=== PATIENT | male | born 1955 | race Caucasian/White ===

== ENCOUNTER 2016-04-22 07:25 | Observation (INO) | payer MEDICARE, OTHER ==
[2016-04-22] MEDS ORDERED: SODIUM CHLORIDE 0.9% 1,000 ML IV STA (08:33)
[2016-04-22] MEDS ORDERED: ONDANSETRON 4 MG/2 ML VIAL IVP STA (08:34)
[2016-04-22] MEDS ORDERED: MORPHINE SULFATE 4 MG/ML SYRINGE IV STA (08:34)
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
[2016-04-22 09:18] LABS: Basophils % (A) 0 %; CH 34.4; CHCM 34.3; Eosinophils # (A) 0.3 k/uL (0-0.7); Eosinophils % (A) 2 %; HCT 55.2 % (39.0-53.0); HDW 2.14; HGB 18.9 gm/dL (13.0-17.5); Luc # (Auto) 0.15; Luc % (Auto) 1; Lymphocytes % (A) 7 %; MCH 34.6 pg (25.0-35.0); MCHC 34.3 g/dL (31.0-37.0); MCV 100.8 fL (80.0-100.0); Mean Platelet Volume 6.9; Monocytes # (A) 0.7 k/uL (0-1.0); Monocytes % (A) 5 %; Neutrophils # (A) 11.2 k/uL (1.3-7.7); Neutrophils % (A) 84 %; RBC 5.47 m/uL (4.30-5.90); RDW 12.9 % (11.5-15.5); WBC 13.3 k/uL (3.8-10.6); WBC (Perox) 13.15
[2016-04-22 09:31] LABS: ALT 62 U/L (21-72); AST 54 U/L (17-59); Alkaline Phosphatase 85 U/L (38-126); Amylase 72 U/L (30-110); Anion Gap 15 mmol/L; Blood Urea Nitrogen 5 mg/dL (9-20); Calcium 9.8 mg/dL (8.4-10.2); Carbon Dioxide 23 mmol/L (22-30); Chloride 107 mmol/L (98-107); Glucose 86 mg/dL (74-99); Magnesium 1.6 mg/dL (1.6-2.3); Non-African American GFR(MDRD) >60 (>60 ml/min/1.73 sqM); Potassium 4.1 mmol/L (3.5-5.1); Sodium 145 mmol/L (137-145); Total Bilirubin 0.7 mg/dL (0.2-1.3); Total Protein 7.8 g/dL (6.3-8.2)
[2016-04-22 09:36] LABS: Creatine Kinase 135 U/L (55-170)
[2016-04-22 09:37] LABS: Alcohol 118 mg/dL
[2016-04-22 09:39] LABS: INR 1.1 (<1.1); Partial Thromboplastin Time 27.4 sec (22.0-30.0); Prothrombin Time 11.1 sec (9.0-12.0)
[2016-04-22 09:50] LABS: Creatine Kinase MB 2.1 ng/mL (0.0-2.4); Troponin I <0.012 ng/mL (0.000-0.034)
[2016-04-22] MEDS ORDERED: HYDROmorphone 1 MG/ML 1 ML SYRINGE IVP STA ×2 (10:40→12:19)
[2016-04-22] MEDS ORDERED: RX INFO: IV CONTRAST WAS GIVEN 1 EACH MISC MISCELLANE PRN (10:44)
--- NOTE | 2016-04-22 10:45 | XR ---
Abdomen HISTORY: Pain Frontal view of the abdomen on 2 images. No comparisons Lung bases show some patchy increased density in the left. No pneumoperitoneum or bowel obstruction e vident. Distortion of the pubic symphysis likely due to remote trauma. There are vascular calcificati ons within the pelvis. IMPRESSION: Nonobstructive bowel gas pattern, additional findings above, correlate for history of tra kacie. There may be some basilar atelectasis, scarring, correlate to exclude pneumonia.
--- NOTE | 2016-04-22 10:47 | XR ---
EXAMINATION TYPE: XR chest 2V DATE OF EXAM: 04/22/2016 10:31 AM COMPARISON: Prior chest x-ray 05 July 2014 HISTORY: Chest pain TECHNIQUE: Frontal and lateral views of the chest are obtained. FINDINGS: Some minimal patchy density may be present at the left heart border. No pneumothorax or pl eural effusion evident. Exam is expiratory, interstitium is slightly increased as on prior exam. Hear t size is stable. Pulmonary vascularity and renetta are within normal limits. IMPRESSION: Expiratory exam. There may be some lingular, basilar atelectasis versus scarring, correla te to exclude pneumonia. Follow-up as indicated.
--- NOTE | 2016-04-22 11:46 | CT ---
EXAMINATION TYPE: CT abdomen pelvis w con DATE OF EXAM: 04/22/2016 11:20 AM COMPARISON: NONE HISTORY: 60-year-old male with left upper quad pain TECHNIQUE: Contiguous axial scanning of the abdomen and pelvis following administration of 100 ml Omn ipaque 300 IV contrast. Delayed images through the kidneys and coronal/sagittal reconstructions perf ormed. CT DLP: 1535 mGycm Automated exposure control for dose reduction was used. FINDINGS: Heart is upper limits of normal in size without pericardial effusion. There is a moderate-sized hiata l hernia. Dependent atelectasis at the left base with some patchy posterior left basilar opacity. Diffuse low-attenuation of the hepatic parenchyma without focal lesion seen. Portal venous system is patent. No biliary ductal dilatation. Gallbladder, adrenal glands, kidneys, spleen, and pancreas appear within normal limits. Mild atherosclerotic calcifications throughout the abdominal aorta and iliac arteries. No dilated small bowel, free fluid, or free air. No mesenteric or retroperitoneal lymphadenopathy seen. Normal appendix. Left hemicolonic diverticulosis along the descending colon and proximal to mid sigmoid colon. No blaise colonic inflammatory change to suggest acute diverticulitis. There is a left lumbar triangle hernia. The herniating retroperitoneal fat measures 7.1 x 5.4 cm. The re is some fat stranding across the 2.0 cm wide hernia neck and within the intra-abdominal space is w ell. Bladder is urine distended. Prostate gland mildly prominent at 4.3 cm wide. No abnormal fluid collect ion in the pelvis or pelvic lymphadenopathy seen. Bones: There appears to be extensive old fracture deformities of the pubic bones, left inferior pubic ramus, and degenerative changes at the left SI joint, mild at both hips. There also appears to be a mildly displaced fracture of the left posterior 11th rib. There appears to have been prior surgical harvesting of the left rectus abdominis muscle. IMPRESSION: 1. LEFT LUMBAR TRIANGLE HERNIA WITH THE HERNIATING FAT MEASURING 7.1 X 5.4 CM. THE HERNIA NECK MEASUR ES 2 CM WIDE. THERE IS SOME FAT STRANDING IN THIS REGION SUGGESTING SOME INFLAMMATION. CORRELATE FOR ANY INCARCERATION. 2. MILDLY DISPLACED ACUTE LEFT POSTERIOR 11TH RIB FRACTURE. 3. LEFT HEMICOLONIC DIVERTICULOSIS WITHOUT ACUTE DIVERTICULITIS. 4. HEPATIC STEATOSIS. CORRELATE WITH LFT's, LIPID PROFILE, AND PATIENT RISK FACTORS. 5. OLD TRAUMA TO THE PUBIC BONES AND LEFT ISCHIAL RAMUS.
[2016-04-22] MEDS ORDERED: NALOXONE 0.4 MG/ML 1 ML VIAL IV PRN (13:12)
[2016-04-22] MEDS ORDERED: SODIUM CHLORIDE 0.9% 1,000 ML IV ONE (13:12)
[2016-04-22] MEDS ORDERED: ACETAMINOPHEN TAB 325 MG TAB PO PRN (13:12)
[2016-04-22] MEDS ORDERED: ONDANSETRON 4 MG/2 ML VIAL IVP PRN (13:12)
[2016-04-22] MEDS: HYDROmorphone 1 MG/ML 1 ML SYRINGE IV PRN ×4 (13:24→22:05)
[2016-04-22] MEDS ORDERED: THIAMINE 100 MG/ML 2 ML VIAL IM STA (14:23)
[2016-04-22] MEDS ORDERED: LORazepam 2 MG/ML SYRINGE IV PRN ×2 (14:23)
[2016-04-22] MEDS: LORazepam 2 MG/ML SYRINGE IV PRN ×3 (14:45→23:57)
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
[2016-04-22] MEDS: THIAMINE 100 MG TAB PO SCH (17:55)
[2016-04-22] MEDS: COLLAGENASE 250 UNIT/GM OINTMENT 30 GM TUBE TOPICAL SCH (17:57)
[2016-04-22] MEDS: SODIUM CHLORIDE 0.9% 1,000 ML IV SCH (18:04)
[2016-04-22 19:23] VITALS: BMI 32.1
[2016-04-22] MEDS: MORPHINE SULFATE ER 15 MG TABLET PO SCH (20:21)
[2016-04-22] MEDS ORDERED: LISINOPRIL 5 MG TAB PO STA (23:19)
[2016-04-22] MEDS ORDERED: MELATONIN 5 MG TABLET PO PRN (23:20)
[2016-04-22] MEDS ORDERED: oxyCODONE-APAP 10-325MG 1 EACH TAB PO PRN (23:21)
[2016-04-23] MEDS: HYDROmorphone 1 MG/ML 1 ML SYRINGE IV PRN ×4 (01:13→10:31)
[2016-04-23] MEDS: SODIUM CHLORIDE 0.9% 1,000 ML IV SCH (04:23)
[2016-04-23 07:24] VITALS: BP 159/93; PULSE 60; RESP 22; TEMP 97.1
[2016-04-23 08:45] LABS: Basophils # (A) 0.1 k/uL (0-0.2); Basophils % (A) 1 %; CH 34.3; CHCM 33.7; Eosinophils # (A) 0.4 k/uL (0-0.7); Eosinophils % (A) 5 %; HCT 51.7 % (39.0-53.0); HDW 2.19; HGB 16.6 gm/dL (13.0-17.5); Luc # (Auto) 0.09; Luc % (Auto) 1; Lymphocytes # (A) 1.2 k/uL (1.0-4.8); Lymphocytes % (A) 13 %; MCH 32.7 pg (25.0-35.0); MCV 102.2 fL (80.0-100.0); Macrocytosis Slight; Mean Platelet Volume 8.1; Monocytes # (A) 0.5 k/uL (0-1.0); Monocytes % (A) 5 %; Neutrophils # (A) 6.8 k/uL (1.3-7.7); Neutrophils % (A) 76 %; RBC 5.06 m/uL (4.30-5.90); RDW 13.1 % (11.5-15.5); WBC (Perox) 8.54
[2016-04-23 08:49] LABS: ALT 50 U/L (21-72); AST 40 U/L (17-59); Alkaline Phosphatase 70 U/L (38-126); Anion Gap 10 mmol/L; Blood Urea Nitrogen 8 mg/dL (9-20); Calcium 9.3 mg/dL (8.4-10.2); Carbon Dioxide 25 mmol/L (22-30); Chloride 104 mmol/L (98-107); Glucose 99 mg/dL (74-99); Non-African American GFR(MDRD) >60 (>60 ml/min/1.73 sqM); Potassium 3.9 mmol/L (3.5-5.1); Sodium 139 mmol/L (137-145); Total Bilirubin 1.2 mg/dL (0.2-1.3); Total Protein 6.5 g/dL (6.3-8.2)
[2016-04-23] MEDS: MORPHINE SULFATE ER 15 MG TABLET PO SCH (08:55)
[2016-04-23 08:56] LABS: Prealbumin 22 mg/dL (18-36)
[2016-04-23] MEDS ORDERED: LISINOPRIL 5 MG TAB PO SCH (09:00)
[2016-04-23] MEDS: LORazepam 2 MG/ML SYRINGE IV PRN (11:54)
[2016-04-23] MEDS: THIAMINE 100 MG TAB PO SCH (11:55)
[2016-04-23] MEDS ORDERED: MULTIVITAMINS, THERA 1 EACH TAB PO SCH (12:00)
[2016-04-23] MEDS ORDERED: FOLIC ACID 1 MG TAB PO SCH (12:00)
[2016-04-23] MEDS ORDERED: NICOTINE 21MG/24HR PATCH TRANSDERM STA (12:02)
[2016-04-23] MEDS: COLLAGENASE 250 UNIT/GM OINTMENT 30 GM TUBE TOPICAL SCH (12:03)
--- NOTE | 2016-04-23 16:16 | P.DS ---
Providers Date of admission: 04/22/16 13:12 Expected date of discharge: 04/23/16 Attending physician: Warren Carrera Primary care physician: Timothy Mccormack [facility] Course: History of Present Illness H&P Date: 04/22/16 60-year-old gentleman with history of alcohol abuse was in the hospital with acute onset left flank pain. Patient apparently had significant amount of pain since January since he fell and broke his rib. Patient however felt something pop today and hence came in the hospital. In the ER patient underwent a computed tomography scan of the abdomen with contrast and was noted to have a left lumbar triangle herniation with fat that is currently incarcerated. Patient denies having any fevers chills nausea vomiting. Patient states the pain is severe and is not able to bear weight on it. Patient was also noted to have a blood alcohol level greater than 100. States that he only had half a beer prior to coming to the hospital due to the severe pain. Patient was admitted multiple times for cellulitis in the past and alcohol use and its consequences. 04/23/2016 Patient was noted to be ambulating around the room. I discussed that pain control is the plan of care. Patient was given morphine XL R 50 mg every 12 hours and Percocet 10 mg/325 mg for breakthrough pain. Patient was discussed the patient should go see a pain specialist. Patient was ambulated without difficulty however patient wanted to stay another 24 hours for IV pain medications. Stated that he is not able to walk however I monitored him walk through his room. GEN appearance appears to be in moderate distress alert oriented 3 Lungs good air entry clear to auscultation no wheezing is appreciated Heart S1 and S2 heart regular rate and rhythm no murmurs appreciated Abdomen is soft and diffusely tender there is point tenderness on the left flank with a prior bruise around the lower ribs on the midaxillary line. Neuro no focal motor or sensory deficits appreciated Skin a previous surgical scars appreciated on the left lower extremity there is a scab that is concerning for eschar Assessment and Plan Plan: #1 severe abdominal pain secondary to fat strangulation of the left lumbar hernia and a rib fracture.. #2 multiple old fractures likely secondary to multiple falls in this patient with alcohol use #3 history of a previous left lower extremity trauma status post surgical repair #4 history of depression #5 COPD #6 hypertension #7 chronic pain syndrome To continue Santyl application to the wound on the left lower x-ray. Wound care will be consulted. Morphine XL R and Percocet for breakthrough will be prescribed. Patient is to be discharged home there is no need for continued inpatient care. appears to have some pain seeking behavior. Apparently in the past patient was admitted multiple times the hospital. Patient stated he was not able to walk however stated that is stable to be discharged he got angry, security had to be called. Patient walked out of the hospital without any difficulty. There is no surgical intervention. Pain management with the above prescribed regimen would have been the plan of care even in the inpatient setting hence patient is discharged home. Patient is referred to pain management as well Patient Condition at Discharge: Good Plan - Discharge Summary New Discharge Prescriptions: Collagenase [Santyl] 1 applic TOPICAL DAILY #1 applic Melatonin 5 mg PO HS PRN #30 tablet PRN Reason: Insomnia Morphine Sulfate ER [Ms Contin] 15 mg PO Q12HR #60 tablet oxyCODONE-APAP 10-325MG [Percocet 10-325 mg] 1 each PO Q8H PRN #60 tab PRN Reason: Moderate Pain Discharge Medication List clonazePAM [Clonazepam] 1 mg PO QID 01/12/16 [History] Lisinopril [Zestril] 5 mg PO DAILY 04/22/16 [History] oxyCODONE-APAP 10-325MG [Percocet 10-325 mg] 1 tab PO TID PRN 04/22/16 [History] Collagenase [Santyl] 1 applic TOPICAL DAILY #1 applic 04/23/16 [Rx] Melatonin 5 mg PO HS PRN #30 tablet 04/23/16 [Rx] Morphine Sulfate ER [Ms Contin] 15 mg PO Q12HR #60 tablet 04/23/16 [Rx] oxyCODONE-APAP 10-325MG [Percocet 10-325 mg] 1 each PO Q8H PRN #60 tab 04/23/16 [Rx] Follow up Appointment(s)/Referral(s): Nneka Edwards MD [STAFF PHYSICIAN] - 1 Week Timothy Marley III, MD [Primary Care Provider] - 1-2 days Candido Andersen MD [STAFF PHYSICIAN] - 1 Week Activity/Diet/Wound Care/Special Instructions: apply santyl on the wound. Discussed with the pt. Discharge Disposition: HOME SELF-CARE
== END 2016-04-23 13:51 | disposition home or self-care (01) ==
LOC: EC 07:25 → 4MS4W 13:12
PROVIDERS: ADMIT Internal Medicine; ATTEND Internal Medicine
DX: K45.8 Other specified abdominal hernia without obstruction or gangrene (principal); S22.32XA Fracture of one rib, left side, initial encounter for closed fracture; R29.6 Repeated falls; F10.10 Alcohol abuse, uncomplicated; F12.90 Cannabis use, unspecified, uncomplicated; F17.210 Nicotine dependence, cigarettes, uncomplicated; F32.9 Major depressive disorder, single episode, unspecified; F41.9 Anxiety disorder, unspecified; F43.10 Post-traumatic stress disorder, unspecified; G89.4 Chronic pain syndrome; I10 Essential (primary) hypertension; I25.2 Old myocardial infarction; J44.9 Chronic obstructive pulmonary disease, unspecified; J45.909 Unspecified asthma, uncomplicated; K57.30 Diverticulosis of large intestine without perforation or abscess without bleeding; M86.68 Other chronic osteomyelitis, other site; Z82.49 Family history of ischemic heart disease and other diseases of the circulatory system; Z82.5 Family history of asthma and other chronic lower respiratory diseases; Z91.19 Patient's noncompliance with other medical treatment and regimen; Z79.899 Other long term (current) drug therapy; Z88.6 Allergy status to analgesic agent; Z88.1 Allergy status to other antibiotic agents; Z88.5 Allergy status to narcotic agent; Z88.0 Allergy status to penicillin; Z88.2 Allergy status to sulfonamides; Z88.8 Allergy status to other drugs, medicaments and biological substances; Y90.5 Blood alcohol level of 100-119 mg/100 ml
CPT/HCPCS: 99285 ×2; 96374 ×2; 96375 ×4; 96376 ×4; 96361 ×4; 96372; 36415; 93005; 84134; 80053 ×2; 82150; 82550; 82553; 83690; 83735; 84484; 85025 ×2; 85610; 85730; 80320; 71020; 74000; 74177; G0378 ×2; J2060 ×2; J2270; J3411; J2405; J1170 ×2; Q9967

== ENCOUNTER 2016-07-07 16:57 | Inpatient (IN) | payer MEDICARE, OTHER ==
[2016-07-07] MEDS ORDERED: IV VANCOMYCIN PER PHARMACY 1 EACH MISC MISCELLANE PRN (18:58)
[2016-07-07] MEDS ORDERED: VANCOMYCIN 1,500 MG in SODIUM CHLORIDE 0.9% 250 ML IVPB ONE (18:58)
[2016-07-07 19:37] LABS: Basophils # (A) 0.1 k/uL (0-0.2); Basophils % (A) 1 %; CH 34.3; CHCM 33.6; Eosinophils # (A) 0.4 k/uL (0-0.7); Eosinophils % (A) 5 %; HCT 53.9 % (39.0-53.0); HDW 2.14; Luc # (Auto) 0.19; Luc % (Auto) 2; Lymphocytes # (A) 1.3 k/uL (1.0-4.8); Lymphocytes % (A) 16 %; MCH 34.2 pg (25.0-35.0); MCHC 33.3 g/dL (31.0-37.0); MCV 102.6 fL (80.0-100.0); Macrocytosis Slight; Mean Platelet Volume 7.2; Monocytes # (A) 0.6 k/uL (0-1.0); Monocytes % (A) 7 %; Neutrophils # (A) 5.8 k/uL (1.3-7.7); Neutrophils % (A) 70 %; RBC 5.26 m/uL (4.30-5.90); RDW 12.8 % (11.5-15.5); WBC 8.3 k/uL (3.8-10.6); WBC (Perox) 8.62
[2016-07-07] MEDS: SODIUM CHLORIDE 0.9% 1,000 ML IV SCH (19:37)
[2016-07-07 19:49] LABS: ALT 67 U/L (21-72); AST 76 U/L (17-59); Alkaline Phosphatase 74 U/L (38-126); Anion Gap 12 mmol/L; Blood Urea Nitrogen 10 mg/dL (9-20); Carbon Dioxide 24 mmol/L (22-30); Chloride 102 mmol/L (98-107); Glucose 80 mg/dL (74-99); Non-African American GFR(MDRD) >60 (>60 ml/min/1.73 sqM); Potassium 4.5 mmol/L (3.5-5.1); Sodium 138 mmol/L (137-145); Total Bilirubin 0.8 mg/dL (0.2-1.3); Total Protein 7.5 g/dL (6.3-8.2)
[2016-07-07] MEDS: oxyCODONE-APAP 10-325MG 1 EACH TAB PO PRN (22:16)
[2016-07-07] MEDS: GABAPENTIN 300 MG CAP PO PRN (22:41)
[2016-07-07] MEDS: clonazePAM 1 MG TAB PO PRN (22:41)
[2016-07-07] MEDS ORDERED: LISINOPRIL 5 MG TAB PO STA (23:47)
[2016-07-08] MEDS: traMADol 50 MG TAB PO PRN ×3 (00:14→19:04)
[2016-07-08] MEDS: VANCOMYCIN 1,500 MG in SODIUM CHLORIDE 0.9% 250 ML IVPB SCH ×3 (04:12→20:57)
[2016-07-08] MEDS: oxyCODONE-APAP 10-325MG 1 EACH TAB PO PRN ×4 (04:12→22:47)
[2016-07-08] MEDS: clonazePAM 1 MG TAB PO PRN ×4 (04:54→22:47)
[2016-07-08] MEDS: SODIUM CHLORIDE 0.9% 1,000 ML IV SCH ×3 (06:28→20:59)
[2016-07-08] MEDS: LISINOPRIL 5 MG TAB PO SCH (09:19)
[2016-07-08] MEDS: MORPHINE SULFATE ER 15 MG TABLET PO SCH ×2 (09:19→20:57)
[2016-07-08] MEDS: COLLAGENASE 250 UNIT/GM OINTMENT 30 GM TUBE TOPICAL SCH (09:20)
[2016-07-08] MEDS: NICOTINE 21MG/24HR PATCH TRANSDERM SCH (11:10)
[2016-07-08] MEDS: MULTIVITAMINS, THERA 1 EACH TAB PO SCH (11:23)
[2016-07-08] MEDS: GABAPENTIN 300 MG CAP PO PRN ×2 (11:23→23:25)
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
[2016-07-08] MEDS ORDERED: VANCOMYCIN TROUGH DUE 1 EACH MISC MISCELLANE ONE (19:00)
[2016-07-09] MEDS: traMADol 50 MG TAB PO PRN ×3 (01:09→16:00)
[2016-07-09] MEDS: VANCOMYCIN 1,500 MG in SODIUM CHLORIDE 0.9% 250 ML IVPB SCH ×2 (03:08→11:28)
[2016-07-09] MEDS: clonazePAM 1 MG TAB PO PRN ×2 (05:33→13:10)
[2016-07-09] MEDS: oxyCODONE-APAP 10-325MG 1 EACH TAB PO PRN ×2 (05:33→13:09)
[2016-07-09 07:27] VITALS: RESP 16
[2016-07-09] MEDS: MORPHINE SULFATE ER 15 MG TABLET PO SCH (08:23)
[2016-07-09] MEDS: LISINOPRIL 5 MG TAB PO SCH (08:23)
[2016-07-09] MEDS: NICOTINE 21MG/24HR PATCH TRANSDERM SCH (08:24)
[2016-07-09] MEDS: COLLAGENASE 250 UNIT/GM OINTMENT 30 GM TUBE TOPICAL SCH (11:28)
[2016-07-09] MEDS: SODIUM CHLORIDE 0.9% 1,000 ML IV SCH (11:28)
[2016-07-09] MEDS: GABAPENTIN 300 MG CAP PO PRN (12:06)
[2016-07-09] MEDS: MULTIVITAMINS, THERA 1 EACH TAB PO SCH (12:06)
[2016-07-09 15:16] VITALS: BP 122/88; PULSE 88; TEMP 97.2
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
== END 2016-07-09 17:52 | disposition home or self-care (01) | DRG 603 ==
LOC: 4MS4W 17:02
PROVIDERS: ADMIT Internal Medicine; ATTEND Internal Medicine
DX: L03.116 Cellulitis of left lower limb (principal); F11.20 Opioid dependence, uncomplicated; I10 Essential (primary) hypertension; S81.802D Unspecified open wound, left lower leg, subsequent encounter; J45.909 Unspecified asthma, uncomplicated; J44.9 Chronic obstructive pulmonary disease, unspecified; G89.29 Other chronic pain; M19.91 Primary osteoarthritis, unspecified site; I25.2 Old myocardial infarction; F32.9 Major depressive disorder, single episode, unspecified; I87.8 Other specified disorders of veins; F43.10 Post-traumatic stress disorder, unspecified; F10.10 Alcohol abuse, uncomplicated; F17.210 Nicotine dependence, cigarettes, uncomplicated; R26.2 Difficulty in walking, not elsewhere classified; Z16.24 Resistance to multiple antibiotics; Z91.19 Patient's noncompliance with other medical treatment and regimen; F12.90 Cannabis use, unspecified, uncomplicated; Z87.828 Personal history of other (healed) physical injury and trauma; Z86.14 Personal history of Methicillin resistant Staphylococcus aureus infection; Z88.1 Allergy status to other antibiotic agents; Z88.2 Allergy status to sulfonamides; Z88.8 Allergy status to other drugs, medicaments and biological substances; Z79.899 Other long term (current) drug therapy; V89.2XXS Person injured in unspecified motor-vehicle accident, traffic, sequela
CPT/HCPCS: 80053; 80202; 85025; 87070; 87075; 87077; 87186; 87205

== ENCOUNTER 2018-05-07 20:12 | Inpatient (IN) | payer MEDICARE, OTHER ==
[2018-05-07] MEDS ORDERED: ACETAMINOPHEN TAB 500 MG TAB PO STA (20:58)
[2018-05-07] MEDS ORDERED: ONDANSETRON 4 MG/2 ML VIAL IVP STA (20:58)
[2018-05-07] MEDS ORDERED: MORPHINE SULFATE 4 MG/ML SYRINGE IVP STA (20:58)
[2018-05-07] MEDS ORDERED: SODIUM CHLORIDE 0.9% 1,000 ML IV ONE (20:58)
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
[2018-05-07 22:11] LABS: Basophils % (A) 0 %; Eosinophils # (A) 0.4 k/uL (0-0.7); Eosinophils % (A) 4 %; HCT 51.5 % (39.0-53.0); HGB 17.8 gm/dL (13.0-17.5); Lymphocytes # (A) 1.2 k/uL (1.0-4.8); Lymphocytes % (A) 12 %; MCH 35.4 pg (25.0-35.0); MCHC 34.6 g/dL (31.0-37.0); MCV 102.2 fL (80.0-100.0); Macrocytosis Slight; Mean Platelet Volume 7.4; Monocytes # (A) 0.7 k/uL (0-1.0); Monocytes % (A) 7 %; Neutrophils # (A) 7.5 k/uL (1.3-7.7); Neutrophils % (A) 75 %; Platelet Count 265 k/uL (150-450); RBC 5.03 m/uL (4.30-5.90); RDW 12.4 % (11.5-15.5)
--- NOTE | 2018-05-07 22:15 | XR ---
EXAMINATION TYPE: XR tibia fibula LT DATE OF EXAM: 05/07/2018 COMPARISON: 05/07/2018 HISTORY: Pain TECHNIQUE: 2 views FINDINGS: There is old fracture mid shaft of the tibia. I see no acute fracture nor dislocation. Ther e is no focal bone destruction. There is muscle atrophy. There is old fracture of the head of the fib jaime also. There is a transverse screw fixing the proximal tibia. Ankle mortise is anatomic. IMPRESSION: Old fractures. No acute fracture seen. No change compared to old exam. No sign of osteomy elitis.
[2018-05-07 22:21] LABS: ALT 40 U/L (21-72); AST 75 U/L (17-59); Albumin 4.1 g/dL (3.5-5.0); Alcohol 14 mg/dL; Alkaline Phosphatase 115 U/L (38-126); Anion Gap 11 mmol/L; Blood Urea Nitrogen 3 mg/dL (9-20); Calcium 9.9 mg/dL (8.4-10.2); Carbon Dioxide 25 mmol/L (22-30); Chloride 105 mmol/L (98-107); Glucose 86 mg/dL (74-99); Sodium 141 mmol/L (137-145); Total Bilirubin 0.9 mg/dL (0.2-1.3); Total Protein 8.2 g/dL (6.3-8.2)
[2018-05-07 22:23] LABS: Potassium 4.6 mmol/L (3.5-5.1)
[2018-05-07] MEDS ORDERED: VANCOMYCIN IV PER PHARMACY 1 EACH MISC MISCELLANE PRN (23:32)
[2018-05-07] MEDS ORDERED: HYDROmorphone 1 MG/ML 1 ML SYRINGE IVP STA (23:32)
[2018-05-07] MEDS ORDERED: VANCOMYCIN 1,500 MG in SODIUM CHLORIDE 0.9% 250 ML IVPB ONE (23:45)
[2018-05-08] MEDS ORDERED: LORazepam 2 MG/ML INJ IV PRN ×3 (01:26)
[2018-05-08] MEDS ORDERED: THIAMINE 100 MG/ML 2 ML VIAL IM STA (01:26)
[2018-05-08] MEDS: HYDROmorphone 0.5 MG/0.5 ML SYRINGE IVP PRN ×7 (01:35→21:15)
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
[2018-05-08] MEDS: KETOROLAC 30 MG/ML 1 ML VIAL IVP SCH ×4 (02:58→18:11)
[2018-05-08] MEDS: HEPARIN SODIUM,PORCINE 5,000 UNIT/ML 1 ML VIAL SQ SCH ×2 (07:48→15:35)
[2018-05-08] MEDS: PANTOPRAZOLE 40 MG TABLET PO SCH (07:48)
[2018-05-08] MEDS: VANCOMYCIN 1,000 MG in SODIUM CHLORIDE 0.9% 250 ML IVPB SCH ×2 (11:33→18:11)
[2018-05-08] MEDS: COLLAGENASE 250 UNIT/GM OINTMENT 30 GM TUBE TOPICAL SCH (17:37)
[2018-05-08] MEDS: THIAMINE 100 MG TAB PO SCH (17:37)
[2018-05-08] MEDS: CALCIUM CARBONATE 500 MG CHEWABLE PO PRN (17:39)
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
[2018-05-09] MEDS: HYDROmorphone 0.5 MG/0.5 ML SYRINGE IVP PRN ×8 (00:20→23:44)
[2018-05-09] MEDS: HEPARIN SODIUM,PORCINE 5,000 UNIT/ML 1 ML VIAL SQ SCH ×4 (00:20→23:44)
[2018-05-09] MEDS: CALCIUM CARBONATE 500 MG CHEWABLE PO PRN ×3 (00:20→17:34)
[2018-05-09] MEDS: KETOROLAC 30 MG/ML 1 ML VIAL IVP SCH ×5 (00:20→23:45)
[2018-05-09] MEDS: MELATONIN 3 MG TABLET PO SCH ×2 (00:22→21:36)
[2018-05-09] MEDS: VANCOMYCIN 1,000 MG in SODIUM CHLORIDE 0.9% 250 ML IVPB SCH ×3 (01:44→16:49)
[2018-05-09] MEDS ORDERED: VANCOMYCIN TROUGH DUE 1 EACH MISC MISCELLANE ONE (09:00)
[2018-05-09] MEDS: PANTOPRAZOLE 40 MG TABLET PO SCH (09:01)
[2018-05-09] MEDS: COLLAGENASE 250 UNIT/GM OINTMENT 30 GM TUBE TOPICAL SCH (09:05)
[2018-05-09 09:29] LABS: Anion Gap 3 mmol/L; Blood Urea Nitrogen 7 mg/dL (9-20); Calcium 9.1 mg/dL (8.4-10.2); Carbon Dioxide 25 mmol/L (22-30); Chloride 108 mmol/L (98-107); Glucose 95 mg/dL (74-99); Potassium 4.6 mmol/L (3.5-5.1); Sodium 136 mmol/L (137-145)
[2018-05-09] MEDS: LORazepam 1 MG TAB PO PRN ×2 (09:30→18:58)
[2018-05-09] MEDS: THIAMINE 100 MG TAB PO SCH ×2 (11:57→16:49)
--- NOTE | 2018-05-09 16:46 | NM ---
EXAMINATION TYPE: NM bone 3 phase DATE OF EXAM: 05/09/2018 COMPARISON: 08/30/2013 HISTORY: Leg wound Triple phase bone scintigraphy was performed following the injection of 21.9 mCi Tc 99m MDP. Immedia te images and 3 hours post injection images acquired. FINDINGS: The flow study shows hyperemia over the entire left lower leg. Delayed images show focal intense incr eased uptake in the mid shaft of the tibia and in the adjacent fibula. The tibia x-ray of 05/07/2018 s hows mild fractures of the midshaft of the tibia and fibula. IMPRESSION: There is hyperemia of the lower leg with delayed increased uptake in the tibia and fibula at the frac ture sites. This is nonspecific. Increased uptake is more than old bone scan of 08/30/2013. There is n o significant hyperemia on the flow study involving the fracture sites. This is more likely related t o stress related phenomenon and healing fractures. Delayed uptake in the tibia is at 2 locations whic h is more likely related to healing fracture than osteomyelitis.
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
--- NOTE | 2018-05-09 22:49 | PN ---
PROGRESS NOTE DATE OF SERVICE: 05/09/2018 REASON FOR FOLLOWUP: Left leg wound with secondary cellulitis, possible MRSA. INTERVAL HISTORY: The patient is afebrile. He complains of not getting his Ativan and pain medication as he wanted; he continued complaining of pain to the left leg. Denies having any chest pain or shortness of breath or cough. No abdominal pain or any diarrhea. PHYSICAL EXAMINATION: Blood pressure is 154/91 with a pulse 63, temperature 97.6. He is 96% on room air. General description is a middle-aged male lying in bed in no distress. RESPIRATORY SYSTEM: Unlabored breathing. Clear to auscultation anteriorly. HEART: S1, S2. Regular rate and rhythm. ABDOMEN: Soft. No tenderness. Left foot is currently dressed up. No obvious drainage on the dressing. LABS: White count of 10,000 with a BUN of 7, creatinine 0.55. Vancomycin level 15.7. CRP normal. Sed rate 18. The bone scan was not suspicious for osteomyelitis. Patient's blood culture reported positive for gram-negative bacilli . DIAGNOSTIC IMPRESSION AND PLAN: Patient admitted to hospital with left leg wound with secondary cellulitis, the culture presumptive methicillin-resistant Staphylococcus aeruginosa. Patient is currently covered with vancomycin. However, the blood culture came back positive for gram- negative bacilli, for which identified. We will repeat the blood cultures bacteremia. Will add Azactam to cover for the gram-negative while waiting for the final ID and sensitivity. Local wound care to continue with Santyl. Continue supportive care. MMODL / IJN: [id number] /
[2018-05-10] MEDS: AZTREONAM 2 GM in SODIUM CHLORIDE 0.9% 100 ML IVPB SCH ×2 (00:19→08:44)
[2018-05-10] MEDS: LORazepam 1 MG TAB PO PRN ×3 (02:31→18:01)
[2018-05-10] MEDS: HYDROmorphone 0.5 MG/0.5 ML SYRINGE IVP PRN ×8 (02:31→23:56)
[2018-05-10] MEDS: VANCOMYCIN 1,000 MG in SODIUM CHLORIDE 0.9% 250 ML IVPB SCH ×2 (02:55→09:45)
[2018-05-10] MEDS: KETOROLAC 30 MG/ML 1 ML VIAL IVP SCH ×4 (05:43→23:20)
[2018-05-10] MEDS: HEPARIN SODIUM,PORCINE 5,000 UNIT/ML 1 ML VIAL SQ SCH ×3 (08:46→23:19)
[2018-05-10] MEDS: THIAMINE 100 MG TAB PO SCH ×2 (08:46→18:02)
[2018-05-10] MEDS: PANTOPRAZOLE 40 MG TABLET PO SCH (08:46)
[2018-05-10] MEDS: COLLAGENASE 250 UNIT/GM OINTMENT 30 GM TUBE TOPICAL SCH (08:49)
[2018-05-10 10:11] LABS: Anion Gap 7 mmol/L; Blood Urea Nitrogen 6 mg/dL (9-20); Calcium 9.2 mg/dL (8.4-10.2); Carbon Dioxide 25 mmol/L (22-30); Chloride 105 mmol/L (98-107); Glucose 89 mg/dL (74-99); Potassium 4.7 mmol/L (3.5-5.1); Sodium 137 mmol/L (137-145)
[2018-05-10] MEDS: CEFEPIME 2 GM in SODIUM CHLORIDE 0.9% 50 ML IVPB SCH ×2 (11:51→20:42)
--- NOTE | 2018-05-10 12:24 | P.PN ---
Subjective Progress Note Date: 05/10/18 The patient was seen and examined at the bedside on 05/10/2018. The patient was resting comfortably though endorsed 10/10 left lower extremity pain which he notes is been ongoing for the past 15 years. He otherwise denied fever, chills, or cough. He also denied chest pain, shortness of breath, abdominal pain, nausea, vomiting or diarrhea. Objective - Vital Signs Vital signs: Vital Signs Temp 98.1 F 05/10/18 07:48 Pulse 63 05/10/18 07:48 Resp 16 05/10/18 07:48 BP 168/83 05/10/18 07:48 Pulse Ox 98 05/10/18 07:48 Intake & Output 05/09/18 05/10/18 05/10/18 18:59 06:59 18:59 Intake Total 1200 925 Balance 1200 925 Intake: Oral 1200 925 Other: Voiding Method Toilet Toilet # Voids 2 2 - Exam General: Non-toxic, in no acute distress, appears stated age, normal weight HEENT: NC/AT, anicteric sclerae, moist conjunctiva, no lid-lag, PERRLA, poor dentition Cardiovascular: S1/S2 wnl, no murmurs, rubs, or gallops Lungs: Clear to auscultation, normal respiratory effort, no accessory muscle use Abdominal: Soft, non-tender, non-distended, no guarding, rebound, or rigidity Skin: Warm, dry Extremities: Deformity of the LLE w/ healed scars, left extremity draining ulcer Psychiatric: Alert and oriented to person, place and time, appropriate affect Neuro: CN II-XII grossly intact, Strength 5/5 in all 4 extremities, Speech intact, Sensation to light touch grossly intact throughout - Labs CBC & Chem 7: 05/07/18 21:45 05/10/18 08:58 Labs: Abnormal Lab Results - Last 24 Hours (Table) 05/10/18 Range/Units 08:58 BUN 6 L (9-20) mg/dL Creatinine 0.51 L (0.66-1.25) mg/dL Microbiology - Last 24 Hours (Table) 05/07/18 21:45 Blood Culture Gram Stain - Preliminary Blood Blood Culture - Preliminary Gram Neg Bacilli 05/07/18 21:45 Gram Stain - Preliminary Leg - Left Wound Culture - Preliminary Staphylococcus aureus Gram Neg Bacilli Assessment and Plan Plan: LLE cellulitis, with chronic draining wound; Gram negative bactaremia -ID and vascular surgery consult appreciated -Continue with vancomycin and Cefepime as per ID recs. -Nuclear medicine bone scan appreciated, low likelihood of osteomyelitis -Continue with wound care and follow-up cultures -Continue with pain control with Dilaudid 0.5 mg Anxiety with alcohol abuse -CIWA scale -Seizure, aspiration, fall precautions -Psychiatry consult pending -Patient denying suicidal ideation DVT//GI prophylaxis -Heparin -Protonix Discussed with: Patient Anticipated discharge date: 05/12/[address]: Home A total of 35 minutes was spent on the care of this complex patient more than 50 % of the time was spent in counseling and care coordination.
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
--- NOTE | 2018-05-10 23:20 | PN ---
PROGRESS NOTE DATE OF SERVICE: 05/10/2018. REASON FOR FOLLOWUP: Left leg wound, bacteremia. INTERVAL HISTORY: The patient is afebrile. The patient has been complaining of not getting enough medication for anxiety and pain. The patient denies having any chest pain. No shortness of breath or cough. He is complaining of pain to the left leg area. He was told that his bone scan came back negative. He is questioning the way this was performed and more likely not done correctly as the patient has been insisting on getting a PICC line and [facility] discharge. PHYSICAL EXAMINATION: Blood pressure is 164/90 with a pulse of 72, temperature 97.9, he is 98% on room air. GENERAL DESCRIPTION: A middle-aged male lying in bed in no distress. RESPIRATORY SYSTEM: Unlabored breathing. Clear to auscultation anteriorly. HEART: S1, S2. Regular rate and rhythm. ABDOMEN: Soft, no tenderness. EXTREMITIES: Left leg wound clean. Drainage on the dressing. LABS: BUN of 6, creatinine 0.51 with ____ 15.7. Blood culture with gram-negative bacilli. Leg culture with MSSA and gram negative bacilli. IMPRESSION AND PLAN: Patient with left leg nonhealing wound, chronic, in this patient with bone scan negative. The patient's CRP is normal and sed rate is not elevated. This goes against osteomyelitis, however, the patient did have evidence of bacteremia that will be treated more aggressively. Wound culture showing MSSA. He will discontinue Azactam and vancomycin, start the patient on cefepime 2 g every 12 hours. The patient does have history of PENICILLIN allergy, but no cephalexin. will be safe and we will monitor his clinical course closely. Local care to continue with [facility]. MMYUDYL / IJN: [id number] /
[2018-05-10] MEDS: MELATONIN 3 MG TABLET PO SCH (23:56)
[2018-05-11] MEDS: LORazepam 1 MG TAB PO PRN ×3 (01:05→16:29)
[2018-05-11] MEDS: HYDROmorphone 0.5 MG/0.5 ML SYRINGE IVP PRN ×8 (03:03→23:51)
[2018-05-11] MEDS: CALCIUM CARBONATE 500 MG CHEWABLE PO PRN (03:31)
[2018-05-11] MEDS: KETOROLAC 30 MG/ML 1 ML VIAL IVP SCH ×3 (05:57→18:42)
[2018-05-11] MEDS: HEPARIN SODIUM,PORCINE 5,000 UNIT/ML 1 ML VIAL SQ SCH ×2 (07:40→15:48)
[2018-05-11] MEDS: PANTOPRAZOLE 40 MG TABLET PO SCH (07:44)
[2018-05-11] MEDS: CEFEPIME 2 GM in SODIUM CHLORIDE 0.9% 50 ML IVPB SCH ×2 (07:44→20:30)
[2018-05-11] MEDS: COLLAGENASE 250 UNIT/GM OINTMENT 30 GM TUBE TOPICAL SCH (07:45)
[2018-05-11 12:09] LABS: Anion Gap 10 mmol/L; Blood Urea Nitrogen 10 mg/dL (9-20); Calcium 9.5 mg/dL (8.4-10.2); Carbon Dioxide 23 mmol/L (22-30); Chloride 104 mmol/L (98-107); Glucose 93 mg/dL (74-99); Potassium 4.4 mmol/L (3.5-5.1); Sodium 137 mmol/L (137-145)
[2018-05-11] MEDS: THIAMINE 100 MG TAB PO SCH ×2 (12:14→16:29)
--- NOTE | 2018-05-11 16:40 | US ---
EXAMINATION TYPE: US abdomen limited DATE OF EXAM: 05/11/2018 COMPARISON: 04/22/2016 CLINICAL HISTORY: 62-year-old male, LUQ pain TECHNIQUE: Multiple sonographic images of the left upper quadrant are obtained. FINDINGS: EXAM MEASUREMENTS: Spleen: 12.3 cm Left Kidney: 11.2 x 5.1 x 4.9cm 1. Spleen: appears wnl 2. Left Kidney: no evidence of hydronephrosis IMPRESSION: Normal size spleen. No hydronephrosis on the left.
--- NOTE | 2018-05-11 19:17 | P.PN ---
Subjective Patient was seen and examined at the bedside. He notes that his pain is better controlled. He denied any chest pain, shortness of breath, fever, chills, nausea, or vomiting. Objective - Vital Signs Vital signs: Vital Signs Temp 98.6 F 05/11/18 14:33 Pulse 72 05/11/18 14:33 Resp 18 05/11/18 16:00 BP 172/97 05/11/18 14:33 Pulse Ox 98 05/11/18 14:33 Intake & Output 05/11/18 05/11/18 05/12/18 06:59 18:59 06:59 Intake Total 1240 Balance 1240 Intake: Oral 1240 Other: Voiding Method Toilet # Voids 2 2 - Exam General: Non-toxic, in no acute distress, appears stated age, normal weight HEENT: NC/AT, anicteric sclerae, moist conjunctiva, no lid-lag, PERRLA, poor dentition Cardiovascular: S1/S2 wnl, no murmurs, rubs, or gallops Lungs: Clear to auscultation, normal respiratory effort, no accessory muscle use Abdominal: Soft, non-tender, non-distended, no guarding, rebound, or rigidity Skin: Warm, dry Extremities: Deformity of the LLE w/ healed scars, left extremity draining ulcer , dressing in place, clean, dry Psychiatric: Alert and oriented to person, place and time, appropriate affect Neuro: CN II-XII grossly intact, Strength 5/5 in all 4 extremities, Speech intact, Sensation to light touch grossly intact throughout - Labs CBC & Chem 7: 05/07/18 21:45 05/11/18 11:23 Labs: Abnormal Lab Results - Last 24 Hours (Table) 05/11/18 Range/Units 11:23 Creatinine 0.59 L (0.66-1.25) mg/dL Microbiology - Last 24 Hours (Table) 05/07/18 21:45 Blood Culture Gram Stain - Preliminary Blood Blood Culture - Preliminary Gram Neg Bacilli Micrococcus species 05/09/18 23:53 Blood Culture - Preliminary Blood No Growth after 24 hours Assessment and Plan Plan: LLE cellulitis, with chronic draining wound; Gram negative bactaremia -ID and vascular surgery consult appreciated -Continue with vancomycin and Cefepime as per ID recs. -Nuclear medicine bone scan appreciated, low likelihood of osteomyelitis -Continue with wound care and follow-up cultures -Continue with pain control with Dilaudid 0.5 mg Anxiety with alcohol abuse -CIWA scale -Seizure, aspiration, fall precautions -Psychiatry consult appreciated DVT//GI prophylaxis -Heparin -Protonix Discussed with: Patient Anticipated discharge date: 05/12/[address]: Home A total of 35 minutes was spent on the care of this complex patient more than 50 % of the time was spent in counseling and care coordination.
[2018-05-11] MEDS: MELATONIN 3 MG TABLET PO SCH (20:31)
--- NOTE | 2018-05-12 00:30 | PN ---
PROGRESS NOTE DATE OF SERVICE: 05/11/2018. REASON FOR FOLLOWUP: Left leg wound cellulitis and bacteremia. INTERVAL HISTORY: The patient is currently afebrile. He is breathing comfortably. Denies having any chest pain, cough, abdominal pain. Pain to the left leg has slightly decreased. PHYSICAL EXAMINATION: Blood pressure is 173/97 with a pulse of 72, temperature 98.6, he is 98% on room air. GENERAL DESCRIPTION: A middle-aged male lying in bed in no distress. RESPIRATORY SYSTEM: Unlabored breathing. Clear to auscultation anteriorly. HEART: S1, S2. Regular rate and rhythm. ABDOMEN: Soft. LABS: BUN of 10, creatinine 0.59. Blood culture repeat has been negative so far. Culture with Staph aureus with the gram-negative bacilli. Blood cultures with gram-negative 10 micrococcus species. DIAGNOSTIC IMPRESSION AND PLAN: Patient with chronic nonhealing wound to the left flank. Patient with underlying osteomyelitis as his ERP and sedimentation rate were significantly elevated and bone scan was negative. However, the patient did have evidence of a gram-negative bacteremia awaiting final ID pathogen. Antibiotics continue in the form of cefepime. Continue supportive care. MMODL / IJN: [id number] /
[2018-05-12] MEDS: HEPARIN SODIUM,PORCINE 5,000 UNIT/ML 1 ML VIAL SQ SCH ×3 (01:04→14:50)
[2018-05-12] MEDS: LORazepam 1 MG TAB PO PRN ×3 (01:06→16:02)
[2018-05-12] MEDS: KETOROLAC 30 MG/ML 1 ML VIAL IVP SCH (01:07)
[2018-05-12] MEDS: HYDROmorphone 0.5 MG/0.5 ML SYRINGE IVP PRN ×7 (03:11→21:44)
[2018-05-12] MEDS: CEFEPIME 2 GM in SODIUM CHLORIDE 0.9% 50 ML IVPB SCH ×2 (08:21→21:43)
[2018-05-12] MEDS: PANTOPRAZOLE 40 MG TABLET PO SCH (08:21)
[2018-05-12] MEDS: THIAMINE 100 MG TAB PO SCH ×2 (08:21→16:05)
[2018-05-12] MEDS: COLLAGENASE 250 UNIT/GM OINTMENT 30 GM TUBE TOPICAL SCH (08:22)
[2018-05-12 11:06] LABS: HGB 15.3 gm/dL (13.0-17.5); MCH 33.7 pg (25.0-35.0); MCHC 31.9 g/dL (31.0-37.0); MCV 105.8 fL (80.0-100.0); Macrocytosis Slight; Mean Platelet Volume 7.5; Platelet Count 223 k/uL (150-450); RBC 4.53 m/uL (4.30-5.90); RDW 12.5 % (11.5-15.5); WBC 9.6 k/uL (3.8-10.6)
--- NOTE | 2018-05-12 15:05 | P.PN ---
Subjective Progress Note Date: 05/12/18 Patient was seen and examined at the bedside. Patient continues to complain of generalized pain. He denied fever, chills, chest pain, shortness breath, nausea , vomiting. Objective - Vital Signs Vital signs: Vital Signs Temp 98.0 F 05/12/18 05:48 Pulse 62 05/12/18 05:48 Resp 16 05/12/18 05:48 BP 174/88 05/12/18 05:48 Pulse Ox 97 05/12/18 05:48 Intake & Output 05/11/18 05/12/18 05/12/18 18:59 06:59 18:59 Other: Voiding Method Toilet # Voids 2 2 - Exam General: Non-toxic, in no acute distress, appears stated age, normal weight HEENT: NC/AT, anicteric sclerae, moist conjunctiva, no lid-lag, PERRLA, poor dentition Cardiovascular: S1/S2 wnl, no murmurs, rubs, or gallops Lungs: Clear to auscultation, normal respiratory effort, no accessory muscle use Abdominal: Soft, non-tender, non-distended, no guarding, rebound, or rigidity Skin: Warm, dry Extremities: Deformity of the LLE w/ healed scars, left extremity draining ulcer , dressing in place, clean, dry Psychiatric: Alert and oriented to person, place and time, appropriate affect Neuro: CN II-XII grossly intact, Strength 5/5 in all 4 extremities, Speech intact, Sensation to light touch grossly intact throughout - Labs CBC & Chem 7: 05/12/18 10:21 05/11/18 11:23 Labs: Abnormal Lab Results - Last 24 Hours (Table) 05/12/18 Range/Units 10:21 MCV 105.8 H (80.0-100.0) fL Microbiology - Last 24 Hours (Table) 05/07/18 21:45 Gram Stain - Final Leg - Left Wound Culture - Final Staphylococcus aureus Alcaligen. faecalis 05/07/18 21:45 Blood Culture Gram Stain - Final Blood Blood Culture - Final Acinetobacter lwoffi grp Micrococcus species 05/09/18 23:53 Blood Culture - Preliminary Blood No Growth after 48 hours Assessment and Plan Plan: LLE cellulitis, with chronic draining wound; Gram negative bactaremia -ID and vascular surgery consult appreciated -Continue with vancomycin and Cefepime as per ID recs. -Nuclear medicine bone scan appreciated, low likelihood of osteomyelitis -Continue with wound care and follow-up cultures -Continue with pain control with Dilaudid 0.5 mg Anxiety with alcohol abuse -CIWA scale -Seizure, aspiration, fall precautions -Psychiatry consult appreciated DVT//GI prophylaxis -Heparin -Protonix Discussed with: Patient Anticipated discharge date: 05/13/[address]: Home A total of 35 minutes was spent on the care of this complex patient more than 50 % of the time was spent in counseling and care coordination.
[2018-05-12] MEDS: MELATONIN 3 MG TABLET PO SCH (21:44)
[2018-05-13] MEDS ORDERED: LORATADINE 10 MG TAB PO STA (00:26)
[2018-05-13] MEDS: HYDROmorphone 0.5 MG/0.5 ML SYRINGE IVP PRN ×7 (00:26→18:33)
[2018-05-13] MEDS ORDERED: methylPREDNISolone SOD SUCCI 125 MG/2 ML VIAL IV STA (00:26)
[2018-05-13] MEDS ORDERED: FAMOTIDINE 20 MG/2 ML VIAL IV STA (00:26)
[2018-05-13] MEDS ORDERED: SODIUM CHLORIDE 0.9% 1,000 ML IV ONE (00:36)
[2018-05-13] MEDS: HEPARIN SODIUM,PORCINE 5,000 UNIT/ML 1 ML VIAL SQ SCH ×4 (00:51→22:02)
[2018-05-13] MEDS: LORazepam 1 MG TAB PO PRN ×3 (01:16→16:36)
--- NOTE | 2018-05-13 01:52 | PN ---
PROGRESS NOTE DATE OF SERVICE: 05/12/2018. REASON FOR FOLLOWUP: Left leg wound with bacteremia. INTERVAL HISTORY: The patient is currently afebrile. He is breathing comfortably. Denies any chest pain. No cough or abdominal pain. left leg area. PHYSICAL EXAMINATION: Blood pressure 160/85 with a pulse of 73, temperature 98.4. He is 96% on room air. General description is a middle-aged male lying in bed in no distress. Respiratory system: Unlabored breathing. Clear to auscultation anteriorly. Heart S1, S2. Regular rate and rhythm. Abdomen soft, no tenderness. Left leg with minimal slough tissue. Surrounding swelling has improved with change of dressing and no drainage. LABS: Hemoglobin 15, white count 9.6. Blood culture with patient. The leg wound culture MSSA. DIAGNOSTIC IMPRESSION AND PLAN: Patient with left leg wound with secondary cellulitis. Culture positive for MSSA blood cultures with Enterobacter concern for possible contamination. Patient is currently covered with Cefepime 2 gm every 12 hours. Repeat blood cultures have been negative. The patient does have multiple antibiotic allergies that will limit any oral option. He will and continue with Cefepime 2 g q.12 for 2 weeks along with local wound care with Santyl and close outpatient followup. Once antibiotic arranged, he will be able to go home. Overall . Continue supportive care. MMODL / IJN: [id number] /
[2018-05-13] MEDS: CEFEPIME 2 GM in SODIUM CHLORIDE 0.9% 50 ML IVPB SCH (07:21)
[2018-05-13] MEDS: PANTOPRAZOLE 40 MG TABLET PO SCH (07:51)
[2018-05-13] MEDS: COLLAGENASE 250 UNIT/GM OINTMENT 30 GM TUBE TOPICAL SCH (07:52)
[2018-05-13] MEDS: THIAMINE 100 MG TAB PO SCH ×2 (11:18→16:38)
[2018-05-13] MEDS ORDERED: VANCOMYCIN IV PER PHARMACY 1 EACH MISC MISCELLANE PRN (17:16)
[2018-05-13] MEDS ORDERED: VANCOMYCIN 1,500 MG in SODIUM CHLORIDE 0.9% 250 ML IVPB ONE (18:00)
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
[2018-05-13] MEDS: HYDROmorphone 1 MG/ML 1 ML SYRINGE IVP PRN (22:01)
[2018-05-13] MEDS: MELATONIN 3 MG TABLET PO SCH (23:12)
--- NOTE | 2018-05-13 23:59 | PN ---
PROGRESS NOTE DATE OF SERVICE: 05/13/2018. REASON FOR FOLLOWUP: Left leg wound with secondary cellulitis with a positive blood culture. INTERVAL HISTORY: The patient is currently afebrile. The patient did develop extensive rash last night. The patient subsequently has been put on hold. The patient denies having any shortness of breath or any tongue swelling or any mucus lesion. Denies having any abdominal pain. Pain to the left leg. No worsening compared to yesterday. with no drainage. REVIEW OF SYSTEMS: Positive points have been mentioned in the HPI. The rest of the systems have been negative. Past medical and surgical history: No change. MEDICATION: Reviewed. PHYSICAL EXAMINATION: Blood pressure 134/75 with a pulse of 90, temperature 98.3. He is 96% on room air. General description is a middle-aged male lying in bed in no distress. HEENT: Shows no pallor or scleral icterus. Oral mucosa membranes dry. LUNGS: Unlabored breathing. Clear to auscultation. Heart S1, S2. Regular rate and rhythm. ABDOMEN: Soft. No tenderness. EXTREMITIES: No edema of the feet. Examination of the left leg wound base with some slough tissue, though overall decreased, surrounding swelling has slightly decreased. No foul smelling drainage. Skin examination generalized maculopapular rash and no blister formation. NEUROLOGIC: The patient is awake, alert, oriented times three. Mood and affect normal. LABS: Hemoglobin 15.2, white count 9.6, BUN of 10, creatinine 0.59. Blood culture repeat has been negative. DIAGNOSTIC IMPRESSION AND PLAN: 1. Patient with left leg chronic wound with secondary cellulitis with no evidence of any osteomyelitis on recent x-ray as well as bone scan. The patient's has been normal and the sis not significantly elevated. All osteomyelitis. Patient did have a local wound infection in this patient who did have multiple antibiotic allergies. Currently, did not have any oral option available. The patient developing rash cefepime will be discontinued or cephalosporin allergy documented and the patient was started on vancomycin pharmacy to dose target of 15. He will get a PICC line for continuation of IV vancomycin for the next 2 weeks. Local wound care with Santyl and close outpatient followup. 2. The patient with positive blood culture with Citrobacter of the species. Possible contamination. Repeat blood culture has been negative. All his questions answered. MMODL / IJN: [id number] /
[2018-05-14] MEDS: HYDROmorphone 1 MG/ML 1 ML SYRINGE IVP PRN ×5 (01:12→13:06)
[2018-05-14] MEDS: LORazepam 1 MG TAB PO PRN ×2 (01:12→09:09)
[2018-05-14] MEDS: VANCOMYCIN 1,250 MG in SODIUM CHLORIDE 0.9% 250 ML IVPB SCH ×2 (01:13→07:31)
[2018-05-14 06:02] VITALS: BP 162/87; PULSE 65; RESP 20; TEMP 97.7
[2018-05-14] MEDS: HEPARIN SODIUM,PORCINE 5,000 UNIT/ML 1 ML VIAL SQ SCH (07:14)
[2018-05-14 07:59] LABS: Anion Gap 7 mmol/L; Blood Urea Nitrogen 15 mg/dL (9-20); Calcium 9.6 mg/dL (8.4-10.2); Carbon Dioxide 27 mmol/L (22-30); Chloride 105 mmol/L (98-107); Glucose 94 mg/dL (74-99); Sodium 139 mmol/L (137-145)
[2018-05-14] MEDS: PANTOPRAZOLE 40 MG TABLET PO SCH (08:08)
[2018-05-14] MEDS: COLLAGENASE 250 UNIT/GM OINTMENT 30 GM TUBE TOPICAL SCH (09:10)
[2018-05-14] MEDS ORDERED: HALOPERIDOL LACTATE 5 MG/ML 1 ML VIAL IVP PRN (11:49)
[2018-05-14] MEDS ORDERED: HALOPERIDOL LACTATE 5 MG/ML 1 ML VIAL IM PRN (11:54)
[2018-05-14] MEDS: THIAMINE 100 MG TAB PO SCH (12:17)
[2018-05-14 13:19] VITALS: BMI 22.4
--- NOTE | 2018-05-14 14:06 | PN ---
PROGRESS NOTE DATE OF SERVICE: 05/14/2018 REASON FOR FOLLOWUP: Left leg infected wound. INTERVAL HISTORY: The patient is currently afebrile. The patient apparently has been getting more restless last night and he was refusing to sign consent for PICC line placement. Patient wants to know exactly which alf he is going to go before he will sign the PICC line. He does not want to go to any of the nursing homes in the [place] area. Denies having any chest pain or cough. No abdominal pain. The patient seemed to have a fit on this and would not calm down. PHYSICAL EXAMINATION: Blood pressure 152/87 with a pulse of 55, temperature 97.7. He is 97% on room air. General description is a middle-aged male, up in the chair in no distress. Left leg currently with no dressing applied. The wound did have some soft tissue surrounding redness improved, no drainage. LABS: White count 9.6, creatinine 0.60. DIAGNOSTIC IMPRESSION AND PLAN: Patient with chronic nonhealing wound to the left leg. Culture positive for MSSA and culture is suspicious. Patient did have multiple antibiotic allergies and currently covered with vancomycin, which he will need for another 2 weeks with a maximum. Unfortunately, the patient has been refusing his care and has been aggressive with the nursing staff and would not even listen to me. Overall prognosis remains to be guarded. Local care to continue with [facility]. Continue supportive care. NOAHL / SAULN: [id number] /
[2018-05-14] MEDS ORDERED: LORazepam 2 MG/ML INJ IV PRN (14:10)
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
--- NOTE | 2018-05-14 14:28 | P.PN ---
Subjective Progress Note Date: 05/14/18 Principal diagnosis: Left foot infection Patient was seen and examined. No acute events overnight. Sitter at bedside. Reports from RN, patient is very paranoid, fearful of items being stolen. Also refusing IV antibiotics. Also refusing PICC line. States that he "doesn't want to get shipped off to [place]". Patient is requesting a local longterm , [facility] or [facility]. He complains of pain in the left lower extremity. Given Haldol intramuscularly. Objective - Vital Signs Vital signs: Vital Signs Temp 97.7 F 05/14/18 06:01 Pulse 65 05/14/18 06:01 Resp 20 05/14/18 08:00 BP 162/87 05/14/18 06:01 Pulse Ox 97 05/14/18 06:01 Intake & Output 05/13/18 05/14/18 05/14/18 18:59 06:59 18:59 Weight 74.843 kg Other: Voiding Method Toilet Toilet # Voids 3 7 # Bowel Movements 1 - Exam General: [non toxic], [paranoid], [appears at stated age] Derm: [warm], [dry] Head: [atraumatic], [normocephalic], [symmetric] Eyes: [EOMI], [no lid lag], [anicteric sclera] Mouth: [no lip lesion], [mucus membranes moist] Cardiovascular: [S1S2 reg], [no murmur] Lungs: [CTA bilateral], [no rhonchi, no rales] , [no accessory muscle use] Abdominal: [soft], [ nontender to palpation], [no guarding], [no appreciable organomegaly] Ext: [no gross muscle atrophy], [no edema], [left lower extremity deformity with draining ulcer, dressing and place clean dry and intact] Neuro: [no focal neuro deficits] Psych: [Alert], [oriented], [appropriate affect] - Labs CBC & Chem 7: 05/12/18 10:21 05/14/18 07:23 Labs: Abnormal Lab Results - Last 24 Hours (Table) 05/14/18 Range/Units 07:23 Creatinine 0.60 L (0.66-1.25) mg/dL Microbiology - Last 24 Hours (Table) 05/09/18 23:53 Blood Culture - Preliminary Blood No Growth after 96 hours Assessment and Plan Assessment: Assessment and Plan 1. Left lower extremity cellulitis with chronic draining wound 2. Gram-negative bacteremia 3. Paranoia 4. Anxiety and alcohol abuse 5. Macrocytosis 6. DVT and GI prophylaxis 1. Patient had a T-max of 100.1F on May 07, afebrile since with no leukocytosis. X-ray of the left lower extremity shows no signs of osteomyelitis. Infectious disease consulted and recommended bone scan. Bone scan shows increased uptake, likely stress related rather than osteomyelitis. Initially started on vancomycin, changed to aztreonam and cefepime as per ID recommendations, switched back to vancomycin due to rash ALLERGY from cefepime. Wound culture positive for staph aureus and alcaligen faecalis. Local wound care. Pain management with Dilaudid 1 mg IV every 3 hours. Obtain PICC line and continue IV vancomycin if patient agreeable. Will follow ID recommendations. 2. Blood cultures initially positive for acinetobacter lwoffi and micrococcus species. Started on IV vancomycin as per ID recommendations. Repeat blood cultures negative at 96 hours. 3. We will reconsult psychiatry to determine decision making capacity. Possibility of patient leaving AMA. 4. Ativan as needed for anxiety or withdrawal. Continue thiamine by mouth. 5. Likely secondary to alcohol abuse. 6. Heparin for DVT prophylaxis, Protonix for GI prophylaxis. Patient is refusing PICC line, IV antibiotics. I will reconsult psychiatry regarding his decision making capacity. Possible risk of patient leaving AMA.
[2018-05-14] MEDS ORDERED: VANCOMYCIN TROUGH DUE 1 EACH MISC MISCELLANE ONE (23:00)
[2018-05-15] MEDS ORDERED: SERTRALINE 25 MG TAB PO SCH (09:00)
== END 2018-05-14 14:50 | disposition left against medical advice (07) | DRG 603 ==
LOC: EC 20:12 → 4MS4W 23:32
PROVIDERS: ADMIT Internal Medicine; ATTEND Internal Medicine
DX: L03.116 Cellulitis of left lower limb (principal); F11.20 Opioid dependence, uncomplicated; V00-Y99 External causes of morbidity; D75.89 Other specified diseases of blood and blood-forming organs; F10.10 Alcohol abuse, uncomplicated; F17.210 Nicotine dependence, cigarettes, uncomplicated; F22 Delusional disorders; F32.9 Major depressive disorder, single episode, unspecified; F43.10 Post-traumatic stress disorder, unspecified; I10 Essential (primary) hypertension; I25.2 Old myocardial infarction; J44.9 Chronic obstructive pulmonary disease, unspecified; Z86.14 Personal history of Methicillin resistant Staphylococcus aureus infection; Z82.49 Family history of ischemic heart disease and other diseases of the circulatory system; Z82.5 Family history of asthma and other chronic lower respiratory diseases; Z87.01 Personal history of pneumonia (recurrent); Z88.0 Allergy status to penicillin; Z88.1 Allergy status to other antibiotic agents; Z91.19 Patient's noncompliance with other medical treatment and regimen; B96.89 Other specified bacterial agents as the cause of diseases classified elsewhere; Z87.820 Personal history of traumatic brain injury; Z60.2 Problems related to living alone; Z88.6 Allergy status to analgesic agent; Z88.5 Allergy status to narcotic agent; Z88.2 Allergy status to sulfonamides; M19.90 Unspecified osteoarthritis, unspecified site; Z83.79 Family history of other diseases of the digestive system; R29.6 Repeated falls; Z91.81 History of falling; S82.202G Unspecified fracture of shaft of left tibia, subsequent encounter for closed fracture with delayed healing
CPT/HCPCS: 36415; 76705; 78315; 80048; 80053; 80202; 80320; 83605; 85025; 85027; 85652; 86140; 87040; 87070; 87077; 87186; 87205; 96361; 96374; 96375; 96376; 99285

== ENCOUNTER 2019-01-24 09:23 | Inpatient (IN) | payer MEDICARE, OTHER ==
[2019-01-24] MEDS ORDERED: VANCOMYCIN IV PER PHARMACY 1 EACH MISC MISCELLANE PRN (10:18)
[2019-01-24] MEDS ORDERED: PIPERACILLIN-TAZOBACTAM 3.375 GM in SODIUM CHLORIDE 0.9% 100 ML IVPB STA (10:18)
[2019-01-24] MEDS ORDERED: VANCOMYCIN 1,750 MG in SODIUM CHLORIDE 0.9% 500 ML 500 ML IVPB STA (10:39)
[2019-01-24] MEDS ORDERED: LORazepam 2 MG/ML INJ IV STA (11:06)
[2019-01-24] MEDS ORDERED: KETOROLAC 30 MG/ML 1 ML VIAL IVP STA (11:07)
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
[2019-01-24 11:49] LABS: Basophils # (A) 0.1 k/uL (0-0.2); Basophils % (A) 1 %; Eosinophils # (A) 0.3 k/uL (0-0.7); Eosinophils % (A) 3 %; HCT 51.4 % (39.0-53.0); HGB 17.3 gm/dL (13.0-17.5); Lymphocytes % (A) 10 %; MCH 34.6 pg (25.0-35.0); MCHC 33.6 g/dL (31.0-37.0); Macrocytosis Slight; Mean Platelet Volume 6.6; Monocytes # (A) 0.5 k/uL (0-1.0); Monocytes % (A) 5 %; Neutrophils # (A) 8.2 k/uL (1.3-7.7); Neutrophils % (A) 81 %; Platelet Count 325 k/uL (150-450); RBC 4.99 m/uL (4.30-5.90); WBC 10.2 k/uL (3.8-10.6)
--- NOTE | 2019-01-24 12:12 | XR ---
EXAMINATION TYPE: XR tibia fibula LT DATE OF EXAM: 01/24/2019 COMPARISON: 05/07/2018 HISTORY: Wound mid tibia TECHNIQUE: Two views are submitted. FINDINGS: Chronic appearing mixed lucent and sclerotic defects suggestive of remote trauma with periosteal reac tion involving the mid diaphysis of the tibia. Chronic trauma to the fibula. There is postsurgical ch paolo involving the epiphysis of the tibia. Diffuse osteopenia and arthropathy noted. Diffuse cyst sof t tissue swelling with probable soft tissue defect anteriorly. No overtly destructive changes. Surgic al staple overlying the mid diaphysis of the tibia IMPRESSION: 1. Remote surgical and traumatic change with soft tissue edema and possible ulceration correlate for cellulitis. There is a surgical staple remains overlying the mid tibia which should be correlated wit h the surgical report to exclude foreign body.
[2019-01-24 12:38] LABS: Erythrocyte Sedimentation Rate 8 mm/hr (0-15)
[2019-01-24 13:01] LABS: ALT 14 U/L (21-72); AST 32 U/L (17-59); African American GFR (CKD) >90 (>60 ml/min/1.73 sqM); Albumin 3.4 g/dL (3.5-5.0); Alkaline Phosphatase 117 U/L (38-126); Anion Gap 6 mmol/L; Blood Urea Nitrogen 8 mg/dL (9-20); C Reactive Protein <5.0 mg/L (<10.0); Calcium 9.2 mg/dL (8.4-10.2); Carbon Dioxide 24 mmol/L (22-30); Chloride 106 mmol/L (98-107); Glucose 95 mg/dL (74-99); Sodium 136 mmol/L (137-145)
[2019-01-24] MEDS ORDERED: NALOXONE 0.4 MG/ML 1 ML VIAL IV PRN (13:09)
[2019-01-24] MEDS ORDERED: ACETAMINOPHEN TAB 325 MG TAB PO PRN (13:09)
[2019-01-24] MEDS ORDERED: IBUPROFEN 400 MG TAB PO PRN (13:09)
[2019-01-24] MEDS ORDERED: LORazepam 0.5 MG TAB PO PRN (13:09)
[2019-01-24] MEDS ORDERED: KETOROLAC 30 MG/ML 1 ML VIAL IVP PRN (13:09)
[2019-01-24] MEDS ORDERED: ONDANSETRON 4 MG/2 ML VIAL IVP PRN (13:09)
[2019-01-24] MEDS: MORPHINE SULFATE 4 MG/ML SYRINGE IV PRN ×3 (14:41→23:27)
[2019-01-24] MEDS ORDERED: MORPHINE SULFATE 2 MG/ML SYRINGE IV PRN (15:44)
[2019-01-24] MEDS: SODIUM CHLORIDE 0.9% 1,000 ML IV SCH (16:00)
[2019-01-24] MEDS ORDERED: LORazepam 2 MG/ML INJ IV PRN ×2 (16:39)
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
[2019-01-24] MEDS: THIAMINE 100 MG TAB PO SCH (17:26)
[2019-01-24] MEDS: LORazepam 2 MG/ML INJ IV PRN ×2 (17:26→21:33)
[2019-01-24] MEDS: clonazePAM 1 MG TAB PO SCH ×2 (17:26→23:27)
[2019-01-24] MEDS: NICOTINE 14MG/24HR PATCH TRANSDERM SCH (18:21)
[2019-01-24] MEDS: PIPERACILLIN-TAZOBACTAM 3.375 GM in SODIUM CHLORIDE 0.9% 100 ML IVPB SCH (19:23)
[2019-01-24] MEDS: VANCOMYCIN 1,500 MG in SODIUM CHLORIDE 0.9% 250 ML IVPB SCH (23:29)
[2019-01-25] MEDS: LORazepam 2 MG/ML INJ IV PRN ×2 (01:53→06:08)
[2019-01-25] MEDS: PIPERACILLIN-TAZOBACTAM 3.375 GM in SODIUM CHLORIDE 0.9% 100 ML IVPB SCH ×3 (03:13→20:16)
[2019-01-25] MEDS: MORPHINE SULFATE 4 MG/ML SYRINGE IV PRN ×5 (03:37→20:47)
[2019-01-25] MEDS: VANCOMYCIN 1,500 MG in SODIUM CHLORIDE 0.9% 250 ML IVPB SCH ×3 (05:57→22:09)
[2019-01-25 07:14] LABS: Glucose,Whole Blood 113 mg/dL (75-99)
[2019-01-25] MEDS: NICOTINE 14MG/24HR PATCH TRANSDERM SCH (07:59)
[2019-01-25] MEDS: clonazePAM 1 MG TAB PO SCH ×3 (07:59→20:47)
[2019-01-25] MEDS: MULTIVITAMINS, THERA 1 EACH TAB PO SCH (07:59)
[2019-01-25] MEDS: PANTOPRAZOLE 40 MG/10 ML VIAL IV SCH ×2 (07:59→08:04)
[2019-01-25] MEDS: THIAMINE 100 MG TAB PO SCH ×2 (07:59→16:31)
[2019-01-25 10:48] VITALS: BMI 23.7
[2019-01-25 11:19] LABS: Basophils # (A) 0.1 k/uL (0-0.2); Basophils % (A) 1 %; Eosinophils # (A) 0.5 k/uL (0-0.7); Eosinophils % (A) 7 %; HCT 52.5 % (39.0-53.0); HGB 16.6 gm/dL (13.0-17.5); Lymphocytes # (A) 0.7 k/uL (1.0-4.8); Lymphocytes % (A) 9 %; MCH 33.9 pg (25.0-35.0); MCHC 31.5 g/dL (31.0-37.0); MCV 107.7 fL (80.0-100.0); Macrocytosis Moderate; Mean Platelet Volume 7.1; Monocytes # (A) 0.3 k/uL (0-1.0); Monocytes % (A) 4 %; Neutrophils % (A) 77 %; Platelet Count 289 k/uL (150-450); RBC 4.88 m/uL (4.30-5.90); RDW 12.2 % (11.5-15.5); WBC 7.7 k/uL (3.8-10.6)
[2019-01-25 11:22] LABS: African American GFR (CKD) >90 (>60 ml/min/1.73 sqM); Anion Gap 8 mmol/L; Blood Urea Nitrogen 6 mg/dL (9-20); Calcium 9.3 mg/dL (8.4-10.2); Carbon Dioxide 24 mmol/L (22-30); Chloride 107 mmol/L (98-107); Glucose 75 mg/dL (74-99); Potassium 4.1 mmol/L (3.5-5.1); Sodium 139 mmol/L (137-145)
[2019-01-25] MEDS: SODIUM CHLORIDE 0.9% 1,000 ML IV SCH (12:53)
--- NOTE | 2019-01-25 13:32 | P.PN ---
Subjective Progress Note Date: 01/25/19 Principal diagnosis: Left lower extremity wound Patient was seen and examined. No acute events overnight. Patient reports condition is unchanged since yesterday. Per nursing reports, patient has been accusatory of taking his medications. Patient denies any chest pain, shortness of breath or palpitations. No nausea or vomiting. No fever or chills. Objective - Vital Signs Vital signs: Vital Signs Temp 97.8 F 01/25/19 05:22 Pulse 59 L 01/25/19 05:22 Resp 16 01/25/19 05:22 BP 169/90 01/25/19 05:22 Pulse Ox 97 01/25/19 05:22 Intake & Output 01/24/19 01/25/19 01/25/19 18:59 06:59 18:59 Weight 79.379 kg 79.379 kg Other: # Voids 2 - Exam General: [non toxic], [no distress], [appears at stated age] Derm: [warm], [dry] Head: [atraumatic], [normocephalic], [symmetric] Eyes: [EOMI], [no lid lag], [anicteric sclera] Mouth: [no lip lesion], [mucus membranes moist] Cardiovascular: [S1S2 reg], [no murmur], [positive DP pulse bilateral], Lungs: [CTA bilateral], [no rhonchi, no rales] , [no accessory muscle use] Abdominal: [soft], [ nontender to palpation], [no guarding], [no appreciable organomegaly] Ext: [no gross muscle atrophy], [no edema], [no contractures], [chronic skin changes in the left lower extremity with open anterior 5 cm x 5 cm ulceration with purulent discharge and surrounding erythema] Neuro: [no focal neuro deficits] Psych: [Alert], [oriented], [appears anxious] - Labs CBC & Chem 7: 01/25/19 10:38 01/25/19 10:38 Labs: Abnormal Lab Results - Last 24 Hours (Table) 01/25/19 01/25/19 01/25/19 Range/Units 07:12 10:38 10:38 MCV 107.7 H (80.0-100.0) fL Lymphocytes # 0.7 L (1.0-4.8) k/uL BUN 6 L (9-20) mg/dL Creatinine 0.53 L (0.66-1.25) mg/dL POC Glucose (mg/dL) 113 H (75-99) mg/dL Microbiology - Last 24 Hours (Table) 01/24/19 11:20 Gram Stain - Preliminary Leg - Left Wound Culture - Preliminary Gram Neg Bacilli Assessment and Plan Assessment: Assessment and Plan 1. Left lower extremity cellulitis with chronic draining wound 2. Anxiety 3. Alcohol abuse 4. Macrocytosis 1. Patient afebrile with no leukocytosis. X-ray of the left lower extremity shows no signs of osteomyelitis. CRP within normal limits. Plans: Start vancomycin IV and Zosyn. Tylenol, Toradol or morphine as needed for severe pain. Follow blood and wound cultures. Follow ID consultation. Possible bone scan? 2. Plans: Klonopin as needed for anxiety. 3. Plans: CIWA protocol. Ativan as needed for withdrawal. Start thiamine. 4. Likely due to alcohol use. Patient denies withdrawal symptoms. B12 and folate within normal limits in February 2017. Plans: Repeat CBC in the morning. [Patient will need placement for wound care and possible IV antibiotics. We are pending ID consultation.]
[2019-01-25] MEDS ORDERED: VANCOMYCIN TROUGH DUE 1 EACH MISC MISCELLANE ONE (21:00)
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
[2019-01-26] MEDS: PIPERACILLIN-TAZOBACTAM 3.375 GM in SODIUM CHLORIDE 0.9% 100 ML IVPB SCH ×3 (03:32→20:07)
[2019-01-26] MEDS: MORPHINE SULFATE 4 MG/ML SYRINGE IV PRN ×5 (04:40→21:21)
[2019-01-26] MEDS: NICOTINE 14MG/24HR PATCH TRANSDERM SCH (07:34)
[2019-01-26] MEDS: MULTIVITAMINS, THERA 1 EACH TAB PO SCH (07:34)
[2019-01-26] MEDS: PANTOPRAZOLE 40 MG TABLET PO SCH (07:34)
[2019-01-26] MEDS: THIAMINE 100 MG TAB PO SCH ×2 (07:34→16:44)
[2019-01-26] MEDS: clonazePAM 1 MG TAB PO SCH ×3 (08:29→21:34)
[2019-01-26] MEDS: SODIUM CHLORIDE 0.9% 1,000 ML IV SCH (13:37)
--- NOTE | 2019-01-26 18:06 | P.PN ---
Subjective Progress Note Date: 01/26/19 Principal diagnosis: Left lower extremity wound Patient was seen and examined. No acute events overnight. Patient reports condition is unchanged since yesterday. Patient continues to complain of excruciating pain in his left lower extremity, same as admission, 01/17 in severity. Patient denies any chest pain, shortness of breath or palpitations. No nausea or vomiting. No fever or chills. Objective - Vital Signs Vital signs: Vital Signs Temp 97.5 F L 01/26/19 16:40 Pulse 61 01/26/19 16:40 Resp 16 01/26/19 16:40 BP 141/89 01/26/19 16:40 Pulse Ox 96 01/26/19 16:40 Intake & Output 01/25/19 01/26/19 01/26/19 18:59 06:59 18:59 Intake Total 900 100 Balance 900 100 Weight 79.379 kg Intake: Oral 900 100 Other: Voiding Method Toilet # Voids 2 1 1 # Bowel Movements 0 - Exam General: [non toxic], [no distress], [appears at stated age] Derm: [warm], [dry] Head: [atraumatic], [normocephalic], [symmetric] Eyes: [EOMI], [no lid lag], [anicteric sclera] Mouth: [no lip lesion], [mucus membranes moist] Cardiovascular: [S1S2 reg], [no murmur], [positive DP pulse bilateral], Lungs: [CTA bilateral], [no rhonchi, no rales] , [no accessory muscle use] Abdominal: [soft], [ nontender to palpation], [no guarding], [no appreciable organomegaly] Ext: [no gross muscle atrophy], [no edema], [no contractures], [chronic skin changes in the left lower extremity with open anterior 5 cm x 5 cm ulceration with purulent discharge and surrounding erythema] Neuro: [no focal neuro deficits] Psych: [Alert], [oriented], [appears anxious] - Labs CBC & Chem 7: 01/25/19 10:38 01/25/19 10:38 Labs: Microbiology - Last 24 Hours (Table) 01/24/19 11:03 Blood Culture - Preliminary Blood No Growth after 48 hours 01/24/19 11:20 Gram Stain - Preliminary Leg - Left Wound Culture - Preliminary Pseudomonas aeruginosa Proteus mirabilis Presumptive Staph aureus Assessment and Plan Assessment: Assessment and Plan 1. Left lower extremity cellulitis with chronic draining wound 2. Anxiety 3. Alcohol abuse 4. Macrocytosis 1. Patient afebrile with no leukocytosis. X-ray of the left lower extremity shows no signs of osteomyelitis. CRP within normal limits. Wound culture shows Pseudomonas, Proteus and S. aureus. Plans: Continue vancomycin IV for concerns of MRSA and continue Zosyn. Tylenol, Toradol or morphine as needed for severe pain. Added Cymbalta and [place] for better pain control.. Follow blood and wound cultures. Follow ID consultation. 2. Plans: Klonopin as needed for anxiety. 3. Plans: CIWA protocol. Ativan as needed for withdrawal. Start thiamine. 4. Likely due to alcohol use. Patient denies withdrawal symptoms. B12 and folate within normal limits in February 2017. Plans: Repeat CBC in the morning. [Patient will need placement for wound care and possible IV antibiotics. Cultures pending. SW consulted for placement. PT and OT recommendations pending.]
[2019-01-26] MEDS: VANCOMYCIN 1,250 MG in SODIUM CHLORIDE 0.9% 250 ML IVPB SCH (18:43)
[2019-01-26] MEDS: DULoxetine HCL 30 MG CAPSULE.DR PO SCH (21:34)
[2019-01-26] MEDS: HYDROcodone/APAP 7.5-325MG 1 EACH TAB PO PRN (22:36)
[2019-01-27] MEDS: VANCOMYCIN 1,250 MG in SODIUM CHLORIDE 0.9% 250 ML IVPB SCH ×2 (01:35→10:46)
[2019-01-27] MEDS: MORPHINE SULFATE 4 MG/ML SYRINGE IV PRN ×6 (01:36→23:51)
[2019-01-27] MEDS: HYDROcodone/APAP 7.5-325MG 1 EACH TAB PO PRN ×4 (04:09→22:34)
[2019-01-27] MEDS: PIPERACILLIN-TAZOBACTAM 3.375 GM in SODIUM CHLORIDE 0.9% 100 ML IVPB SCH ×2 (04:25→23:52)
[2019-01-27] MEDS: PANTOPRAZOLE 40 MG TABLET PO SCH (09:03)
[2019-01-27] MEDS: clonazePAM 1 MG TAB PO SCH ×3 (09:03→21:17)
[2019-01-27] MEDS: DULoxetine HCL 30 MG CAPSULE.DR PO SCH ×2 (09:03→21:17)
[2019-01-27] MEDS: MULTIVITAMINS, THERA 1 EACH TAB PO SCH (09:04)
[2019-01-27] MEDS: THIAMINE 100 MG TAB PO SCH ×2 (09:04→18:08)
[2019-01-27] MEDS: NICOTINE 14MG/24HR PATCH TRANSDERM SCH (09:11)
[2019-01-27 09:45] LABS: African American GFR (CKD) >90 (>60 ml/min/1.73 sqM); Anion Gap 9 mmol/L; Blood Urea Nitrogen 5 mg/dL (9-20); Calcium 9.6 mg/dL (8.4-10.2); Carbon Dioxide 24 mmol/L (22-30); Chloride 105 mmol/L (98-107); Glucose 101 mg/dL (74-99); Potassium 4.4 mmol/L (3.5-5.1); Sodium 138 mmol/L (137-145)
--- NOTE | 2019-01-27 10:30 | P.PN ---
Subjective Progress Note Date: 01/27/19 Principal diagnosis: Left lower extremity wound Patient was seen and examined. No acute events overnight. Patient continues to complain of excruciating pain in his left lower extremity, same as admission, 12/18 in severity, requesting increasing morphine dose. Patient denies any chest pain, shortness of breath or palpitations. No nausea or vomiting. No fever or chills. Patient does endorse a difficulty of taking care of his wounds along with dressing changes at home due to the pain. He reports difficulties taking care of himself, ADL/IADLs due to the wound and the chronic pain in his left lower extremity. Objective - Vital Signs Vital signs: Vital Signs Temp 97.8 F 01/27/19 04:39 Pulse 76 01/27/19 04:39 Resp 20 01/27/19 04:39 BP 132/89 01/27/19 04:39 Pulse Ox 97 01/27/19 04:39 Intake & Output 01/26/19 01/27/19 01/27/19 18:59 06:59 18:59 Intake Total 100 680 480 Balance 100 680 480 Intake: Oral 100 680 480 Other: Voiding Method Toilet # Voids 1 2 - Exam General: [non toxic], [no distress], [appears at stated age] Derm: [warm], [dry] Head: [atraumatic], [normocephalic], [symmetric] Eyes: [EOMI], [no lid lag], [anicteric sclera] Mouth: [no lip lesion], [mucus membranes moist] Cardiovascular: [S1S2 reg], [no murmur], [positive DP pulse bilateral], Lungs: [CTA bilateral], [no rhonchi, no rales] , [no accessory muscle use] Abdominal: [soft], [ nontender to palpation], [no guarding], [no appreciable organomegaly] Ext: [no gross muscle atrophy], [no edema], [no contractures], [chronic skin changes in the left lower extremity with open anterior 5 cm x 5 cm ulceration with purulent discharge and surrounding erythema] Neuro: [no focal neuro deficits] Psych: [Alert], [oriented], [appears anxious] - Labs CBC & Chem 7: 01/25/19 10:38 01/27/19 08:46 Labs: Abnormal Lab Results - Last 24 Hours (Table) 01/27/19 Range/Units 08:46 BUN 5 L (9-20) mg/dL Creatinine 0.58 L (0.66-1.25) mg/dL Glucose 101 H (74-99) mg/dL Microbiology - Last 24 Hours (Table) 01/24/19 11:20 Gram Stain - Final Leg - Left Wound Culture - Final Pseudomonas aeruginosa Proteus mirabilis Staphylococcus aureus 01/24/19 11:03 Blood Culture - Preliminary Blood No Growth after 48 hours Assessment and Plan Assessment: Assessment and Plan 1. Left lower extremity cellulitis with chronic draining wound 2. Anxiety 3. Alcohol abuse 4. Macrocytosis 1. Patient afebrile with no leukocytosis. X-ray of the left lower extremity shows no signs of osteomyelitis. CRP within normal limits. Wound culture shows Pseudomonas, Proteus and S. aureus. Blood culture negative at 48 hours. Plans: DC vancomycin and Zosyn and start levofloxacin IV. Tylenol, Toradol or morphine as needed for severe pain. Added Cymbalta and [place] for better pain control. Follow blood. Follow ID consultation. 2. Plans: Klonopin as needed for anxiety. 3. Plans: CIWA protocol. Start thiamine. 4. Likely due to alcohol use. Patient denies withdrawal symptoms. B12 and folate within normal limits in February 2017. Plans: Nothing further to do. [Patient is a difficult placement. We will follow social work recommendations on Monday. Patient has culture sensitive to levofloxacin. Will discuss with ID the need for IV antibiotics or if patient can be discharged home with oral antibiotics and wound care. Likely DC in 1-2 days.]
[2019-01-27] MEDS ORDERED: LEVOFLOXACIN 750MG-D5W PMX 750 MG in DEXTROSE/WATER 1 150ML.BAG IVPB SCH (12:00)
[2019-01-27] MEDS: SODIUM CHLORIDE 0.9% 1,000 ML IV SCH (13:55)
[2019-01-27] MEDS ORDERED: diphenhydrAMINE 25 MG CAP PO STA (20:17)
[2019-01-27] MEDS ORDERED: CEFEPIME 2 GM in SODIUM CHLORIDE 0.9% 100 ML IVPB SCH (21:00)
--- NOTE | 2019-01-27 22:48 | PN ---
PROGRESS NOTE DATE OF SERVICE: 01/27/2019. REASON FOR FOLLOWUP: Left leg wound infection. INTERVAL HISTORY: The patient is currently afebrile. Patient has been breathing comfortably. Denies any chest pain or cough. Still complaining of pain to the left leg wound area and inability to take care of himself and complain of feeling weak with multiple falls. The patient has been insisting on getting a PICC line and going to longterm. PHYSICAL EXAMINATION: Blood pressure is 149/89 with a pulse of 74, temperature 98.1. He is 95% on room air. General description is an elderly male lying in bed in no distress. Respiratory system: Unlabored breathing. Clear to auscultation anteriorly. Heart S1, S2. Regular rate and rhythm. Abdomen soft. No tenderness. Left leg wound is currently dressed up, no obvious drainage on the dressing. LABS: Hemoglobin is 13.6, white count 7.6, BUN of 5, creatinine 0.58. DIAGNOSTIC IMPRESSION AND PLAN: Patient with left leg wound with secondary cellulitis possible superficial infection as the patient did not have any fever, elevated white count and CRP all normal. Local wound care to continue with [facility] hopefully to finish therapy with short course of Keflex and Levaquin if the patient gets accepted at the longterm, may consider IV antibiotic. This has been discussed with the admitting team. KRISTAN / EDUARD: [id number] /
[2019-01-28 01:09] VITALS: RESP 18; TEMP 97.4
[2019-01-28] MEDS: MORPHINE SULFATE 4 MG/ML SYRINGE IV PRN ×4 (04:03→15:09)
[2019-01-28] MEDS: HYDROcodone/APAP 7.5-325MG 1 EACH TAB PO PRN ×2 (07:00→12:55)
[2019-01-28] MEDS: MULTIVITAMINS, THERA 1 EACH TAB PO SCH (07:00)
[2019-01-28] MEDS: THIAMINE 100 MG TAB PO SCH ×2 (07:00→15:10)
[2019-01-28] MEDS: clonazePAM 1 MG TAB PO SCH ×2 (07:01→15:10)
[2019-01-28] MEDS: NICOTINE 14MG/24HR PATCH TRANSDERM SCH (07:01)
[2019-01-28] MEDS: PIPERACILLIN-TAZOBACTAM 3.375 GM in SODIUM CHLORIDE 0.9% 100 ML IVPB SCH (07:01)
[2019-01-28] MEDS: DULoxetine HCL 30 MG CAPSULE.DR PO SCH (07:02)
[2019-01-28] MEDS: PANTOPRAZOLE 40 MG TABLET PO SCH (07:02)
[2019-01-28 07:31] VITALS: BP 146/84; PULSE 69
[2019-01-28] MEDS ORDERED: LEVOFLOXACIN 750 MG TAB PO SCH (11:30)
[2019-01-28] MEDS: SODIUM CHLORIDE 0.9% 1,000 ML IV SCH (11:48)
[2019-01-28] MEDS ORDERED: LIDOCAINE 1% INJ 10MG/ML (20 ML MDV) SQ ONE (13:24)
[2019-01-28] MEDS ORDERED: IOPAMIDOL-370 50ML BTL INJ ONE (13:26)
--- NOTE | 2019-01-28 15:25 | IR ---
EXAMINATION TYPE: IR cvc insert >=5 years And left upper extremity venogram DATE OF EXAM: 01/28/2019 COMPARISON: NONE CLINICAL HISTORY: Infection, cellulitis Needs long-term intravenous access for antibiotics. PROCEDURE: After informed consent, the skin overlying the left basilic vein was localized with ultrasound and no jacob to be compressible and patent. An ultrasound image was obtained and submitted on the patient's c casas. The overlying skin was prepped and draped and Lidocaine was used for local anesthesia. A skin dionicio was made with a scalpel. Access was gained to the vein under ultrasound guidance with a 21 gau ge needle and a 0.018 inch wire was advanced but could not be advanced centrally. General hand inject ion of contrast material performed through the 3 Syriac catheter. Basilar findings attention directed to the left brachial vein, sheath was pulled and hemostasis achieved. The left brachial vein was not ed to be compressible and patent by ultrasound and ultrasound image was obtained. Using similar Seldi nger technique access was gained to the vein with a 21-gauge needle and a 0.018 inch wire was advance d. Access site was dilated with Peel-Away sheath and catheter tailored to the appropriate length and advanced such that the distal tip is at the cavoatrial junction. Spot image was obtained verifying p lacement. Catheter was fixed to the skin and a sterile dressing was placed following hemostasis. Ca theter was aspirated and flushed with saline. Patient was discharged in stable condition without com plication. Maximal barrier technique is utilized. Ultrasound image is documented on the chart. Ultra sound used with sterile technique. Fluoro time and fluoroscopic images submitted to document procedure: 3.8 minutes fluoroscopy time, 11 1 intraoperative images. There are findings: Brachial and basilic vein is noted to be patent. IMPRESSION: STATUS POST ULTRASOUND AND FLUOROSCOPIC GUIDED PICC LINE PLACEMENT, READY FOR USE. THIS PROCEDURE WAS PERFORMED BY THE UNDERSIGNED.
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
--- NOTE | 2019-01-28 22:01 | PN ---
PROGRESS NOTE DATE OF SERVICE: 01/28/2019 REASON FOR FOLLOWUP: Left leg wound infection. INTERVAL HISTORY: The patient was seen on rounds earlier this afternoon. The patient has been afebrile, has been breathing comfortably. No chest pain or cough. No abdominal pain or worsening pain to the left leg area. PHYSICAL EXAMINATION: Blood pressure is 146/84 with a pulse of 69, temperature 97.4. He is 95% on room air. General description is a middle-aged male lying in bed in no distress. RESPIRATORY SYSTEM: Unlabored breathing. Clear to auscultation anteriorly. HEART: S1, S2. Regular rate and rhythm. ABDOMEN: Soft. No tenderness. Left leg wound is currently dressed up. No obvious drainage on the dressing. LABS: Sed rate of 15. DIAGNOSTIC IMPRESSION AND PLAN: Patient with left leg chronic wound with secondary cellulitis, culture positive for pseudomonas, proteus and methicillin-susceptible Staphylococcus aeruginosa. Antibiotic has been switched to cefazolin and Levaquin for another 10 days to 2 weeks to finish course of therapy. Local wound care with [place]. Plan of care was discussed in detail with the discharging physician. MMYUDYL / SAULN: [id number] /
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
== END 2019-01-28 17:26 | DRG 920 ==
LOC: EC 09:23 → 4MS4W 12:56
PROVIDERS: ADMIT Family Medicine; ATTEND Family Medicine
PROC: B51N1ZZ Fluoroscopy of Left Upper Extremity Veins using Low Osmolar Contrast (ICD-10-PCS; 2019-01-28)
PROC: 02HV33Z Insertion of Infusion Device into Superior Vena Cava, Percutaneous Approach (ICD-10-PCS; principal; 2019-01-28 12:40)
DX: T86.822 Skin graft (allograft) (autograft) infection (principal); L03.116 Cellulitis of left lower limb; Z94.89 Other transplanted organ and tissue status; B96.5 Pseudomonas (aeruginosa) (mallei) (pseudomallei) as the cause of diseases classified elsewhere; S81.802S Unspecified open wound, left lower leg, sequela; B96.4 Proteus (mirabilis) (morganii) as the cause of diseases classified elsewhere; G89.29 Other chronic pain; Z94.5 Skin transplant status; F41.1 Generalized anxiety disorder; F32.9 Major depressive disorder, single episode, unspecified; F43.10 Post-traumatic stress disorder, unspecified; D75.89 Other specified diseases of blood and blood-forming organs; K46.9 Unspecified abdominal hernia without obstruction or gangrene; F10.10 Alcohol abuse, uncomplicated; J44.9 Chronic obstructive pulmonary disease, unspecified; I10 Essential (primary) hypertension; I25.10 Atherosclerotic heart disease of native coronary artery without angina pectoris; I25.2 Old myocardial infarction; M19.90 Unspecified osteoarthritis, unspecified site; R29.6 Repeated falls; F17.200 Nicotine dependence, unspecified, uncomplicated; Z71.6 Tobacco abuse counseling; Z91.19 Patient's noncompliance with other medical treatment and regimen; Z87.01 Personal history of pneumonia (recurrent); Z87.81 Personal history of (healed) traumatic fracture; Z87.39 Personal history of other diseases of the musculoskeletal system and connective tissue; Z86.14 Personal history of Methicillin resistant Staphylococcus aureus infection; Z88.6 Allergy status to analgesic agent; Z88.1 Allergy status to other antibiotic agents; Z88.0 Allergy status to penicillin; Z88.2 Allergy status to sulfonamides; V00-Y99 External causes of morbidity; Z82.49 Family history of ischemic heart disease and other diseases of the circulatory system; Z82.5 Family history of asthma and other chronic lower respiratory diseases; Z83.79 Family history of other diseases of the digestive system; Y83.2 Surgical operation with anastomosis, bypass or graft as the cause of abnormal reaction of the patient, or of later complication, without mention of misadventure at the time of the procedure
CPT/HCPCS: 36415; 36573; 80048; 80053; 80202; 83605; 85025; 85652; 86140; 87040; 87070; 87077; 87186; 87205; 96365; 96366; 96368; 96375; 99285

== ENCOUNTER 2019-04-30 13:22 | Inpatient (IN) | payer MEDICARE, OTHER ==
[2019-04-30] MEDS ORDERED: CEFEPIME 2 GM in SODIUM CHLORIDE 0.9% 100 ML IVPB STA (13:37)
[2019-04-30] MEDS ORDERED: VANCOMYCIN IV PER PHARMACY 1 EACH MISC MISCELLANE PRN (13:37)
[2019-04-30] MEDS ORDERED: VANCOMYCIN 1,500 MG in SODIUM CHLORIDE 0.9% 250 ML IVPB STA (13:41)
[2019-04-30] MEDS ORDERED: NALOXONE 0.4 MG/ML 1 ML VIAL IV PRN (14:48)
[2019-04-30] MEDS ORDERED: ACETAMINOPHEN TAB 325 MG TAB PO PRN (14:48)
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
[2019-04-30] MEDS ORDERED: MORPHINE SULFATE 4 MG/ML SYRINGE IVP STA (15:19)
[2019-04-30 15:37] LABS: Basophils # (A) 0.1 k/uL (0-0.2); Basophils % (A) 1 %; Eosinophils # (A) 0.4 k/uL (0-0.7); Eosinophils % (A) 5 %; Lymphocytes # (A) 1.4 k/uL (1.0-4.8); Lymphocytes % (A) 15 %; MCH 33.9 pg (25.0-35.0); MCHC 34.2 g/dL (31.0-37.0); MCV 99.2 fL (80.0-100.0); Monocytes # (A) 0.4 k/uL (0-1.0); Monocytes % (A) 4 %; Neutrophils # (A) 7.1 k/uL (1.3-7.7); Neutrophils % (A) 74 %; Platelet Count 273 k/uL (150-450); RBC 5.64 m/uL (4.30-5.90); RDW 13.2 % (11.5-15.5); WBC 9.6 k/uL (3.8-10.6)
[2019-04-30 15:38] LABS: HCT 55.9 % (39.0-53.0)
[2019-04-30 15:39] LABS: HGB 19.1 gm/dL (13.0-17.5)
[2019-04-30] MEDS ORDERED: SODIUM CHLORIDE 0.9% 1,000 ML IV ONE (15:41)
--- NOTE | 2019-04-30 15:47 | XR ---
EXAMINATION TYPE: XR tibia fibula LT DATE OF EXAM: 04/30/2019 COMPARISON: NONE HISTORY: Wound anterior tibia TECHNIQUE: Two views are submitted. FINDINGS: Postsurgical changes are seen with heterotopic ossification and marked deformity of the tibia congest yahir of remote trauma involving the tibia and fibula. No acute fracture. Vascular calcifications are n oted. Arthropathy of the knee joint and patellofemoral joint. A staple is seen overlying the soft tis sues adjacent to the tibia adjacent to what appears to be a soft tissue wound. IMPRESSION: 1. Anteriorly at the mid tibial level there appears to be a soft tissue defect correlate for ulcerati on. There is a metallic staple overlying the tibia adjacent to the wound. This could represent a margarita ined foreign body. Correlate clinically.
[2019-04-30 15:49] LABS: ALT 25 U/L (4-49); AST 60 U/L (17-59); African American GFR (CKD) >90 (>60 ml/min/1.73 sqM); Albumin 4.5 g/dL (3.5-5.0); Alkaline Phosphatase 134 U/L (38-126); Anion Gap 13 mmol/L; Blood Urea Nitrogen 3 mg/dL (9-20); Calcium 9.8 mg/dL (8.4-10.2); Carbon Dioxide 24 mmol/L (22-30); Chloride 104 mmol/L (98-107); Glucose 83 mg/dL (74-99); Non-African American GFR(CKD) >90 (>60 ml/min/1.73 sqM); Potassium 4.7 mmol/L (3.5-5.1); Sodium 141 mmol/L (137-145); Total Bilirubin 0.9 mg/dL (0.2-1.3); Total Protein 8.4 g/dL (6.3-8.2)
[2019-04-30 15:50] LABS: INR 1.1 (<1.2); Partial Thromboplastin Time 26.9 sec (22.0-30.0); Prothrombin Time 11.3 sec (9.0-12.0)
[2019-04-30] MEDS: SODIUM CHLORIDE 0.9% 1,000 ML IV SCH ×2 (15:54→15:55)
[2019-04-30] MEDS ORDERED: HYDROmorphone 0.5 MG/0.5 ML SYRINGE IVP PRN (16:52)
[2019-04-30] MEDS: HYDROmorphone 1 MG/ML 1 ML SYRINGE IVP PRN ×2 (17:12→21:02)
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
[2019-04-30] MEDS ORDERED: SODIUM BICARBONATE TAB 650 MG TAB PO PRN (18:15)
[2019-04-30] MEDS ORDERED: NON FORMULARY DRUG (Ensure 1 CAN) PO SCH (18:15)
[2019-04-30] MEDS: HYDROcodone/APAP 10-325MG 1 EACH TAB PO PRN (19:38)
[2019-04-30] MEDS: MULTIVITAMINS, THERA 1 EACH TAB PO SCH (19:38)
[2019-04-30] MEDS: PANTOPRAZOLE 40 MG TABLET PO SCH (19:38)
[2019-04-30] MEDS: NICOTINE 14MG/24HR PATCH TRANSDERM SCH (19:38)
[2019-04-30] MEDS: clonazePAM 1 MG TAB PO PRN (19:39)
[2019-04-30] MEDS: DULoxetine HCL 30 MG CAPSULE.DR PO SCH (19:52)
[2019-04-30] MEDS: VANCOMYCIN 1,500 MG in SODIUM CHLORIDE 0.9% 250 ML IVPB SCH (21:03)
[2019-04-30] MEDS: CEFEPIME 2 GM in SODIUM CHLORIDE 0.9% 100 ML IVPB SCH (23:41)
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
[2019-05-01] MEDS: HYDROmorphone 1 MG/ML 1 ML SYRINGE IVP PRN ×6 (00:50→22:32)
[2019-05-01] MEDS: HYDROcodone/APAP 10-325MG 1 EACH TAB PO PRN ×4 (02:03→20:53)
[2019-05-01] MEDS: clonazePAM 1 MG TAB PO PRN ×3 (02:03→19:14)
[2019-05-01] MEDS: SODIUM CHLORIDE 0.9% 1,000 ML IV SCH ×4 (05:04→23:46)
[2019-05-01] MEDS: VANCOMYCIN 1,500 MG in SODIUM CHLORIDE 0.9% 250 ML IVPB SCH ×2 (05:04→15:01)
[2019-05-01 07:15] LABS: Basophils # (A) 0.1 k/uL (0-0.2); Basophils % (A) 1 %; Eosinophils # (A) 0.4 k/uL (0-0.7); Eosinophils % (A) 4 %; HCT 53.6 % (39.0-53.0); HGB 17.7 gm/dL (13.0-17.5); Lymphocytes # (A) 0.6 k/uL (1.0-4.8); Lymphocytes % (A) 6 %; Monocytes # (A) 0.3 k/uL (0-1.0); Monocytes % (A) 3 %; Neutrophils # (A) 8.4 k/uL (1.3-7.7); Neutrophils % (A) 84 %; Platelet Count 263 k/uL (150-450); RBC 5.36 m/uL (4.30-5.90); RDW 13.2 % (11.5-15.5); WBC 9.9 k/uL (3.8-10.6)
[2019-05-01 07:29] LABS: ALT 19 U/L (4-49); AST 40 U/L (17-59); African American GFR (CKD) >90 (>60 ml/min/1.73 sqM); Albumin 3.8 g/dL (3.5-5.0); Alkaline Phosphatase 106 U/L (38-126); Anion Gap 8 mmol/L; Blood Urea Nitrogen 7 mg/dL (9-20); Calcium 9.5 mg/dL (8.4-10.2); Carbon Dioxide 26 mmol/L (22-30); Chloride 102 mmol/L (98-107); Glucose 99 mg/dL (74-99); Non-African American GFR(CKD) >90 (>60 ml/min/1.73 sqM); Potassium 4.3 mmol/L (3.5-5.1); Sodium 136 mmol/L (137-145); Total Bilirubin 1.6 mg/dL (0.2-1.3); Total Protein 7.5 g/dL (6.3-8.2)
[2019-05-01] MEDS: NICOTINE 14MG/24HR PATCH TRANSDERM SCH (08:24)
[2019-05-01] MEDS: MULTIVITAMINS, THERA 1 EACH TAB PO SCH (08:24)
[2019-05-01] MEDS: CEFEPIME 2 GM in SODIUM CHLORIDE 0.9% 100 ML IVPB SCH ×4 (08:24→23:45)
[2019-05-01] MEDS: PANTOPRAZOLE 40 MG TABLET PO SCH (08:24)
[2019-05-01] MEDS: DULoxetine HCL 30 MG CAPSULE.DR PO SCH ×2 (08:25→20:52)
--- NOTE | 2019-05-01 08:29 | US ---
EXAMINATION TYPE: US venous doppler duplex LE LT DATE OF EXAM: 05/01/2019 7:29 AM COMPARISON: NONE CLINICAL HISTORY: Rule out blood clot. Abnormal physical exam with palpable mass, varicose veins are palpable at calf SIDE PERFORMED: Left TECHNIQUE: The lower extremity deep venous system is examined utilizing real time linear array sonog nancy with graded compression, doppler sonography and color-flow sonography. VESSELS IMAGED: External Iliac Vein (EIV) Common Femoral Vein Deep Femoral Vein Greater Saphenous Vein * Femoral Vein Popliteal Vein Small Saphenous Vein * Proximal Calf Veins (* superficial vessels) Left Leg: Appears negative for DVT, patient has palpable varicose veins in the calf that appears wnl There is normal flow, compressibility, vascular waveforms. Serpiginous areas with color flow on Dop pler at the palpable mass in the catheter correspond to what is likely varicosities IMPRESSION: No evident deep venous arthrosis at or above the left knee. Follow-up as indicated. Palpa ble mass left calf corresponds to varicosities
--- NOTE | 2019-05-01 15:32 | NM ---
EXAMINATION TYPE: NM bone 3 phase DATE OF EXAM: 05/01/2019 COMPARISON: Prior nuclear medicine bone scan 05/09/2018 and plain film 04/30/2019 HISTORY: Left leg wound Triple phase bone scintigraphy was performed following the injection of 23.2 mCi Tc 99m MDP. Immedia te images and 5 hours post injection images acquired. FINDINGS: Findings are similar to prior exam. There is increased blood flow and blood pool activity noted withi n the left leg similar to prior exam. Delayed imaging shows focal uptake in the mid tibia region viry lar to prior. IMPRESSION: Findings may represent chronic osteomyelitis with cellulitis.
[2019-05-01] MEDS: amLODIPine 5 MG TAB PO SCH (20:53)
[2019-05-01] MEDS ORDERED: VANCOMYCIN TROUGH DUE 1 EACH MISC MISCELLANE ONE (21:00)
--- NOTE | 2019-05-01 23:35 | PN ---
PROGRESS NOTE DATE OF SERVICE: 05/01/2019 REASON FOR FOLLOWUP: Left leg wound and cellulitis. INTERVAL HISTORY: The patient is currently afebrile. The patient is breathing comfortably. The patient denies having any chest pain. No shortness of breath or cough. No worsening pain to the left leg area. No diarrhea. On examination, blood pressure is 119/97 with a pulse of 79, temperature 98. He is 93% on room air. General description is a middle-aged male lying in bed in no distress. Respiratory system: Unlabored breathing. Clear to auscultation anteriorly. Heart S1, S2 regular rate and rhythm. Abdomen soft, no tenderness. Left leg is currently dressed. No obvious drainage on the dressing. LABS: Hemoglobin 13.7, white count 9.9. 0.50. The local wound culture showing gram negative bacilli. The bone scan with . DIAGNOSTIC IMPRESSION AND PLAN: Patient with chronic nonhealing wound to the left leg in this patient who did have a history of recurrent cellulitis and osteomyelitis and has been treated with multiple courses of antibiotic admitted to the hospital because of episode of cellulitis and possible . Wound culture with gram-negative cefepime will be continued which the patient has tolerated. Vancomycin will be discontinued. Local care to continue with Medihoney followed by moist dressing. Continue supportive care. MMODL / IJN: [id number] /
--- NOTE | 2019-05-01 23:56 | PN ---
PROGRESS NOTE 63-year-old white male, left lower extremity cellulitis, osteomyelitis with redness, swelling, exudate. Remains on cefepime and vancomycin. Cultures are pending. Bone scan is pending. Hypertension is elevated. We will start him on Norvasc 5 mg b.i.d. Lungs show wheezes x4. Cardiovascular S1-S2. Psych anxious and nervous. ASSESSMENT: 1. Hypertension acceleration. 2. Left lower extremity cellulitis. 3. Osteomyelitis. Start Norvasc for hypertension. Continue with cefepime and vancomycin for drug- resistant osteomyelitis. Bone scan pending. MMODL / IJN: [id number] /
[2019-05-02] MEDS: HYDROmorphone 1 MG/ML 1 ML SYRINGE IVP PRN ×6 (02:31→22:31)
[2019-05-02] MEDS: HYDROcodone/APAP 10-325MG 1 EACH TAB PO PRN ×3 (03:24→20:17)
[2019-05-02] MEDS: clonazePAM 1 MG TAB PO PRN ×3 (03:24→21:19)
[2019-05-02] MEDS: PANTOPRAZOLE 40 MG TABLET PO SCH (07:59)
[2019-05-02] MEDS: MULTIVITAMINS, THERA 1 EACH TAB PO SCH (07:59)
[2019-05-02] MEDS: NICOTINE 14MG/24HR PATCH TRANSDERM SCH (07:59)
[2019-05-02] MEDS: amLODIPine 5 MG TAB PO SCH ×2 (07:59→20:16)
[2019-05-02] MEDS: CEFEPIME 2 GM in SODIUM CHLORIDE 0.9% 100 ML IVPB SCH ×2 (08:00→16:42)
[2019-05-02] MEDS: DULoxetine HCL 30 MG CAPSULE.DR PO SCH ×2 (08:00→21:08)
[2019-05-02] MEDS: SODIUM CHLORIDE 0.9% 1,000 ML IV SCH ×2 (14:48→16:19)
--- NOTE | 2019-05-02 16:57 | PN ---
PROGRESS NOTE DATE OF SERVICE: 05/02/2019. REASON FOR FOLLOWUP: Left leg wound cellulitis and a question of osteomyelitis. INTERVAL HISTORY: The patient is currently afebrile; has been complaining of not getting his pain medication as prescribed, as the nurses are diluting it. The patient denies having any chest pain or shortness of breath or cough. No abdominal pain or worsening pain in the left leg area. PHYSICAL EXAMINATION: Blood pressure is 181/87, pulse of 72, temperature of 98.1. He is 97% on room air. General description is a middle-aged male lying in bed in no distress. RESPIRATORY SYSTEM: Unlabored breathing. Clear to auscultation anteriorly. HEART: S1, S2. Regular rate and rhythm. ABDOMEN: Soft. No tenderness. LABS: White count 9.9, creatinine 0.50. CRP 17.3. Wound culture with Gram-negative. Blood culture has been negative. DIAGNOSTIC IMPRESSION AND PLAN: Patient with a left leg wound, cellulitis with concern for underlying osteomyelitis. The patient is currently covered with cefepime, to which the patient has responded. Waiting for the final this pathogen to determine his discharge antibiotics. He will need a PICC line, which has been ordered, and monitor his clinical course closely. MMODL / IJN: [id number] /
[2019-05-02 21:59] VITALS: RESP 18
--- NOTE | 2019-05-02 23:27 | PN ---
PROGRESS NOTE bone scan. The patient is going to get a PICC line. PT/OT will be ordered. He will possibly need alf placement for IV antibiotics for a long period of time. Wait for infectious disease recommendations. CARDIOVASCULAR: S1, S2. LUNGS: Clear. GI: Soft. HEMATOLOGY: Negative Homans. INTEGUMENT: Left lower tibia severe redness and leg deformity. Continue current treatment. MMODL / IJN: [id number] /
[2019-05-03] MEDS: HYDROmorphone 1 MG/ML 1 ML SYRINGE IVP PRN ×2 (02:37→08:12)
[2019-05-03] MEDS: CEFEPIME 2 GM in SODIUM CHLORIDE 0.9% 100 ML IVPB SCH ×2 (02:37→08:15)
[2019-05-03 05:27] VITALS: PULSE 66; TEMP 97.9
[2019-05-03] MEDS: clonazePAM 1 MG TAB PO PRN ×2 (05:32→13:20)
[2019-05-03] MEDS: HYDROcodone/APAP 10-325MG 1 EACH TAB PO PRN ×2 (05:32→11:38)
[2019-05-03] MEDS: MULTIVITAMINS, THERA 1 EACH TAB PO SCH (08:15)
[2019-05-03] MEDS: NICOTINE 14MG/24HR PATCH TRANSDERM SCH (08:15)
[2019-05-03] MEDS: PANTOPRAZOLE 40 MG TABLET PO SCH (08:15)
[2019-05-03] MEDS: amLODIPine 5 MG TAB PO SCH (08:15)
[2019-05-03] MEDS: DULoxetine HCL 30 MG CAPSULE.DR PO SCH ×2 (08:15→08:21)
[2019-05-03] MEDS: SODIUM CHLORIDE 0.9% 1,000 ML IV SCH ×2 (08:22→11:00)
[2019-05-03 11:00] VITALS: BP 162/88
--- NOTE | 2019-05-03 11:17 | P.DS ---
Providers Date of admission: 04/30/19 14:48 Expected date of discharge: 05/03/19 Attending physician: Bob West Consults: 04/30/19 14:49 Consult Physician Routine Consulting Provider: Neli Larson Consult Reason/Comments: Acute on chronic left leg infection Do you want consulting provider notified?: Yes [facility] Course: Final Diagnoses: (1) Cellulitis of leg without foot, left Current Visit: Yes Status: Acute Code(s): L03.116 - CELLULITIS OF LEFT LOWER LIMB SNOMED Code(s): 485922561 (2) Leg wound, left Current Visit: Yes Status: Acute Code(s): S81.802A - UNSPECIFIED OPEN WOUND, LEFT LOWER LEG, INITIAL ENCOUNTER SNOMED Code(s): 020998995 (3) hypertension (4) ongoing nicotine dependence (5) THC use (6) alcohol use (7) depression Hospital course: This a 63-year-old gentleman admitted with chronic nonhealing wound of left leg , history of necrotizing fasciitis, multiple surgeries, prior episodes of osteomyelitis and multiple other medical issues. Patient did not follow through with his follow-up appointments at the wound care center. Leg x- rays reported soft tissue swelling without bony changes. Venous Doppler reported no DVT at about the left knee. Bone scan reported possible chronic osteomyelitis with cellulitis, Evaluated by infectious disease. Maintained on vancomycin and cefepime IV antibiotics. Significant clinical improvement. Patient is being discharged to [facility] in a stable condition with guarded prognosis pending PICC line placement. Microbiology 04/30/19 13:40 Leg - Left Gram Stain - Final 04/30/19 13:40 Leg - Left Wound Culture - Final Enterobacter cloacae Enterobacter cloacae#2 04/30/19 15:18 Blood Blood Culture - Preliminary No Growth after 48 hours EXAM: GENERAL: Alert and oriented 3, no acute distress CARDIOVASCULAR: S1, S2 regular. No murmur RESPIRATION: Breath sounds diminished in the bases. ABDOMEN: Soft, nontender . No guarding. no masses palpable. No ascites, No hepatosplenomegaly.Bowel sounds heard. NERVOUS SYSTEM: Cranial N 2-12 grossly normal. Diffuse weakness No focal deficits. Skin: Chronic left leg wound, dressing clean dry and intact The impression and plan of care has been dictated as directed. : I performed a history and examination of this patient, discussed the same with the dictator. I agree with the dictator's note ,documented as a scribe. Any additional findings or plans will be noted. Patient Condition at Discharge: Stable Plan - Discharge Summary New Discharge Prescriptions: New amLODIPine [Norvasc] 5 mg PO BID #60 tab Continue Pantoprazole [Protonix] 40 mg PO DIRECTED Nicotine 14Mg/24Hr Patch [Habitrol] 1 patch TRANSDERM DIRECTED Ensure 1 can PO DIRECTED HYDROcodone/APAP 10-325MG [[place] 10-325] 1 tab PO DIRECTED Multivitamins, Thera [Multivitamin (formulary)] 1 tab PO DIRECTED Sodium Bicarbonate Tab 650 mg PO DIRECTED PRN PRN Reason: Heartburn Changed DULoxetine HCL [Cymbalta] 30 mg PO BID #0 clonazePAM [KlonoPIN] 1 mg PO TID #0 Discharge Medication List Ensure 1 can PO DIRECTED 04/30/19 [History] HYDROcodone/APAP 10-325MG [[place] 10-325] 1 tab PO DIRECTED 04/30/19 [History] Multivitamins, Thera [Multivitamin (formulary)] 1 tab PO DIRECTED 04/30/19 [History] Nicotine 14Mg/24Hr Patch [Habitrol] 1 patch TRANSDERM DIRECTED 04/30/19 [History] Pantoprazole [Protonix] 40 mg PO DIRECTED 04/30/19 [History] Sodium Bicarbonate Tab 650 mg PO DIRECTED PRN 04/30/19 [History] DULoxetine HCL [Cymbalta] 30 mg PO BID #0 05/03/19 [Rx] amLODIPine [Norvasc] 5 mg PO BID #60 tab 05/03/19 [Rx] clonazePAM [KlonoPIN] 1 mg PO TID #0 05/03/19 [Rx] Follow up Appointment(s)/Referral(s): Bob West MD [Primary Care Provider] - 3 Days Activity/Diet/Wound Care/Special Instructions: [facility] Pending PICC line placement, discharge antibiotics, wound care, clearance from ID CBC,BMP in 3 days Diet: regular
[2019-05-03] MEDS ORDERED: LIDOCAINE 1% INJ 10MG/ML (20 ML MDV) ONE (12:03)
[2019-05-03] MEDS ORDERED: LIDOCAINE 1% INJ 10MG/ML (20 ML MDV) SQ ONE (12:20)
--- NOTE | 2019-05-03 12:44 | IR ---
PICC LINE PLACEMENT: HISTORY: Infection requiring long-term antibiotic therapy PROCEDURE: Ultrasound and fluoroscopic guidance of PICC line placement. COMPLICATIONS: None ANESTHESIA: 1. 1% Lidocaine locally. FINDINGS/TECHNIQUE: The procedure was explained to the patient. The risks, complications, benefits and alternatives were discussed and any questions were answered. Informed consent was obtained. The patient was placed supine on the fluoroscopic table and prepped and draped in the usual sterile fash ion. Utilizing a 21 gauge needle and sonographic and fluoroscopic guidance, access in the right bas ilic vein was achieved and there is placement of a 0.018 guidewire. The vein is patent. A 4-F sheat h was placed over the guidewire. The guidewire and dilator were removed and a 4-F. PICC line was john eric through the sheath with the tip at the level of the SVC. The sheath was removed, the catheter wa s flushed and sutured into position. The patient was stable throughout the procedure and remained st able upon discharge from the Department of Radiology. The vein puncture was patent under ultrasound. A smart scale image was obtained to document patency of the vein punctured. All elements of the maximal barrier technique were utilized. FLUOROSCOPY TIME: 0.8 minutes and one image submitted. IMPRESSION: Successful PICC line placement under ultrasound and fluoroscopic guidance.
--- NOTE | 2019-05-03 13:44 | PN ---
PROGRESS NOTE DATE OF SERVICE: 05/03/2019 REASON FOR FOLLOWUP: Left leg wound cellulitis and osteomyelitis. INTERVAL HISTORY: The patient is currently afebrile. Patient is breathing comfortably. The patient denies having any chest pain, shortness of breath or cough. Still having pain to the left leg, but overall swelling and redness has improved. PHYSICAL EXAMINATION: Blood pressure 162/88 with a pulse of 66, temperature 97.9. She is 95% on room air. General description is a middle-aged male lying in bed in no distress. RESPIRATORY SYSTEM: Unlabored breathing, clear to auscultation anteriorly. HEART: S1, S2. Regular rate and rhythm. ABDOMEN: Soft, no tenderness. Left leg swelling and redness is improved. LABS: Hemoglobin is 17.7, white count 9.9. Creatinine 0.50. CRP 17.3. Sed rate of 8. DIAGNOSTIC IMPRESSION AND PLAN: Patient with left leg chronic nonhealing wound with secondary cellulitis, concern for possible osteomyelitis. The patient has got a mid PICC line. Antibiotic, cefepime to continue 2 grams q.8 hours for total of 6 weeks with weekly monitoring of CBC. BMP and Sed rate. [facility] dressing to be changed daily and follow up with [facility] in one week. Questions and concerns were answered. MMODL / IJN: [id number] /
== END 2019-05-03 13:50 | DRG 603 ==
LOC: EC 13:22 → 5NMEDONC 14:48
PROVIDERS: ADMIT Family Medicine; ATTEND Family Medicine
PROC: 02HV33Z Insertion of Infusion Device into Superior Vena Cava, Percutaneous Approach (ICD-10-PCS; principal; 2019-05-03 07:30)
DX: L03.116 Cellulitis of left lower limb (principal); M86.68 Other chronic osteomyelitis, other site; F17.200 Nicotine dependence, unspecified, uncomplicated; F32.9 Major depressive disorder, single episode, unspecified; F43.10 Post-traumatic stress disorder, unspecified; I10 Essential (primary) hypertension; I25.2 Old myocardial infarction; J44.9 Chronic obstructive pulmonary disease, unspecified; F41.9 Anxiety disorder, unspecified; M19.90 Unspecified osteoarthritis, unspecified site; R41.3 Other amnesia; S81.802S Unspecified open wound, left lower leg, sequela; Z79.82 Long term (current) use of aspirin; Z79.899 Other long term (current) drug therapy; Z88.6 Allergy status to analgesic agent; Z88.1 Allergy status to other antibiotic agents; Z88.5 Allergy status to narcotic agent; Z88.0 Allergy status to penicillin; Z88.2 Allergy status to sulfonamides; Z87.01 Personal history of pneumonia (recurrent); Z87.39 Personal history of other diseases of the musculoskeletal system and connective tissue; Z91.19 Patient's noncompliance with other medical treatment and regimen; Z87.820 Personal history of traumatic brain injury; Z91.81 History of falling; Z86.14 Personal history of Methicillin resistant Staphylococcus aureus infection; Z82.49 Family history of ischemic heart disease and other diseases of the circulatory system; Z82.5 Family history of asthma and other chronic lower respiratory diseases; Z83.79 Family history of other diseases of the digestive system
CPT/HCPCS: 36573; 78315; 80053; 80202; 83605; 85025; 85610; 85652; 85730; 86140; 87040; 87070; 87077; 87186; 87205; 96365; 96368; 96375; 99285

== ENCOUNTER 2019-06-28 12:12 | Inpatient (IN) | payer MEDICARE, OTHER ==
[2019-06-28] MEDS ORDERED: SODIUM CHLORIDE 0.9% 1,000 ML IV STA (12:25)
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
[2019-06-28 13:09] LABS: ALT 20 U/L (4-49); AST 48 U/L (17-59); African American GFR (CKD) >90 (>60 ml/min/1.73 sqM); Albumin 4.1 g/dL (3.5-5.0); Alkaline Phosphatase 73 U/L (38-126); Anion Gap 9 mmol/L; Blood Urea Nitrogen 5 mg/dL (9-20); Calcium 9.2 mg/dL (8.4-10.2); Carbon Dioxide 23 mmol/L (22-30); Chloride 106 mmol/L (98-107); Glucose 94 mg/dL (74-99); Non-African American GFR(CKD) >90 (>60 ml/min/1.73 sqM); Sodium 138 mmol/L (137-145); Total Bilirubin 0.7 mg/dL (0.2-1.3)
[2019-06-28 13:12] LABS: Basophils % (A) 0 %; Eosinophils # (A) 0.4 k/uL (0-0.7); Eosinophils % (A) 4 %; HCT 45.7 % (39.0-53.0); HGB 15.7 gm/dL (13.0-17.5); Lymphocytes # (A) 1.2 k/uL (1.0-4.8); Lymphocytes % (A) 10 %; MCH 31.8 pg (25.0-35.0); MCHC 34.4 g/dL (31.0-37.0); Mean Platelet Volume 7.9; Monocytes # (A) 0.6 k/uL (0-1.0); Monocytes % (A) 5 %; Neutrophils % (A) 81 %; Platelet Count 315 k/uL (150-450); RBC 4.95 m/uL (4.30-5.90); RDW 13.5 % (11.5-15.5); WBC 12.4 k/uL (3.8-10.6)
--- NOTE | 2019-06-28 13:13 | XR ---
Left leg HISTORY: Cellulitis, osteomyelitis, pain Frontal and lateral views of the left leg submitted on 4 images correlated prior exam 04/30/2019 There is not a significant interval change in the appearance. IMPRESSION: Posttraumatic changes are chronic, correlate for possible chronic osteomyelitis.
[2019-06-28 13:14] LABS: MCV 92.4 fL (80.0-100.0)
[2019-06-28 13:16] LABS: Potassium 4.3 mmol/L (3.5-5.1)
[2019-06-28] MEDS ORDERED: HYDROmorphone 0.5 MG/0.5 ML SYRINGE IVP STA (14:52)
[2019-06-28] MEDS ORDERED: LORazepam 2 MG/ML INJ IV PRN (16:04)
[2019-06-28] MEDS ORDERED: NALOXONE 0.4 MG/ML 1 ML VIAL IV PRN (16:04)
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
[2019-06-28] MEDS ORDERED: NICOTINE POLACRILEX 2 MG GUM BUCCAL PRN (19:48)
[2019-06-28] MEDS ORDERED: ACETAMINOPHEN TAB 325 MG TAB PO PRN (19:48)
[2019-06-28] MEDS: HYDROcodone/APAP 5-325MG 1 EACH TAB PO PRN (20:03)
[2019-06-28] MEDS: HEPARIN SODIUM,PORCINE 5,000 UNIT/ML 1 ML VIAL SQ SCH (20:04)
[2019-06-28] MEDS: SODIUM CHLORIDE 0.9% 1,000 ML IV SCH (20:05)
[2019-06-28] MEDS ORDERED: NICOTINE 14MG/24HR PATCH TRANSDERM SCH (20:10)
[2019-06-28] MEDS: CEFEPIME 1 GM in SODIUM CHLORIDE 0.9% 50 ML IVPB SCH (21:56)
[2019-06-28] MEDS: ALPRAZolam 0.25 MG TAB PO PRN (21:57)
[2019-06-28] MEDS: HYDROmorphone 0.5 MG/0.5 ML SYRINGE IVP PRN (21:57)
[2019-06-28] MEDS: NICOTINE 14MG/24HR PATCH TRANSDERM SCH (22:07)
[2019-06-29] MEDS: HYDROmorphone 0.5 MG/0.5 ML SYRINGE IVP PRN ×7 (01:40→21:42)
[2019-06-29] MEDS: HYDROcodone/APAP 5-325MG 1 EACH TAB PO PRN (04:23)
[2019-06-29] MEDS: ALPRAZolam 0.25 MG TAB PO PRN ×3 (05:38→20:40)
[2019-06-29] MEDS: SODIUM CHLORIDE 0.9% 1,000 ML IV SCH ×2 (06:03→19:54)
[2019-06-29] MEDS ORDERED: NICOTINE 14MG/24HR PATCH TRANSDERM SCH (09:00)
[2019-06-29 09:32] LABS: HCT 45.3 % (39.0-53.0); HGB 15.9 gm/dL (13.0-17.5); MCH 32.4 pg (25.0-35.0); MCV 92.5 fL (80.0-100.0); Mean Platelet Volume 8.2; Platelet Count 306 k/uL (150-450); RDW 13.4 % (11.5-15.5); WBC 11.2 k/uL (3.8-10.6)
[2019-06-29] MEDS ORDERED: FAMOTIDINE 20 MG/2 ML VIAL IV ONE (09:45)
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
[2019-06-29] MEDS: CEFEPIME 1 GM in SODIUM CHLORIDE 0.9% 50 ML IVPB SCH ×2 (10:12→20:46)
[2019-06-29] MEDS: HEPARIN SODIUM,PORCINE 5,000 UNIT/ML 1 ML VIAL SQ SCH ×2 (10:12→15:32)
[2019-06-29] MEDS: clonazePAM 1 MG TAB PO SCH ×3 (10:12→21:41)
[2019-06-29 10:22] LABS: African American GFR (CKD) >90 (>60 ml/min/1.73 sqM); Anion Gap 8 mmol/L; Blood Urea Nitrogen 8 mg/dL (9-20); C Reactive Protein <5.0 mg/L (<10.0); Calcium 9.9 mg/dL (8.4-10.2); Carbon Dioxide 26 mmol/L (22-30); Chloride 102 mmol/L (98-107); Glucose 88 mg/dL (74-99); Non-African American GFR(CKD) >90 (>60 ml/min/1.73 sqM); Potassium 4.2 mmol/L (3.5-5.1); Sodium 136 mmol/L (137-145)
[2019-06-29] MEDS: ONDANSETRON 4 MG/2 ML VIAL IVP PRN (10:56)
[2019-06-29] MEDS: CALCIUM CARBONATE 500 MG CHEWABLE PO PRN ×2 (10:56→21:43)
[2019-06-29] MEDS: NICOTINE 14MG/24HR PATCH TRANSDERM SCH (13:56)
[2019-06-29] MEDS: PANTOPRAZOLE 40 MG TABLET PO SCH (16:49)
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
[2019-06-30] MEDS: ONDANSETRON 4 MG/2 ML VIAL IVP PRN (00:19)
[2019-06-30] MEDS: HEPARIN SODIUM,PORCINE 5,000 UNIT/ML 1 ML VIAL SQ SCH ×4 (00:19→23:02)
[2019-06-30] MEDS: HYDROcodone/APAP 5-325MG 1 EACH TAB PO PRN ×2 (00:40→23:02)
[2019-06-30] MEDS: HYDROmorphone 0.5 MG/0.5 ML SYRINGE IVP PRN ×4 (02:37→20:58)
[2019-06-30] MEDS: ALPRAZolam 0.25 MG TAB PO PRN (03:26)
[2019-06-30 07:05] LABS: HCT 45.2 % (39.0-53.0); HGB 15.1 gm/dL (13.0-17.5); MCH 31.7 pg (25.0-35.0); MCHC 33.5 g/dL (31.0-37.0); MCV 94.7 fL (80.0-100.0); Mean Platelet Volume 7.9; Platelet Count 239 k/uL (150-450); RBC 4.77 m/uL (4.30-5.90); RDW 13.3 % (11.5-15.5); WBC 9.4 k/uL (3.8-10.6)
[2019-06-30 07:56] LABS: African American GFR (CKD) >90 (>60 ml/min/1.73 sqM); Anion Gap 9 mmol/L; Blood Urea Nitrogen 10 mg/dL (9-20); Calcium 9.2 mg/dL (8.4-10.2); Carbon Dioxide 26 mmol/L (22-30); Chloride 102 mmol/L (98-107); Glucose 104 mg/dL (74-99); Non-African American GFR(CKD) >90 (>60 ml/min/1.73 sqM); Potassium 3.9 mmol/L (3.5-5.1); Sodium 137 mmol/L (137-145)
[2019-06-30] MEDS: CEFEPIME 1 GM in SODIUM CHLORIDE 0.9% 50 ML IVPB SCH ×2 (08:18→20:38)
[2019-06-30] MEDS: CALCIUM CARBONATE 500 MG CHEWABLE PO PRN (08:18)
[2019-06-30] MEDS: LORATADINE 10 MG TAB PO SCH (08:18)
[2019-06-30] MEDS: clonazePAM 1 MG TAB PO SCH ×2 (08:19→20:38)
[2019-06-30] MEDS: PANTOPRAZOLE 40 MG TABLET PO SCH (08:19)
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
[2019-06-30] MEDS: SODIUM CHLORIDE 0.9% 1,000 ML IV SCH ×2 (09:46→20:49)
[2019-06-30 12:24] VITALS: BMI 25.0
[2019-06-30] MEDS: IRON AG/C/B12/CA/SUC.ACID/STOM 1 EACH TAB PO SCH (12:37)
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
--- NOTE | 2019-06-30 20:17 | PN ---
PROGRESS NOTE DATE OF SERVICE: 06/30/2019 REASON FOR FOLLOWUP: Left leg chronic nonhealing wound. INTERVAL HISTORY: The patient is currently afebrile, has been breathing comfortably. The patient continues to have multiple complaints especially with pain. Denies having any chest pain or shortness of breath. No cough. No abdominal pain. No diarrhea. EXAMINATION: Blood pressure 139/69 with a pulse of 67, temperature 98.2. He is 97% on room air. General description is a middle-aged male lying in bed in no distress. Respiratory system: Unlabored breathing. Clear to auscultation anteriorly. Heart S1, S2. Regular rate and rhythm. Abdomen soft, no tenderness. The left leg wound is currently dressed up. No obvious drainage on the dressing. LABS: White count 9.4, creatinine 0.61. CRP less than 5. No cultures have been done this admission. DIAGNOSTIC IMPRESSION AND PLAN: Patient with a chronic nonhealing wound to the left leg with concern for secondary cellulitis. Clinically did not have features of cellulitis in this patient with no fever. The CRP has been normal. We will recommend local wound care only and possible followup in the outpatient setting with Plastic surgery for consideration of a flap. Would not recommend any IV antibiotic on discharge this admission. Local care to continue with Medihoney followed by moist dressing. MMODL / IJN: [id number] /
[2019-06-30] MEDS: NICOTINE 14MG/24HR PATCH TRANSDERM SCH (20:38)
[2019-07-01] MEDS: HYDROmorphone 0.5 MG/0.5 ML SYRINGE IVP PRN ×7 (00:37→20:10)
[2019-07-01 07:06] LABS: Basophils % (A) 0 %; Eosinophils # (A) 0.4 k/uL (0-0.7); Eosinophils % (A) 6 %; HCT 43.5 % (39.0-53.0); HGB 14.5 gm/dL (13.0-17.5); Lymphocytes # (A) 1.7 k/uL (1.0-4.8); Lymphocytes % (A) 21 %; MCH 31.6 pg (25.0-35.0); MCHC 33.3 g/dL (31.0-37.0); Monocytes # (A) 0.6 k/uL (0-1.0); Monocytes % (A) 7 %; Neutrophils # (A) 4.9 k/uL (1.3-7.7); Neutrophils % (A) 63 %; Platelet Count 215 k/uL (150-450); RBC 4.57 m/uL (4.30-5.90); RDW 13.4 % (11.5-15.5); WBC 7.8 k/uL (3.8-10.6)
[2019-07-01 07:13] LABS: ALT 19 U/L (4-49); AST 33 U/L (17-59); African American GFR (CKD) >90 (>60 ml/min/1.73 sqM); Albumin 3.8 g/dL (3.5-5.0); Alkaline Phosphatase 98 U/L (38-126); Anion Gap 7 mmol/L; Blood Urea Nitrogen 16 mg/dL (9-20); Calcium 9.5 mg/dL (8.4-10.2); Carbon Dioxide 25 mmol/L (22-30); Chloride 103 mmol/L (98-107); Glucose 87 mg/dL (74-99); Non-African American GFR(CKD) >90 (>60 ml/min/1.73 sqM); Potassium 4.4 mmol/L (3.5-5.1); Sodium 135 mmol/L (137-145); Total Bilirubin 0.6 mg/dL (0.2-1.3); Total Protein 7.3 g/dL (6.3-8.2)
[2019-07-01] MEDS: HYDROcodone/APAP 5-325MG 1 EACH TAB PO PRN ×3 (07:23→22:09)
[2019-07-01] MEDS: HEPARIN SODIUM,PORCINE 5,000 UNIT/ML 1 ML VIAL SQ SCH ×2 (09:56→15:22)
[2019-07-01] MEDS: DULoxetine HCL 30 MG CAPSULE.DR PO SCH (09:58)
[2019-07-01] MEDS: PANTOPRAZOLE 40 MG TABLET PO SCH (09:58)
[2019-07-01] MEDS: clonazePAM 1 MG TAB PO SCH ×2 (09:58→20:04)
[2019-07-01] MEDS: IRON AG/C/B12/CA/SUC.ACID/STOM 1 EACH TAB PO SCH (09:58)
[2019-07-01] MEDS: LORATADINE 10 MG TAB PO SCH (09:58)
[2019-07-01] MEDS: CEFEPIME 1 GM in SODIUM CHLORIDE 0.9% 50 ML IVPB SCH ×2 (10:24→20:06)
--- NOTE | 2019-07-01 11:57 | P.PN ---
Subjective Progress Note Date: 07/01/19 The patient's and examined at bedside, has no significant complaints today. Her parents that he has no place to go at present than that he is looking into finding placement in correlation with case management and social work. Objective - Vital Signs Vital signs: Vital Signs Temp 98.3 F 07/01/19 08:30 Pulse 91 07/01/19 08:30 Resp 18 07/01/19 08:30 BP 149/93 07/01/19 08:30 Pulse Ox 97 07/01/19 08:30 Intake & Output 06/30/19 07/01/19 07/01/19 18:59 06:59 18:59 Intake Total 100 Output Total 200 Balance 100 -200 Weight 83.915 kg Intake: Oral 100 Output: Emesis 200 Other: Voiding Method Toilet Toilet # Voids 1 2 2 - Exam Constitutional: No acute distress, conversant, pleasant Eyes: Anicteric sclerae, moist conjunctiva, no lid-lag, PERRLA ENMT: NC/AT,Oropharynx clear, no erythema, exudates Neck:Supple, FROM, no masses, or JVD, No carotid bruits; No thyromegaly Lungs: Clear to auscultation, Clear to percussion, Normal respiratory effort, no accessory muscle use Cardiovascular: Heart regular in rate and rhythm, No murmurs, gallops, or rubs no peripheral edema Abdominal: Soft Nontender, nom distended, no guarding, no rebound or rigidity, Normoactive bowel sounds No hepatomegaly, No splenomegaly, No palpable mass No abdominal wall hernia noted Skin: Normal temperature, tone, texture, turgor, No induration No subcutaneous nodules, No rash, lesions, No ulcers Extremities:No digital cyanosis No clubbing, Pedal pulses intact and symmetrical Radial pulses intact and symmetrical Normal gait and station, No calf tenderness Psychiatric: Alert and oriented to person, place and time, Appropriate affect Intact judgement Neuro: Muscles Strength 5/5 in all 4 extremities, Sensation to light touch grossly present throughout, Cranial nerves II-XII grossly intact. No focal sensory deficits - Labs CBC & Chem 7: 07/01/19 06:37 07/01/19 06:37 Labs: Abnormal Lab Results - Last 24 Hours (Table) 07/01/19 Range/Units 06:37 Sodium 135 L (137-145) mmol/L Creatinine 0.55 L (0.66-1.25) mg/dL Assessment and Plan Assessment: Chronic left lower extremity wound with chronic venous stasis - Osteomyelitis. Continue Cefepime per ID. Patient currently refusing transfer to [facility] for skin graft as ID is recommending. - Consult Psych - pain control - wound care as per ID - follow CBC nausea and GERD - PPI - tums COPD without exacerbation - prn bronchodilators HTN - not taking meds at home - monitor BP Anxiety - resume home kloponin HX of closed head injury DVT prophylaxis: Heparin Discussed with: patient, nursing Anticipated discharge date: Monday Anticipated discharge place: [facility] to [facility] A total of 30 minutes was spent on the care of this complex patient more than 50% of the time was spent in counseling and care coordination.
--- NOTE | 2019-07-01 18:20 | PN ---
PROGRESS NOTE DATE OF SERVICE: 07/01/2019 REASON FOR FOLLOWUP: Left lower extremity wound and cellulitis. INTERVAL HISTORY: The patient is currently afebrile. The patient has been breathing comfortably. Patient denies having any chest pain or shortness of breath or cough. No abdominal pain or any worsening pain to the left leg. PHYSICAL EXAMINATION: Blood pressure is 150/81 with pulse of 85, temperature 97.8. He is 97% on room air. General description is a middle-aged male up in the room in no distress. RESPIRATORY SYSTEM: Unlabored breathing. Clear to auscultation anteriorly. HEART: S1, S2. Regular rate and rhythm. ABDOMEN: Soft. No tenderness. Left leg wound base looks clean, with no surrounding redness or any drainage. DIAGNOSTIC IMPRESSION AND PLAN: Patient admitted to hospital with left leg wound with a question of possible cellulitis. At this time local care to continue with [facility]. Antibiotic will be switched over to Ceftin. The patient tolerated Keflex in the past. He is advised to follow up with the wound care center next week. Continue supportive care. MMODL / IJN: [id number] /
[2019-07-01] MEDS: NICOTINE 14MG/24HR PATCH TRANSDERM SCH (20:05)
[2019-07-01] MEDS: SODIUM CHLORIDE 0.9% 1,000 ML IV SCH ×2 (20:05)
[2019-07-02] MEDS: HYDROmorphone 0.5 MG/0.5 ML SYRINGE IVP PRN (00:05)
[2019-07-02] MEDS: HEPARIN SODIUM,PORCINE 5,000 UNIT/ML 1 ML VIAL SQ SCH ×3 (00:05→15:50)
[2019-07-02] MEDS: HYDROcodone/APAP 5-325MG 1 EACH TAB PO PRN ×2 (03:23→09:59)
[2019-07-02] MEDS: CEFEPIME 1 GM in SODIUM CHLORIDE 0.9% 50 ML IVPB SCH (08:09)
[2019-07-02] MEDS: PANTOPRAZOLE 40 MG TABLET PO SCH (08:11)
[2019-07-02] MEDS: LORATADINE 10 MG TAB PO SCH (08:11)
--- NOTE | 2019-07-02 09:34 | P.DS ---
Providers Date of admission: 06/28/19 15:43 Expected date of discharge: 07/02/19 Attending physician: Margi Giang DO Consults: 06/28/19 17:18 Consult Physician Stat Consulting Provider: Neli Larson Consult Reason/Comments: Osteomylitis/ left leg wound Do you want consulting provider notified?: Yes 06/30/19 08:42 Consult Physician Routine Consulting Provider: Jim Michaels Consult Reason/Comments: Aggressive behavior Do you want consulting provider notified?: Yes Primary care physician: Stated None Hospital Course: Discharge diagnoses Left lower extremity cellulitis Chronic left leg wound History of recurrent osteomyelitis COPD without exacerbation Essential hypertension GERD anxiety hospital course The patient is a 63-year-old male with a history of chronic nonhealing left leg wound and recurrent osteomyelitis that presented with complaints of left lower extremity discharge and pain and was admitted to to a pack concern for left lower extremity cellulitis or osteomyelitis workup with a tib-fib x-ray distended with chronic osteomyelitis he was found to have elevated white count of 12.4 and he was admitted and started on empiric IV antibiotics with IV cefepime and IV fluids. ID was consulted due to concern for possible secondary cellulitis, the patient's CRP was within normal limits and the patient remained afebrile. ID recommended that the patient be transferred to [facility] to be evaluated for possible skin graft to prevent any further infections. The patient was not amenable to this course of treatment and resisted transfer, he was subsequently discharged home in stable condition with recommendations to continue Ceftin. This discharge process took approximately 35 minutes Focused exam Left lower extremity leg wound appears clean no surrounding erythema or drainage neurovascularly intact with brisk capillary refill, Patient Condition at Discharge: Good Plan - Discharge Summary Discharge Rx Participant: Yes New Discharge Prescriptions: New Cefuroxime Axetil [Ceftin] 500 mg PO BID #20 tab Continue Pantoprazole [Protonix] 40 mg PO HS Nicotine 14Mg/24Hr Patch [Habitrol] 1 patch TRANSDERM DIRECTED amLODIPine [Norvasc] 5 mg PO BID #60 tab DULoxetine HCL [Cymbalta] 30 mg PO BID #0 clonazePAM [KlonoPIN] 1 mg PO TID Acetaminophen Tab [Tylenol] 650 mg PO Q4H PRN PRN Reason: Pain traMADol HCL [Ultram] 50 mg PO QID PRN PRN Reason: Pain Cetirizine HCl [Zyrtec] 10 mg PO DAILY Discharge Medication List Nicotine 14Mg/24Hr Patch [Habitrol] 1 patch TRANSDERM DIRECTED 04/30/19 [History] Pantoprazole [Protonix] 40 mg PO HS 04/30/19 [History] DULoxetine HCL [Cymbalta] 30 mg PO BID #0 05/03/19 [Rx] amLODIPine [Norvasc] 5 mg PO BID #60 tab 05/03/19 [Rx] Acetaminophen Tab [Tylenol] 650 mg PO Q4H PRN 06/28/19 [History] Cetirizine HCl [Zyrtec] 10 mg PO DAILY 06/28/19 [History] clonazePAM [KlonoPIN] 1 mg PO TID 06/28/19 [History] traMADol HCL [Ultram] 50 mg PO QID PRN 06/28/19 [History] Cefuroxime Axetil [Ceftin] 500 mg PO BID #20 tab 07/01/19 [Rx] Follow up Appointment(s)/Referral(s): Bob West MD [STAFF PHYSICIAN] - 1-2 days Patient Instructions/Handouts: Osteomyelitis (ED) Activity/Diet/Wound Care/Special Instructions: Patient will be admitted
[2019-07-02] MEDS: clonazePAM 1 MG TAB PO SCH (09:59)
[2019-07-02] MEDS: DULoxetine HCL 30 MG CAPSULE.DR PO SCH (09:59)
[2019-07-02] MEDS: IRON AG/C/B12/CA/SUC.ACID/STOM 1 EACH TAB PO SCH (10:00)
[2019-07-02] MEDS: SODIUM CHLORIDE 0.9% 1,000 ML IV SCH (12:15)
--- NOTE | 2019-07-02 12:54 | PN ---
PROGRESS NOTE DATE OF SERVICE: 07/02/2019 REASON FOR FOLLOWUP: Left leg wound and a question of cellulitis. INTERVAL HISTORY: The patient is currently afebrile. The patient has been breathing comfortably. Denies having any chest pain or shortness of breath or cough. No nausea, vomiting or abdominal pain. Pain to the left leg currently improved. Currently his concern has been no place to live. PHYSICAL EXAMINATION: Blood pressure 141/79 with a pulse of 59, temperature 97.9. He is 93% on room air. General description is a middle-aged male up in the room in no distress. RESPIRATORY SYSTEM: Unlabored breathing, clear to auscultation anteriorly. HEART: S1, S2. Regular rate and rhythm. ABDOMEN: Soft, no tenderness. Left leg wound with no surrounding redness or any drainage. LABS: No new labs have been obtained today. DIAGNOSTIC IMPRESSION AND PLAN: Patient with chronic left lower extremity wound admitted to the hospital with concern for possible cellulitis has been noticed. Culture has been negative . Antibiotic transitioned to oral Ceftin for a short course .[facility] in a week for arrangement of possible skin graft. His questions and concerns were answered. MMODL / IJN: [id number] /
[2019-07-02 14:31] VITALS: BP 157/75; PULSE 66; RESP 17; TEMP 98.2
== END 2019-07-02 16:35 | disposition home or self-care (01) | DRG 603 ==
LOC: EC 12:12 → 4SSUR 15:43
PROVIDERS: ADMIT Internal Medicine; ATTEND Internal Medicine
DX: L03.116 Cellulitis of left lower limb (principal); F05 Delirium due to known physiological condition; F33.1 Major depressive disorder, recurrent, moderate; M86.60 Other chronic osteomyelitis, unspecified site; S81.802A Unspecified open wound, left lower leg, initial encounter; F17.210 Nicotine dependence, cigarettes, uncomplicated; F41.0 Panic disorder [episodic paroxysmal anxiety]; F43.10 Post-traumatic stress disorder, unspecified; I10 Essential (primary) hypertension; I25.2 Old myocardial infarction; J44.9 Chronic obstructive pulmonary disease, unspecified; K21.9 Gastro-esophageal reflux disease without esophagitis; I87.8 Other specified disorders of veins; M19.90 Unspecified osteoarthritis, unspecified site; E66.3 Overweight; Z68.25 Body mass index [BMI] 25.0-25.9, adult; Z79.899 Other long term (current) drug therapy; Z91.19 Patient's noncompliance with other medical treatment and regimen; Z87.820 Personal history of traumatic brain injury; Z86.14 Personal history of Methicillin resistant Staphylococcus aureus infection; Z91.81 History of falling; Z88.6 Allergy status to analgesic agent; Z88.1 Allergy status to other antibiotic agents; Z88.5 Allergy status to narcotic agent; Z88.0 Allergy status to penicillin; Z88.2 Allergy status to sulfonamides; Z87.01 Personal history of pneumonia (recurrent); Z82.49 Family history of ischemic heart disease and other diseases of the circulatory system; Z82.5 Family history of asthma and other chronic lower respiratory diseases
CPT/HCPCS: 36415; 80048; 80053; 85025; 85027; 86140; 96360; 99284

== ENCOUNTER 2019-08-07 12:03 | Inpatient (IN) | payer MEDICARE, OTHER ==
[2019-08-07] MEDS ORDERED: SODIUM CHLORIDE 0.9% 500 ML 500 ML IV ONE (12:14)
[2019-08-07] MEDS ORDERED: hydrALAZINE HCL 20 MG/ML 1 ML VIAL IVP STA (12:42)
[2019-08-07] MEDS ORDERED: HYDROmorphone 0.5 MG/0.5 ML SYRINGE IVP STA (12:43)
[2019-08-07 12:48] LABS: Basophils # (A) 0.1 k/uL (0-0.2); Basophils % (A) 1 %; Eosinophils # (A) 0.4 k/uL (0-0.7); Eosinophils % (A) 4 %; HCT 53.7 % (39.0-53.0); Lymphocytes # (A) 1.1 k/uL (1.0-4.8); Lymphocytes % (A) 11 %; MCH 32.9 pg (25.0-35.0); MCHC 33.2 g/dL (31.0-37.0); Mean Platelet Volume 7.9; Monocytes # (A) 0.6 k/uL (0-1.0); Monocytes % (A) 6 %; Neutrophils # (A) 7.8 k/uL (1.3-7.7); Neutrophils % (A) 78 %; Platelet Count 261 k/uL (150-450); RBC 5.43 m/uL (4.30-5.90); RDW 13.6 % (11.5-15.5); WBC 10.1 k/uL (3.8-10.6)
[2019-08-07 12:55] LABS: HGB 17.9 gm/dL (13.0-17.5)
[2019-08-07 12:58] LABS: ALT 57 U/L (4-49); African American GFR (CKD) >90 (>60 ml/min/1.73 sqM); Albumin 4.5 g/dL (3.5-5.0); Anion Gap 12 mmol/L; Blood Urea Nitrogen 14 mg/dL (9-20); Calcium 10.4 mg/dL (8.4-10.2); Carbon Dioxide 22 mmol/L (22-30); Chloride 104 mmol/L (98-107); Glucose 85 mg/dL (74-99); Non-African American GFR(CKD) >90 (>60 ml/min/1.73 sqM); Sodium 138 mmol/L (137-145); Total Bilirubin 1.5 mg/dL (0.2-1.3); Total Protein 8.3 g/dL (6.3-8.2)
[2019-08-07 13:11] LABS: AST 72 U/L (17-59); Alkaline Phosphatase 73 U/L (38-126); Potassium 4.4 mmol/L (3.5-5.1)
--- NOTE | 2019-08-07 13:17 | XR ---
EXAMINATION TYPE: XR tibia fibula LT DATE OF EXAM: 08/07/2019 CLINICAL HISTORY: Nonhealing wound mid shaft, assess for possible osteomyelitis. TECHNIQUE: Two views of the left leg are obtained. COMPARISON: Prior left leg x-ray June 28, 2019 and older studies. FINDINGS: Persistent demineralization. Persistent malunion fracture is fibular head along with mid sh aft of the fibula. Persistent malunion healed fracture of mid shaft of the tibia with extensive perio stitis extending proximally. Overlying surgical clip. No new suspicious cortical destruction or perio steal reaction. Persistent posterior angulation. Some sclerosis at this level remains present. [place] soft tissue is unchanged. IMPRESSION: As above. No convincing radiographic evidence for acute osteomyelitis. If clinical concer n persists further investigation with repeat 3 phase bone scan may be warranted.
[2019-08-07] MEDS ORDERED: SODIUM CHLORIDE 0.9% 1,000 ML IV ONE (13:20)
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
[2019-08-07] MEDS ORDERED: NALOXONE 0.4 MG/ML 1 ML VIAL IV PRN (14:11)
[2019-08-07] MEDS ORDERED: VANCOMYCIN IV PER PHARMACY 1 EACH MISC MISCELLANE PRN (14:15)
[2019-08-07] MEDS: HYDROmorphone 0.5 MG/0.5 ML SYRINGE IVP PRN ×3 (14:18→22:15)
[2019-08-07] MEDS ORDERED: VANCOMYCIN 1,250 MG in SODIUM CHLORIDE 0.9% 250 ML IVPB STA (14:25)
[2019-08-07] MEDS: SODIUM CHLORIDE 0.9% 1,000 ML IV SCH (15:00)
[2019-08-07] MEDS ORDERED: ACETAMINOPHEN TAB 325 MG TAB PO PRN (18:00)
[2019-08-07] MEDS ORDERED: PANTOPRAZOLE 40 MG TABLET PO PRN (18:00)
[2019-08-07] MEDS ORDERED: LORazepam 2 MG/ML INJ IV PRN ×3 (18:05)
[2019-08-07] MEDS ORDERED: THIAMINE 100 MG/ML 2 ML VIAL IM STA (18:05)
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
[2019-08-07] MEDS: NICOTINE 14MG/24HR PATCH TRANSDERM SCH (19:14)
[2019-08-07] MEDS: HEPARIN SODIUM,PORCINE 5,000 UNIT/ML 1 ML VIAL SQ SCH (20:40)
[2019-08-07] MEDS: amLODIPine 5 MG TAB PO SCH (20:41)
[2019-08-07] MEDS: clonazePAM 1 MG TAB PO PRN (20:41)
[2019-08-07] MEDS: VANCOMYCIN 1,250 MG in SODIUM CHLORIDE 0.9% 250 ML IVPB SCH (23:06)
[2019-08-08] MEDS: HYDROmorphone 0.5 MG/0.5 ML SYRINGE IVP PRN ×7 (01:36→20:36)
--- NOTE | 2019-08-08 02:44 | CONS ---
CONSULTATION DATE OF SERVICE: 08/07/2019 REASON FOR CONSULTATION: Left leg wound and cellulitis. HISTORY OF PRESENT ILLNESS: The patient is a 63-year-old male with a past medical history significant for chronic nonhealing wound to the left leg and this patient did have multiple surgeries on the left leg and has been treated for osteomyelitis on multiple occasions. The patient is presenting to the ER at [facility] today with concern for apparently more redness and weeping of his left leg wound. The patient says that he cannot walk and get to his apartment. The patient also was complaining of some depression but no suicidal ideation. The patient continued to complain of significant pain to the left leg area, more of a dull aching, almost 10 out of 10 in severity. The patient did mention some drainage, but no foul smelling. Denies having any headache. No chest pain, shortness of breath or cough. No nausea, vomiting, abdominal pain, no diarrhea. On arrival to the ER, the patient was afebrile. The patient did have a normal white count. Lactic acid was normal. Liver enzymes mildly elevated. [place] PCR was negative the patient did have x-rays of left leg with no convincing radiographic evidence of acute osteomyelitis. The patient has been started on vancomycin and admitted to the hospital. Infectious Disease was consulted for further recommendations regarding antibiotic therapy. REVIEW OF SYSTEMS: Positive points have been mentioned in HPI. Rest of the systems negative. PAST MEDICAL HISTORY: Chronic nonhealing wound to the left leg with episodes of osteomyelitis with multiple courses of antibiotics in the past. The patient also has a history of fasciotomy to the left leg necrotizing fascitis, asthma, COPD, hypertension, AL, osteoarthritis, pneumonia, anxiety, depression, PTSD. PAST SURGICAL HISTORY: Past surgical history of multiple debridements of the left leg. The patient did have a tonsillectomy, fasciotomy left leg. SOCIAL HISTORY: The patient current everyday smoker. Admitted to marijuana use. FAMILY HISTORY: Father with history of hypertension. Mother history of COPD. ALLERGIES: TO MULTIPLE MEDICATIONS IN THE CHART INCLUDE CIPRO AND AUGMENTIN. MEDICATION: Currently includes the patient is on Tylenol, Norvasc, Klonopin, heparin, Dilaudid, Ativan, Narcan, Protonix, Restoril and vancomycin. PHYSICAL EXAMINATION: Blood pressure is 155/92 with a pulse of 83, temperature of 98.3. He is 94% on room air. General description: The patient is a middle-aged male lying in bed in no distress. No tachypnea or accessory muscle of respiration use. HEENT: Examination shows no pallor or scleral icterus. Oral mucosa membrane is dry. No pharyngeal erythema or thrush. NECK: Trachea central. No thyromegaly. LUNGS is unlabored breathing. Clear to auscultation anteriorly. No wheeze or crackles. HEART S1, S2. Regular rate and rhythm. No added sounds. ABDOMEN: Soft, no tenderness. No guarding or rigidity. EXTREMITIES: No edema of the feet. Examination left leg chronic nonhealing wound with minimal slough tissue. There is some swelling. No significant redness or warmth also noticed. No foul smelling. NEUROLOGICAL: Patient is awake, alert, oriented times three. Mood and affect normal. LABS: Hemoglobin 17.8, white count 10.1, BUN of 14, creatinine 0.67. X-rays did not show any evidence of bony changes. DIAGNOSTIC IMPRESSION AND PLAN: Patient with chronic nonhealing wound to the left leg. Apparently, this wound is looking better than what he has in the past in this patient currently with no fever or elevated white count. X-rays were negative. Clinically suspicion low for underlying acute osteomyelitis or even secondary cellulitis. PLAN: 1. We will check a CRP and sedimentation rate. If elevated, may consider a bone scan. Otherwise bone scan is recommended 2. Local wound care with [facility]. 3. Continue with vancomycin, pharmacy to dose target of 15, while watching his kidney function and vancomycin trough closely in view of MULTIPLE ANTIBIOTIC ALLERGIES. 4. We will follow up on clinical condition and investigations to further adjust medication if needed. Thank you for this consultation. Will follow this patient along with you. MMODL / IJN: [id number] / RAMIN
[2019-08-08] MEDS: SODIUM CHLORIDE 0.9% 1,000 ML IV SCH ×2 (03:32→11:34)
[2019-08-08] MEDS: clonazePAM 1 MG TAB PO PRN ×2 (06:18→17:20)
[2019-08-08] MEDS: VANCOMYCIN 1,250 MG in SODIUM CHLORIDE 0.9% 250 ML IVPB SCH ×2 (07:11→16:58)
[2019-08-08] MEDS: amLODIPine 5 MG TAB PO SCH ×2 (07:11→20:36)
[2019-08-08] MEDS: THIAMINE 100 MG TAB PO SCH ×2 (07:11→17:00)
[2019-08-08] MEDS: HEPARIN SODIUM,PORCINE 5,000 UNIT/ML 1 ML VIAL SQ SCH ×2 (07:11→20:37)
[2019-08-08] MEDS: NICOTINE 14MG/24HR PATCH TRANSDERM SCH (07:12)
[2019-08-08 08:20] LABS: Basophils # (A) 0.1 k/uL (0-0.2); Basophils % (A) 1 %; Eosinophils # (A) 0.4 k/uL (0-0.7); Eosinophils % (A) 6 %; HCT 47.3 % (39.0-53.0); HGB 15.7 gm/dL (13.0-17.5); Lymphocytes # (A) 1.1 k/uL (1.0-4.8); Lymphocytes % (A) 14 %; MCH 33.8 pg (25.0-35.0); MCHC 33.2 g/dL (31.0-37.0); MCV 101.7 fL (80.0-100.0); Macrocytosis Slight; Mean Platelet Volume 7.9; Monocytes # (A) 0.4 k/uL (0-1.0); Monocytes % (A) 6 %; Neutrophils # (A) 5.6 k/uL (1.3-7.7); Neutrophils % (A) 73 %; Platelet Count 218 k/uL (150-450); RBC 4.65 m/uL (4.30-5.90); RDW 13.7 % (11.5-15.5); WBC 7.7 k/uL (3.8-10.6)
[2019-08-08 08:39] LABS: ALT 40 U/L (4-49); AST 48 U/L (17-59); African American GFR (CKD) >90 (>60 ml/min/1.73 sqM); Albumin 3.4 g/dL (3.5-5.0); Alkaline Phosphatase 61 U/L (38-126); Anion Gap 9 mmol/L; Blood Urea Nitrogen 11 mg/dL (9-20); Calcium 9.1 mg/dL (8.4-10.2); Carbon Dioxide 21 mmol/L (22-30); Chloride 105 mmol/L (98-107); Glucose 88 mg/dL (74-99); Non-African American GFR(CKD) >90 (>60 ml/min/1.73 sqM); Sodium 135 mmol/L (137-145); Total Protein 6.7 g/dL (6.3-8.2)
[2019-08-08 08:50] LABS: Potassium 3.9 mmol/L (3.5-5.1)
[2019-08-08 09:33] LABS: Erythrocyte Sedimentation Rate 2 mm/hr (0-15)
[2019-08-08 10:02] LABS: C Reactive Protein 5.7 mg/L (<10.0)
--- NOTE | 2019-08-08 13:08 | NM ---
EXAMINATION TYPE: NM bone 3 phase DATE OF EXAM: 08/08/2019 COMPARISON: Prior 3 phase bone scan May 01, 2019. Left leg x-ray from yesterday. HISTORY: Open wound left leg with pain and redness rule out acute osteomyelitis. Triple phase bone scintigraphy was performed following the injection of 23.9 mCi Tc 99m MDP. Immedia te images and 3.5 hours post injection images acquired. Images obtained of the bilateral legs similar to prior. FINDINGS: Dynamic arterial and soft tissue phase images show increased uptake to the left leg versus right leg centered mid shaft level similar to prior. Delayed phase images show increased uptake in the mid to d istal tibial diaphysis at site of malunion fracture similar to prior bone scan. The acute osteomyelit is given three-phase increased radiotracer uptake cannot be excluded at the area of clinical concern. IMPRESSION: As above.
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
[2019-08-08] MEDS: TEMAZEPAM 15 MG CAP PO PRN (20:36)
[2019-08-09] MEDS: VANCOMYCIN 1,250 MG in SODIUM CHLORIDE 0.9% 250 ML IVPB SCH ×4 (00:09→22:51)
[2019-08-09] MEDS: HYDROmorphone 0.5 MG/0.5 ML SYRINGE IVP PRN ×8 (00:09→22:43)
[2019-08-09] MEDS: clonazePAM 1 MG TAB PO PRN ×3 (01:15→22:51)
[2019-08-09] MEDS: SODIUM CHLORIDE 0.9% 1,000 ML IV SCH ×2 (05:06→21:12)
[2019-08-09] MEDS ORDERED: VANCOMYCIN TROUGH DUE 1 EACH MISC MISCELLANE ONE (07:00)
[2019-08-09 07:47] LABS: ALT 41 U/L (4-49); AST 53 U/L (17-59); African American GFR (CKD) >90 (>60 ml/min/1.73 sqM); Albumin 3.8 g/dL (3.5-5.0); Alkaline Phosphatase 78 U/L (38-126); Anion Gap 10 mmol/L; Blood Urea Nitrogen 10 mg/dL (9-20); Calcium 9.5 mg/dL (8.4-10.2); Carbon Dioxide 21 mmol/L (22-30); Chloride 107 mmol/L (98-107); Glucose 93 mg/dL (74-99); Non-African American GFR(CKD) >90 (>60 ml/min/1.73 sqM); Potassium 4.4 mmol/L (3.5-5.1); Sodium 138 mmol/L (137-145); Total Bilirubin 0.6 mg/dL (0.2-1.3)
[2019-08-09] MEDS: HEPARIN SODIUM,PORCINE 5,000 UNIT/ML 1 ML VIAL SQ SCH ×3 (09:16→21:08)
[2019-08-09] MEDS: amLODIPine 5 MG TAB PO SCH ×2 (09:16→21:08)
[2019-08-09] MEDS: NICOTINE 14MG/24HR PATCH TRANSDERM SCH (09:16)
[2019-08-09] MEDS: THIAMINE 100 MG TAB PO SCH ×2 (09:16→16:16)
--- NOTE | 2019-08-09 15:24 | PN ---
PROGRESS NOTE DATE OF SERVICE: 08/09/2019 REASON FOR FOLLOWUP: Left leg nonhealing wound. INTERVAL HISTORY: The patient is currently afebrile. The patient has been breathing comfortably; slightly doses off. Continues complaining of multiple symptoms and is asking for a PICC line so they can go to [facility]dc for the left leg infection. The patient has been complaining of pain to his leg which hasn't changed no vomiting or any diarrhea reported. PHYSICAL EXAMINATION: Blood pressure 123/87 with a pulse of 83, temperature 98.6. He is 95% on room air. General description is a middle-aged male lying in bed in no distress. RESPIRATORY SYSTEM: Unlabored breathing. Clear to auscultation anteriorly. HEART: S1, S2. Regular rate and rhythm. ABDOMEN: Soft. No tenderness. Left leg wound is currently dressed. No drainage on the dressing. LABS/IMAGING: BUN of 10, creatinine 0.60. Vancomycin trough is 20. The patient's CRP is normal at 5.7. Sed rate was 2. Wound culture so far pending. Doppler did show acute osteomyelitis cannot be excluded. DIAGNOSTIC IMPRESSION AND PLAN: Patient with a chronic nonhealing wound to the left leg in this patient who has been treated with multiple courses of antibiotic. Wound this admission does not look significantly inflamed and the patient did have a normal white count, normal sedimentation rate and normal CRP. That would go against acute osteomyelitis. Hence would not recommend any PICC line or outpatient IV antibiotic therapy. Local care to continue with [facility]. Continue with supportive care. MMODL / IJN: [id number] / RAMIN
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
[2019-08-09] MEDS: QUEtiapine 50 MG TAB PO SCH (21:08)
[2019-08-09] MEDS: TEMAZEPAM 15 MG CAP PO PRN (22:51)
[2019-08-10] MEDS: HYDROmorphone 0.5 MG/0.5 ML SYRINGE IVP PRN ×6 (02:14→23:26)
[2019-08-10] MEDS: VANCOMYCIN 1,250 MG in SODIUM CHLORIDE 0.9% 250 ML IVPB SCH ×3 (09:05→23:28)
[2019-08-10] MEDS: NICOTINE 14MG/24HR PATCH TRANSDERM SCH (09:05)
[2019-08-10] MEDS: HEPARIN SODIUM,PORCINE 5,000 UNIT/ML 1 ML VIAL SQ SCH ×2 (09:05→20:26)
[2019-08-10] MEDS: amLODIPine 5 MG TAB PO SCH ×2 (09:06→20:26)
[2019-08-10] MEDS: THIAMINE 100 MG TAB PO SCH ×2 (09:06→16:20)
[2019-08-10] MEDS: clonazePAM 1 MG TAB PO PRN ×2 (10:37→21:48)
[2019-08-10] MEDS: SODIUM CHLORIDE 0.9% 1,000 ML IV SCH ×2 (13:44→21:44)
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
--- NOTE | 2019-08-10 18:37 | PN ---
PROGRESS NOTE DATE OF SERVICE: 08/10/2019 REASON FOR FOLLOWUP: Left leg wound and a question of cellulitis/osteomyelitis. INTERVAL HISTORY: The patient is currently afebrile. Patient is breathing comfortably. He still has multiple complaints. Everything is bothering him including the leg when he was told, the leg pain has improved at the same time when he was told if antibiotics do not help, then they will be discontinued and then he changed his story saying no other back pain has improved. No vomiting or diarrhea has been reported. PHYSICAL EXAMINATION: Blood pressure 110/84 with a pulse of 57, temperature 98.1. He is 94% on room air. General description: The patient is a middle-aged male up in the bed in no distress. Respiratory system: Unlabored breathing. Clear to auscultation. HEART: S1, S2. Regular rate and rhythm. Left leg wound with minimal slough. Some swelling but no redness or any foul-smelling drainage. LABS: BUN of 10, creatinine 0.60. Vanco level therapeutic at 20.1. Wound culture has been negative. Blood cultures are negative. DIAGNOSTIC IMPRESSION AND PLAN: Patient with chronic left leg wound and a question of cellulitis clinically not behaving as such as the patient has no fever, no white count. Sedimentation rate is normal. CRP is normal. Wound culture negative. Recommend local wound care only with [facility]. Antibiotic can be safely discontinued. MMODL / IJN: [id number] /
[2019-08-10] MEDS: QUEtiapine 50 MG TAB PO SCH (20:26)
[2019-08-11] MEDS: HYDROmorphone 0.5 MG/0.5 ML SYRINGE IVP PRN ×7 (02:52→22:38)
[2019-08-11 06:59] LABS: African American GFR (CKD) >90 (>60 ml/min/1.73 sqM); Non-African American GFR(CKD) >90 (>60 ml/min/1.73 sqM)
[2019-08-11] MEDS: NICOTINE 14MG/24HR PATCH TRANSDERM SCH (07:30)
[2019-08-11] MEDS: amLODIPine 5 MG TAB PO SCH ×2 (07:30→21:54)
[2019-08-11] MEDS: HEPARIN SODIUM,PORCINE 5,000 UNIT/ML 1 ML VIAL SQ SCH ×2 (07:30→21:52)
[2019-08-11] MEDS: VANCOMYCIN 1,250 MG in SODIUM CHLORIDE 0.9% 250 ML IVPB SCH ×3 (07:30→23:33)
[2019-08-11] MEDS: THIAMINE 100 MG TAB PO SCH ×2 (07:30→16:12)
[2019-08-11] MEDS: clonazePAM 1 MG TAB PO PRN ×2 (07:30→21:54)
[2019-08-11] MEDS: SODIUM CHLORIDE 0.9% 1,000 ML IV SCH ×2 (16:12→23:37)
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
[2019-08-11] MEDS: QUEtiapine 50 MG TAB PO SCH (22:38)
--- NOTE | 2019-08-11 23:43 | PN ---
PROGRESS NOTE DATE OF SERVICE: 08/11/2019 REASON FOR FOLLOWUP: The left leg wound and a question of cellulitis. INTERIM HISTORY: The patient is currently afebrile. The patient currently complaining of everything bothering him. His main concern is that he did not have any place to go. wants to go to a [facility] to get a PICC line and he has been asking from day one. Continues complaining of pain and discomfort every where and no improvement. PHYSICAL EXAMINATION: Blood pressure 138/94 with a pulse of 84, temperature 98.4. He is 96% on room air. General description is a middle-aged male up in the bed in no distress. RESPIRATORY SYSTEM: Unlabored breathing, clear to auscultation anteriorly. HEART: S1, S2. Regular rate and rhythm. Left leg wound with less slough tissue more granulation tissue. Some swelling but no redness. LABS: Creatinine 0.63. Wound culture has been negative. DIAGNOSTIC IMPRESSION AND PLAN: Patient with left leg wound clinical suspicion low for underlying cellulitis. Culture negative. White count normal. CRP and sedimentation rate normal. Recommend discontinue vancomycin on discharge. Local care to continue with [facility] and [facility] up [facility] once discharged from the hospital. MMODL / IJN: [id number] / RAMIN
[2019-08-12] MEDS: TEMAZEPAM 15 MG CAP PO PRN ×2 (01:40→23:54)
[2019-08-12] MEDS: HYDROmorphone 0.5 MG/0.5 ML SYRINGE IVP PRN ×6 (01:40→20:58)
[2019-08-12] MEDS: NICOTINE 14MG/24HR PATCH TRANSDERM SCH (05:57)
[2019-08-12] MEDS ORDERED: VANCOMYCIN TROUGH DUE 1 EACH MISC MISCELLANE ONE (07:00)
[2019-08-12] MEDS: HEPARIN SODIUM,PORCINE 5,000 UNIT/ML 1 ML VIAL SQ SCH ×2 (07:41→20:58)
[2019-08-12] MEDS: amLODIPine 5 MG TAB PO SCH ×2 (07:41→20:58)
[2019-08-12] MEDS: THIAMINE 100 MG TAB PO SCH ×2 (07:41→17:18)
[2019-08-12] MEDS: clonazePAM 1 MG TAB PO PRN ×2 (07:48→19:26)
[2019-08-12 08:04] LABS: African American GFR (CKD) >90 (>60 ml/min/1.73 sqM); Non-African American GFR(CKD) >90 (>60 ml/min/1.73 sqM)
[2019-08-12] MEDS: VANCOMYCIN 1,250 MG in SODIUM CHLORIDE 0.9% 250 ML IVPB SCH ×3 (09:29→23:32)
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
--- NOTE | 2019-08-12 15:31 | P.CON ---
Consult Note - . Consult date: 08/12/19 Assessment/Plan:: Clinical Problems: Chronic depressive disorder (dysthymia), history of major depressive depressive disorder recurrent, unspecified personality disorder, history of alcohol use disorder, history of opiate use disorder, history of cannabis use disorder Interim history: I reviewed the medical record and interviewed the patient. He was acutely distressed and pain focused. During the interview he called the nurse and requested pain medication. He complains of worsening left leg pain that is only temporary relief with pain medications. He was unable to focus on any topic other than his pain and disability. I reviewed his medical records. He is admitted to the [facility] times between 1988 and 2015. His last admission was in August 2015 he was discharged with diagnoses of major depressive disorder, generalized anxiety disorder, ALCOHOL dependence, cannabis abuse and and antisocial personal disorder. Mental status exam: He presented as a casually groomed 63-year-old male who was sitting uncomfortable in bed. He frequently changed positions. He had to show me his leg and demonstrate the increase in edema and erythema. His speech was spontaneous. His affect was anxious. He denied suicidal ideation or wishes. He ruminated about his pain and his medical treatment. His thinking was concrete. Assessment: He is acutely distressed and pain focused today. Plan: There is no indication for transfer to the psychiatric unit at this time. We'll continue to follow.
--- NOTE | 2019-08-12 19:11 | PN ---
PROGRESS NOTE DATE OF SERVICE: 08/12/2019 REASON FOR FOLLOWUP: Left leg wound and question of cellulitis. INTERVAL HISTORY: The patient is currently afebrile. The patient continues to complain of multiple symptoms and multiple complaints. Everything is bothering him, including his left leg. He is still fighting to go to a detention and get a PICC line, though. No chest pain. No abdominal pain. PHYSICAL EXAMINATION: Blood pressure 146/89 with a pulse of 75, temperature of 98. He is 96% on room air. General description is a middle-aged male up in the bed in no distress. RESPIRATORY SYSTEM: Unlabored breathing. Clear to auscultation anteriorly. HEART: S1, S2. Regular rate and rhythm. ABDOMEN: Soft. No tenderness. Left leg with minimal swelling. Wound is currently dressed. No drainage on the dressing. LABS: Creatinine 0.55. Vancomycin trough is 19.9. Wound culture has been negative. DIAGNOSTIC IMPRESSION AND PLAN: Patient with a left leg wound, chronic. Clinically doubt significant cellulitis. Patient with no white count. CRP and sedimentation rate are normal. Culture has been negative. Local care to continue with Medihoney followed by moist dressing. Antibiotic can be safely discontinued on discharge. Continue with supportive care. MMODL / IJN: [id number] /
[2019-08-12] MEDS: HYDROcodone/APAP 5-325MG 1 EACH TAB PO PRN (19:13)
[2019-08-12] MEDS: SODIUM CHLORIDE 0.9% 1,000 ML IV SCH (20:52)
[2019-08-12] MEDS: QUEtiapine 50 MG TAB PO SCH (22:02)
[2019-08-13] MEDS: HYDROmorphone 0.5 MG/0.5 ML SYRINGE IVP PRN ×2 (01:38→08:10)
[2019-08-13] MEDS: SODIUM CHLORIDE 0.9% 1,000 ML IV SCH (04:39)
[2019-08-13] MEDS: THIAMINE 100 MG TAB PO SCH (08:09)
[2019-08-13] MEDS: clonazePAM 1 MG TAB PO PRN (08:09)
[2019-08-13] MEDS: NICOTINE 14MG/24HR PATCH TRANSDERM SCH (08:09)
[2019-08-13] MEDS: HEPARIN SODIUM,PORCINE 5,000 UNIT/ML 1 ML VIAL SQ SCH (08:09)
[2019-08-13] MEDS: VANCOMYCIN 1,250 MG in SODIUM CHLORIDE 0.9% 250 ML IVPB SCH (08:10)
[2019-08-13] MEDS: amLODIPine 5 MG TAB PO SCH (08:10)
[2019-08-13 08:22] VITALS: BP 142/82; PULSE 83; RESP 18; TEMP 98.4
[2019-08-13] MEDS: HYDROcodone/APAP 5-325MG 1 EACH TAB PO PRN (10:19)
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
--- NOTE | 2019-08-13 14:56 | PN ---
PROGRESS NOTE DATE OF SERVICE: 08/13/2019 REASON FOR FOLLOWUP: Left leg wound and a question of cellulitis. INTERVAL HISTORY: The patient is currently afebrile, patient is breathing comfortably. Still pain and swelling mostly to the left lower leg and the foot area. No chest pain or cough. No pain or diarrhea. PHYSICAL EXAMINATION: Blood pressure 152/82 with a pulse of 80, temperature 98.4, he is 94% on room air. General description is a middle-aged male up in the bed, in no distress. RESPIRATORY SYSTEM, LUNGS: Unlabored breathing, clear to auscultation. HEART: S1, S2. Regular rate. ABDOMEN: Soft. EXTREMITIES: Left leg wound is currently dressed, no drainage on the dressing. Lower leg did have some swelling, no significant redness or warmth. LABS: Creatinine 0.55. Vancomycin trough 19.9. DIAGNOSTIC IMPRESSION AND PLAN: Patient with left leg wound +/- minimal cellulitis, adequately treated. No need for antibiotic on discharge. Local care to continue with Medihoney followed by moist dressing. The patient did have swelling to the left leg. May benefit from a low-dose diuretics on discharge. Patient advised to keep his left leg elevated. However, he does not seem to be compliant with that and the dressing should not be applied tight. MMODL / IJN: [id number] /
== END 2019-08-13 16:04 | DRG 593 ==
LOC: EC 12:03 → SUPCPDRO 12:03 → 4SSUR 14:17
PROVIDERS: ADMIT Hospitalist; ATTEND Hospitalist
PROC: 05HF33Z Insertion of Infusion Device into Left Cephalic Vein, Percutaneous Approach (ICD-10-PCS; principal; 2019-08-10 11:30)
DX: L97.829 Non-pressure chronic ulcer of other part of left lower leg with unspecified severity (principal); L03.116 Cellulitis of left lower limb; F17.200 Nicotine dependence, unspecified, uncomplicated; F41.1 Generalized anxiety disorder; F43.10 Post-traumatic stress disorder, unspecified; F60.9 Personality disorder, unspecified; M19.90 Unspecified osteoarthritis, unspecified site; F34.1 Dysthymic disorder; F41.8 Other specified anxiety disorders; F12.90 Cannabis use, unspecified, uncomplicated; K70.10 Alcoholic hepatitis without ascites; X58.XXXA Exposure to other specified factors, initial encounter; R26.9 Unspecified abnormalities of gait and mobility; R53.1 Weakness; I10 Essential (primary) hypertension; J44.9 Chronic obstructive pulmonary disease, unspecified; Z11.59 Encounter for screening for other viral diseases; Z63.8 Other specified problems related to primary support group; Z82.49 Family history of ischemic heart disease and other diseases of the circulatory system; I25.2 Old myocardial infarction; Z79.899 Other long term (current) drug therapy; Z82.5 Family history of asthma and other chronic lower respiratory diseases; Z88.1 Allergy status to other antibiotic agents; Z87.01 Personal history of pneumonia (recurrent); Z86.14 Personal history of Methicillin resistant Staphylococcus aureus infection; Z90.89 Acquired absence of other organs
CPT/HCPCS: 36410; 36415; 76937; 78315; 80053; 80202; 82565; 83605; 85025; 85652; 86140; 87040; 87070; 87075; 87205; 87635; 93005; 96361; 96374; 96375; 96376; 99285

== ENCOUNTER 2020-08-30 15:30 | Inpatient (IN) | payer MEDICARE, OTHER ==
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
[2020-08-30] MEDS ORDERED: SODIUM CHLORIDE 0.9% 1,000 ML IV STA (15:47)
[2020-08-30 16:18] LABS: Basophils # (A) 0.1 k/uL (0-0.2); Basophils % (A) 1 %; Eosinophils # (A) 0.5 k/uL (0-0.7); Eosinophils % (A) 7 %; HCT 52.8 % (39.0-53.0); HGB 18.5 gm/dL (13.0-17.5); Lymphocytes # (A) 0.9 k/uL (1.0-4.8); Lymphocytes % (A) 14 %; MCH 35.5 pg (25.0-35.0); MCHC 35.1 g/dL (31.0-37.0); MCV 101.1 fL (80.0-100.0); Mean Platelet Volume 7.7; Monocytes # (A) 0.3 k/uL (0-1.0); Monocytes % (A) 5 %; Neutrophils # (A) 4.6 k/uL (1.3-7.7); Neutrophils % (A) 70 %; Platelet Count 200 k/uL (150-450); RBC 5.22 m/uL (4.30-5.90); RDW 12.4 % (11.5-15.5); WBC 6.5 k/uL (3.8-10.6)
[2020-08-30 16:32] LABS: ALT 91 U/L (4-49); AST 197 U/L (17-59); African American GFR (CKD) >90 (>60 ml/min/1.73 sqM); Albumin 4.6 g/dL (3.5-5.0); Alkaline Phosphatase 113 U/L (38-126); Anion Gap 13 mmol/L; Blood Urea Nitrogen 3 mg/dL (9-20); Calcium 9.2 mg/dL (8.4-10.2); Carbon Dioxide 23 mmol/L (22-30); Chloride 102 mmol/L (98-107); Glucose 86 mg/dL (74-99); Magnesium 1.5 mg/dL (1.6-2.3); Non-African American GFR(CKD) >90 (>60 ml/min/1.73 sqM); Potassium 4.3 mmol/L (3.5-5.1); Sodium 138 mmol/L (137-145); Total Bilirubin 2.3 mg/dL (0.2-1.3); Total Protein 7.3 g/dL (6.3-8.2)
[2020-08-30 16:35] LABS: Partial Thromboplastin Time 24.6 sec (22.0-30.0); Prothrombin Time 10.6 sec (9.0-12.0)
[2020-08-30] MEDS ORDERED: SODIUM CHLORIDE 0.9% 500 ML 500 ML IV ONE (17:45)
[2020-08-30] MEDS ORDERED: LORazepam 2 MG/ML INJ IV STA (18:38)
[2020-08-30] MEDS ORDERED: MORPHINE SULFATE 4 MG/ML SYRINGE IVP STA ×2 (18:38→23:30)
--- NOTE | 2020-08-30 20:21 | CT ---
EXAM: CT brain wo con CLINICAL HISTORY: Weakness and frequent falls. COMPARISON: 07/28/2014. TECHNIQUE: Contiguous axial noncontrast images of the brain were obtained. Coronal and sagittal refor mats were generated and reviewed. Automated dose control was used for this exam. FINDINGS: There is no evidence for intracranial hemorrhage, mass effect or midline shift. The white matter is g rossly preserved. Ventricular size and configuration is within normal limits for degree of parenchymal volume. The paranasal sinuses are clear. The mastoid air cells are clear. No evidence for calvarial fracture. There are chronic changes of the right maxillary sinus with moder ate sized mucus retention cyst. There is remote nasal bone deformity. There is also moderate opacific ation of remaining paranasal sinuses. IMPRESSION: No acute intracranial abnormality.
[2020-08-30 20:41] LABS: Appearance,Urine Clear (Clear); Bacteria,Urine Rare /hpf; Bilirubin,Urine Negative (Negative); Blood,Urine Trace (Negative); Color,Urine Yellow; Glucose,Urine (UA) Negative (Negative); Hyaline Casts,Urine 1 /lpf (0-2); Ketones,Urine 1+ (Negative); Leukocyte Esterase,Urine Negative (Negative); Mucus,Urine Rare /hpf; Nitrite,Urine Negative (Negative); Protein,Urine 1+ (Negative); RBC,Urine 5 /hpf (0-5); Specific Gravity,Urine 1.013 (1.001-1.035); Squamous Epithelial Cell,Urine 1 /hpf (0-4); WBC,Urine 2 /hpf (0-5)
[2020-08-30 20:49] LABS: Amphetamine Screen,Urine Not Detected (NotDetected); Barbiturate Screen,Urine Not Detected (NotDetected); Benzodiazepines Screen,Urine Not Detected (NotDetected); Cocaine Screen,Urine Not Detected (NotDetected); Methadone Screen, Urine Not Detected (NotDetected); Opiate Screen,Urine Detected (NotDetected); Oxycodone Screen, Urine Not Detected (NotDetected); Phencyclidine Screen,Urine Not Detected (NotDetected); Tricyclic Antidepressant,Urine Not Detected (NotDetected); Urn Cannabinoid Scrn Detected (NotDetected)
--- NOTE | 2020-08-30 21:28 | CT ---
EXAMINATION TYPE: CT ChestAbdPelvis w con DATE OF EXAM: 08/30/2020 COMPARISON: 04/22/2016 and April 11, 2014 HISTORY: LL Chest/flank pain, frequent falls. CT DLP: 945.9 mGycm Automated exposure control for dose reduction was used. CONTRAST: Performed with IV Contrast, patient injected with 100 mL of Isovue 300. The lungs are clear of infiltrate. There is no pleural effusion. There is mild subsegmental atelectas is right lung base. Heart size is normal. There is no pericardial effusion. There is no mediastinal adenopathy. There are no hilar masses. Thoracic aorta is intact. There is no aneurysm or dissection. I see no filling defects in the pulmonary arteries. There is low attenuation throughout the liver consistent with fatty infiltration. There is irregular enhancing area in the anterior right lobe of the liver consistent with hemangioma. Bile ducts are not dilated. Spleen is intact. There is no pancreatic mass. Pancreas appears normal. Stomach appears int act. There is no adrenal mass. Kidneys show satisfactory contrast opacification. There is no hydronephrosi s. Ureters are not dilated. There is no retroperitoneal adenopathy. There is left lateral abdominal w all hernia contains large amount of perinephric fat.. This is somewhat incarcerated and the hernia sa c measures 7 x 6 cm. The opening is 1.8 cm. Appendix is posterior and appears normal. Bladder distends smoothly. There is prostatic calcification . Prostate measures 5 cm. There is no inguinal hernia. There is no free fluid in the pelvis. Thoracic and lumbar vertebra appear intact. The posterior elements are intact. There is no compressio n fracture. Sternum is intact. The ribs appear intact. IMPRESSION: No acute abnormality of the chest abdomen pelvis. There is clearing of the infiltrate and atelectasis left lower lobe compared to 04/22/2016. There is left lateral abdominal wall hernia not significantly changed in size compared to old exam. Atherosclerotic vascular disease. Fatty infiltration of the liver. Hemangioma in the liver unchanged. No suspicious pulmonary mass. Sig moid diverticulosis without diverticulitis unchanged.
[2020-08-30] MEDS: SODIUM CHLORIDE 0.9% 1,000 ML IV SCH (22:06)
[2020-08-30] MEDS ORDERED: LORazepam 2 MG/ML INJ IV PRN (23:32)
[2020-08-30] MEDS: IBUPROFEN 400 MG TAB PO PRN (23:45)
[2020-08-31 06:58] LABS: Basophils # (A) 0.1 k/uL (0-0.2); Basophils % (A) 1 %; Eosinophils # (A) 0.5 k/uL (0-0.7); Eosinophils % (A) 6 %; HCT 51.6 % (39.0-53.0); HGB 17.9 gm/dL (13.0-17.5); Lymphocytes # (A) 1.6 k/uL (1.0-4.8); Lymphocytes % (A) 19 %; MCH 35.1 pg (25.0-35.0); MCHC 34.7 g/dL (31.0-37.0); MCV 101.1 fL (80.0-100.0); Mean Platelet Volume 7.9; Monocytes # (A) 0.4 k/uL (0-1.0); Monocytes % (A) 5 %; Neutrophils # (A) 5.4 k/uL (1.3-7.7); Neutrophils % (A) 68 %; Platelet Count 186 k/uL (150-450); RBC 5.11 m/uL (4.30-5.90); RDW 12.2 % (11.5-15.5)
[2020-08-31 07:10] LABS: ALT 64 U/L (4-49); AST 138 U/L (17-59); African American GFR (CKD) >90 (>60 ml/min/1.73 sqM); Alkaline Phosphatase 100 U/L (38-126); Anion Gap 7 mmol/L; Blood Urea Nitrogen 4 mg/dL (9-20); Calcium 9.2 mg/dL (8.4-10.2); Carbon Dioxide 25 mmol/L (22-30); Chloride 102 mmol/L (98-107); Glucose 86 mg/dL (74-99); Non-African American GFR(CKD) >90 (>60 ml/min/1.73 sqM); Sodium 134 mmol/L (137-145); Total Bilirubin 3.3 mg/dL (0.2-1.3)
[2020-08-31] MEDS ORDERED: LORazepam 2 MG/ML INJ IV PRN ×2 (08:55)
[2020-08-31] MEDS ORDERED: ASPIRIN 325 MG TAB PO PRN (09:00)
[2020-08-31] MEDS: ACETAMINOPHEN TAB 325 MG TAB PO PRN ×2 (09:27→19:09)
[2020-08-31] MEDS: SODIUM CHLORIDE 0.9% 1,000 ML IV SCH ×2 (09:28→19:09)
[2020-08-31] MEDS: CITALOPRAM HYDROBROMIDE 10 MG TAB PO SCH (10:57)
[2020-08-31] MEDS: PANTOPRAZOLE 40 MG/10 ML VIAL IVP SCH (10:57)
[2020-08-31] MEDS: IBUPROFEN 400 MG TAB PO PRN ×3 (11:03→23:23)
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
[2020-08-31] MEDS: NICOTINE 21MG/24HR PATCH TRANSDERM SCH (14:44)
[2020-08-31] MEDS: LORazepam 2 MG/ML INJ IV PRN ×3 (14:44→23:24)
[2020-09-01] MEDS: LORazepam 2 MG/ML INJ IV PRN (05:25)
[2020-09-01] MEDS: SODIUM CHLORIDE 0.9% 1,000 ML IV SCH ×3 (05:25→23:26)
[2020-09-01] MEDS: ACETAMINOPHEN TAB 325 MG TAB PO PRN ×2 (05:25→17:14)
[2020-09-01] MEDS: PANTOPRAZOLE 40 MG/10 ML VIAL IVP SCH (08:12)
[2020-09-01] MEDS: CITALOPRAM HYDROBROMIDE 10 MG TAB PO SCH (08:13)
[2020-09-01] MEDS: ENOXAPARIN 40 MG/0.4 ML SYRINGE SQ SCH (08:13)
[2020-09-01] MEDS: NICOTINE 21MG/24HR PATCH TRANSDERM SCH (08:13)
[2020-09-01] MEDS: IBUPROFEN 400 MG TAB PO PRN ×2 (11:59→18:02)
[2020-09-01] MEDS: MAGNESIUM SULFATE-D5W PMX 1 GM in DEXTROSE/WATER 1 100ML.BAG IVPB SCH ×2 (13:23→14:23)
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
[2020-09-01] MEDS ORDERED: ONDANSETRON 4 MG/2 ML VIAL IVP PRN (15:00)
[2020-09-01] MEDS ORDERED: clonazePAM 0.5 MG TAB PO STA (17:16)
[2020-09-01] MEDS ORDERED: diphenhydrAMINE 50 MG/ML 1 ML VIAL IVP STA (19:48)
[2020-09-02] MEDS: IBUPROFEN 400 MG TAB PO PRN ×2 (00:22→05:54)
[2020-09-02] MEDS: ACETAMINOPHEN TAB 325 MG TAB PO PRN ×2 (01:46→08:02)
[2020-09-02 07:18] VITALS: RESP 16; TEMP 98.4
[2020-09-02] MEDS: ENOXAPARIN 40 MG/0.4 ML SYRINGE SQ SCH (07:54)
[2020-09-02] MEDS: CITALOPRAM HYDROBROMIDE 10 MG TAB PO SCH (07:54)
[2020-09-02] MEDS: NICOTINE 21MG/24HR PATCH TRANSDERM SCH (07:57)
[2020-09-02 09:35] VITALS: BP 123/82; PULSE 93
[2020-09-02] MEDS: PANTOPRAZOLE 40 MG/10 ML VIAL IVP SCH (09:39)
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
[2020-09-02] MEDS: SODIUM CHLORIDE 0.9% 1,000 ML IV SCH (11:16)
== END 2020-09-02 14:33 | disposition home health service (06) | DRG 897 ==
LOC: EC 15:30 → 6NMEDSUR 21:56 → OBSVTOIN 08-31 13:54
PROVIDERS: ADMIT Internal Medicine; ATTEND Internal Medicine
DX: F10.139 Alcohol abuse with withdrawal, unspecified (principal); E86.0 Dehydration; J44.9 Chronic obstructive pulmonary disease, unspecified; Z20.822 Contact with and (suspected) exposure to COVID-19; F32.9 Major depressive disorder, single episode, unspecified; F43.10 Post-traumatic stress disorder, unspecified; I10 Essential (primary) hypertension; I25.2 Old myocardial infarction; K43.9 Ventral hernia without obstruction or gangrene; I25.10 Atherosclerotic heart disease of native coronary artery without angina pectoris; R29.6 Repeated falls; F12.10 Cannabis abuse, uncomplicated; F17.210 Nicotine dependence, cigarettes, uncomplicated; Z71.6 Tobacco abuse counseling; Z86.14 Personal history of Methicillin resistant Staphylococcus aureus infection; Z86.19 Personal history of other infectious and parasitic diseases; Z90.89 Acquired absence of other organs; Z87.828 Personal history of other (healed) physical injury and trauma; Z98.890 Other specified postprocedural states; Z87.01 Personal history of pneumonia (recurrent); Z88.6 Allergy status to analgesic agent; Z88.1 Allergy status to other antibiotic agents; Z88.0 Allergy status to penicillin; Z88.2 Allergy status to sulfonamides; Z82.49 Family history of ischemic heart disease and other diseases of the circulatory system; Z82.5 Family history of asthma and other chronic lower respiratory diseases; Z83.79 Family history of other diseases of the digestive system; M19.90 Unspecified osteoarthritis, unspecified site
CPT/HCPCS: 36415; 70450; 71260; 74177; 80053; 80306; 81001; 83605; 83735; 83880; 84484; 85025; 85610; 85730; 87635; 93005; 94760; 96361; 96374; 96375; 99285

== ENCOUNTER 2020-09-20 18:10 | Inpatient (IN) | payer MEDICARE, OTHER ==
[2020-09-23 02:45] VITALS: RESP 16
[2020-09-23 14:38] VITALS: BP 159/80; PULSE 58; TEMP 98
== END 2020-09-23 17:39 | DRG 603 ==
LOC: EC 18:10 → 4SSUR 21:32 → OBSVTOIN 09-21 13:18
PROVIDERS: ADMIT Internal Medicine; ATTEND Internal Medicine
DX: L03.116 Cellulitis of left lower limb (principal); F11.20 Opioid dependence, uncomplicated; F13.20 Sedative, hypnotic or anxiolytic dependence, uncomplicated; F43.10 Post-traumatic stress disorder, unspecified; G89.29 Other chronic pain; K43.9 Ventral hernia without obstruction or gangrene; F32.9 Major depressive disorder, single episode, unspecified; F41.0 Panic disorder [episodic paroxysmal anxiety]; K45.8 Other specified abdominal hernia without obstruction or gangrene; Z20.822 Contact with and (suspected) exposure to COVID-19; J44.9 Chronic obstructive pulmonary disease, unspecified; M19.90 Unspecified osteoarthritis, unspecified site; I10 Essential (primary) hypertension; F17.210 Nicotine dependence, cigarettes, uncomplicated; I25.10 Atherosclerotic heart disease of native coronary artery without angina pectoris; I25.2 Old myocardial infarction; Z79.82 Long term (current) use of aspirin; Z79.899 Other long term (current) drug therapy; Z88.1 Allergy status to other antibiotic agents; Z87.01 Personal history of pneumonia (recurrent); Z87.828 Personal history of other (healed) physical injury and trauma
CPT/HCPCS: 36415; 71046; 72050; 74176; 80053; 80202; 82565; 83605; 85025; 85652; 86140; 87040; 87635; 93005; 96360; 96361; 99285

== ENCOUNTER 2020-10-04 20:12 | Emergency (ER) | payer MEDICARE, OTHER ==
[2020-10-04 20:18] VITALS: BP 151/111; PULSE 113; RESP 20; TEMP 99.1
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
== END 2020-10-04 20:36 | disposition home or self-care (01) ==
LOC: EC 20:12
DX: Z02.89 Encounter for other administrative examinations (principal); G89.4 Chronic pain syndrome; M79.89 Other specified soft tissue disorders; I10 Essential (primary) hypertension; J44.9 Chronic obstructive pulmonary disease, unspecified; I25.2 Old myocardial infarction; F32.9 Major depressive disorder, single episode, unspecified; M19.90 Unspecified osteoarthritis, unspecified site; F17.200 Nicotine dependence, unspecified, uncomplicated; F12.90 Cannabis use, unspecified, uncomplicated; F41.9 Anxiety disorder, unspecified; Z79.1 Long term (current) use of non-steroidal anti-inflammatories (NSAID); Z79.82 Long term (current) use of aspirin; Z88.0 Allergy status to penicillin; Z88.1 Allergy status to other antibiotic agents; Z88.2 Allergy status to sulfonamides; Z88.5 Allergy status to narcotic agent; Z88.6 Allergy status to analgesic agent
CPT/HCPCS: 99282

== ENCOUNTER 2020-11-21 11:15 | Inpatient (IN) | payer MEDICARE, OTHER ==
[2020-11-21 11:26] VITALS: RESP 18; TEMP 98.2
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
--- NOTE | 2020-11-21 12:37 | XR ---
EXAMINATION TYPE: XR tibia fibula LT DATE OF EXAM: 11/21/2020 Comparison: 09/21/2020 Clinical History: 64-year-old male drainage Findings: Extensive healed fracture deformity mid tibia and fibula. Cardiac appearing periosteal new bone forma tion along the lateral aspect of the upper half tibia. Healed fracture deformity at this below the fi bular neck as well. There is a medial wall and. Retained skin staple near. At peak of cortical bone n ear the 1 may have some subtle erosion as indicated by the arrow. Suspect healed fracture deformity p osterior malleolus of the distal tibia. Degenerative change at the talonavicular joint. Impression: 1. Extensive chronic fracture deformity with chronic periostitis along the proximal and mid leg. 2. Medial wound. There is a retained skin staple just below the wound. The subcortical bone just lexie cent appears to have developed a subtle erosion. Osteomyelitis here is not excluded.
[2020-11-21] MEDS: CEPHALEXIN 500 MG CAP PO STA ×2 (12:58→12:59)
[2020-11-21 13:38] LABS: Basophils # (A) 0.1 k/uL (0-0.2); Basophils % (A) 1 %; Eosinophils # (A) 0.5 k/uL (0-0.7); Eosinophils % (A) 5 %; HCT 44.7 % (39.0-53.0); HGB 15.4 gm/dL (13.0-17.5); Lymphocytes # (A) 1.5 k/uL (1.0-4.8); Lymphocytes % (A) 16 %; MCH 35.1 pg (25.0-35.0); MCHC 34.3 g/dL (31.0-37.0); MCV 102.3 fL (80.0-100.0); Mean Platelet Volume 9.4; Monocytes # (A) 0.6 k/uL (0-1.0); Monocytes % (A) 6 %; Neutrophils # (A) 6.6 k/uL (1.3-7.7); Neutrophils % (A) 70 %; Platelet Count 195 k/uL (150-450); RBC 4.37 m/uL (4.30-5.90); RDW 12.3 % (11.5-15.5); WBC 9.5 k/uL (3.8-10.6)
[2020-11-21 13:40] LABS: Amphetamine Screen,Urine Not Detected (NotDetected); Barbiturate Screen,Urine Not Detected (NotDetected); Benzodiazepines Screen,Urine Not Detected (NotDetected); Cocaine Screen,Urine Not Detected (NotDetected); Methadone Screen, Urine Not Detected (NotDetected); Opiate Screen,Urine Not Detected (NotDetected); Oxycodone Screen, Urine Not Detected (NotDetected); Phencyclidine Screen,Urine Not Detected (NotDetected); Tricyclic Antidepressant,Urine Not Detected (NotDetected); Urn Cannabinoid Scrn Detected (NotDetected)
[2020-11-21] MEDS ORDERED: VANCOMYCIN IV PER PHARMACY 1 EACH MISC MISCELLANE PRN (13:45)
[2020-11-21] MEDS ORDERED: NALOXONE 0.4 MG/ML 1 ML VIAL IV PRN (13:47)
[2020-11-21] MEDS ORDERED: ONDANSETRON 4 MG/2 ML VIAL IVP PRN (13:47)
[2020-11-21] MEDS ORDERED: ACETAMINOPHEN TAB 325 MG TAB PO PRN (13:47)
[2020-11-21] MEDS ORDERED: VANCOMYCIN 1,500 MG in SODIUM CHLORIDE 0.9% 250 ML IVPB STA (13:51)
[2020-11-21] MEDS ORDERED: SODIUM CHLORIDE 0.9% 1,000 ML IV SCH (14:00)
[2020-11-21 14:52] VITALS: BP 156/87; PULSE 96
[2020-11-21 15:08] LABS: African American GFR (CKD) >90 (>60 ml/min/1.73 sqM); Anion Gap 9 mmol/L; Blood Urea Nitrogen 16 mg/dL (9-20); Carbon Dioxide 22 mmol/L (22-30); Chloride 107 mmol/L (98-107); Glucose 118 mg/dL (74-99); Non-African American GFR(CKD) >90 (>60 ml/min/1.73 sqM); Sodium 138 mmol/L (137-145)
[2020-11-21 15:11] LABS: Potassium 4.3 mmol/L (3.5-5.1)
[2020-11-21] MEDS ORDERED: TEMAZEPAM 15 MG CAP PO PRN (15:39)
[2020-11-21] MEDS ORDERED: THIAMINE 100 MG/ML 2 ML VIAL IM STA (15:40)
[2020-11-21] MEDS ORDERED: LORazepam 2 MG/ML INJ IV PRN ×3 (15:40)
[2020-11-21 16:42] LABS: ALT 21 U/L (4-49); AST 41 U/L (17-59); African American GFR (CKD) >90 (>60 ml/min/1.73 sqM); Albumin 4.4 g/dL (3.5-5.0); Albumin/Globulin Ratio 1.4; Alcohol <10 mg/dL; Alkaline Phosphatase 68 U/L (38-126); Anion Gap 11 mmol/L; Blood Urea Nitrogen 16 mg/dL (9-20); Calcium 10.1 mg/dL (8.4-10.2); Carbon Dioxide 21 mmol/L (22-30); Chloride 106 mmol/L (98-107); Globulin 3.1 g/dL; Glucose 94 mg/dL (74-99); Non-African American GFR(CKD) >90 (>60 ml/min/1.73 sqM); Potassium 4.3 mmol/L (3.5-5.1); Sodium 138 mmol/L (137-145); Total Bilirubin 2.3 mg/dL (0.2-1.3); Total Protein 7.5 g/dL (6.3-8.2)
[2020-11-21] MEDS: HALOPERIDOL LACTATE 5 MG/ML 1 ML VIAL IM PRN ×2 (16:52→20:29)
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
[2020-11-21] MEDS ORDERED: THIAMINE 100 MG TAB PO SCH (17:30)
[2020-11-21] MEDS ORDERED: CEPHALEXIN 500 MG CAP PO SCH (18:00)
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
[2020-11-21] MEDS ORDERED: HEPARIN SODIUM,PORCINE/PF 5,000 UNIT/0.5 ML SYRINGE SQ SCH (21:00)
[2020-11-22] MEDS ORDERED: VANCOMYCIN 1,250 MG in SODIUM CHLORIDE 0.9% 250 ML IVPB SCH ×2
[2020-11-22] MEDS ORDERED: PANTOPRAZOLE 40 MG TABLET PO SCH (07:30)
[2020-11-22] MEDS ORDERED: FOLIC ACID 1 MG TAB PO SCH (12:00)
[2020-11-22] MEDS ORDERED: THIAMINE 100 MG TAB PO ONE (15:56)
== END 2020-11-21 20:59 | DRG 603 ==
LOC: EC 11:15 → 5NMEDONC 13:47
PROVIDERS: ADMIT Hospitalist; ATTEND Hospitalist
DX: L03.116 Cellulitis of left lower limb (principal); F23 Brief psychotic disorder; M86.9 Osteomyelitis, unspecified; F32.9 Major depressive disorder, single episode, unspecified; J44.9 Chronic obstructive pulmonary disease, unspecified; I10 Essential (primary) hypertension; F43.10 Post-traumatic stress disorder, unspecified; Z91.19 Patient's noncompliance with other medical treatment and regimen; K46.9 Unspecified abdominal hernia without obstruction or gangrene; F10.10 Alcohol abuse, uncomplicated; I25.2 Old myocardial infarction; F17.200 Nicotine dependence, unspecified, uncomplicated; M19.90 Unspecified osteoarthritis, unspecified site; Z79.899 Other long term (current) drug therapy; Z87.01 Personal history of pneumonia (recurrent); Z86.19 Personal history of other infectious and parasitic diseases; Z86.14 Personal history of Methicillin resistant Staphylococcus aureus infection; Z87.820 Personal history of traumatic brain injury; Z90.89 Acquired absence of other organs; Z87.828 Personal history of other (healed) physical injury and trauma; Z98.890 Other specified postprocedural states; Z88.1 Allergy status to other antibiotic agents; Z88.5 Allergy status to narcotic agent; Z88.0 Allergy status to penicillin; Z88.2 Allergy status to sulfonamides; Z82.49 Family history of ischemic heart disease and other diseases of the circulatory system; Z82.5 Family history of asthma and other chronic lower respiratory diseases; Z83.79 Family history of other diseases of the digestive system; Z83.3 Family history of diabetes mellitus
CPT/HCPCS: 36415; 80048; 80053; 80306; 80320; 82075; 85025; 99285

== ENCOUNTER 2020-11-21 21:08 | Inpatient (IN) | payer MEDICARE, MEDICAID ==
[2020-11-21] MEDS ORDERED: MAGNESIUM HYDROXIDE 2,400 MG/10 ML CUP PO PRN (21:17)
[2020-11-21] MEDS ORDERED: LORazepam 1 MG TAB PO PRN (21:17)
[2020-11-21] MEDS ORDERED: MAG HYDROX/AL HYDROX/SIMETH 30 ML CUP PO PRN (21:17)
[2020-11-21] MEDS ORDERED: HALOPERIDOL LACTATE 5 MG/ML 1 ML VIAL IM PRN (21:21)
[2020-11-21] MEDS ORDERED: haloperidoL 5 MG TAB PO PRN (21:22)
[2020-11-21] MEDS: LORazepam 2 MG/ML INJ IM PRN (22:09)
--- NOTE | 2020-11-21 23:34 | P.PN ---
Progress Note - Text Progress Note Date: 11/21/20 Patient sedated and could not be evaluated.
[2020-11-22] MEDS: CEPHALEXIN 500 MG CAP PO SCH ×4 (08:06→21:16)
[2020-11-22] MEDS: NICOTINE 21MG/24HR PATCH TRANSDERM SCH (08:43)
[2020-11-22] MEDS ORDERED: NICOTINE 14MG/24HR PATCH TRANSDERM SCH (09:00)
[2020-11-22 09:21] LABS: Basophils # (A) 0.1 k/uL (0-0.2); Basophils % (A) 1 %; Eosinophils # (A) 0.6 k/uL (0-0.7); Eosinophils % (A) 6 %; HGB 17.2 gm/dL (13.0-17.5); Lymphocytes # (A) 1.7 k/uL (1.0-4.8); Lymphocytes % (A) 16 %; MCH 34.5 pg (25.0-35.0); MCHC 33.6 g/dL (31.0-37.0); MCV 102.7 fL (80.0-100.0); Mean Platelet Volume 8.3; Monocytes # (A) 0.6 k/uL (0-1.0); Monocytes % (A) 6 %; Neutrophils # (A) 7.5 k/uL (1.3-7.7); Neutrophils % (A) 70 %; Platelet Count 278 k/uL (150-450); RBC 4.97 m/uL (4.30-5.90); RDW 11.9 % (11.5-15.5); WBC 10.7 k/uL (3.8-10.6)
[2020-11-22 09:42] LABS: ALT 19 U/L (4-49); AST 44 U/L (17-59); African American GFR (CKD) >90 (>60 ml/min/1.73 sqM); Albumin 4.4 g/dL (3.5-5.0); Alkaline Phosphatase 69 U/L (38-126); Anion Gap 11 mmol/L; Blood Urea Nitrogen 11 mg/dL (9-20); Calcium 9.9 mg/dL (8.4-10.2); Carbon Dioxide 20 mmol/L (22-30); Chloride 105 mmol/L (98-107); Glucose 102 mg/dL (74-99); Non-African American GFR(CKD) >90 (>60 ml/min/1.73 sqM); Potassium 4.3 mmol/L (3.5-5.1); Sodium 136 mmol/L (137-145); Total Bilirubin 2.3 mg/dL (0.2-1.3); Total Protein 7.6 g/dL (6.3-8.2)
[2020-11-22] MEDS: ACETAMINOPHEN TAB 325 MG TAB PO PRN (10:12)
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
[2020-11-22] MEDS: IBUPROFEN 600 MG TAB PO SCH ×3 (12:44→21:18)
[2020-11-22 15:27] LABS: Hemoglobin A1C 5.1 % (4.0-6.0)
[2020-11-22] MEDS: LORazepam 2 MG/ML INJ IM PRN (21:29)
[2020-11-22 22:38] LABS: Chol/HDL Ratio 3.22; Cholesterol 161 mg/dL (0-200); LDL Cholesterol,Calculated 92.2 mg/dL (0.0-131.0)
[2020-11-23] MEDS ORDERED: cloNIDine 0.2 MG/24HR PATCH TRANSDERM STA (06:00)
[2020-11-23] MEDS: NICOTINE 21MG/24HR PATCH TRANSDERM SCH (09:25)
[2020-11-23] MEDS: CEPHALEXIN 500 MG CAP PO SCH ×4 (09:26→20:59)
[2020-11-23] MEDS: IBUPROFEN 600 MG TAB PO SCH ×3 (09:26→20:59)
[2020-11-23] MEDS: CITALOPRAM HYDROBROMIDE 20 MG TAB PO SCH (09:27)
--- NOTE | 2020-11-23 09:47 | PN ---
PROGRESS NOTE DATE OF SERVICE: 11/23/2020 CHIEF COMPLAINT: The patient had disorganized behavior and substance use issues, including alcohol and marijuana. INTERVAL HISTORY: Patient has been doing fair. He had a quiet day yesterday. He comes out on the unit. He tends to wander about and stays fairly active, moving himself about in a wheelchair. He had trouble with his left leg with a poorly healing wound. He attended groups. He has been cooperative with care. He slept well last night. Today he has been up. He has a good appetite. He again has been out on the unit. We talked about medication options for the patient, and he was comfortable with being started on Celexa, which he says has helped him in the past. My understanding is that he may be referred for a rehab program once he is discharged from our facility. We will need to better clarify issues with that. In regard to his leg issue, Dr. Hanson indicated when he was discharged from the medical floor on 11/21 that he was cleared for outpatient followup with Dr. Rose. MENTAL STATUS: Patient sat with some restlessness. He gave fairly good eye contact. He responded to questions appropriately. It was noted that he tended to digress quite a bit and would ramble about one issue or another. He talked about his leg. He also talked about different situations he had run into in the past. For the most part, his thoughts were clear. His affect was somewhat intense, his mood mildly elevated. He did not present in a distressed manner. It is uncertain whether he continues to struggle with some delusional thinking. He voiced no thoughts of harm. He was oriented and alert. ASSESSMENT: I will continue the current diagnosis and treatment plan. We will need to do some planning in regard to appropriate outpatient referral. Whether or not he will be going to a rehabilitation program is uncertain at this time. I will start the patient on Celexa 20 mg a day. We will focus on stabilization and discharge planning. MMODL / SAULN: [id number] /
[2020-11-23] MEDS: ACETAMINOPHEN TAB 325 MG TAB PO PRN (22:10)
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
[2020-11-24 06:46] VITALS: RESP 16; TEMP 97.8
[2020-11-24] MEDS: CITALOPRAM HYDROBROMIDE 20 MG TAB PO SCH (08:05)
[2020-11-24] MEDS: IBUPROFEN 600 MG TAB PO SCH ×3 (08:06→19:43)
[2020-11-24] MEDS: CEPHALEXIN 500 MG CAP PO SCH ×4 (08:06→21:18)
[2020-11-24] MEDS: hydroCHLOROthiazide 25 MG TAB PO SCH (08:06)
[2020-11-24] MEDS: NICOTINE 21MG/24HR PATCH TRANSDERM SCH (08:06)
--- NOTE | 2020-11-24 09:03 | PN ---
PROGRESS NOTE DATE OF SERVICE: 11/24/2020. CHIEF COMPLAINT: The patient had disorganized behavior and substance use issues including alcohol and marijuana. INTERVAL HISTORY: Patient has been doing fairly well. He seems to be making progress overall. He had a reasonable day yesterday. He comes out on the unit. He interacts with others. He will make efforts to engage with staff. He attended one group yesterday and seemed to have difficulty in the 9:30 group. He was noted to have descriptors as angry, bizarre, tangential, delusion and aggressive. He slept well last night. Today, he has been up. He seems to be in a calm manner this morning. He talked about discharge planning issues and said he has made contact with his landlord and presumably has things set up to return to his apartment. He was seen by Dr. Del Cid to address his hypertension. Vital signs this morning include BP 158/97, pulse 82 and regular, temp 97.8, respirations 16. The patient tolerates the start of Celexa. MENTAL STATUS: Patient sat without restlessness. He gave fairly good eye contact. He seemed to present in a fairly calm manner. He had attended to personal grooming. He had clear thoughts. He was a little less verbose and did a better job staying on track with the conversation. His affect was in a reasonable range. His mood his mood was slightly elevated. He did not appear to be distressed. He continues to express some delusional thinking. Cognition is clear. He voiced no thoughts of harm. ASSESSMENT: I will continue the current diagnosis and treatment plan. The patient will continue Celexa 20 mg a day. We discussed discharge planning issues. We will have social work clarify followup plans if we can verify housing. I anticipate the patient being discharged tomorrow. MMODL / IJN: [id number] /
[2020-11-24 09:15] VITALS: BP 159/82; PULSE 83
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
[2020-11-24] MEDS ORDERED: traZODone HCL 100 MG TAB PO SCH (21:00)
[2020-11-25] MEDS: IBUPROFEN 600 MG TAB PO SCH (08:24)
[2020-11-25] MEDS: NICOTINE 21MG/24HR PATCH TRANSDERM SCH (08:24)
[2020-11-25] MEDS: CEPHALEXIN 500 MG CAP PO SCH ×2 (08:25→14:31)
[2020-11-25] MEDS: CITALOPRAM HYDROBROMIDE 20 MG TAB PO SCH (08:25)
[2020-11-25] MEDS: hydroCHLOROthiazide 25 MG TAB PO SCH (08:25)
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
== END 2020-11-25 15:30 | disposition home or self-care (01) | DRG 885 ==
LOC: 3MHU 21:08
PROVIDERS: ADMIT Psychiatry & Neurology Psychiatry; ATTEND Psychiatry & Neurology Psychiatry
DX: F23 Brief psychotic disorder (principal); L03.116 Cellulitis of left lower limb; Z91.19 Patient's noncompliance with other medical treatment and regimen; I10 Essential (primary) hypertension; J44.9 Chronic obstructive pulmonary disease, unspecified; Z87.01 Personal history of pneumonia (recurrent); Z86.14 Personal history of Methicillin resistant Staphylococcus aureus infection; F43.10 Post-traumatic stress disorder, unspecified; F10.10 Alcohol abuse, uncomplicated; F17.200 Nicotine dependence, unspecified, uncomplicated; Z82.49 Family history of ischemic heart disease and other diseases of the circulatory system; Z82.5 Family history of asthma and other chronic lower respiratory diseases; Z88.1 Allergy status to other antibiotic agents; Z88.2 Allergy status to sulfonamides; Z88.8 Allergy status to other drugs, medicaments and biological substances; K43.9 Ventral hernia without obstruction or gangrene; I25.2 Old myocardial infarction; Z79.899 Other long term (current) drug therapy; Z87.39 Personal history of other diseases of the musculoskeletal system and connective tissue
CPT/HCPCS: 80053; 80061; 83036; 84443; 85025

== ENCOUNTER 2020-12-04 01:11 | Emergency (ER) | payer MEDICARE, OTHER ==
[2020-12-04 01:25] VITALS: RESP 18
[2020-12-04 03:12] LABS: Basophils % (A) 1 %; Eosinophils # (A) 0.5 k/uL (0-0.7); Eosinophils % (A) 6 %; HCT 42.2 % (39.0-53.0); HGB 14.6 gm/dL (13.0-17.5); Lymphocytes # (A) 1.5 k/uL (1.0-4.8); Lymphocytes % (A) 17 %; MCH 34.8 pg (25.0-35.0); MCHC 34.7 g/dL (31.0-37.0); MCV 100.3 fL (80.0-100.0); Mean Platelet Volume 7.3; Monocytes # (A) 0.6 k/uL (0-1.0); Monocytes % (A) 6 %; Neutrophils # (A) 6.4 k/uL (1.3-7.7); Neutrophils % (A) 69 %; Platelet Count 272 k/uL (150-450); RDW 12.5 % (11.5-15.5); WBC 9.3 k/uL (3.8-10.6)
[2020-12-04 03:43] LABS: African American GFR (CKD) >90 (>60 ml/min/1.73 sqM); Anion Gap 6 mmol/L; Blood Urea Nitrogen 15 mg/dL (9-20); C Reactive Protein 0.7 mg/dL (<1.0); Calcium 10.1 mg/dL (8.4-10.2); Carbon Dioxide 24 mmol/L (22-30); Chloride 105 mmol/L (98-107); Glucose 104 mg/dL (74-99); Non-African American GFR(CKD) >90 (>60 ml/min/1.73 sqM); Potassium 3.8 mmol/L (3.5-5.1); Sodium 135 mmol/L (137-145)
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
[2020-12-04 04:42] VITALS: BP 162/84; PULSE 66; TEMP 97.9
== END 2020-12-04 04:35 | disposition home or self-care (01) ==
LOC: EC 01:11
DX: M79.89 Other specified soft tissue disorders (principal); J44.9 Chronic obstructive pulmonary disease, unspecified; I10 Essential (primary) hypertension; I25.2 Old myocardial infarction; M19.90 Unspecified osteoarthritis, unspecified site; F32.9 Major depressive disorder, single episode, unspecified; F41.9 Anxiety disorder, unspecified; F12.90 Cannabis use, unspecified, uncomplicated; F17.200 Nicotine dependence, unspecified, uncomplicated
CPT/HCPCS: 36415; 80048; 85025; 86140; 87040; 99283

== ENCOUNTER 2020-12-07 09:53 | Emergency (ER) | payer MEDICARE, OTHER ==
[2020-12-07 10:01] VITALS: PULSE 78; TEMP 97.6
[2020-12-07] MEDS ORDERED: SODIUM CHLORIDE 0.9% 1,000 ML IV STA (11:09)
[2020-12-07 11:41] LABS: ALT 18 U/L (4-49); AST 35 U/L (17-59); African American GFR (CKD) >90 (>60 ml/min/1.73 sqM); Albumin 4.3 g/dL (3.5-5.0); Alkaline Phosphatase 89 U/L (38-126); Anion Gap 10 mmol/L; Appearance,Urine Clear (Clear); Bilirubin,Urine Negative (Negative); Blood Urea Nitrogen 3 mg/dL (9-20); Blood,Urine Negative (Negative); Calcium 9.9 mg/dL (8.4-10.2); Carbon Dioxide 23 mmol/L (22-30); Chloride 105 mmol/L (98-107); Color,Urine Colorless; Glucose 104 mg/dL (74-99); Glucose,Urine (UA) Negative (Negative); Ketones,Urine Negative (Negative); Leukocyte Esterase,Urine Negative (Negative); Nitrite,Urine Negative (Negative); Non-African American GFR(CKD) >90 (>60 ml/min/1.73 sqM); PH, Urine 6.5 (5.0-8.0); Potassium 3.9 mmol/L (3.5-5.1); Protein,Urine Negative (Negative); Sodium 138 mmol/L (137-145); Specific Gravity,Urine 1.001 (1.001-1.035); Total Bilirubin 0.7 mg/dL (0.2-1.3); Total Protein 7.3 g/dL (6.3-8.2); Urobilinogen,Urine <2.0 mg/dL (<2.0)
[2020-12-07 11:50] LABS: Basophils % (A) 0 %; Eosinophils # (A) 0.1 k/uL (0-0.7); Eosinophils % (A) 1 %; HCT 47.1 % (39.0-53.0); HGB 16.3 gm/dL (13.0-17.5); Lymphocytes # (A) 0.9 k/uL (1.0-4.8); Lymphocytes % (A) 8 %; MCH 35.1 pg (25.0-35.0); MCHC 34.5 g/dL (31.0-37.0); MCV 101.7 fL (80.0-100.0); Macrocytosis Slight; Mean Platelet Volume 8.7; Monocytes # (A) 0.6 k/uL (0-1.0); Monocytes % (A) 5 %; Neutrophils # (A) 9.5 k/uL (1.3-7.7); Neutrophils % (A) 85 %; Platelet Count 256 k/uL (150-450); RBC 4.63 m/uL (4.30-5.90); RDW 13.3 % (11.5-15.5); WBC 11.2 k/uL (3.8-10.6)
--- NOTE | 2020-12-07 12:04 | XR ---
Left leg HISTORY: Pain and swelling 2 views of the left leg correlated prior exam 11/21/2020 Distortion is showing similar appearance. There is a surgical staple present overlying the mid left t ibia medially as on prior, small focus of bone erosion is noted the site as on prior. Postop change n oted with a screw across the proximal metaphyseal left fibula. Possible heterotopic new bone along th e interosseous membrane region. Sclerosis and cortical thickening is again seen at the site of patien t's previous fractures. Deformity the soft tissues is again noted. This calcification along the media l aspect of the proximal tibia within the soft tissues as on prior. IMPRESSION: There is no significant interval change. Correlate for chronic osteomyelitis.
[2020-12-07 12:42] VITALS: BP 145/77; RESP 20
[2020-12-07 14:04] LABS: Amphetamine Screen,Urine Not Detected (NotDetected); Barbiturate Screen,Urine Not Detected (NotDetected); Benzodiazepines Screen,Urine Not Detected (NotDetected); Cocaine Screen,Urine Detected (NotDetected); Methadone Screen, Urine Not Detected (NotDetected); Opiate Screen,Urine Not Detected (NotDetected); Oxycodone Screen, Urine Not Detected (NotDetected); Phencyclidine Screen,Urine Not Detected (NotDetected); Tricyclic Antidepressant,Urine Not Detected (NotDetected); Urn Cannabinoid Scrn Detected (NotDetected)
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
== END 2020-12-07 14:50 | disposition home or self-care (01) ==
LOC: EC 09:53
DX: M79.605 Pain in left leg (principal); I10 Essential (primary) hypertension; I25.2 Old myocardial infarction; M19.90 Unspecified osteoarthritis, unspecified site; G89.29 Other chronic pain; J45.909 Unspecified asthma, uncomplicated; F41.9 Anxiety disorder, unspecified; F32.9 Major depressive disorder, single episode, unspecified; F43.12 Post-traumatic stress disorder, chronic; F12.90 Cannabis use, unspecified, uncomplicated; F17.200 Nicotine dependence, unspecified, uncomplicated; Z88.1 Allergy status to other antibiotic agents; Z88.2 Allergy status to sulfonamides; Z88.5 Allergy status to narcotic agent; Z90.89 Acquired absence of other organs; Z88.6 Allergy status to analgesic agent
CPT/HCPCS: 36415; 80053; 80306; 81003; 82075; 83605; 85025; 96360; 99283

== ENCOUNTER 2020-12-08 03:32 | Emergency (ER) | payer MEDICARE, OTHER ==
[2020-12-08 03:41] VITALS: BP 127/81; PULSE 76; RESP 22; TEMP 97.9
--- NOTE | 2020-12-08 04:38 | CT ---
EXAMINATION TYPE: CT cervical spine wo con DATE OF EXAM: 12/08/2020 COMPARISON: 07/05/2014 HISTORY: fall CT DLP: 396.4 mGycm Automated exposure control for dose reduction was used. Cervical vertebra have normal alignment. There is anterior bridging osteophyte formation from C4 to C 7. Posterior elements are intact. Facet joints are intact. There is no compression fracture. There is no cervical paraspinal mass. IMPRESSION: Hypertrophic degenerative disc changes in the mid and lower cervical spine. No fracture. Spurring is increased slightly compared to old exam.
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
== END 2020-12-08 05:20 | disposition home or self-care (01) ==
LOC: EC 03:32
DX: M54.2 Cervicalgia (principal); L97.829 Non-pressure chronic ulcer of other part of left lower leg with unspecified severity; J45.909 Unspecified asthma, uncomplicated; I10 Essential (primary) hypertension; I25.2 Old myocardial infarction; M19.90 Unspecified osteoarthritis, unspecified site; F41.9 Anxiety disorder, unspecified; F32.9 Major depressive disorder, single episode, unspecified; F43.12 Post-traumatic stress disorder, chronic; F17.200 Nicotine dependence, unspecified, uncomplicated; F12.90 Cannabis use, unspecified, uncomplicated; Z88.2 Allergy status to sulfonamides; Z88.1 Allergy status to other antibiotic agents; Z88.6 Allergy status to analgesic agent; Z90.89 Acquired absence of other organs
CPT/HCPCS: 72125; 99283

== ENCOUNTER 2020-12-12 03:45 | Emergency (ER) | payer MEDICARE, OTHER ==
[2020-12-12 03:55] VITALS: BP 159/87; PULSE 67; RESP 18; TEMP 98
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
== END 2020-12-12 04:02 | disposition home or self-care (01) ==
LOC: EC 03:45
DX: R41.82 Altered mental status, unspecified (principal); F39 Unspecified mood [affective] disorder; I10 Essential (primary) hypertension; J44.9 Chronic obstructive pulmonary disease, unspecified; M19.90 Unspecified osteoarthritis, unspecified site; I25.2 Old myocardial infarction; F17.200 Nicotine dependence, unspecified, uncomplicated; F41.9 Anxiety disorder, unspecified; F32.9 Major depressive disorder, single episode, unspecified; F43.10 Post-traumatic stress disorder, unspecified; F12.90 Cannabis use, unspecified, uncomplicated; F10.10 Alcohol abuse, uncomplicated; Z59.0 Homelessness
CPT/HCPCS: 99283

== ENCOUNTER 2020-12-14 23:42 | Inpatient (IN) | payer MEDICARE, OTHER ==
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
[2020-12-15] MEDS ORDERED: MORPHINE SULFATE 4 MG/ML SYRINGE IV STA (01:25)
[2020-12-15] MEDS ORDERED: SODIUM CHLORIDE 0.9% 1,000 ML IV STA (01:25)
[2020-12-15] MEDS ORDERED: LORazepam 2 MG/ML INJ IV STA (01:26)
[2020-12-15] MEDS ORDERED: diphenhydrAMINE 50 MG/ML 1 ML VIAL IVP STA (01:26)
[2020-12-15] MEDS ORDERED: CLINDAMYCIN 600 MG in DEXTROSE 5% IN WATER 50 ML IVPB STA ×2 (01:27)
[2020-12-15] MEDS ORDERED: MEROPENEM 2 GM in SODIUM CHLORIDE 0.9% 100 ML IVPB STA (01:28)
[2020-12-15 02:13] LABS: Basophils % (A) 0 %; Eosinophils # (A) 0.2 k/uL (0-0.7); Eosinophils % (A) 3 %; HCT 45.1 % (39.0-53.0); Lymphocytes # (A) 1.4 k/uL (1.0-4.8); Lymphocytes % (A) 18 %; MCH 33.6 pg (25.0-35.0); MCHC 33.3 g/dL (31.0-37.0); MCV 100.9 fL (80.0-100.0); Mean Platelet Volume 7.7; Monocytes # (A) 0.6 k/uL (0-1.0); Monocytes % (A) 7 %; Neutrophils # (A) 5.3 k/uL (1.3-7.7); Neutrophils % (A) 69 %; Platelet Count 281 k/uL (150-450); RBC 4.47 m/uL (4.30-5.90); RDW 13.1 % (11.5-15.5); WBC 7.6 k/uL (3.8-10.6)
[2020-12-15] MEDS ORDERED: NALOXONE 0.4 MG/ML 1 ML VIAL IV PRN (02:16)
[2020-12-15] MEDS ORDERED: ONDANSETRON 4 MG/2 ML VIAL IVP PRN (02:16)
[2020-12-15] MEDS ORDERED: LORazepam 2 MG/ML INJ IV PRN (02:18)
[2020-12-15 02:21] LABS: ALT 19 U/L (4-49); AST 40 U/L (17-59); African American GFR (CKD) >90 (>60 ml/min/1.73 sqM); Albumin 3.8 g/dL (3.5-5.0); Alcohol <10 mg/dL; Alkaline Phosphatase 75 U/L (38-126); Anion Gap 5 mmol/L; Blood Urea Nitrogen 10 mg/dL (9-20); C Reactive Protein 1.8 mg/dL (<1.0); Calcium 9.8 mg/dL (8.4-10.2); Carbon Dioxide 26 mmol/L (22-30); Chloride 104 mmol/L (98-107); Creatine Kinase 189 U/L (55-170); Glucose 102 mg/dL (74-99); Lipase 140 U/L (23-300); Magnesium 1.5 mg/dL (1.6-2.3); Non-African American GFR(CKD) >90 (>60 ml/min/1.73 sqM); Phosphorus 3.5 mg/dL (2.5-4.5); Potassium 3.7 mmol/L (3.5-5.1); Sodium 135 mmol/L (137-145); Total Bilirubin 0.7 mg/dL (0.2-1.3); Total Protein 6.7 g/dL (6.3-8.2)
[2020-12-15 02:36] LABS: Prothrombin Time 10.7 sec (9.0-12.0)
[2020-12-15] MEDS: SODIUM CHLORIDE 0.9% 1,000 ML IV SCH ×3 (02:40→18:26)
[2020-12-15 04:29] LABS: Erythrocyte Sedimentation Rate 14 mm/hr (0-15)
[2020-12-15 08:49] LABS: Appearance,Urine Clear (Clear); Bilirubin,Urine Negative (Negative); Blood,Urine Negative (Negative); Color,Urine Light Yellow; Glucose,Urine (UA) Negative (Negative); Ketones,Urine Negative (Negative); Leukocyte Esterase,Urine Negative (Negative); Nitrite,Urine Negative (Negative); Protein,Urine Negative (Negative); Urobilinogen,Urine <2.0 mg/dL (<2.0)
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
[2020-12-15] MEDS: HEPARIN SODIUM,PORCINE/PF 5,000 UNIT/0.5 ML SYRINGE SQ SCH ×2 (09:20→21:58)
[2020-12-15] MEDS: PANTOPRAZOLE 40 MG/10 ML VIAL IV SCH (09:20)
[2020-12-15] MEDS: hydroCHLOROthiazide 25 MG TAB PO SCH (09:20)
[2020-12-15] MEDS: CITALOPRAM HYDROBROMIDE 20 MG TAB PO SCH (09:21)
--- NOTE | 2020-12-15 10:25 | XR ---
EXAMINATION TYPE: XR hand complete LT DATE OF EXAM: 12/15/2020 COMPARISON: NONE HISTORY: pain TECHNIQUE: Two views are submitted. FINDINGS: The osseous structures are intact. The joint spaces are preserved and there is no acute fracture or dislocation. IMPRESSION: 1. No definite acute fracture or dislocation if symptoms persist, follow-up study in 7 to 10 days wo uld be suggested
[2020-12-15] MEDS ORDERED: CLINDAMYCIN 300 MG in DEXTROSE 5% IN WATER 50 ML IVPB SCH ×2 (11:00)
[2020-12-15] MEDS ORDERED: VANCOMYCIN IV PER PHARMACY 1 EACH MISC MISCELLANE PRN (12:16)
[2020-12-15] MEDS ORDERED: VANCOMYCIN 1,500 MG in SODIUM CHLORIDE 0.9% 250 ML IVPB ONE (12:45)
[2020-12-15] MEDS: MORPHINE SULFATE 4 MG/ML SYRINGE IV PRN ×3 (13:00→23:04)
[2020-12-15] MEDS ORDERED: HALOPERIDOL LACTATE 5 MG/ML 1 ML VIAL IM PRN (13:13)
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
[2020-12-15] MEDS: LORazepam 2 MG/ML INJ IM PRN ×2 (16:12→23:10)
[2020-12-15] MEDS ORDERED: traZODone HCL 100 MG TAB PO SCH (21:00)
[2020-12-15] MEDS ORDERED: PALIPERIDONE 3 MG TAB.ER.24 PO SCH (21:00)
[2020-12-15] MEDS: VANCOMYCIN 1,500 MG in SODIUM CHLORIDE 0.9% 250 ML IVPB SCH (21:55)
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
[2020-12-16] MEDS: SODIUM CHLORIDE 0.9% 1,000 ML IV SCH ×4 (02:10→19:47)
[2020-12-16] MEDS: MORPHINE SULFATE 4 MG/ML SYRINGE IV PRN ×4 (05:39→19:25)
[2020-12-16] MEDS: VANCOMYCIN 1,500 MG in SODIUM CHLORIDE 0.9% 250 ML IVPB SCH ×3 (05:45→19:42)
[2020-12-16] MEDS: LORazepam 2 MG/ML INJ IM PRN (06:27)
[2020-12-16] MEDS: PANTOPRAZOLE 40 MG/10 ML VIAL IV SCH (08:13)
[2020-12-16] MEDS: HEPARIN SODIUM,PORCINE/PF 5,000 UNIT/0.5 ML SYRINGE SQ SCH ×2 (08:14→19:19)
[2020-12-16] MEDS: CITALOPRAM HYDROBROMIDE 20 MG TAB PO SCH (08:14)
[2020-12-16] MEDS: hydroCHLOROthiazide 25 MG TAB PO SCH (08:14)
[2020-12-16 09:20] LABS: Basophils # (A) 0.03 X 10*3/uL (0.00-0.10); Basophils % (A) 0.6 %; Eosinophils # (A) 0.24 X 10*3/uL (0.04-0.35); Eosinophils % (A) 4.5 %; HCT 47.2 % (39.6-50.0); HGB 15.6 g/dL (13.0-17.0); Lymphocytes # (A) 0.82 X 10*3/uL (0.90-5.00); Lymphocytes % (A) 15.5 %; MCH 33.3 pg (27.0-32.0); MCHC 33.1 g/dL (32.0-37.0); MCV 100.6 fL (80.0-97.0); Mean Platelet Volume 10.9 fL (9.5-12.2); Monocytes # (A) 0.53 X 10*3/uL (0.20-1.00); Neutrophils # (A) 3.67 X 10*3/uL (1.80-7.70); Neutrophils % (A) 69.2 %; Platelet Count 217 X 10*3/uL (140-440); RBC 4.69 X 10*6/uL (4.40-5.60); RDW 13.3 % (11.5-14.5)
[2020-12-16 10:56] LABS: Albumin 4.1 g/dL (3.80-4.90); Albumin/Globulin Ratio 1.64 (1.60-3.17); Anion Gap 10.1 mmol/L (4.00-12.00); BUN/Creat Ratio 12.22 Ratio (12.00-20.00); Calcium 8.9 mg/dL (8.7-10.3); Carbon Dioxide 21.9 mmol/L (21.6-31.8); Globulin 2.5 g/dL (1.6-3.3); Magnesium 1.4 mg/dL (1.5-2.4); Non-African American GFR(CKD) 90.6 (60.0-200.0); Phosphorus 2.7 mg/dL (2.4-5.1); Potassium 4.2 mmol/L (3.5-5.5); Total Bilirubin 0.8 mg/dL (0.3-1.2); Total Protein 6.6 g/dL (6.2-8.2)
[2020-12-16] MEDS ORDERED: VANCOMYCIN TROUGH DUE 1 EACH MISC MISCELLANE ONE (12:00)
[2020-12-16] MEDS ORDERED: Magnesium Replacement Protocol 1 EACH MISC MISCELLANE PRN (12:52)
--- NOTE | 2020-12-16 12:58 | P.PN ---
Subjective This is a pleasant 65 years old male with past medical history of asthma/COPD, hypertension, osteoarthritis, anxiety and depression. Patient also is a known to be homeless with substance and abuse with psychiatric illness Patient comes with pain and Magers to the left leg. He was recently discharged from the hospital on 09/23/20 for left lower extremity cellulitis where he was treated with vancomycin. And he was discharge on oral doxycycline. This time patient presents with left leg cellulitis, patient reports in maggots and his wound. Also patient complains from some pain and tenderness in his left hand with no further details. During the conversation patient started talking rapidly about some women and unrelated subjects pt got angry very quickly and he refused to cooperate with further vitals are stable and patient is afebrile. Patient has unremarkable CBC, BMP and liver enzymes. Magnesium is 1.5 which is a slightly low. Brain is negative with less than 0.012. Lipase is normal at 140 and serum alcohol level is less than 10 EKG showed normal sinus rhythm at [address]PM with no significant [address]-T changes. On admission he was given clindamycin, and 1 dose of meropenem, Protonix and normal saline at 1 30 mL/h Infectious disease team and psychiatry were consulted for psychosis 12/16/2020 Patient is more calm and appropriate today although he still mildly agitated at times. He is awake and alert oriented to time place and person and to the surrounding, no evidence SIDE TO IDEATION OR HOMICIDAL THINKING. VITALS AND LABS ARE STABLE. HE REMAINS ON IV VANCOMYCIN PER ID TEAM RECOMMENDATION AND LEFT LEG WOUND CULTURE IS STILL PENDING. PSYCHIATRIC INPUT IS IT IS APPRECIATED HE WAS STARTED ON inVega Objective - Vital Signs Vital signs: Vital Signs Temp 97.7 F 12/16/20 12:12 Pulse 105 H 12/16/20 12:12 Resp 16 12/16/20 06:00 BP 124/74 12/16/20 12:12 Pulse Ox 96 12/16/20 12:12 Intake & Output 12/15/20 12/16/20 12/16/20 18:59 06:59 18:59 Other: Voiding Method Toilet Urinal - Exam GENERAL: The patient is alert and oriented x3, not in any acute distress. Well developed, well nourished. HEENT: Pupils are round and equally reacting to light. EOMI. No scleral icterus. No conjunctival pallor. Normocephalic, atraumatic. No pharyngeal erythema. No thyromegaly. CARDIOVASCULAR: S1 and S2 present. No murmurs, rubs, or gallops. PULMONARY: Chest is clear to auscultation, no wheezing or crackles. ABDOMEN: Soft, nontender, nondistended, normoactive bowel sounds. No palpable organomegaly. MUSCULOSKELETAL: No joint swelling or deformity. -EXTREMITIES: No cyanosis, clubbing, or pedal edema. Left leg cellulitis with deformity and open vertical wound NEUROLOGICAL: Gross neurological examination did not reveal any focal deficits. SKIN: No rashes. No petechiae Psychiatric: Patient has flight of ideas, the width and related subject. In he is talking about millionths of maggots in his left leg - Labs CBC & Chem 7: 12/16/20 05:37 12/16/20 05:37 Labs: Abnormal Lab Results - Last 24 Hours (Table) 12/16/20 12/16/20 Range/Units 05:37 05:37 MCV 100.6 H (80.0-97.0) fL MCH 33.3 H (27.0-32.0) pg Lymphocytes # 0.82 L (0.90-5.00) X 10*3/uL Glucose 122 H (70-110) mg/dL Magnesium 1.4 L (1.5-2.4) mg/dL AST 41 H (14-35) U/L Microbiology - Last 24 Hours (Table) 12/15/20 01:43 Blood Culture - Preliminary Blood No Growth after 24 hours 12/15/20 10:00 Gram Stain - Preliminary Leg - Left Wound Culture - Preliminary 12/15/20 10:00 Anaerobic Culture - Preliminary Leg - Left Assessment and Plan Assessment: recurrent Left lower extremity cellulitis Left leg wound with chronic fibrous tissue and deformity in his left leg. There is also some purulent discharge acute psychosis , nonspecified associated with substance abuse: Cannabis and alcohol Nicotine dependence Asthma/COPD, not an active issue Hypertension Osteoarthritis History of anxiety and depression, not an active issue Plan: this is a pleasant 65 years old male who presents with left leg cellulitis Sent for wound culture Continue with vancomycin per ID team recommendation Psychiatry team consult. Continue with inVega and trazodone as needed for insomnia barrow worker helper consult Labs and medication were reviewed.. Continue same treatment. Continue with symptomatic treatment. Resume home medication. Monitor lytes and vitals. DVT and GI prophylaxis. Further recommendationsas per clinical course of the patient DVT prophylaxis: Subcutaneous heparin GI Prophylaxis: Ppi PT/OT: Pending Prognosis is guarded
--- NOTE | 2020-12-16 13:21 | PN ---
PROGRESS NOTE DATE OF SERVICE: 12/16/2020 REASON FOR FOLLOWUP: Left lower extremity wound cellulitis. INTERVAL HISTORY: Patient is afebrile. The patient is more awake and alert today. Denies having any chest pain, shortness of breath or cough. Still complains of pain to the left lower extremity. No vomiting or diarrhea. PHYSICAL EXAMINATION: Blood pressure 124/74 with a pulse of 105. Temperature 97.7. He is 96% on room air. General description is a middle-aged male up in the bed in no distress. Respiratory system: Unlabored breathing. Left leg is currently dressed. Minimal drainage on the dressing. LABS: Hemoglobin is 15.1, white count of 5.3, BUN of 11, creatinine 0.9. Blood culture negative. Local cultures currently pending. DIAGNOSTIC IMPRESSION AND PLAN: Patient with left lower extremity wound with secondary cellulitis. Cultures currently pending. Continue the vancomycin adjusting antibiotic further based on culture report. Continue supportive care. MMODL / IJN: [id number] /
--- NOTE | 2020-12-16 13:48 | P.PN ---
Progress Note - Text Progress Note Date: 12/16/20 Interval History: Patient was seen today for patient's psychiatric condition had psychotic behvr and agitation. Patient's nurse had no significant complaints of a patient and that she believes he is doing fairly well today. She also claims that he has been taking his medications. Patient was seen at the bedside today and was initially sleeping however was awoken by verse writer. He appeared to be apologetic at first about his behavior yesterday and states that he is feeling irritable. She spoke about doing better in terms of his mood however complained of anxiety. He states that he is "losing my voice" and had a coughing spell several times during the interview and states that "this is all new". He appeared to be less irritable today however continues to endorse significant paranoia and possible delusions. He asked if verse writer was working for the police and why he wants to know information about him and going to longterm. He also asked about potential cameras in the room that were watching them. He also opened up a sugar packet and started examining the sugar and asking if it was poison. He has chronically poor insight into his condition. He states that he did not sleep well last night. At this time patient denies any suicidal or homical ideations, intent or plan. Patient denies any auditory, visual hallucinations. Patient denies any side effects from the medications and has been compliant with meds. Mental Status Exam: General Appearance: Patient appears to be disheveled, long diaz and hair, older than stated age is lethargic, mildly more cooperative today. Paranoid. Patient appears to have poor hygiene and grooming wearing hospital gown with poor eye contact. Behavior: Patient is agitated at times and uncooperative. Paranoid. Speech: Patient's speech is more fluent today and more organized. Mood/Affect: Patient reports their mood is "not good", affect is congruent Suicidality/Homicidality: Patient denies having any suicidal or homicidal ideation intent or plan. Perceptions: Patient denies any visual hallucinations and denies any auditory hallucinations Though content/process: Rambles, tangential. Loose associations. paranoia. delusional Memory and concentration: AOX3, grossly intact for the purposes of this session. Judgment and insight: poor Assessment Psychosis unspecified History of depressive disorder Cannabis use disorder Alcohol abuse Nicotine dependence Plan: -Delirium precautions recommended with patient including - avoiding use of narcotics and GAS COMPRESSOR TURBINE OPERATOR sedatives, limit anticholinergic medications when possible, frequent re-orientation, minimize use of restraints, open window shades during the day and close them at night -Would recommend the following medication changes/additions: increase paliperidone by mouth 6 mg daily at bedtime for psychosis/mood stabilization. increase Celexa 30 mg daily for mood/anxiety. Trazodone 50 mg daily at bedtime when necessary for insomnia. added PRN Haldol and Ativan as needed for agitation/psychosis -WA protocol with PRN Ativan for alcohol withdrawal. Continue to monitor vital signs. -At this time patient is not endorsing any suicidal thoughts or gestures, however if this does occur or patient becomes more disorganized and aggressive then he may need a sitter at that time for safety. -Psychiatry will continue to follow along and possibly decide to admit patient to psychiatric unit if needed. -Communicated plan to patient's nurse -Please contact with any questions.
[2020-12-16] MEDS: LORazepam 2 MG/ML INJ IV PRN ×2 (16:12→22:25)
[2020-12-16] MEDS: traZODone HCL 50 MG TAB PO PRN (19:42)
[2020-12-16] MEDS: PALIPERIDONE 6 MG TAB.ER.24 PO SCH (19:42)
[2020-12-17] MEDS: MORPHINE SULFATE 4 MG/ML SYRINGE IV PRN ×5 (01:08→21:51)
[2020-12-17] MEDS: LORazepam 2 MG/ML INJ IV PRN ×3 (04:40→20:57)
[2020-12-17] MEDS: VANCOMYCIN 1,500 MG in SODIUM CHLORIDE 0.9% 250 ML IVPB SCH ×3 (04:40→20:57)
[2020-12-17 05:52] LABS: African American GFR (CKD) >90 (>60 ml/min/1.73 sqM); Magnesium 1.5 mg/dL (1.6-2.3); Non-African American GFR(CKD) >90 (>60 ml/min/1.73 sqM)
[2020-12-17] MEDS: PANTOPRAZOLE 40 MG TABLET PO SCH (07:55)
[2020-12-17] MEDS: hydroCHLOROthiazide 25 MG TAB PO SCH (09:43)
[2020-12-17] MEDS: CITALOPRAM HYDROBROMIDE 20 MG TAB PO SCH (09:43)
[2020-12-17] MEDS: HEPARIN SODIUM,PORCINE/PF 5,000 UNIT/0.5 ML SYRINGE SQ SCH ×2 (09:43→20:01)
[2020-12-17] MEDS: SODIUM CHLORIDE 0.9% 1,000 ML IV SCH ×2 (09:53→16:53)
--- NOTE | 2020-12-17 12:27 | P.PN ---
Progress Note - Text Progress Note Date: 12/17/20 Interval History: Patient was seen today for patient's psychiatric condition had psychotic behvr and agitation. Patient's nurse claims that patient has been rambling and disorganized at times however has been more cooperative today. Patient was seen today sitting in his chair beside his bed and was agreeable to speak to assembly instructions writer. He appears to have good improvement in his irritability is not displaying any agitation. He was fairly cooperative and had a calmer demeanor today. He states that his sleep was fair last night and is denying any problems with his medications. He claimed that he did have a fall yesterday when he came up from the ER as he is being moved however claims that he is also experiencing some pain from his leg wound. 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 Has mild improvement in his insight and judgment today. At this time patient denies any suicidal or homical ideations, intent or plan. Patient denies any auditory, visual hallucinations. Patient denies any side effects from the medications and has been compliant with meds. Mental Status Exam: General Appearance: Patient appears to be disheveled, long diaz and hair, older than stated age is lethargic, mildly more cooperative today. milder Paranoid. Patient appears to have improving hygiene and grooming wearing hospital gown with fair eye contact. Behavior: Patient is agitated at times and uncooperative. Paranoia improving Speech: Patient's speech is more fluent today and more organized. Mood/Affect: Patient reports their mood is "alright", affect is congruent Suicidality/Homicidality: Patient denies having any suicidal or homicidal id eation intent or plan. Perceptions: Patient denies any visual hallucinations and denies any auditory hallucinations Though content/process: Rambles at times. More goal oriented. mild paranoia. Memory and concentration: AOX3, grossly intact for the purposes of this session. Judgment and insight: poor, improving mildly Assessment Psychosis unspecified History of depressive disorder Cannabis use disorder Alcohol abuse Nicotine dependence Plan: -Delirium precautions recommended with patient including - avoiding use of narcotics and TRAY DELIVERY AIDE sedatives, limit anticholinergic medications when possible, frequent re-orientation, minimize use of restraints, open window shades during the day and close them at night -Would recommend the following medication changes/additions: paliperidone by mouth 6 mg daily at bedtime for psychosis/mood stabilization. Celexa 30 mg daily for mood/anxiety. Trazodone 50 mg daily at bedtime when necessary for insomnia. PRN Haldol and Ativan as needed for agitation/psychosis -[facility] protocol with PRN Ativan for alcohol withdrawal. Continue to monitor vital signs. -At this time patient is not endorsing any suicidal thoughts or gestures, however if this does occur or patient becomes more disorganized and aggressive then he may need a sitter at that time for safety. -At this time patient does not meet criteria for inpatient psych hospitalization however will continue to follow patient tomorrow for possible further recommendations. -Communicated plan to patient's nurse -Please contact with any questions.
--- NOTE | 2020-12-17 12:50 | P.PN ---
Subjective This is a pleasant 65 years old male with past medical history of asthma/COPD, hypertension, osteoarthritis, anxiety and depression. Patient also is a known to be homeless with substance and abuse with psychiatric illness Patient comes with pain and Magers to the left leg. He was recently discharged from the hospital on 09/23/20 for left lower extremity cellulitis where he was treated with vancomycin. And he was discharge on oral doxycycline. This time patient presents with left leg cellulitis, patient reports in maggots and his wound. Also patient complains from some pain and tenderness in his left hand with no further details. During the conversation patient started talking rapidly about some women and unrelated subjects pt got angry very quickly and he refused to cooperate with further vitals are stable and patient is afebrile. Patient has unremarkable CBC, BMP and liver enzymes. Magnesium is 1.5 which is a slightly low. Brain is negative with less than 0.012. Lipase is normal at 140 and serum alcohol level is less than 10 EKG showed normal sinus rhythm at [address]PM with no significant [address]-T changes. On admission he was given clindamycin, and 1 dose of meropenem, Protonix and normal saline at 1 30 mL/h Infectious disease team and psychiatry were consulted for psychosis 12/16/2020 Patient is more calm and appropriate today although he still mildly agitated at times. He is awake and alert oriented to time place and person and to the surrounding, no evidence SIDE TO IDEATION OR HOMICIDAL THINKING. VITALS AND LABS ARE STABLE. HE REMAINS ON IV VANCOMYCIN PER ID TEAM RECOMMENDATION AND LEFT LEG WOUND CULTURE IS STILL PENDING. PSYCHIATRIC INPUT IS IT IS APPRECIATED HE WAS STARTED ON inVega 12/17/20 Patient today was with more agitated, his left leg wound cellulitis is improving. Hemodynamically stable but blood pressure elevated 170/75 and [facility] is growing presumptive staph and gram-negative bacilli, final results is pending Remains on IV vancomycin and normal saline Increase invega to 6 mg per psychiatrist patient had many questions today, all his questions were answered Objective - Vital Signs Vital signs: Vital Signs Temp 97.7 F 12/17/20 08:00 Pulse 98 12/17/20 08:00 Resp 18 12/17/20 08:00 BP 170/79 12/17/20 08:00 Pulse Ox 97 12/17/20 00:57 Intake & Output 12/16/20 12/17/20 12/17/20 18:59 06:59 18:59 Weight 81.647 kg Other: Voiding Method Toilet Urinal # Voids 1 - Exam GENERAL: The patient is alert and oriented x3, not in any acute distress. Well developed, well nourished. HEENT: Pupils are round and equally reacting to light. EOMI. No scleral icterus. No conjunctival pallor. Normocephalic, atraumatic. No pharyngeal erythema. No thyromegaly. CARDIOVASCULAR: S1 and S2 present. No murmurs, rubs, or gallops. PULMONARY: Chest is clear to auscultation, no wheezing or crackles. ABDOMEN: Soft, nontender, nondistended, normoactive bowel sounds. No palpable organomegaly. MUSCULOSKELETAL: No joint swelling or deformity. -EXTREMITIES: No cyanosis, clubbing, or pedal edema. Left leg cellulitis with deformity and open vertical wound NEUROLOGICAL: Gross neurological examination did not reveal any focal deficits. SKIN: No rashes. No petechiae Psychiatric: Patient has flight of ideas, the width and related subject. In he is talking about millionths of maggots in his left leg - Labs CBC & Chem 7: 12/16/20 05:37 12/17/20 05:12 Labs: Abnormal Lab Results - Last 24 Hours (Table) 12/17/20 Range/Units 05:12 Creatinine 0.55 L (0.66-1.25) mg/dL Magnesium 1.5 L (1.6-2.3) mg/dL Microbiology - Last 24 Hours (Table) 12/15/20 10:00 Gram Stain - Preliminary Leg - Left Wound Culture - Preliminary Presumptive Staph aureus Gram Neg Bacilli 12/15/20 01:43 Blood Culture - Preliminary Blood No Growth after 48 hours Assessment and Plan Assessment: recurrent Left lower extremity cellulitis Left leg wound with chronic fibrous tissue and deformity in his left leg. There is also some purulent discharge acute psychosis , nonspecified associated with substance abuse: Cannabis and alcohol Nicotine dependence Asthma/COPD, not an active issue Hypertension Osteoarthritis History of anxiety and depression, not an active issue Plan: this is a pleasant 65 years old male who presents with left leg cellulitis Follow-up wound culture Continue with vancomycin per ID team recommendation Psychiatry team consult. Continue with inVega and trazodone as needed for insomnia log chain worker consult Labs and medication were reviewed.. Continue same treatment. Continue with symptomatic treatment. Resume home medication. Monitor lytes and vitals. DVT and GI prophylaxis. Further recommendationsas per clinical course of the patient DVT prophylaxis: Subcutaneous heparin GI Prophylaxis: Ppi PT/OT: Pending Prognosis is guarded
[2020-12-17] MEDS: amLODIPine 5 MG TAB PO SCH (14:21)
[2020-12-17] MEDS: CEFEPIME 2 GM in SODIUM CHLORIDE 0.9% 100 ML IVPB SCH (16:53)
--- NOTE | 2020-12-17 17:01 | PN ---
PROGRESS NOTE DATE OF SERVICE: 12/17/2020 REASON FOR FOLLOWUP: Left leg wound and cellulitis. INTERVAL HISTORY: The patient is afebrile. He is breathing comfortably. Overall pain and discomfort to the left leg have slightly decreased. No chest pain, shortness of breath or cough. No nausea. No vomiting. No abdominal pain or diarrhea. PHYSICAL EXAMINATION: Blood pressure 130/77, pulse 85, temperature 99. He is 96% on room air. GENERAL DESCRIPTION: General description is a middle-aged male lying in bed in no distress. RESPIRATORY SYSTEM: Unlabored breathing. Clear to auscultation anteriorly. HEART: S1, S2. Regular rate and rhythm. ABDOMEN: Soft. No tenderness. Left leg is currently dressed. No drainage on the dressing. LABS: Creatinine is 0.55. Culture with presumptive Staph aureus and Gram-negative bacilli. DIAGNOSTIC IMPRESSION AND PLAN: Patient with left leg wound with secondary cellulitis. Culture is now showing a Gram- negative in addition to the Staph aureus. We will add cefepime to cover for the Gram- negative. Continue vancomycin, adjusting antibiotic further on the basis of the final cultures. Continue supportive care. MMODL / IJN: [id number] /
[2020-12-17] MEDS: traZODone HCL 50 MG TAB PO PRN (20:01)
[2020-12-17] MEDS: PALIPERIDONE 6 MG TAB.ER.24 PO SCH (20:01)
[2020-12-18] MEDS: CEFEPIME 2 GM in SODIUM CHLORIDE 0.9% 100 ML IVPB SCH ×3 (01:29→16:07)
[2020-12-18] MEDS: MORPHINE SULFATE 4 MG/ML SYRINGE IV PRN ×3 (01:56→14:40)
[2020-12-18] MEDS ORDERED: VANCOMYCIN TROUGH DUE 1 EACH MISC MISCELLANE ONE (04:00)
[2020-12-18] MEDS: VANCOMYCIN 1,500 MG in SODIUM CHLORIDE 0.9% 250 ML IVPB SCH (05:03)
[2020-12-18] MEDS: LORazepam 2 MG/ML INJ IV PRN (05:08)
[2020-12-18] MEDS: SODIUM CHLORIDE 0.9% 1,000 ML IV SCH (05:44)
[2020-12-18 05:46] LABS: African American GFR (CKD) >90 (>60 ml/min/1.73 sqM); Non-African American GFR(CKD) >90 (>60 ml/min/1.73 sqM)
[2020-12-18] MEDS: PANTOPRAZOLE 40 MG TABLET PO SCH (07:35)
[2020-12-18] MEDS: amLODIPine 5 MG TAB PO SCH (09:20)
[2020-12-18] MEDS: CITALOPRAM HYDROBROMIDE 20 MG TAB PO SCH (09:20)
[2020-12-18] MEDS: hydroCHLOROthiazide 25 MG TAB PO SCH (09:20)
[2020-12-18] MEDS: HEPARIN SODIUM,PORCINE/PF 5,000 UNIT/0.5 ML SYRINGE SQ SCH (09:20)
--- NOTE | 2020-12-18 12:38 | P.PN ---
Progress Note - Text Progress Note Date: 12/18/20 Interval History: Patient was seen today for patient's psychiatric condition. Patient was sitting by the window today and spoke about discharge. He was more cooperative today with the medical underwriter in discussing his symptoms. He asked medical underwriter why he keeps on coming to talk to him and see him at the bedside and medical underwriter responded. Patient appears to be more logical in his thought process. He claims that he does not know where he is going to go once he is discharged however did mention going to a intermediate. He claims that he will be taking his medications as prescribed. He appears to have improvement in his hygiene and grooming. He states that he did not sleep well last night. Freight Inspector spoke with patient about increasing his nighttime medication and patient agreed. He is denying any auditory or visual hallucinations and denying any suicidal or homicidal ideations intent or plan. Patient denies any side effects from the medications and has been compliant with meds. Mental Status Exam: General Appearance: Patient appears to be disheveled, long diaz and hair, older than stated age is lethargic, mildly more cooperative today. milder Paranoid. Patient appears to have improving hygiene and grooming wearing hospital gown with fair eye contact. Behavior: Patient is more cooperative today. Paranoia improving Speech: Patient's speech is more fluent today and more organized. Mood/Affect: Patient reports their mood is "good", affect is congruent Suicidality/Homicidality: Patient denies having any suicidal or homicidal ideation intent or plan. Perceptions: Patient denies any visual hallucinations and denies any auditory hallucinations Though content/process: Rambles at times. More goal oriented. mild paranoia, improving mildly Memory and concentration: AOX3, grossly intact for the purposes of this session. Judgment and insight: Chronically poor, improving mildly Assessment Psychosis unspecified History of depressive disorder Cannabis use disorder Alcohol abuse Nicotine dependence Plan: -Delirium precautions recommended with patient including - avoiding use of narco tics and SURGICAL GARMENT ASSEMBLER sedatives, limit anticholinergic medications when possible, frequent re-orientation, minimize use of restraints, open window shades during the day and close them at night -Would recommend the following medication changes/additions: Increase paliperidone by mouth 9 mg daily at bedtime for psychosis/mood stabilization. continue with Celexa 30 mg daily for mood/anxiety. Trazodone 50 mg daily at bedtime when necessary for insomnia. PRN Haldol and Ativan as needed for agitation/psychosis -At this time patient does not meet criteria for inpatient psych hospitalization as patient is more organized, not endorsing any thoughts of self harm or harm to others. -Psychiatry will sign off at this time. -Patient can follow up with [facility] upon discharge for psych -Communicated plan to patient's nurse -Please contact with any questions.
[2020-12-18 13:43] LABS: Magnesium 1.5 mg/dL (1.6-2.3); Potassium 3.8 mmol/L (3.5-5.1)
[2020-12-18] MEDS ORDERED: VANCOMYCIN 1,250 MG in SODIUM CHLORIDE 0.9% 250 ML IVPB SCH (14:00)
--- NOTE | 2020-12-18 14:16 | PN ---
PROGRESS NOTE DATE OF SERVICE: 12/18/2020. REASON FOR FOLLOWUP: Left lower extremity wound and cellulitis. INTERVAL HISTORY: Patient is afebrile. He is currently breathing comfortably. No chest pain. No cough. No abdominal pain. No worsening pain to the left leg. He is already dressed up and wants to go home. PHYSICAL EXAMINATION: Blood pressure 182/95 with a pulse of 77, temperature is 97.8. He is 97% on room air. General description is a middle-aged male up in the bed in no distress. Respiratory system: Unlabored breathing, clear to auscultation. Heart S1, S2 regular rate and rhythm. Abdomen: Soft, no tenderness. Left leg is currently dressed up. Overall redness has decreased. LABS: Creatinine 0.67. Wound culture with Providencia and Staph aureus. DIAGNOSTIC IMPRESSION AND PLAN: Patient with left leg cellulitis and wound infection, more likely MSSA is the infected pathogen. The patient insisting on going home. Antibiotic switched to oral Keflex 500 mg 4 times a day for 10 days and close outpatient follow. Local wound care with dry Aquacel Silver dressing. Follow up in the [facility] center next week. MMODL / IJN: [id number] /
[2020-12-18] MEDS ORDERED: POTASSIUM CHLORIDE ER 20 MEQ TAB.ER PO STA (14:52)
[2020-12-18] MEDS: MAGNESIUM SULFATE-D5W PMX 1 GM in DEXTROSE/WATER 1 100ML.BAG IVPB SCH ×2 (15:13→16:06)
[2020-12-18 15:15] VITALS: BP 121/85; PULSE 85; RESP 16; TEMP 98.3
[2020-12-18] MEDS ORDERED: PALIPERIDONE 3 MG TAB.ER.24 PO SCH (21:00)
--- NOTE | 2020-12-18 23:34 | P.DS ---
Providers Date of admission: 12/15/20 11:51 Attending physician: Pierre Hanson Consults: 12/15/20 02:16 Consult Physician Routine Consulting Provider: Neli Larson Consult Reason/Comments: cellulitis Do you want consulting provider notified?: Yes 12/15/20 02:17 Consult Physician Routine Consulting Provider: Denver Parham Reason/Comments: psychosis Do you want consulting provider notified?: Already Contacted Primary care physician: Rose Stauffer Hospital Course: Diagnoses: recurrent Left lower extremity cellulitis Left leg wound with chronic fibrous tissue and deformity in his left leg. There is also some purulent discharge acute psychosis , nonspecified associated with substance abuse: Cannabis and alcohol Nicotine dependence Asthma/COPD, not an active issue Hypertension Osteoarthritis History of anxiety and depression, not an active issue Hospital course: This is a pleasant 65 years old male with past medical history of asthma/COPD, hypertension, osteoarthritis, anxiety and depression. Patient also is a known to be homeless with substance and abuse with psychiatric illness Patient comes with pain and Maggots to the left leg. He has left lower extremity wound and with some deformity around it with looks chronic. He has an open wound with mild surrounding cellulitis with some purulent discharge. He was started with IV vancomycin with IV fluid under care and follow-up with infectious disease team, culture came back positive for MSSA And providencia and patient is discharged on 10 days of oral Keflex per ID team recommendation. No fever or leukocytosis upon discharge Psychiatrist evaluated the patient for non specific acute psychotic symptoms, he responded to treatment by psychiatrist including N [place] 9 mg, his home dose of Celexa at 20 mg daily and trazodone 50 mg at at bedtime as needed On the day of discharge he was clinically stable, he denies any symptoms, he was walking in his room freely, rest and sitting up at bedside. No chest pain or dyspnea. No abdominal pain. No change In urine or bowel habits. No fever Patient was cleared for discharge by infectious disease and psychiatrist He is homeless and social work nurse given him a list of shelters to which he agrees to follow up with Problems and management plan were discussed with the patient and he verbalized understanding and acceptance Patient was found stable and can be discharged home however he needs follow-up as an outpatient. Patient was instructed to follow up with PCP Dr. Leroy within one week and patient agrees Patient also was instructed to follow up with the wound center on 12/29 and he agrees Note because his been discharged on psych medication:repeat EKG; QTC 461, nsr at 74 , no significant st-t changes his repeat BP IS 121/85 prior to discharge Physical exam Gen: patient is a AAOx3, no distress CVS: S1-S2, RRR, no murmur Lungs: B/L CTA, no wheezing Abdomen: soft, no distention, no tenderness, positive bowel sounds Extremity: no leg edema or induration Time spent more than 35 minutes Patient Condition at Discharge: Fair Plan - Discharge Summary Discharge Rx Participant: No New Discharge Prescriptions: New Paliperidone [Invega] 9 mg PO HS #90 tablet Cephalexin [Keflex] 500 mg PO Q6HR 1 Days #40 cap Magnesium Oxide [Mag-Ox] 400 mg PO BID 10 Days #20 tablet traZODone HCL [Desyrel] 50 mg PO HS PRN #30 tab PRN Reason: Insomnia amLODIPine [Norvasc] 5 mg PO DAILY #30 tab Continue Nicotine 21Mg/24Hr Patch [Habitrol] 1 patch TRANSDERM DAILY patch hydroCHLOROthiazide [Hydrodiuril] 50 mg PO DAILY tab Citalopram Hydrobromide [CeleXA] 20 mg PO DAILY #30 tab Discontinued traZODone HCL [Desyrel] 100 mg PO HS #30 tab Ibuprofen [Motrin] 600 mg PO TID tab Cephalexin [Keflex] 500 mg PO Q6HR 10 Days #40 cap Discharge Medication List Nicotine 21Mg/24Hr Patch [Habitrol] 1 patch TRANSDERM DAILY patch 11/25/20 [Rx] hydroCHLOROthiazide [Hydrodiuril] 50 mg PO DAILY tab 11/25/20 [Rx] Cephalexin [Keflex] 500 mg PO Q6HR 1 Days #40 cap 12/18/20 [Rx] Citalopram Hydrobromide [CeleXA] 20 mg PO DAILY #30 tab 12/18/20 [Rx] Magnesium Oxide [Mag-Ox] 400 mg PO BID 10 Days #20 tablet 12/18/20 [Rx] Paliperidone [Invega] 9 mg PO HS #90 tablet 12/18/20 [Rx] amLODIPine [Norvasc] 5 mg PO DAILY #30 tab 12/18/20 [Rx] traZODone HCL [Desyrel] 50 mg PO HS PRN #30 tab 12/18/20 [Rx] Follow up Appointment(s)/Referral(s): Eh Rose MD [Primary Care Provider] - 1-2 days (patient to make appointment after D/C) [facility] [NON-STAFF] - 12/29/20 2:00 pm Patient Instructions/Handouts: Cellulitis (DC) Activity/Diet/Wound Care/Special Instructions: heart health diet activity is restricted till you see your doctor Discharge Disposition: HOME WITH HOME HEALTH SERVICES
== END 2020-12-18 17:48 | disposition home health service (06) | DRG 603 ==
LOC: EC 23:42 → 6NMEDSUR 12-15 02:16 → OBSVTOIN 12-15 11:51 → 4SSUR 12-15 12:47
PROVIDERS: ADMIT Hospitalist; ATTEND Hospitalist
DX: L03.116 Cellulitis of left lower limb (principal); F10.159 Alcohol abuse with alcohol-induced psychotic disorder, unspecified; T86.891 Other transplanted tissue failure; B95.61 Methicillin susceptible Staphylococcus aureus infection as the cause of diseases classified elsewhere; F43.10 Post-traumatic stress disorder, unspecified; F12.159 Cannabis abuse with psychotic disorder, unspecified; I10 Essential (primary) hypertension; I25.2 Old myocardial infarction; J44.9 Chronic obstructive pulmonary disease, unspecified; M19.90 Unspecified osteoarthritis, unspecified site; F17.210 Nicotine dependence, cigarettes, uncomplicated; F32.9 Major depressive disorder, single episode, unspecified; Z91.81 History of falling; R62.7 Adult failure to thrive; Z68.24 Body mass index [BMI] 24.0-24.9, adult; Z59.0 Homelessness; Z79.899 Other long term (current) drug therapy; Z82.49 Family history of ischemic heart disease and other diseases of the circulatory system; Z82.5 Family history of asthma and other chronic lower respiratory diseases; Z88.1 Allergy status to other antibiotic agents; Z88.6 Allergy status to analgesic agent; Z88.5 Allergy status to narcotic agent; Z88.0 Allergy status to penicillin; Z88.2 Allergy status to sulfonamides; Z86.14 Personal history of Methicillin resistant Staphylococcus aureus infection; Z98.890 Other specified postprocedural states
CPT/HCPCS: 36415; 80053; 80202; 80320; 81003; 82550; 82565; 83605; 83690; 83735; 83880; 84100; 84132; 84484; 85025; 85610; 85652; 85730; 86140; 87040; 87070; 87075; 87077; 87186; 87205; 93005; 94760; 96374; 96375; 99284

== ENCOUNTER 2020-12-19 00:06 | Emergency (ER) | payer MEDICARE, OTHER ==
[2020-12-19 00:15] VITALS: BP 114/77; PULSE 85; RESP 18; TEMP 98.2
[2020-12-19] MEDS ORDERED: ACET/COD 300 MG/30 MG STARTER PACK 6 TAB BTL PO STA (01:00)
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
== END 2020-12-19 01:41 | disposition home or self-care (01) ==
LOC: EC 00:06
DX: L03.116 Cellulitis of left lower limb (principal); J44.9 Chronic obstructive pulmonary disease, unspecified; I10 Essential (primary) hypertension; I25.2 Old myocardial infarction; M19.90 Unspecified osteoarthritis, unspecified site; F41.9 Anxiety disorder, unspecified; F32.9 Major depressive disorder, single episode, unspecified; F43.12 Post-traumatic stress disorder, chronic; F17.200 Nicotine dependence, unspecified, uncomplicated; F12.90 Cannabis use, unspecified, uncomplicated; Z88.0 Allergy status to penicillin; Z88.1 Allergy status to other antibiotic agents; Z88.2 Allergy status to sulfonamides; Z88.5 Allergy status to narcotic agent; Z88.6 Allergy status to analgesic agent; Z90.89 Acquired absence of other organs
CPT/HCPCS: 99283

== ENCOUNTER 2020-12-21 01:16 | Emergency (ER) | payer MEDICARE, OTHER ==
[2020-12-21 01:24] VITALS: BP 148/84; PULSE 79; RESP 18; TEMP 98.3
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
== END 2020-12-21 05:42 | disposition home or self-care (01) ==
LOC: EC 01:16
DX: Z76.0 Encounter for issue of repeat prescription (principal); M79.605 Pain in left leg; J44.9 Chronic obstructive pulmonary disease, unspecified; I10 Essential (primary) hypertension; I25.2 Old myocardial infarction; M19.90 Unspecified osteoarthritis, unspecified site; F32.9 Major depressive disorder, single episode, unspecified; F41.9 Anxiety disorder, unspecified; F17.290 Nicotine dependence, other tobacco product, uncomplicated; F12.90 Cannabis use, unspecified, uncomplicated
CPT/HCPCS: 82075; 99283

== ENCOUNTER 2020-12-23 02:20 | Emergency (ER) | payer MEDICARE, OTHER ==
[2020-12-23 02:46] VITALS: BP 167/106; PULSE 83; RESP 20; TEMP 99.1
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
[2020-12-23 07:02] LABS: Amphetamine Screen,Urine Not Detected (NotDetected); Barbiturate Screen,Urine Not Detected (NotDetected); Benzodiazepines Screen,Urine Not Detected (NotDetected); Cocaine Screen,Urine Not Detected (NotDetected); Methadone Screen, Urine Not Detected (NotDetected); Opiate Screen,Urine Detected (NotDetected); Oxycodone Screen, Urine Not Detected (NotDetected); Phencyclidine Screen,Urine Not Detected (NotDetected); Tricyclic Antidepressant,Urine Not Detected (NotDetected); Urn Cannabinoid Scrn Detected (NotDetected)
== END 2020-12-23 06:03 | disposition home or self-care (01) ==
LOC: EC 02:20
DX: F29 Unspecified psychosis not due to a substance or known physiological condition (principal); F32.9 Major depressive disorder, single episode, unspecified; I10 Essential (primary) hypertension; J45.909 Unspecified asthma, uncomplicated; I25.2 Old myocardial infarction; M19.90 Unspecified osteoarthritis, unspecified site; F41.9 Anxiety disorder, unspecified; F43.12 Post-traumatic stress disorder, chronic; F17.200 Nicotine dependence, unspecified, uncomplicated; F12.90 Cannabis use, unspecified, uncomplicated; Z88.2 Allergy status to sulfonamides; Z88.1 Allergy status to other antibiotic agents; Z88.6 Allergy status to analgesic agent; Z88.0 Allergy status to penicillin; Z88.5 Allergy status to narcotic agent; Z90.89 Acquired absence of other organs; Z79.899 Other long term (current) drug therapy
CPT/HCPCS: 80306; 82075; 99284

== ENCOUNTER 2020-12-25 23:15 | Observation (INO) | payer MEDICARE, OTHER ==
[2020-12-26] MEDS ORDERED: SODIUM CHLORIDE 0.9% 500 ML 500 ML IV STA (00:07)
[2020-12-26] MEDS ORDERED: SODIUM CHLORIDE 0.9% 1,000 ML IV STA (00:07)
[2020-12-26] MEDS ORDERED: LORazepam 2 MG/ML INJ IV STA (00:10)
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
[2020-12-26 02:24] LABS: Basophils # (A) 0.1 k/uL (0-0.2); Basophils % (A) 1 %; Eosinophils # (A) 0.4 k/uL (0-0.7); Eosinophils % (A) 5 %; HCT 43.7 % (39.0-53.0); Lymphocytes # (A) 1.8 k/uL (1.0-4.8); Lymphocytes % (A) 21 %; MCH 33.9 pg (25.0-35.0); MCHC 34.3 g/dL (31.0-37.0); MCV 98.7 fL (80.0-100.0); Mean Platelet Volume 8.5; Monocytes # (A) 0.5 k/uL (0-1.0); Monocytes % (A) 6 %; Neutrophils # (A) 5.7 k/uL (1.3-7.7); Neutrophils % (A) 66 %; Platelet Count 311 k/uL (150-450); RBC 4.43 m/uL (4.30-5.90); WBC 8.6 k/uL (3.8-10.6)
[2020-12-26] MEDS ORDERED: MORPHINE SULFATE 4 MG/ML SYRINGE IVP STA (02:32)
[2020-12-26] MEDS ORDERED: ONDANSETRON 4 MG/2 ML VIAL IVP PRN (02:32)
[2020-12-26] MEDS ORDERED: NALOXONE 0.4 MG/ML 1 ML VIAL IV PRN (02:32)
[2020-12-26 03:10] LABS: ALT 23 U/L (4-49); AST 47 U/L (17-59); African American GFR (CKD) >90 (>60 ml/min/1.73 sqM); Albumin 3.7 g/dL (3.5-5.0); Alcohol <10 mg/dL; Alkaline Phosphatase 74 U/L (38-126); Anion Gap 6 mmol/L; Blood Urea Nitrogen 12 mg/dL (9-20); Calcium 9.3 mg/dL (8.4-10.2); Carbon Dioxide 25 mmol/L (22-30); Chloride 105 mmol/L (98-107); Creatine Kinase 119 U/L (55-170); Glucose 101 mg/dL (74-99); Magnesium 1.6 mg/dL (1.6-2.3); Non-African American GFR(CKD) >90 (>60 ml/min/1.73 sqM); Phosphorus 3.6 mg/dL (2.5-4.5); Potassium 4.1 mmol/L (3.5-5.1); Sodium 136 mmol/L (137-145); Total Bilirubin 0.7 mg/dL (0.2-1.3)
[2020-12-26] MEDS: SODIUM CHLORIDE 0.9% 1,000 ML IV SCH ×4 (04:13→20:41)
[2020-12-26] MEDS: MORPHINE SULFATE 4 MG/ML SYRINGE IVP PRN ×4 (08:17→22:33)
[2020-12-26] MEDS: LORazepam 2 MG/ML INJ IV PRN ×2 (14:46→20:32)
[2020-12-26 15:53] LABS: African American GFR (CKD) >90 (>60 ml/min/1.73 sqM); Anion Gap 5 mmol/L; Blood Urea Nitrogen 12 mg/dL (9-20); Calcium 8.9 mg/dL (8.4-10.2); Carbon Dioxide 22 mmol/L (22-30); Chloride 109 mmol/L (98-107); Glucose 104 mg/dL (74-99); Non-African American GFR(CKD) >90 (>60 ml/min/1.73 sqM); Potassium 4.2 mmol/L (3.5-5.1); Sodium 136 mmol/L (137-145)
[2020-12-26 15:58] LABS: Basophils # (A) 0.1 k/uL (0-0.2); Basophils % (A) 1 %; Eosinophils # (A) 0.3 k/uL (0-0.7); Eosinophils % (A) 4 %; HCT 41.2 % (39.0-53.0); HGB 13.9 gm/dL (13.0-17.5); Lymphocytes # (A) 1.3 k/uL (1.0-4.8); Lymphocytes % (A) 17 %; MCH 34.1 pg (25.0-35.0); MCHC 33.6 g/dL (31.0-37.0); MCV 101.4 fL (80.0-100.0); Macrocytosis Slight; Mean Platelet Volume 8.5; Monocytes # (A) 0.5 k/uL (0-1.0); Monocytes % (A) 6 %; Neutrophils # (A) 5.4 k/uL (1.3-7.7); Neutrophils % (A) 70 %; Platelet Count 330 k/uL (150-450); RBC 4.07 m/uL (4.30-5.90); WBC 7.7 k/uL (3.8-10.6)
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
--- NOTE | 2020-12-26 23:34 | P.CN ---
Psychiatric Consult - . Consult date: 12/26/20 Consult:: Reason for consultation: Depression and suicidal ideation. Identifying data: Patient is a 65 year-old male who is currently admitted to medical floor for treatment of chest pain, cellulitis and wound infection. The patient was seen while he was at medical floor. . Chief complaint and history of present illness: Patient denies any suicidal ideation, and denies stated that he wants to end his life or kills himself.He reports to his medical doctor that he doesn't want to live with pain. He denies any thoughts, intent or plan to hurt himself. Reports want to get better and get back to his home. Reports history of depression treatment long time ago and currently not taking any medications for depression. Pt denies any current sx of hopelessness, helplessness, worthlessness, suicidal thoughts, suicidal intent, suicidal plan, diminished motivation, lack of interest, feeling guilty, crying spells, sleep disturbances, or appetite disturbances. Pt denies any severe anxiety, racing thoughts, or panic attacks. Patient denies any manic symptoms including feeling inflated self-esteem, a euphoric mood, unusual increased level of energy, lack need to sleep due to increased activities, impulsive and irrational behavior. Patient denies any psychotic symptoms including auditory/visual hallucinations, paranoid ideation, delusions. Past psychiatric history: Previous psychiatric hospitalization: Denies Previous suicidal attempts: Denies Previous psychiatric treatment: Treatment of depression "many years ago". Substance use history: Nicotine:Smokes 1 PPD. Alcohol: Denies Cannabis: Reports smokes marijuana regularly Denies using any other street drugs Family history of psychiatric illness: Denies any family history of suicide, mental illness or addiction problems Brief social history: Patient currently lives by himself at his own residence, unemployed on [employer], has one daughter and 2 grand children. Mental status examination; Appearance: The patient appears stated age, adequately groomed and dressed, no specific features. Gait/posture: Lying down, No abnormal movements. Attitude and behavior: engaged, cooperative, fair eye contact. Motor activity: Normal psycho-motor activity Speech: Normal rate, tone. Mood: Anxious Affect: Constricted Thought form: goal-directed, linear, coherent. Thought content: Non-delusional, denies suicidal thoughts, denies homicidal thoughts, denies intentions or plans. Perception: Denies any auditory or visual hallucinations Attention: No impairment. Patient was able to repeat serial 5. Orientation: Patient patient was fully oriented to time place person and situation. Insight: Patient has fair insight about his psychiatric disorder. Judgment: Patient has fair judgment about his psychiatric treatment. Assessment: Adjustment disorder with anxious mood Recommendations: Addressed and ensured patient's safety, patient is stable psychiatrically stable, and does not meet the criteria for psychiatric hospitalization. At this time there is no need for further follow-up by psychiatric team. Refer to outpatient psychiatric treatment after discharge for further evaluation and monitoring. Discussed the treatment plan with the requesting physician/service. Brief supportive psychotherapy was provided regarding patient's acute and chronic stress. Psycho-education was provided to the patient. Thank you for permitting me to assist in this patient's treatment. Please call psychiatry department if you have any question or need further help with this case.
[2020-12-27] MEDS: LORazepam 2 MG/ML INJ IV PRN ×6 (00:37→22:53)
[2020-12-27] MEDS: MORPHINE SULFATE 4 MG/ML SYRINGE IVP PRN ×5 (03:41→21:23)
[2020-12-27] MEDS: SODIUM CHLORIDE 0.9% 1,000 ML IV SCH ×3 (05:02→13:26)
[2020-12-27] MEDS ORDERED: traZODone HCL 50 MG TAB PO PRN (11:20)
[2020-12-27] MEDS ORDERED: NICOTINE 21MG/24HR PATCH TRANSDERM PRN (11:20)
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
[2020-12-27] MEDS: amLODIPine 5 MG TAB PO SCH (12:29)
[2020-12-27] MEDS ORDERED: ACETAMINOPHEN TAB 325 MG TAB PO STA (16:20)
[2020-12-27] MEDS: MAGNESIUM OXIDE 400 MG TAB PO SCH (20:01)
--- NOTE | 2020-12-27 20:06 | P.PN ---
Subjective Progress Note Date: 12/27/20 Principal diagnosis: Leg wound/cellulitis 65 male with a past medical history significant for chronic nonhealing wound to the left lower extremity in this patient who has multiple admission to the hospital concerning for cellulitis and osteomyelitis with recent readmission to this facility for left lower extremity cellulitis patient also culture positive for MSSA and that was treated with IV cefazolin followed by oral Keflex patient is now presenting back to the [facility] without any clear symptoms as there is no documentation in the ER physician report patient at the time of my evaluation is sleepy lethargic and is unable provide any history nursing staff did mention some agitation earlier and has received some sedation patient on presentation to the hospital was afebrile and no fever has been recorded subsequently white count is normal westfall PCR was negative patient was given a dose of Rocephin continue Rocephin has been admitted to hospital infectious disease was consulted for further management of antibiotic therapy most information has been obtained from review the chart talking Objective - Vital Signs Vital signs: Vital Signs Temp 97.5 F L 12/27/20 07:00 Pulse 58 L 12/27/20 08:00 Resp 18 12/27/20 08:00 BP 175/99 12/27/20 07:00 Pulse Ox 96 12/27/20 07:00 Intake & Output 12/26/20 12/27/20 12/27/20 18:59 06:59 18:59 Intake Total 990 1555 Balance 990 1555 Intake: Intake, IV Titration 1555 Amount Sodium Chloride 0.9% 1, 1505 000 ml @ 130 mls/hr IV . [id number] [facility] Rx#:[id number] ceFAZolin 2 gm In Sodium 50 Chloride 0.9% 50 ml @ 100 mls/hr IVPB Q8HR [facility] Rx# :[id number] Oral 990 Other: Voiding Method Toilet # Voids 2 - Exam GENERAL DESCRIPTION: Middle-aged male lying in bed, no distress. No tachypnea or accessory muscle of respiration use. HEENT: Shows Pallor , no scleral icterus. Oral mucous membrane is dry. NECK: Trachea central, no thyromegaly. LUNGS: Unlabored breathing. Clear to auscultation anteriorly. No wheeze or crackle. HEART: S1, S2, regular rate and rhythm. ABDOMEN: Soft, no tenderness , guarding or rigidity EXTREMITIES: No edema of feet. Left leg wound with minimal swelling no significant redness or foul-smelling drainage SKIN: No rash, no masses palpable. NEUROLOGICAL: The patient is sleepy lethargic orientation could not determine - Labs CBC & Chem 7: 12/26/20 15:09 12/26/20 15:09 Labs: Abnormal Lab Results - Last 24 Hours (Table) 12/26/20 12/26/20 Range/Units 15:09 15:09 RBC 4.07 L (4.30-5.90) m/uL MCV 101.4 H (80.0-100.0) fL Sodium 136 L (137-145) mmol/L Chloride 109 H (98-107) mmol/L Glucose 104 H (74-99) mg/dL Assessment and Plan Assessment: 1. Cellulitis left lower extremity 2. Chronic nonhealing wound left lower extremity; patient has been placed on Rocephin 1 g IV daily; order wound and blood cultures; order CBC, CRP and pro- calcitonin; consult ID for further recommendations 3. Uncontrolled hypertension; we will restart home dose of amlodipine and hydrochlorothiazide; monitor blood pressure closely and make further adjustments as needed 4. COPD/asthma; not in exacerbation; continue not using inhalers 5. CAD/history of PA; by history; patient currently not on aspirin, beta blockers or statin therapy 6. Tobacco abuse; nicotine patch 21 mg daily; counseling done on need for cessation of smoking 7. Bipolar disorder; continue with home dose of Celexa, Invega and Desyrel DVT prophylaxis; SCDs/subcu heparin CODE STATUS; full code
[2020-12-27] MEDS ORDERED: PALIPERIDONE 3 MG TAB.ER.24 PO SCH (21:00)
--- NOTE | 2020-12-27 23:54 | PN ---
PROGRESS NOTE DATE OF SERVICE: 12/27/2020 REASON FOR FOLLOWUP: Left leg wound cellulitis. INTERVAL HISTORY: Patient is afebrile. He is breathing comfortably. He is more awake and alert. Denies any chest pain, shortness of breath. No cough. No abdominal pain or worsening pain to the left leg wound area. PHYSICAL EXAMINATION: Blood pressure 152/87, pulse of 78, temperature 98.3. He is 93% on room air. General description is a middle-aged male lying in bed in no distress. Respiratory system: Unlabored breathing, clear to auscultation anteriorly. Heart S1, S2. Regular rate and rhythm. Abdomen soft, no tenderness. Left leg swelling persists. Redness has decreased. Minimal slough tissue at the wound base. LABS: No new labs have been obtained today. DIAGNOSTIC IMPRESSION AND PLAN: Patient with left leg wound with secondary cellulitis. Continue cefazolin. Transition to oral Keflex on discharge. Local wound care with Medihoney followed by moist dressing to be changed daily. Continue supportive care. MMODL / IJN: [id number] /
[2020-12-28] MEDS: SODIUM CHLORIDE 0.9% 1,000 ML IV SCH ×2 (01:15→08:22)
[2020-12-28] MEDS: MORPHINE SULFATE 4 MG/ML SYRINGE IVP PRN ×3 (02:49→12:29)
[2020-12-28 07:49] VITALS: RESP 17
[2020-12-28] MEDS: amLODIPine 5 MG TAB PO SCH (08:21)
[2020-12-28] MEDS: MAGNESIUM OXIDE 400 MG TAB PO SCH (08:21)
[2020-12-28] MEDS ORDERED: CITALOPRAM HYDROBROMIDE 20 MG TAB PO SCH (09:00)
[2020-12-28 09:20] LABS: Basophils # (A) 0.04 X 10*3/uL (0.00-0.10); Basophils % (A) 0.5 %; Eosinophils # (A) 0.32 X 10*3/uL (0.04-0.35); HCT 41.6 % (39.6-50.0); HGB 13.6 g/dL (13.0-17.0); Lymphocytes # (A) 1.23 X 10*3/uL (0.90-5.00); Lymphocytes % (A) 15.5 %; MCH 32.3 pg (27.0-32.0); MCHC 32.7 g/dL (32.0-37.0); MCV 98.8 fL (80.0-97.0); Mean Platelet Volume 11.4 fL (9.5-12.2); Monocytes # (A) 0.68 X 10*3/uL (0.20-1.00); Monocytes % (A) 8.6 %; Neutrophils # (A) 5.66 X 10*3/uL (1.80-7.70); Neutrophils % (A) 71.1 %; Platelet Count 301 X 10*3/uL (140-440); RBC 4.21 X 10*6/uL (4.40-5.60); RDW 12.7 % (11.5-14.5); WBC 7.95 X 10*3/uL (4.50-10.00)
[2020-12-28 10:10] LABS: Anion Gap 10.3 mmol/L (4.00-12.00); BUN/Creat Ratio 16.67 Ratio (12.00-20.00); Calcium 9.2 mg/dL (8.7-10.3); Carbon Dioxide 22.7 mmol/L (21.6-31.8); Potassium 3.9 mmol/L (3.5-5.5)
[2020-12-28] MEDS ORDERED: OLANZapine 10 MG VIAL IM PRN (14:14)
[2020-12-28] MEDS ORDERED: hydrOXYzine pamoate 25 MG CAP PO PRN (14:15)
--- NOTE | 2020-12-28 14:21 | P.PN ---
Progress Note - Text Progress Note Date: 12/28/20 Interval History: Patient was seen today for psychiatric follow-up regarding patient's psychiatric condition. Patient has been admitted admitted numerous times for similar complaints and today was just finishing his lunch 1 check writer approached him. Nurse taking care of patient claims that he has been doing fine and offered no significant complaints about patient's condition or behaviors. Patient claims that he came to the hospital because he believes that he needs to get antibiotics before going to a fpc. He states that he is willing to get placement as he is currently homeless. He states that his leg "blew up" when he went into the hospital before. He has chronically poor insight and judgment. He states that he has been sleeping fairly however last night did not. She claims that he will be taking his paliperidone tonight and check writer spoke with him about compliance. At this time patient denies any suicidal or homical ideations, intent or plan. Patient denies any auditory, visual hallucinations. Denied any side effects from medications. Mental Status Exam: General Appearance: [Patient appears to have long hair, stated age is alert, directable and attempts to cooperate.] Behavior: [Patient is calmly seated without any agitated behavior.] mildly bizarre at times. Speech: Patient's speech is fluent and nonpressured. Mood/Affect: Mood is improving mildly, affect is congruent and constricted. Suicidality/Homicidality: Patient denies having any suicidal or homicidal ideation intent or plan. Perceptions: Patient denies any visual hallucinations [and denies any auditory hallucinations] Though content/process: Mildly bizarre at times which appears to be his baseline. Chronically poor insight. Appropriate today. Memory and concentration: AOX3, grossly intact for the purposes of this session Judgment and insight: Poor, Improving mildly Assessment/plan: -Continue with current assessment. -At this time patient does not meet criteria for inpatient psychiatric hospitalization. -ironing worker to work with patient for a safe and good discharge plan and placement as patient has had too many rehospitalizations for the same condition and leg wound. Would suggest AFC versus half-way if possible as patient is not meeting criteria for fpc. -Can continue with medications as prescribed including paliperidone, Cymbalta and trazodone as needed. Added Vistaril 25 mg every 6 hours when necessary for anxiety. Zyprexa 5 mg Anju's IM when necessary for acute agitation or acute psychosis. Discontinue Ativan. -Patient can follow up with [facility] once he is discharged from the hospital. Spoke with patient's nurse about his rendition in case and communicated plan. At this time psychiatry will sign off, please call with any questions.
[2020-12-28 15:08] VITALS: BMI 25.0
[2020-12-28 15:17] VITALS: BP 154/86; PULSE 73; TEMP 98.3
--- NOTE | 2020-12-28 17:46 | P.DS ---
Providers Date of admission: 12/26/20 02:32 Attending physician: Pierre Hanson Consults: 12/26/20 02:33 Consult Physician Routine Consulting Provider: Denver Parham Consult Reason/Comments: SI,depression Do you want consulting provider notified?: Yes 12/26/20 14:57 Consult Physician Routine Consulting Provider: Neli Larson Consult Reason/Comments: LLE wound/ Cellulitis Do you want consulting provider notified?: Yes Primary care physician: Rose Stauffer Hospital Course: Final diagnoses 1. Cellulitis left lower extremity 2. Chronic nonhealing wound left lower extremity; ID recommended local wound care with metahoney daily and oral Keflex on discharge patient is to follow-up 3. Uncontrolled hypertension; increased dose of amlodipine, blood pressure improved 4. COPD/asthma; not in exacerbation; continue not using inhalers 5. CAD/history of MS; by history; patient currently not on aspirin, beta blockers or statin therapy 6. Tobacco abuse; nicotine patch 21 mg daily; counseling done on need for cessation of smoking 7. Bipolar disorder; continue with home dose of Celexa, Invega and Desyrel 8. Anxiety; patient started on Vistaril as needed per psychiatry recommendations Discharge disposition Patient is working with on a discharge plan. Per patient is unable to find local placement for rehab. Patient has not seen Dr Rose in the office since 2011. Pt was requesting klonopin and ativan for anxiety, however he was evaluated by psychiatry and started on vistaril as needed. Pt can continue on cymbalta. Pt educated on medication compliance, compliance with follow-ups, and the need for [facility] on discharge. Hospital course Pt was admitted on the hospital on 12/26/2020 for chronic leg pain and cellulitis. Pt states that he has been homeless for the past few months since getting out of care home and his landlord kicking him out of his apartment. He has not followed up with his PCP Dr Rose since 2011 due to records at their office. Patient was started on IV abx per ID, however, on discharge ID recommended a course of antibiotic therapy with keflex. Pt was requesting 3 days of IV ABX and placement to rehab, however at this time, pt does not meet criteria as he is independent in his room. Pt was receiving IV ativan for anxiety. He was evaluated by psychiatric services who recommended medication changes for the patient. Sodium on admission was 136 which has normalized to 138. Covid was not detected, and serum ETOH <10. CBC and BMP were essentially WNL besides mentioned. VSS stable this admission, afebrile, 97% on room air, 73% NSR, and BP 150/80s. Pts amlodipine has been increased on discharge. Pt is working with social work on a discharge plan and resources will be given. Psychiatry is recommending that pt follow up with [facility] on discharge. 12/28/2020 Patient is discharged from a medical standpoint he has been given a few tablets of Vistaril on discharge. Patient needs to follow up with his PCP Dr Rose who he has not seen since 2011. Per social work, patient has had trouble with placement at local nursing homes, due to his choices patient is not a candidate for placement at these facilities any longer. Patient does not meet any inpatient requirements for rehabilitation at this time. Patient is recommended from ID for oral antibiotics on discharge. VSS, Pt denies chest pain, palpitations, cough, shortness of breath. Focal neurological examination is negative. +2 dorsalis pedis to the left foot, local wound care provided with marley per ID. Pts lungs are clear. Please see medication reconciliation for a list of current medications. Thank you for allowing us to participate in the care of this patient. Patient Condition at Discharge: Fair Plan - Discharge Summary Discharge Rx Participant: No New Discharge Prescriptions: New Cephalexin [Keflex] 500 mg PO Q8HR 7 Days #21 cap hydrOXYzine pamoate [Vistaril] 25 mg PO Q6HR PRN #8 cap PRN Reason: Anxiety Continue Paliperidone [Invega] 9 mg PO HS #90 tablet Magnesium Oxide [Mag-Ox] 400 mg PO BID 10 Days #20 tablet traZODone HCL [Desyrel] 50 mg PO HS PRN #30 tab PRN Reason: Insomnia Citalopram Hydrobromide [CeleXA] 20 mg PO DAILY #30 tab Nicotine 21Mg/24Hr Patch [Habitrol] 1 patch TRANSDERM DAILY PRN PRN Reason: Nicotine Cravings Changed amLODIPine [Norvasc] 10 mg PO DAILY #30 tab Discontinued levoFLOXacin 750 mg PO DAILY hydroCHLOROthiazide [Hydrodiuril] 50 mg PO DAILY tab Discharge Medication List Citalopram Hydrobromide [CeleXA] 20 mg PO DAILY #30 tab 12/18/20 [Rx] Magnesium Oxide [Mag-Ox] 400 mg PO BID 10 Days #20 tablet 12/18/20 [Rx] Paliperidone [Invega] 9 mg PO HS #90 tablet 12/18/20 [Rx] traZODone HCL [Desyrel] 50 mg PO HS PRN #30 tab 12/18/20 [Rx] Nicotine 21Mg/24Hr Patch [Habitrol] 1 patch TRANSDERM DAILY PRN 12/26/20 [History] Cephalexin [Keflex] 500 mg PO Q8HR 7 Days #21 cap 12/28/20 [Rx] amLODIPine [Norvasc] 10 mg PO DAILY #30 tab 12/28/20 [Rx] hydrOXYzine pamoate [Vistaril] 25 mg PO Q6HR PRN #8 cap 12/28/20 [Rx] Follow up Appointment(s)/Referral(s): Eh Rose MD [Primary Care Provider] - 1-2 days Neli Larson MD [STAFF PHYSICIAN] - 1 Week Activity/Diet/Wound Care/Special Instructions: Social work to give patient options on discharge due to patient being homeless Patient is to follow-up with Dr. Rose Patient to continue with tempehoney daily, local wound care with kerlex wrap Discharge Disposition: HOME SELF-CARE
--- NOTE | 2020-12-28 20:28 | P.PN ---
Progress Note - Text Progress Note Date: 12/28/20 REASON FOR FOLLOWUP: Left leg wound cellulitis. INTERVAL HISTORY: Patient remains to be afebrile. Pt is breathing comfortably. He is more awake and alert. Denies any chest pain, shortness of breath. No cough. No abdominal pain or worsening pain to the left leg wound area. PHYSICAL EXAMINATION: Blood pressure 150/80, pulse of 70, temperature 98.3. He is 93% on room air. General description is a middle-aged male lying in bed in no distress. Respiratory system: Unlabored breathing, clear to auscultation anteriorly. Heart S1, S2. Regular rate and rhythm. Abdomen soft, no tenderness. Left leg swelling persists. Redness has decreased. Minimal slough tissue at the wound base. LABS: reviewed DIAGNOSTIC IMPRESSION AND PLAN: Patient with left leg wound with secondary cellulitis. Transition to oral Keflex 500mg tid x 7 days on discharge. Local wound care with Medihoney followed by moist dressing to be changed daily. Pt demanding PICC and 6 weeks of IV antibiotics at [facility]
== END 2020-12-28 16:12 | disposition home or self-care (01) ==
LOC: EC 23:15 → 6NMEDSUR 12-26 02:32
PROVIDERS: ADMIT Hospitalist; ATTEND Hospitalist
DX: L03.116 Cellulitis of left lower limb (principal); M86.68 Other chronic osteomyelitis, other site; F10.139 Alcohol abuse with withdrawal, unspecified; R45.851 Suicidal ideations; G89.29 Other chronic pain; Z20.822 Contact with and (suspected) exposure to COVID-19; I25.10 Atherosclerotic heart disease of native coronary artery without angina pectoris; Z86.19 Personal history of other infectious and parasitic diseases; R53.83 Other fatigue; R29.6 Repeated falls; F32.9 Major depressive disorder, single episode, unspecified; J44.9 Chronic obstructive pulmonary disease, unspecified; F41.9 Anxiety disorder, unspecified; F43.10 Post-traumatic stress disorder, unspecified; Z59.0 Homelessness; K46.9 Unspecified abdominal hernia without obstruction or gangrene; F17.210 Nicotine dependence, cigarettes, uncomplicated; I10 Essential (primary) hypertension; I34.0 Nonrheumatic mitral (valve) insufficiency; I25.2 Old myocardial infarction; M19.90 Unspecified osteoarthritis, unspecified site; Z87.01 Personal history of pneumonia (recurrent); Z87.820 Personal history of traumatic brain injury; Z87.81 Personal history of (healed) traumatic fracture; Z86.14 Personal history of Methicillin resistant Staphylococcus aureus infection; Z98.890 Other specified postprocedural states; Z82.49 Family history of ischemic heart disease and other diseases of the circulatory system; Z82.5 Family history of asthma and other chronic lower respiratory diseases; Z79.899 Other long term (current) drug therapy; Z88.1 Allergy status to other antibiotic agents; Z88.5 Allergy status to narcotic agent; Z88.0 Allergy status to penicillin; Z88.2 Allergy status to sulfonamides
CPT/HCPCS: 96376 ×3; 96361; 96366 ×3; 96365; 96375; 99285; 36415; 80053; 80048 ×2; 82550; 83735; 84100; 85025 ×2; 87635; G0378 ×3; G0480; J2060 ×2; J2270 ×3; J0690 ×3; J0696; 80320

== ENCOUNTER 2021-01-01 21:30 | Emergency (ER) | payer MEDICARE, OTHER ==
[2021-01-01 21:44] VITALS: BP 114/69; PULSE 97; TEMP 98.6
[2021-01-01 23:08] VITALS: RESP 18
--- NOTE | 2021-01-02 00:50 | CT ---
EXAMINATION TYPE: CT brain cspine wo con DATE OF EXAM: 01/02/2021 COMPARISON: 08/30/2020 CT brain HISTORY: fall CT DLP: 777.4 mGycm Automated exposure control for dose reduction was used. Exam performed without contrast. There is some cerebral cortical atrophy. There is no mass effect nor midline shift. There is no sign of intracranial hemorrhage. There is some mucosal thickening in the frontal and ethmoid sinuses. Calv arium is intact. There is normal aeration of the mastoid sinuses. Cervical vertebra have normal alignment. Posterior elements are intact. Facet joints are intact. Ther e is degenerative disc space narrowing from C4 to C7 with spur formation. IMPRESSION: Spondylotic changes in the cervical spine. No fracture. Cerebral atrophy. No acute intracranial abnormality. Brain not changed compared to old exam. There is ethmoid and frontal sinusitis similar to old exam.
--- NOTE | 2021-01-02 00:54 | CT ---
EXAMINATION TYPE: CT facial bones wo con DATE OF EXAM: 01/02/2021 COMPARISON: None HISTORY: ETOH Pain CT DLP: 416.9 mGycm Automated exposure control for dose reduction was used. Images obtained from the bottom of the mandible to the top of the frontal sinuses Without contrast. the mandibular ring appears intact. Temporomandibular joints are intact. Zygomatic arches are intact. The maxilla appears intact. The orbital margins appear intact. I see no evidence of orbital blowout fracture. There is no retro-orbital mass. There is nondisplaced comminuted fracture of the nasal bone anteriorly. There is mucosal thickening in the frontal and ethmoid sinuses. IMPRESSION: There is frontal and ethmoid sinusitis without change. There is clearing of a large extent the right and left maxillary sinusitis compared to old exam. There is nasal bone fracture not changed compared to old exam. I see no definite acute nasal bone fracture.
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
== END 2021-01-02 02:15 | disposition home or self-care (01) ==
LOC: EC 21:30
DX: S09.93XA Unspecified injury of face, initial encounter (principal); F10.129 Alcohol abuse with intoxication, unspecified; S01.01XA Laceration without foreign body of scalp, initial encounter; F32.9 Major depressive disorder, single episode, unspecified; F41.9 Anxiety disorder, unspecified; F17.200 Nicotine dependence, unspecified, uncomplicated; J44.9 Chronic obstructive pulmonary disease, unspecified; I10 Essential (primary) hypertension; I25.2 Old myocardial infarction; M19.90 Unspecified osteoarthritis, unspecified site; Y90.9 Presence of alcohol in blood, level not specified; Y04.0XXA Assault by unarmed brawl or fight, initial encounter; Y92.828 Other wilderness area as the place of occurrence of the external cause
CPT/HCPCS: 70450; 70486; 72125; 99285

== ENCOUNTER 2021-02-05 01:02 | Emergency (ER) | payer MEDICARE, OTHER ==
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
[2021-02-05 02:51] VITALS: BP 141/79; PULSE 63; RESP 19; TEMP 97.5
== END 2021-02-05 05:30 | disposition home or self-care (01) ==
LOC: EC 01:02
DX: S81.802A Unspecified open wound, left lower leg, initial encounter (principal); G89.29 Other chronic pain; I10 Essential (primary) hypertension; J45.909 Unspecified asthma, uncomplicated; I25.2 Old myocardial infarction; M19.90 Unspecified osteoarthritis, unspecified site; F17.200 Nicotine dependence, unspecified, uncomplicated; F12.90 Cannabis use, unspecified, uncomplicated; Z88.2 Allergy status to sulfonamides; Z88.1 Allergy status to other antibiotic agents; Z88.5 Allergy status to narcotic agent; Z88.0 Allergy status to penicillin; Z90.89 Acquired absence of other organs; X58.XXXA Exposure to other specified factors, initial encounter
CPT/HCPCS: 99283

== ENCOUNTER 2021-02-22 12:10 | Inpatient (IN) | payer MEDICARE, OTHER ==
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
[2021-02-22 17:44] LABS: Basophils # (A) 0.1 k/uL (0-0.2); Basophils % (A) 1 %; Eosinophils # (A) 0.2 k/uL (0-0.7); Eosinophils % (A) 1 %; HCT 52.8 % (39.0-53.0); Lymphocytes # (A) 1.2 k/uL (1.0-4.8); Lymphocytes % (A) 9 %; MCH 33.4 pg (25.0-35.0); MCV 98.3 fL (80.0-100.0); Mean Platelet Volume 8.3; Monocytes # (A) 0.5 k/uL (0-1.0); Monocytes % (A) 4 %; Neutrophils # (A) 10.9 k/uL (1.3-7.7); Neutrophils % (A) 84 %; Platelet Count 202 k/uL (150-450); RBC 5.37 m/uL (4.30-5.90); RDW 12.8 % (11.5-15.5); WBC 12.9 k/uL (3.8-10.6)
[2021-02-22 17:49] LABS: HGB 17.9 gm/dL (13.0-17.5)
[2021-02-22 17:53] LABS: ALT 14 U/L (4-49); AST 29 U/L (17-59); African American GFR (CKD) >90 (>60 ml/min/1.73 sqM); Albumin 4.5 g/dL (3.5-5.0); Alkaline Phosphatase 96 U/L (38-126); Anion Gap 12 mmol/L; Blood Urea Nitrogen 4 mg/dL (9-20); Carbon Dioxide 22 mmol/L (22-30); Chloride 103 mmol/L (98-107); Glucose 98 mg/dL (74-99); Non-African American GFR(CKD) >90 (>60 ml/min/1.73 sqM); Sodium 137 mmol/L (137-145); Total Bilirubin 1.1 mg/dL (0.2-1.3); Total Protein 8.4 g/dL (6.3-8.2)
[2021-02-22 17:56] LABS: Potassium 4.4 mmol/L (3.5-5.1)
[2021-02-22] MEDS ORDERED: NALOXONE 0.4 MG/ML 1 ML VIAL IV PRN (18:18)
[2021-02-22] MEDS ORDERED: HYDROcodone/APAP 7.5-325MG 1 EACH TAB PO ONE (18:30)
[2021-02-22] MEDS ORDERED: ceFAZolin 1,000 MG VIAL (IM USE) IM STA (21:37)
[2021-02-22] MEDS ORDERED: NICOTINE 21MG/24HR PATCH TRANSDERM PRN (22:11)
[2021-02-22] MEDS ORDERED: traZODone HCL 50 MG TAB PO PRN (22:11)
[2021-02-22] MEDS ORDERED: hydrOXYzine pamoate 25 MG CAP PO PRN (22:11)
[2021-02-22] MEDS ORDERED: CITALOPRAM HYDROBROMIDE 20 MG TAB PO SCH (22:15)
[2021-02-22] MEDS: ALPRAZolam 0.5 MG TAB PO PRN (22:34)
[2021-02-22] MEDS: oxyCODONE-APAP 10-325MG 1 EACH TAB PO PRN (22:34)
[2021-02-22] MEDS: amLODIPine 10 MG TAB PO SCH (22:34)
[2021-02-22] MEDS: MAGNESIUM OXIDE 400 MG TAB PO SCH (22:35)
[2021-02-23] MEDS: ALPRAZolam 0.5 MG TAB PO PRN ×2 (04:30→10:50)
[2021-02-23] MEDS: oxyCODONE-APAP 10-325MG 1 EACH TAB PO PRN ×3 (04:30→17:31)
[2021-02-23] MEDS: MAGNESIUM OXIDE 400 MG TAB PO SCH ×2 (07:27→20:17)
[2021-02-23] MEDS ORDERED: busPIRone HCl 10 MG TAB PO PRN (11:54)
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
[2021-02-23] MEDS: DULoxetine HCL 30 MG CAPSULE.DR PO SCH (13:14)
[2021-02-23] MEDS: HEPARIN SODIUM,PORCINE/PF 5,000 UNIT/0.5 ML SYRINGE SQ SCH ×2 (13:56→20:21)
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
[2021-02-23] MEDS: QUEtiapine 50 MG TAB PO SCH (20:17)
[2021-02-23] MEDS: amLODIPine 10 MG TAB PO SCH (20:17)
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
[2021-02-24] MEDS: PANTOPRAZOLE 40 MG TABLET PO SCH (07:21)
[2021-02-24] MEDS: oxyCODONE-APAP 10-325MG 1 EACH TAB PO PRN ×2 (07:21→15:44)
[2021-02-24] MEDS: HEPARIN SODIUM,PORCINE/PF 5,000 UNIT/0.5 ML SYRINGE SQ SCH ×2 (09:45→20:42)
[2021-02-24] MEDS: DULoxetine HCL 30 MG CAPSULE.DR PO SCH (09:45)
[2021-02-24] MEDS: MAGNESIUM OXIDE 400 MG TAB PO SCH ×2 (09:45→20:41)
--- NOTE | 2021-02-24 10:18 | P.PN ---
Progress Note - Text Progress Note Date: 02/24/21 Interval History: Patient was seen today for psychiatric follow-up regarding patient's psychiatric condition. Patient was started on Seroquel and Cymbalta yesterday. Patient states that he was able to sleep throughout the night without any complaints. He claims that he is still feeling significant pain in his leg and claims that he feels hopeless at times and still depressed about his leg. He continues to plead with caption writer to get him into a group home and claims that "I've accepted that I need to go to a group home for the rest of my life". He was goal oriented and logical. He claims that his appetite continues to be poor. He was requesting xanax for his anxiety however caption writer spoke with him about the danger of having xanax with norco and informed patient that he can try buspar instead. At this time patient denies any current suicidal or homical ideations, intent or plan. Patient denies any auditory, visual hallucinations and denies any paranoia or delusions. Patient denies any side effects from the medications and has been compliant with meds. Mental Status Exam: General Appearance: Patient appears to have long diaz and hair, older than stated age is lethargic, attempts to be cooperative. Patient appears to have fair hygiene and grooming wearing hospital gown with fair eye contact. Behavior: Patient is not agitated and attempts to cooperate Speech: Patient's speech is more organized today. fluent, non-pressured Mood/Affect: Patient reports their mood is "depressed", affect is congruent and constricted Suicidality/Homicidality: Patient denies having any current suicidal or homicidal ideation intent or plan. Perceptions: Patient denies any visual hallucinations and denies any auditory hallucinations Though content/process: Rambles at times, logical, fairly organized. not endorsing any delusions. focused on medications and pain control Memory and concentration: AOX3, grossly intact for the purposes of this session. Judgment and insight: chronically poor IMPRESSIONS: Schizoaffective disorder, depressive type Cannabis use disorder non compliance with medication regimen homelessness Nicotine dependence PLAN: -At this time patient DOES NOT require inpatient psychaitric admission. -Delirium precautions recommended with patient including - avoiding use of narcotics and VISITOR SERVICES ASSISTANT sedatives, limit anticholinergic medications when possible, frequent re-orientation, minimize use of restraints, open window shades during the day and close them at night -Would recommend the following medication changes/additions: seroquel 50 mg daily at bedtime for psychosis/mood stabilization. increase cymbalta 60 mg daily for mood/anxiety/pain. incr buspar 15 mg tid prn for anxiety -caption writer spoke with SW over the phone about patients case and different options for placement. SW will be looking into NH options and will speak with patient about it later. -Psychiatry will continue to follow along. -Communicated plan to patient's nurse -Please contact with any questions.
[2021-02-24 10:56] LABS: Basophils # (A) 0.03 X 10*3/uL (0.00-0.10); Basophils % (A) 0.3 %; Eosinophils # (A) 0.31 X 10*3/uL (0.04-0.35); Eosinophils % (A) 3.4 %; HCT 51.1 % (39.6-50.0); Lymphocytes # (A) 1.24 X 10*3/uL (0.90-5.00); Lymphocytes % (A) 13.4 %; MCH 31.7 pg (27.0-32.0); MCHC 33.3 g/dL (32.0-37.0); MCV 95.2 fL (80.0-97.0); Mean Platelet Volume 10.8 fL (9.5-12.2); Monocytes % (A) 7.6 %; Neutrophils # (A) 6.88 X 10*3/uL (1.80-7.70); Neutrophils % (A) 74.6 %; Platelet Count 186 X 10*3/uL (140-440); RBC 5.37 X 10*6/uL (4.40-5.60); RDW 13.2 % (11.5-14.5); WBC 9.22 X 10*3/uL (4.50-10.00)
[2021-02-24 11:16] LABS: Anion Gap 13.3 mmol/L (4.00-12.00); BUN/Creat Ratio 8.67 Ratio (12.00-20.00); Blood Urea Nitrogen 5.2 mg/dL (9.0-27.0); Calcium 9.2 mg/dL (8.7-10.3); Carbon Dioxide 21.7 mmol/L (21.6-31.8)
[2021-02-24] MEDS: MULTIVITAMINS, THERA 1 EACH TAB PO SCH (12:35)
[2021-02-24 15:02] LABS: C Reactive Protein 0.8 mg/dL (0.00-0.80)
[2021-02-24] MEDS: HYDROPHILIC CREAM 180 GM TUBE TOPICAL SCH (17:07)
[2021-02-24 17:21] LABS: Erythrocyte Sedimentation Rate 3 mm/Hr (0-20)
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
[2021-02-24] MEDS: amLODIPine 10 MG TAB PO SCH (20:42)
[2021-02-25] MEDS: QUEtiapine 50 MG TAB PO SCH (03:39)
[2021-02-25] MEDS: oxyCODONE-APAP 10-325MG 1 EACH TAB PO PRN ×4 (04:32→23:37)
[2021-02-25] MEDS: PANTOPRAZOLE 40 MG TABLET PO SCH (09:28)
[2021-02-25] MEDS: CEFEPIME 2 GM in SODIUM CHLORIDE 0.9% 100 ML IVPB SCH ×3 (09:28→21:01)
[2021-02-25] MEDS: MAGNESIUM OXIDE 400 MG TAB PO SCH ×2 (09:28→21:01)
[2021-02-25] MEDS: DULoxetine HCL 60 MG CAPSULE.DR PO SCH (09:28)
[2021-02-25] MEDS: HEPARIN SODIUM,PORCINE/PF 5,000 UNIT/0.5 ML SYRINGE SQ SCH ×2 (09:29→18:48)
--- NOTE | 2021-02-25 10:18 | PN ---
PROGRESS NOTE DATE OF SERVICE: 02/24/2021 REASON FOR FOLLOWUP: Left lower extremity wound with secondary cellulitis. INTERVAL HISTORY: The patient is afebrile, has been breathing comfortably. The patient has been started on some psych medication and seems to be slightly sleepy today. Still complaining of pain to the left leg area. No chest pain, shortness of breath or cough. No abdominal pain or diarrhea. PHYSICAL EXAMINATION: Blood pressure is 115/74 with a pulse of 62, temperature 98.1. He is 95% on room air. General description is a middle-aged male lying in bed in no distress. Respiratory system: Unlabored breathing, clear to auscultation anteriorly. Heart S1, S2. Regular rate and rhythm. Abdomen soft, no tenderness. Left leg with some swelling, minimal redness, no drainage. LABS: Hemoglobin is 17, white count 9.2, creatinine is 0.6. Local culture with Enterobacter, Morganella and Staphylococcus aureus. DIAGNOSTIC IMPRESSION AND PLAN: Patient with a left leg wound with secondary cellulitis. Culture with multiple pathogens, including MSSA, Morganella. Patient did have a documented allergy to cefepime as a rash; however, the patient has tolerated cefazolin. Clinically doubt true cefepime allergy. Antibiotic will be adjusted to cefepime to cover for the Gram- negative in addition to the MSSA. Local care with Medihoney and Triad cream as per discussion with nursing staff. Continue with supportive care. MMYUDYL / EDUARD: [id number] /
[2021-02-25] MEDS: MULTIVITAMINS, THERA 1 EACH TAB PO SCH (11:46)
--- NOTE | 2021-02-25 12:24 | P.PN ---
Progress Note - Text Progress Note Date: 02/25/21 Interval History: Patient was seen today for psychiatric follow-up regarding patient's psychiatric condition. Patient was noted to have refused Seroquel last night. Patient took his Cymbalta this morning. Patient was seen at the bedside and agreeable to speak to group underwriter. He claims that his mood is "about the same" however does state that the Cymbalta has been helping him. He continues to complain of pain and him wanting to go to a intermediate. He claims that he does not want to go to a intermediate in [place]. He states that he would [facility] He claims that he did not sleep well last night due to refusing the Seroquel however was agreeable to take a 25 mg dose instead which was half the dose of before. He was fairly goal oriented and logical today. He claims that his anxiety has been improving. At this time patient denies any current suicidal or homical ideations, intent or plan. Patient denies any auditory, visual hallucinations and denies any paranoia or delusions. Patient denies any side effects from the medications and has been compliant with meds. Mental Status Exam: General Appearance: Patient appears to have long diaz and hair, older than stated age is alert, attempts to be cooperative. Patient appears to have fair hygiene and grooming wearing hospital gown with fair eye contact. Behavior: Patient is not agitated and attempts to cooperate Speech: Patient's speech is more organized today. fluent, non-pressured Mood/Affect: Patient reports their mood is "the same", affect is congruent and constricted Suicidality/Homicidality: Patient denies having any current suicidal or homicidal ideation intent or plan. Perceptions: Patient denies any visual hallucinations and denies any auditory hallucinations Though content/process: logical, fairly organized. not endorsing any delusions. focused on medications and pain control and also placement Memory and concentration: AOX3, grossly intact for the purposes of this session. Judgment and insight: chronically poor, improving mildly IMPRESSIONS: Schizoaffective disorder, depressive type Cannabis use disorder non compliance with medication regimen homelessness Nicotine dependence PLAN: -At this time patient DOES NOT require inpatient psychaitric admission. -Delirium precautions recommended with patient including - avoiding use of narcotics and PUBLIC WELFARE DIRECTOR sedatives, limit anticholinergic medications when possible, frequent re-orientation, minimize use of restraints, open window shades during the day and close them at night -Would recommend the following medication changes/additions: decreased seroquel 25 mg daily at bedtime for psychosis/mood stabilization. cymbalta 60 mg daily for mood/anxiety/pain. buspar 15 mg tid prn for anxiety -group underwriter spoke with patient once again today about his NH placement options and he states that he does not want to go any NH in [place] and wants to [facility] any [facility]. -Psychiatry will sign off at this time. -Communicated plan to patient's nurse -Please contact with any questions.
[2021-02-25] MEDS: HYDROPHILIC CREAM 180 GM TUBE TOPICAL SCH (15:49)
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
[2021-02-25] MEDS: NICOTINE 21MG/24HR PATCH TRANSDERM SCH (17:34)
[2021-02-25] MEDS: busPIRone HCl 5 MG TAB PO PRN (18:17)
[2021-02-25] MEDS: amLODIPine 10 MG TAB PO SCH (21:01)
[2021-02-25] MEDS: QUEtiapine 25 MG TAB PO SCH (21:01)
--- NOTE | 2021-02-25 23:03 | PN ---
PROGRESS NOTE DATE OF SERVICE: 02/25/2021 REASON FOR FOLLOWUP: Left leg wound and cellulitis. INTERVAL HISTORY: The patient is afebrile. The patient is currently breathing comfortably. Denies having any chest pain, shortness of breath or cough. No abdominal pain or worsening pain to the left leg. PHYSICAL EXAMINATION: On examination, blood pressure 132/75, pulse of 76, temperature 98.6. He is 95% on room air. General description is a middle-aged male lying in bed in no distress. Respiratory system: Unlabored breathing, clear to auscultation anteriorly. Heart S1, S2. Regular rate and rhythm. Abdomen soft, no tenderness. Left leg is currently dressed. No obvious drainage on the dressing. LABS: Hemoglobin 17, white count 9.22, creatinine 0.6. DIAGNOSTIC IMPRESSION AND PLAN: Patient with acute left lower extremity cellulitis with a chronic nonhealing wound. Culture with MSSA Bactrim. Patient is covered with cefepime, which the patient is tolerating. Cefepime allergy should be taken off the chart. Continue with supportive care. MMODL / IJN: [id number] /
[2021-02-26] MEDS: QUEtiapine 25 MG TAB PO SCH ×2 (04:47→20:08)
[2021-02-26] MEDS: DULoxetine HCL 60 MG CAPSULE.DR PO SCH (07:53)
[2021-02-26] MEDS: oxyCODONE-APAP 10-325MG 1 EACH TAB PO PRN ×3 (07:53→20:06)
[2021-02-26] MEDS: PANTOPRAZOLE 40 MG TABLET PO SCH (07:53)
[2021-02-26] MEDS: CEFEPIME 2 GM in SODIUM CHLORIDE 0.9% 100 ML IVPB SCH ×2 (07:54→16:17)
[2021-02-26] MEDS: HEPARIN SODIUM,PORCINE/PF 5,000 UNIT/0.5 ML SYRINGE SQ SCH ×2 (07:54→20:08)
[2021-02-26] MEDS: MAGNESIUM OXIDE 400 MG TAB PO SCH ×2 (07:54→20:08)
[2021-02-26] MEDS: NICOTINE 21MG/24HR PATCH TRANSDERM SCH (07:55)
[2021-02-26] MEDS: busPIRone HCl 5 MG TAB PO PRN (10:23)
[2021-02-26] MEDS: MULTIVITAMINS, THERA 1 EACH TAB PO SCH (14:09)
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
[2021-02-26] MEDS: HYDROPHILIC CREAM 180 GM TUBE TOPICAL SCH (16:18)
--- NOTE | 2021-02-26 17:55 | PN ---
PROGRESS NOTE DATE OF SERVICE: 02/26/2021 REASON FOR FOLLOWUP: Left leg wound and cellulitis. INTERVAL HISTORY: The patient is afebrile. The patient is currently breathing comfortably. Seems to be not happy with as usual. Mentioned nothing is helping. No chest pain, shortness of breath or cough. No abdominal pain or worsening pain to the left knee. PHYSICAL EXAMINATION: Blood pressure 131/78 with a pulse of 71, temperature 98. He is 96% on room air. General description is a middle-aged male lying in bed in no distress. Respiratory system: Unlabored breathing, clear to auscultation anteriorly. Heart S1, S2. Regular rate and rhythm. Abdomen soft, no tenderness. Left leg is currently dressed. No drainage on the dressing. LABS: No new labs have been obtained today. DIAGNOSTIC IMPRESSION AND PLAN: Patient with left leg wound with secondary cellulitis. Culture with multiple pathogens, including Enterobacter, Morganella and MSSA. Finishing therapy with cefepime 2 grams q.8 for 2 weeks with close outpatient followup. MMODL / IJN: [id number] /
[2021-02-26] MEDS: amLODIPine 10 MG TAB PO SCH (20:07)
[2021-02-27] MEDS: CEFEPIME 2 GM in SODIUM CHLORIDE 0.9% 100 ML IVPB SCH ×4 (00:07→23:33)
[2021-02-27] MEDS: busPIRone HCl 5 MG TAB PO PRN ×3 (00:45→16:11)
[2021-02-27] MEDS: oxyCODONE-APAP 10-325MG 1 EACH TAB PO PRN ×4 (02:08→20:18)
[2021-02-27] MEDS: NICOTINE 21MG/24HR PATCH TRANSDERM SCH (08:15)
[2021-02-27] MEDS: PANTOPRAZOLE 40 MG TABLET PO SCH (08:16)
[2021-02-27] MEDS: MAGNESIUM OXIDE 400 MG TAB PO SCH ×2 (08:16→20:20)
[2021-02-27] MEDS: DULoxetine HCL 60 MG CAPSULE.DR PO SCH (08:16)
[2021-02-27] MEDS: HEPARIN SODIUM,PORCINE/PF 5,000 UNIT/0.5 ML SYRINGE SQ SCH ×2 (08:17→20:20)
[2021-02-27] MEDS: MULTIVITAMINS, THERA 1 EACH TAB PO SCH (12:08)
[2021-02-27] MEDS ORDERED: TEMAZEPAM 15 MG CAP PO PRN (12:31)
[2021-02-27] MEDS: HYDROPHILIC CREAM 180 GM TUBE TOPICAL SCH (16:12)
--- NOTE | 2021-02-27 20:19 | PN ---
PROGRESS NOTE DATE OF SERVICE: 02/27/2021 REASON FOR FOLLOWUP: Left leg wound and cellulitis. INTERVAL HISTORY: The patient is afebrile. The patient is breathing comfortably. Still complaining of everything not good in life, though did mention that overall left leg pain and discomfort has decreased in intensity. No diarrhea. PHYSICAL EXAMINATION: His blood pressure is 116/76, pulse of 61, temperature 97.9. He is 93% on room air. General description is a middle-aged male lying in bed in no distress. Respiratory system: Unlabored breathing, clear to auscultation anteriorly. Heart S1, S2. Regular rate and rhythm. Abdomen soft, no tenderness. Left leg is currently dressed. No obvious drainage on the dressing. LABS: No new labs have been obtained today. DIAGNOSTIC IMPRESSION AND PLAN: Patient with left leg wound with secondary cellulitis. Culture positive for Enterobacter, Morganella, MSSA, covered with cefepime. Local care with [facility]. Continue supportive care. MMODL / IJN: [id number] /
[2021-02-27] MEDS: QUEtiapine 25 MG TAB PO SCH (20:20)
[2021-02-27] MEDS: amLODIPine 10 MG TAB PO SCH (20:20)
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
[2021-02-28] MEDS: oxyCODONE-APAP 10-325MG 1 EACH TAB PO PRN ×4 (02:04→20:53)
[2021-02-28] MEDS: CEFEPIME 2 GM in SODIUM CHLORIDE 0.9% 100 ML IVPB SCH ×3 (08:04→23:58)
[2021-02-28] MEDS: PANTOPRAZOLE 40 MG TABLET PO SCH (08:27)
[2021-02-28] MEDS: NICOTINE 21MG/24HR PATCH TRANSDERM SCH (08:27)
[2021-02-28] MEDS: DULoxetine HCL 60 MG CAPSULE.DR PO SCH (08:27)
[2021-02-28] MEDS: MAGNESIUM OXIDE 400 MG TAB PO SCH ×2 (08:27→20:56)
[2021-02-28] MEDS: MULTIVITAMINS, THERA 1 EACH TAB PO SCH (12:03)
[2021-02-28] MEDS: HEPARIN SODIUM,PORCINE/PF 5,000 UNIT/0.5 ML SYRINGE SQ SCH ×2 (12:03→20:55)
[2021-02-28] MEDS: busPIRone HCl 5 MG TAB PO PRN ×2 (12:04→18:28)
[2021-02-28] MEDS: HYDROPHILIC CREAM 180 GM TUBE TOPICAL SCH (16:33)
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
[2021-02-28] MEDS: amLODIPine 10 MG TAB PO SCH (20:57)
[2021-02-28] MEDS: QUEtiapine 25 MG TAB PO SCH (20:57)
[2021-03-01] MEDS: oxyCODONE-APAP 10-325MG 1 EACH TAB PO PRN ×2 (06:24→12:11)
[2021-03-01] MEDS: busPIRone HCl 5 MG TAB PO PRN (06:27)
[2021-03-01 08:09] VITALS: BP 136/73; PULSE 57; RESP 18; TEMP 98.6
--- NOTE | 2021-03-01 08:25 | PN ---
PROGRESS NOTE DATE OF SERVICE: 02/28/2021 REASON FOR FOLLOWUP: Left leg wound and cellulitis. INTERVAL HISTORY: The patient is afebrile. The patient is breathing comfortably. The patient denies having any chest pain, shortness of breath or cough. No abdominal pain or any worsening pain to the left foot wound area. PHYSICAL EXAMINATION: Blood pressure 147/77 with a pulse of 57, temperature 98. He is 97% on room air. General description is an elderly male lying in bed in no distress. Respiratory system: Unlabored breathing, clear to auscultation anteriorly. Heart S1, S2. Regular rate and rhythm. Abdomen soft, no tenderness. Left is currently dressed. No obvious drainage on the dressing. LABS: No new labs have been obtained today. DIAGNOSTIC IMPRESSION AND PLAN: Patient with left leg wound with secondary cellulitis. Culture with multiple pathogens. Patient is covered with cefepime. Plan is for a week of antibiotics and close outpatient followup. MMODL / IJN: [id number] /
[2021-03-01] MEDS: NICOTINE 21MG/24HR PATCH TRANSDERM SCH (08:44)
[2021-03-01] MEDS: CEFEPIME 2 GM in SODIUM CHLORIDE 0.9% 100 ML IVPB SCH (08:44)
[2021-03-01] MEDS: HEPARIN SODIUM,PORCINE/PF 5,000 UNIT/0.5 ML SYRINGE SQ SCH (08:45)
[2021-03-01] MEDS: MULTIVITAMINS, THERA 1 EACH TAB PO SCH (08:45)
[2021-03-01] MEDS: DULoxetine HCL 60 MG CAPSULE.DR PO SCH (08:46)
[2021-03-01] MEDS: MAGNESIUM OXIDE 400 MG TAB PO SCH (08:46)
[2021-03-01] MEDS: PANTOPRAZOLE 40 MG TABLET PO SCH (08:46)
[2021-03-01] MEDS: HYDROPHILIC CREAM 180 GM TUBE TOPICAL SCH (08:46)
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
--- NOTE | 2021-03-01 14:58 | PN ---
PROGRESS NOTE DATE OF SERVICE: 03/01/2021 REASON FOR FOLLOWUP: Left lower extremity wound and cellulitis. INTERVAL HISTORY: Patient is currently afebrile, breathing comfortably. No chest pain, shortness of breath or cough. No abdominal pain or any worsening pain to the left leg area. EXAMINATION: Blood pressure 136/73, pulse of 57, temperature 98.6. She is 95%. General description is a middle-aged male lying in bed in no distress. Respiratory system: Unlabored breathing clear to auscultation anteriorly. Heart S1, S2. Regular rate and rhythm. Abdomen soft, no tenderness. Left leg is currently dressed. No obvious drainage on the dressing. DIAGNOSTIC IMPRESSION AND PLAN: Patient with left leg wound with secondary cellulitis. Culture with multiple pathogen. Orthopedic surgery plan to finish the course of therapy. Close outpatient follow up. KRISTAN / IJN: [id number] /
== END 2021-03-01 12:41 | DRG 603 ==
LOC: EC 12:10 → 6NMEDSUR 20:37 → OBSVTOIN 02-23 11:16
PROVIDERS: ADMIT Internal Medicine; ATTEND Internal Medicine
PROC: 05HF33Z Insertion of Infusion Device into Left Cephalic Vein, Percutaneous Approach (ICD-10-PCS; principal; 2021-02-23 09:30)
DX: L03.116 Cellulitis of left lower limb (principal); R45.851 Suicidal ideations; F12.10 Cannabis abuse, uncomplicated; F17.200 Nicotine dependence, unspecified, uncomplicated; F25.1 Schizoaffective disorder, depressive type; F43.10 Post-traumatic stress disorder, unspecified; I10 Essential (primary) hypertension; Z20.822 Contact with and (suspected) exposure to COVID-19; F32.9 Major depressive disorder, single episode, unspecified; I25.2 Old myocardial infarction; J44.9 Chronic obstructive pulmonary disease, unspecified; Z59.00 Homelessness unspecified; Z63.8 Other specified problems related to primary support group; Z79.899 Other long term (current) drug therapy; Z82.49 Family history of ischemic heart disease and other diseases of the circulatory system; Z82.5 Family history of asthma and other chronic lower respiratory diseases; Z86.14 Personal history of Methicillin resistant Staphylococcus aureus infection; Z87.01 Personal history of pneumonia (recurrent); Z88.1 Allergy status to other antibiotic agents; Z91.14 Patient's other noncompliance with medication regimen; Z91.19 Patient's noncompliance with other medical treatment and regimen; Z88.2 Allergy status to sulfonamides; Z88.5 Allergy status to narcotic agent; Z88.8 Allergy status to other drugs, medicaments and biological substances
CPT/HCPCS: 36410; 36415; 76937; 80048; 80053; 85025; 85652; 86140; 87070; 87077; 87186; 87205; 87635; 99285

== ENCOUNTER 2021-06-03 19:29 | Inpatient (IN) | payer MEDICARE, OTHER ==
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
[2021-06-04 01:05] LABS: Amphetamine Screen,Urine Not Detected (NotDetected); Barbiturate Screen,Urine Not Detected (NotDetected); Benzodiazepines Screen,Urine Not Detected (NotDetected); Cocaine Screen,Urine Not Detected (NotDetected); Methadone Screen, Urine Not Detected (NotDetected); Opiate Screen,Urine Not Detected (NotDetected); Oxycodone Screen, Urine Not Detected (NotDetected); Phencyclidine Screen,Urine Not Detected (NotDetected); Tricyclic Antidepressant,Urine Not Detected (NotDetected); Urn Cannabinoid Scrn Not Detected (NotDetected)
[2021-06-04 01:33] LABS: Basophils # (A) 0.1 k/uL (0-0.2); Basophils % (A) 1 %; Eosinophils # (A) 0.3 k/uL (0-0.7); Eosinophils % (A) 4 %; HCT 46.5 % (39.0-53.0); Lymphocytes # (A) 2.6 k/uL (1.0-4.8); Lymphocytes % (A) 35 %; MCH 33.7 pg (25.0-35.0); MCHC 34.3 g/dL (31.0-37.0); Mean Platelet Volume 7.7; Monocytes # (A) 0.5 k/uL (0-1.0); Monocytes % (A) 7 %; Neutrophils # (A) 3.8 k/uL (1.3-7.7); Neutrophils % (A) 51 %; Platelet Count 254 k/uL (150-450); RBC 4.75 m/uL (4.30-5.90); WBC 7.5 k/uL (3.8-10.6)
[2021-06-04 01:42] LABS: ALT 24 U/L (4-49); AST 33 U/L (17-59); Acetaminophen <10.0 ug/mL; African American GFR (CKD) >90 (>60 ml/min/1.73 sqM); Albumin 4.5 g/dL (3.5-5.0); Alkaline Phosphatase 46 U/L (38-126); Anion Gap 14 mmol/L; Blood Urea Nitrogen 7 mg/dL (9-20); Calcium 9.7 mg/dL (8.4-10.2); Carbon Dioxide 20 mmol/L (22-30); Chloride 105 mmol/L (98-107); Glucose 82 mg/dL (74-99); Non-African American GFR(CKD) >90 (>60 ml/min/1.73 sqM); Potassium 4.5 mmol/L (3.5-5.1); Salicylate <1.0 mg/dL; Sodium 139 mmol/L (137-145); Total Bilirubin 0.8 mg/dL (0.2-1.3); Total Protein 7.6 g/dL (6.3-8.2)
[2021-06-04 01:43] LABS: Alcohol 126 mg/dL
[2021-06-04] MEDS ORDERED: MAG HYDROX/AL HYDROX/SIMETH 30 ML CUP PO PRN (04:22)
[2021-06-04] MEDS ORDERED: MAGNESIUM HYDROXIDE 2,400 MG/10 ML CUP PO PRN (04:22)
[2021-06-04] MEDS ORDERED: HALOPERIDOL LACTATE 5 MG/ML 1 ML VIAL IM PRN (04:22)
[2021-06-04] MEDS ORDERED: LORazepam 2 MG/ML INJ IM PRN (04:26)
[2021-06-04 04:47] LABS: Appearance,Urine Clear (Clear); Bilirubin,Urine Negative (Negative); Blood,Urine Negative (Negative); Color,Urine Light Yellow; Glucose,Urine (UA) Negative (Negative); Ketones,Urine Negative (Negative); Leukocyte Esterase,Urine Negative (Negative); Nitrite,Urine Negative (Negative); PH, Urine 5.5 (5.0-8.0); Protein,Urine Trace (Negative); Specific Gravity,Urine 1.003 (1.001-1.035); Urobilinogen,Urine <2.0 mg/dL (<2.0)
[2021-06-04] MEDS: NICOTINE 14MG/24HR PATCH TRANSDERM SCH (09:21)
[2021-06-04] MEDS: ACETAMINOPHEN TAB 325 MG TAB PO PRN ×2 (12:05→20:13)
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
[2021-06-04] MEDS: ARIPiprazole 5 MG TAB PO SCH (15:48)
[2021-06-04] MEDS: PANTOPRAZOLE 40 MG TABLET PO SCH (15:48)
[2021-06-04] MEDS: DULoxetine HCL 30 MG CAPSULE.DR PO SCH (15:48)
[2021-06-04] MEDS: lisinopriL 20 MG TAB PO SCH (15:49)
[2021-06-04] MEDS ORDERED: traZODone HCL 50 MG TAB PO SCH (21:00)
--- NOTE | 2021-06-04 23:39 | P.PN ---
Progress Note - Text Progress Note Date: 06/04/21 The patient refused to be seen or examined. Will attempt again tomorrow.
[2021-06-05] MEDS: NICOTINE 14MG/24HR PATCH TRANSDERM SCH (08:41)
[2021-06-05] MEDS: DULoxetine HCL 30 MG CAPSULE.DR PO SCH (08:42)
[2021-06-05] MEDS: ARIPiprazole 5 MG TAB PO SCH (08:42)
[2021-06-05] MEDS: lisinopriL 20 MG TAB PO SCH (08:42)
[2021-06-05] MEDS: PANTOPRAZOLE 40 MG TABLET PO SCH (08:42)
[2021-06-05] MEDS: ACETAMINOPHEN TAB 325 MG TAB PO PRN ×3 (08:43→21:24)
--- NOTE | 2021-06-05 13:23 | P.PN ---
Progress Note - Text Progress Note Date: 06/05/21 Interval History: Patient was seen in the office with the door open and was directable and agreeable to speak with parts data writer in the office. This patient stated that he does not sleep well and he was on and they higher dose of her trazodone. At this time patient denies any suicidal or homical ideations, intent or plan. Patient denies any auditory, visual hallucinations and denies any paranoia or delusions. Patient denies any side effects from the medications and has been compliant with meds. Mental Status Exam: General Appearance: Patient appears to be stated age is alert, directable, and cooperative. Behavior: Patient is calmly seated without any agitated behavior. Speech: Patient's speech is fluent and nonpressured. Mood/Affect: Mood is improving mildly, affect is congruent and constricted. Suicidality/Homicidality: Patient denies having any suicidal or homicidal ideation intent or plan. Perceptions: Patient denies any visual hallucinations and denies any auditory hallucinations Though content/process: There is no evidence of any delusional thought content and thought process is linear and goal-directed. Memory and concentration: AOX3, grossly intact for the purposes of this session Judgment and insight: Improving mildly Assessment This patient continues to have residual symptoms of depression necessitating hospitalization. Plan: -Patient continues to meet criteria for inpatient psychiatric admission for symptom stabilization and safety. -Medications: Continue medication as before and I will review his trazodone. -When necessary Ativan and Haldol for agitation/aggression. -SW on board for discharge planning. Encouraged the patient to participate in milieu.
[2021-06-05] MEDS: traZODone HCL 100 MG TAB PO SCH (20:32)
[2021-06-05] MEDS: busPIRone HCl 5 MG TAB PO PRN (20:34)
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
[2021-06-06] MEDS: DULoxetine HCL 30 MG CAPSULE.DR PO SCH (08:03)
[2021-06-06] MEDS: lisinopriL 20 MG TAB PO SCH (08:03)
[2021-06-06] MEDS: PANTOPRAZOLE 40 MG TABLET PO SCH (08:03)
[2021-06-06] MEDS: NICOTINE 14MG/24HR PATCH TRANSDERM SCH (08:03)
[2021-06-06] MEDS: ARIPiprazole 5 MG TAB PO SCH (08:03)
[2021-06-06] MEDS: busPIRone HCl 5 MG TAB PO PRN ×2 (08:04→17:05)
[2021-06-06] MEDS: ACETAMINOPHEN TAB 325 MG TAB PO PRN (11:06)
--- NOTE | 2021-06-06 11:25 | P.PN ---
Progress Note - Text Progress Note Date: 06/06/21 Interval History: Patient was seen in his room and was directable and agreeable to speak with typewriter operator automatic. This patient stated that he still has difficulty sleeping and the dose of her trazodone he is taking is not helping him.. At this time patient denies any suicidal or homical ideations, intent or plan. Patient denies any auditory, visual hallucinations and denies any paranoia or delusions. Patient denies any side effects from the medications and has been compliant with meds. Mental Status Exam: General Appearance: Patient appears to be stated age is alert, directable, and cooperative. He has a significant disability to his leg. Behavior: Patient is calmly seated without any agitated behavior. Speech: Patient's speech is fluent and nonpressured. Mood/Affect: Mood is improving mildly, affect is congruent and constricted. Suicidality/Homicidality: Patient denies having any suicidal or homicidal ideation intent or plan. Perceptions: Patient denies any visual hallucinations and denies any auditory hallucinations Though content/process: There is no evidence of any delusional thought content and thought process is linear and goal-directed. Memory and concentration: AOX3, grossly intact for the purposes of this session Judgment and insight: Improving mildly Assessment Patient still has considerable psychopathology. He stated that if he is on Abilify he wants to go off of it because it does not help him and would rather take Haldol. This patient is a not stable as yet and requires continued hospitalization. Plan: -Patient continues to meet criteria for inpatient psychiatric admission for symptom stabilization and safety. -Medications: Continue medication as before and I will review his her trazodone and Abilify. -When necessary Ativan and Haldol for agitation/aggression. -SW on board for discharge planning. Encouraged the patient to participate in milieu.
[2021-06-06] MEDS: LORazepam 1 MG TAB PO PRN ×2 (12:54→20:55)
[2021-06-06] MEDS: haloperidoL 5 MG TAB PO PRN (12:54)
[2021-06-06] MEDS: traZODone HCL 100 MG TAB PO SCH (20:53)
[2021-06-07] MEDS: DULoxetine HCL 30 MG CAPSULE.DR PO SCH (07:53)
[2021-06-07] MEDS: lisinopriL 20 MG TAB PO SCH (07:53)
[2021-06-07] MEDS: NICOTINE 14MG/24HR PATCH TRANSDERM SCH (07:53)
[2021-06-07] MEDS: PANTOPRAZOLE 40 MG TABLET PO SCH (07:53)
[2021-06-07] MEDS: LORazepam 1 MG TAB PO PRN ×2 (07:55→15:36)
--- NOTE | 2021-06-07 11:29 | P.PN ---
Progress Note - Text Progress Note Date: 06/07/21 Interval History: Patient was seen lying in his bed today and was directable and agreeable to randa garcia with headline writer. Patient was fairly directable during conversation. He continues to state that he feels depressed and somewhat anxious. He continues to speak about his pain. He complains that his big focus is worrying about where she will be going after discharge. He claims that he wants to stay in the hospital or go to a group home where he can be "taken care of". He states that she has not been going to many groups at all however we'll plan to go to some today. He appears to have an improvement in his thought process is not exhibiting any gross psychotic symptoms. He was fairly directable during conversation and appropriate. He claims that he did not sleep well last night. He is agreeable to continue on taking his medications. He is asking about when he can speak to the bioinformatics specialist. At this time patient denies any suicidal or homical ideations, intent or plan. Patient denies any auditory, visual hallucinations and denies any paranoia or delusions. Patient denies any side effects from the medications and has been compliant with meds. Mental Status Exam: General Appearance: Patient appears to have long diaz and hair, disheveled appearance, older than stated age is alert, attempts to be cooperative. Patient appears to have poor hygiene and grooming wearing hospital gown Behavior: Patient is not agitated and attempts to cooperate. Anxious, improving mildly. Speech: Patient's speech is more organized today. fluent, non pressured Mood/Affect: Patient reports their mood is "processed", affect is congruent Suicidality/Homicidality: Patient denies having any current homicidal ideation intent or plan. He denies any suicidal thoughts, no intent or plan. Perceptions: Patient denies any visual hallucinations and denies any auditory hallucinations Though content/process: Rambles at times, more organized today. not endorsing any delusions. Memory and concentration: AOX3, grossly intact for the purposes of this session. Judgment and insight: chronically poor IMPRESSIONS: Schizoaffective disorder, depressive type Cannabis use disorder non compliance with medication regimen homelessness Nicotine dependence Plan: -Patient continues to meet criteria for inpatient psychiatric admission for symptom stabilization and safety. Patient has not signed adult voluntary form and was placed in patient's chart. -Medications: Increase Cymbalta to 60 mg daily for mood/that he/pain, increased trazodone to 150 mg daily at bedtime for insomnia/mood. Continue BuSpar 15 mg twice a day when necessary for anxiety. -When necessary Ativan and Haldol for agitation/aggression. -CIWA protocol with when necessary Ativan for alcohol withdrawal. -NRT - nicotine patch -SW on board for discharge planning. Encouraged the patient to participate in milieu. Currently awaiting deferral with divorce attorney and court date. Patient will be encouraged to be connected with [facility] to have access to [place] benefits including possible placement long-term once he is discharged. We'll be likely planning to discharge the [facility] as patient is currently homeless.
[2021-06-07] MEDS: ACETAMINOPHEN TAB 325 MG TAB PO PRN (15:36)
[2021-06-07] MEDS: busPIRone HCl 5 MG TAB PO PRN (15:38)
[2021-06-07] MEDS: traZODone HCL 50 MG TAB PO SCH (20:17)
[2021-06-07] MEDS: haloperidoL 5 MG TAB PO PRN (20:17)
[2021-06-08] MEDS: LORazepam 1 MG TAB PO PRN ×3 (08:07→20:54)
[2021-06-08] MEDS: PANTOPRAZOLE 40 MG TABLET PO SCH (08:07)
[2021-06-08] MEDS: ACETAMINOPHEN TAB 325 MG TAB PO PRN ×2 (08:07→14:46)
[2021-06-08] MEDS: DULoxetine HCL 60 MG CAPSULE.DR PO SCH (08:08)
[2021-06-08] MEDS: lisinopriL 20 MG TAB PO SCH (08:08)
[2021-06-08] MEDS: NICOTINE 14MG/24HR PATCH TRANSDERM SCH (08:09)
--- NOTE | 2021-06-08 11:37 | P.PN ---
Progress Note - Text Progress Note Date: 06/08/21 Interval History: Patient was seen lying in his bed today and was directable and agreeable to sp jose with freelance copywriter. Patient was fairly directable during conversation. He continues to state that he feels unsure about where he is going to go when he leaves. He was mainly preoccupied with his discharge planning today. He states that he is doing mildly better in terms of his mood and anxiety. He states that he was able to sleep better last night. He claims that his appetite has been improving. He appears to have a more goal oriented thought process and was logical. We spoke about the VA benefits and other options for housing. He also asked questions about when his deputy prosecuting attorney will come to speak with him about treatment. He was fairly directable during conversation and appropriate. He appeared to be trying to exaggerate his symptoms to stay in the hospital and was manipulative. At this time patient denies any suicidal or homical ideations, intent or plan. Patient denies any auditory, visual hallucinations and denies any paranoia or delusions. Patient denies any side effects from the medications and has been compliant with meds. Mental Status Exam: General Appearance: Patient appears to have long diaz and hair, disheveled appearance, improving mildly, older than stated age is alert, attempts to be cooperative. Patient appears to have improving hygiene and grooming wearing hospital gown Behavior: Patient is not agitated and attempts to cooperate. Anxious, improving mildly. Speech: Patient's speech is more organized today. fluent, non-pressured Mood/Affect: Patient reports their mood is "getting there", affect is congruent Suicidality/Homicidality: Patient denies having any current homicidal ideation intent or plan. He denies any suicidal thoughts, no intent or plan. Perceptions: Patient denies any visual hallucinations and denies any auditory hallucinations Though content/process: Rambles at times, more organized and goal oriented today. not endorsing any delusions. Memory and concentration: AOX3, grossly intact for the purposes of this session. Judgment and insight: chronically poor, improving mildly IMPRESSIONS: Schizoaffective disorder, depressive type Cannabis use disorder non compliance with medication regimen homelessness Nicotine dependence Plan: -Patient continues to meet criteria for inpatient psychiatric admission for symptom stabilization and safety. Patient has not signed adult voluntary form and was placed in patient's chart. -Medications: Cymbalta 60 mg daily for mood/that he/pain, trazodone to 150 mg daily at bedtime for insomnia/mood. Continue BuSpar 15 mg twice a day when necessary for anxiety. -When necessary Ativan and Haldol for agitation/aggression. -CIWA protocol with when necessary Ativan for alcohol withdrawal. -NRT - nicotine patch -SW on board for discharge planning. Encouraged the patient to participate in milieu. Patient will meet with his deputy prosecuting attorney tomorrow for deferral. Patient will be encouraged to be connected with [facility] to have access to VA benefits including possible placement long-term once he is discharged. [facility]'ll [facility] as patient is currently homeless.
[2021-06-08] MEDS: traZODone HCL 50 MG TAB PO SCH (20:53)
[2021-06-09] MEDS: lisinopriL 20 MG TAB PO SCH (08:00)
[2021-06-09] MEDS: NICOTINE 14MG/24HR PATCH TRANSDERM SCH (08:00)
[2021-06-09] MEDS: DULoxetine HCL 60 MG CAPSULE.DR PO SCH (08:00)
[2021-06-09] MEDS: PANTOPRAZOLE 40 MG TABLET PO SCH (08:00)
[2021-06-09] MEDS: LORazepam 1 MG TAB PO PRN ×2 (08:01→16:41)
--- NOTE | 2021-06-09 10:27 | P.PN ---
Progress Note - Text Progress Note Date: 06/09/21 Interval History: Patient was seen during always this morning and was directable and agreeable to speak with commercial insurance underwriter. Patient was fairly directable during conversation. He continues to overexaggerate some of his symptoms. He continues to also focus on not knowing where he is going and is worried about long-term placement. He continues to be fairly dependent. He appears to have improvement in his affect and also his hygiene and grooming. He claims that he wants to stay in the hospital for "much longer" and is resistant to want to be discharged. He also continues to appear to be somewhat manipulative. He claims that his mood has been getting better however still has anxiety during the day. He was agreeable to take BuSpar today and have his Cymbalta increased. He states that he got about 4-5 hours of sleep last night and was agreeable out of his trazodone increased. He states that he has gone to some groups. He was somewhat future oriented today. At this time patient denies any suicidal or homical ideations, intent or plan. Patient denies any auditory, visual hallucinations and denies any paranoia or delusions. Patient denies any side effects from the medications and has been compliant with meds. Mental Status Exam: General Appearance: Patient appears to have long diaz and hair, improving appearance, older than stated age is alert, attempts to be cooperative. Patient appears to have improving hygiene and grooming wearing hospital gown Behavior: Patient is not agitated and attempts to cooperate. Anxious, improving mildly. Speech: Patient's speech is more organized today. fluent, non-pressured Mood/Affect: Patient reports their mood is "a bit better", affect is congruent Suicidality/Homicidality: Patient denies having any current homicidal ideation intent or plan. He denies any suicidal thoughts, no intent or plan. Perceptions: Patient denies any visual hallucinations and denies any auditory hallucinations Though content/process: Rambles at times, more organized and goal oriented today. not endorsing any delusions. Memory and concentration: AOX3, grossly intact for the purposes of this session. Judgment and insight: chronically poor, improving mildly IMPRESSIONS: Schizoaffective disorder, depressive type Cannabis use disorder non compliance with medication regimen homelessness Nicotine dependence Plan: -Patient continues to meet criteria for inpatient psychiatric admission for symptom stabilization and safety. Patient has not signed adult voluntary form and was placed in patient's chart. -Medications: increase Cymbalta 90 mg daily for mood/that he/pain, increase trazodone to 200 mg daily at bedtime for insomnia/mood. Change BuSpar to 10 mg three times a day for anxiety. -When necessary Ativan and Haldol for agitation/aggression. -NRT - nicotine patch -SW on board for discharge planning. Encouraged the patient to participate in milieu. Patient will meet with his assistant district attorney today for deferral. Patient will be encouraged to be connected with [facility] to have access to VA benefits including possible placement long-term once he is discharged. We'll be likely planning to discharge in 1-2 days.
[2021-06-09] MEDS: busPIRone HCl 10 MG TAB PO SCH ×2 (11:38→16:41)
[2021-06-09] MEDS: ACETAMINOPHEN TAB 325 MG TAB PO PRN (16:41)
[2021-06-10] MEDS: traZODone HCL 100 MG TAB PO SCH ×2 (01:54→22:00)
[2021-06-10] MEDS: busPIRone HCl 10 MG TAB PO SCH ×4 (01:54→22:00)
[2021-06-10] MEDS: NICOTINE 14MG/24HR PATCH TRANSDERM SCH (08:23)
[2021-06-10] MEDS: lisinopriL 20 MG TAB PO SCH (08:23)
[2021-06-10] MEDS: DULoxetine HCL 30 MG CAPSULE.DR PO SCH (08:24)
[2021-06-10] MEDS: PANTOPRAZOLE 40 MG TABLET PO SCH (08:24)
[2021-06-10] MEDS: LORazepam 1 MG TAB PO PRN ×2 (08:25→15:00)
--- NOTE | 2021-06-10 13:06 | P.PN ---
Progress Note - Text Progress Note Date: 06/10/21 Interval History: Patient was seen lying in his bed this morning and was agreeable to speak to wilfredo cowan. Patient continues to overexaggerate some of his symptoms and appears to continue to be manipulative. He claims that he does not agree with treatment however continues to take his medications and states medications are helping. He claims that he did not differ with his personal injury attorney and wants to go to court. Patient continues to be preoccupied with prolonging his hospital stay and continues to refuse to be discharged. He continues to refuse to participate in groups and claims that he has chronically had passive suicidal thoughts however has no intent or plan at this time. When told about the court hearing date and also the potential for discharge tomorrow patient became more upset with health science writer and defensive and demanded to stay in the hospital. He states that "you need to place me somewhere". He claims to have slept fairly last night however did not take the trazodone. Patient was asking questions about where he will go and was asking where the [facility]dc is in [facility] that he'll be going to. He also asked about [facility] follow-up and appeared to be future oriented. At this time patient denies any suicidal or homical ideations, intent or plan. Patient denies any auditory, visual hallucinations and denies any paranoia or delusions. Patient denies any side effects from the medications and has been compliant with meds. Patient also attempted to bargain with health science writer asking for "just 1 more day" to stay in the hospital longer as long as he could. Mental Status Exam: General Appearance: Patient appears to have long diaz and hair, improving appearance, older than stated age is alert, attempts to be cooperative. Patient appears to have improving hygiene and grooming wearing hospital gown Behavior: Patient is not agitated and attempts to cooperate. Anxious, improving mildly. Appears to be exaggerating some of his symptoms. Manipulative. Speech: Patient's speech is more organized today. fluent, non-pressured Mood/Affect: Patient reports their mood is "the same", affect is congruent Suicidality/Homicidality: Patient denies having any current homicidal ideation intent or plan. He denies any active current suicidal thoughts, no intent or plan. Perceptions: Patient denies any visual hallucinations and denies any auditory hallucinations Though content/process: Rambles at times, organized. Exaggerating his symptoms and manipulative. Persistent on not being discharged. Memory and concentration: AOX3, grossly intact for the purposes of this session. Judgment and insight: chronically poor, improving mildly IMPRESSIONS: Schizoaffective disorder, depressive type Cannabis use disorder non compliance with medication regimen homelessness Nicotine dependence Plan: -Patient continues to meet criteria for inpatient psychiatric admission for symptom stabilization and safety. Patient has not signed adult voluntary form and was placed in patient's chart. -Medications: Cymbalta 90 mg daily for mood/that he/pain, trazodone 200 mg daily at bedtime for insomnia/mood. BuSpar to 10 mg three times a day for anxiety. -When necessary Ativan and Haldol for agitation/aggression. -NRT - nicotine patch -SW on board for discharge planning. Encouraged the patient to participate in milieu. Patient met with his personal injury attorney and did not differ. Patient's court hearing is next Monday however patient does not have to be in the hospital for this. Patient will be encouraged to be connected with [facility] to have access to VA benefits including possible placement long-term once he is discharged And will be given this information and resources. We'll be likely planning to discharge tomorrow to fdc in [place] with [facility] follow-up.
[2021-06-10] MEDS: ACETAMINOPHEN TAB 325 MG TAB PO PRN (13:39)
[2021-06-10] MEDS: haloperidoL 5 MG TAB PO PRN (13:39)
[2021-06-11] MEDS: busPIRone HCl 10 MG TAB PO SCH ×2 (08:08→16:21)
[2021-06-11 08:09] VITALS: BP 133/85; PULSE 85; RESP 20; TEMP 97.7
[2021-06-11] MEDS: LORazepam 1 MG TAB PO PRN ×2 (08:09→16:22)
[2021-06-11] MEDS: NICOTINE 14MG/24HR PATCH TRANSDERM SCH (08:10)
[2021-06-11] MEDS: DULoxetine HCL 30 MG CAPSULE.DR PO SCH (08:12)
[2021-06-11] MEDS: lisinopriL 20 MG TAB PO SCH (08:12)
[2021-06-11] MEDS: PANTOPRAZOLE 40 MG TABLET PO SCH (08:12)
--- NOTE | 2021-06-11 12:51 | P.DS ---
Providers Date of admission: 06/04/21 04:10 Expected date of discharge: 06/11/21 Attending physician: Arvind Mcdonnell MD Consults: 06/04/21 04:22 Consult Physician Routine Consulting Provider: Rhoda Alaniz Consult Reason/Comments: For H & P for Medical follow up Do you want consulting provider notified?: Yes Primary care physician: Stated None - Discharge Diagnosis(es) (1) Schizoaffective disorder, depressive type Current Visit: Yes Status: Acute Priority: High (2) Cannabis use disorder, mild, abuse Current Visit: Yes Status: Acute Priority: Medium (3) Non compliance w medication regimen Current Visit: Yes Status: Acute Priority: Medium (4) Homelessness Current Visit: Yes Status: Acute Priority: High (5) Nicotine dependence Current Visit: Yes Status: Acute Priority: Low Hospital Course: Admission HPI: Admission note was completed by ad copy writer "This patient is a 65-year-old male who is currently homeless and has 4 kids and is unemployed. The patient presented to the hospital yesterday with complaints of depression and suicidal thoughts. Patient has a history of schizoaffective disorder and has been psychiatrically and medically hospitalized several times in the past. He has a significant history of noncompliance with medications and very poor insight. Patient was admitted involuntarily to the mental health unit and agreeable to speak to ad copy writer today. He was using a walker due to a chronic leg wound. He claims that he was recently released from [facility] 2 days ago and came to the hospital for help. He states that he has not been taking psychiatric medications and has been feeling "very aggressive suicidal thoughts" and states that he is still having suicidal thoughts at this time however has no intent or plan in the unit. He claims that he's been feeling depressed anxious and was significantly talking about his chronic pain in his hip and also his leg. He was asking ad copy writer about long-term placement as he claims that he cannot take care of himself. He rambled at times and was illogical. He also complained of racing thoughts which are mainly negative in nature. He states that he is having poor sleep and poor appetite. He was agreeable to take medications today. Patient denies any auditory, visual hallucinations. Patients admits to using cigarettes daily, beer as noted above and smoking marijuana daily. He claims that he drinks about 1 beer a day and has mild withdrawal symptoms at this time including anxiety." Hospital course: Upon admission to the unit patient was admitted involuntarily on a petition and certificate and a second certificate was completed and faxed with the courts. Patient initially did not defer with supervisor shop however requested to speak with supervisor shop again to do deferral today on day of discharge which will occur today at 3:30 PM. If patient does defer and has been taking his medications then he will be clear for discharge today. Patient got along well with other patients on the unit and followed unit protocol. Patient was compliant with the medications and denied any side effects throughout hospital course. Patient was started on Cymbalta and titrated up to dose of 90 mg daily for mood/anxiety. Also started patient on trazodone 200 mg daily at bedtime for insomnia/mood. Patient was also started on BuSpar 10 mg 3 times a day for anxiety. Patient has been taking his medications as prescribed. Patient spoke of his stressors during individual therapy however did not attend many groups and appeared to be disinterested in the. Patient was also seen by medical team for history and physical exam. Throughout the course of the hospitalization patient gradually improved with regards to mood, anxiety, sleep and returned back to their baseline level of functioning. On the day of discharge patient denied any current suicidal or homicidal ideations intent or plan denied any auditory or visual hallucinations . Patient was future oriented stating that he wanted to eventually move out of state and go live in [place]. Patient endorsed wanting to live for housing and also to move out of state. The patient denied any access to guns or weapons. Patient denied any paranoia and did not endorse any delusions. Patient does not have a significant history of substance abuse [facility] was counseled on abstaining from all substances including alcohol and marijuana. Patient was also counseled on the medications and need for regular compliance and was encouraged to follow-up with their outpatient appointment for mental health and also for primary care. Patient will meet with his supervisor shop today and plans on signing the deferral. Patient claims that he wants to be picked up by his friend aneudy Phillips social worker masters to make contact with him to confirm the plan. If this plan does not go through then the other option will be to discharge patient to senior living in [place] today with [facility] follow-up. Patient was told several times that he does have access to VA benefits however needs to be established with the VA once again to help him further with placement and further mental health treatment, patient verbally understood and agreed. Mental status exam: General Appearance: Patient appears to have long hair, diaz, stated age is alert, directable, and manipulative at times. Patient is in no acute distress and has improved hygiene and grooming Behavior: Patient is calmly seated without any agitated behavior. Manipulative at times. Speech: Patient's speech is fluent and nonpressured. Mood/Affect: Patient reports their mood is "fine", affect is congruent Suicidality/Homicidality: Patient denies having any suicidal or homicidal ideation intent or plan. Perceptions: Patient denies any auditory or visual hallucinations. Though content/process: There is no evidence of any delusional thought content and thought process is linear and goal-directed. Future oriented. Memory and concentration: AOX3, grossly intact for the purposes of this session. Can spell "WORLD" backwards correctly. Judgment and insight: chronically poor, however has improved with guarded pr ognosis Impression: schizoaffective disorder, depressive cannabis use disorder non compliance with med regimen homelessness Nicotine dependence Plan: -Continue with discharge today as patient has improved and stabilized psychiatrically and is not currently an imminent threat to himself and/or others. Patient will remain at chronically elevated risk for harm to self and/or others due to his impulsivity and chronic mental health condition along with his chronically poor insight and judgment. -Continue medications: Cymbalta 90 mg daily for mood/anxiety/pain, trazodone 200 mg daily at bedtime for insomnia/mood, BuSpar 10 mg 3 times a day for anxiety. -Patient was counseled on the need for medication compliance and appropriate follow-up at mental health and also primary care for medical issues. Patient verbalized understanding and agreed. -Social work to try and reach out the patient's contact/friend Alan over the phone to confirm a discharge plan and pickup. If this does not occur then the default path for discharge today will be to senior living in [place] with [facility] follow up. Patient once again was encouraged to seek connection with [place] for further benefits and assistance with housing and can make this contact through [facility]. Social work also to arrange for patients follow up appointments with [facility] for psychiatric care along with follow up with primary care provider. -Patient counseled on abstaining from recreational drugs and marijuana and alcohol. Was informed/educated on the adverse effects on their physical and mental health. Patient verbally agreed and understood. -Patient was instructed to return to the hospital or seek immediate medical care if their psychiatric or medical symptoms do worsen or reoccur. Allergies Allergy/AdvReac Type Severity Reaction Status Date / Time amoxicillin trihydrate Allergy Mild Rash/Hives Verified 06/04/21 04:20 [From Augmentin] ciprofloxacin [From Cipro] Allergy Mild Rash/Hives Verified 06/04/21 04:20 ciprofloxacin HCl Allergy Mild Rash/Hives Verified 06/04/21 04:20 [From Cipro] potassium clavulanate Allergy Mild Rash/Hives Verified 06/04/21 04:20 [From Augmentin] Sulfa (Sulfonamide Allergy Mild Rash/Hives Verified 06/04/21 04:20 Antibiotics) cefepime Allergy Rash/Hives Verified 06/04/21 04:20 hydrocodone [From Vicodin] Allergy Rash/Hives Verified 06/04/21 04:20 ibuprofen [From Motrin] AdvReac Mild Nausea & Verified 06/04/21 04:20 Vomiting & Diarrhea Laboratory Results WBC 7.5 k/uL (3.8-10.6) 06/04/21 01:19 RBC 4.75 m/uL (4.30-5.90) 06/04/21 01:19 Hgb 16.0 gm/dL (13.0-17.5) 06/04/21 01:19 Hct 46.5 % (39.0-53.0) 06/04/21 01:19 MCV 98.0 fL (80.0-100.0) 06/04/21 01:19 MCH 33.7 pg (25.0-35.0) 06/04/21 01:19 MCHC 34.3 g/dL (31.0-37.0) 06/04/21 01:19 RDW 13.0 % (11.5-15.5) 06/04/21 01:19 Plt Count 254 k/uL (150-450) 06/04/21 01:19 MPV 7.7 06/04/21 01:19 Neutrophils % 51 % 06/04/21 01:19 Lymphocytes % 35 % 06/04/21 01:19 Monocytes % 7 % 06/04/21 01:19 Eosinophils % 4 % 06/04/21 01:19 Basophils % 1 % 06/04/21 01:19 Neutrophils # 3.8 k/uL (1.3-7.7) 06/04/21 01:19 Lymphocytes # 2.6 k/uL (1.0-4.8) 06/04/21 01:19 Monocytes # 0.5 k/uL (0-1.0) 06/04/21 01:19 Eosinophils # 0.3 k/uL (0-0.7) 06/04/21 01:19 Basophils # 0.1 k/uL (0-0.2) 06/04/21 01:19 Sodium 139 mmol/L (137-145) 06/04/21 01:19 Potassium 4.5 mmol/L (3.5-5.1) 06/04/21 01:19 Chloride 105 mmol/L (98-107) 06/04/21 01:19 Carbon Dioxide 20 mmol/L (22-30) L 06/04/21 01:19 Anion Gap 14 mmol/L 06/04/21 01:19 BUN 7 mg/dL (9-20) L 06/04/21 01:19 Creatinine 0.57 mg/dL (0.66-1.25) L 06/04/21 01:19 Est GFR (CKD-EPI)AfAm >90 (>60 ml/min/1.73 sqM) 06/04/21 01:19 Est GFR (CKD-EPI)NonAf >90 (>60 ml/min/1.73 sqM) 06/04/21 01:19 Glucose 82 mg/dL (74-99) 06/04/21 01:[address] Glu mg/dL 103 06/04/21 04:32 Hemoglobin A1c 5.2 % (0.0-6.0) 06/04/21 04:32 Calcium 9.7 mg/dL (8.4-10.2) 06/04/21 01:19 Total Bilirubin 0.8 mg/dL (0.2-1.3) 06/04/21 01:19 AST 33 U/L (17-59) 06/04/21 01:19 ALT 24 U/L (4-49) 06/04/21 01:19 Alkaline Phosphatase 46 U/L (38-126) 06/04/21 01:19 Total Protein 7.6 g/dL (6.3-8.2) 06/04/21 01:19 Albumin 4.5 g/dL (3.5-5.0) 06/04/21 01:19 TSH 1.460 mIU/L (0.465-4.680) 06/04/21 04:32 Urine Color Light Yellow 06/04/21 00:16 Urine Appearance Clear (Clear) 06/04/21 00:16 Urine pH 5.5 (5.0-8.0) 06/04/21 00:[address] 1.003 (1.001-1.035) 06/04/21 00:16 Urine Protein Trace (Negative) H 06/04/21 00:16 Urine Glucose (UA) Negative (Negative) 06/04/21 00:16 Urine Ketones Negative (Negative) 06/04/21 00:16 Urine Blood Negative (Negative) 06/04/21 00:16 Urine Nitrite Negative (Negative) 06/04/21 00:16 Urine Bilirubin Negative (Negative) 06/04/21 00:16 Urine Urobilinogen <2.0 mg/dL (<2.0) 06/04/21 00:16 Ur Leukocyte Esterase Negative (Negative) 06/04/21 00:16 Salicylates <1.0 mg/dL 06/04/21 01:19 Urine Opiates Screen Not Detected (NotDetected) 06/04/21 00:16 Ur Oxycodone Screen Not Detected (NotDetected) 06/04/21 00:16 Urine Methadone Screen Not Detected (NotDetected) 06/04/21 00:16 Ur Propoxyphene Screen Not Detected (NotDetected) 06/04/21 00:16 Acetaminophen <10.0 ug/mL 06/04/21 01:19 Ur Barbiturates Screen Not Detected (NotDetected) 06/04/21 00:16 U Tricyclic Antidepress Not Detected (NotDetected) 06/04/21 00:16 Ur Phencyclidine Scrn Not Detected (NotDetected) 06/04/21 00:16 Ur Amphetamines Screen Not Detected (NotDetected) 06/04/21 00:16 U Methamphetamines Scrn Not Detected (NotDetected) 06/04/21 00:16 U Benzodiazepines Scrn Not Detected (NotDetected) 06/04/21 00:16 Urine Cocaine Screen Not Detected (NotDetected) 06/04/21 00:16 U Marijuana (THC) Screen Not Detected (NotDetected) 06/04/21 00:16 Serum Alcohol 126 mg/dL 06/04/21 01:19 Coronavirus (PCR) Not Detected (Not Detectd) 06/04/21 02:35 Vital Signs Temp 97.7 F 06/11/21 08:08 Pulse 85 06/11/21 08:08 Resp 20 06/11/21 08:08 BP 133/85 06/11/21 08:08 Pulse Ox 94 L 06/05/21 07:06 Patient Condition at Discharge: Stable Plan - Discharge Summary Discharge Rx Participant: No New Discharge Prescriptions: New busPIRone HCl [Buspar] 15 mg PO BID PRN 30 Days tab PRN Reason: Anxiety Pantoprazole [Protonix] 40 mg PO AC-BRKFST 30 Days tab Acetaminophen Tab [Tylenol] 650 mg PO Q8HR PRN 14 Days tab PRN Reason: Pain/Discomfort DULoxetine HCL [Cymbalta] 90 mg PO DAILY 30 Days traZODone HCL [Desyrel] 200 mg PO HS 30 Days tab Nicotine 14Mg/24Hr Patch [Habitrol] 1 patch TRANSDERM DAILY 14 Days patch Continue lisinopriL [Zestril] 20 mg PO DAILY 30 Days tab Discontinued Pantoprazole [Protonix] 40 mg PO AC-BRKFST tab Discharge Medication List Acetaminophen Tab [Tylenol] 650 mg PO Q8HR PRN 14 Days tab 06/11/21 [Rx] DULoxetine HCL [Cymbalta] 90 mg PO DAILY 30 Days 06/11/21 [Rx] Nicotine 14Mg/24Hr Patch [Habitrol] 1 patch TRANSDERM DAILY 14 Days patch 06/11/21 [Rx] Pantoprazole [Protonix] 40 mg PO AC-BRKFST 30 Days tab 06/11/21 [Rx] busPIRone HCl [Buspar] 15 mg PO BID PRN 30 Days tab 06/11/21 [Rx] lisinopriL [Zestril] 20 mg PO DAILY 30 Days tab 06/11/21 [Rx] traZODone HCL [Desyrel] 200 mg PO HS 30 Days tab 06/11/21 [Rx] Follow up Appointment(s)/Referral(s): [facility] [Outside] - 06/16/21 1:00 pm (with Barbara) None,Stated [Primary Care Provider] - 1-2 days Activity/Diet/Wound Care/Special Instructions: Activity and diet as tolerated. Avoid the use of street drugs and alcohol. Take all medications as prescribed. When you are in need of refills on your medications please contact your medical provider and/or outpatient psychiatrist to have this done. Please go to scheduled outpatient appointment for aftercare treatment. If symptoms return or become worse, call the crisis line at and/or go to the nearest emergency room for evaluation Discharge Disposition: OTHER INSTITUTION NOT DEFINED
== END 2021-06-11 16:40 | disposition home or self-care (01) | DRG 885 ==
LOC: EC 19:29 → 3MHU 06-04 04:10
PROVIDERS: ADMIT Psychiatry & Neurology Psychiatry; ATTEND Psychiatry & Neurology Psychiatry
DX: F25.1 Schizoaffective disorder, depressive type (principal); R45.851 Suicidal ideations; F43.23 Adjustment disorder with mixed anxiety and depressed mood; J44.9 Chronic obstructive pulmonary disease, unspecified; I10 Essential (primary) hypertension; I25.2 Old myocardial infarction; M19.90 Unspecified osteoarthritis, unspecified site; F17.200 Nicotine dependence, unspecified, uncomplicated; Z88.1 Allergy status to other antibiotic agents; Z88.2 Allergy status to sulfonamides; Z88.5 Allergy status to narcotic agent; Z88.6 Allergy status to analgesic agent; F17.210 Nicotine dependence, cigarettes, uncomplicated; F43.10 Post-traumatic stress disorder, unspecified; G47.00 Insomnia, unspecified; G89.29 Other chronic pain; Z59.00 Homelessness unspecified; Z79.899 Other long term (current) drug therapy; Z82.49 Family history of ischemic heart disease and other diseases of the circulatory system; Z91.14 Patient's other noncompliance with medication regimen; Z20.822 Contact with and (suspected) exposure to COVID-19; F12.90 Cannabis use, unspecified, uncomplicated
CPT/HCPCS: 36415; 80053; 80143; 80179; 80306; 80320; 81003; 82075; 83036; 84443; 85025; 87635; 99285

== ENCOUNTER 2022-01-19 11:20 | Inpatient (IN) | payer MEDICARE, MEDICAID ==
[2022-01-19] MEDS ORDERED: cloNIDine HCL 0.1 MG TAB PO STA (11:34)
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
[2022-01-19 15:11] LABS: Amphetamine Screen,Urine Not Detected (NotDetected); Barbiturate Screen,Urine Not Detected (NotDetected); Benzodiazepines Screen,Urine Not Detected (NotDetected); Cocaine Screen,Urine Not Detected (NotDetected); Methadone Screen, Urine Not Detected (NotDetected); Opiate Screen,Urine Not Detected (NotDetected); Oxycodone Screen, Urine Not Detected (NotDetected); Phencyclidine Screen,Urine Not Detected (NotDetected); Tricyclic Antidepressant,Urine Not Detected (NotDetected); Urn Cannabinoid Scrn Not Detected (NotDetected)
[2022-01-19] MEDS ORDERED: hydrOXYzine HCL 50 MG/ML 1 ML VIAL IM PRN (18:11)
[2022-01-19] MEDS ORDERED: MAGNESIUM HYDROXIDE 2,400 MG/10 ML CUP PO PRN (18:11)
[2022-01-19] MEDS ORDERED: OLANZapine 10 MG VIAL IM PRN (18:11)
[2022-01-19] MEDS ORDERED: OLANZapine 5 MG TAB PO PRN (18:11)
[2022-01-19] MEDS: hydrOXYzine pamoate 25 MG CAP PO PRN (20:18)
[2022-01-19] MEDS: NICOTINE 14MG/24HR PATCH TRANSDERM SCH (20:32)
--- NOTE | 2022-01-20 04:10 | P.PN ---
Progress Note - Text Progress Note Date: 01/20/22 Attempted to see the patient in the mental health unit at 2200 on 01/19. The patient refused to be seen or be evaluated.
[2022-01-20] MEDS: NICOTINE 14MG/24HR PATCH TRANSDERM SCH (11:19)
[2022-01-20] MEDS: ACETAMINOPHEN TAB 325 MG TAB PO PRN ×2 (11:20→18:50)
[2022-01-20] MEDS: DULoxetine HCL 30 MG CAPSULE.DR PO SCH (12:52)
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
[2022-01-20] MEDS: PALIPERIDONE 3 MG TAB.ER.24 PO SCH (20:13)
[2022-01-20] MEDS ORDERED: traZODone HCL 50 MG TAB PO SCH (21:00)
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
[2022-01-21] MEDS: DULoxetine HCL 30 MG CAPSULE.DR PO SCH (08:40)
[2022-01-21] MEDS: hydroCHLOROthiazide 25 MG TAB PO SCH (08:40)
[2022-01-21] MEDS: NICOTINE 14MG/24HR PATCH TRANSDERM SCH (08:41)
[2022-01-21] MEDS: ACETAMINOPHEN TAB 325 MG TAB PO PRN (08:41)
--- NOTE | 2022-01-21 10:17 | P.PN ---
Progress Note - Text Progress Note Date: 01/21/22 Interval History: Patient was seen laying in his bed today and was directable and agreeable to s peak with sql report writer. Patient claims that he did not sleep much at all last night. He complains of still having ongoing depression and anxiety. He states that he still having some suicidal thoughts at times during the day. He claims that she believes that the Cymbalta has been "upsetting my stomach". Claims that he had trouble eating this morning. We spoke about the side effects of SSRIs and SSR Is. Patient states that he has not been to many groups at this time. Continues to appear to be disheveled in appearance. At this time patient denies any suicidal or homical ideations, intent or plan. Patient denies any auditory, visual hallucinations and denies any paranoia or delusions. Patient denies any side effects from the medications and has been compliant with meds. Mental Status Exam: General Appearance: Patient appears to have long diaz and hair, disheveled appearance, older than stated age is lethargic, attempts to be cooperative. Patient appears to have poor hygiene and grooming wearing hospital gown with fair eye contact. Behavior: Patient is not agitated and attempts to cooperate. Anxious. Appears to be depressed. Speech: Patient's speech is more organized today. fluent, non pressured Mood/Affect: Patient reports their mood is "depressed", affect is congruent and constricted Suicidality/Homicidality: Patient denies having any current homicidal ideation intent or plan. He admits to ongoing suicidal thoughts, no intent or plan. Perceptions: Patient denies any visual hallucinations and denies any auditory hallucinations Though content/process: Rambles at times, fairly logical. not endorsing any delusions. Focused on his pain and medications. Memory and concentration: AOX3, grossly intact for the purposes of this session Judgment and insight: chronically poor, improving mildly IMPRESSIONS: Schizoaffective disorder, depressive type Cannabis use disorder non compliance with medication regimen homelessness Nicotine dependence Plan: -Patient continues to meet criteria for inpatient psychiatric admission for symptom stabilization and safety. Patient has not signed medication consent and was placed in patient's chart. -Medications: Continue with Cymbalta 30 mg daily for mood/anxiety/pain, increased to 30 mg twice a day over the weekend. Continue paliperidone by mouth 3 mg daily at bedtime for psychosis. Increase trazodone to 100 mg daily at bed time for insomnia/mood. -When necessary Zyprexa for agitation/aggression. -NRT - nicotine patch -SW on board for discharge planning. Encouraged the patient to participate in milieu. likely discharge early next week
[2022-01-21] MEDS: hydrOXYzine pamoate 25 MG CAP PO PRN (20:20)
[2022-01-21] MEDS: PALIPERIDONE 3 MG TAB.ER.24 PO SCH (20:20)
[2022-01-21] MEDS ORDERED: traZODone HCL 100 MG TAB PO SCH (21:00)
[2022-01-22] MEDS: NICOTINE 14MG/24HR PATCH TRANSDERM SCH (08:42)
[2022-01-22] MEDS: hydroCHLOROthiazide 25 MG TAB PO SCH (08:43)
[2022-01-22] MEDS ORDERED: DULoxetine HCL 30 MG CAPSULE.DR PO ONE (09:00)
[2022-01-22] MEDS: ACETAMINOPHEN TAB 325 MG TAB PO PRN (11:03)
[2022-01-22] MEDS: MAG HYDROX/AL HYDROX/SIMETH 30 ML CUP PO PRN ×2 (11:04→15:44)
--- NOTE | 2022-01-22 12:42 | P.PN ---
Progress Note - Text Progress Note Date: 01/22/22 Interval History: Patient was seen laying in his bed today and was directable and agreeable to s peak with writer technical publications. Patient claims that he did not sleep much at all last night and would like increase in trazodone. He complains of still having ongoing depression and anxiety. He discusses his past and voices many negative cognitions towards himself. He states that he still having some suicidal ideation with plan to jump into the river. He denies concerns with medications or side effects. Patient states that he has not been to many groups at this time. Continues to appear to be disheveled in appearance. At this time patient denies homicidal ideations, intent or plan. Patient denies any auditory, visual hallucinations and denies any paranoia or delusions. Mental Status Exam: General Appearance: Patient appears to have long diaz and hair, disheveled appearance, older than stated age is lethargic, attempts to be cooperative. Patient appears to have poor hygiene and grooming wearing hospital gown with fair eye contact. Behavior: Patient is not agitated and attempts to cooperate. Anxious. Appears to be depressed. Speech: Patient's speech is more organized today. fluent, non pressured Mood/Affect: Patient reports their mood is "depressed", affect is congruent and constricted Suicidality/Homicidality: Patient denies having any current homicidal ideation intent or plan. He admits to ongoing suicidal thoughts with plan. Perceptions: Patient denies any visual hallucinations and denies any auditory hallucinations Though content/process: Rambles at times, fairly logical. not endorsing any delusions. Focused on his pain and medications. Memory and concentration: AOX3, grossly intact for the purposes of this session Judgment and insight: chronically poor, improving mildly IMPRESSIONS: Schizoaffective disorder, depressive type Cannabis use disorder non compliance with medication regimen homelessness Nicotine dependence Plan: -Patient continues to meet criteria for inpatient psychiatric admission for symptom stabilization and safety. Patient has not signed medication consent and was placed in patient's chart. -Medications: Increase Cymbalta to 30 mg twice a day. Continue paliperidone by mouth 3 mg daily at bedtime for psychosis. Increase trazodone to 150 mg daily at bedtime for insomnia/mood. -When necessary Zyprexa for agitation/aggression. -NRT - nicotine patch -SW on board for discharge planning. Encouraged the patient to participate in milieu. likely discharge early next week
[2022-01-22] MEDS: traZODone HCL 100 MG TAB PO SCH (20:36)
[2022-01-22] MEDS: PALIPERIDONE 3 MG TAB.ER.24 PO SCH (20:37)
[2022-01-23] MEDS: hydroCHLOROthiazide 25 MG TAB PO SCH (08:41)
[2022-01-23] MEDS: DULoxetine HCL 30 MG CAPSULE.DR PO SCH ×2 (08:41→20:07)
[2022-01-23] MEDS: NICOTINE 14MG/24HR PATCH TRANSDERM SCH (08:41)
[2022-01-23] MEDS: MAG HYDROX/AL HYDROX/SIMETH 30 ML CUP PO PRN (11:25)
--- NOTE | 2022-01-23 12:11 | P.PN ---
Progress Note - Text Progress Note Date: 01/23/22 Interval History: Patient was seen laying in his bed today and was directable and agreeable to s peak with business writer. Patient continues to endorse depression with suicidal ideation without plan today. He has not been participating in groups and has been laying in his bed. Behavioral activation was encouraged. Patient is fixated on his physical health conditions. He reports that sleep has improved with trazodone and has been eating well. He was able to state that he finds that his honesty is the biggest positive thing about him. He denies concerns with medications or side effects. Continues to appear to be disheveled in appearance. At this time patient denies homicidal ideations, intent or plan. Patient denies any auditory, visual hallucinations and denies any paranoia or delusions. Mental Status Exam: General Appearance: Patient appears to have long diaz and hair, disheveled ap pearance, older than stated age is lethargic, attempts to be cooperative. Patient appears to have poor hygiene and grooming wearing hospital gown with fair eye contact. Behavior: Patient is not agitated and attempts to cooperate. Speech: Patient's speech is more organized today. fluent, non pressured Mood/Affect: Patient reports their mood is "depressed", affect is congruent and constricted Suicidality/Homicidality: Patient denies having any current homicidal ideation intent or plan. He admits to ongoing suicidal thoughts Perceptions: Patient denies any visual hallucinations and denies any auditory hallucinations Though content/process: Rambles at times, fairly logical. not endorsing any delusions. Memory and concentration: AOX3, grossly intact for the purposes of this session Judgment and insight: chronically poor, improving mildly IMPRESSIONS: Schizoaffective disorder, depressive type Cannabis use disorder non compliance with medication regimen homelessness Nicotine dependence Plan: -Patient continues to meet criteria for inpatient psychiatric admission for symptom stabilization and safety. Patient has not signed medication consent and was placed in patient's chart. -Medications: Continue Cymbalta 30 mg twice a day. Continue paliperidone by mouth 3 mg daily at bedtime for psychosis. Continue trazodone 150 mg daily at bedtime for insomnia/mood. -When necessary Zyprexa for agitation/aggression. -NRT - nicotine patch -SW on board for discharge planning. Encouraged the patient to participate in milieu. likely discharge early next week
[2022-01-23] MEDS: ACETAMINOPHEN TAB 325 MG TAB PO PRN ×2 (13:31→19:56)
[2022-01-23] MEDS: traZODone HCL 100 MG TAB PO SCH (20:06)
[2022-01-23] MEDS: PALIPERIDONE 3 MG TAB.ER.24 PO SCH (20:07)
[2022-01-24] MEDS: hydroCHLOROthiazide 25 MG TAB PO SCH (08:32)
[2022-01-24] MEDS: DULoxetine HCL 30 MG CAPSULE.DR PO SCH ×3 (08:32→20:07)
[2022-01-24] MEDS: NICOTINE 14MG/24HR PATCH TRANSDERM SCH (08:53)
--- NOTE | 2022-01-24 10:37 | P.PN ---
Progress Note - Text Progress Note Date: 01/24/22 Interval History: Patient was seen laying in his bed today and was directable and agreeable to s peak with freelance copywriter. Patient continues to state that he feels depressed and claims that he is worried about discharge. He stated that he has been in and out of the hospital for approximately 2 years now. He claims that he has nowhere to go and we spoke about homeless shelters. He also states that he ran out of money. He appears to be somewhat manipulative and exaggerating his symptoms. He claims that he has been going to some groups and up for meals. He claims that he refused the paliperidone last night because his "stomach felt off". Claims that she had trouble sleeping last night, fair appetite at this time. We spoke more about discharge planning and patient continues to be unsure. Not endorsing any delusions or paranoia. Continues to appear to be disheveled in appearance. At this time patient denies any homical ideations, intent or plan. He continues to state that he has suicidal thoughts, these appeared to be more chronic. Patient denies any auditory, visual hallucinations and denies any paranoia or delusions. Patient denies any side effects from the medications and has been compliant with meds. Mental Status Exam: General Appearance: Patient appears to have long diaz and hair, disheveled appearance, older than stated age is alert, attempts to be cooperative. Patient appears to have improving hygiene and grooming wearing hospital gown with fair eye contact. Behavior: Patient is not agitated and attempts to cooperate. More manipulative today. Speech: Patient's speech is more organized today. fluent, non pressured Mood/Affect: Patient reports their mood is "depressed", affect is congruent and constricted Suicidality/Homicidality: Patient denies having any current homicidal ideation intent or plan. He admits to ongoing suicidal thoughts, no intent or plan. Perceptions: Patient denies any visual hallucinations and denies any auditory hallucinations Though content/process: Rambles at times, fairly logical. not endorsing any delusions. Focused on discharge planning. Exaggerating his symptoms. Memory and concentration: AOX3, grossly intact for the purposes of this session Judgment and insight: chronically poor, improving mildly IMPRESSIONS: Schizoaffective disorder, depressive type Cannabis use disorder non compliance with medication regimen homelessness Nicotine dependence Plan: -Patient continues to meet criteria for inpatient psychiatric admission for symptom stabilization and safety. Patient has not signed medication consent and was placed in patient's chart. -Medications: Increase Cymbalta 90 mg daily for mood/anxiety/pain. Continue paliperidone by mouth 3 mg daily at bedtime for psychosis. Increase trazodone to 200 mg daily at bedtime for insomnia/mood. Added melatonin 6 mg daily at bedtime for sleep. -When necessary Zyprexa for agitation/aggression. -NRT - nicotine patch -SW on board for discharge planning. Encouraged the patient to participate in milieu. likely discharge in 1-2 days. Patient will likely be referred to homeless senior living.
[2022-01-24] MEDS: PALIPERIDONE 3 MG TAB.ER.24 PO SCH (20:06)
[2022-01-24] MEDS ORDERED: traZODone HCL 100 MG TAB PO SCH (21:00)
[2022-01-24] MEDS ORDERED: MELATONIN 3 MG TABLET PO SCH (21:00)
[2022-01-25 06:44] VITALS: RESP 18; TEMP 97.2
[2022-01-25] MEDS: NICOTINE 14MG/24HR PATCH TRANSDERM SCH (08:07)
[2022-01-25] MEDS: hydroCHLOROthiazide 25 MG TAB PO SCH (08:08)
[2022-01-25 08:09] VITALS: BP 123/81; PULSE 101
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
== END 2022-01-25 13:20 | disposition home or self-care (01) | DRG 885 ==
LOC: EC 11:20 → 3MHU 18:04
PROVIDERS: ADMIT Psychiatry & Neurology Psychiatry; ATTEND Psychiatry & Neurology Psychiatry
DX: F33.1 Major depressive disorder, recurrent, moderate (principal); M86.9 Osteomyelitis, unspecified; R45.851 Suicidal ideations; F25.1 Schizoaffective disorder, depressive type; F12.90 Cannabis use, unspecified, uncomplicated; F17.210 Nicotine dependence, cigarettes, uncomplicated; F43.10 Post-traumatic stress disorder, unspecified; G47.00 Insomnia, unspecified; I10 Essential (primary) hypertension; I25.2 Old myocardial infarction; J44.9 Chronic obstructive pulmonary disease, unspecified; Z59.01 Sheltered homelessness; Z79.899 Other long term (current) drug therapy; Z91.14 Patient's other noncompliance with medication regimen
CPT/HCPCS: 80306; 87635; 99285

== ENCOUNTER 2022-01-26 10:10 | Inpatient (IN) | payer MEDICARE, MEDICAID ==
[2022-01-26] MEDS ORDERED: ACETAMINOPHEN TAB 500 MG TAB PO STA (12:36)
--- NOTE | 2022-01-26 15:03 | XR ---
EXAMINATION TYPE: XR lumbar spine 2 or 3V DATE OF EXAM: 01/26/2022 CLINICAL HISTORY: pain TECHNIQUE: Three views of the lumbar spine are submitted. COMPARISON: CT abdomen pelvis 09/21/2020. FINDINGS: There are 6 lumbar type vertebral bodies identified. No acute fracture or dislocation. Mild dextro cu rvature of the lumbar spine. Mild multilevel degenerative changes with disc space narrowed, endplate sclerosis, and anterior osteophytosis. Vertebral body heights are within normal limits. The overlying soft tissue appears unremarkable. Atherosclerotic calcification of the aorta. Pelvic phleboliths. IMPRESSION: 1. No acute fracture or dislocation is seen in the lumbar spine. 2. Mild multilevel degenerative disc disease.
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
[2022-01-26] MEDS ORDERED: diphenhydrAMINE 50 MG/ML 1 ML VIAL IM STA (23:12)
[2022-01-26] MEDS ORDERED: LORazepam 2 MG/ML INJ IM STA (23:12)
[2022-01-27 02:21] LABS: Basophils # (A) 0.1 k/uL (0-0.2); Basophils % (A) 1 %; Eosinophils # (A) 0.3 k/uL (0-0.7); Eosinophils % (A) 3 %; HCT 49.6 % (39.0-53.0); HGB 16.9 gm/dL (13.0-17.5); Lymphocytes # (A) 2.1 k/uL (1.0-4.8); Lymphocytes % (A) 22 %; MCH 32.2 pg (25.0-35.0); MCHC 34.1 g/dL (31.0-37.0); MCV 94.2 fL (80.0-100.0); Mean Platelet Volume 8.6; Monocytes % (A) 10 %; Neutrophils # (A) 6.1 k/uL (1.3-7.7); Neutrophils % (A) 62 %; Platelet Count 247 k/uL (150-450); RBC 5.26 m/uL (4.30-5.90); RDW 13.4 % (11.5-15.5); WBC 9.8 k/uL (3.8-10.6)
[2022-01-27 02:50] LABS: ALT 55 U/L (4-49); AST 42 U/L (17-59); African American GFR (CKD) >90 (>60 ml/min/1.73 sqM); Alkaline Phosphatase 69 U/L (38-126); Anion Gap 10 mmol/L; Blood Urea Nitrogen 19 mg/dL (9-20); Calcium 9.1 mg/dL (8.4-10.2); Carbon Dioxide 25 mmol/L (22-30); Chloride 100 mmol/L (98-107); Glucose 91 mg/dL (74-99); Non-African American GFR(CKD) >90 (>60 ml/min/1.73 sqM); Potassium 4.1 mmol/L (3.5-5.1); Sodium 135 mmol/L (137-145); Total Protein 6.5 g/dL (6.3-8.2)
[2022-01-27 10:54] LABS: Appearance,Urine Clear (Clear); Bilirubin,Urine Negative (Negative); Blood,Urine Negative (Negative); Color,Urine Yellow; Glucose,Urine (UA) Negative (Negative); Ketones,Urine Negative (Negative); Leukocyte Esterase,Urine Negative (Negative); Nitrite,Urine Negative (Negative); PH, Urine 5.5 (5.0-8.0); Protein,Urine Negative (Negative); Specific Gravity,Urine 1.024 (1.001-1.035); Urobilinogen,Urine <2.0 mg/dL (<2.0)
[2022-01-27 11:06] LABS: Amphetamine Screen,Urine Not Detected (NotDetected); Cocaine Screen,Urine Not Detected (NotDetected); Opiate Screen,Urine Not Detected (NotDetected); Phencyclidine Screen,Urine Not Detected (NotDetected); Urn Cannabinoid Scrn Not Detected (NotDetected)
[2022-01-27 11:07] LABS: Barbiturate Screen,Urine Not Detected (NotDetected); Benzodiazepines Screen,Urine Detected (NotDetected); Methadone Screen, Urine Not Detected (NotDetected); Oxycodone Screen, Urine Not Detected (NotDetected); Tricyclic Antidepressant,Urine Not Detected (NotDetected)
[2022-01-27] MEDS ORDERED: ACETAMINOPHEN TAB 500 MG TAB PO STA (17:20)
[2022-01-28] MEDS ORDERED: ACETAMINOPHEN TAB 325 MG TAB PO STA (06:02)
[2022-01-28] MEDS ORDERED: HALOPERIDOL LACTATE 5 MG/ML 1 ML VIAL IM PRN (15:39)
[2022-01-28] MEDS ORDERED: LORazepam 1 MG/0.5 ML VIAL IM PRN (15:44)
[2022-01-28] MEDS ORDERED: haloperidoL 5 MG TAB PO PRN (15:44)
[2022-01-28] MEDS: PALIPERIDONE 3 MG TAB.ER.24 PO SCH (20:26)
[2022-01-28] MEDS ORDERED: DULoxetine HCL 30 MG CAPSULE.DR PO SCH (21:00)
[2022-01-28] MEDS ORDERED: traZODone HCL 100 MG TAB PO SCH (21:00)
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
[2022-01-29] MEDS: NICOTINE 14MG/24HR PATCH TRANSDERM SCH (08:09)
[2022-01-29] MEDS: hydroCHLOROthiazide 25 MG TAB PO SCH (08:10)
[2022-01-29 11:05] LABS: Chol/HDL Ratio 3.34 Ratio; LDL Cholesterol,Calculated 104.5 mg/dL (0.0-131.0)
[2022-01-29] MEDS: IBUPROFEN 600 MG TAB PO PRN (16:40)
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
[2022-01-29] MEDS: MAG HYDROX/AL HYDROX/SIMETH 30 ML CUP PO PRN (19:59)
[2022-01-29] MEDS: traZODone HCL 100 MG TAB PO SCH (20:00)
[2022-01-29] MEDS: PALIPERIDONE 3 MG TAB.ER.24 PO SCH (20:01)
[2022-01-29] MEDS: MELATONIN 3 MG TABLET PO SCH (20:01)
[2022-01-29] MEDS: DULoxetine HCL 30 MG CAPSULE.DR PO SCH (20:01)
[2022-01-30] MEDS: NICOTINE 14MG/24HR PATCH TRANSDERM SCH (10:22)
[2022-01-30] MEDS: hydroCHLOROthiazide 25 MG TAB PO SCH (10:23)
[2022-01-30] MEDS: MAG HYDROX/AL HYDROX/SIMETH 30 ML CUP PO PRN (10:24)
[2022-01-30] MEDS: IBUPROFEN 600 MG TAB PO PRN (12:51)
[2022-01-30] MEDS: MELATONIN 3 MG TABLET PO SCH (20:17)
[2022-01-30] MEDS: traZODone HCL 100 MG TAB PO SCH (20:17)
[2022-01-30] MEDS: DULoxetine HCL 30 MG CAPSULE.DR PO SCH (20:17)
[2022-01-30] MEDS: PALIPERIDONE 3 MG TAB.ER.24 PO SCH (20:17)
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
[2022-01-31] MEDS: NICOTINE 14MG/24HR PATCH TRANSDERM SCH (08:02)
[2022-01-31] MEDS: hydroCHLOROthiazide 25 MG TAB PO SCH (08:02)
--- NOTE | 2022-01-31 11:41 | P.PN ---
Progress Note - Text Progress Note Date: 01/31/22 Interval History: Patient was seen resting in bed and was directable and agreeable to speak with screenplay writer in the office. Currently, the patient seems to report hopelessness in the context of homelessness. However, he is not reporting any issues regarding his appetite or sleep. He continues to endorse suicidal ideation due to his homelessness. He is not reporting any other significant psychiatric symptoms. He is not reporting any auditory or visual hallucinations. He is denying any paranoia or other delusions. Mental Status Exam: General Appearance: Patient appears to be stated age is alert, directable, and cooperative. Behavior: Patient is calmly lying down in bed without any agitated behavior. Speech: Patient's speech is fluent and nonpressured. Mood/Affect: Mood is depressed. Affect is constricted. Suicidality/Homicidality: Patient endorses suicidal ideation however denies any homicidal ideation. Perceptions: Patient denies any visual hallucinations and denies any auditory hallucinations Though content/process: There is no evidence of any delusional thought content and thought process is linear and goal-directed. Memory and concentration: AOX3, grossly intact for the purposes of this session Judgment and insight: Fair Vital Signs Temp 98.5 F 01/31/22 06:44 Pulse 71 01/31/22 06:44 Resp 16 01/31/22 06:44 BP 152/86 01/31/22 06:44 Pulse Ox 99 01/31/22 06:44 FiO2 Intake & Output 01/30/22 01/31/22 01/31/22 18:59 06:59 18:59 Weight 83.6 kg Assessment Major depressive disorder, recurrent, severe Cannabis use disorder, by history Alcohol use disorder, by history Opioid use disorder, by history Tobacco use disorder/nicotine dependence Rule out personality disorder History of psychosis per chart Homelessness Noncompliance with treatment Plan: -Patient continues to meet criteria for inpatient psychiatric admission for symptom stabilization and safety. Patient has signed adult voluntary form and medication consent and was placed in patient's chart. -Medications: Cymbalta 90 mg by mouth daily for depression/anxiety/pain Trazodone 200 mg daily at bedtime and melatonin 6 mg daily at bedtime for sleep Invega 3 mg daily at bedtime for mood stabilization -When necessary Ativan and Haldol for agitation/aggression. -NRT - nicotine patch -SW on board for discharge planning. Encouraged the patient to participate in milieu.
[2022-01-31] MEDS: MELATONIN 3 MG TABLET PO SCH (20:02)
[2022-01-31] MEDS: PALIPERIDONE 3 MG TAB.ER.24 PO SCH (20:02)
[2022-01-31] MEDS: DULoxetine HCL 30 MG CAPSULE.DR PO SCH (20:02)
[2022-01-31] MEDS: traZODone HCL 100 MG TAB PO SCH (20:02)
[2022-02-01] MEDS: hydroCHLOROthiazide 25 MG TAB PO SCH (09:15)
[2022-02-01] MEDS: NICOTINE 14MG/24HR PATCH TRANSDERM SCH (09:16)
--- NOTE | 2022-02-01 11:37 | P.PN ---
Progress Note - Text Progress Note Date: 02/01/22 Interval History: Patient was seen resting in bed and was directable and agreeable to speak with mortgage or loan underwriter in the office. The patient reports that he continues to be very suicidal. He attributes this to his ongoing feelings of hopelessness due to his current living situation. He reports no auditory or visual hallucinations. He reports no hypomanic or manic symptoms. He endorses signficant depressive symptoms including lack of appetite and poor hygiene. Mental Status Exam: General Appearance: Patient appears to be stated age is alert, directable, and cooperative. Behavior: Patient is calmly lying down in bed without any agitated behavior. Speech: Patient's speech is fluent and nonpressured. Mood/Affect: Mood is depressed. Affect is constricted. Suicidality/Homicidality: Patient endorses suicidal ideation however denies any homicidal ideation. Perceptions: Patient denies any visual hallucinations and denies any auditory hallucinations Though content/process: There is no evidence of any delusional thought content and thought process is linear and goal-directed. Memory and concentration: AOX3, grossly intact for the purposes of this session Judgment and insight: Fair Vital Signs Temp 97.4 F L 02/01/22 05:15 Pulse 68 02/01/22 05:15 Resp 18 02/01/22 05:15 BP 137/72 02/01/22 05:15 Pulse Ox 97 02/01/22 05:15 FiO2 Assessment Major depressive disorder, recurrent, severe Cannabis use disorder, by history Alcohol use disorder, by history Opioid use disorder, by history Tobacco use disorder/nicotine dependence Rule out personality disorder History of psychosis per chart Homelessness Noncompliance with treatment Plan: -Patient continues to meet criteria for inpatient psychiatric admission for symptom stabilization and safety. Patient has signed adult voluntary form and medication consent and was placed in patient's chart. -Medications: Cymbalta 90 mg by mouth daily for depression/anxiety/pain Trazodone 200 mg daily at bedtime and melatonin 6 mg daily at bedtime for sleep Invega 3 mg daily at bedtime for mood stabilization Start lithium 450 mg twice daily for suicidal ideation. -When necessary Ativan and Haldol for agitation/aggression. -NRT - nicotine patch -SW on board for discharge planning. Encouraged the patient to participate in milieu.
[2022-02-01] MEDS: IBUPROFEN 600 MG TAB PO PRN (12:48)
[2022-02-01] MEDS: LITHIUM CARBONATE ER 450 MG TABLET.ER PO SCH (19:54)
[2022-02-01] MEDS: traZODone HCL 100 MG TAB PO SCH (19:54)
[2022-02-01] MEDS: DULoxetine HCL 30 MG CAPSULE.DR PO SCH (19:54)
[2022-02-01] MEDS: MAGNESIUM HYDROXIDE 2,400 MG/10 ML CUP PO PRN (19:55)
[2022-02-01] MEDS: MELATONIN 3 MG TABLET PO SCH (19:55)
[2022-02-01] MEDS: PALIPERIDONE 3 MG TAB.ER.24 PO SCH (19:55)
[2022-02-02] MEDS: NICOTINE 14MG/24HR PATCH TRANSDERM SCH (08:48)
[2022-02-02] MEDS: hydroCHLOROthiazide 25 MG TAB PO SCH (08:50)
[2022-02-02] MEDS: LITHIUM CARBONATE ER 450 MG TABLET.ER PO SCH ×2 (08:50→20:05)
--- NOTE | 2022-02-02 12:46 | P.PN ---
Progress Note - Text Progress Note Date: 02/02/22 Interval History: Patient was seen resting in bed and was directable and agreeable to speak with documentation writer in his room. Currently, the patient continues to endorse suicidal ideation and hopelessness. He reports that he has been primarily isolative to himself in his room as he feels like he has no motivation to do anything. He has been in adherent with his medications and is not reporting any significant side effects. The patient reports that he is concerned about where he will be going upon discharge. He continues to endorse numerous plans for suicide including walking into traffic or trying to drown himself. Mental Status Exam: General Appearance: Patient appears to be stated age is alert, directable, and cooperative. Behavior: Patient is calmly lying down in bed without any agitated behavior. Speech: Patient's speech is fluent and nonpressured. Mood/Affect: Mood is depressed. Affect is blunted. Suicidality/Homicidality: Patient endorses suicidal ideation however denies any homicidal ideation. Perceptions: Patient denies any visual hallucinations and denies any auditory hallucinations Though content/process: There is no evidence of any delusional thought content and thought process is linear and goal-directed. Memory and concentration: AOX3, grossly intact for the purposes of this session Judgment and insight: Fair Vital Signs Temp 97.7 F 02/02/22 06:43 Pulse 74 02/02/22 06:43 Resp 14 02/02/22 06:43 BP 122/87 02/02/22 08:49 Pulse Ox 97 02/01/22 05:15 FiO2 Assessment Major depressive disorder, recurrent, severe Cannabis use disorder, by history Alcohol use disorder, by history Opioid use disorder, by history Tobacco use disorder/nicotine dependence Rule out personality disorder History of psychosis per chart Homelessness Noncompliance with treatment Plan: -Patient continues to meet criteria for inpatient psychiatric admission for symptom stabilization and safety. Patient has signed adult voluntary form and medication consent and was placed in patient's chart. -Medications: Cymbalta 90 mg by mouth daily for depression/anxiety/pain. Will consider changing this medication to a TCA tomorrow. Trazodone 200 mg daily at bedtime and melatonin 6 mg daily at bedtime for sleep Invega 3 mg daily at bedtime for mood stabilization lithium 450 mg twice daily for suicidal ideation. -When necessary Ativan and Haldol for agitation/aggression. -NRT - nicotine patch -SW on board for discharge planning. Encouraged the patient to participate in milieu.
[2022-02-02] MEDS: IBUPROFEN 600 MG TAB PO PRN (15:27)
[2022-02-02] MEDS: DULoxetine HCL 30 MG CAPSULE.DR PO SCH (20:05)
[2022-02-02] MEDS: PALIPERIDONE 3 MG TAB.ER.24 PO SCH (20:05)
[2022-02-02] MEDS: MELATONIN 3 MG TABLET PO SCH (20:05)
[2022-02-02] MEDS: traZODone HCL 100 MG TAB PO SCH (20:05)
[2022-02-02] MEDS: MAGNESIUM HYDROXIDE 2,400 MG/10 ML CUP PO PRN (20:06)
[2022-02-03] MEDS: hydroCHLOROthiazide 25 MG TAB PO SCH (07:49)
[2022-02-03] MEDS: LITHIUM CARBONATE ER 450 MG TABLET.ER PO SCH ×2 (07:49→19:59)
[2022-02-03] MEDS: IBUPROFEN 600 MG TAB PO PRN (09:47)
--- NOTE | 2022-02-03 11:44 | P.PN ---
Progress Note - Text Progress Note Date: 02/03/22 Interval History: Patient was seen resting in bed and was directable and agreeable to speak with abstract writer in the hallway with no one else present. Currently the patient expresses elevated anxiety in regards to his living situation. He continues to endorse hopelessness and helplessness. He states he has problems with sleep. He has been adherent with his medications and is not reporting any side effects. He states he is experiencing a panic attack during the interview however his pulse and disposition did not show any panic. Mental Status Exam: General Appearance: Patient appears to be stated age is alert, directable, and cooperative. Behavior: Patient is calmly seated without any agitated behavior. Speech: Patient's speech is fluent and nonpressured. Mood/Affect: Mood is depressed. Affect is constricted. Suicidality/Homicidality: Patient endorses suicidal ideation however denies any homicidal ideation. Perceptions: Patient denies any visual hallucinations and denies any auditory hallucinations Though content/process: There is no evidence of any delusional thought content and thought process is linear and goal-directed. Memory and concentration: AOX3, grossly intact for the purposes of this session Judgment and insight: Fair Vital Signs Temp 97.7 F 02/02/22 06:43 Pulse 74 02/02/22 06:43 Resp 14 02/02/22 06:43 BP 122/87 02/02/22 08:49 Pulse Ox 97 02/01/22 05:15 FiO2 Assessment Major depressive disorder, recurrent, severe Cannabis use disorder, by history Alcohol use disorder, by history Opioid use disorder, by history Tobacco use disorder/nicotine dependence Rule out personality disorder History of psychosis per chart Homelessness Noncompliance with treatment Plan: -Patient continues to meet criteria for inpatient psychiatric admission for symptom stabilization and safety. Patient has signed adult voluntary form and medication consent and was placed in patient's chart. -Medications: Continue Cymbalta 90 mg at bedtime for depression Trazodone 200 mg daily at bedtime and melatonin 6 mg daily at bedtime for sleep Invega 3 mg daily at bedtime for mood stabilization lithium 450 mg twice daily for suicidal ideation. Will order lithium level. -When necessary Ativan and Haldol for agitation/aggression. -NRT - nicotine patch -SW on board for discharge planning. Encouraged the patient to participate in milieu.
[2022-02-03 14:43] LABS: African American GFR (CKD) >90 (>60 ml/min/1.73 sqM); Anion Gap 16 mmol/L; Blood Urea Nitrogen 19 mg/dL (9-20); Carbon Dioxide 22 mmol/L (22-30); Chloride 97 mmol/L (98-107); Glucose 132 mg/dL (74-99); Lithium 0.7 mmol/L; Non-African American GFR(CKD) >90 (>60 ml/min/1.73 sqM); Sodium 135 mmol/L (137-145)
[2022-02-03 14:46] LABS: Potassium 4.8 mmol/L (3.5-5.1)
[2022-02-03] MEDS: MELATONIN 3 MG TABLET PO SCH (19:59)
[2022-02-03] MEDS: PALIPERIDONE 3 MG TAB.ER.24 PO SCH (19:59)
[2022-02-03] MEDS: traZODone HCL 100 MG TAB PO SCH (19:59)
[2022-02-03] MEDS: DULoxetine HCL 30 MG CAPSULE.DR PO SCH (19:59)
[2022-02-04] MEDS: LITHIUM CARBONATE ER 450 MG TABLET.ER PO SCH ×2 (07:56→20:05)
[2022-02-04] MEDS: hydroCHLOROthiazide 25 MG TAB PO SCH (07:56)
--- NOTE | 2022-02-04 10:14 | P.PN ---
Progress Note - Text Progress Note Date: 02/04/22 Interval History: Patient was seen resting in bed and was directable and agreeable to speak with writer technical publications in the hallway with no one else present. Currently, the patient continues to report elevated depression, anxiety, and suicidal ideation. Endorses some hope today that he will find housing through [facility]. He has been in adherent with his medication is not reporting any significant side effects. He is denying any auditory or visual hallucinations. He reports some paranoia or other delusions. Patient reports that he has been eating and sleeping well. Mental Status Exam: General Appearance: Patient appears to be stated age is alert, directable, and cooperative. Behavior: Patient is calmly seated without any agitated behavior. Speech: Patient's speech is fluent and nonpressured. Mood/Affect: Mood is depressed. Affect is constricted. Suicidality/Homicidality: Patient endorses suicidal ideation however denies any homicidal ideation. Perceptions: Patient denies any visual hallucinations and denies any auditory hallucinations Though content/process: There is no evidence of any delusional thought content and thought process is linear and goal-directed. Memory and concentration: AOX3, grossly intact for the purposes of this session Judgment and insight: Fair Vital Signs Temp 98.5 F 02/04/22 04:45 Pulse 74 02/04/22 04:45 Resp 17 02/04/22 04:45 BP 142/82 02/04/22 04:45 Pulse Ox 97 02/04/22 04:45 FiO2 Laboratory Results - Last 24 Hours 02/03/22 13:57 Sodium 135 L Potassium 4.8 Chloride 97 L Carbon Dioxide 22 Anion Gap 16 BUN 19 Creatinine 0.76 Est GFR (CKD-EPI)AfAm >90 Est GFR (CKD-EPI)NonAf >90 Glucose 132 H Calcium 10.0 [place] 0.7 Assessment Major depressive disorder, recurrent, severe Cannabis use disorder, by history Alcohol use disorder, by history Opioid use disorder, by history Tobacco use disorder/nicotine dependence Rule out personality disorder History of psychosis per chart Homelessness Noncompliance with treatment Plan: -Patient continues to meet criteria for inpatient psychiatric admission for symptom stabilization and safety. Patient has signed adult voluntary form and medication consent and was placed in patient's chart. -Medications: Continue Cymbalta 90 mg at bedtime for depression Trazodone 200 mg daily at bedtime and melatonin 6 mg daily at bedtime for sleep Increase Invega to 6 mg daily at bedtime for mood stabilization lithium 450 mg twice daily for suicidal ideation. -When necessary Ativan and Haldol for agitation/aggression. -NRT - nicotine patch -SW on board for discharge planning. Encouraged the patient to participate in milieu.
[2022-02-04] MEDS: MAG HYDROX/AL HYDROX/SIMETH 30 ML CUP PO PRN (16:16)
[2022-02-04] MEDS: PALIPERIDONE 3 MG TAB.ER.24 PO SCH (20:05)
[2022-02-04] MEDS: MELATONIN 3 MG TABLET PO SCH (20:05)
[2022-02-04] MEDS: traZODone HCL 100 MG TAB PO SCH (20:05)
[2022-02-04] MEDS: DULoxetine HCL 30 MG CAPSULE.DR PO SCH (20:06)
[2022-02-05] MEDS: hydroCHLOROthiazide 25 MG TAB PO SCH (08:03)
[2022-02-05] MEDS: LITHIUM CARBONATE ER 450 MG TABLET.ER PO SCH ×2 (08:03→19:56)
[2022-02-05] MEDS: LORazepam 1 MG TAB PO PRN (11:25)
[2022-02-05] MEDS: IBUPROFEN 600 MG TAB PO PRN (11:25)
[2022-02-05] MEDS: MAG HYDROX/AL HYDROX/SIMETH 30 ML CUP PO PRN (16:31)
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
[2022-02-05] MEDS: PANTOPRAZOLE 40 MG TABLET PO SCH (19:56)
[2022-02-05] MEDS: MELATONIN 3 MG TABLET PO SCH (19:56)
[2022-02-05] MEDS: traZODone HCL 100 MG TAB PO SCH (19:57)
[2022-02-05] MEDS: DULoxetine HCL 30 MG CAPSULE.DR PO SCH (19:57)
[2022-02-05] MEDS ORDERED: PALIPERIDONE 6 MG TAB.ER.24 PO SCH (21:00)
[2022-02-06] MEDS: IBUPROFEN 600 MG TAB PO PRN ×2 (09:08→15:06)
[2022-02-06] MEDS: LORazepam 1 MG TAB PO PRN ×3 (09:08→20:49)
[2022-02-06] MEDS: LITHIUM CARBONATE ER 450 MG TABLET.ER PO SCH ×2 (09:08→20:08)
[2022-02-06] MEDS: hydroCHLOROthiazide 25 MG TAB PO SCH (09:08)
[2022-02-06] MEDS: PANTOPRAZOLE 40 MG TABLET PO SCH (09:08)
--- NOTE | 2022-02-06 14:23 | P.PN ---
Subjective Progress Note Date: 02/06/22 Principal diagnosis: Assessment Major depressive disorder, recurrent, severe Cannabis use disorder, by history Alcohol use disorder, by history Opioid use disorder, by history Tobacco use disorder/nicotine dependence Rule out personality disorder History of psychosis per chart Homelessness Noncompliance with treatment Patient was trying to take a nap at 2 in the afternoon as he was unable to sleep more than our last.. Subjective: Currently, the patient continues to report elevated depression, anxiety, and suicidal ideation. Endorses some hope today that he will find housing through [facility]. He has been wandering if any of his medicines could be keeping up. He is denying any auditory or visual hallucinations. He reports some paranoia or other delusions. Patient reports that he has been eating but not sleeping well Objective: Mental Status Exam: General Appearance: Patient appears to be stated age is alert, directable, and cooperative. Behavior: Patient is calmly seated without any agitated behavior Speech: Patient's speech is fluent and nonpressured. Mood/Affect: Mood is depressed. Affect is constricted. Suicidality/Homicidality: Patient endorses suicidal ideation however denies any homicidal ideation. Perceptions: Patient denies any visual hallucinations and denies any auditory hallucinations but he does have racing intrusive agitating thoughts is patient when he lies at night Though content/process: There is no evidence of any delusional thought content and thought process is linear and goal-directed. Memory and concentration: He is alert and oriented to person place time and circumstance, grossly intact for the purposes of this session Judgment and insight: Fair Eye contact is good . Assessment Major depressive disorder, recurrent, severe Cannabis use disorder, by history Alcohol use disorder, by history Opioid use disorder, by history Tobacco use disorder/nicotine dependence Rule out personality disorder History of psychosis per chart Homelessness Noncompliance with treatment Plan: I think that the patient is unable to sleep because the Cymbalta at night is agitating his thoughts. -Patient continues to meet criteria for inpatient psychiatric admission for symptom stabilization and safety. Patient has signed adult voluntary form and medication consent and was placed in patient's chart. -Medications: Continue Cymbalta 90 mg will be moved to the morning for depression Trazodone 200 mg daily at bedtime and melatonin 6 mg daily at bedtime for sleep he says that this has worked firm in the past with the combination trazodone melatonin so I think the problem is not that the trazodone is keeping him up for this not working but that he can't overcome the racing thoughts Increase Invega to 9 mg daily at bedtime for mood stabilization . He tolerated the increased from 3-6 well but still did not sleep lithium 450 mg twice daily for suicidal ideation. -When necessary Ativan and Haldol for agitation/aggression. -NRT - nicotine patch -SW on board for discharge planning. Encouraged the patient to participate in milieu. Objective - Vital Signs Vital signs: Vital Signs Temp 98.0 F 02/06/22 07:06 Pulse 65 02/06/22 07:06 Resp 18 02/06/22 07:06 BP 129/66 02/06/22 07:06 Pulse Ox 95 02/05/22 06:21 FiO2 - Labs CBC & Chem 7: 01/27/22 01:51 02/03/22 13:57
[2022-02-06] MEDS: traZODone HCL 100 MG TAB PO SCH (20:08)
[2022-02-06] MEDS: MELATONIN 3 MG TABLET PO SCH (20:08)
[2022-02-06] MEDS: PALIPERIDONE 3 MG TAB.ER.24 PO SCH (20:08)
[2022-02-07 06:48] VITALS: RESP 16; TEMP 97.9
[2022-02-07] MEDS: hydroCHLOROthiazide 25 MG TAB PO SCH (08:35)
[2022-02-07] MEDS: LORazepam 1 MG TAB PO PRN ×2 (08:36→20:11)
[2022-02-07] MEDS: IBUPROFEN 600 MG TAB PO PRN ×2 (08:36→20:11)
[2022-02-07] MEDS: PANTOPRAZOLE 40 MG TABLET PO SCH (08:36)
[2022-02-07] MEDS: LITHIUM CARBONATE ER 450 MG TABLET.ER PO SCH ×2 (08:36→20:10)
[2022-02-07] MEDS: DULoxetine HCL 30 MG CAPSULE.DR PO SCH (08:37)
[2022-02-07] MEDS: MAG HYDROX/AL HYDROX/SIMETH 30 ML CUP PO PRN (09:06)
--- NOTE | 2022-02-07 11:24 | P.PN ---
Progress Note - Text Progress Note Date: 02/07/22 Interval History: Patient was seen sitting in the milieu and was directable and agreeable to speak with keno writer / runner in the hallway with no one else present. Currently, the patient continues to report suicidal ideation in the context of his homelessness and "nowhere to go to." Despite this, the patient has been in adherent with his medication is not reporting any significant side effects. He denies any auditory or visual hallucinations. He reports no paranoia or other delusions. Patient was informed that he is up for review tomorrow. The patient expresses concern about his discharge stating that he has nowhere to go to yet and has not heard back from [facility]. Despite this, the patient has been intermittently attending groups and displays no issues regarding his sleep or his appetite. The patient continues to report difficulty with sleep however has been noted by staff to sleep with no issues. Mental Status Exam: General Appearance: Patient appears to be stated age is alert, directable, and cooperative. Behavior: Patient is calmly seated without any agitated behavior. Speech: Patient's speech is fluent and nonpressured. Mood/Affect: Mood is improving mildly, affect is congruent and constricted. Suicidality/Homicidality: Patient reports suicidal ideation but no homicidal ideation, intention, and/or plan. Perceptions: Patient denies any visual hallucinations and denies any auditory hallucinations Though content/process: There is no evidence of any delusional thought content and thought process is linear and goal-directed. Memory and concentration: AOX3, grossly intact for the purposes of this session Judgment and insight: Poor Vital Signs Temp 97.9 F 02/07/22 06:32 Pulse 64 02/07/22 06:32 Resp 16 02/07/22 06:32 BP 124/75 02/07/22 06:32 Pulse Ox 96 02/07/22 06:32 FiO2 Intake & Output 02/06/22 02/07/22 02/07/22 18:59 06:59 18:59 Weight 88.3 kg Assessment: Major depressive disorder, recurrent, severe Cannabis use disorder, by history Alcohol use disorder, by history Opioid use disorder, by history Tobacco use disorder/nicotine dependence Rule out personality disorder History of psychosis per chart Homelessness Noncompliance with treatment Plan: -Patient continues to meet criteria for inpatient psychiatric admission for symptom stabilization and safety. Patient has signed adult voluntary form and medication consent and was placed in patient's chart. -Medications: Invega 9 mg daily at bedtime for mood augmentation Trazodone 20 mg by mouth at bedtime for depression/insomnia [facility] [facility] 450 mg by mouth twice a day for suicidal ideation Cymbalta 90 mg by mouth daily for depression -When necessary Ativan and Haldol for agitation/aggression. -SW on board for discharge planning. Encouraged the patient to participate in milieu.
[2022-02-07] MEDS: MELATONIN 3 MG TABLET PO SCH (20:09)
[2022-02-07] MEDS: traZODone HCL 100 MG TAB PO SCH (20:10)
[2022-02-07] MEDS: PALIPERIDONE 3 MG TAB.ER.24 PO SCH (20:10)
[2022-02-08 05:58] VITALS: BP 138/80; PULSE 62
[2022-02-08] MEDS: LORazepam 1 MG TAB PO PRN (07:53)
[2022-02-08] MEDS: IBUPROFEN 600 MG TAB PO PRN (07:53)
[2022-02-08] MEDS: DULoxetine HCL 30 MG CAPSULE.DR PO SCH (07:54)
[2022-02-08] MEDS: PANTOPRAZOLE 40 MG TABLET PO SCH (07:54)
[2022-02-08] MEDS: LITHIUM CARBONATE ER 450 MG TABLET.ER PO SCH (07:54)
[2022-02-08] MEDS: hydroCHLOROthiazide 25 MG TAB PO SCH (09:20)
--- NOTE | 2022-02-08 11:31 | P.DS ---
Providers Date of admission: 01/28/22 15:37 Expected date of discharge: 02/08/22 Attending physician: Denver Parham MD Consults: 01/28/22 15:39 Consult Physician Routine Consulting Provider: Rhoda Alaniz Consult Reason/Comments: medical management Do you want consulting provider notified?: Yes Primary care physician: Stated None - Discharge Diagnosis(es) (1) Major depressive disorder Current Visit: Yes Status: Acute Priority: High (2) Homelessness Current Visit: Yes Status: Acute Priority: High (3) Cannabis use disorder Current Visit: No Status: Chronic Priority: Low (4) Malingering Current Visit: Yes Status: Suspected Priority: Medium Hospital Course: Admission HPI: Initial psychiatric evaluation was completed by Dr. Bass on 01/29/2022 who wrote: "Patient is a 66 year old homeless male with poor social supports who presents with depression and suicidal ideation. HPI: Patient presented to the hospital complaining of feeling depressed and having suicidal ideations. He had been discharged from [facility] on 01/25/22 to a group home, but states the group home is closed and he slept outside. He reported plan of suicide by either shooting himself or jumping in the river. This is his third admission to [facility] in 2021. He was discharged on 01/25/22 on Cymbalta 90 mg daily for mood/anxiety/pain, Trazodone 200 mg QHS for sleep, Invega 3 mg QHS for mood stabilization/psychosis and Melatonin 6 mg daily for sleep. On assessment, patient states "I'm depressed, suicidal and in pain" with plan to jump in the river. He endorses feeling helpless and hopeless. He attempts to cooperate with assessment but has irritable edge and is argumentative with limited insight. He reports several life stressors including chronic pain from l eg injury, poor social supports, lack of transportation and claims he is unable to make it to outpatient appointments (states he cannot walk or ride a bike due to leg injury). Patient denies any homicidal ideations intent or plan. At this time, patient denies any auditory or visual hallucinations. Patient denies any flight of ideas racing thoughts and increased in goal directed behavior. He reports he did not get his medications filled after he left the hospital on 01/25/22 and only received Tylenol while in the ER. Patient denies recent drug or alcohol use, but does have a history of alcohol, opioid and cannabis abuse. He reports he last used alcohol last week, states "not much". He admits to smoking 1 ppd cigarettes when he can afford them. Per chart, he has a past diagnosis of schizoaffective diorder depressed type however he denies hearing voices and doesn't know he would have gotten the diagnosis of schizophrenia. He admits to a history of depression. He also has a history of alcohol, opioid and cannabis abuse. Patient was previously on Trazodone, Celexa and Invega and several other psychiatric medications, but states he had not been compliant with medications in years. He reports he stayed at a substance abuse treatment facility in [place] earlier this year for 3 months. Patient has been psychiatrically hospitalized several times in the past most recently in January 2022. Patient is supposed to be following up at [facility] however does not follow up, claims he is unable to make it to appointments due to his leg pain and lack of transportation. Patient denies any history of suicide attempts in the past. Hospital course: Upon admission to the unit patient was initially endorsing depression and suicidal ideation in the context of homelessness. Patient was however directable and agreeable to commence treatment. Patient got along well with other patients on the unit and followed unit protocol. Patient was compliant with the medications and denied any side effects throughout hospital course. Patient was started on his medications of Cymbalta, trazodone, and Invega. [place] was added to his regimen to address suicidal ideation and Invega was titrated. Despite his endorsement of depressive symptoms and a willingness to get better, the patient did not attend many groups. Despite encouragement to work on discharge planning and disposition, the patient remained disinterested. Furthermore, the patient was overheard by staff to discuss with another patient continuing endorsement of suicidal ideation in order to increase his length of s yelitza. When confronted, the patient vehemently states that he is depressed and suicidal. When informed that he would be discharged regardless of his endorsement due to his inconsistency of symptoms as well as his lack of observed criteria for inpatient psychiatric admission, the patient reluctantly agrees. On the day of discharge, the patient states that he is homeless and that he is suicidal because of his homelessness. He has been adherent with his medications and is not reporting any significant side effects. He states that he will be receiving incoming the next 2-3 days and is requesting group home here in the psychiatric unit until then. He was informed that this is not the case as this is not a group home and that we are a hospital. The patient does have a significant history of polysubstance abuse most counselor great length on abstaining from all substances including alcohol, marijuana, tobacco, and opiates. He was encouraged to be adherent with his medications and to follow-up with his outpatient appointments for mental health and for primary care. As the patient a longer met criteria for inpatient psychiatric admission and presented with a likelihood for secondary gain, he was subsequently discharged. Mental status exam: General Appearance: Patient appears to be stated age is alert, pleasant, and cooperative. Patient is in no acute distress and has fair hygiene and grooming Behavior: Patient is calmly seated without any agitated behavior. Speech: Patient's speech is fluent and nonpressured. Mood/Affect: Patient reports their mood is "I need to stay 1 more day", affect is congruent and euthymic. Suicidality/Homicidality: Report suicidal ideation in the context of his homelessness. Likely stating this for secondary gain for continued inpatient psychiatric admission. Perceptions: Patient denies any auditory or visual hallucinations. Though content/process: There is no evidence of any delusional thought content and thought process is linear and goal-directed. Despite endorsing suicidal ideation, the patient appears to be future and goal oriented. Memory and concentration: AOX3, grossly intact for the purposes of this session. Can spell "WORLD" backwards correctly. Judgment and insight: Improved with guarded prognosis Impression: Major depressive disorder, recurrent, severe Cannabis use disorder, by history Alcohol use disorder, by history Opioid use disorder, by history Tobacco use disorder/nicotine dependence Malingering - Strong suspicion for secondary gain of housing and group home. Plan: -Continue with discharge today as patient has improved and stabilized psychiatrically and is not currently an imminent threat to himself and/or others. Patient will remain at chronically elevated risk due to his homelessness. -Continue medications: Invega 9 mg daily at bedtime for mood augmentation Cymbalta 90 mg by mouth daily for depression Trazodone 200 mg daily at bedtime for depression [place] 450 mg by mouth twice a day for suicidal ideation Melatonin 6 mg daily at bedtime for insomnia -Patient was counseled on the need for medication compliance and appropriate follow-up at mental health and also primary care for medical issues. Patient verbalized understanding and agreed. -Social work to arrange for and conduct family meeting to ensure safety upon discharge and answer any questions/concerns. Social work also to arrange for pa jefferys follow up appointments for psychiatric care along with follow up with primary care provider. -Patient counseled on abstaining from recreational drugs and marijuana and alcohol. Was informed/educated on the adverse effects on their physical and mental health. Patient verbally agreed and understood. -Patient was instructed to return to the hospital or seek immediate medical care if their psychiatric or medical symptoms do worsen or reoccur. -Psychoeducation and supportive therapy provided to patient. Risks and benefits of pharmacological treatment versus the risks and benefits of nontreatment weight and discussed. Informed consent discussion held. Common side effects of psychotropics discussed such as, but not limited to headache, GI disturbance, sexual dysfunction, movement disorders, sedation, and orthostatic hypotension. Life threatening and blackbox warnings of prescribed medications also discussed. Potential risks of operating a vehicle or heavy machinery discussed with patient at length. Advised on importance of compliance and a reliable and responsible manner. Patient advised to review FDA consumer labeling of all medications prior to taking. Patient verbalized understanding of potential risks, and agrees with current treatment plan. Patient advised to medically contact physician/emergency personnel if any acute changes in condition occur. Vital Signs Temp 97.9 F 02/08/22 05:25 Pulse 62 02/08/22 05:25 Resp 16 02/08/22 05:25 BP 138/80 02/08/22 05:25 Pulse Ox 96 02/08/22 05:25 FiO2 Laboratory Results WBC 9.8 k/uL (3.8-10.6) 01/27/22 01:51 RBC 5.26 m/uL (4.30-5.90) 01/27/22 01:51 Hgb 16.9 gm/dL (13.0-17.5) 01/27/22 01:51 Hct 49.6 % (39.0-53.0) 01/27/22 01:51 MCV 94.2 fL (80.0-100.0) 01/27/22 01:51 MCH 32.2 pg (25.0-35.0) 01/27/22 01:51 MCHC 34.1 g/dL (31.0-37.0) 01/27/22 01:51 RDW 13.4 % (11.5-15.5) 01/27/22 01:51 Plt Count 247 k/uL (150-450) 01/27/22 01:51 MPV 8.6 01/27/22 01:51 Neutrophils % 62 % 01/27/22 01:51 Lymphocytes % 22 % 01/27/22 01:51 Monocytes % 10 % 01/27/22 01:51 Eosinophils % 3 % 01/27/22 01:51 Basophils % 1 % 01/27/22 01:51 Neutrophils # 6.1 k/uL (1.3-7.7) 01/27/22 01:51 Lymphocytes # 2.1 k/uL (1.0-4.8) 01/27/22 01:51 Monocytes # 1.0 k/uL (0-1.0) 01/27/22 01:51 Eosinophils # 0.3 k/uL (0-0.7) 01/27/22 01:51 Basophils # 0.1 k/uL (0-0.2) 01/27/22 01:51 Sodium 135 mmol/L (137-145) L 02/03/22 13:57 Potassium 4.8 mmol/L (3.5-5.1) 02/03/22 13:57 Chloride 97 mmol/L (98-107) L 02/03/22 13:57 Carbon Dioxide 22 mmol/L (22-30) 02/03/22 13:57 Anion Gap 16 mmol/L 02/03/22 13:57 BUN 19 mg/dL (9-20) 02/03/22 13:57 Creatinine 0.76 mg/dL (0.66-1.25) 02/03/22 13:57 Est GFR (CKD-EPI)AfAm >90 (>60 ml/min/1.73 sqM) 02/03/22 13:57 Est GFR (CKD-EPI)NonAf >90 (>60 ml/min/1.73 sqM) 02/03/22 13:57 Glucose 132 mg/dL (74-99) H 02/03/22 13:[address] Glu mg/dL 114 01/27/22 01:51 Hemoglobin A1c 5.6 % (0.0-6.0) 01/27/22 01:51 Calcium 10.0 mg/dL (8.4-10.2) 02/03/22 13:57 Total Bilirubin 1.0 mg/dL (0.2-1.3) 01/27/22 01:51 AST 42 U/L (17-59) 01/27/22 01:51 ALT 55 U/L (4-49) H 01/27/22 01:51 Alkaline Phosphatase 69 U/L (38-126) 01/27/22 01:51 Total Protein 6.5 g/dL (6.3-8.2) 01/27/22 01:51 Albumin 4.0 g/dL (3.5-5.0) 01/27/22 01:51 Triglycerides 108.00 mg/dL (0.00-149.00) 01/27/22 01:51 Cholesterol 180.00 mg/dL (0.00-200.00) 01/27/22 01:51 LDL Cholesterol, Calc 104.5 mg/dL (0.0-131.0) 01/27/22 01:51 VLDL Cholesterol, Calc 21.60 mg/dL (5.00-40.00) 01/27/22 01:51 HDL Cholesterol 53.90 mg/dL (40.00-60.00) 01/27/22 01:51 Cholesterol/HDL Ratio 3.34 Ratio 01/27/22 01:51 Urine Color Yellow 01/27/22 10:50 Urine Appearance Clear (Clear) 01/27/22 10:50 Urine pH 5.5 (5.0-8.0) 01/27/22 10:50 Ur Specific [place] 1.024 (1.001-1.035) 01/27/22 10:50 Urine Protein Negative (Negative) 01/27/22 10:50 Urine Glucose (UA) Negative (Negative) 01/27/22 10:50 Urine Ketones Negative (Negative) 01/27/22 10:50 Urine Blood Negative (Negative) 01/27/22 10:50 Urine Nitrite Negative (Negative) 01/27/22 10:50 Urine Bilirubin Negative (Negative) 01/27/22 10:50 Urine Urobilinogen <2.0 mg/dL (<2.0) 01/27/22 10:50 Ur Leukocyte Esterase Negative (Negative) 01/27/22 10:50 Urine Opiates Screen Not Detected (NotDetected) 01/26/22 10:50 Ur Oxycodone Screen Not Detected (NotDetected) 01/26/22 10:50 Urine Methadone Screen Not Detected (NotDetected) 01/26/22 10:50 Ur Propoxyphene Screen Not Detected (NotDetected) 01/26/22 10:50 Ur Barbiturates Screen Not Detected (NotDetected) 01/26/22 10:50 U Tricyclic Antidepress Not Detected (NotDetected) 01/26/22 10:50 Ur Phencyclidine Scrn Not Detected (NotDetected) 01/26/22 10:50 Ur Amphetamines Screen Not Detected (NotDetected) 01/26/22 10:50 U Methamphetamines Scrn Not Detected (NotDetected) 01/26/22 10:50 U Benzodiazepines Scrn Detected (NotDetected) H 01/26/22 10:50 [place] 0.7 mmol/L 02/03/22 13:57 Urine Cocaine Screen Not Detected (NotDetected) 01/26/22 10:50 U Marijuana (THC) Screen Not Detected (NotDetected) 01/26/22 10:50 Coronavirus (PCR) Not Detected (Not Detectd) 01/26/22 22:24 Allergies Allergy/AdvReac Type Severity Reaction Status Date / Time amoxicillin trihydrate Allergy Mild Rash/Hives Verified 01/26/22 17:36 [From Augmentin] ciprofloxacin [From Cipro] Allergy Mild Rash/Hives Verified 01/26/22 17:36 ciprofloxacin HCl Allergy Mild Rash/Hives Verified 01/26/22 17:36 [From Cipro] potassium clavulanate Allergy Mild Rash/Hives Verified 01/26/22 17:36 [From Augmentin] Sulfa (Sulfonamide Allergy Mild Rash/Hives Verified 01/26/22 17:36 Antibiotics) cefepime Allergy Rash/Hives Verified 01/26/22 17:36 hydrocodone [From Vicodin] Allergy Rash/Hives Verified 01/29/22 16:30 ibuprofen [From Motrin] AdvReac Mild Nausea & Verified 01/29/22 16:29 Vomiting & Diarrhea Patient Condition at Discharge: Stable Plan - Discharge Summary Discharge Rx Participant: No New Discharge Prescriptions: New Paliperidone [Invega] 9 mg PO HS 30 Days tab DULoxetine HCL [Cymbalta] 90 mg PO DAILY 30 Days cap traZODone HCL [Desyrel] 200 mg PO HS 30 Days tab [place] Carbonate ER [Lithobid] 450 mg PO BID 30 Days tab Melatonin 6 mg PO HS 30 Days tab Continue hydroCHLOROthiazide [Hydrodiuril] 25 mg PO DAILY 30 Days tab Discontinued traZODone HCL [Desyrel] 200 mg PO HS 30 Days tab Nicotine 14Mg/24Hr Patch [Habitrol] 1 patch TRANSDERM DAILY 14 Days patch Paliperidone [Invega] 3 mg PO HS 30 Days tab Melatonin 6 mg PO HS 30 Days tab DULoxetine HCL [Cymbalta] 90 mg PO HS 30 Days cap Discharge Medication List hydroCHLOROthiazide [Hydrodiuril] 25 mg PO DAILY 30 Days tab 01/25/22 [Rx] DULoxetine HCL [Cymbalta] 90 mg PO DAILY 30 Days cap 02/08/22 [Rx] [place] Carbonate ER [Lithobid] 450 mg PO BID 30 Days tab 02/08/22 [Rx] Melatonin 6 mg PO HS 30 Days tab 02/08/22 [Rx] Paliperidone [Invega] 9 mg PO HS 30 Days tab 02/08/22 [Rx] traZODone HCL [Desyrel] 200 mg PO HS 30 Days tab 02/08/22 [Rx] Follow up Appointment(s)/Referral(s): None,Stated [Primary Care Provider] - 1-2 days Discharge Disposition: HOME SELF-CARE
== END 2022-02-08 15:58 | disposition home or self-care (01) | DRG 885 ==
LOC: EC 10:10 → 3MHU 01-28 15:37
PROVIDERS: ADMIT Psychiatry & Neurology Psychiatry; ATTEND Psychiatry & Neurology Psychiatry
DX: F33.2 Major depressive disorder, recurrent severe without psychotic features (principal); R45.851 Suicidal ideations; M54.50 Low back pain, unspecified; I10 Essential (primary) hypertension; J45.909 Unspecified asthma, uncomplicated; J44.9 Chronic obstructive pulmonary disease, unspecified; I25.2 Old myocardial infarction; M19.90 Unspecified osteoarthritis, unspecified site; F41.9 Anxiety disorder, unspecified; F32.A Depression, unspecified; Z79.899 Other long term (current) drug therapy; Z79.84 Long term (current) use of oral hypoglycemic drugs; Z79.83 Long term (current) use of bisphosphonates; Z88.0 Allergy status to penicillin; Z20.822 Contact with and (suspected) exposure to COVID-19; Z88.2 Allergy status to sulfonamides; Z88.1 Allergy status to other antibiotic agents; Z88.5 Allergy status to narcotic agent; Z88.6 Allergy status to analgesic agent; W19.XXXA Unspecified fall, initial encounter; F12.90 Cannabis use, unspecified, uncomplicated; F17.210 Nicotine dependence, cigarettes, uncomplicated; F22 Delusional disorders; F41.0 Panic disorder [episodic paroxysmal anxiety]; F43.10 Post-traumatic stress disorder, unspecified; G47.00 Insomnia, unspecified; G89.29 Other chronic pain; W01.0XXA Fall on same level from slipping, tripping and stumbling without subsequent striking against object, initial encounter; Z59.01 Sheltered homelessness; Z59.82 Transportation insecurity; Z76.5 Malingerer [conscious simulation]; Z91.14 Patient's other noncompliance with medication regimen; Z91.199 Patient's noncompliance with other medical treatment and regimen due to unspecified reason
CPT/HCPCS: 36415; 72100; 80048; 80053; 80061; 80178; 80306; 81003; 82075; 83036; 85025; 87635; 96372; 99285

== ENCOUNTER 2022-02-18 21:44 | Inpatient (IN) | payer MEDICARE, MEDICAID ==
[2022-02-19 03:34] LABS: Basophils # (A) 0.1 k/uL (0-0.2); Basophils % (A) 1 %; Eosinophils # (A) 0.6 k/uL (0-0.7); Eosinophils % (A) 4 %; HCT 48.5 % (39.0-53.0); HGB 17.2 gm/dL (13.0-17.5); Lymphocytes % (A) 22 %; MCH 32.9 pg (25.0-35.0); MCHC 35.4 g/dL (31.0-37.0); Mean Platelet Volume 8.2; Monocytes # (A) 0.6 k/uL (0-1.0); Monocytes % (A) 4 %; Neutrophils # (A) 8.9 k/uL (1.3-7.7); Neutrophils % (A) 67 %; Platelet Count 269 k/uL (150-450); RBC 5.22 m/uL (4.30-5.90); RDW 13.1 % (11.5-15.5); WBC 13.4 k/uL (3.8-10.6)
[2022-02-19 03:42] LABS: Appearance,Urine Clear (Clear); Bilirubin,Urine Negative (Negative); Blood,Urine Negative (Negative); Color,Urine Yellow; Glucose,Urine (UA) Negative (Negative); Ketones,Urine Negative (Negative); Leukocyte Esterase,Urine Negative (Negative); Nitrite,Urine Negative (Negative); Protein,Urine Trace (Negative); Specific Gravity,Urine 1.012 (1.001-1.035); Urobilinogen,Urine <2.0 mg/dL (<2.0)
[2022-02-19 03:58] LABS: ALT 33 U/L (4-49); AST 38 U/L (17-59); African American GFR (CKD) >90 (>60 ml/min/1.73 sqM); Albumin 4.2 g/dL (3.5-5.0); Alkaline Phosphatase 75 U/L (38-126); Anion Gap 11 mmol/L; Blood Urea Nitrogen 11 mg/dL (9-20); Calcium 9.3 mg/dL (8.4-10.2); Carbon Dioxide 21 mmol/L (22-30); Chloride 105 mmol/L (98-107); Glucose 88 mg/dL (74-99); Non-African American GFR(CKD) >90 (>60 ml/min/1.73 sqM); Potassium 3.8 mmol/L (3.5-5.1); Sodium 137 mmol/L (137-145); Total Bilirubin 0.7 mg/dL (0.2-1.3); Total Protein 6.9 g/dL (6.3-8.2)
[2022-02-19 04:09] LABS: Amphetamine Screen,Urine Not Detected (NotDetected); Barbiturate Screen,Urine Not Detected (NotDetected); Benzodiazepines Screen,Urine Detected (NotDetected); Cocaine Screen,Urine Not Detected (NotDetected); Methadone Screen, Urine Not Detected (NotDetected); Opiate Screen,Urine Not Detected (NotDetected); Oxycodone Screen, Urine Not Detected (NotDetected); Phencyclidine Screen,Urine Not Detected (NotDetected); Tricyclic Antidepressant,Urine Not Detected (NotDetected); Urn Cannabinoid Scrn Detected (NotDetected)
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
[2022-02-21] MEDS ORDERED: LORazepam 1 MG TAB PO PRN (17:16)
[2022-02-21] MEDS ORDERED: ACETAMINOPHEN TAB 325 MG TAB PO PRN (17:16)
[2022-02-21] MEDS ORDERED: MAGNESIUM HYDROXIDE 2,400 MG/10 ML CUP PO PRN (17:16)
[2022-02-21] MEDS ORDERED: MAG HYDROX/AL HYDROX/SIMETH 30 ML CUP PO PRN (17:16)
[2022-02-21] MEDS ORDERED: LORazepam 1 MG/0.5 ML VIAL IM PRN (17:18)
[2022-02-21 18:19] VITALS: TEMP 97.4
[2022-02-21] MEDS: NICOTINE 21MG/24HR PATCH TRANSDERM SCH (18:34)
[2022-02-21] MEDS ORDERED: OLANZapine 5 MG TAB PO SCH (21:00)
[2022-02-21] MEDS ORDERED: traZODone HCL 100 MG TAB PO SCH (21:00)
[2022-02-21] MEDS: LITHIUM CARBONATE ER 450 MG TABLET.ER PO SCH (21:13)
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
[2022-02-22] MEDS ORDERED: ALBUTEROL INHALER 60 PUFF/8 GM INHALER (MHU) INHALATION PRN (03:58)
[2022-02-22] MEDS ORDERED: NICOTINE 14MG/24HR PATCH TRANSDERM SCH (09:00)
[2022-02-22] MEDS: NICOTINE 21MG/24HR PATCH TRANSDERM SCH (09:07)
[2022-02-22] MEDS: LITHIUM CARBONATE ER 450 MG TABLET.ER PO SCH (09:07)
[2022-02-22] MEDS: DULoxetine HCL 30 MG CAPSULE.DR PO SCH (09:08)
[2022-02-22] MEDS: amLODIPine 5 MG TAB PO SCH (09:08)
[2022-02-22] MEDS: DULoxetine HCL 60 MG CAPSULE.DR PO SCH (09:08)
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
[2022-02-22] MEDS: ATORVASTATIN 20 MG TAB PO SCH (20:32)
[2022-02-22] MEDS: MELATONIN 3 MG TABLET PO SCH (20:32)
[2022-02-22] MEDS ORDERED: traZODone HCL 100 MG TAB PO SCH (21:00)
[2022-02-23 06:51] VITALS: RESP 16
[2022-02-23] MEDS: NICOTINE 21MG/24HR PATCH TRANSDERM SCH (08:10)
[2022-02-23] MEDS: DULoxetine HCL 60 MG CAPSULE.DR PO SCH (08:12)
[2022-02-23] MEDS: amLODIPine 5 MG TAB PO SCH (08:12)
[2022-02-23] MEDS: DULoxetine HCL 30 MG CAPSULE.DR PO SCH (08:12)
[2022-02-23 08:13] VITALS: BP 122/87; PULSE 102
--- NOTE | 2022-02-23 10:20 | P.PN ---
Progress Note - Text Progress Note Date: 02/23/22 Interval History: Patient was seen laying in bed today and was directable and agreeable to speak with editorial writer in the office. Patient continues to be laying in bed for most of the day and fairly isolative. He continues to be preoccupied with wanting to stay in the hospital and states that he feels "depressed". He states that he also is parenting anxiety. He states that he does not know where he wants to go upon discharge and claims that "[facility] is supposed to help me". We spoke about [facility] shelters however patient continues to be disinterested. He is taking his medications at this time. He claims that he did not sleep well last night and was requesting that his trazodone increased. He continues to endorse suicidal thoughts however no plan. At this time patient denies any homical ideations, intent or plan. Patient denies any auditory, visual hallucinations and denies any paranoia or delusions. Patient denies any side effects from the medications and has been compliant with meds. Mental Status Exam: General Appearance: Patient appears to be disheveled, older than stated age, improving hygiene, deformed left lower extremity Behavior: Patient is seated without any agitated behavior. Continues to be manipulative. Speech: Patient's speech is fluent and nonpressured. [place] Mood/Affect: Patient reports their mood is "depressed", affect is congruent and constricted. Suicidality/Homicidality: Patient denies having any homicidal ideation intent or plan. He endorses suicidal ideation with no plan. Perceptions: Patient denies any visual hallucinations and denies any auditory hallucinations. Though content/process: There is no evidence of any delusional thought content and thought process is linear and goal-directed. Memory and concentration: AOX3, grossly intact for the purposes of this session Judgment and insight: chronically limited. IMPRESSIONS: Major depressive disorder, recurrent, severe Cannabis use disorder Alcohol use disorder nicotine dependence Malingering Homelessness Plan: -Patient continues to meet criteria for inpatient psychiatric admission for symptom stabilization and safety. Patient has signed adult voluntary form and was placed in patient's chart. -Medications: increase Cymbalta 60 mg bid for depression/anxiety/pain, increase Trazodone 150 mg qhs for sleep and Melatonin 6 mg QHS for sleep, d/c Invega and replace with abilify PO 2.5 mg daily for mood adjunct. -When necessary Ativan and Haldol for agitation/aggression. -NRT - nicotine patch -SW on board for discharge planning. Encouraged the patient to participate in milieu. SW to speak to patient about shelters and other housing options and will likely discharge in 1-2 days.
[2022-02-23] MEDS: ARIPiprazole 5 MG TAB PO SCH (10:35)
[2022-02-23] MEDS: MELATONIN 3 MG TABLET PO SCH (20:34)
[2022-02-23] MEDS: ATORVASTATIN 20 MG TAB PO SCH (20:34)
[2022-02-23] MEDS ORDERED: traZODone HCL 50 MG TAB PO SCH (21:00)
[2022-02-23] MEDS ORDERED: PALIPERIDONE 3 MG TAB.ER.24 PO SCH (21:00)
[2022-02-24] MEDS: amLODIPine 5 MG TAB PO SCH (09:00)
[2022-02-24] MEDS: NICOTINE 21MG/24HR PATCH TRANSDERM SCH (09:00)
[2022-02-24] MEDS: ARIPiprazole 5 MG TAB PO SCH (09:00)
[2022-02-24] MEDS ORDERED: DULoxetine HCL 60 MG CAPSULE.DR PO SCH (09:00)
[2022-02-24] MEDS: DULoxetine HCL 60 MG CAPSULE.DR PO SCH (09:00)
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
[2022-02-24] MEDS ORDERED: MAG HYDROX/AL HYDROX/SIMETH 355 ML BOTTLE PO PRN (14:48)
== END 2022-02-24 15:25 | disposition home or self-care (01) | DRG 885 ==
LOC: EC 21:44 → 3MHU 02-21 15:04
PROVIDERS: ADMIT Psychiatry & Neurology Psychiatry; ATTEND Psychiatry & Neurology Psychiatry
DX: F33.2 Major depressive disorder, recurrent severe without psychotic features (principal); R45.851 Suicidal ideations; F10.10 Alcohol abuse, uncomplicated; F12.90 Cannabis use, unspecified, uncomplicated; F17.200 Nicotine dependence, unspecified, uncomplicated; F43.10 Post-traumatic stress disorder, unspecified; G47.00 Insomnia, unspecified; I10 Essential (primary) hypertension; I25.2 Old myocardial infarction; J44.9 Chronic obstructive pulmonary disease, unspecified; Z59.00 Homelessness unspecified; Z76.5 Malingerer [conscious simulation]; Z79.899 Other long term (current) drug therapy; Z91.14 Patient's other noncompliance with medication regimen; Z20.822 Contact with and (suspected) exposure to COVID-19
CPT/HCPCS: 36415; 80053; 80306; 81003; 82075; 84443; 85025; 87635; 99285

== ENCOUNTER 2022-09-28 15:51 | Inpatient (IN) | payer MEDICARE, MEDICAID ==
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
[2022-09-28 23:41] LABS: Appearance,Urine Clear (Clear); Bilirubin,Urine Negative (Negative); Blood,Urine Negative (Negative); Color,Urine Light Yellow; Glucose,Urine (UA) Negative (Negative); Ketones,Urine Negative (Negative); Leukocyte Esterase,Urine Negative (Negative); Nitrite,Urine Negative (Negative); Protein,Urine Negative (Negative); Specific Gravity,Urine 1.002 (1.001-1.035); Urobilinogen,Urine <2.0 mg/dL (<2.0)
[2022-09-28] MEDS: MAG HYDROX/AL HYDROX/SIMETH 30 ML CUP PO PRN (23:54)
[2022-09-29] MEDS ORDERED: traZODone HCL 100 MG TAB PO PRN
[2022-09-29] MEDS ORDERED: haloperidoL 5 MG TAB PO PRN
[2022-09-29] MEDS ORDERED: hydrOXYzine HCL 50 MG/ML 1 ML VIAL IM PRN
[2022-09-29] MEDS ORDERED: HALOPERIDOL LACTATE 5 MG/ML 1 ML VIAL IM PRN
[2022-09-29 04:34] LABS: Urine Alcohol Positive (Negative); Urine Barbiturate Negative (Negative); Urine Cocaine Negative (Negative); Urine Methadone Negative (Negative); Urine Opiates Negative (Negative); Urine Phencyclidine Negative (Negative)
[2022-09-29] MEDS ORDERED: MAGNESIUM HYDROXIDE 2,400 MG/30 ML CUP PO PRN (09:00)
[2022-09-29] MEDS: hydrOXYzine pamoate 25 MG CAP PO PRN (09:35)
[2022-09-29] MEDS: NICOTINE 14MG/24HR PATCH TRANSDERM SCH (09:41)
[2022-09-29] MEDS: LORazepam 1 MG TAB PO PRN ×2 (09:42→15:59)
[2022-09-29] MEDS: DULoxetine HCL 30 MG CAPSULE.DR PO SCH ×2 (11:06→21:18)
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
[2022-09-29] MEDS ORDERED: traZODone HCL 100 MG TAB PO SCH (21:00)
[2022-09-30] MEDS: LORazepam 1 MG TAB PO PRN ×3 (05:48→22:47)
[2022-09-30 07:42] LABS: Basophils % (A) 1 %; Eosinophils # (A) 0.3 k/uL (0-0.7); Eosinophils % (A) 4 %; HCT 52.7 % (39.0-53.0); Lymphocytes # (A) 1.1 k/uL (1.0-4.8); Lymphocytes % (A) 16 %; MCH 34.5 pg (25.0-35.0); MCHC 34.2 g/dL (31.0-37.0); MCV 100.8 fL (80.0-100.0); Mean Platelet Volume 8.8; Monocytes # (A) 0.3 k/uL (0-1.0); Monocytes % (A) 5 %; Neutrophils # (A) 4.8 k/uL (1.3-7.7); Neutrophils % (A) 73 %; Platelet Count 116 k/uL (150-450); RBC 5.22 m/uL (4.30-5.90); RDW 12.5 % (11.5-15.5); WBC 6.6 k/uL (3.8-10.6)
[2022-09-30 08:16] LABS: ALT 63 U/L (4-49); AST 125 U/L (17-59); African American GFR (CKD) >90 (>60 ml/min/1.73 sqM); Albumin 3.7 g/dL (3.5-5.0); Alkaline Phosphatase 84 U/L (38-126); Anion Gap 8 mmol/L; Blood Urea Nitrogen 9 mg/dL (9-20); Calcium 9.3 mg/dL (8.4-10.2); Carbon Dioxide 23 mmol/L (22-30); Chloride 104 mmol/L (98-107); Glucose 87 mg/dL (74-99); Non-African American GFR(CKD) >90 (>60 ml/min/1.73 sqM); Potassium 3.8 mmol/L (3.5-5.1); Sodium 135 mmol/L (137-145); Total Bilirubin 2.2 mg/dL (0.2-1.3); Total Protein 6.8 g/dL (6.3-8.2)
[2022-09-30] MEDS: NICOTINE 14MG/24HR PATCH TRANSDERM SCH (09:40)
[2022-09-30] MEDS: amLODIPine 2.5 MG TAB PO SCH (09:41)
[2022-09-30] MEDS: DULoxetine HCL 30 MG CAPSULE.DR PO SCH (09:41)
[2022-09-30] MEDS: ASPIRIN 81 MG PO SCH (09:41)
[2022-09-30] MEDS: ACETAMINOPHEN TAB 325 MG TAB PO PRN ×2 (09:50→15:56)
[2022-09-30] MEDS: MAG HYDROX/AL HYDROX/SIMETH 30 ML CUP PO PRN ×2 (09:51→15:57)
[2022-09-30] MEDS ORDERED: LORazepam 1 MG TAB PO STA (09:58)
--- NOTE | 2022-09-30 11:32 | P.PN ---
Progress Note - Text Progress Note Date: 09/30/22 Interval History: Patient was seen lying in bed this morning and was directable and agreeable to speak with public relations writer. Patient states that he is still feeling anxious and depressed. He claims that he feels like the medications have not been helping thus far. He states that he is still having thoughts of suicide as well however no intent or plan. Claimed that he has not been going to many groups at all since coming into the hospital. He states that he is trying to eat but his appetite still remains poor. Claims that he only got about 4 or 5 hours of sleep last night. Continues to be isolative, poor hygiene and grooming. She also is stating that he is still having some withdrawal symptoms at this time however was fairly vague about it. He was noted to be at the window earlier this morning requesting more Ativan. At this time patient denies any homical ideations, intent or plan. Patient denies any auditory, visual hallucinations and denies any paranoia or delusions. Patient denies any side effects from the medications and has been compliant with meds. Mental Status Exam: General Appearance: Patient appears to be disheveled, older than stated age, poor hygiene, deformed left lower extremity. longer hair. Behavior: Patient is laying in bed without any agitated behavior. anxious Speech: Patient's speech is fluent and nonpressured. [place] Mood/Affect: Patient reports their mood is "depressed and anxious", affect is congruent and constricted. Suicidality/Homicidality: Patient denies having any homicidal ideation intent or plan. He endorses suicidal ideation with no plan. Perceptions: Patient denies any visual hallucinations and denies any auditory hallucinations. Though content/process: There is no evidence of any delusional thought content and thought process is linear and goal-directed. focused on his sx. concrete. Memory and concentration: AOX3, grossly intact for the purposes of this session Judgment and insight: chronically poor IMPRESSIONS: Depressive disorder NOS Cannabis use disorder Alcohol use disorder severe dependence, currently in withdrawal Nicotine dependence Malingering PLAN: -Patient is admitted under voluntary petition/certification status to [facility]HU for stabilization of psychiatric symptoms and safety. Patient has not signed medica tion consent and is placed in patient's chart. -Medications: increase Cymbalta 30 mg daily + 60 mg qhs for depression/anxiety/pain, increase Trazodone 150 mg QHS for sleep/mood. librium 20 mg tid for etoh withdrawal with plan to taper down starting tomorrow. -vistaril and Haldol PRN for agitation/aggression -ciwa protocol with prn ativan for etoh withdrawal. -NRT - nicotine patch -SW on board for discharge planning. Encourage patient to participate in groups to work on coping skills. disposition either [facility] vs. going back to his friends house. likely discharge next week once patient improves psychiatrically.
[2022-09-30] MEDS ORDERED: DULoxetine HCL 60 MG CAPSULE.DR PO SCH (21:00)
[2022-09-30] MEDS ORDERED: traZODone HCL 50 MG TAB PO SCH (21:00)
[2022-09-30] MEDS: hydrOXYzine pamoate 25 MG CAP PO PRN (22:47)
[2022-10-01] MEDS: LORazepam 1 MG TAB PO PRN ×3 (06:39→23:01)
[2022-10-01] MEDS: amLODIPine 2.5 MG TAB PO SCH (08:52)
[2022-10-01] MEDS: ASPIRIN 81 MG PO SCH (08:52)
[2022-10-01] MEDS ORDERED: DULoxetine HCL 30 MG CAPSULE.DR PO SCH (09:00)
--- NOTE | 2022-10-01 09:56 | P.PN ---
Progress Note - Text Progress Note Date: 10/01/22 Interval history: Patient was seen lying in bed today and was directable and agreeable to speak with parts data writer. He continues to have marginal hygiene and grooming. He continues to be fairly concrete and medication focus. He states that he is still feeling "about the same" as yesterday and endorsing significant anxiety and depression. He claims that he is not hearing voices at this time. States that he had a difficult time sleeping last night and was "on and off". Continues to state that he has not been going to groups however we'll plan to do so today. We spoke about medication changes and parts data writer answered questions. Continues to state that he is feeling suicidal, no intent or plan. At this time patient denies any homicidal ideations intent or plan. Denies any Auditory or visual hallucinations. Patient denies any side effects from the medications and has been compliant with meds. Mental status exam: General Appearance: Patient appears to be mildly disheveled in appearance, longer hair, stated age is alert, directable, and attempts to be cooperative. Behavior: No agitated behavior. Patient is calm and directable. Laying in bed. Speech: Patient's speech is fluent and nonpressured. Monotone, evasive Mood/Affect: Mood is depressed and anxious, affect is congruent and constricted. Suicidality/Homicidality: Patient denies having any suicidal or homicidal ideation intent or plan. Perceptions: Patient denies any auditory or visual hallucinations. Though content/process: There is no evidence of any delusional thought content and thought process is linear and goal-directed. Focus on his medications. Superficial. Memory and concentration: AOX3, grossly intact for the purposes of this session Judgment and insight: Medically poor, improving mildly Assessment/Plan: Continue with current diagnosis. Patient continues to meet criteria for inpatient psychiatric admission for symptom stabilization and safety.Patient will be maintained on current psychotropic medication regimen, with the exception of increasing trazodone to 200 mg daily at bedtime for insomnia/mood, decreasing schedule Librium to 10 mg 4 times a day for withdrawal symptoms and continue to taper. Increase Cymbalta to 60 mg twice a day for mood/anxiety, added Abilify by mouth 2.5 mg daily for mood adjunct. Monitor for medication compliance and for any psychotropic medication side effects. Will continue to monitor ongoing response to treatment. Encouraged participation in milieu.
[2022-10-01] MEDS: NICOTINE 14MG/24HR PATCH TRANSDERM SCH (11:22)
[2022-10-01] MEDS: ARIPiprazole 5 MG TAB PO SCH (11:22)
[2022-10-01] MEDS: MAG HYDROX/AL HYDROX/SIMETH 30 ML CUP PO PRN (17:01)
[2022-10-01] MEDS: traZODone HCL 100 MG TAB PO SCH (21:34)
[2022-10-01] MEDS: DULoxetine HCL 60 MG CAPSULE.DR PO SCH (21:34)
[2022-10-02] MEDS: LORazepam 1 MG TAB PO PRN ×3 (06:46→19:11)
[2022-10-02] MEDS: ARIPiprazole 5 MG TAB PO SCH (08:51)
[2022-10-02] MEDS: DULoxetine HCL 60 MG CAPSULE.DR PO SCH ×2 (08:51→20:34)
[2022-10-02] MEDS: ASPIRIN 81 MG PO SCH (08:51)
[2022-10-02] MEDS: amLODIPine 2.5 MG TAB PO SCH (08:52)
--- NOTE | 2022-10-02 10:35 | P.PN ---
Progress Note - Text Progress Note Date: 10/02/22 Interval history: Patient was seen lying in bed today and was directable and agreeable to speak with health underwriter. He continues to have marginal hygiene and grooming. He needs to be fairly concrete in his answers. He continues to perseverate on feeling "anxious and depressed". He also claims that he is feeling suicidal still. He claims that the withdrawal symptoms have been gradually improving. States that he was able to sleep a bit better last night. We spoke about sleep hygiene which is fairly superficial about. States that he did go to 2 groups yesterday in the evening. Remains to be fairly isolative. Continues to state that he is feeling suicidal, no intent or plan. At this time patient denies any homicidal ideations intent or plan. Denies any Auditory or visual hallucinations. Patient denies any side effects from the medications and has been compliant with meds. Mental status exam: General Appearance: Patient appears to be mildly disheveled in appearance, longer hair, stated age is alert, directable, and attempts to be cooperative. Behavior: No agitated behavior. Patient is calm and directable. Laying in bed. Speech: Patient's speech is fluent and nonpressured. Monotone, evasive, improving mildly Mood/Affect: Mood is depressed and anxious, affect is congruent and constricted. Suicidality/Homicidality: Patient denies having any suicidal or homicidal ideation intent or plan. Perceptions: Patient denies any auditory or visual hallucinations. Though content/process: There is no evidence of any delusional thought content and thought process is linear and goal-directed. Superficial. Memory and concentration: AOX3, grossly intact for the purposes of this session Judgment and insight: Chronically poor, improving mildly Assessment/Plan: Continue with current diagnosis. Patient continues to meet criteria for inpatient psychiatric admission for symptom stabilization and safety.Patient will be maintained on current psychotropic medication regimen, continue with trazodone 200 mg daily at bedtime for insomnia/mood, decreasing schedule Librium to 10 mg 3 times a day for withdrawal symptoms and continue to taper. continue Cymbalta 60 mg twice a day for mood/anxiety, Abilify by mouth 2.5 mg daily for mood adjunct. Monitor for medication compliance and for any psychotropic medication side effects. Will continue to monitor ongoing response to treatment. Encouraged participation in milieu.
[2022-10-02] MEDS: NICOTINE 14MG/24HR PATCH TRANSDERM SCH (12:01)
[2022-10-02] MEDS: MAG HYDROX/AL HYDROX/SIMETH 30 ML CUP PO PRN (17:12)
[2022-10-02] MEDS: traZODone HCL 100 MG TAB PO SCH (20:34)
[2022-10-03] MEDS: hydrOXYzine pamoate 25 MG CAP PO PRN (02:32)
[2022-10-03] MEDS: ARIPiprazole 5 MG TAB PO SCH (08:54)
[2022-10-03] MEDS: amLODIPine 2.5 MG TAB PO SCH (08:54)
[2022-10-03] MEDS: ASPIRIN 81 MG PO SCH (08:55)
[2022-10-03] MEDS: DULoxetine HCL 60 MG CAPSULE.DR PO SCH ×2 (08:55→21:41)
[2022-10-03] MEDS: NICOTINE 14MG/24HR PATCH TRANSDERM SCH (08:56)
[2022-10-03] MEDS ORDERED: ARIPiprazole 5 MG TAB PO ONE (10:30)
--- NOTE | 2022-10-03 10:31 | P.PN ---
Progress Note - Text Progress Note Date: 10/03/22 Interval history: Patient was seen lying in bed today and was directable and agreeable to speak with telegraphic typewriter installer. Patient continues to endorse continuing to feel depressed and anxious. She was asking about haloperidol as he took it as a when necessary last night. He claims that "they wouldn't give me Ativan for my anxiety". He states that he was sleeping on and off last night. Claims that he was out for meals earlier today. He has been less visible on the unit thus far. He claims that he is still feeling fairly depressed and anxious. Claims that he is still having suicidal thoughts however no intent or plan at this time. Claims that his appetite is mildly improving. We spoke about sleep hygiene which is fairly superficial about. Remains to be fairly isolative. Continues to state that he is feeling suicidal, no intent or plan. At this time patient denies any homicidal ideations intent or plan. Denies any Auditory or visual hallucinations. Patient denies any side effects from the medications and has been compliant with meds. Mental status exam: General Appearance: Patient appears to be mildly disheveled in appearance, longer hair, stated age is alert, directable, and attempts to be cooperative. Behavior: No agitated behavior. Patient is calm and directable. Laying in bed. Speech: Patient's speech is fluent and nonpressured. Monotone, evasive, improving mildly Mood/Affect: Mood is depressed and anxious, affect is congruent and constricted. Suicidality/Homicidality: Patient denies having any suicidal or homicidal ideation intent or plan. Perceptions: Patient denies any auditory or visual hallucinations. Though content/process: There is no evidence of any delusional thought content and thought process is linear and goal-directed. Superficial. concrete. Memory and concentration: AOX3, grossly intact for the purposes of this session Judgment and insight: Chronically poor, improving mildly Assessment/Plan: Continue with current diagnosis. Patient continues to meet criteria for inpatient psychiatric admission for symptom stabilization and safety.Patient will be maintained on current psychotropic medication regimen, continue with trazodone 200 mg daily at bedtime for insomnia/mood, decreasing schedule Librium to 10 mg BID for withdrawal symptoms and continue to taper. continue Cymbalta 60 mg twice a day for mood/anxiety, increase Abilify by mouth 5 mg daily for mood adjunct. Monitor for medication compliance and for any psychotropic medication side effects. Will continue to monitor ongoing response to treatment. Encouraged participation in milieu. likely discharge in 1-2 days
[2022-10-03] MEDS: traZODone HCL 100 MG TAB PO SCH (21:41)
[2022-10-04] MEDS: NICOTINE 14MG/24HR PATCH TRANSDERM SCH (08:42)
[2022-10-04] MEDS: ASPIRIN 81 MG PO SCH (08:43)
[2022-10-04] MEDS: amLODIPine 2.5 MG TAB PO SCH (08:43)
[2022-10-04] MEDS: ARIPiprazole 5 MG TAB PO SCH (08:43)
[2022-10-04] MEDS: DULoxetine HCL 60 MG CAPSULE.DR PO SCH ×2 (08:43→21:18)
--- NOTE | 2022-10-04 11:06 | P.PN ---
Progress Note - Text Progress Note Date: 10/04/22 Interval history: Patient was seen lying in bed today and was directable and agreeable to speak with typewriter repairer. Patient states that he was sleeping earlier. Patient continues to endorse continuing to feel depressed and anxious over this as mildly improved since yesterday. He continues to state that he feels "not that I could" however was fairly vague about his actual symptoms. States he still does not want to go to rehab or seek substance use treatment. Claims that he has been up for meals, refusing to go to groups at this time. States that she was sleeping on and off throughout the night Claims that he is still having suicidal thoughts however no intent or plan at this time. Claims that his appetite is mildly improving. Remains to be fairly isolative. At this time patient denies any homicidal ideations intent or plan. Denies any Auditory or visual hallucinations. Patient denies any side effects from the medications and has been compliant with meds. Mental status exam: General Appearance: Patient appears to be mildly disheveled in appearance, longer hair, stated age is alert, directable, and attempts to be cooperative. Behavior: No agitated behavior. Patient is calm and directable. Laying in bed. Speech: Patient's speech is fluent and nonpressured. Monotone, evasive, improving mildly Mood/Affect: Mood is depressed and anxious, affect is congruent and constricted. Suicidality/Homicidality: Patient denies having any suicidal or homicidal ideation intent or plan. Perceptions: Patient denies any auditory or visual hallucinations. Though content/process: There is no evidence of any delusional thought content and thought process is linear and goal-directed. Superficial. concrete, mildly improving Memory and concentration: AOX3, grossly intact for the purposes of this session Judgment and insight: Chronically poor, improving mildly Assessment/Plan: Continue with current diagnosis. Patient continues to meet criteria for inpatient psychiatric admission for symptom stabilization and safety.Patient will be maintained on current psychotropic medication regimen, continue with trazodone 200 mg daily at bedtime for insomnia/mood, d/c Librium today. continue Cymbalta 60 mg twice a day for mood/anxiety, continue Abilify by mouth 5 mg daily for mood adjunct. Monitor for medication compliance and for any psychotropic medication side effects. Will continue to monitor ongoing response to treatment. Encouraged participation in milieu. likely discharge t omorrow back to his friends house with [facility] f/u
[2022-10-04] MEDS: traZODone HCL 100 MG TAB PO SCH (21:21)
[2022-10-04] MEDS: MAG HYDROX/AL HYDROX/SIMETH 30 ML CUP PO PRN (21:24)
[2022-10-05 07:04] VITALS: BP 152/79; PULSE 56; RESP 16; TEMP 97.8
[2022-10-05] MEDS: DULoxetine HCL 60 MG CAPSULE.DR PO SCH (08:46)
[2022-10-05] MEDS: amLODIPine 2.5 MG TAB PO SCH (08:46)
[2022-10-05] MEDS: NICOTINE 14MG/24HR PATCH TRANSDERM SCH (08:47)
[2022-10-05] MEDS: ASPIRIN 81 MG PO SCH (08:47)
[2022-10-05] MEDS: ARIPiprazole 5 MG TAB PO SCH (08:47)
--- NOTE | 2022-10-05 09:54 | P.DS ---
Providers Date of admission: 09/28/22 22:51 Expected date of discharge: 10/05/22 Attending physician: Arvind Mcdonnell MD Consults: 09/28/22 22:58 Consult Physician Routine Consulting Provider: Pierre Hanson Consult Reason/Comments: H&P Do you want consulting provider notified?: Yes, Notify in am Primary care physician: Ana Renteria - Discharge Diagnosis(es) (1) Depression, unspecified Current Visit: Yes Status: Acute Priority: High (2) Cannabis use disorder Current Visit: Yes Status: Acute Priority: Medium (3) Alcohol use disorder, severe, dependence Current Visit: Yes Status: Acute Priority: High (4) Nicotine dependence Current Visit: Yes Status: Acute Priority: Low (5) Malingering Current Visit: Yes Status: Acute Priority: High Hospital Course: Admission HPI: Admission note was completed by appeals writer "Patient is a 66 year old homeless male with poor social supports who presents with depression and suicidal ideation, currently living at his friends home. Patient has a long hx of mental illness, depression, polysubstance abuse, homelessness, non compliance and [facility] along with medical [facility]. Patient presented yesterday complaining of alcohol intoxication/abuse also an increase in his depression and also suicidal thoughts. Patient was last admitted to the mental health unit in February 2022 and has not been following up with [facility] or taking his antidepressants. Patient was admitted voluntarily to the mental health unit last night and seen this morning laying in his bed. Patient appeared to be disheveled in appearance, poor hygiene and grooming. He was sleeping however was awoken by appeals writer. He claims that he has been drinking approximately 6 beers a day for several weeks now and states that he is now going through alcohol withdrawal, he was claiming that he is feeling anxious, heart was racing and also mild tremors at this time. He claims that he came to the hospital because he needed help with his depression and also suicidal thoughts. He states that he did not have a specific plan however did leave his friend's house. He is denying any problems with his friend or other acute stressors going on. He states that he is also having significant anxiety at this time. He claimed that he has not been compliant with his psychotropic medications. Has not been going to [facility] for follow-up. States that his sleep and appetite are poor at this time. He was agreeable to be restarted back on his medications. He has a chronic hist ory of malingering. Patient is endorsing suicidal thoughts now specific plan at this time. He is denying any homicidal ideations. States that he is not hearing voices or visual hallucinations. he claims that he is drinking etoh about 6 beers a day, using THC daily and admitts to smoking cigarettes daily." Hospital course: Upon admission to the unit patient was directable and agreeable to commence treatment and signed adult voluntary form, Patient mainly kept to himself during hospitalization however with time and treatment he got along well with other patients on the unit and followed unit protocol. Patient was compliant with the medications and denied any side effects throughout hospital course. Patient was started on cymbalta and increased to 60 mg bid for mood/anxiety, abilify po 5 mg daily for mood adjunct, trazodone 200 mg qhs for insomnia/mood, vistaril prn for anxiety. Patient was also placed on scheduled librium taper with ciwa and prn ativan protocol for etoh withdrawal. Patient attended only limited amount of groups and mainly kept to himself. Patient was also seen by medical team for history and physical exam. Throughout the course of the hospitalization patient gradually improved with regards to mood, anxiety, suicidal thoughts, sleep and returned back to their baseline level of functioning. Patient appears to have chronic and persistent suicidal thoughts, however no plan or intent and likely related to malingering to stay in the hospital as patient is chronically homeless and abusing subtances. On the day of discharge patient denied any suicidal or homicidal ideations intent or plan denied any auditory or visual hallucinations. Patient endorsed wanting to live for his health and to find a home. The patient denied any access to guns or weapons. Patient denied any paranoia and did not endorse any delusions. Patient does have a significant history of substance abuse and was counseled on abstaining from all substances including alcohol and marijuana. Patient was offered however declined inpatient substance-abuse rehab. Patient elected to do outpatient substance use treatment program through [facility] however has been known to not follow up with his outpt appointments. Patient was also counseled on the medications and need for regular compliance and was encouraged to follow-up with their outpatient appointment for mental health and also for primary care. patient requested to be dischraged back to his friends house. Mental status exam: General Appearance: Patient appears to have longer, unkempt hair, stated age is alert, directable. Patient is in no acute distress and has mildly improved hygiene and grooming Behavior: Patient is calmly seated without any agitated behavior. manipulative at times Speech: Patient's speech is fluent and nonpressured. Mood/Affect: Patient reports their mood is "ok", affect is congruent and constricted Suicidality/Homicidality: Patient denies having any homicidal ideation intent or plan. continues to have chronic and persistent SI, no plan or intent and is future oriented today Perceptions: Patient denies any auditory or visual hallucinations. Though content/process: There is no evidence of any delusional thought content and thought process is linear and goal-directed. more future oriented. concrete. Memory and concentration: AOX3, grossly intact for the purposes of this session. Can spell "WORLD" backwards correctly. Judgment and insight: chronically poor, however has improved with guarded prognosis Impression: Depressive disorder unspecified Malingering Cannabis use disorder Alcohol use disorder severe dependence Nicotine dependence Plan: -Continue with discharge today as patient has improved and stabilized psychiatrically and is not currently an imminent threat to himself and/or others. Patient will remain at chronically elevated risk for harm to self and/or others due to his polysubstance abuse and chronically poor insight/judgment. -Continue medications: Continue trazodone 200 mg daily at bedtime for insomnia/mood, Librium and Ativan were tapered off. Cymbalta 60 mg twice a day for depression/anxiety/pain, Vistaril when necessary for anxiety, Abilify by mouth 5 mg daily for mood adjunct. -Patient was counseled on the need for medication compliance and appropriate follow-up at mental health and also primary care for medical issues. Patient verbalized understanding and agreed. -Social work to arrange for transpoortation back home to his friends house and to ensure safety upon discharge and answer any questions/concerns. Social work also to arrange for patients follow up appointments with [facility] for psychiatric care along with follow up with primary care provider. -Patient counseled on abstaining from recreational drugs and marijuana and alcohol. Was informed/educated on the adverse effects on their physical and mental health. Patient verbally agreed and understood. Patient was offered substance abuse treatment however declined at this time. -Patient was instructed to return to the hospital or seek immediate medical care if their psychiatric or medical symptoms do worsen or reoccur. Allergies Allergy/AdvReac Type Severity Reaction Status Date / Time amoxicillin trihydrate Allergy Mild Rash/Hives Verified 09/29/22 01:22 [From Augmentin] ciprofloxacin [From Cipro] Allergy Mild Rash/Hives Verified 09/29/22 01:22 ciprofloxacin HCl Allergy Mild Rash/Hives Verified 09/29/22 01:22 [From Cipro] potassium clavulanate Allergy Mild Rash/Hives Verified 09/29/22 01:22 [From Augmentin] Sulfa (Sulfonamide Allergy Mild Rash/Hives Verified 09/29/22 01:22 Antibiotics) cefepime Allergy Rash/Hives Verified 09/29/22 01:22 hydrocodone [From Vicodin] Allergy Rash/Hives Verified 09/29/22 01:22 Penicillins Allergy Rash/Hives Verified 09/29/22 01:22 ibuprofen [From Motrin] AdvReac Mild Nausea & Verified 09/29/22 01:22 Vomiting & Diarrhea Laboratory Results WBC 6.6 k/uL (3.8-10.6) 09/30/22 07:10 RBC 5.22 m/uL (4.30-5.90) 09/30/22 07:10 Hgb 18.0 gm/dL (13.0-17.5) H 09/30/22 07:10 Hct 52.7 % (39.0-53.0) 09/30/22 07:10 MCV 100.8 fL (80.0-100.0) H 09/30/22 07:10 MCH 34.5 pg (25.0-35.0) 09/30/22 07:10 MCHC 34.2 g/dL (31.0-37.0) 09/30/22 07:10 RDW 12.5 % (11.5-15.5) 09/30/22 07:10 Plt Count 116 k/uL (150-450) L 09/30/22 07:10 MPV 8.8 09/30/22 07:10 Neutrophils % 73 % 09/30/22 07:10 Lymphocytes % 16 % 09/30/22 07:10 Monocytes % 5 % 09/30/22 07:10 Eosinophils % 4 % 09/30/22 07:10 Basophils % 1 % 09/30/22 07:10 Neutrophils # 4.8 k/uL (1.3-7.7) 09/30/22 07:10 Lymphocytes # 1.1 k/uL (1.0-4.8) 09/30/22 07:10 Monocytes # 0.3 k/uL (0-1.0) 09/30/22 07:10 Eosinophils # 0.3 k/uL (0-0.7) 09/30/22 07:10 Basophils # 0.0 k/uL (0-0.2) 09/30/22 07:10 Sodium 135 mmol/L (137-145) L 09/30/22 07:10 Potassium 3.8 mmol/L (3.5-5.1) 09/30/22 07:10 Chloride 104 mmol/L (98-107) 09/30/22 07:10 Carbon Dioxide 23 mmol/L (22-30) 09/30/22 07:10 Anion Gap 8 mmol/L 09/30/22 07:10 BUN 9 mg/dL (9-20) 09/30/22 07:10 Creatinine 0.63 mg/dL (0.66-1.25) L 09/30/22 07:10 Est GFR (CKD-EPI)AfAm >90 (>60 ml/min/1.73 sqM) 09/30/22 07:10 Est GFR (CKD-EPI)NonAf >90 (>60 ml/min/1.73 sqM) 09/30/22 07:10 Glucose 87 mg/dL (74-99) 09/30/22 07:[address] Glu mg/dL 111 mg/dL 09/30/22 07:10 Hemoglobin A1c 5.5 % (<=6.0) 09/30/22 07:10 Calcium 9.3 mg/dL (8.4-10.2) 09/30/22 07:10 Total Bilirubin 2.2 mg/dL (0.2-1.3) H 09/30/22 07:10 AST 125 U/L (17-59) H 09/30/22 07:10 ALT 63 U/L (4-49) H 09/30/22 07:10 Alkaline Phosphatase 84 U/L (38-126) 09/30/22 07:10 Total Protein 6.8 g/dL (6.3-8.2) 09/30/22 07:10 Albumin 3.7 g/dL (3.5-5.0) 09/30/22 07:10 TSH 2.330 mIU/L (0.465-4.680) 09/30/22 07:10 Urine Color Light Yellow 09/28/22 20:00 Urine Appearance Clear (Clear) 09/28/22 20:00 Urine pH 6.0 (5.0-8.0) 09/28/22 20:00 Ur Specific [place] 1.002 (1.001-1.035) 09/28/22 20:00 Urine Protein Negative (Negative) 09/28/22 20:00 Urine Glucose (UA) Negative (Negative) 09/28/22 20:00 Urine Ketones Negative (Negative) 09/28/22 20:00 Urine Blood Negative (Negative) 09/28/22 20:00 Urine Nitrite Negative (Negative) 09/28/22 20:00 Urine Bilirubin Negative (Negative) 09/28/22 20:00 Urine Urobilinogen <2.0 mg/dL (<2.0) 09/28/22 20:00 Ur Leukocyte Esterase Negative (Negative) 09/28/22 20:00 Urine Opiates Screen Negative (Negative) 09/28/22 20:00 Urine Methadone Screen Negative (Negative) 09/28/22 20:00 Ur Propoxyphene Screen Negative (Negative) 09/28/22 20:00 Urine Barbiturates Negative (Negative) 09/28/22 20:00 Ur Phencyclidine Scrn Negative (Negative) 09/28/22 20:00 Ur Amphetamine Screen Negative (Negative) 09/28/22 20:00 U Benzodiazepines Scrn Negative (Negative) 09/28/22 20:00 Urine Cocaine Screen Negative (Negative) 09/28/22 20:00 U Cannabinoids Screen Positive (Negative) A 09/28/22 20:00 Urine Alcohol Positive (Negative) A 09/28/22 20:00 Coronavirus (PCR) Not Detected (Not Detectd) 09/28/22 22:09 Vital Signs Temp 97.8 F 10/05/22 06:45 Pulse 56 L 10/05/22 06:45 Resp 16 10/05/22 06:45 BP 152/79 10/05/22 06:45 Pulse Ox 96 10/04/22 07:07 FiO2 Patient Condition at Discharge: Stable Plan - Discharge Summary Discharge Rx Participant: Yes New Discharge Prescriptions: New ARIPiprazole [Abilify] 5 mg PO DAILY 14 Days #14 tab DULoxetine HCL [Cymbalta] 60 mg PO BID 14 Days #28 cap Nicotine 14Mg/24Hr Patch [Habitrol] 1 patch TRANSDERM DAILY 14 Days #14 patch amLODIPine [Norvasc] 2.5 mg PO DAILY 14 Days #14 tab Aspirin 81 mg PO DAILY 14 Days #14 tab traZODone HCL [Desyrel] 200 mg PO HS 14 Days #28 tab hydrOXYzine pamoate [Vistaril] 50 mg PO DAILY PRN 14 Days #28 cap PRN Reason: Agitation Or Acute Anxiety Discharge Medication List ARIPiprazole [Abilify] 5 mg PO DAILY 14 Days #14 tab 10/04/22 [Rx] Aspirin 81 mg PO DAILY 14 Days #14 tab 10/04/22 [Rx] DULoxetine HCL [Cymbalta] 60 mg PO BID 14 Days #28 cap 10/04/22 [Rx] Nicotine 14Mg/24Hr Patch [Habitrol] 1 patch TRANSDERM DAILY 14 Days #14 patch 10/04/22 [Rx] amLODIPine [Norvasc] 2.5 mg PO DAILY 14 Days #14 tab 10/04/22 [Rx] hydrOXYzine pamoate [Vistaril] 50 mg PO DAILY PRN 14 Days #28 cap 10/04/22 [Rx] traZODone HCL [Desyrel] 200 mg PO HS 14 Days #28 tab 10/04/22 [Rx] Follow up Appointment(s)/Referral(s): Ana Renteria MD [Primary Care Provider] - 1-2 days Activity/Diet/Wound Care/Special Instructions: Avoid the use of street drugs and alcohol. Take all medications as prescribed. When you are in need of refills on your medications, please contact your medical provider and/or outpatient psychiatrist to have this done. Please go to scheduled outpatient appointments for aftercare treatment. If symptoms return or become worse, call the crisis line at and/or go to the nearest emergency room for evaluation. Discharge Disposition: HOME SELF-CARE
== END 2022-10-05 13:45 | disposition home or self-care (01) | DRG 881 ==
LOC: EC 15:51 → 3MHU 22:51
PROVIDERS: ADMIT Psychiatry & Neurology Psychiatry; ATTEND Psychiatry & Neurology Psychiatry
DX: F32.A Depression, unspecified (principal); R45.851 Suicidal ideations; F10.239 Alcohol dependence with withdrawal, unspecified; F10.229 Alcohol dependence with intoxication, unspecified; F12.10 Cannabis abuse, uncomplicated; J44.9 Chronic obstructive pulmonary disease, unspecified; Z20.822 Contact with and (suspected) exposure to COVID-19; I10 Essential (primary) hypertension; M19.90 Unspecified osteoarthritis, unspecified site; G47.00 Insomnia, unspecified; F41.9 Anxiety disorder, unspecified; F43.10 Post-traumatic stress disorder, unspecified; F17.210 Nicotine dependence, cigarettes, uncomplicated; Z91.199 Patient's noncompliance with other medical treatment and regimen due to unspecified reason; Z91.148 Patient's other noncompliance with medication regimen for other reason; Z79.899 Other long term (current) drug therapy; Z79.82 Long term (current) use of aspirin; Z76.5 Malingerer [conscious simulation]; Z59.00 Homelessness unspecified; I25.2 Old myocardial infarction; Z88.1 Allergy status to other antibiotic agents; Z88.0 Allergy status to penicillin; Z88.5 Allergy status to narcotic agent; Z88.6 Allergy status to analgesic agent; Z88.2 Allergy status to sulfonamides; Z88.8 Allergy status to other drugs, medicaments and biological substances; Z87.01 Personal history of pneumonia (recurrent); Z87.828 Personal history of other (healed) physical injury and trauma; Z86.14 Personal history of Methicillin resistant Staphylococcus aureus infection; Z63.5 Disruption of family by separation and divorce
CPT/HCPCS: 80053; 80306; 81003; 82075; 83036; 84443; 85025; 87635; 99285

== ENCOUNTER 2023-09-02 10:42 | Observation (INO) | payer MEDICARE, OTHER ==
[2023-09-02 11:35] LABS: Basophils # (A) 0.1 k/uL (0-0.2); Basophils % (A) 1 %; Eosinophils # (A) 0.2 k/uL (0-0.7); Eosinophils % (A) 2 %; Lymphocytes # (A) 1.3 k/uL (1.0-4.8); Lymphocytes % (A) 15 %; MCH 33.9 pg (25.0-35.0); MCHC 32.5 g/dL (31.0-37.0); MCV 104.5 fL (80.0-100.0); Macrocytosis Slight; Mean Platelet Volume 8.2; Monocytes # (A) 0.6 k/uL (0-1.0); Monocytes % (A) 7 %; Neutrophils # (A) 6.8 k/uL (1.3-7.7); Neutrophils % (A) 75 %; Platelet Count 158 k/uL (150-450); RBC 5.66 m/uL (4.30-5.90); RDW 11.8 % (11.5-15.5); WBC 9.1 k/uL (3.8-10.6)
[2023-09-02 11:42] LABS: HGB 19.2 gm/dL (13.0-17.5)
[2023-09-02 11:43] LABS: HCT 59.2 % (39.0-53.0)
[2023-09-02 11:53] LABS: ALT 88 U/L (4-49); AST 178 U/L (17-59); African American GFR (CKD) >90 (>60 ml/min/1.73 sqM); Albumin 4.4 g/dL (3.5-5.0); Alkaline Phosphatase 87 U/L (38-126); Anion Gap 17 mmol/L; Blood Urea Nitrogen 4 mg/dL (9-20); Calcium 9.7 mg/dL (8.4-10.2); Carbon Dioxide 18 mmol/L (22-30); Chloride 100 mmol/L (98-107); Glucose 82 mg/dL (74-99); Lipase 163 U/L (23-300); Magnesium 1.4 mg/dL (1.6-2.3); Non-African American GFR(CKD) >90 (>60 ml/min/1.73 sqM); Potassium 3.6 mmol/L (3.5-5.1); Sodium 135 mmol/L (137-145); Total Bilirubin 1.5 mg/dL (0.2-1.3); Total Protein 7.6 g/dL (6.3-8.2)
[2023-09-02 11:57] LABS: NT-Pro-B-Type Natriuretic Pept 92 pg/mL
[2023-09-02 12:01] LABS: Alcohol 96 mg/dL
--- NOTE | 2023-09-02 12:19 | XR ---
EXAMINATION TYPE: XR chest 2V DATE OF EXAM: 09/02/2023 COMPARISON: 09/20/2020 INDICATION: Chest pain TECHNIQUE: Frontal and lateral views of the chest are obtained. FINDINGS: The heart size is normal. The pulmonary vasculature is normal. The lungs are clear. IMPRESSION: 1. No acute pulmonary process.
[2023-09-02 13:04] LABS: INR 1.1 (<1.2); Prothrombin Time 11.7 sec (10.0-12.5)
[2023-09-02 13:06] LABS: Partial Thromboplastin Time 21.7 sec (22.0-30.0)
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
[2023-09-02] MEDS: MAGNESIUM SULFATE-D5W PMX 1 GM in DEXTROSE/WATER 1 100ML.BAG IVPB SCH (13:53)
[2023-09-02] MEDS ORDERED: NALOXONE 0.4 MG/ML 1 ML VIAL IV PRN (13:54)
[2023-09-02] MEDS: NITROGLYCERIN OINT 1 INCH/GM PACKET TOPICAL STA (14:54)
[2023-09-02] MEDS: FAMOTIDINE 20 MG/2 ML VIAL IV STA (17:33)
[2023-09-02] MEDS: ACETAMINOPHEN TAB 325 MG TAB PO PRN (21:14)
[2023-09-03] MEDS: PANTOPRAZOLE 40 MG/10 ML VIAL IVP SCH (09:00)
[2023-09-03 09:30] LABS: Basophils # (A) 0.05 X 10*3/uL (0.00-0.10); Basophils % (A) 0.7 %; Eosinophils # (A) 0.12 X 10*3/uL (0.04-0.35); Eosinophils % (A) 1.6 %; HCT 47.1 % (39.6-50.0); HGB 16.8 g/dL (13.0-17.0); Lymphocytes # (A) 1.24 X 10*3/uL (0.90-5.00); Lymphocytes % (A) 16.8 %; MCH 34.4 pg (27.0-32.0); MCHC 35.7 g/dL (32.0-37.0); MCV 96.5 FL (80.0-97.0); Mean Platelet Volume 10.4 FL (9.5-12.2); Monocytes # (A) 0.93 X 10*3/uL (0.20-1.00); Monocytes % (A) 12.6 %; NRBC Per 100 WBC 0 X 10*3/uL (0.00-0.01); Neutrophils # (A) 5.01 X 10*3/uL (1.80-7.70); Neutrophils % (A) 67.9 %; Platelet Count 155 X 10*3/uL (140-440); RBC 4.88 X 10*6/uL (4.40-5.60); RDW 11.7 % (11.5-14.5); WBC 7.38 X 10*3/uL (4.50-10.00)
[2023-09-03 10:40] LABS: BUN/Creat Ratio 13.17 Ratio (12.00-20.00); Blood Urea Nitrogen 7.9 mg/dL (9.0-27.0); Chloride 98 mmol/L (96-109); Glucose 98 mg/dL (70-110); Sodium 134 mmol/L (135-145)
[2023-09-03] MEDS ORDERED: REGADENOSON 0.4 MG/5 ML SYRINGE IV PRN (12:42)
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
--- NOTE | 2023-09-03 14:09 | P.PN ---
Subjective Progress Note Date: 09/03/23 67-year-old male with past medical history of COPD/asthma, high blood pressure, [place] who presents emergency department stating that he had chest pain and shortness of breath that started at 1 AM. Since states that he has a chest pressure which radiates to his back. Has associated shortness of breath. No fevers, chills or cough. Patient admits that he smokes and has been drinking this morning. He told EMS that he wants to commit suicide because of his ongoing medical problems. States he has the patient had routes of hurting himself such as overdosing, shooting himself or hanging himself. He has not had an appetite in 2 weeks. Admits to generalized weakness. He has not been taking his medications as directed because of his hopelessness. No alleviating, precipitating or modifying factors. Blood work completed in ED reveals a WBC of 9.1, hemoglobin of 19.2 and platelet count of 158, sodium 135, potassium 3.6, BUNs/creatinine of 4/0.46, troponin of less than 0.012; serum alcohol level of 96 -- Patient has been evaluated by cardiology and is recommended an echocardiogram to evaluate left heart function; Lexiscan stress test is ordered to rule out reversible ischemia -- Patient tentatively scheduled for nuclear stress test on Monday --Await psych evaluation and recommendations Objective - Vital Signs Vital signs: Vital Signs Temp 98.1 F 09/03/23 07:00 Pulse 67 09/03/23 07:00 Resp 16 09/03/23 07:00 BP 160/81 09/03/23 07:00 Pulse Ox 97 09/03/23 07:00 FiO2 Intake & Output 09/02/23 09/03/23 09/03/23 18:59 06:59 18:59 Weight 72.575 kg 72.575 kg Other: Voiding Method Toilet # Voids 2 - Exam General appearance: Present: average body habitus, cooperative, no acute distress Eyes: Present: anicteric sclerae, EOMI, PERRLA, normal appearance ENT: Present: hearing grossly normal, normal oropharynx Neck: Present: normal ROM. Absent: lymphadenopathy, rigidity, thyromegaly Thyroid: bilateral: normal size, negative: enlarged, nodule Respiratory: bilateral: CTA, negative: rales, rhonchi, wheezing Cardiovascular: regular: S1, S2 Gastrointestinal: normal bowel sounds, soft. Absent: distended, organomegaly, tenderness Genitourinary Comment(s): deferred Integumentary: Present: normal turgor. Absent: jaundiced, rash, ulcer Neurologic: Present: CNII-XII intact. Absent: focal deficits Musculoskeletal: Present: gait normal, strength equal bilaterally - Labs CBC & Chem 7: 09/03/23 05:39 09/03/23 05:39 Labs: Abnormal Lab Results - Last 24 Hours (Table) 09/02/23 09/03/23 09/03/23 Range/Units 12:20 05:39 05:39 MCH 34.4 H (27.0-32.0) pg APTT 21.7 L (22.0-30.0) sec Sodium 134 L (135-145) mmol/L Anion Gap 14.00 H (4.00-12.00) mmol/L BUN 7.9 L (9.0-27.0) mg/dL Assessment and Plan Assessment: 1. Chest pain; we will monitor EKG and trend troponin; recommend 2D echo -- Cardiology is consulted for further evaluation 2. Suicidal ideation; patient has a sitter; psych is consulted 3. Polycythemia; possibly hemoconcentration; patient will be placed on IV flui ds with plans to repeat lab work for follow-up 4. Electrolyte imbalance/hypomagnesemia 5. Elevated liver enzymes; likely related to chronic alcohol use; we will monitor liver enzymes periodically 6. Asthma/COPD; not taking any inhalers 7. Hypertension; currently not on any antihypertensive therapy DVT prophylaxis; SCDs/subcu heparin CODE STATUS; full code
[2023-09-03] MEDS: ONDANSETRON 4 MG/2 ML VIAL IVP PRN (16:44)
[2023-09-03] MEDS: traZODone HCL 100 MG TAB PO SCH (19:56)
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
[2023-09-04 09:21] LABS: Basophils # (A) 0.04 X 10*3/uL (0.00-0.10); Basophils % (A) 0.5 %; Eosinophils # (A) 0.12 X 10*3/uL (0.04-0.35); Eosinophils % (A) 1.5 %; HCT 49.9 % (39.6-50.0); HGB 17.3 g/dL (13.0-17.0); Lymphocytes # (A) 1.56 X 10*3/uL (0.90-5.00); MCH 34.3 pg (27.0-32.0); MCHC 34.7 g/dL (32.0-37.0); Mean Platelet Volume 10.9 FL (9.5-12.2); Monocytes # (A) 1.01 X 10*3/uL (0.20-1.00); Monocytes % (A) 12.9 %; NRBC Per 100 WBC 0 X 10*3/uL (0.00-0.01); Neutrophils # (A) 5.05 X 10*3/uL (1.80-7.70); Neutrophils % (A) 64.8 %; Platelet Count 173 X 10*3/uL (140-440); RBC 5.04 X 10*6/uL (4.40-5.60); RDW 11.8 % (11.5-14.5)
[2023-09-04 11:57] LABS: Albumin/Globulin Ratio 1.48 Ratio (1.60-3.17); Bilirubin, Conjugated 0.35 mg/dL (0.20-0.40); Bilirubin,Unconjugated 1.45 mg/dL (0.20-1.00); Globulin 2.7 g/dL (1.6-3.3); Total Bilirubin 1.8 mg/dL (0.3-1.2); Total Protein 6.7 g/dL (6.2-8.2)
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
--- NOTE | 2023-09-04 19:40 | PN ---
PROGRESS NOTE DATE OF SERVICE: 09/04/2023 SUBJECTIVE: This is a 67-year-old gentleman admitted with chest pain and suicidal ideation, being closely monitored. No chest pain. No palpitation. Cardiac workup is underway. OBJECTIVE: VITAL SIGNS: Pulse 76, blood pressure 143/80, and respirations 17. CHEST: Clear. CARDIOVASCULAR: S1 and S2. ABDOMEN: Soft. NERVOUS SYSTEM: Nonfocal. LABORATORY DATA: Reviewed. ASSESSMENT: 1. Chest pain for evaluation. 2. Suicidal ideation. 3. Polycythemia. 4. Electrolyte imbalance. 5. Asthma and chronic obstructive pulmonary disease. RECOMMENDATIONS: Recommend to continue current medical management and symptomatic treatment. Otherwise, increase ambulation; cardiac workup; and once the patient is stable, the patient may be transferred to Psych floor. Further recommendations to follow. MMYUDYL / IJN: [id number] /
[2023-09-04] MEDS: MELATONIN 3 MG TABLET PO PRN (22:50)
[2023-09-05] MEDS ORDERED: CAFFEINE CITRATE 60 MG/3 ML VIAL IV PRN (06:00)
[2023-09-05] MEDS ORDERED: REGADENOSON 0.4 MG/5 ML SYRINGE IV PRN (06:00)
[2023-09-05] MEDS ORDERED: AMINOPHYLLINE 500 MG/20 ML VIAL IV PRN (06:00)
[2023-09-05 10:43] LABS: Basophils # (A) 0.05 X 10*3/uL (0.00-0.10); Basophils % (A) 0.8 %; Eosinophils # (A) 0.17 X 10*3/uL (0.04-0.35); Eosinophils % (A) 2.6 %; HGB 16.2 g/dL (13.0-17.0); Lymphocytes % (A) 23.1 %; MCH 34.5 pg (27.0-32.0); MCHC 33.8 g/dL (32.0-37.0); MCV 102.3 FL (80.0-97.0); Mean Platelet Volume 10.7 FL (9.5-12.2); Monocytes # (A) 0.95 X 10*3/uL (0.20-1.00); Monocytes % (A) 14.7 %; NRBC Per 100 WBC 0 X 10*3/uL (0.00-0.01); Neutrophils # (A) 3.78 X 10*3/uL (1.80-7.70); Neutrophils % (A) 58.3 %; Platelet Count 165 X 10*3/uL (140-440); RBC 4.69 X 10*6/uL (4.40-5.60); RDW 11.9 % (11.5-14.5); WBC 6.48 X 10*3/uL (4.50-10.00)
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
[2023-09-05 11:33] LABS: BUN/Creat Ratio 15.67 Ratio (12.00-20.00); Blood Urea Nitrogen 9.4 mg/dL (9.0-27.0); Calcium 9.3 mg/dL (8.7-10.3); Carbon Dioxide 22.1 mmol/L (21.6-31.8); Chloride 100 mmol/L (96-109); Glucose 94 mg/dL (70-110); Potassium 4.1 mmol/L (3.5-5.5); Sodium 136 mmol/L (135-145)
[2023-09-05] MEDS: LOSARTAN 25 MG TAB PO SCH (12:08)
--- NOTE | 2023-09-05 12:35 | NM ---
EXAMINATION TYPE: NM stress lexiscan cardiolite DATE OF EXAM: 09/05/2023 COMPARISON: NONE CLINICAL INDICATION: Male, 67 years old with history of chest pain; TECHNIQUE: After the intravenous administration of 10 mCi Tc 99m Sestamibi - Cardiolite resting SPEC T images acquired 65 minutes post injection. The patient received 0.4mg Lexiscan, 25.8 mCi Tc 99m Sestamibi - Stress images obtained [address] injection FINDINGS: Review of stress and rest SPECT images demonstrates no distinct perfusion abnormality. Gated analysi s shows normal wall motion with an estimated left ventricular ejection fraction of 59 %. IMPRESSION: No scintigraphic evidence for reversible ischemia.
--- NOTE | 2023-09-05 13:59 | P.DS ---
Providers Date of admission: 09/02/23 13:54 Expected date of discharge: 09/05/23 Attending physician: Len Andrew MD Consults: 09/02/23 13:54 Consult Physician Urgent Consulting Provider: Smitha Rehman Consult Reason/Comments: suicidal ideations Do you want consulting provider notified?: Yes Consult Physician Urgent Consulting Provider: [facility] Consult Reason/Comments: acute chest pain Do you want consulting provider notified?: Yes Primary care physician: Ana Renteria Hospital Course: Final diagnosis Chest pain, ruled out ACS, stress test was negative Depression with suicidal ideation Polycythemia EtOH use Asthma and COPD history, stable, not in exacerbation Hypertension history Previous myocardial infarction History of anxiety/depression/PTSD Continued ongoing nicotine dependence Noncompliance with medications and follow-up GI prophylaxis DVT prophylaxis Full code Discharge disposition Patient is being discharged in a stable condition with guarded prognosis to [facility] for further psychiatric evaluation. Patient will follow-up with Dr. Eliseo Hanson in the outpatient setting upon discharge. Patient is to continue with medications as prescribed and outpatient follow-up with cardiology as scheduled. Total time taken is greater than 35 minutes. Hospital course This is a 67-year-old male who was recently admitted with chest pain along with suicidal ideations being closely monitored with cardiology following. Patient continued to report chest pain and underwent stress test which was negative for reducible ischemia and has been started on blood pressure management. Recommend outpatient follow-up with cardiology in the next 1 to 2 weeks. Patient also reporting some suicidal ideations and was evaluated by psychiatry meeting [facility] for inpatient and will be transferred there for further psychiatric evaluation and care. Please refer to cardiology note for further HPI. Patient is medically stable for transfer to [facility]. Currently no reports of chest pain, shortness of breath, or palpitations. Patient is afebrile. No reports of nausea or vomiting and patient is tolerating diet. Patient will be transferred to [facility]. once a bed is available. Guarded prognosis and high risk for readmissions given patient's noncompliance and continued alcohol use. Physical exam: Gen: This is a 67-year-old male who is awake, alert and oriented x 3, well- developed, well-nourished, elderly appearing HEENT: Head is atraumatic, normocephalic. Pupils equal, round. Sclerae is anicteric. NECK: Supple. No JVD. No lymphadenopathy. No thyromegaly. LUNGS: Diminished breath sounds bilaterally otherwise clear to auscultation. No wheezes or rhonchi. No intercostal retractions. HEART: Regular rate and rhythm. No murmur. ABDOMEN: Soft. Bowel sounds are present. No masses. No tenderness. EXTREMITIES: No pedal edema. No calf tenderness. NEUROLOGICAL: Patient is awake, alert and oriented x3. Cranial nerves 2 through 12 are grossly intact. Please refer to medication reconciliation sheet for a list of medications. The impression and plan of care has been dictated by Carol Toney, Nurse Practitioner as directed. Dr. Valentin MD I have performed a history and examination and MDM of this patient, discussed the same with the dictator, and agree with the dictator's assessment and plan as written ,documented as a scribe. Based on total visit time, I have performed more than 50% of the visit. Patient Condition at Discharge: Stable Plan - Discharge Summary New Discharge Prescriptions: New Losartan [Cozaar] 25 mg PO DAILY tab traZODone HCL [Desyrel] 100 mg PO HS tab Melatonin 6 mg PO HS PRN tab PRN Reason: Insomnia Calcium Carbonate [Tums] 500 mg PO QID PRN tab PRN Reason: Heartburn Acetaminophen Tab [Tylenol] 650 mg PO Q6HR PRN tab PRN Reason: Fever And/ Or Pain Discharge Medication List Acetaminophen Tab [Tylenol] 650 mg PO Q6HR PRN tab 09/05/23 [Rx] Calcium Carbonate [Tums] 500 mg PO QID PRN tab 09/05/23 [Rx] Losartan [Cozaar] 25 mg PO DAILY tab 09/05/23 [Rx] Melatonin 6 mg PO HS PRN tab 09/05/23 [Rx] traZODone HCL [Desyrel] 100 mg PO HS tab 09/05/23 [Rx] Follow up Appointment(s)/Referral(s): Ana Renteria MD [Primary Care Provider] - 1-2 days Activity/Diet/Wound Care/Special Instructions: Patient is medically stable for transfer to psych Patient to follow-up with primary care provider on discharge Follow-up with cardiology outpatient Follow-up with [facility] outpatient Continue taking medications as prescribed Avoid alcohol and tobacco use Discharge Disposition: TRANSFER TO PSYCH HOSP/UNIT
[2023-09-05] MEDS: CALCIUM CARBONATE 500 MG CHEWABLE PO PRN (14:54)
--- NOTE | 2023-09-05 18:09 | CA ---
Transthoracic Echo Report Name: Ajay Maharaj Age: 67 Gender: M : 1955 Exam Date: 09/05/2023 11:13 Exam Location: [facility] Ht (in): 72 Wt (lb): 160 Ordering Physician: Destiny Ibrahim Attending/Referring Phys: Surveillance Technician Mariely Gupta RDCS Procedure CPT: Indications: Chest pain, SOB Cardiac Hx: Technical Quality: Fair Contrast 1: Total Dose (mL): Contrast 2: Total Dose (mL): MEASUREMENTS (Male / Female) Normal Values 2D ECHO LV Diastolic Diameter PLAX 3.5 cm 4.2 - 5.9 / 3.9 - 5.3 cm LV Systolic Diameter PLAX 2.4 cm IVS Diastolic Thickness 1.6 cm 0.6 - 1.0 / 0.6 - 0.9 cm LVPW Diastolic Thickness 1.3 cm 0.6 - 1.0 / 0.6 - 0.9 cm LV Relative Wall Thickness 0.8 RV Internal Dim ED PLAX 4.0 cm LVOT Diameter 2.5 cm LA Systolic Diameter LX 3.4 cm 3.0 - 4.0 / 2.7 - 3.8 cm LA Volume 40.7 cm??? 18 - 58 / 22 - 52 cm??? LA Volume Index 21.2 cm???/m??? 16 - 28 cm???/m??? M-MODE Aortic Root Diameter MM 4.0 cm MV E Point Septal Separation 1.3 cm AV Cusp Separation MM 2.0 cm DOPPLER AV Peak Velocity 81.8 cm/s AV Peak Gradient 2.7 mmHg AI Peak Velocity 383.7 cm/s AI Peak Gradient 58.9 mmHg AI Pressure Half Time 1098.3 ms MV Area PHT 2.6 cm??? Mitral E Point Velocity 61.0 cm/s Mitral A Point Velocity 69.8 cm/s Mitral E to A Ratio 0.9 MV Deceleration Time 289.0 ms TR Peak Velocity 203.2 cm/s TR Peak Gradient 16.5 mmHg Right Ventricular Systolic Press 21.2 mmHg FINDINGS Left Ventricle Left ventricular ejection fraction is estimated at 50-55 %. Small left ventricular cavity. Moderately increased septal wall thickness. Right Ventricle Severe right ventricular dilatation. Right ventricular systolic pressure within normal limits. Right Atrium Normal right atrial size. No right atrial thrombus or mass seen. Left Atrium Normal left atrial size. No left atrial thrombus or mass present. Mitral Valve Structurally normal mitral valve. No mitral stenosis, regurgitation or prolapse. Aortic Valve Trileaflet aortic valve. Aortic valve sclerosis. Mild aortic regurgitation. Tricuspid Valve Structurally normal tricuspid valve. Mild tricuspid regurgitation. Pulmonic Valve Structurally normal pulmonic valve. No pulmonic regurgitation. Pericardium No pericardial effusion. Aorta Mild aortic dilatation at the level of the sinuses of valsalva 40 mm CONCLUSIONS Left ventricular ejection fraction is estimated at 50-55 %. Moderately increased septal wall thickness. No significant regional wall motion normality RV appears dilated Mild aortic regurgitation Dilated aortic root with sinuses of Valsalva measuring at 4 cm Previewed by: Dr Chavez Reyes (Electronically Signed) Final Date: 05 Sep 2023 18:08
--- NOTE | 2023-09-05 18:18 | CA ---
Lexiscan Nuclear Stress Test Report Name: Ajay Maharaj Exam Date: 09/05/2023 10:02 Exam Location: [place] [facility] Ht (in): 72 Wt (lb): 160 BSA: 1.94 Ordering Phys: Destiny Ibrahim Referring Phys: NAWAF Technologist: Savana Peña RDCS Age: 67 Gender: M : 1955 Procedure CPT: Indications: Reflex order-Stress test ICD-10 Codes: Patient History: CP, PALP, HTN, TOB, [place], COPD, ASTHMA Medications: SEE CHART Meds past 24 hrs: Pretest Chest Pain: STRESS TEST Lexiscan Protocol Exercise Duration (min:sec): 00:[address] Depressions (mm): Angina Score: Mosqueda Score: Resting HR (bpm): 72 Peak HR (bpm): 92 Resting BP (mmHg): 164 / 89 Peak BP (mmHg): 158 / 91 MPHR: 155 Target HR: 132 % MPHR: 59 METS: 1.0 Total Dose: Peak Dose: Atropine: Double Product: 14248 BP Response: Stress Termination: END OF DOSE Stress Symptoms: No chest pain or symptoms Stress Summary: ECG ANALYSIS Resting ECG: Stress ECG: CONCLUSIONS RESTING EKG: Sinus bradycardia, Heart rate 57 BPM Patient recieved IV infusion of Lexiscan 0.4mg and at peak infusion STRESS EKG showed: [No significant ST-T wave changes diagnostic for ischemia by ST segment analysis] ARRYTHMIAS: [No ectopic rhythms or sustained arrythmias] CONCLUSION: 1. Normal hemodynamic and clinical response to Lexiscan infusion. 2. Non-ischemic EKG response to lexiscan infusion Please refer to the nuclear imaging portion of this stress test for complete interpretation of the study. Dr Chavez Reyes (Electronically Signed) Final Date: 05 Sep 2023 18:17
[2023-09-05 20:35] VITALS: BP 146/80; PULSE 72; RESP 17; TEMP 98
== END 2023-09-05 22:37 ==
LOC: EC 10:42 → 6NMEDSUR 13:54
PROVIDERS: ADMIT Internal Medicine; ATTEND Internal Medicine
DX: R07.89 Other chest pain (principal); R45.851 Suicidal ideations; J44.9 Chronic obstructive pulmonary disease, unspecified; I10 Essential (primary) hypertension; I25.2 Old myocardial infarction; M19.90 Unspecified osteoarthritis, unspecified site; F43.10 Post-traumatic stress disorder, unspecified; Z82.49 Family history of ischemic heart disease and other diseases of the circulatory system; F17.210 Nicotine dependence, cigarettes, uncomplicated; D75.1 Secondary polycythemia; E83.42 Hypomagnesemia; F10.20 Alcohol dependence, uncomplicated; F41.8 Other specified anxiety disorders; Z91.148 Patient's other noncompliance with medication regimen for other reason; Z91.199 Patient's noncompliance with other medical treatment and regimen due to unspecified reason; Y90.4 Blood alcohol level of 80-99 mg/100 ml
CPT/HCPCS: 96376 ×3; 96365; 96366; 96375 ×2; 82075; 99285; 36415; 93005; 93017; 93306; 83880; 80053; 80048 ×2; 80076; 83690; 83735; 84484; 85025 ×4; 85610; 85730; 87635; 71046; 78452; G0378 ×4; G0480; A9500; J2405; J3490; J3475; J2785; C9113 ×3; 80320

== ENCOUNTER 2023-09-05 22:11 | Inpatient (IN) | payer MEDICARE, MEDICAID ==
[2023-09-05] MEDS ORDERED: OLANZapine 10 MG VIAL IM PRN (22:26)
[2023-09-06] MEDS: ACETAMINOPHEN TAB 325 MG TAB PO PRN (07:01)
[2023-09-06] MEDS: LOSARTAN 25 MG TAB PO SCH (08:52)
[2023-09-06] MEDS: IBUPROFEN 600 MG TAB PO PRN (08:54)
[2023-09-06] MEDS: NICOTINE 14MG/24HR PATCH TRANSDERM SCH (09:03)
[2023-09-06] MEDS: CALCIUM CARBONATE 500 MG CHEWABLE PO PRN (09:37)
[2023-09-06] MEDS: MAGNESIUM HYDROXIDE 2,400 MG/30 ML CUP PO PRN (09:38)
[2023-09-06] MEDS: hydrOXYzine HCL 25 MG TAB PO PRN (14:03)
[2023-09-06] MEDS ORDERED: IPRATROPIUM-ALBUTEROL 3 ML NEB INHALATION PRN (14:29)
[2023-09-06] MEDS ORDERED: SYMBICORT 160-4.5 MCG INHALER INHALATION SCH (14:30)
[2023-09-06] MEDS ORDERED: ALBUTEROL INHALER 60 PUFF/8 GM INHALER (MHU) INHALATION PRN (14:51)
[2023-09-06] MEDS ORDERED: TIOTROPIUM 2.5 MCG INHALER INHALATION SCH (15:00)
[2023-09-06] MEDS: TIOTROPIUM 2.5 MCG INHALER (MHU) INHALATION SCH (15:15)
[2023-09-06] MEDS: traMADol 50 MG TAB PO PRN (15:18)
[2023-09-06] MEDS: busPIRone HCl 10 MG TAB PO SCH (15:19)
[2023-09-06] MEDS: SYMBICORT 160-4.5 MCG INHALER (MHU) INHALATION SCH (16:05)
--- NOTE | 2023-09-06 16:11 | P.HP ---
Psychiatric H&P - . H&P Date: 09/06/23 History & Physical: Allergies Allergy/AdvReac Type Severity Reaction Status Date / Time amoxicillin trihydrate Allergy Mild Rash/Hives Verified 09/05/23 22:39 [From Augmentin] ciprofloxacin [From Cipro] Allergy Mild Rash/Hives Verified 09/05/23 22:39 ciprofloxacin HCl Allergy Mild Rash/Hives Verified 09/05/23 22:39 [From Cipro] potassium clavulanate Allergy Mild Rash/Hives Verified 09/05/23 22:39 [From Augmentin] Sulfa (Sulfonamide Allergy Mild Rash/Hives Verified 09/05/23 22:39 Antibiotics) cefepime Allergy Rash/Hives Verified 09/05/23 22:39 hydrocodone [From Vicodin] Allergy Rash/Hives Verified 09/05/23 22:39 mayonnaise Allergy Nausea & Verified 09/05/23 22:39 Vomiting, rash Penicillins Allergy Rash/Hives Verified 09/05/23 22:39 ibuprofen [From Motrin] AdvReac Mild Nausea & Verified 09/05/23 22:39 Vomiting & Diarrhea tartar sauce Allergy Nausea & Uncoded 09/02/23 14:01 Vomiting, rash Vital Signs Temp 97.5 F L 09/06/23 00:10 Pulse 113 H 09/06/23 08:54 Resp 15 09/06/23 00:10 BP 120/77 09/06/23 08:54 Pulse Ox 97 09/06/23 00:10 FiO2 Intake & Output 09/05/23 09/06/23 09/06/23 18:59 06:59 18:59 Weight 80.541 kg 09/06/23 16:09 Psychiatric Evaluation IDENTIFYING DATA: This patient is a 67 year old male living with a friend in [place]. HISTORY OF PRESENT ILLNESS: The patient presented to the hospital brought by EMS with complains of suicidality by hanging himself, or shooting himself. He also complaint of chest pain, shortness of breath. After initial work-up he was admitted to medical floor for further management. After stabilization, he was transferred to this unit for psychiatric management. During this evaluation, the patient reported depressed mood, anhedonia, guilt, low energy, low concentration, low appetite, psychomotor slowing, feeling worthless, hopeless and thoughts of not living anymore. He not taking any psychiatric medications at present PAST PSYCHIATRIC HISTORY: Patient has h/o of psychiatric treatment since age 29. He has had 7-10 admissions to psychiatric hospitals. His last admission was in April, to this hospital. He has had sporadic out-pt treatment. He has been to [facility] was a year ago. The patient noted that after discharge from here he never sought out-pt treatment. He reports not taking any psychiatric medications. His was discharged Abilify 5 mg daily, Cymbalta 60 mg BID, Vistaril 50 mg daily PRN and Trazodone 200 mg QHS. Leading questions: The patient admitted to Depression and Anxiety. The patient has passive wishes. Denied HI. Denied symptoms consistent with psychosis Drugs and alcohol history: The patient admitted to drinking too much. He smokes Marijuana three times a week. Tobacco use: 1-2 packs a day. Past Medical history: COPD, HTN, [place], TBI Family History of Psychiatric Disorder: The patient denied. No h/o suicide or homicide. Social History and Family History: The patient was born in [place] and raised in [place], [place]. He has degree in [employer]. 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 He was for 6 years. He has one daughter. OTC: None. Allergies: PNC for details ref. to EMR. Objective: MSE: Alert and attentive. Orientation times three Dressed and Groomed: Appropriately. Pleasant and cooperative. Psychomotor Activity: Normal. Speech: Normal in tone, quality, and quantity. Mood: Depressed. Affect: sad and anxious. SI or HI: None. The patient currently has passive wish but sometimes also thinks of suicide with no plans. Perceptual disturbance: None. Thought Content: No paranoia or other delusional thinking noted. Thought Process: Normal. Cognition: Intact Judgment and Insight: Poor. AIMS: Normal Labs: Available labs reviewed. Diagnosis: Major depressive disorder, recurrent, severe Alcohol Dependence Nicotine Dependence. Plan and Recommendations: Cymbalta 30 mg po daily, Trazodone 100 mg po qhs, . Monitor MS and side effects of medications and adjust medications accordingly. Provide supportive psychotherapy and psychoeducation. The patient provided psychoeducation. Te patient provided with substance abuse counselling and advised to attend AA/NA Smoke cessation therapy. The patient to attend muñiz [facility]. Medication Consent with explanation of risk/benefits and side effects: Explained and obtained.
[2023-09-06] MEDS ORDERED: IPRATROPIUM-ALBUTEROL 3 ML NEB INHALATION SCH (20:00)
[2023-09-06] MEDS: ALBUTEROL INHALER 60 PUFF/8 GM INHALER (MHU) INHALATION SCH (20:13)
[2023-09-06] MEDS: OLANZapine 5 MG TAB PO PRN (20:21)
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
[2023-09-06] MEDS: MELATONIN 3 MG TABLET PO PRN (22:16)
[2023-09-07] MEDS: DULoxetine HCL 30 MG CAPSULE.DR PO SCH (08:46)
--- NOTE | 2023-09-07 13:44 | P.PN ---
Progress Note - Text Progress Note Date: 09/07/23 Follow-up Mediation Review Chief Complaint: My eyes are dry and hurting Subjective: The patient noted that his eyes are dry. He requested for some eye drops. The patient noted that his back hurts. He requested for pain medications. The patient noted that Ultram given to him is helping leg pain but his back is hurting too. The patient was gently redirected that the same medication will address both the pain. He noted some improvement in his mood but has wish and suicidal thoughts off and on. The patient has been attending the groups. The participation is limited. The interaction with staff and peers is good. The patient is compliant with treatment recommendations. Leading questions: The patient admitted to Depression and Anxiety. Denied SI or HI. Denied symptoms consistent with psychosis Sleep and Appetite: Fair. Change in family/ living/job/financial/daily routine: No change. Change in medical condition: No change. Change in medications: No change. Side effects from Medications: None. Objective- MSE: Alert and attentive. Orientation times three. Dressed and Groomed: Appropriately. Pleasant and cooperative. Psychomotor Activity: Normal. Speech: Normal in tone, quality, and quantity. Mood: Depressed and anxious. Affect: Sad and subdued. SI or HI: None. Perceptual disturbance: None. Thought Content: No paranoia or other delusional thinking noted. Thought Process: Normal. Cognition: Intact Judgment and Insight :Poor. AIMS: Normal. Labs: No new labs. Diagnosis: No change. Plan and Recommendations: Continue current Medications. Monitor MS and side effects of medications and adjust medications accordingly. Provide supportive psychotherapy. The patient provided psychoeducation and advised The patient provided Substance abuse counseling. Smoke cessation therapy. The patient to attend muñiz activities. Medication Consent with explanation of risk/benefits and side effects: Explained and obtained.
[2023-09-07] MEDS: traZODone HCL 100 MG TAB PO PRN (21:53)
--- NOTE | 2023-09-08 15:56 | P.PN ---
Progress Note - Text Progress Note Date: 09/08/23 Follow-up Mediation Review Chief Complaint: I got this rash, it is from medication Subjective: The patient complaint of rash on his face. The patient was gently explained that it is possibly from his drinking. He also reported some pain on the right lower quadrant of abdomen. The patient was asked to address these issues with his medical doctor. The patient noted that his depression is still bad. He attributes his depression to his unresolved medical issues. He is very somatically preoccupied. Discussed patients medications. Suggested that increase in Cymbalta will be made to bring to optimal dose. The patient agreed. He also requested for Klonopin for his anxiety. The patient has been attending the groups. The participation is limited. The interaction with staff and peers is good. The patient is compliant with treatment recommendations. Leading questions: The patient admitted to Depression and Anxiety. Denied SI or HI. Denied symptoms consistent with psychosis Sleep and Appetite: Fair. Change in family/ living/job/financial/daily routine: No change. Change in medical condition: No change. Change in medications: No change. Side effects from Medications: None. Objective- MSE: Alert and attentive. Orientation times three. Dressed and Groomed: Appropriately. Pleasant and cooperative. Psychomotor Activity: Normal. Speech: Normal in tone, quality, and quantity. Mood: Depressed and anxious. Affect: Sad and subdued. SI or HI: None. Perceptual disturbance: None. Thought Content: No paranoia or other delusional thinking noted. Thought Process: Normal. Cognition: Intact Judgment and Insight: Poor. AIMS: Normal. Labs: New labs ordered. The qtc interval is 486. The ekg to be repeated. Diagnosis: No change. Plan and Recommendations: Continue current Medications. Increase Cymbalta to 40 mg daily. Add Klonopin 0.25 mg tid prn. Monitor MS and side effects of medications and adjust medications accordingly. Provide supportive psychotherapy. The patient provided psychoeducation and advised The patient provided Substance abuse counseling. Smoke cessation therapy. The patient to attend muñiz activities. Medication Consent with explanation of risk/benefits and side effects: Explained and obtained.
[2023-09-08] MEDS: clonazePAM 0.5 MG TAB PO PRN (18:55)
[2023-09-09] MEDS: DULoxetine HCL 20 MG CAPSULE.DR PO SCH (08:50)
[2023-09-09] MEDS: ARTIFICIAL TEARS-HYPROMELLOSE DROPS 15 ML BTL BOTH EYES PRN (08:54)
--- NOTE | 2023-09-09 14:03 | P.PN ---
Subjective Progress Note Date: 09/09/23 Principal diagnosis: Depressive disorder unspecified Alcohol use disorder Patient Name: Ajay Maharaj Date of : 1955 Patient Status: Inpatient Attending Provider: Wilder Reyes Date: 09/09/2023 initialization Date: 09/08/23 15:53 Subjective data: Patient was seen and chart was reviewed and case discussed with nursing staff Patient states that he has been hospitalized for over 35 times he states that he has a history of depression and that he originally came here for some cardiac issues and was also feeling very depressed He states that he currently lives with a roommate He admits a chronic problem with alcohol The patient has been attending the groups. The participation is limited. The interaction with staff and peers is good. The patient is compliant with treatment recommendations. The patient admitted to Depression and Anxiety. Denied SI or HI. Objective- MSE: Alert and attentive. Orientation times three. Dressed and Groomed: Appropriately. Pleasant and cooperative. Psychomotor Activity: Normal. Speech: Normal in tone, quality, and quantity. Mood: Depressed and anxious. Affect: Sad and subdued. SI or HI: None. Perceptual disturbance: None. Thought Content: No paranoia or other delusional thinking noted. Thought Process: Normal. Cognition: Intact Judgment and Insight: Improving Plan and Recommendations: Continue current Medications. Continue Cymbalta to 40 mg daily. Klonopin 0.25 mg tid prn. Monitor MS and side effects of medications and adjust medications accordingly. Provide supportive psychotherapy. The patient provided psychoeducation and advised The patient provided Substance abuse counseling. Smoke cessation therapy. The patient to attend muñiz activities. Medication Consent with explanation of risk/benefits and side effects: Explained and obtained. Guilherme Marina MD Objective - Vital Signs Vital signs: Vital Signs Temp 97.8 F 09/09/23 06:00 Pulse 98 09/09/23 06:00 Resp 20 09/09/23 06:00 BP 142/82 09/09/23 06:00 Pulse Ox 96 09/09/23 06:00 FiO2
[2023-09-09] MEDS: MAG HYDROX/AL HYDROX/SIMETH 355 ML BOTTLE PO PRN (19:27)
--- NOTE | 2023-09-10 09:17 | P.PN ---
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 The patient is compliant with treatment recommendations. The patient admitted to Depression and Anxiety. Denied SI or HI. Objective- MSE: Alert and attentive. Orientation times three. Dressed and Groomed: Appropriately. Pleasant and cooperative. Psychomotor Activity: Normal. Speech: Normal in tone, quality, and quantity. Mood: Depressed and anxious. Affect: Sad and subdued. SI or HI: None. Perceptual disturbance: None. Thought Content: No paranoia or other delusional thinking noted. Thought Process: Normal. Cognition: Intact Judgment and Insight: Improving Plan and Recommendations: Continue current Medications. Continue Cymbalta to 40 mg daily. Klonopin 0.25 mg tid prn. Monitor MS and side effects of medications and adjust medications accordingly. Provide supportive psychotherapy. The patient provided psychoeducation and advised The patient provided Substance abuse counseling. Smoke cessation therapy. The patient to attend muñiz activities. Medication Consent with explanation of risk/benefits and side effects: Explained and obtained. Guilherme Marina MD Objective - Vital Signs Vital signs: Vital Signs Temp 98 F 09/10/23 05:40 Pulse 94 09/10/23 05:40 Resp 16 09/10/23 05:40 BP 124/78 09/10/23 05:40 Pulse Ox 95 09/10/23 05:40 FiO2
[2023-09-11 12:10] LABS: Basophils # (A) 0.1 k/uL (0-0.2); Basophils % (A) 1 %; Eosinophils # (A) 0.3 k/uL (0-0.7); Eosinophils % (A) 3 %; HCT 49.6 % (39.0-53.0); Lymphocytes % (A) 9 %; MCH 34.1 pg (25.0-35.0); MCHC 31.4 g/dL (31.0-37.0); MCV 108.4 fL (80.0-100.0); Macrocytosis Moderate; Mean Platelet Volume 8.9; Monocytes # (A) 0.9 k/uL (0-1.0); Monocytes % (A) 8 %; Neutrophils # (A) 8.6 k/uL (1.3-7.7); Neutrophils % (A) 77 %; Platelet Count 261 k/uL (150-450); RBC 4.58 m/uL (4.30-5.90); RDW 12.3 % (11.5-15.5); WBC 11.1 k/uL (3.8-10.6)
[2023-09-11 12:20] LABS: ALT 90 U/L (4-49); AST 123 U/L (17-59); African American GFR (CKD) >90 (>60 ml/min/1.73 sqM); Albumin 4.1 g/dL (3.5-5.0); Alkaline Phosphatase 94 U/L (38-126); Anion Gap 8 mmol/L; Blood Urea Nitrogen 10 mg/dL (9-20); Calcium 9.7 mg/dL (8.4-10.2); Carbon Dioxide 20 mmol/L (22-30); Chloride 106 mmol/L (98-107); Glucose 90 mg/dL (74-99); HGB 15.6 gm/dL (13.0-17.5); Non-African American GFR(CKD) >90 (>60 ml/min/1.73 sqM); Potassium 4.5 mmol/L (3.5-5.1); Sodium 134 mmol/L (137-145); Total Bilirubin 0.8 mg/dL (0.2-1.3); Total Protein 6.8 g/dL (6.3-8.2)
[2023-09-11 19:30] LABS: Chol/HDL Ratio 2.51 Ratio; LDL Cholesterol,Calculated 83.8 mg/dL (0.0-131.0)
[2023-09-12] MEDS: DULoxetine HCL 60 MG CAPSULE.DR PO SCH (08:38)
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
--- NOTE | 2023-09-12 15:32 | P.PN ---
Progress Note - Text Progress Note Date: 09/11/23 Follow-up Mediation Review Chief Complaint: I am still feeling depressed Subjective: The patient noted that he is still thinking of killing himself all the time. The patient noted that he does not see any future for himself. The patient noted that his pain continues to bother him. He is still very preoccupied by the complaint of rash on his face. He wants to see his medical doctor. He asked the nursing staff. The patients appetite is fine his sleep is bad. The patient attended one group today. The patient further noted that he has been thinking of guns. He noted that once he almost jumped in a river with winter coat on to kill himself. His participation in groups is limited. The interaction with staff and peers is good. The patient is compliant with treatment recommendations. Leading questions: The patient admitted to Depression and Anxiety. Admits to suicidal ideations. Denied HI. Denied symptoms consistent with psychosis Sleep and Appetite: Impaired. Appetite is fine. Change in family/ living/job/financial/daily routine: No change. Change in medical condition: No change. Change in medications: No change. Side effects from Medications: None. Objective- MSE: Alert and attentive. Orientation times three. Dressed and Groomed: Appropriately. Pleasant and cooperative. Psychomotor Activity: Normal. Speech: Normal in tone, quality, and quantity. Mood: Depressed and anxious. Affect: Sad and subdued. SI or HI: Positive for suicidal ideations. Denied homicidal ideations. Perceptual disturbance: None. Thought Content: No paranoia or other delusional thinking noted. Thought Process: Normal. Cognition: Intact Judgment and Insight: Poor. AIMS: Normal. Labs: New labs ordered. The qtc interval is 486. The ekg to be repeated. Diagnosis: No change. Plan and Recommendations: Continue current Medications. Increase Cymbalta to 60 mg daily. Add Klonopin 0.25 mg tid prn. Monitor MS and side effects of medications and adjust medications accordingly. Provide supportive psychotherapy. The patient provided psychoeducation and advised The patient provided Substance abuse counseling. Smoke cessation therapy. The patient to attend muñiz activities. Medication Consent with explanation of risk/benefits and side effects: Explained and obtained.
[2023-09-13] MEDS: DULoxetine HCL 20 MG CAPSULE.DR PO SCH (08:47)
--- NOTE | 2023-09-13 16:25 | P.PN ---
Progress Note - Text Progress Note Date: 09/13/23 Subjective: The patient noted that he is doing better today. He attended group and actively participated. The patient noted that he does not to dwell on his negative thoughts. His face rash is markedly improved. He appeared in better spirits but sits alone and worries about his life. The patient noted that the suicidal thoughts keep coming back. He did not talk about any suicidal plans. Discussed increasing the dose of Cymbalta to 40 mg. The patient attends group sporadically. His participation in groups is limited. The interaction with staff and peers is good. The patient is compliant with treatment recommendations. Leading questions: The patient admitted to Depression and Anxiety. Admits to suicidal ideations. Denied HI. Denied symptoms consistent with psychosis Sleep and Appetite: Impaired. Appetite is fine. Change in family/ living/job/financial/daily routine: No change. Change in medical condition: No change. Change in medications: No change. Side effects from Medications: None. Objective- MSE: Alert and attentive. Orientation times three. Dressed and Groomed: Appropriately. Pleasant and cooperative. Psychomotor Activity: Normal. Speech: Normal in tone, quality, and quantity. Mood: Depressed and anxious. Affect: Sad and subdued. SI or HI: Positive for suicidal ideations. Denied homicidal ideations. Perceptual disturbance: None. Thought Content: No paranoia or other delusional thinking noted. Thought Process: Normal. Cognition: Intact Judgment and Insight: Poor. AIMS: Normal. Labs: New labs ordered. The qtc interval is 486. The EKG done yesterday shows qtc to be 446ms Diagnosis: No change. Plan and Recommendations: Continue current Medications. Cymbalta 40 mg po daily. Monitor MS and side effects of medications and adjust medications accordingly. Provide supportive psychotherapy. The patient provided psychoeducation and advised The patient provided Substance abuse counseling. Smoke cessation therapy. The patient to attend muñiz activities. Medication Consent with explanation of risk/benefits and side effects: Explained and obtained.
[2023-09-13] MEDS: diphenhydrAMINE 2% CREAM 28.4 GM TUBE TOPICAL PRN (21:43)
[2023-09-14 06:58] VITALS: RESP 18
[2023-09-14] MEDS: DULoxetine HCL 20 MG CAPSULE.DR PO SCH (09:02)
[2023-09-14 10:44] VITALS: BMI 26.4
[2023-09-14 21:27] LABS: Basophils # (A) 0.1 k/uL (0-0.2); Basophils % (A) 1 %; Eosinophils # (A) 0.5 k/uL (0-0.7); Eosinophils % (A) 5 %; HCT 46.8 % (39.0-53.0); HGB 15.1 gm/dL (13.0-17.5); Lymphocytes # (A) 1.5 k/uL (1.0-4.8); Lymphocytes % (A) 16 %; MCH 34.7 pg (25.0-35.0); MCHC 32.4 g/dL (31.0-37.0); MCV 107.2 fL (80.0-100.0); Macrocytosis Moderate; Mean Platelet Volume 9.2; Monocytes # (A) 0.8 k/uL (0-1.0); Monocytes % (A) 9 %; Neutrophils # (A) 6.6 k/uL (1.3-7.7); Neutrophils % (A) 68 %; Platelet Count 287 k/uL (150-450); RBC 4.36 m/uL (4.30-5.90); RDW 12.4 % (11.5-15.5); WBC 9.7 k/uL (3.8-10.6)
[2023-09-14 21:54] LABS: ALT 74 U/L (4-49); AST 91 U/L (17-59); African American GFR (CKD) >90 (>60 ml/min/1.73 sqM); Alkaline Phosphatase 115 U/L (38-126); Anion Gap 8 mmol/L; Blood Urea Nitrogen 18 mg/dL (9-20); Calcium 9.5 mg/dL (8.4-10.2); Carbon Dioxide 26 mmol/L (22-30); Chloride 103 mmol/L (98-107); Glucose 85 mg/dL (74-99); Magnesium 1.4 mg/dL (1.6-2.3); Non-African American GFR(CKD) >90 (>60 ml/min/1.73 sqM); Potassium 4.4 mmol/L (3.5-5.1); Sodium 137 mmol/L (137-145); Total Bilirubin 0.7 mg/dL (0.2-1.3); Total Protein 6.7 g/dL (6.3-8.2)
[2023-09-14] MEDS: CEPHALEXIN 500 MG CAP PO SCH (21:55)
[2023-09-15 06:42] VITALS: TEMP 97.8
[2023-09-15 08:54] VITALS: BP 133/72; PULSE 91
--- NOTE | 2023-09-15 10:31 | P.PN ---
Progress Note - Text Progress Note Date: 09/14/23 In-patient med. Follow-up note. Late entry for 09/14/2023 Chief Complaint: I am depressed Subjective: The patient noted that he feels the same He continues have suicidal thoughts. He expresses passive thoughts. He Cymbalta is being titrated up. He attended some groups and actively participated. The patient continues to have negative and pessimistic thoughts. He reports suicidal thoughts and intent The patient attends group sporadically. His participation in groups is limited. The interaction with staff and peers is good. The patient is compliant with treatment recommendations. Leading questions: The patient admitted to Depression and Anxiety. Admits to suicidal ideations and intent. Denied HI. Denied symptoms consistent with psychosis Sleep and Appetite: Impaired. Appetite is fine. Change in family/ living/job/financial/daily routine: No change. Change in medical condition: No change. Change in medications: No change. Side effects from Medications: None. Objective- MSE: Alert and attentive. Orientation times three. Dressed and Groomed: Appropriately. Pleasant and cooperative. Psychomotor Activity: Normal. Speech: Normal in tone, quality, and quantity. Mood: Depressed and anxious. Affect: Sad and subdued. SI or HI: Positive for suicidal ideations. Denied homicidal ideations. Perceptual disturbance: None. Thought Content: No paranoia or other delusional thinking noted. Thought Process: Normal. Cognition: Intact Judgment and Insight: Poor. AIMS: Normal. Labs: New labs ordered. Diagnosis: No change. Plan and Recommendations: Continue current Medications. Monitor MS and side effects of medication and titrate the dose accordingly. Provide supportive psychotherapy. The patient provided psychoeducation and advised The patient provided Substance abuse counseling. Smoke cessation therapy. The patient to attend muñiz activities. Medication Consent with explanation of risk/benefits and side effects: Explained and obtained.
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
--- NOTE | 2023-09-15 23:59 | P.PN ---
Progress Note - Text Progress Note Date: 09/15/23 Brief Transfer Note: The patient was seen by POW[facility]ED [facility] PULVERIZER OPERATOR from [facility]. The patient is to be transferred to medical floor under this group for management of Lt leg infection for IV antibiotics. Wilder Reyes M.D. Psychiatry
[2023-09-16] MEDS ORDERED: DULoxetine HCL 60 MG CAPSULE.DR PO SCH (09:00)
== END 2023-09-15 19:17 | disposition short-term general hospital (02) | DRG 885 ==
LOC: 3MHU 22:42 → UNDOADMIN 22:42 → 3MHU 23:03
PROVIDERS: ADMIT Psychiatry & Neurology Psychiatry; ATTEND Psychiatry & Neurology Psychiatry
DX: F33.2 Major depressive disorder, recurrent severe without psychotic features (principal); R45.851 Suicidal ideations; L03.116 Cellulitis of left lower limb; F41.9 Anxiety disorder, unspecified; F17.200 Nicotine dependence, unspecified, uncomplicated; F43.10 Post-traumatic stress disorder, unspecified; G89.29 Other chronic pain; I10 Essential (primary) hypertension; L90.5 Scar conditions and fibrosis of skin; J44.89 Other specified chronic obstructive pulmonary disease; F10.20 Alcohol dependence, uncomplicated; S81.812S Laceration without foreign body, left lower leg, sequela; V03.90XS Pedestrian on foot injured in collision with car, pick-up truck or van, unspecified whether traffic or nontraffic accident, sequela; L08.9 Local infection of the skin and subcutaneous tissue, unspecified; M19.90 Unspecified osteoarthritis, unspecified site; Z79.899 Other long term (current) drug therapy; Z86.14 Personal history of Methicillin resistant Staphylococcus aureus infection; Z87.01 Personal history of pneumonia (recurrent); Z88.6 Allergy status to analgesic agent; Z88.1 Allergy status to other antibiotic agents; Z88.5 Allergy status to narcotic agent; Z88.0 Allergy status to penicillin; Z88.2 Allergy status to sulfonamides; Z28.21 Immunization not carried out because of patient refusal
CPT/HCPCS: 80053; 80061; 83036; 83735; 84443; 85025; 87070; 87075; 87077; 87186; 87205; 93005

== ENCOUNTER 2023-09-15 11:33 | Inpatient (IN) | payer MEDICARE, OTHER ==
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
[2023-09-15] MEDS ORDERED: VANCOMYCIN IV PER PHARMACY 1 EACH MISC MISCELLANE PRN (19:24)
[2023-09-15] MEDS ORDERED: MAG HYDROX/AL HYDROX/SIMETH 30 ML CUP PO PRN (19:27)
[2023-09-15] MEDS ORDERED: NALOXONE 0.4 MG/ML 1 ML VIAL IV PRN (19:27)
[2023-09-15] MEDS ORDERED: ONDANSETRON 4 MG/2 ML VIAL IVP PRN (19:27)
--- NOTE | 2023-09-15 19:52 | XR ---
EXAMINATION TYPE: XR chest 1V DATE OF EXAM: 09/15/2023 7:49 PM CLINICAL INDICATION:Male, 67 years old with history of shortness of breath; H COMPARISON: Chest radiographs from 09/02/2023 TECHNIQUE: XR chest 1V Frontal view of the chest. FINDINGS: Lungs/Pleura: There is no evidence of pleural effusion, focal consolidation, or pneumothorax. Pulmonary vascularity: Unremarkable. Heart/mediastinum: Cardiomediastinal silhouette is unremarkable. Musculoskeletal: No acute osseous pathology. IMPRESSION: No acute cardiopulmonary disease/process.
[2023-09-15 20:01] LABS: Basophils # (A) 0.1 k/uL (0-0.2); Basophils % (A) 1 %; Eosinophils # (A) 0.6 k/uL (0-0.7); Eosinophils % (A) 6 %; HGB 13.9 gm/dL (13.0-17.5); Lymphocytes # (A) 1.4 k/uL (1.0-4.8); Lymphocytes % (A) 14 %; MCH 34.6 pg (25.0-35.0); MCHC 32.4 g/dL (31.0-37.0); MCV 106.9 fL (80.0-100.0); Macrocytosis Slight; Mean Platelet Volume 8.1; Monocytes # (A) 0.5 k/uL (0-1.0); Monocytes % (A) 6 %; Neutrophils # (A) 6.7 k/uL (1.3-7.7); Neutrophils % (A) 71 %; Platelet Count 262 k/uL (150-450); RBC 4.02 m/uL (4.30-5.90); WBC 9.5 k/uL (3.8-10.6)
[2023-09-15 20:13] LABS: ALT 53 U/L (4-49); AST 59 U/L (17-59); African American GFR (CKD) >90 (>60 ml/min/1.73 sqM); Albumin 3.5 g/dL (3.5-5.0); Albumin/Globulin Ratio 1.3; Alkaline Phosphatase 102 U/L (38-126); Anion Gap 5 mmol/L; Blood Urea Nitrogen 18 mg/dL (9-20); Calcium 9.2 mg/dL (8.4-10.2); Carbon Dioxide 24 mmol/L (22-30); Chloride 106 mmol/L (98-107); Globulin 2.6 g/dL; Glucose 118 mg/dL (74-99); Magnesium 1.5 mg/dL (1.6-2.3); Non-African American GFR(CKD) >90 (>60 ml/min/1.73 sqM); Sodium 135 mmol/L (137-145); Total Bilirubin 0.7 mg/dL (0.2-1.3); Total Protein 6.1 g/dL (6.3-8.2)
[2023-09-15] MEDS ORDERED: Magnesium Replacement Protocol 1 EACH MISC MISCELLANE PRN (20:37)
[2023-09-15] MEDS: traZODone HCL 100 MG TAB PO SCH (21:16)
[2023-09-15] MEDS: KETOROLAC 15 MG/ML 1 ML VIAL IVP SCH (21:17)
[2023-09-15] MEDS: HYDROcodone/APAP 10-325MG 1 EACH TAB PO PRN (21:17)
[2023-09-15] MEDS: MAGNESIUM SULFATE-D5W PMX 1 GM in DEXTROSE/WATER 1 100ML.BAG IVPB SCH (21:18)
[2023-09-15] MEDS: HEPARIN SODIUM,PORCINE 5,000 UNIT/ML 1 ML VIAL SQ SCH (21:24)
[2023-09-15] MEDS: clonazePAM 0.5 MG TAB PO STA (22:43)
[2023-09-15] MEDS: VANCOMYCIN 1,000 MG in SODIUM CHLORIDE 0.9% 250 ML IVPB SCH (23:17)
[2023-09-16] MEDS: traMADol 50 MG TAB PO PRN (00:20)
[2023-09-16 07:53] LABS: African American GFR (CKD) >90 (>60 ml/min/1.73 sqM); Non-African American GFR(CKD) >90 (>60 ml/min/1.73 sqM)
[2023-09-16] MEDS: LOSARTAN 25 MG TAB PO SCH (08:14)
[2023-09-16] MEDS: PANTOPRAZOLE 40 MG TABLET PO SCH (08:14)
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
[2023-09-16] MEDS: DULoxetine HCL 30 MG CAPSULE.DR PO SCH (12:01)
[2023-09-16] MEDS: ENOXAPARIN 40 MG/0.4 ML SYRINGE SQ SCH (12:01)
[2023-09-16] MEDS: ACETAMINOPHEN TAB 325 MG TAB PO PRN (12:06)
[2023-09-16] MEDS: clonazePAM 1 MG TAB PO SCH (15:54)
[2023-09-16] MEDS: QUEtiapine 25 MG TAB PO SCH (15:54)
[2023-09-16 16:02] VITALS: BMI 25.0
[2023-09-17 04:25] LABS: African American GFR (CKD) >90 (>60 ml/min/1.73 sqM); Anion Gap 4 mmol/L; Blood Urea Nitrogen 20 mg/dL (9-20); Calcium 8.6 mg/dL (8.4-10.2); Carbon Dioxide 24 mmol/L (22-30); Chloride 108 mmol/L (98-107); Glucose 78 mg/dL (74-99); Non-African American GFR(CKD) >90 (>60 ml/min/1.73 sqM); Potassium 4.2 mmol/L (3.5-5.1); Sodium 136 mmol/L (137-145)
[2023-09-17] MEDS: PANTOPRAZOLE 40 MG TABLET PO SCH (06:43)
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
[2023-09-17] MEDS: VANCOMYCIN TROUGH DUE 1 EACH MISC MISCELLANE ONE (11:24)
[2023-09-17] MEDS: VANCOMYCIN 1,000 MG in SODIUM CHLORIDE 0.9% 250 ML IVPB SCH (17:06)
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
[2023-09-18 04:44] LABS: African American GFR (CKD) >90 (>60 ml/min/1.73 sqM); Anion Gap 6 mmol/L; Blood Urea Nitrogen 17 mg/dL (9-20); Calcium 8.6 mg/dL (8.4-10.2); Carbon Dioxide 23 mmol/L (22-30); Chloride 109 mmol/L (98-107); Glucose 83 mg/dL (74-99); Non-African American GFR(CKD) >90 (>60 ml/min/1.73 sqM); Potassium 3.9 mmol/L (3.5-5.1); Sodium 138 mmol/L (137-145)
[2023-09-18] MEDS ORDERED: ALBUTEROL NEBULIZED 2.5 MG/3 ML INHALATION PRN (14:09)
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
[2023-09-18] MEDS: SYMBICORT 80-4.5 MCG INHALER INHALATION SCH (14:19)
[2023-09-18] MEDS: VANCOMYCIN TROUGH DUE 1 EACH MISC MISCELLANE ONE (16:15)
[2023-09-19] MEDS: CALCIUM CARBONATE 500 MG CHEWABLE PO PRN (02:33)
[2023-09-19 04:11] LABS: African American GFR (CKD) >90 (>60 ml/min/1.73 sqM); Non-African American GFR(CKD) >90 (>60 ml/min/1.73 sqM)
[2023-09-19] MEDS: clonazePAM 1 MG TAB PO SCH (05:37)
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
--- NOTE | 2023-09-19 15:44 | P.CN ---
Psychiatric Consult - . Consult date: 09/19/23 Consult:: 09/19/23 15:44 Consultation: The patient presented to the hospital with complains of suicidality by hanging himself, or shooting himself. He also complaint of chest pain, shortness of breath. After initial work-up, he was admitted to this unit for psychiatric management on 09/06/2023. He was provided treatment for his depression and suicidality. The patient continued to have suicidal thoughts and depression. The patient complaint of worsening of his left leg. A medical consult was called. The patient was diagnosed with cellulitis and transferred to medical floor on 09/14/2023. After medical stabilization he is being transferred to psychiatric unit. During this evaluation, the patient reported depressed mood, anhedonia, guilt, low energy, low concentration, low appetite, psychomotor slowing, feeling worthless, hopeless and thoughts of not living anymore. He also expressed concern about not able to hear and giddiness. The patient noted that he almost fell twice. He is very concern about this. He stated that this happened to him in the past. Patient has h/o of psychiatric treatment since age 29. He has had 7-10 admissions to psychiatric hospitals. His last admission was in April, to this hospital. He has had sporadic out-pt treatment. He has been to [facility] was a year ago. The patient noted that after discharge from here he never sought out-pt treatment. Leading questions: The patient admitted to Depression and Anxiety. The patient has passive wishes. Denied HI. Denied symptoms consistent with psychosis Drugs and alcohol history: The patient admitted to drinking too much. He smokes Marijuana three times a week. Tobacco use: 1-2 packs a day. Past Medical history: COPD, HTN, PA, TBI, Cellulitis of left leg Objective: MSE: Alert and attentive. Orientation times three Dressed and Groomed: Appropriately. Pleasant and cooperative. Psychomotor Activity: Normal. Speech: Normal in tone, quality, and quantity. Mood: Depressed. Affect: sad and anxious. SI or HI: The patient currently has passive wish but sometimes also thinks of suicide with no plans. Perceptual disturbance: None. Thought Content: No paranoia or other delusional thinking noted. Thought Process: Normal. Cognition: Intact Judgment and Insight: Poor. Diagnosis: Major depressive disorder, recurrent, severe Alcohol Dependence Nicotine Dependence. Plan and Recommendations: The patient needs in-patient psychiatric admission. Transfer patient to psychiatric in-patient unit after medical stabilization. Will Sign off the case. Wilder Reyes MD Psychiatry
[2023-09-19] MEDS: NYSTATIN 100,000 UNIT/GM POWD 15 GM TOPICAL SCH (23:29)
[2023-09-20 08:16] VITALS: TEMP 98.6
[2023-09-20] MEDS: VANCOMYCIN TROUGH DUE 1 EACH MISC MISCELLANE ONE (09:21)
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
[2023-09-20 14:29] VITALS: BP 167/83; PULSE 88; RESP 18
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
== END 2023-09-20 18:02 | DRG 603 ==
LOC: 4SSUR 18:13
PROVIDERS: ADMIT Hospitalist; ATTEND Hospitalist
DX: L03.116 Cellulitis of left lower limb (principal); R45.851 Suicidal ideations; F33.2 Major depressive disorder, recurrent severe without psychotic features; L97.922 Non-pressure chronic ulcer of unspecified part of left lower leg with fat layer exposed; Z59.00 Homelessness unspecified; F10.20 Alcohol dependence, uncomplicated; I10 Essential (primary) hypertension; J44.89 Other specified chronic obstructive pulmonary disease; Z28.310 Unvaccinated for COVID-19; R07.9 Chest pain, unspecified; F41.9 Anxiety disorder, unspecified; F43.10 Post-traumatic stress disorder, unspecified; G89.29 Other chronic pain; S81.802D Unspecified open wound, left lower leg, subsequent encounter; I25.2 Old myocardial infarction; M19.90 Unspecified osteoarthritis, unspecified site; F17.210 Nicotine dependence, cigarettes, uncomplicated; Z71.6 Tobacco abuse counseling; Z79.51 Long term (current) use of inhaled steroids; Z79.899 Other long term (current) drug therapy; Z59.82 Transportation insecurity; Z86.14 Personal history of Methicillin resistant Staphylococcus aureus infection; Z86.19 Personal history of other infectious and parasitic diseases; Z88.1 Allergy status to other antibiotic agents; Z88.5 Allergy status to narcotic agent; Z88.0 Allergy status to penicillin; Z88.2 Allergy status to sulfonamides; Z88.6 Allergy status to analgesic agent
CPT/HCPCS: 71045; 80048; 80053; 80202; 82565; 83735; 84145; 85025; 87040; 87070; 87205; 87635; 94640

== ENCOUNTER 2023-09-20 15:34 | Inpatient (IN) | payer MEDICARE, MEDICAID ==
[2023-09-20] MEDS ORDERED: SYMBICORT 80-4.5 MCG INHALER INHALATION PRN (15:50)
[2023-09-20] MEDS ORDERED: ALBUTEROL NEBULIZED 2.5 MG/3 ML INHALATION PRN (15:50)
[2023-09-20] MEDS ORDERED: MAG HYDROX/AL HYDROX/SIMETH 355 ML BOTTLE PO PRN (16:04)
[2023-09-20] MEDS ORDERED: MAGNESIUM HYDROXIDE 2,400 MG/30 ML CUP PO PRN (16:04)
[2023-09-20] MEDS: QUEtiapine 25 MG TAB PO SCH (18:39)
[2023-09-20] MEDS: traZODone HCL 100 MG TAB PO SCH (21:14)
[2023-09-20] MEDS: DOXYCYCLINE 100 MG CAP PO SCH (21:15)
[2023-09-20] MEDS: traMADol 50 MG TAB PO PRN (21:17)
[2023-09-20] MEDS: HYDROcodone/APAP 5-325MG 1 EACH TAB PO PRN (21:19)
[2023-09-20] MEDS: clonazePAM 1 MG TAB PO PRN (21:37)
[2023-09-20] MEDS: NYSTATIN 100,000 UNIT/GM POWD 15 GM TOPICAL SCH (22:38)
[2023-09-21] MEDS: IBUPROFEN 600 MG TAB PO PRN (00:33)
[2023-09-21] MEDS: HYDROcodone/APAP 5-325MG 1 EACH TAB PO STA (00:48)
[2023-09-21] MEDS: MELATONIN 3 MG TABLET PO SCH (00:48)
[2023-09-21] MEDS: LOSARTAN 25 MG TAB PO SCH (08:53)
[2023-09-21] MEDS: PANTOPRAZOLE 40 MG TABLET PO SCH (08:53)
[2023-09-21] MEDS: clonazePAM 0.5 MG TAB PO SCH (08:59)
[2023-09-21] MEDS ORDERED: DULoxetine HCL 30 MG CAPSULE.DR PO SCH (09:00)
[2023-09-21] MEDS: DULoxetine HCL 20 MG CAPSULE.DR PO SCH (09:06)
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
[2023-09-21 13:04] LABS: Basophils # (A) 0.1 k/uL (0-0.2); Basophils % (A) 1 %; Eosinophils # (A) 0.4 k/uL (0-0.7); Eosinophils % (A) 4 %; HCT 44.3 % (39.0-53.0); HGB 13.8 gm/dL (13.0-17.5); Lymphocytes # (A) 1.4 k/uL (1.0-4.8); Lymphocytes % (A) 18 %; MCHC 31.2 g/dL (31.0-37.0); MCV 108.8 fL (80.0-100.0); Macrocytosis Moderate; Mean Platelet Volume 8.7; Monocytes # (A) 0.6 k/uL (0-1.0); Monocytes % (A) 7 %; Neutrophils # (A) 5.4 k/uL (1.3-7.7); Neutrophils % (A) 67 %; Platelet Count 274 k/uL (150-450); RBC 4.07 m/uL (4.30-5.90); RDW 12.1 % (11.5-15.5)
[2023-09-21 13:22] LABS: ALT 32 U/L (4-49); AST 54 U/L (17-59); African American GFR (CKD) >90 (>60 ml/min/1.73 sqM); Albumin 3.5 g/dL (3.5-5.0); Alkaline Phosphatase 79 U/L (38-126); Anion Gap 5 mmol/L; Blood Urea Nitrogen 11 mg/dL (9-20); Calcium 9.4 mg/dL (8.4-10.2); Carbon Dioxide 24 mmol/L (22-30); Chloride 109 mmol/L (98-107); Glucose 86 mg/dL (74-99); Non-African American GFR(CKD) >90 (>60 ml/min/1.73 sqM); Potassium 4.3 mmol/L (3.5-5.1); Sodium 138 mmol/L (137-145); Total Bilirubin 0.6 mg/dL (0.2-1.3); Total Protein 6.1 g/dL (6.3-8.2)
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
--- NOTE | 2023-09-22 17:07 | P.PN ---
Progress Note - Text Progress Note Date: 09/22/23 Follow-up Mediation Review Chief Complaint: I am not good Subjective: The patient remains preoccupied with hearing and leg. The patient thinks that he should have never come here from medical floor. The patient states that he gets depressed due to physical condition. He is showing no side effects of the medications. Leading questions: The patient admitted to Depression and Anxiety. Denied SI or HI. Denied symptoms consistent with psychosis Sleep and Appetite: Fine. Change in medical condition: No change. Change in medications: No change Side effects from Medications: None. Objective- MSE: Alert and attentive. Orientation times three. Dressed and Groomed: Appropriately. Pleasant and cooperative. Psychomotor Activity: Normal. Speech: Normal in tone, quality, and quantity. Mood: Depressed and anxious. Affect: Irritated and anxious. SI or HI: None. Perceptual disturbance: None. Thought Content: No paranoia or other delusional thinking noted. Thought Process: Normal. Cognition: Intact Judgment and Insight: Fair. AIMS: Normal. Labs: No new labs. Diagnosis: No change Plan and Recommendations: Continue current Medications. Monitor MS and side effects of medications and adjust medications accordingly. Provide supportive psychotherapy. The patient provided psychoeducation and advised The patient provided Substance abuse counseling. Smoke cessation therapy. The patient to attend muñiz milieu. Medication Consent with explanation of risk/benefits and side effects: Explained and obtained.
[2023-09-22] MEDS: ZINC OXIDE PASTE (Z-GUARD) 1 APPLIC TOPICAL SCH (21:04)
[2023-09-22] MEDS: ALBUTEROL HFA INHALER INHALATION PRN (21:30)
--- NOTE | 2023-09-23 11:28 | P.PN ---
Subjective Progress Note Date: 09/23/23 Principal diagnosis: Major depression recurrent nonpsychotic Subjective: The patient was lying in his bed fast asleep at 11:00 in the morning he is quite somatically focused pointing out that both of his lower extremities are swollen which seems to be the case and he assumes is septic. Evidently he has a history of MRSA which would leave him jumpy. He also claims to have lost his hearing although he seemed to hear me fine and he was wondering frequent crank his Klonopin back up this was a preoccupation. He wanted go on and on now reasonable was for him to be anxious due to all the stresses in his life. He continues to say he is suicidal. Denies any psychotic symptoms self-care is minimal. Objective: Decreased eye contact was not keeping the dressing on his leg pr operly the problem is weak and rapid with Kris bandage when he suicidal. He is oriented no signs of psychosis affect is serious self-care minimal he can take a step or 2 from his bed to the wheelchair and then Parish wheelchair around pretty well. Assessment: Patient is depressed somatic and then he doesn't follow through. He was discharged on supposedly 60 twice a day of Cymbalta which she never talked as he had "too many medicines" however it's a great idea with him being in chronic pain he can be quite helpful. So I taught him about that and encouraged him to take it. His whole focus of course was on increasing the Klonopin. Plan any increase in Klonopin I think should be left to the attending I will run up is Seroquel some to get a little bit more relief on an anxiety current dose of 25 3 times a day is not rising him to be lethargic. I don't think that's the cause of his swollen legs I think is probably the antibiotic is area so are going increase the Cymbalta to 60 and the Seroquel to 50 3 times a day with 150 at night Mason Del Toro anxiety is tomorrow Objective - Vital Signs Vital signs: Vital Signs Temp 97.6 F 09/23/23 09:25 Pulse 86 09/23/23 09:25 Resp 14 09/23/23 00:56 BP 113/70 09/23/23 09:25 Pulse Ox 96 09/22/23 06:25 FiO2 - Labs CBC & Chem 7: 09/21/23 12:20 09/21/23 12:20
[2023-09-23] MEDS: QUEtiapine 50 MG TAB PO SCH ×2 (11:44→20:58)
[2023-09-23] MEDS ORDERED: QUEtiapine 50 MG TAB PO SCH (16:00)
[2023-09-24] MEDS: DULoxetine HCL 60 MG CAPSULE.DR PO SCH (08:05)
[2023-09-24] MEDS: clonazePAM 1 MG TAB PO STA (11:50)
[2023-09-24] MEDS ORDERED: NYSTAT-TRIAMCIN 100,000-0.1 UNIT/GM-% CREAM 30 GM TUBE TOPICAL SCH (13:15)
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
[2023-09-24] MEDS: FUROSEMIDE 40 MG TAB PO SCH (13:51)
[2023-09-24] MEDS: NYSTATIN 100,000UNIT/GM CREAM 30 GM TUBE TOPICAL SCH (15:05)
[2023-09-24] MEDS: TRIAMCINOLONE 0.1% CREAM 80 GM TUBE TOPICAL SCH (15:06)
[2023-09-24] MEDS: clonazePAM 1 MG TAB PO SCH (18:09)
[2023-09-24] MEDS: CALCIUM CARBONATE 500 MG CHEWABLE PO PRN (20:57)
[2023-09-25 11:19] LABS: African American GFR (CKD) >90 (>60 ml/min/1.73 sqM); Anion Gap 6 mmol/L; Blood Urea Nitrogen 16 mg/dL (9-20); Calcium 9.2 mg/dL (8.4-10.2); Carbon Dioxide 23 mmol/L (22-30); Chloride 105 mmol/L (98-107); Glucose 79 mg/dL (74-99); Non-African American GFR(CKD) >90 (>60 ml/min/1.73 sqM); Sodium 134 mmol/L (137-145)
--- NOTE | 2023-09-25 21:01 | P.PN ---
Progress Note - Text Progress Note Date: 09/25/23 Follow-up Mediation Review Chief Complaint: I am sleeping all the time Subjective: The patient noted that he can hardly stay awake. The patient was noted to be confused at times. He was saying things unrelated to the subject. He was easily distracted and fell sleepy or became drowsy to hold any meaningful conversation for sustained period of time. The patient was concerned about his left leg wound. The medical team came and refused to accept the patient. The patients Klonopin and Seroquel were increased over the weekend. It is plausible that todays sedation is secondary to increased dose of these two sedating medications. Leading questions: The patient admitted to Depression and Anxiety. Denied SI or HI, but indicated that he does have suicidal thoughts flashing in his mind off and on. He feels this way due to his declining physical health and his wound not healing. Denied symptoms consistent with psychosis Sleep and Appetite: Fine. Change in medical condition: Worsening of his leg wound Change in medications: Klonopin decreased to 0.5 mg bid. Seroquel decreased to 50 mg tid. Side effects from Medications: Excessive sedation. Objective- MSE: Alert andsemi- attentive. Orientation times three. Dressed and Groomed: Appropriately. Pleasant and cooperative. Psychomotor Activity: Decreased. Speech: Normal in tone, quality, and quantity. Mood: Depressed and anxious. Affect: Mellowed and submissive, blunted SI or HI: None. The patient still has suicidal thought off and on. Perceptual disturbance: None. Thought Content: No paranoia or other delusional thinking noted. Thought Process: Normal. Cognition: Intact Judgment and Insight: Fair. AIMS: Normal. Labs: No new labs. Diagnosis: No change Plan and Recommendations: Continue current Medications. Changed medications as indicated earlier. Monitor MS and side effects of medications and adjust medications accordingly. Provide supportive psychotherapy. The patient provided psychoeducation and advised The patient provided Substance abuse counseling. Smoke cessation therapy. The patient partially attend muñ[facility]. Medication Consent with explanation of risk/benefits and side effects: Explained and obtained.
[2023-09-26] MEDS: clonazePAM 0.5 MG TAB PO SCH (09:02)
--- NOTE | 2023-09-27 09:06 | P.PN ---
Progress Note - Text Progress Note Date: 09/26/23 LATE ENTRY FOR 09/26/2023 Follow-up Mediation Review Chief Complaint: I am very depressed Subjective: The patient noted that he is getting worse because his leg is worse and might have MERSA. The patient is angry, frustrated and upset thinking that he was prematurely discharged from medical floor. He has received IV antibiotics in the past for longer duration of time for MERSA. He is preoccupied that he may lose his leg. The patient noted, I cant think, I am depressed and suicidal thinking all this. The patient remains very depressed and losing hope. can hardly stay awake. Leading questions: The patient admitted to Depression and Anxiety. Admitted to SI. Denied HI. Denied symptoms consistent with psychosis Sleep and Appetite: Adequate. Change in medical condition: Worsening of his leg wound Change in medications: No change. Side effects from Medications: None. Objective- MSE: Alert and attentive. Orientation times three. Dressed and Groomed: Appropriately. Pleasant and cooperative. Psychomotor Activity: Decreased. Speech: Normal in tone, quality, and quantity. Mood: Depressed and anxious, upset. Affect: Resigned, blunted, worried SI or HI: Admits to suicidal thoughts. Perceptual disturbance: None. Thought Content: No paranoia or other delusional thinking noted. Thought Process: Normal. Cognition: Intact Judgment and Insight: Poor AIMS: Normal. Labs: No new labs. Diagnosis: No change Plan and Recommendations: Continue current Medications. Monitor MS and side effects of medications and adjust medications accordingly. Provide supportive psychotherapy. The patient provided psychoeducation and advised The patient provided Substance abuse counseling. Smoke cessation therapy. The patient attending muñ[facility]. Medication Consent with explanation of risk/benefits and side effects: Explained and obtained.
--- NOTE | 2023-09-27 10:40 | P.PN ---
Progress Note - Text Progress Note Date: 09/27/23 Follow-up Mediation Review Chief Complaint: I cant hear Subjective: The patient remains preoccupied with his medical problems. He is very focused on his hearing today. The patient complins of worsening depression and suicidal ideations. He stated having suicidal thoughts. Discussed increasing the Cymbalta to 80 mg. Explained the risk/benefits and side effects. The patient agreed. Leading questions: The patient admitted to Depression and Anxiety. Admitted to SI. Denied HI. Denied symptoms consistent with psychosis Sleep and Appetite: Adequate. Change in medical condition: None Change in medications: No change. Side effects from Medications: None. Objective- MSE: Alert and attentive. Orientation times three. Dressed and Groomed: Appropriately. Pleasant and cooperative. Psychomotor Activity: Normal Speech: Normal in tone, quality, and quantity. Mood: Depressed and anxious. Affect: Anxious and worried SI or HI: Admits to suicidal thoughts. Perceptual disturbance: None. Thought Content: No paranoia or other delusional thinking noted. Thought Process: Normal. Cognition: Intact Judgment and Insight: Poor AIMS: Normal. Labs: No new labs. Diagnosis: No change Plan and Recommendations: Continue current Medications. Increase Cymbalta to 80 mg daily. Monitor MS and side effects of medications and adjust medications accordingly. Provide supportive psychotherapy. The patient provided psychoeducation and advised The patient provided Substance abuse counseling. Smoke cessation therapy. The patient is attending muñ[facility]. Medication Consent with explanation of risk/benefits and side effects: Explained and obtained.
[2023-09-28] MEDS: DULoxetine HCL 20 MG CAPSULE.DR PO SCH (08:54)
--- NOTE | 2023-09-28 21:18 | P.PN ---
Progress Note - Text Progress Note Date: 09/28/23 Follow-up Mediation Review Chief Complaint: I am trying to be more positive Subjective: The patient remains preoccupied with his medical problems. He was mostly talking about his hearing and the worsening leg. However, it was reported that the patients leg is much better than before. The patient has been up and around on the muñiz. He has been interacting with staff and peers fine. He did not express any suicidal thoughts spontaneously. The patient was in better spirits. The patient was encouraged to focus on his depression and suicidality and working on some of this as an out-pt. The patient did seem to be receptive at this point. He immediately becomes very withdrawn and subdued. The patient did not report any side effects from Leading questions: The patient admitted to Depression and Anxiety. Admitted to fleeting SI. Denied HI. Denied symptoms consistent with psychosis Sleep and Appetite: Adequate. Change in medical condition: None Change in medications: No change. Side effects from Medications: None. Objective- MSE: Alert and attentive. Orientation times three. Dressed and Groomed: Appropriately. Pleasant and cooperative. Psychomotor Activity: Normal Speech: Normal in tone, quality, and quantity. Mood: Depressed and anxious. Affect: Anxious and worried SI or HI: Admits to suicidal thoughts. Perceptual disturbance: None. Thought Content: No paranoia or other delusional thinking noted. Thought Process: Normal. Cognition: Intact Judgment and Insight: Poor AIMS: Normal. Labs: No new labs. Diagnosis: No change Plan and Recommendations: Continue current Medications. Monitor MS and side effects of medications and adjust medications accordingly. Provide supportive psychotherapy. The patient provided psychoeducation and advised The patient provided Substance abuse counseling. Smoke cessation therapy. The patient is attending muñiz milieu. Medication Consent with explanation of risk/benefits and side effects: Explained and obtained.
[2023-09-29 09:10] VITALS: RESP 18
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
--- NOTE | 2023-09-29 15:56 | P.PN ---
Progress Note - Text Progress Note Date: 09/29/23 Follow-up Mediation Review Chief Complaint: I am feeling better Subjective: The patient less occupied with his medical issues except hearing impairment. The feels that his mood is better because his wound is getting better care. The patient wants a wheel chair at home. This will be covered by Medicare. He wants to continue his narcotic analgesics and wound management following discharge. His case was discussed in morning meeting. If the patient stays stable, he will be discharged on Monday. The patient agrees with the plan. He indicated that he will call his friend and let him know. The patient seemed positive and showed motivation to take care of himself. He is actively participating in treatment plan. He did not report any suicidal or homicidal ideations. The patient did not report any side effects from Leading questions: The patient admitted to mild Depression and Anxiety. Denied SI or HI. Denied symptoms consistent with psychosis Sleep and Appetite: Adequate. Change in medical condition: None Change in medications: No change. Side effects from Medications: None. Objective- MSE: Alert and attentive. Orientation times three. Dressed and Groomed: Appropriately. Pleasant and cooperative. Psychomotor Activity: Normal Speech: Normal in tone, quality, and quantity. Mood: Depressed and anxious- improved. Affect: Appropriate. SI or HI: None noticed. Perceptual disturbance: None. Thought Content: No paranoia or other delusional thinking noted. Thought Process: Normal. Cognition: Intact Judgment and Insight: Fair. AIMS: Normal. Labs: No new labs. Diagnosis: No change Plan and Recommendations: Continue current Medications. Monitor MS and side effects of medications and adjust medications accordingly. Provide supportive psychotherapy. The patient provided psychoeducation and advised The patient provided Substance abuse counseling. Smoke cessation therapy. The patient is attending muñiz milieu. Medication Consent with explanation of risk/benefits and side effects: Explained and obtained.
--- NOTE | 2023-09-30 17:51 | P.PN ---
Progress Note - Text Progress Note Date: 09/30/23 Interval History: patient was seen bedside this morning. He was fixated on his wound infection of his left lower extremity. He discusses this and various somatic concerns at length. Given his numerous concerns regarding this, we will obtain another culture and request medicine to reevaluate as deemed necessary. Patient is also fixated on medications and doses. He requests for his Klonopin to be increased but was informed that this is a big risk given his current ambulation. Patient was agreeable with increasing Cymbalta due to anxiety and depression. He states that otherwise, his mood has been "good ". He endorses participating on the milieu. He reports good sleep at night and fair appetite. He denies other concerns. Patient denies any auditory, visual hallucinations and denies any paranoia or delusions. Patient denies any side effects from the medications and has been compliant with meds. Mental Status Exam: Alert and attentive. Orientation times three. Dressed and Groomed: Appropriately. Initially irritable then pleasant and cooperative. Psychomotor Activity: Normal Speech: Normal in tone, quality, and quantity. Mood: Depressed and anxious- improved. Affect: Appropriate. SI or HI: None noticed. Perceptual disturbance: None. Thought Content: No paranoia or other delusional thinking noted. somatic concerns and focused on pain Thought Process: Normal. Cognition: Intact Judgment and Insight: Fair. Assessment major depressive disorder Alcohol use disorder Nicotine dependence Plan: -Patient continues to meet criteria for inpatient psychiatric admission for symptom stabilization and safety. -Medications: increase Cymbalta to 120 mg daily for mood, continue Klonopin 0.5 mg twice a day, melatonin 3 mg bedtime, Seroquel 50 mg 3 times a day for anxiety augmentation with consideration to lower in the future, and trazodone 100 mg at bedtime for sleep -Obtain BC again and IM on board -SW on board for discharge planning. Encouraged the patient to participate in [employer].
[2023-10-01] MEDS ORDERED: DULoxetine HCL 60 MG CAPSULE.DR PO ONE (09:00)
[2023-10-01] MEDS: DULoxetine HCL 20 MG CAPSULE.DR PO SCH (09:19)
--- NOTE | 2023-10-01 15:06 | P.PN ---
Progress Note - Text Progress Note Date: 10/01/23 Interval History: Patient was seen in TV room and was agreeable with speaking with this provider in the room. He appears to be calmer today and states that his mood is "good". He has noticed that the increased dose of Cymbalta has been helpful and also reports that he finds Seroquel to be helpful. However, he had difficulty sleeping at night and said that he woke up every 2 hours. He was agreeable with the dosage increase in Seroquel at bedtime. He is hopeful to be discharged tomorrow. He reports fair appetite. He denies other concerns. Patient denies any auditory, visual hallucinations and denies any paranoia or delusions. Patient denies any side effects from the medications and has been compliant with meds. Vital Signs Temp 98.0 F 09/29/23 06:57 Pulse 78 10/01/23 09:17 Resp 18 09/29/23 09:09 BP 118/64 10/01/23 09:17 Pulse Ox 98 09/29/23 09:09 FiO2 Mental Status Exam: Alert and attentive. Orientation times three. Dressed and Groomed: Appropriately. Initially irritable then pleasant and cooperative. Psychomotor Activity: Normal Speech: Normal in tone, quality, and quantity. Mood: Depressed and anxious- improved. Affect: Appropriate. SI or HI: None noticed. Perceptual disturbance: None. Thought Content: No paranoia or other delusional thinking noted. somatic concerns and focused on pain Thought Process: Normal. Cognition: Intact Judgment and Insight: Fair Assessment major depressive disorder Alcohol use disorder Nicotine dependence Plan: -Patient continues to meet criteria for inpatient psychiatric admission for symptom stabilization and safety. -Medications: Cymbalta 120 mg daily for mood, continue Klonopin 0.5 mg twice a day, melatonin 3 mg bedtime, increase Seroquel 50 mg 3 times a day for anxiety augmentation + 50 mg qHS for sleep, and trazodone 100 mg at bedtime for sleep -Awaiting BC results and IM on board -SW on board for discharge planning. Encouraged the patient to participate in milieu.
[2023-10-01] MEDS: QUEtiapine 50 MG TAB PO SCH (19:58)
[2023-10-02] MEDS: DULoxetine HCL 60 MG CAPSULE.DR PO SCH (09:09)
[2023-10-02 11:41] VITALS: BP 162/89; PULSE 76; TEMP 97.4
[2023-10-02 14:01] VITALS: BMI 27.0
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
== END 2023-10-02 16:50 | disposition home or self-care (01) | DRG 885 ==
LOC: 3MHU 18:16
PROVIDERS: ADMIT Psychiatry & Neurology Psychiatry; ATTEND Psychiatry & Neurology Psychiatry
DX: F33.2 Major depressive disorder, recurrent severe without psychotic features (principal); I87.332 Chronic venous hypertension (idiopathic) with ulcer and inflammation of left lower extremity; L97.922 Non-pressure chronic ulcer of unspecified part of left lower leg with fat layer exposed; L03.116 Cellulitis of left lower limb; R45.851 Suicidal ideations; T86.891 Other transplanted tissue failure; M86.662 Other chronic osteomyelitis, left tibia and fibula; F43.10 Post-traumatic stress disorder, unspecified; F41.9 Anxiety disorder, unspecified; G89.29 Other chronic pain; H91.90 Unspecified hearing loss, unspecified ear; F17.210 Nicotine dependence, cigarettes, uncomplicated; I87.321 Chronic venous hypertension (idiopathic) with inflammation of right lower extremity; J44.89 Other specified chronic obstructive pulmonary disease; I25.2 Old myocardial infarction; V89.2XXS Person injured in unspecified motor-vehicle accident, traffic, sequela; S09.90XS Unspecified injury of head, sequela; Y92.410 Unspecified street and highway as the place of occurrence of the external cause; Z79.51 Long term (current) use of inhaled steroids; Z79.899 Other long term (current) drug therapy; Z86.14 Personal history of Methicillin resistant Staphylococcus aureus infection; M19.90 Unspecified osteoarthritis, unspecified site; R41.3 Other amnesia; G47.9 Sleep disorder, unspecified; Z91.81 History of falling; Z63.5 Disruption of family by separation and divorce; Z88.6 Allergy status to analgesic agent; Z88.1 Allergy status to other antibiotic agents; Z88.5 Allergy status to narcotic agent; Z88.0 Allergy status to penicillin; Z88.2 Allergy status to sulfonamides
CPT/HCPCS: 80048; 80053; 85025; 87070; 87205

== ENCOUNTER 2024-01-05 14:31 | Emergency (ER) | payer MEDICARE, OTHER ==
[2024-01-05 14:50] VITALS: TEMP 97.8
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
--- NOTE | 2024-01-05 15:55 | XR ---
EXAMINATION TYPE: XR chest 2V DATE OF EXAM: 01/05/2024 COMPARISON: 09/02/2023 HISTORY: Chest pain TECHNIQUE: Frontal and lateral views of the chest are obtained. FINDINGS: There is no focal air space opacity, pleural effusion, or pneumothorax seen. The cardiac silhouette size is within normal limits. The osseous structures are intact. IMPRESSION: No acute cardiopulmonary process. [facility], Workstation: PATI 01/05/2024 3:53 PM
[2024-01-05] MEDS ORDERED: NITROGLYCERIN SL TABS 0.4 MG TAB SUBLINGUAL PRN (16:35)
[2024-01-05] MEDS: ASPIRIN 81 MG PO STA (17:00)
[2024-01-05 18:36] LABS: INR 1.4 (<1.2); Prothrombin Time 14.9 sec (10.0-12.5)
[2024-01-05 18:43] LABS: Basophils % (A) 0 %; Eosinophils % (A) 0 %; Lymphocytes # (A) 1.8 k/uL (1.0-4.8); Lymphocytes % (A) 12 %; MCH 33.9 pg (25.0-35.0); MCHC 33.5 g/dL (31.0-37.0); MCV 101.2 fL (80.0-100.0); Mean Platelet Volume 7.9; Monocytes # (A) 0.7 k/uL (0-1.0); Monocytes % (A) 5 %; Neutrophils # (A) 12.9 k/uL (1.3-7.7); Neutrophils % (A) 82 %; Platelet Count 283 k/uL (150-450); RBC 5.67 m/uL (4.30-5.90); RDW 12.9 % (11.5-15.5); WBC 15.6 k/uL (3.8-10.6)
[2024-01-05 18:44] LABS: ALT 37 U/L (4-49); African American GFR (CKD) >90 (>60 ml/min/1.73 sqM); Alcohol <10 mg/dL; Anion Gap 11 mmol/L; Blood Urea Nitrogen 10 mg/dL (9-20); Calcium 10.7 mg/dL (8.4-10.2); Carbon Dioxide 22 mmol/L (22-30); Chloride 98 mmol/L (98-107); Glucose 87 mg/dL (74-99); Non-African American GFR(CKD) >90 (>60 ml/min/1.73 sqM); Sodium 131 mmol/L (137-145); Total Bilirubin 1.2 mg/dL (0.2-1.3)
[2024-01-05 18:51] LABS: HCT 57.3 % (39.0-53.0); HGB 19.2 gm/dL (13.0-17.5)
[2024-01-05 18:53] LABS: AST 65 U/L (17-59); Albumin 4.4 g/dL (3.5-5.0); Alkaline Phosphatase 94 U/L (38-126); Magnesium 1.6 mg/dL (1.6-2.3); Potassium 4.1 mmol/L (3.5-5.1); Total Protein 7.7 g/dL (6.3-8.2)
[2024-01-05 19:13] LABS: Partial Thromboplastin Time 27.2 sec (22.0-30.0)
[2024-01-05] MEDS: HYDROmorphone 1 MG/ML 1 ML SYRINGE IM STA (23:14)
[2024-01-06 00:14] VITALS: PULSE 94
[2024-01-06 01:52] VITALS: BP 146/87; RESP 16
[2024-01-06] MEDS ORDERED: ASPIRIN 325 MG TAB PO SCH (09:00)
== END 2024-01-06 00:45 | disposition home or self-care (01) ==
LOC: EC 14:31
DX: R07.9 Chest pain, unspecified
CPT/HCPCS: 36415; 71046; 80053; 80320; 83735; 84484; 85025; 85610; 85730; 93005; 96372; 99285

== ENCOUNTER 2024-01-20 18:33 | Inpatient (IN) | payer MEDICARE, OTHER ==
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
[2024-01-20 19:07] LABS: Glucose,Whole Blood 125 mg/dL (70-110)
[2024-01-20 19:31] LABS: Appearance,Urine Clear (Clear); Bilirubin,Urine Negative (Negative); Blood,Urine Negative (Negative); Color,Urine Yellow; Glucose,Urine (UA) Negative (Negative); Ketones,Urine Negative (Negative); Leukocyte Esterase,Urine Negative (Negative); Nitrite,Urine Negative (Negative); Protein,Urine Trace (Negative); Specific Gravity,Urine 1.017 (1.001-1.035); Urobilinogen,Urine <2.0 mg/dL (<2.0)
[2024-01-20 19:33] LABS: Basophils # (A) 0.1 k/uL (0-0.2); Basophils % (A) 1 %; Eosinophils % (A) 0 %; Lymphocytes # (A) 0.8 k/uL (1.0-4.8); Lymphocytes % (A) 5 %; MCH 33.6 pg (25.0-35.0); MCHC 32.9 g/dL (31.0-37.0); MCV 102.2 fL (80.0-100.0); Macrocytosis Slight; Mean Platelet Volume 8.9; Monocytes # (A) 0.9 k/uL (0-1.0); Monocytes % (A) 6 %; Neutrophils # (A) 12.8 k/uL (1.3-7.7); Neutrophils % (A) 87 %; Platelet Count 288 k/uL (150-450); WBC 14.8 k/uL (3.8-10.6)
[2024-01-20 19:47] LABS: ALT 100 U/L (4-49); AST 85 U/L (17-59); Acetaminophen <10.0 ug/mL; African American GFR (CKD) 47 (>60 ml/min/1.73 sqM); Albumin 5.6 g/dL (3.5-5.0); Alcohol <10 mg/dL; Alkaline Phosphatase 137 U/L (38-126); Anion Gap 24 mmol/L; Blood Urea Nitrogen 74 mg/dL (9-20); Calcium 11.8 mg/dL (8.4-10.2); Carbon Dioxide 21 mmol/L (22-30); Chloride 111 mmol/L (98-107); Glucose 137 mg/dL (74-99); Non-African American GFR(CKD) 40 (>60 ml/min/1.73 sqM); Potassium 4.1 mmol/L (3.5-5.1); Salicylate <1.0 mg/dL; Sodium 156 mmol/L (137-145); Total Bilirubin 3.6 mg/dL (0.2-1.3)
[2024-01-20 19:54] LABS: Total Protein 10.6 g/dL (6.3-8.2)
[2024-01-20] MEDS: SODIUM CHLORIDE 0.9% 1,000 ML IV STA ×2 (20:10→21:14)
[2024-01-20 20:26] LABS: RBC 7.38 m/uL (4.30-5.90)
[2024-01-20 20:30] LABS: HGB 25.2 gm/dL (13.0-17.5)
[2024-01-20 20:31] LABS: HCT 78.6 % (39.0-53.0)
--- NOTE | 2024-01-20 20:42 | XR ---
EXAMINATION TYPE: XR chest 2V DATE OF EXAM: 01/20/2024 COMPARISON: 01/05/2004 INDICATION: Altered mental status TECHNIQUE: Frontal and lateral views of the chest are obtained. FINDINGS: The heart size is normal. The pulmonary vasculature is normal. The lungs are clear. IMPRESSION: 1. No acute pulmonary process. [facility], Workstation: [facility], 01/20/2024 8:40 PM
--- NOTE | 2024-01-20 20:56 | CT ---
EXAMINATION TYPE: CT brain patrick wo con DATE OF EXAM: 01/20/2024 COMPARISON: None HISTORY: AMS CT DLP: 1356 mGycm, Automated exposure control for dose reduction was used. CONTRAST: Patient injected with 0 mL of Isovue 300. CT of the brain is performed utilizing 3 mm thick sections through the posterior fossa and 3 mm thick sections through the remaining calvarium. Study is performed within 24 hours of arrival to the hospital. No abnormal hyperdensity is present to suggest an acute intracranial hemorrhage. No mass lesion is evident. No acute infarcts are evident. Ventricles and sulci are mildly prominent for the patient age. Paranasal sinuses and mastoid air cells within the [id number] are clear. IMPRESSIONS: 1. No acute intracranial process. Follow-up MRI can be performed as clinically indicated. 2. Age-related atrophy. CT cervical spine. COMPARISON: None CT of the cervical spine is performed in the axial plane at 2 mm thick sections. Reconstructed image s in the coronal, and sagittal plane are reviewed on the computer. No acute fractures are evident. Vertebral body alignment is normal. Disc space narrowing is present greatest at C4-5 C5-6. Anterior vertebral body spurring is present C4 -C7. Some posterior endplate spurring is present C5-6 Vertebral body heights are preserved. No spinal canal stenosis is evident. Uncovertebral joint hypertrophy has moderate left C7-T1 foraminal stenosis and bilateral foraminal na rrowing is present C5-6 and C4-5 IMPRESSION: 1. No acute osseous abnormality cervical spine. 2. Degenerative disc changes and foraminal narrowing discussed above [facility], Workstation: [facility], 01/20/2024 8:54 PM
[2024-01-20] MEDS ORDERED: NALOXONE 0.4 MG/ML 1 ML VIAL IV PRN (20:57)
[2024-01-20 21:03] LABS: Amphetamine Screen,Urine Not Detected (NotDetected); Barbiturate Screen,Urine Not Detected (NotDetected); Benzodiazepines Screen,Urine Not Detected (NotDetected); Cocaine Screen,Urine Not Detected (NotDetected); Methadone Screen, Urine Not Detected (NotDetected); Opiate Screen,Urine Not Detected (NotDetected); Oxycodone Screen, Urine Not Detected (NotDetected); Phencyclidine Screen,Urine Not Detected (NotDetected); Tricyclic Antidepressant,Urine Not Detected (NotDetected); Urn Cannabinoid Scrn Detected (NotDetected)
[2024-01-20] MEDS: SODIUM CHLORIDE 0.9% 1,000 ML IV SCH (21:16)
[2024-01-20] MEDS: DEXTROSE 5% IN WATER 1,000 ML IV ONE (21:33)
[2024-01-20 23:37] LABS: INR 1.2 (<1.2); Partial Thromboplastin Time 21.4 sec (22.0-30.0); Prothrombin Time 12.7 sec (10.0-12.5)
[2024-01-21 05:40] LABS: ALT 68 U/L (4-49); AST 72 U/L (17-59); African American GFR (CKD) >90 (>60 ml/min/1.73 sqM); Alkaline Phosphatase 85 U/L (38-126); Anion Gap 11 mmol/L; Blood Urea Nitrogen 69 mg/dL (9-20); Calcium 9.7 mg/dL (8.4-10.2); Carbon Dioxide 22 mmol/L (22-30); Chloride 122 mmol/L (98-107); Creatine Kinase 294 U/L (55-170); Glucose 131 mg/dL (74-99); Non-African American GFR(CKD) 83 (>60 ml/min/1.73 sqM); Sodium 155 mmol/L (137-145); Total Bilirubin 2.7 mg/dL (0.2-1.3); Total Protein 7.2 g/dL (6.3-8.2)
[2024-01-21 05:44] LABS: Basophils % (A) 0 %; Eosinophils # (A) 0.1 k/uL (0-0.7); Eosinophils % (A) 0 %; Lymphocytes % (A) 6 %; MCH 34.6 pg (25.0-35.0); MCHC 34.4 g/dL (31.0-37.0); MCV 100.5 fL (80.0-100.0); Mean Platelet Volume 9.2; Monocytes # (A) 1.3 k/uL (0-1.0); Monocytes % (A) 8 %; Neutrophils # (A) 13.8 k/uL (1.3-7.7); Neutrophils % (A) 84 %; Platelet Count 217 k/uL (150-450); RBC 6.08 m/uL (4.30-5.90); RDW 13.5 % (11.5-15.5); WBC 16.4 k/uL (3.8-10.6)
[2024-01-21 05:48] LABS: Potassium 3.4 mmol/L (3.5-5.1)
[2024-01-21 06:22] LABS: HCT 61.1 % (39.0-53.0)
[2024-01-21] MEDS ORDERED: Potassium Replacement Protocol 1 EACH MISC MISCELLANE PRN ×2 (06:50→08:10)
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
[2024-01-21] MEDS: PANTOPRAZOLE 40 MG/10 ML VIAL IV SCH (08:45)
[2024-01-21] MEDS: POTASSIUM CHLORIDE 10 MEQ in WATER FOR INJECTION 1 100ML.BAG IVPB SCH (08:46)
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
[2024-01-21] MEDS ORDERED: HEPARIN SODIUM 1,000 UN/ML (10ML VL) IV PRN (11:19)
[2024-01-21] MEDS: HEPARIN SOD,PORK IN 0.45% NACL 25,000 UNIT in 0.45% NACL 1 250ML.BAG IV SCH (13:03)
[2024-01-21] MEDS: HEPARIN SODIUM 1,000 UN/ML (10ML VL) IV ONE (13:04)
[2024-01-21 13:11] LABS: Basophils % (A) 0 %; Eosinophils # (A) 0.1 k/uL (0-0.7); Eosinophils % (A) 1 %; Lymphocytes # (A) 1.3 k/uL (1.0-4.8); Lymphocytes % (A) 10 %; MCH 33.2 pg (25.0-35.0); MCHC 32.5 g/dL (31.0-37.0); MCV 101.9 fL (80.0-100.0); Macrocytosis Slight; Mean Platelet Volume 8.7; Monocytes % (A) 7 %; Neutrophils # (A) 10.7 k/uL (1.3-7.7); Neutrophils % (A) 81 %; Platelet Count 238 k/uL (150-450); RBC 5.99 m/uL (4.30-5.90); WBC 13.3 k/uL (3.8-10.6)
[2024-01-21 13:15] LABS: HCT 61.1 % (39.0-53.0)
[2024-01-21 13:18] LABS: HGB 19.9 gm/dL (13.0-17.5)
[2024-01-21 13:21] LABS: Prothrombin Time 13.7 sec (10.0-12.5)
[2024-01-21 13:47] LABS: INR 1.3 (<1.2); Partial Thromboplastin Time 23.9 sec (22.0-30.0)
[2024-01-21] MEDS: ASPIRIN 81 MG PO SCH (15:16)
[2024-01-21] MEDS: METOPROLOL SUCCINATE (ER) 25 MG TAB.ER.24H PO SCH (15:16)
[2024-01-21] MEDS: ATORVASTATIN 40 MG TAB PO SCH (20:04)
[2024-01-22 00:04] LABS: Glucose,Whole Blood 80 mg/dL (70-110)
[2024-01-22 06:30] LABS: Basophils % (A) 0 %; Eosinophils # (A) 0.1 k/uL (0-0.7); Eosinophils % (A) 0 %; Lymphocytes # (A) 1.9 k/uL (1.0-4.8); Lymphocytes % (A) 17 %; MCH 35.2 pg (25.0-35.0); MCV 103.6 fL (80.0-100.0); Macrocytosis Slight; Mean Platelet Volume 9.1; Monocytes # (A) 0.9 k/uL (0-1.0); Monocytes % (A) 8 %; Neutrophils # (A) 8.3 k/uL (1.3-7.7); Neutrophils % (A) 73 %; Platelet Count 223 k/uL (150-450); RBC 5.61 m/uL (4.30-5.90); RDW 13.1 % (11.5-15.5); WBC 11.3 k/uL (3.8-10.6)
[2024-01-22 06:35] LABS: HCT 58.1 % (39.0-53.0); HGB 19.7 gm/dL (13.0-17.5)
[2024-01-22 06:46] LABS: INR 1.3 (<1.2); Prothrombin Time 14.1 sec (10.0-12.5)
[2024-01-22 06:52] LABS: Glucose,Whole Blood 75 mg/dL (70-110)
[2024-01-22 07:02] LABS: Partial Thromboplastin Time 21.1 sec (22.0-30.0)
--- NOTE | 2024-01-22 07:36 | P.PN ---
Subjective This is a pleasant 68 years old male with past medical history of psychosis and multiple admission for suicidal ideation, hypertension, osteoarthritis Patient brought to the emergency room because he was found by his roommate on the floor, hard to wake up. When he came to emergency room he was answering questions but looks like he is continued to be confused Patient currently opens eyes and follows simple commands but not all every command. Also he answers some questions. However he looks confused significantly. He is disoriented to time place and person. He has no insight. But he denies any pain. No headache. No dizziness. Moves arms and legs. No tingling. Patient on admission was tachycardic and tachypneic but afebrile He had mild leukocytosis, high hemoglobin at 25 and sodium 156 and creatinine 1.7. Liver enzymes moderately elevated Lactic acid 4.0 Troponin is elevated 0.09 Urine drug screen is negative Serum alcohol less than 10. CT of the head and neck is negative for acute process for either side Chest x-ray is negative for acute process and I reviewed the chest x-rays and agree EKG showing sinus tachycardia at [address] depression 01/21 Patient remains confused, he open eyes to verbal stimuli, he can tell me his name and then he goes back to sleep No abnormal movement Patient sodium 1 significantly elevated at 155, he was given D5W at 75 mL/h, repeat sodium this morning is still pending Patient looks dehydrated. Seasonal Sales Associate evaluated the patient for higher troponin which is thought secon torsten to dehydration however he has some ST depression in the lateral leads, counter installer recommended heparin drip x 48 hours as well as metoprolol and Lipitor which are ordered. Yesterday I discussed the case with the neurologist on-call, he recommended to hold on consult since the patient has severe metabolic abnormality. This morning patient remains confused with no significant improvement therefore we are going to reconsult neurology service. He has elevated hemoglobin and hematocrit, most likely secondary to dehydration, keep following levels till sodium level corrected and then reassess. Abdomen looks soft, patient denies abdominal pain or chest pain. Active Medications Generic Name Dose Route Start Last Admin Trade Name Freq PRN Reason Stop Dose Admin Aspirin 81 mg 01/21/24 11:30 01/21/24 15:16 Aspirin 81 Mg PO Not Given DAILY [facility] Atorvastatin Calcium 40 mg 01/21/24 21:00 01/21/24 20:04 Atorvastatin 40 Mg Tab PO Not Given HS [facility] Heparin Sodium (Porcine) 0 unit 01/21/24 11:19 Heparin Sodium 1,000 Un/Ml (10ml Vl) IV PER PROTOCOL PRN Low PTT Protocol Heparin Sodium/Sodium Chloride 250 mls @ 10 mls/hr 01/21/24 11:30 01/21/24 17:48 25,000 unit/ Sodium Chloride IV 10.02 units/kg/hr .Q24H [facility] 10 mls/hr Titration Protocol 10.021 UNITS/KG/HR Dextrose/Water 1,000 mls @ 100 mls/hr 01/22/24 07:30 Dextrose 5%-Water Iv Soln IV .Q10H [facility] Metoprolol Succinate 25 mg 01/21/24 11:30 01/21/24 15:16 Metoprolol Succinate (Er) 25 Mg Tab.Er.24h PO Not Given DAILY [facility] Miscellaneous Information 1 each 01/21/24 06:50 Potassium Replacement Protocol 1 Each Misc MISCELLANE DAILY PRN Per Protocol Protocol Miscellaneous Information 1 each 01/21/24 08:10 Potassium Replacement Protocol 1 Each Misc MISCELLANE DAILY PRN Per Protocol Protocol Naloxone HCl 0.2 mg 01/20/24 20:57 Naloxone 0.4 Mg/Ml 1 Ml Vial IV Q2M PRN Opioid Reversal Pantoprazole Sodium 40 mg 01/21/24 09:00 01/21/24 08:45 Pantoprazole 40 Mg/10 Ml Vial IV 40 mg DAILY [facility] Administration Objective - Vital Signs Vital signs: Vital Signs Temp 97.6 F 01/21/24 23:57 Pulse 101 H 01/22/24 04:00 Resp 18 01/22/24 04:00 BP 131/88 01/22/24 04:00 Pulse Ox 99 01/22/24 04:00 FiO2 Intake & Output 01/21/24 01/22/24 01/22/24 18:59 06:59 18:59 Intake Total 47.5 Output Total 1999 Balance -1952.5 -400 Weight 99.79 kg 54 kg Intake: Intake, IV Titration 47.5 Amount Heparin Sod,Pork in 0.45% 47.5 NaCl 25,000 unit In 0.45 % NaCl 1 250ml.bag @ 10. 021 UNITS/KG/HR 10 mls/hr IV .Q24H [facility] Rx#: [id number] Oral 0 Output: Urine 2000 400 Other: Voiding Method Indwelling Catheter Indwelling Catheter # Bowel Movements 0 - Labs CBC & Chem 7: 01/22/24 05:45 01/21/24 05:15 Labs: Abnormal Lab Results - Last 24 Hours (Table) 01/21/24 01/21/24 01/21/24 Range/Units 12:54 12:54 17:04 WBC 13.3 H (3.8-10.6) k/uL RBC 5.99 H (4.30-5.90) m/uL Hgb 19.9 H* (13.0-17.5) gm/dL Hct 61.1 H* (39.0-53.0) % MCV 101.9 H (80.0-100.0) fL MCH (25.0-35.0) pg Neutrophils # 10.7 H (1.3-7.7) k/uL PT 13.7 H (10.0-12.5) sec INR 1.3 H (<1.2) APTT 61.6 H (22.0-30.0) sec 01/22/24 01/22/24 Range/Units 05:45 05:45 WBC 11.3 H (3.8-10.6) k/uL RBC (4.30-5.90) m/uL Hgb 19.7 H* (13.0-17.5) gm/dL Hct 58.1 H* (39.0-53.0) % MCV 103.6 H (80.0-100.0) fL MCH 35.2 H (25.0-35.0) pg Neutrophils # 8.3 H (1.3-7.7) k/uL PT 14.1 H (10.0-12.5) sec INR 1.3 H (<1.2) APTT 21.1 L (22.0-30.0) sec Assessment and Plan Assessment: Metabolic/toxic encephalopathy Hypernatremia Non-STEMI with elevated troponin with some EKG changes but patient denies chest pain. Acute kidney injury, improving History of depression, psychosis and suicidal ideation Severe dehydration and hypovolemia History of chronic left leg wound, currently wound is closed, no evidence of cellulitis but mild deformity in the muscles of the left leg Elevated lactic acid Plan: Continue with IV fluid, increase D5W to 100 mL/h, we might increase it more based on c sodium level today Monitor creatinine and sodium level Continue with heparin drip, metoprolol and statin per counter installer. Follow-up echocardiogram Monitor hemoglobin and WBC. Neurology and cardiology team consultation Labs and medication were reviewed.. Continue same treatment. Continue with symptomatic treatment. Resume home medication. Monitor labs and vitals. DVT and GI prophylaxis. Further recommendations as per clinical course of the patient DVT prophylaxis: heparin GI Prophylaxis: Pepcid PT/OT: Pending Prognosis is guarded
[2024-01-22 08:02] LABS: African American GFR (CKD) >90 (>60 ml/min/1.73 sqM); Anion Gap 10 mmol/L; Blood Urea Nitrogen 52 mg/dL (9-20); Calcium 9.8 mg/dL (8.4-10.2); Carbon Dioxide 24 mmol/L (22-30); Chloride 125 mmol/L (98-107); Glucose 84 mg/dL (74-99); Non-African American GFR(CKD) 88 (>60 ml/min/1.73 sqM); Potassium 3.5 mmol/L (3.5-5.1); Sodium 159 mmol/L (137-145)
[2024-01-22] MEDS ORDERED: ZINC OXIDE PASTE (Z-GUARD) 1 APPLIC TOPICAL PRN (09:17)
[2024-01-22] MEDS: DEXTROSE 5% IN WATER 1,000 ML IV SCH (09:45)
[2024-01-22 11:30] LABS: Glucose,Whole Blood 81 mg/dL (70-110)
[2024-01-22 11:58] LABS: ABG Base Excess 0.6 mmol/L; ABG HCO3 23 mmol/L (21-25); ABG Oxygen Saturation 98.9 % (94-97); ABG PCO2 30 mmHg (35-45); ABG PH 7.48 (7.35-7.45); ABG PO2 127 mmHg (83-108); ABG TCO2 24 mmol/L (19-24); Allen Test Performed? Yes
[2024-01-22 12:28] LABS: Glucose,Whole Blood 91 mg/dL (70-110)
--- NOTE | 2024-01-22 13:03 | P.PN ---
Subjective HISTORY OF PRESENT ILLNESS: 68-year-old with PMH of psychosis, multiple admissions because of suicidal ideation, hypertension and osteoarthritis. He was brought to the hospital by his roommate when patient was found on floor and was difficult to wake up. On evaluation in the ER he was severely confused. At the time of evaluation at bedside, he is very drowsy and confused and the history is very limited. Most of the history is obtained from medical charts. Patient is able to open eyes and follow one-step commands but is not sustaining it. He is very drowsy and goes back to the sleep. He denies any chest pain chest pressure. He denies any palpitation Labs shows hemoglobin 25 significantly elevated, WBC 14, INR 1.2, creatinine 1.7, sodium 156, lactate 4, troponin elevated at 0.09, 0.1, CK elevated at 294. Urine positive for marijuana EKG showed sinus tachycardia with diffuse ST depressions in inferolateral leads. Heart rate 128 bpm Chest x-ray does not show any signs of pulmonary congestion or consolidation CT head did not show any acute intracranial process Echo from August 2023 shows EF 50 to 55%, moderately increased septal wall thickness, RV dilatation, dilated aortic root at 4 cm 01/22/2024 Patient examined this morning the bedside. Patient is lethargic. No complaints of chest pain or shortness of breath. He remains on IV heparin. 2D echo remains pending. Sodium remains elevated at 159 today. PHYSICAL EXAM: VITAL SIGNS: Reviewed. GENERAL: Well-developed in no acute distress. NECK: Supple. No JVD or thyromegaly LUNGS: Respirations even and unlabored. Lungs essentially clear to auscultation bilaterally. HEART: Regular rate and rhythm. S1 and S2 heard. EXTREMITIES: Normal range of motion. No clubbing or cyanosis. Peripheral pulses intact. No lower extremity edema ASSESSMENT: Altered mental status Hypernatremia, 159 Elevated troponin, likely type II NSTEMI in setting of severe dehydration and kidney injury Elevated lactate due to severe dehydration Metabolic encephalopathy Marijuana abuse History of suicidal ideations PLAN: 2D echo ordered. Await results. Continue IV heparin for additional 24 hours Continue current cardiac medications No plans for cardiac catheterization at this time Recommend nephrology consultation secondary to hypernatremia Neurology has been consulted. Await evaluation recommendations. Further recommendations pending patient course Nurse practitioner note has been reviewed by physician. Signing provider agrees with the documented findings, assessment, and plan of care documented by SENIOR HEALTH CONSULTANT as a scribe. Objective - Vital Signs Vital signs: Vital Signs Temp 100.0 F H 01/22/24 12:30 Pulse 112 H 01/22/24 12:30 Resp 20 01/22/24 12:30 BP 137/105 01/22/24 12:30 Pulse Ox 99 01/22/24 12:30 FiO2 Intake & Output 01/21/24 01/22/24 01/22/24 18:59 06:59 18:59 Intake Total 47.5 150.833 Output Total 1999 400 Balance -1952.5 -400 150.833 Weight 99.79 kg 54 kg Intake: Intake, IV Titration 47.5 150.833 Amount Heparin Sod,Pork in 0.45% 47.5 150.833 NaCl 25,000 unit In 0.45 % NaCl 1 250ml.bag @ 10. 021 UNITS/KG/HR 10 mls/hr IV .Q24H [facility] Rx#: [id number] Oral 0 Output: Urine 1999 400 Other: Voiding Method Indwelling Catheter Indwelling Catheter Indwelling Catheter # Bowel Movements 0 - Labs CBC & Chem 7: 01/22/24 05:45 01/22/24 06:00 Labs: Abnormal Lab Results - Last 24 Hours (Table) 01/21/24 01/21/24 01/21/24 Range/Units 12:54 12:54 17:04 WBC 13.3 H (3.8-10.6) k/uL RBC 5.99 H (4.30-5.90) m/uL Hgb 19.9 H* (13.0-17.5) gm/dL Hct 61.1 H* (39.0-53.0) % MCV 101.9 H (80.0-100.0) fL MCH (25.0-35.0) pg Neutrophils # 10.7 H (1.3-7.7) k/uL PT 13.7 H (10.0-12.5) sec INR 1.3 H (<1.2) APTT 61.6 H (22.0-30.0) sec ABG pH (7.35-7.45) ABG pCO2 (35-45) mmHg ABG pO2 (83-108) mmHg ABG O2 Saturation (94-97) % Hemoglobin (13.0-17.5) gm/dL Sodium (137-145) mmol/L Chloride (98-107) mmol/L BUN (9-20) mg/dL 01/22/24 01/22/24 01/22/24 Range/Units 05:45 05:45 06:00 WBC 11.3 H (3.8-10.6) k/uL RBC (4.30-5.90) m/uL Hgb 19.7 H* (13.0-17.5) gm/dL Hct 58.1 H* (39.0-53.0) % MCV 103.6 H (80.0-100.0) fL MCH 35.2 H (25.0-35.0) pg Neutrophils # 8.3 H (1.3-7.7) k/uL PT 14.1 H (10.0-12.5) sec INR 1.3 H (<1.2) APTT 21.1 L (22.0-30.0) sec ABG pH (7.35-7.45) ABG pCO2 (35-45) mmHg ABG pO2 (83-108) mmHg ABG O2 Saturation (94-97) % Hemoglobin (13.0-17.5) gm/dL Sodium 159 H (137-145) mmol/L Chloride 125 H (98-107) mmol/L BUN 52 H (9-20) mg/dL 01/22/24 Range/Units 11:52 WBC (3.8-10.6) k/uL RBC (4.30-5.90) m/uL Hgb (13.0-17.5) gm/dL Hct (39.0-53.0) % MCV (80.0-100.0) fL MCH (25.0-35.0) pg Neutrophils # (1.3-7.7) k/uL PT (10.0-12.5) sec INR (<1.2) APTT (22.0-30.0) sec ABG pH 7.48 H (7.35-7.45) ABG pCO2 30 L (35-45) mmHg ABG pO2 127 H (83-108) mmHg ABG O2 Saturation 98.9 H (94-97) % Hemoglobin 20.4 H (13.0-17.5) gm/dL Sodium (137-145) mmol/L Chloride (98-107) mmol/L BUN (9-20) mg/dL
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
--- NOTE | 2024-01-22 14:02 | CT ---
EXAMINATION TYPE: CT brain wo con CT DLP: 1237.4 mGycm, Automated exposure control for dose reduction was used. DATE OF EXAM: 01/22/2024 1:57 PM COMPARISON: CT brain C-spine 01/20/2024, 01/02/2021 CLINICAL INDICATION:Male, 68 years old with history of acute mental status changes, acute mental stat us changes TECHNIQUE: Brain: Multiple axial CT images of the brain were obtained without IV contrast. . Coronal and sagitta l reformats reviewed. FINDINGS: Brain: Extra-axial spaces: No abnormal extra-axial fluid collections. Ventricular system: Within normal limits Cerebral parenchyma: No acute intraparenchymal hemorrhage or mass effect. The smart-white junction is well differentiated. Scattered hypoattenuating areas are seen within the periventricular white matte r. Cerebellum: Unremarkable. Mass effect: No evidence of midline shift. Intracranial vasculature: Atherosclerotic calcifications of the intracranial vessels. Soft tissues: Normal. Calvarium/osseous structures: No depressed skull fracture. Paranasal sinuses and mastoid air cells: Clear Visualized orbits: Orbital contents are intact. IMPRESSION: 1. No acute intracranial process. 2. Nonspecific white matter changes, likely secondary to chronic small vessel ischemic disease. [facility], , 01/22/2024 2:00 PM
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
[2024-01-22] MEDS ORDERED: NOREPINEPHRINE 4 MG in SODIUM CHLORIDE 0.9% 250 ML IV SCH (15:45)
[2024-01-22] MEDS: cloNIDine 0.1 MG/24HR PATCH TRANSDERM SCH (18:31)
[2024-01-23] MEDS: HEPARIN SODIUM,PORCINE 5,000 UNIT/ML 1 ML VIAL SQ SCH (00:56)
[2024-01-23 06:51] LABS: Basophils % (A) 0 %; Eosinophils # (A) 0.1 k/uL (0-0.7); Eosinophils % (A) 1 %; HGB 18.9 gm/dL (13.0-17.5); Lymphocytes # (A) 1.2 k/uL (1.0-4.8); Lymphocytes % (A) 9 %; MCH 34.3 pg (25.0-35.0); MCHC 33.7 g/dL (31.0-37.0); MCV 101.9 fL (80.0-100.0); Macrocytosis Slight; Mean Platelet Volume 9.8; Monocytes # (A) 0.6 k/uL (0-1.0); Monocytes % (A) 5 %; Neutrophils # (A) 10.7 k/uL (1.3-7.7); Neutrophils % (A) 84 %; Platelet Count 146 k/uL (150-450); RDW 13.3 % (11.5-15.5); WBC 12.7 k/uL (3.8-10.6)
[2024-01-23 07:02] LABS: African American GFR (CKD) >90 (>60 ml/min/1.73 sqM); Anion Gap 11 mmol/L; Blood Urea Nitrogen 34 mg/dL (9-20); Calcium 9.3 mg/dL (8.4-10.2); Carbon Dioxide 21 mmol/L (22-30); Chloride 120 mmol/L (98-107); Glucose 157 mg/dL (74-99); Non-African American GFR(CKD) >90 (>60 ml/min/1.73 sqM); Potassium 3.2 mmol/L (3.5-5.1); Sodium 152 mmol/L (137-145)
[2024-01-23] MEDS: POTASSIUM CHLORIDE 10 MEQ in WATER FOR INJECTION 1 100ML.BAG IVPB SCH (08:40)
--- NOTE | 2024-01-23 10:51 | P.PN ---
Subjective This is a pleasant 68 years old male with past medical history of psychosis and multiple admission for suicidal ideation, hypertension, osteoarthritis Patient brought to the emergency room because he was found by his roommate on the floor, hard to wake up. When he came to emergency room he was answering questions but looks like he is continued to be confused Patient currently opens eyes and follows simple commands but not all every command. Also he answers some questions. However he looks confused significantly. He is disoriented to time place and person. He has no insight. But he denies any pain. No headache. No dizziness. Moves arms and legs. No tingling. Patient on admission was tachycardic and tachypneic but afebrile He had mild leukocytosis, high hemoglobin at 25 and sodium 156 and creatinine 1.7. Liver enzymes moderately elevated Lactic acid 4.0 Troponin is elevated 0.09 Urine drug screen is negative Serum alcohol less than 10. CT of the head and neck is negative for acute process for either side Chest x-ray is negative for acute process and I reviewed the chest x-rays and agree EKG showing sinus tachycardia at [address] depression 01/21 Patient remains confused, he open eyes to verbal stimuli, he can tell me his name and then he goes back to sleep No abnormal movement Patient sodium 1 significantly elevated at 155, he was given D5W at 75 mL/h, repeat sodium this morning is still pending Patient looks dehydrated. Grape Grower evaluated the patient for higher troponin which is thought secon torsten to dehydration however he has some ST depression in the lateral leads, skilled labor recommended heparin drip x 48 hours as well as metoprolol and Lipitor which are ordered. Yesterday I discussed the case with the neurologist on-call, he recommended to hold on consult since the patient has severe metabolic abnormality. This morning patient remains confused with no significant improvement therefore we are going to reconsult neurology service. He has elevated hemoglobin and hematocrit, most likely secondary to dehydration, keep following levels till sodium level corrected and then reassess. Abdomen looks soft, patient denies abdominal pain or chest pain. 01/22 Patient was moved to the ICU yesterday because of concerns about inability to protect airway He was able to breathe okay this morning. He remains severely confused He remains on D5W at 150 mL/h, sodium down to 152 today Creatinine back to reference range Repeat CT of the brain is negative Heparin drip was discontinued and patient placed on subcutaneous heparin Active Medications Generic Name Dose Route Start Last Admin Trade Name Freq PRN Reason Stop Dose Admin Aspirin 81 mg 01/21/24 11:30 01/23/24 08:40 Aspirin 81 Mg PO Not Given DAILY FIFI Atorvastatin Calcium 40 mg 01/21/24 21:00 01/22/24 21:02 Atorvastatin 40 Mg Tab PO Not Given HS FIFI Clonidine HCl 1 patch 01/22/24 18:00 01/22/24 18:31 Clonidine 0.1 Mg/24hr Patch TRANSDERM 1 patch Q7D FIFI Administration Heparin Sodium (Porcine) 5,000 unit 01/23/24 00:00 01/23/24 08:40 Heparin Sodium,Porcine 5,000 Unit/Ml 1 Ml Vial SQ 5,000 unit Q8HR FIFI Administration Dextrose/Water 1,000 mls @ 150 mls/hr 01/22/24 07:30 01/23/24 08:45 Dextrose 5%-Water Iv Soln IV 150 mls/hr .Q6H40M FIFI Administration Potassium Chloride 10 meq/ IV 100 mls @ 100 mls/hr 01/23/24 08:00 01/23/24 08:40 Solution IVPB 01/23/24 11:59 100 mls/hr Q1HR FIFI Administration Protocol Metoprolol Succinate 25 mg 01/21/24 11:30 01/23/24 08:40 Metoprolol Succinate (Er) 25 Mg Tab.Er.24h PO Not Given DAILY FIFI Miscellaneous Information 1 each 01/21/24 08:10 Potassium Replacement Protocol 1 Each Misc MISCELLANE DAILY PRN Per Protocol Protocol Naloxone HCl 0.2 mg 01/20/24 20:57 Naloxone 0.4 Mg/Ml 1 Ml Vial IV Q2M PRN Opioid Reversal Pantoprazole Sodium 40 mg 01/21/24 09:00 01/23/24 08:40 Pantoprazole 40 Mg/10 Ml Vial IV 40 mg DAILY FIFI Administration Petrolatum 1 applic 01/22/24 09:17 Zinc Oxide Paste (Z-Guard) 1 Applic TOPICAL BID PRN Wound Healing Protocol Objective - Vital Signs Vital signs: Vital Signs Temp 96.5 F L 01/23/24 04:00 Pulse 70 01/23/24 07:00 Resp 21 01/23/24 07:00 BP 146/87 01/23/24 07:00 Pulse Ox 97 01/23/24 07:00 FiO2 Intake & Output 01/22/24 01/23/24 01/23/24 18:59 06:59 18:59 Intake Total 459.172 9334 150 Output Total 270 510 30 Balance 859.515 8850 120 Weight 54 kg 65.7 kg Intake: IV 780 1800 150 Dextrose 5% in Water 1, 780 1800 150 000 ml @ 150 mls/hr IV . Q6H40M FIFI Rx#:[id number] Intake, IV Titration 197.824 Amount Heparin Sod,Pork in 0.45% 197.824 NaCl 25,000 unit In 0.45 % NaCl 1 250ml.bag @ 10. 021 UNITS/KG/HR 10 mls/hr IV .Q24H FIFI Rx#: [id number] Oral 0 0 Output: Urine 270 510 30 Other: Voiding Method Indwelling Catheter Indwelling Catheter - Exam -GENERAL: The patient is al confused, does not follow commands, does not answer questions HEENT: Pupils are round and equally reacting to light. EOMI. No scleral icterus. No conjunctival pallor. Normocephalic, atraumatic. No pharyngeal erythema. No thyromegaly. CARDIOVASCULAR: S1 and S2 present. No murmurs, rubs, or gallops. PULMONARY: Chest is clear to auscultation, no wheezing , no crackles. ABDOMEN: Soft, nontender, nondistended, normoactive bowel sounds. No palpable organomegaly. MUSCULOSKELETAL: No joint swelling or deformity. EXTREMITIES: No cyanosis, clubbing, or pedal edema. NEUROLOGICAL: Gross neurological examination did not reveal any focal deficits. SKIN: No rashes. no petechiae. - Labs CBC & Chem 7: 01/23/24 06:07 01/23/24 06:07 Labs: Abnormal Lab Results - Last 24 Hours (Table) 01/22/24 01/22/24 01/22/24 Range/Units 11:52 13:28 18:07 WBC (3.8-10.6) k/uL Hgb (13.0-17.5) gm/dL Hct (39.0-53.0) % MCV (80.0-100.0) fL Plt Count (150-450) k/uL Neutrophils # (1.3-7.7) k/uL ABG pH 7.48 H (7.35-7.45) ABG pCO2 30 L (35-45) mmHg ABG pO2 127 H (83-108) mmHg ABG O2 Saturation 98.9 H (94-97) % Hemoglobin 20.4 H (13.0-17.5) gm/dL Sodium 159 H (137-145) mmol/L Potassium (3.5-5.1) mmol/L Chloride (98-107) mmol/L Carbon Dioxide (22-30) mmol/L BUN (9-20) mg/dL Creatinine (0.66-1.25) mg/dL Glucose (74-99) mg/dL Osmolality 352 A* (275-295) mOsm/kg 01/22/24 01/23/24 01/23/24 Range/Units 23:47 06:07 06:07 WBC 12.7 H (3.8-10.6) k/uL Hgb 18.9 H (13.0-17.5) gm/dL Hct 56.0 H (39.0-53.0) % MCV 101.9 H (80.0-100.0) fL Plt Count 146 L (150-450) k/uL Neutrophils # 10.7 H (1.3-7.7) k/uL ABG pH (7.35-7.45) ABG pCO2 (35-45) mmHg ABG pO2 (83-108) mmHg ABG O2 Saturation (94-97) % Hemoglobin (13.0-17.5) gm/dL Sodium 153 H 152 H (137-145) mmol/L Potassium 3.2 L (3.5-5.1) mmol/L Chloride 120 H (98-107) mmol/L Carbon Dioxide 21 L (22-30) mmol/L BUN 34 H (9-20) mg/dL Creatinine 0.62 L (0.66-1.25) mg/dL Glucose 157 H (74-99) mg/dL Osmolality (275-295) mOsm/kg Assessment and Plan Assessment: Metabolic/toxic encephalopathy Hypernatremia Non-STEMI with elevated troponin with some EKG changes but patient denies chest pain. Acute kidney injury, improving History of depression, psychosis and suicidal ideation Severe dehydration and hypovolemia History of chronic left leg wound, currently wound is closed, no evidence of cellulitis but mild deformity in the muscles of the left leg Elevated lactic acid Plan: Continue with ICU management Continue with IV fluid, increase D5W to 100 mL/h, we might increase it more based on c sodium level today Monitor creatinine and sodium level heparin drip was discontinued, metoprolol and statin per skilled labor. Continue monitoring Pulmonary and nephrology team consult Neurology and cardiology team consultation Labs and medication were reviewed.. Continue same treatment. Continue with symptomatic treatment. Resume home medication. Monitor labs and vitals. DVT and GI prophylaxis. Further recommendations as per clinical course of the patient DVT prophylaxis: heparin GI Prophylaxis: Pepcid PT/OT: Pending Prognosis is guarded
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
--- NOTE | 2024-01-23 15:23 | P.PN ---
Subjective Progress Note Date: 01/23/24 HISTORY OF PRESENT ILLNESS: 68-year-old with PMH of psychosis, multiple admissions because of suicidal i deation, hypertension and osteoarthritis. He was brought to the hospital by his roommate when patient was found on floor and was difficult to wake up. On evaluation in the ER he was severely confused. At the time of evaluation at bedside, he is very drowsy and confused and the history is very limited. Most of the history is obtained from medical charts. Patient is able to open eyes and follow one-step commands but is not sustaining it. He is very drowsy and goes back to the sleep. He denies any chest pain chest pressure. He denies any palpitation Labs shows hemoglobin 25 significantly elevated, WBC 14, INR 1.2, creatinine 1.7, sodium 156, lactate 4, troponin elevated at 0.09, 0.1, CK elevated at 294. Urine positive for marijuana EKG showed sinus tachycardia with diffuse ST depressions in inferolateral leads. Heart rate 128 bpm Chest x-ray does not show any signs of pulmonary congestion or consolidation CT head did not show any acute intracranial process Echo from August 2023 shows EF 50 to 55%, moderately increased septal wall thickness, RV dilatation, dilated aortic root at 4 cm 01/22/2024: Patient examined this morning the bedside. Patient is lethargic. No complaints of chest pain or shortness of breath. He remains on IV heparin. 2D echo remains pending. Sodium remains elevated at 159 today. 01/23/2024: Patient was examined this morning at bedside. Patient was unresponsive during the assessment. He did not answer to my questions. A detailed review of system s was not obtained. His white blood count was 12.7, hemoglobin 18.9, hematocrit 56, platelet 146. His BMP showed sodium 152, potassium of 3.2, chloride 120, carbon dioxide 21, BUN 34, creatinine 0.62, glucose 157. Urinalysis that was obtained on 01/19 was largely unremarkable. Urine tox screen obtained on 01/19 showed detectable amounts of marijuana. Screening for syphilis was negative. Neurology suggested that the altered mental status is likely due to toxic metabolic encephalopathy. CT of the brain performed on 01/21 showed no acute intracranial process, nonspecific white matter changes, likely secondary to chronic small vessel ischemic disease. Pulmonology recommended a CTA of the brain, may possibly need a lumbar puncture if findings of the CTA are negative. His most recent blood pressure is 152/89. He is saturating at 97% on nasal cannula at 3 L/min. Physical examination: General: Patient is not oriented, not responsive to questions Ears, nose, mouth and throat: There are moist mucous membranes and no oral lesions. TM and canals were not examined Neck: The neck is supple, there is no thyromegaly, lymphadenopathy, tenderness or JVD. Cardiovascular: S1S2 is normal, There is a regular rate and rhythm. No murmur, rub or gallop is appreciated. Respiratory: Lungs are clear to auscultation bilaterally, respirations are non-labored, breath sounds are equal. Gastrointestinal: Soft, non-distended, non-tender abdomen without masses or organomegaly noted. There is no rebound or guarding present. Bowel sounds are unremarkable. Musculoskeletal: Normal ROM, no tenderness, There is no pedal edema. There is no calf tenderness or swelling. No cords were appreciated. Neurological: Detailed neurological examination was not performed as patient had altered mentation and was not responsive to questions. Skin: Skin is warm and dry and no rashes or lesions are noted. Psychiatric: Not assessed. Impression: Altered mental status Hypernatremia, sodium was 152 this morning, 145 this afternoon. Elevated troponin, likely type II NSTEMI in setting of severe dehydration and kidney injury Elevated lactate due to severe dehydration Metabolic encephalopathy Marijuana abuse History of suicidal ideations Plan: Currently pending echocardiogram results. Pending EEG results per neurology. Awaiting results from CT angio of the head. Continue aspirin 81 mg p.o. daily, atorvastatin 40 mg p.o., clonidine patch, metoprolol succinate ER 25 mg p.o. daily. Patient is getting D5W at 150 cc an hour. We will continue to monitor the patient. Objective - Vital Signs Vital signs: Vital Signs Temp 96.8 F L 01/23/24 13:00 Pulse 66 01/23/24 13:00 Resp 16 01/23/24 13:00 BP 152/89 01/23/24 13:00 Pulse Ox 97 01/23/24 13:00 FiO2 Intake & Output 01/22/24 01/23/24 01/23/24 18:59 06:59 18:59 Intake Total 201.485 3318 850 Output Total 270 510 220 Balance 291.600 8103 630 Weight 54 kg 65.7 kg Intake: IV 780 1800 850 Dextrose 5% in Water 1, 780 1800 750 000 ml @ 150 mls/hr IV . Q6H40M FIFI Rx#:[id number] Potassium Chloride 10 meq 100 In Water For Injection 1 100ml.bag @ 100 mls/hr IVPB Q1HR FIFI Rx#: [id number] Intake, IV Titration 197.824 Amount Heparin Sod,Pork in 0.45% 197.824 NaCl 25,000 unit In 0.45 % NaCl 1 250ml.bag @ 10. 021 UNITS/KG/HR 10 mls/hr IV .Q24H FIFI Rx#: [id number] Oral 0 0 0 Output: Urine 270 510 220 Other: Voiding Method Indwelling Catheter Indwelling Catheter Indwelling Catheter - Labs CBC & Chem 7: 01/23/24 06:07 01/23/24 12:16 Labs: Abnormal Lab Results - Last 24 Hours (Table) 01/22/24 01/22/24 01/22/24 Range/Units 13:28 18:07 23:47 WBC (3.8-10.6) k/uL Hgb (13.0-17.5) gm/dL Hct (39.0-53.0) % MCV (80.0-100.0) fL Plt Count (150-450) k/uL Neutrophils # (1.3-7.7) k/uL Sodium 159 H 153 H (137-145) mmol/L Potassium (3.5-5.1) mmol/L Chloride (98-107) mmol/L Carbon Dioxide (22-30) mmol/L BUN (9-20) mg/dL Creatinine (0.66-1.25) mg/dL Glucose (74-99) mg/dL Osmolality 352 A* (275-295) mOsm/kg 01/23/24 01/23/24 Range/Units 06:07 06:07 WBC 12.7 H (3.8-10.6) k/uL Hgb 18.9 H (13.0-17.5) gm/dL Hct 56.0 H (39.0-53.0) % MCV 101.9 H (80.0-100.0) fL Plt Count 146 L (150-450) k/uL Neutrophils # 10.7 H (1.3-7.7) k/uL Sodium 152 H (137-145) mmol/L Potassium 3.2 L (3.5-5.1) mmol/L Chloride 120 H (98-107) mmol/L Carbon Dioxide 21 L (22-30) mmol/L BUN 34 H (9-20) mg/dL Creatinine 0.62 L (0.66-1.25) mg/dL Glucose 157 H (74-99) mg/dL Osmolality (275-295) mOsm/kg
--- NOTE | 2024-01-23 17:14 | CT ---
EXAMINATION TYPE: CT angio head CT DLP: 904.7 mGycm, Automated exposure control for dose reduction was used. DATE OF EXAM: 01/23/2024 4:58 PM COMPARISON: 01/22/2024. CLINICAL INDICATION: Male, 68 years old with history of Altered mental status and breathing; PHH, AMS TECHNIQUE: CT angio head Axially acquired helical CT angiogram was obtained. Axial images are supplem ented with 3D reconstructions which were post-processed at an independent workstation. NASCET criteri a used. Contrast used:65ml mL of Isovue 370 with IV Contrast, none Oral contrast used: none FINDINGS: Vertebral arteries: The vertebral arteries are patent. Vertebral artery dominance: Codominant Basilar artery: The basilar artery is intact. The basilar artery bifurcation is normal. Internal Carotid arteries: Atherosclerosis of the intracranial portions no evidence for high-grade st enosis. The cervical, petrous, cavernous and supraclinoid segments are normal. SARAVANAN: Patent with no evidence of aneurysm. ACOM: Present without evidence of aneurysm. MCA: Patent with no evidence of aneurysm. COMPLIANCE SPECIALIST: Patent with no evidence of aneurysm. PCOM: Hypoplastic bilaterally. Dural sinuses: Patent. IMPRESSION: No evidence of high-grade stenosis or intracranial aneurysm. [facility], , 01/23/2024 5:11 PM
[2024-01-24 00:01] LABS: Glucose,Whole Blood 131 mg/dL (70-110)
--- NOTE | 2024-01-24 00:34 | EEG ---
ELECTROENCEPHALOGRAM REPORT PREAMBLE: This is a 68-year-old male with altered mental status. There were pills on the floor and empty THC gummy wrappers. CURRENT MEDICATIONS: 1. Aspirin. 2. Lipitor. 3. Catapres. 4. Toprol. 5. Protonix. 6. Zinc. EEG FINDINGS: This is a 21-channel digital EEG recorded with video component, utilizing 10/20 international system with referential and bipolar montages. The recording starts and continues with presence of [id number] amplitude activity in 6 to 7 hertz theta seen in bihemispheric region. Background does not seem to be reactive to eye opening or closing. Well formed awake pattern not seen in the entire study. Photic stimulation was not performed. Hyperventilation was not done. Different stages of sleep were not seen. EKG channel showed no obvious arrhythmia. No focal or generalized epileptiform activity was seen. IMPRESSION: This is an abnormal EEG due to generalized slowing, mild to moderate degree. This is suggestive of generalized cerebral dysfunction as can be seen with toxic metabolic encephalopathy or related to diffuse structural brain abnormality. Clinical correlation is recommended. No epileptiform activity was seen. MMODL / IJN: [id number] /
[2024-01-24 05:00] LABS: Basophils % (A) 0 %; Eosinophils # (A) 0.1 k/uL (0-0.7); Eosinophils % (A) 1 %; HCT 53.9 % (39.0-53.0); HGB 17.5 gm/dL (13.0-17.5); Lymphocytes # (A) 1.3 k/uL (1.0-4.8); Lymphocytes % (A) 8 %; MCH 33.2 pg (25.0-35.0); MCHC 32.5 g/dL (31.0-37.0); Macrocytosis Slight; Mean Platelet Volume 10.3; Monocytes # (A) 0.6 k/uL (0-1.0); Monocytes % (A) 4 %; Neutrophils % (A) 86 %; Platelet Count 171 k/uL (150-450); RBC 5.28 m/uL (4.30-5.90); RDW 12.8 % (11.5-15.5); WBC 15.1 k/uL (3.8-10.6)
[2024-01-24 05:12] LABS: African American GFR (CKD) >90 (>60 ml/min/1.73 sqM); Anion Gap 7 mmol/L; Blood Urea Nitrogen 11 mg/dL (9-20); Calcium 8.5 mg/dL (8.4-10.2); Carbon Dioxide 25 mmol/L (22-30); Chloride 105 mmol/L (98-107); Glucose 140 mg/dL (74-99); Non-African American GFR(CKD) >90 (>60 ml/min/1.73 sqM); Potassium 3.2 mmol/L (3.5-5.1); Sodium 137 mmol/L (137-145)
[2024-01-24 06:07] LABS: Glucose,Whole Blood 117 mg/dL (70-110)
[2024-01-24] MEDS: POTASSIUM CHLORIDE 10 MEQ in WATER FOR INJECTION 1 100ML.BAG IVPB SCH (08:24)
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
[2024-01-24] MEDS: DEXTROSE 5%-0.9% NACL 1,000 ML IV SCH (10:16)
--- NOTE | 2024-01-24 10:37 | XR ---
EXAMINATION TYPE: XR chest 1V portable DATE OF EXAM: 01/24/2024 COMPARISON: 01/20/2024 HISTORY: NG tube placement TECHNIQUE: Single frontal view of the chest is obtained. FINDINGS: There is no focal air space opacity, pleural effusion, enteric tube is seen with the tip i n the region of the duodenal bulb. Linear change left lung base most typical of atelectasis. Or pneum othorax seen. The cardiac silhouette size is within normal limits. The osseous structures are inta ct. Degenerative changes of the spine. IMPRESSION: No acute process. [facility], , 01/24/2024 10:34 AM
--- NOTE | 2024-01-24 11:05 | P.PN ---
Subjective Progress Note Date: 01/24/24 HISTORY OF PRESENT ILLNESS: 68-year-old with PMH of psychosis, multiple admissions because of suicidal i deation, hypertension and osteoarthritis. He was brought to the hospital by his roommate when patient was found on floor and was difficult to wake up. On evaluation in the ER he was severely confused. At the time of evaluation at bedside, he is very drowsy and confused and the history is very limited. Most of the history is obtained from medical charts. Patient is able to open eyes and follow one-step commands but is not sustaining it. He is very drowsy and goes back to the sleep. He denies any chest pain chest pressure. He denies any palpitation Labs shows hemoglobin 25 significantly elevated, WBC 14, INR 1.2, creatinine 1.7, sodium 156, lactate 4, troponin elevated at 0.09, 0.1, CK elevated at 294. Urine positive for marijuana EKG showed sinus tachycardia with diffuse ST depressions in inferolateral leads. Heart rate 128 bpm Chest x-ray does not show any signs of pulmonary congestion or consolidation CT head did not show any acute intracranial process Echo from August 2023 shows EF 50 to 55%, moderately increased septal wall thickness, RV dilatation, dilated aortic root at 4 cm 01/22/2024: Patient examined this morning the bedside. Patient is lethargic. No complaints of chest pain or shortness of breath. He remains on IV heparin. 2D echo remains pending. Sodium remains elevated at 159 today. 01/23/2024: Patient was examined this morning at bedside. Patient was unresponsive during the assessment. He did not answer to my questions. A detailed review of system s was not obtained. His white blood count was 12.7, hemoglobin 18.9, hematocrit 56, platelet 146. His BMP showed sodium 152, potassium of 3.2, chloride 120, carbon dioxide 21, BUN 34, creatinine 0.62, glucose 157. Urinalysis that was obtained on 01/19 was largely unremarkable. Urine tox screen obtained on 01/19 showed detectable amounts of marijuana. Screening for syphilis was negative. Neurology suggested that the altered mental status is likely due to toxic metabolic encephalopathy. CT of the brain performed on 01/21 showed no acute intracranial process, nonspecific white matter changes, likely secondary to chronic small vessel ischemic disease. Pulmonology recommended a CTA of the brain, may possibly need a lumbar puncture if findings of the CTA are negative. His most recent blood pressure is 152/89. He is saturating at 97% on nasal cannula at 3 L/min. 01/24/2024: Patient was examined this morning at bedside. He continued to remain unresponsive during assessment. A detailed review of systems was not obtained. His CBC showed white blood count of 15.1. Hemoglobin 17.5. Hematocrit 53.9. Platelet 171. CMP showed sodium 137, potassium 3.2, chloride 105, carbon dioxid e 25, BUN 11, creatinine 0.37, glucose 140. Syphilis screen was negative. CTA of the head showed no evidence of high-grade stenosis or intracranial aneurysm. EEG obtained yesterday showed abnormal EEG due to generalized slowing, mild to moderate degree, suggestive of generalized cerebral dysfunction with toxic metabolic encephalopathy or related to diffuse structural brain abnormality. No epileptiform activity. Echocardiogram results pending. Physical examination: General: Patient is not oriented, not responsive to questions Ears, nose, mouth and throat: There are moist mucous membranes and no oral lesions. TM and canals were not examined Neck: The neck is supple, there is no thyromegaly, lymphadenopathy, tenderness or JVD. Cardiovascular: S1S2 is normal, There is a regular rate and rhythm. No murmur, rub or gallop is appreciated. Respiratory: Lungs are clear to auscultation bilaterally, respirations are non-labored, breath sounds are equal. Gastrointestinal: Soft, non-distended, non-tender abdomen without masses or organomegaly noted. There is no rebound or guarding present. Bowel sounds are unremarkable. Musculoskeletal: Normal ROM, no tenderness, There is no pedal edema. There is no calf tenderness or swelling. No cords were appreciated. Neurological: Detailed neurological examination was not performed as patient had altered mentation and was not responsive to questions. Skin: Skin is warm and dry and no rashes or lesions are noted. Psychiatric: Not assessed. Impression: Altered mental status Hypernatremia, sodium was 137 this morning. Elevated troponin, likely type II NSTEMI in setting of severe dehydration and kidney injury Elevated lactate due to severe dehydration Metabolic encephalopathy Marijuana abuse History of suicidal ideations Plan: Pending echocardiogram results. Lumbar puncture was performed at bedside this morning by the ICU team. Continue aspirin 81 mg p.o. daily, Lipitor 40 mg p.o. daily, clonidine patch, metoprolol succinate 25 mg p.o daily. We will continue to monitor the patient. Addendum: will follow on PRN basis. Objective - Vital Signs Vital signs: Vital Signs Temp 98.2 F 01/24/24 08:00 Pulse 82 01/24/24 08:00 Resp 16 01/24/24 08:00 BP 127/97 01/24/24 08:00 Pulse Ox 96 01/24/24 08:47 FiO2 Intake & Output 01/23/24 01/24/24 01/24/24 18:59 06:59 18:59 Intake Total 2200 1800 0 Output Total 780 960 90 Balance 1420 840 -90 Weight 70.6 kg Intake: IV 2200 1800 0 Dextrose 5% in Water 1, 1800 1800 0 000 ml @ 150 mls/hr IV . Q6H40M [facility]I Rx#:[id number] Potassium Chloride 10 meq 400 In Water For Injection 1 100ml.bag @ 100 mls/hr IVPB Q1HR FIFI Rx#: [id number] Oral 0 0 Output: Urine 780 960 90 Other: Voiding Method Indwelling Catheter Indwelling Catheter # Bowel Movements 0 - Labs CBC & Chem 7: 01/25/24 05:48 01/25/24 05:48 Labs: Abnormal Lab Results - Last 24 Hours (Table) 01/24/24 01/24/24 01/24/24 Range/Units 00:00 04:13 04:13 WBC 15.1 H (3.8-10.6) k/uL Hct 53.9 H (39.0-53.0) % MCV 102.0 H (80.0-100.0) fL Neutrophils # 13.0 H (1.3-7.7) k/uL Potassium 3.2 L (3.5-5.1) mmol/L Creatinine 0.37 L (0.66-1.25) mg/dL Glucose 140 H (74-99) mg/dL POC Glucose (mg/dL) 131 H (70-110) mg/dL 01/24/24 Range/Units 06:05 WBC (3.8-10.6) k/uL Hct (39.0-53.0) % MCV (80.0-100.0) fL Neutrophils # (1.3-7.7) k/uL Potassium (3.5-5.1) mmol/L Creatinine (0.66-1.25) mg/dL Glucose (74-99) mg/dL POC Glucose (mg/dL) 117 H (70-110) mg/dL
--- NOTE | 2024-01-24 11:19 | P.PN ---
Subjective patient is seen for follow-up for hypernatremia and acute kidney injury. Mentation has not improved. Status post LP this morning. Serum sodium decreased to 137 today. Serum creatinine 0.37. Good urine output. Objective - Vital Signs Vital signs: Vital Signs Temp 98.2 F 01/24/24 08:00 Pulse 88 01/24/24 11:00 Resp 15 01/24/24 11:00 BP 144/97 01/24/24 11:00 Pulse Ox 93 L 01/24/24 11:00 FiO2 Intake & Output 01/23/24 01/24/24 01/24/24 18:59 06:59 18:59 Intake Total 2200 1800 375 Output Total 780 960 250 Balance 1420 840 125 Weight 70.6 kg 70.6 kg Intake: IV 2200 1800 0 Dextrose 5% in Water 1, 1800 1800 0 000 ml @ 150 mls/hr IV . Q6H40M [facility]I Rx#:[id number] Potassium Chloride 10 meq 400 In Water For Injection 1 100ml.bag @ 100 mls/hr IVPB Q1HR [facility]I Rx#: [id number] Intake, IV Titration 375 Amount Dextrose 5%-0.9% NaCl 1, 75 000 ml @ 75 mls/hr IV . [id number] [facility]I Rx#:[id number] Potassium Chloride 10 meq 300 In Water For Injection 1 100ml.bag @ 100 mls/hr IVPB Q1HR FIFI Rx#: [id number] Oral 0 0 Output: Urine 780 960 250 Other: Voiding Method Indwelling Catheter Indwelling Catheter # Bowel Movements 0 - Exam patient is having LP performed. No acute distress noted No edema noted - Labs CBC & Chem 7: 01/24/24 04:13 01/24/24 04:13 Labs: Abnormal Lab Results - Last 24 Hours (Table) 01/24/24 01/24/24 01/24/24 Range/Units 00:00 04:13 04:13 WBC 15.1 H (3.8-10.6) k/uL Hct 53.9 H (39.0-53.0) % MCV 102.0 H (80.0-100.0) fL Neutrophils # 13.0 H (1.3-7.7) k/uL Potassium 3.2 L (3.5-5.1) mmol/L Creatinine 0.37 L (0.66-1.25) mg/dL Glucose 140 H (74-99) mg/dL POC Glucose (mg/dL) 131 H (70-110) mg/dL 01/24/24 Range/Units 06:05 WBC (3.8-10.6) k/uL Hct (39.0-53.0) % MCV (80.0-100.0) fL Neutrophils # (1.3-7.7) k/uL Potassium (3.5-5.1) mmol/L Creatinine (0.66-1.25) mg/dL Glucose (74-99) mg/dL POC Glucose (mg/dL) 117 H (70-110) mg/dL Assessment and Plan Assessment: 1. Hypernatremia with significant free water deficit, maintained on D5W and improving. No significant diarrhea noted. 2. Mental status changes secondary to electrolyte disorder, rule out CVA. Status post LP. Brain CT was negative 3. Volume depletion 4. Acute kidney injury secondary to volume depletion, now improved. 5. History of EtOH abuse 6. History of closed head injury 7. Hypokalemia Plan: DC D5W tinea with free water with tube feedings Continue to monitor serum sodium [place] replace potassium
[2024-01-24 11:59] LABS: Creatine Kinase 33 U/L (55-170); Sodium 136 mmol/L (137-145)
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
--- NOTE | 2024-01-24 14:45 | P.PCN ---
Date of Procedure: 01/24/24 Preoperative Diagnosis: Altered mental status Postoperative Diagnosis: Altered mental status Procedure(s) Performed: Lumbar puncture Anesthesia: local Surgeon: Lucy Mclean Estimated Blood Loss (ml): 0 Pathology: other Condition: critical Disposition: ICU Operative Findings: A time-out was performed. My hands were washed immediately prior to the procedure. I wore a surgical cap, mask with protective eyewear, sterile gown and sterile gloves throughout the procedure. The patient was placed in the lateral position with help from the nursing staff. The area was cleansed and draped in usual sterile fashion using betadine scrub. Anesthesia was achieved with 1% lidocaine. A 20-gauge 3.5-inch spinal needle was placed in the fourth lumbar interspace. On the first attempt, clear colored cerebral spinal fluid was obtained. The opening pressure was not measured. CSF was collected into 4 tubes. These were sent for the usual tests, including 1 tube to be held for further analysis if needed. A sterile bandaid was placed over the puncture site. The patient had no immediate complications and tolerated the procedure well. Estimated blood loss was 0
[2024-01-24 15:40] LABS: Appearance,CSF Clear
[2024-01-24 15:41] LABS: CSF Tube Number 4; Nucleated Cells, CSF 0 u/L (0-5); Red Blood Cell,CSF 28 u/L (0-10)
[2024-01-24 15:43] LABS: Red Blood Cell, CSF Crenated 4 %; Red Blood Cell, CSF Fresh 96 %
[2024-01-24 15:44] LABS: Glucose,CSF 72 mg/dL (40-70)
[2024-01-24 16:55] LABS: Total Protein,CSF 106 mg/dL (12-60)
--- NOTE | 2024-01-24 21:59 | P.PN ---
Subjective This is a pleasant 68 years old male with past medical history of psychosis and multiple admission for suicidal ideation, hypertension, osteoarthritis Patient brought to the emergency room because he was found by his roommate on the floor, hard to wake up. When he came to emergency room he was answering questions but looks like he is continued to be confused Patient currently opens eyes and follows simple commands but not all every command. Also he answers some questions. However he looks confused significantly. He is disoriented to time place and person. He has no insight. But he denies any pain. No headache. No dizziness. Moves arms and legs. No tingling. Patient on admission was tachycardic and tachypneic but afebrile He had mild leukocytosis, high hemoglobin at 25 and sodium 156 and creatinine 1.7. Liver enzymes moderately elevated Lactic acid 4.0 Troponin is elevated 0.09 Urine drug screen is negative Serum alcohol less than 10. CT of the head and neck is negative for acute process for either side Chest x-ray is negative for acute process and I reviewed the chest x-rays and agree EKG showing sinus tachycardia at [address] depression 01/21 Patient remains confused, he open eyes to verbal stimuli, he can tell me his name and then he goes back to sleep No abnormal movement Patient sodium 1 significantly elevated at 155, he was given D5W at 75 mL/h, repeat sodium this morning is still pending Patient looks dehydrated. Commercial Production Editor evaluated the patient for higher troponin which is thought secon torsten to dehydration however he has some ST depression in the lateral leads, food and beverage service manager recommended heparin drip x 48 hours as well as metoprolol and Lipitor which are ordered. Yesterday I discussed the case with the neurologist on-call, he recommended to hold on consult since the patient has severe metabolic abnormality. This morning patient remains confused with no significant improvement therefore we are going to reconsult neurology service. He has elevated hemoglobin and hematocrit, most likely secondary to dehydration, keep following levels till sodium level corrected and then reassess. Abdomen looks soft, patient denies abdominal pain or chest pain. 01/22 Patient was moved to the ICU yesterday because of concerns about inability to protect airway He was able to breathe okay this morning. He remains severely confused He remains on D5W at 150 mL/h, sodium down to 152 today Creatinine back to reference range Repeat CT of the brain is negative Heparin drip was discontinued and patient placed on subcutaneous heparin 01/23 Patient is becoming more encephalopathic, he is nonverbal, does not follow command does not answer questions. This is despite correction of his hyponatremia and other metabolic abnormalities like acute kidney injury. And there is concerned about ability to protect airway so far he does not need intervention but close monitoring in the ICU Today patient underwent lumbar puncture and results Showing RBC is elevated at 28, nucleated cells are 0. Glucose slightly elevated 72 and protein 106. Cultures pending Also patient has low-grade fever and is Amandeep concentrated sample of CBC improved except for WBC remains elevated about 15.1 K, neurology service recommended to consider ID team, Patient is also history of suicidal ideation however his urine drug screen on admission showed only marijuana Prognosis remains guarded Active Medications Generic Name Dose Route Start Last Admin Trade Name Freq PRN Reason Stop Dose Admin Aspirin 81 mg 01/21/24 11:30 01/24/24 08:28 Aspirin 81 Mg PO Not Given DAILY FIFI Atorvastatin Calcium 40 mg 01/21/24 21:00 01/24/24 20:20 Atorvastatin 40 Mg Tab PO Not Given HS FIFI Clonidine HCl 1 patch 01/22/24 18:00 01/22/24 18:31 Clonidine 0.1 Mg/24hr Patch TRANSDERM 1 patch Q7D [facility]I Administration Heparin Sodium (Porcine) 5,000 unit 01/23/24 00:00 01/24/24 17:02 Heparin Sodium,Porcine 5,000 Unit/Ml 1 Ml Vial SQ 5,000 unit Q8HR FIFI Administration Dextrose/Sodium Chloride 1,000 mls @ 75 mls/hr 01/24/24 10:00 01/24/24 10:16 Dextrose 5%-Ns Iv Soln IV 75 mls/hr .[id number] [facility] Administration Metoprolol Succinate 25 mg 01/21/24 11:30 01/24/24 08:28 Metoprolol Succinate (Er) 25 Mg Tab.Er.24h PO Not Given DAILY FIFI Miscellaneous Information 1 each 01/21/24 08:10 Potassium Replacement Protocol 1 Each Misc MISCELLANE DAILY PRN Per Protocol Protocol Naloxone HCl 0.2 mg 01/20/24 20:57 Naloxone 0.4 Mg/Ml 1 Ml Vial IV Q2M PRN Opioid Reversal Pantoprazole Sodium 40 mg 01/21/24 09:00 01/24/24 08:23 Pantoprazole 40 Mg/10 Ml Vial IV 40 mg DAILY FIFI Administration Petrolatum 1 applic 01/22/24 09:17 Zinc Oxide Paste (Z-Guard) 1 Applic TOPICAL BID PRN Wound Healing Protocol Objective - Vital Signs Vital signs: Vital Signs Temp 98.9 F 01/24/24 16:00 Pulse 78 01/24/24 19:00 Resp 19 01/24/24 19:00 BP 145/82 01/24/24 19:00 Pulse Ox 95 01/24/24 19:00 FiO2 Intake & Output 01/24/24 01/24/24 01/25/24 06:59 18:59 06:59 Intake Total 1800 990 85 Output Total 960 600 45 Balance 840 390 40 Weight 70.6 kg 70.6 kg Intake: IV 1800 0 Dextrose 5% in Water 1, 1800 0 000 ml @ 150 mls/hr IV . Q6H40M [facility] Rx#:[id number] Intake, IV Titration 900 75 Amount Dextrose 5%-0.9% NaCl 1, 600 75 000 ml @ 75 mls/hr IV . [id number] [facility] Rx#:[id number] Potassium Chloride 10 meq 300 In Water For Injection 1 100ml.bag @ 100 mls/hr IVPB Q1HR [facility] Rx#: [id number] Oral 0 Tube Feeding 60 10 Other 30 Output: Urine 960 600 45 Other: Voiding Method Indwelling Catheter Indwelling Catheter # Bowel Movements 0 - Exam -GENERAL: The patient is al confused, does not follow commands, does not answer questions HEENT: Pupils are round and equally reacting to light. EOMI. No scleral icterus. No conjunctival pallor. Normocephalic, atraumatic. No pharyngeal erythema. No thyromegaly. CARDIOVASCULAR: S1 and S2 present. No murmurs, rubs, or gallops. PULMONARY: Chest is clear to auscultation, no wheezing , no crackles. ABDOMEN: Soft, nontender, nondistended, normoactive bowel sounds. No palpable o rganomegaly. MUSCULOSKELETAL: No joint swelling or deformity. EXTREMITIES: No cyanosis, clubbing, or pedal edema. NEUROLOGICAL: Gross neurological examination did not reveal any focal deficits. SKIN: No rashes. no petechiae. - Labs CBC & Chem 7: 01/24/24 04:13 01/24/24 11:18 Labs: Abnormal Lab Results - Last 24 Hours (Table) 01/24/24 01/24/24 01/24/24 Range/Units 00:00 04:13 04:13 WBC 15.1 H (3.8-10.6) k/uL Hct 53.9 H (39.0-53.0) % MCV 102.0 H (80.0-100.0) fL Neutrophils # 13.0 H (1.3-7.7) k/uL Sodium (137-145) mmol/L Potassium 3.2 L (3.5-5.1) mmol/L Creatinine 0.37 L (0.66-1.25) mg/dL Glucose 140 H (74-99) mg/dL POC Glucose (mg/dL) 131 H (70-110) mg/dL Creatine Kinase (55-170) U/L CSF RBC (0-10) u/L CSF Glucose (40-70) mg/dL CSF Total Protein (12-60) mg/dL 01/24/24 01/24/24 01/24/24 Range/Units 06:05 10:36 11:18 WBC (3.8-10.6) k/uL Hct (39.0-53.0) % MCV (80.0-100.0) fL Neutrophils # (1.3-7.7) k/uL Sodium 136 L (137-145) mmol/L Potassium (3.5-5.1) mmol/L Creatinine (0.66-1.25) mg/dL Glucose (74-99) mg/dL POC Glucose (mg/dL) 117 H (70-110) mg/dL Creatine Kinase 33 L (55-170) U/L CSF RBC 28 H (0-10) u/L CSF Glucose 72 H (40-70) mg/dL CSF Total Protein 106 H (12-60) mg/dL Assessment and Plan Assessment: Severe encephalopathy, could be multifactorial. Metabolic/toxic encephalopathy, however many metabolic abnormality corrected with no improvement Hypernatremia. Resolved Non-STEMI with elevated troponin with some EKG changes but patient denies chest pain. Acute kidney injury, improving History of depression, psychosis and suicidal ideation Severe dehydration and hypovolemia History of chronic left leg wound, currently wound is closed, no evidence of cellulitis but mild deformity in the muscles of the left leg Elevated lactic acid Plan: Continue with ICU management Neurology consult in the case. Follow-up culture results, follow-up lumbar puncture results Continue with IV hydration D5 normal saline at 75 Consult infectious disease team as well Sodium levels corrected and D5W was stopped Pulmonary and nephrology team consult Neurology and cardiology team consultation Labs and medication were reviewed.. Continue same treatment. Continue with symptomatic treatment. Resume home medication. Monitor labs and vitals. DVT and GI prophylaxis. Further recommendations as per clinical course of the patient DVT prophylaxis: heparin GI Prophylaxis: Pepcid Prognosis is guarded
[2024-01-25] MEDS: hydrALAZINE HCL 20 MG/ML 1 ML VIAL IVP PRN (01:17)
[2024-01-25 06:19] LABS: Basophils % (A) 0 %; Eosinophils % (A) 0 %; Lymphocytes # (A) 0.5 k/uL (1.0-4.8); Lymphocytes % (A) 2 %; MCHC 31.8 g/dL (31.0-37.0); MCV 103.8 fL (80.0-100.0); Macrocytosis Slight; Mean Platelet Volume 9.3; Monocytes # (A) 0.5 k/uL (0-1.0); Monocytes % (A) 2 %; Neutrophils # (A) 20.5 k/uL (1.3-7.7); Neutrophils % (A) 94 %; Platelet Count 188 k/uL (150-450); RBC 5.46 m/uL (4.30-5.90); RDW 12.6 % (11.5-15.5); WBC 21.7 k/uL (3.8-10.6)
[2024-01-25 06:25] LABS: HCT 56.7 % (39.0-53.0)
[2024-01-25 06:29] LABS: ALT 33 U/L (4-49); AST 36 U/L (17-59); African American GFR (CKD) >90 (>60 ml/min/1.73 sqM); Albumin 3.5 g/dL (3.5-5.0); Alkaline Phosphatase 109 U/L (38-126); Anion Gap 4 mmol/L; Blood Urea Nitrogen 11 mg/dL (9-20); Calcium 8.2 mg/dL (8.4-10.2); Carbon Dioxide 29 mmol/L (22-30); Chloride 104 mmol/L (98-107); Glucose 152 mg/dL (74-99); Non-African American GFR(CKD) >90 (>60 ml/min/1.73 sqM); Potassium 3.3 mmol/L (3.5-5.1); Sodium 137 mmol/L (137-145); Total Bilirubin 1.5 mg/dL (0.2-1.3); Total Protein 6.5 g/dL (6.3-8.2)
[2024-01-25 09:35] LABS: ABG Oxygen Saturation 93.2 % (94-97); ABG PO2 86 mmHg (83-108); Allen Test Performed? Yes
[2024-01-25 09:38] LABS: ABG PCO2 95 mmHg (35-45); ABG PH 7.12 (7.35-7.45)
--- NOTE | 2024-01-25 09:55 | XR ---
EXAMINATION TYPE: XR chest 1V portable DATE OF EXAM: 01/25/2024 COMPARISON: 01/24/2024 HISTORY: Shortness of breath TECHNIQUE: Single frontal view of the chest is obtained. FINDINGS: Left lower lobe infiltrate. Right lung clear. Feeding tube stable. No overt failure or pne umothorax. Degenerative change of the spine. Atherosclerotic change aorta. IMPRESSION: Left lower lobe infiltrate. [facility], , 01/25/2024 9:53 AM
--- NOTE | 2024-01-25 10:04 | P.PN ---
Subjective This is a pleasant 68 years old male with past medical history of psychosis and multiple admission for suicidal ideation, hypertension, osteoarthritis Patient brought to the emergency room because he was found by his roommate on the floor, hard to wake up. When he came to emergency room he was answering questions but looks like he is continued to be confused Patient currently opens eyes and follows simple commands but not all every command. Also he answers some questions. However he looks confused significantly. He is disoriented to time place and person. He has no insight. But he denies any pain. No headache. No dizziness. Moves arms and legs. No tingling. Patient on admission was tachycardic and tachypneic but afebrile He had mild leukocytosis, high hemoglobin at 25 and sodium 156 and creatinine 1.7. Liver enzymes moderately elevated Lactic acid 4.0 Troponin is elevated 0.09 Urine drug screen is negative Serum alcohol less than 10. CT of the head and neck is negative for acute process for either side Chest x-ray is negative for acute process and I reviewed the chest x-rays and agree EKG showing sinus tachycardia at [address] depression 01/21 Patient remains confused, he open eyes to verbal stimuli, he can tell me his name and then he goes back to sleep No abnormal movement Patient sodium 1 significantly elevated at 155, he was given D5W at 75 mL/h, repeat sodium this morning is still pending Patient looks dehydrated. Retail Account Specialist evaluated the patient for higher troponin which is thought secon torsten to dehydration however he has some ST depression in the lateral leads, operations manager station recommended heparin drip x 48 hours as well as metoprolol and Lipitor which are ordered. Yesterday I discussed the case with the neurologist on-call, he recommended to hold on consult since the patient has severe metabolic abnormality. This morning patient remains confused with no significant improvement therefore we are going to reconsult neurology service. He has elevated hemoglobin and hematocrit, most likely secondary to dehydration, keep following levels till sodium level corrected and then reassess. Abdomen looks soft, patient denies abdominal pain or chest pain. 01/22 Patient was moved to the ICU yesterday because of concerns about inability to protect airway He was able to breathe okay this morning. He remains severely confused He remains on D5W at 150 mL/h, sodium down to 152 today Creatinine back to reference range Repeat CT of the brain is negative Heparin drip was discontinued and patient placed on subcutaneous heparin 01/23 Patient is becoming more encephalopathic, he is nonverbal, does not follow command does not answer questions. This is despite correction of his hyponatremia and other metabolic abnormalities like acute kidney injury. And there is concerned about ability to protect airway so far he does not need intervention but close monitoring in the ICU Today patient underwent lumbar puncture and results Showing RBC is elevated at 28, nucleated cells are 0. Glucose slightly elevated 72 and protein 106. Cultures pending Also patient has low-grade fever and is Amandeep concentrated sample of CBC improved except for WBC remains elevated about 15.1 K, neurology service recommended to consider ID team, Patient is also history of suicidal ideation however his urine drug screen on admission showed only marijuana Prognosis remains guarded 01/24 Patient dip unit operator desaturated down to 70s associated with brief period of rigidness and shakiness and his eyes were wide open, this episode happened twice and lasted for short time seconds to minutes. He had EEG initially done which was unremarkable another EEG is requested today, patient was started on IV Keppra 1000 mg Also ABG shows evidence of acute hypoxic hypercapnic respiratory failure, patient was unable to protect his airway and he got intubated today. In the meantime there is no abnormal movement currently. He is afebrile this morning. Last fever was on 01/22 and it was 100 degrees which is low-grade. Labs showing leukocytosis worse 21.7, hemoglobin 18, platelet count is 188. pH 7.1, pCO2 is high at 95. Oxygen with pO2 of 86 while on 15 L. Sodium 137, potassium 3.3. Liver enzymes not significantly elevated. CSF culture permanent results are still pending Active Medications Generic Name Dose Route Start Last Admin Trade Name Freq PRN Reason Stop Dose Admin Aspirin 81 mg 01/21/24 11:30 01/24/24 08:28 Aspirin 81 Mg PO Not Given DAILY [facility]I Atorvastatin Calcium 40 mg 01/21/24 21:00 01/24/24 20:20 Atorvastatin 40 Mg Tab PO Not Given HS FIFI Clonidine HCl 1 patch 01/22/24 18:00 01/22/24 18:31 Clonidine 0.1 Mg/24hr Patch TRANSDERM 1 patch Q7D [facility] Administration Heparin Sodium (Porcine) 5,000 unit 01/23/24 00:00 01/25/24 01:19 Heparin Sodium,Porcine 5,000 Unit/Ml 1 Ml Vial SQ 5,000 unit Q8HR [facility] Administration Hydralazine HCl 10 mg 01/25/24 01:09 01/25/24 01:17 Hydralazine Hcl 20 Mg/Ml 1 Ml Vial IVP 10 mg Q4HR PRN Administration Blood Pressure - High Dextrose/Sodium Chloride 1,000 mls @ 75 mls/hr 01/24/24 10:00 01/25/24 01:17 Dextrose 5%-Ns Iv Soln IV 75 mls/hr .[id number] [facility] Administration Levetiracetam 1,000 mg 01/25/24 09:45 Levetiracetam Iv 500 Mg/5 Ml Vial IVP Q12HR [facility] Metoprolol Succinate 25 mg 01/21/24 11:30 01/24/24 08:28 Metoprolol Succinate (Er) 25 Mg Tab.Er.24h PO Not Given DAILY [facility] Miscellaneous Information 1 each 01/21/24 08:10 Potassium Replacement Protocol 1 Each Misc MISCELLANE DAILY PRN Per Protocol Protocol Naloxone HCl 0.2 mg 01/20/24 20:57 Naloxone 0.4 Mg/Ml 1 Ml Vial IV Q2M PRN Opioid Reversal Pantoprazole Sodium 40 mg 01/21/24 09:00 01/24/24 08:23 Pantoprazole 40 Mg/10 Ml Vial IV 40 mg DAILY [facility]I Administration Petrolatum 1 applic 01/22/24 09:17 Zinc Oxide Paste (Z-Guard) 1 Applic TOPICAL BID PRN Wound Healing Protocol Objective - Vital Signs Vital signs: Vital Signs Temp 97.5 F L 01/25/24 04:00 Pulse 100 01/25/24 07:00 Resp 15 01/25/24 07:00 BP 135/79 01/25/24 07:00 Pulse Ox 92 L 01/25/24 07:59 FiO2 100 01/25/24 09:41 Intake & Output 01/24/24 01/25/24 01/25/24 18:59 06:59 18:59 Intake Total 990 1425 Output Total 600 815 Balance 390 610 Weight 70.6 kg 72 kg Intake: IV 0 Dextrose 5% in Water 1, 0 000 ml @ 150 mls/hr IV . Q6H40M [facility] Rx#:[id number] Intake, IV Titration 900 975 Amount Dextrose 5%-0.9% NaCl 1, 600 975 000 ml @ 75 mls/hr IV . [id number] [facility] Rx#:[id number] Potassium Chloride 10 meq 300 In Water For Injection 1 100ml.bag @ 100 mls/hr IVPB Q1HR [facility] Rx#: [id number] Tube Feeding 60 270 Other 30 180 Output: Urine 600 815 Other: Voiding Method Indwelling Catheter Indwelling Catheter - Exam -GENERAL: The patient is al confused, does not follow commands, does not answer questions HEENT: Pupils are round and equally reacting to light. EOMI. No scleral icterus. No conjunctival pallor. Normocephalic, atraumatic. No pharyngeal erythema. No thyromegaly. CARDIOVASCULAR: S1 and S2 present. No murmurs, rubs, or gallops. PULMONARY: Chest is clear to auscultation, no wheezing , no crackles. ABDOMEN: Soft, nontender, nondistended, normoactive bowel sounds. No palpable organomegaly. MUSCULOSKELETAL: No joint swelling or deformity. EXTREMITIES: No cyanosis, clubbing, or pedal edema. NEUROLOGICAL: Gross neurological examination did not reveal any focal deficits. SKIN: No rashes. no petechiae. - Labs CBC & Chem 7: 01/25/24 05:48 01/25/24 05:48 Labs: Abnormal Lab Results - Last 24 Hours (Table) 01/24/24 01/24/24 01/25/24 Range/Units 10:36 11:18 05:48 WBC 21.7 H (3.8-10.6) k/uL Hgb 18.0 H (13.0-17.5) gm/dL Hct 56.7 H (39.0-53.0) % MCV 103.8 H (80.0-100.0) fL Neutrophils # 20.5 H (1.3-7.7) k/uL Lymphocytes # 0.5 L (1.0-4.8) k/uL ABG pH (7.35-7.45) ABG pCO2 (35-45) mmHg ABG O2 Saturation (94-97) % Hemoglobin (13.0-17.5) gm/dL Sodium 136 L (137-145) mmol/L Potassium (3.5-5.1) mmol/L Creatinine (0.66-1.25) mg/dL Glucose (74-99) mg/dL Calcium (8.4-10.2) mg/dL Total Bilirubin (0.2-1.3) mg/dL Creatine Kinase 33 L (55-170) U/L CSF RBC 28 H (0-10) u/L CSF Glucose 72 H (40-70) mg/dL CSF Total Protein 106 H (12-60) mg/dL 01/25/24 01/25/24 Range/Units 05:48 09:33 WBC (3.8-10.6) k/uL Hgb (13.0-17.5) gm/dL Hct (39.0-53.0) % MCV (80.0-100.0) fL Neutrophils # (1.3-7.7) k/uL Lymphocytes # (1.0-4.8) k/uL ABG pH 7.12 L* (7.35-7.45) ABG pCO2 95 H* (35-45) mmHg ABG O2 Saturation 93.2 L (94-97) % Hemoglobin 18.3 H (13.0-17.5) gm/dL Sodium (137-145) mmol/L Potassium 3.3 L (3.5-5.1) mmol/L Creatinine 0.50 L (0.66-1.25) mg/dL Glucose 152 H (74-99) mg/dL Calcium 8.2 L (8.4-10.2) mg/dL Total Bilirubin 1.5 H (0.2-1.3) mg/dL Creatine Kinase (55-170) U/L CSF RBC (0-10) u/L CSF Glucose (40-70) mg/dL CSF Total Protein (12-60) mg/dL Microbiology - Last 24 Hours (Table) 01/24/24 10:36 CSF Gram Stain - Preliminary Cerebral Spinal Fluid CSF Culture - Preliminary Assessment and Plan Assessment: Severe encephalopathy, could be multifactorial. Metabolic/toxic encephalopathy, however many metabolic abnormality corrected with no improvement Acute hypoxic hypercapnic respiratory failure, patient unable to protect airway secondary to above, s/p intubation and mechanical ventilation Suspected seizure-like activity on 01/24 x 2 Hypernatremia. Resolved Non-STEMI with elevated troponin with some EKG changes but patient denies chest pain. Acute kidney injury, improving History of depression, psychosis and suicidal ideation Severe dehydration and hypovolemia History of chronic left leg wound, currently wound is closed, no evidence of cellulitis but mild deformity in the muscles of the left leg Elevated lactic acid Plan: Continue with ICU management Continue vent management as per pulmonary team Neurology consult in the case. Follow-up culture results, follow-up lumbar puncture results Patient started on Keppra, repeat EEG Continue with IV hydration D5 normal saline at 75 Consult infectious disease team as well Pulmonary and nephrology team consult Neurology and cardiology team consultation Labs and medication were reviewed.. Continue same treatment. Continue with symptomatic treatment. Resume home medication. Monitor labs and vitals. DVT and GI prophylaxis. Further recommendations as per clinical course of the patient DVT prophylaxis: heparin GI Prophylaxis: Pepcid Prognosis is guarded
--- NOTE | 2024-01-25 10:23 | XR ---
EXAMINATION TYPE: XR chest 1V portable DATE OF EXAM: 01/25/2024 COMPARISON: NONE HISTORY: ET tube TECHNIQUE: Single frontal view of the chest is obtained. FINDINGS: ET tube proximally 7 mm above elizabeth and could be withdrawn by a couple centimeters. NG tu be seen in the left upper quadrant. Left basilar subsegmental infiltrates and elevated hemidiaphragm. Left-sided central line seen with the tip overlying the cavoatrial junction. No pneumothorax. Degene rative changes of the spine. No overt failure. Atherosclerotic change aorta. IMPRESSION: 1. Left basilar infiltrate. 2. ET tube is somewhat low in position 7 mm above the elizabeth recommend repositioning. [facility], , 01/25/2024 10:21 AM
[2024-01-25 10:38] LABS: ABG Base Excess 0.6 mmol/L; ABG HCO3 27 mmol/L (21-25); ABG Oxygen Saturation 99.4 % (94-97); ABG PCO2 49 mmHg (35-45); ABG PH 7.35 (7.35-7.45); ABG PO2 164 mmHg (83-108); ABG TCO2 29 mmol/L (19-24); Allen Test Performed? Yes
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
[2024-01-25] MEDS: levETIRAcetam IV 500 MG/5 ML VIAL IVP SCH (11:10)
[2024-01-25] MEDS: POTASSIUM BICARBONATE/CIT AC 20 MEQ TABLET.EFF NG-TUBE SCH (11:42)
--- NOTE | 2024-01-25 12:33 | P.PN ---
Subjective patient is seen for follow-up for hypernatremia and acute kidney injury. Mentation has not improved. Questionable seizure-like activity today. Patient was intubated this morning. Serum sodium staying around 137. Serum creatinine 0.37. Good urine output. Objective - Vital Signs Vital signs: Vital Signs Temp 97.4 F L 01/25/24 12:00 Pulse 67 01/25/24 12:00 Resp 22 01/25/24 12:00 BP 95/61 01/25/24 12:00 Pulse Ox 98 01/25/24 12:00 FiO2 75 01/25/24 12:00 Intake & Output 01/24/24 01/25/24 01/25/24 18:59 06:59 18:59 Intake Total 990 1425 430.94 Output Total 600 815 180 Balance 390 610 250.94 Weight 70.6 kg 72 kg Intake: IV 0 Dextrose 5% in Water 1, 0 000 ml @ 150 mls/hr IV . Q6H40M [facility] Rx#:[id number] Intake, IV Titration 900 975 430.94 Amount Dextrose 5%-0.9% NaCl 1, 600 975 375 000 ml @ 75 mls/hr IV . [id number] [facility] Rx#:[id number] Potassium Chloride 10 meq 300 In Water For Injection 1 100ml.bag @ 100 mls/hr IVPB Q1HR [facility] Rx#: [id number] cefTRIAXone 1 gm In 50 Sodium Chloride 0.9% 50 ml @ 100 mls/hr IVPB Q24HR [facility] Rx#:[id number] propofoL 1,000 mg In 5.94 Empty Bag 1 bag @ 15 MCG/ KG/MIN 6.48 mls/hr IV . [id number] [facility] Rx#:[id number] Tube Feeding 60 270 Other 30 180 Output: Urine 600 815 180 Other: Voiding Method Indwelling Catheter Indwelling Catheter ABP, PAP, CO, CI - Last Documented Arterial Blood Pressure 91/56 - Exam patient is intubated and on the vent. He is sedated Examination of the heart S1 and S2 Examination of the lungs bilateral breath sounds are heard Abdomen is soft Examination of lower extremity shows no edema - Labs CBC & Chem 7: 01/25/24 05:48 01/25/24 05:48 Labs: Abnormal Lab Results - Last 24 Hours (Table) 01/24/24 01/25/24 01/25/24 Range/Units 10:36 05:48 05:48 WBC 21.7 H (3.8-10.6) k/uL Hgb 18.0 H (13.0-17.5) gm/dL Hct 56.7 H (39.0-53.0) % MCV 103.8 H (80.0-100.0) fL Neutrophils # 20.5 H (1.3-7.7) k/uL Lymphocytes # 0.5 L (1.0-4.8) k/uL ABG pH (7.35-7.45) ABG pCO2 (35-45) mmHg ABG O2 Saturation (94-97) % Hemoglobin (13.0-17.5) gm/dL Potassium 3.3 L (3.5-5.1) mmol/L Creatinine 0.50 L (0.66-1.25) mg/dL Glucose 152 H (74-99) mg/dL Calcium 8.2 L (8.4-10.2) mg/dL Total Bilirubin 1.5 H (0.2-1.3) mg/dL CSF RBC 28 H (0-10) u/L CSF Glucose 72 H (40-70) mg/dL CSF Total Protein 106 H (12-60) mg/dL 01/25/24 Range/Units 09:33 WBC (3.8-10.6) k/uL Hgb (13.0-17.5) gm/dL Hct (39.0-53.0) % MCV (80.0-100.0) fL Neutrophils # (1.3-7.7) k/uL Lymphocytes # (1.0-4.8) k/uL ABG pH 7.12 L* (7.35-7.45) ABG pCO2 95 H* (35-45) mmHg ABG O2 Saturation 93.2 L (94-97) % Hemoglobin 18.3 H (13.0-17.5) gm/dL Potassium (3.5-5.1) mmol/L Creatinine (0.66-1.25) mg/dL Glucose (74-99) mg/dL Calcium (8.4-10.2) mg/dL Total Bilirubin (0.2-1.3) mg/dL CSF RBC (0-10) u/L CSF Glucose (40-70) mg/dL CSF Total Protein (12-60) mg/dL Microbiology - Last 24 Hours (Table) 01/24/24 10:36 CSF Gram Stain - Preliminary Cerebral Spinal Fluid CSF Culture - Preliminary Assessment and Plan Assessment: 1. Hypernatremia with significant free water deficit, status post D5W and improved. 2. Mental status changes , etiology unclear. Patient is being followed by neurology. LP was unremarkable 3. Volume depletion 4. Acute kidney injury secondary to volume depletion, now improved. 5. History of EtOH abuse 6. History of closed head injury 7. Hypokalemia Plan: continue with free water with tube feedings Replace potassium Continue to monitor electrolytes
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
--- NOTE | 2024-01-25 12:55 | P.PCN ---
Date of Procedure: 01/25/24 Preoperative Diagnosis: Acute hypercapnic respiratory failure Postoperative Diagnosis: Same Procedure(s) Performed: Intubation, central line insertion, arterial line insertion Anesthesia: local Surgeon: Lucy Mclean Estimated Blood Loss (ml): 0 Pathology: other Condition: critical Disposition: ICU Operative Findings: Central line insertion Indication: Hemodynamic monitoring/Intravenous access. A time-out was completed verifying correct patient, procedure, site, positio eben, and implant(s) or special equipment if applicable. The patient was placed in a dependent position appropriate for central line placement based on the vein to be cannulated. The patient shoulder was prepped and draped in sterile fashion. 1% Lidocaine was used to anesthetize the surrounding skin area. A triple lumen 9F Cordis catheter was introduced into the left subclavian vein using Seldinger technique. The catheter was threaded smoothly over the guide wire and appropriate blood return was obtained. Each lumen of the catheter was evacuated of air and flushed with sterile saline. The catheter was then sutured in place to the skin and a sterile dressing applied. Perfusion to the extremity distal to the point of catheter insertion was checked and found to be adequate. Arterial line Indication: Hemodynamic monitoring. A time-out was completed verifying correct patient, procedure, site, positioning, and implant(s) or special equipment if applicable. Allens test was performed to ensure adequate perfusion. The patients left wrist was prepped and draped in sterile fashion. 1% Lidocaine was used to anesthetize the area. An 18G Arrow arterial line was introduced into the left radial artery. The catheter was threaded over the guide wire and the needle was removed with appropriate pulsatile blood return. Blood loss was minimal. The catheter was then sutured in place to the skin and a sterile dressing applied. Perfusion to the extremity distal to the point of catheter insertion was checked and found to be adequate. The patient tolerated the procedure well and there were no complications. Intubation Indication: Respiratory compromise. A time-out was completed verifying correct patient, procedure, site, positioning, and implant(s) or special equipment if applicable. The patient was positioned appropriately and a #8 endotracheal tube was placed under GlideScope. The tube was anchored at 22 cm at the teeth. Correct placement was confirmed by presence of bilateral breath sounds without air sounds in the abdomen on auscultation. An end-tidal CO2 monitor was also used to confirm tracheal placement of the ET tube. A chest x-ray was ordered to assess for pneumothorax and verify endotracheal tube placement. The patient tolerated the procedure well and there was emesis during the process. Suction was used to remove all of the gastric contents from the posterior pharynx. OG tube was also inserted.
--- NOTE | 2024-01-25 13:07 | CA ---
Transthoracic Echo Report Name: Aajy Maharaj Age: 68 Gender: M : 1955 Exam Date: 01/22/2024 08:24 Exam Location: [place] [facility] Ht (in): 72 Wt (lb): 220 Ordering Physician: Chavez Reyes MD ([id number]) Attending/Referring Phys: Rehab Specialist Mayuri Hodges RDCS Procedure CPT: Indications: NSTEMI, Cardiac Hx: Limited to assess LVEF and wall motion per Dr. Reyes Technical Quality: Very technically difficult study Contrast 1: Definity Total Dose (mL): 2 Contrast 2: Total Dose (mL): MEASUREMENTS (Male / Female) Normal Values FINDINGS Left Ventricle Unable to assess left ventricular function despite the use of image enhancement. Right Ventricle Right Atrium Left Atrium Mitral Valve Aortic Valve Tricuspid Valve Pulmonic Valve Pericardium Aorta CONCLUSIONS Patient supine, unable to roll left lateral despite use of pillows to assist. Unable to follow commands; repeatedly yelled no while shoving probe away from body. Unable to comment on left ventricular ejection fraction or any valvular disease Previewed by: Dr. Ry Early DO (Electronically Signed) Final Date: 22 January 2024 12:40
[2024-01-25] MEDS ORDERED: VANCOMYCIN IV PER PHARMACY 1 EACH MISC MISCELLANE PRN (13:27)
[2024-01-25] MEDS: SODIUM CHLORIDE 0.9% 1,000 ML IV ONE ×2 (13:30→14:44)
[2024-01-25] MEDS: VANCOMYCIN 1,250 MG in SODIUM CHLORIDE 0.9% 250 ML IVPB SCH (13:51)
[2024-01-25] MEDS: CEFEPIME 2 GM in SODIUM CHLORIDE 0.9% 100 ML IVPB SCH (17:18)
[2024-01-25] MEDS: POTASSIUM CHLORIDE 20 MEQ in WATER FOR INJECTION 1 100ML.BAG IVPB SCH (17:18)
[2024-01-25] MEDS ORDERED: Magnesium Replacement Protocol 1 EACH MISC MISCELLANE PRN (17:34)
[2024-01-25] MEDS: NOREPINEPHRINE 8 MG in SODIUM CHLORIDE 0.9% 250 ML IV SCH (17:36)
[2024-01-25] MEDS: MAGNESIUM SULFATE-D5W PMX 1 GM in DEXTROSE/WATER 1 100ML.BAG IVPB SCH (18:03)
[2024-01-25 18:32] LABS: Glucose,Whole Blood 169 mg/dL (70-110)
[2024-01-25] MEDS: CHLORHEXIDINE GLUCONATE 15 ML CUP MUCOUS MEM SCH (20:08)
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
[2024-01-26 01:52] LABS: Magnesium 2.6 mg/dL (1.6-2.3); Potassium 3.3 mmol/L (3.5-5.1)
[2024-01-26 02:11] LABS: Glucose,Whole Blood 113 mg/dL (70-110)
[2024-01-26] MEDS: POTASSIUM BICARBONATE/CIT AC 20 MEQ TABLET.EFF NG-TUBE SCH (02:57)
[2024-01-26 04:59] LABS: ALT 22 U/L (4-49); AST 27 U/L (17-59); African American GFR (CKD) >90 (>60 ml/min/1.73 sqM); Albumin 2.3 g/dL (3.5-5.0); Alkaline Phosphatase 91 U/L (38-126); Anion Gap 4 mmol/L; Blood Urea Nitrogen 10 mg/dL (9-20); Calcium 7.1 mg/dL (8.4-10.2); Carbon Dioxide 22 mmol/L (22-30); Chloride 112 mmol/L (98-107); Glucose 118 mg/dL (74-99); Magnesium 2.3 mg/dL (1.6-2.3); Non-African American GFR(CKD) >90 (>60 ml/min/1.73 sqM); Potassium 3.1 mmol/L (3.5-5.1); Sodium 138 mmol/L (137-145); Total Bilirubin 2.1 mg/dL (0.2-1.3); Total Protein 4.7 g/dL (6.3-8.2)
[2024-01-26 05:15] LABS: ABG Base Excess 2.8 mmol/L; ABG HCO3 23 mmol/L (21-25); ABG Oxygen Saturation 99.3 % (94-97); ABG PCO2 24 mmHg (35-45); ABG PO2 117 mmHg (83-108); ABG TCO2 24 mmol/L (19-24)
[2024-01-26 05:17] LABS: Basophils % (A) 0 %; Eosinophils % (A) 0 %; HCT 44.4 % (39.0-53.0); Lymphocytes # (A) 0.6 k/uL (1.0-4.8); Lymphocytes % (A) 4 %; MCH 33.4 pg (25.0-35.0); MCHC 33.2 g/dL (31.0-37.0); MCV 100.4 fL (80.0-100.0); Mean Platelet Volume 10.6; Monocytes # (A) 0.5 k/uL (0-1.0); Monocytes % (A) 3 %; Neutrophils # (A) 14.9 k/uL (1.3-7.7); Neutrophils % (A) 93 %; Platelet Count 153 k/uL (150-450); RBC 4.42 m/uL (4.30-5.90); RDW 12.5 % (11.5-15.5); WBC 16.1 k/uL (3.8-10.6)
[2024-01-26 05:19] LABS: HGB 14.7 gm/dL (13.0-17.5)
[2024-01-26 05:31] LABS: ABG PH 7.59 (7.35-7.45)
[2024-01-26 06:01] LABS: Glucose,Whole Blood 109 mg/dL (70-110)
[2024-01-26] MEDS: POTASSIUM CHLORIDE 20 MEQ in WATER FOR INJECTION 1 100ML.BAG IVPB SCH (06:06)
--- NOTE | 2024-01-26 06:10 | EEG ---
ELECTROENCEPHALOGRAM REPORT PREAMBLE: This is a 68-year-old male with altered mental status, which is worsening. EEG FINDINGS: This is a 21-channel digital EEG recorded with video component, utilizing 10/20 international system with referential and bipolar montages. This is a prolonged study performed for 1 hour. The recording start time is 7:57 a.m. on 01/25/2024 and the recording end time is 9:05 a.m. on 01/25/2024. The recording starts and continues with presence of a very severely suppressed background in bihemispheric region. Intermittent low-voltage 3 to 4 hertz delta activity is seen sporadically during the study. The background does not seem to be reactive to eye opening or closing manually. Photic driving response was not seen. Different stages of sleep were not seen. No focal or generalized epileptiform activity was seen. No electrographic seizure was recorded. IMPRESSION: This is an abnormal EEG due to background suppression and slowing, of severe degree. This is suggestive of generalized cerebral dysfunction as can be seen with toxic metabolic encephalopathy or related to diffuse structural brain abnormality. Clinical correlation is recommended. No epileptiform activity was seen. No electrographic seizure was recorded. When compared to the EEG from 01/23/2024, the background has remarkably got worse, more suppressed and slow. MMODL / IJN: [id number] /
--- NOTE | 2024-01-26 07:36 | XR ---
EXAMINATION TYPE: XR chest 1V portable DATE OF EXAM: 01/26/2024 COMPARISON: 01/25/2024 HISTORY: Post intubation TECHNIQUE: Single frontal view of the chest is obtained. FINDINGS: Left lower lobe infiltrate with small effusion progressed from prior exam. ET tube, NG tub e and central line stable. Arthropathy of the shoulders. Atherosclerotic change aorta. No overt failu re. IMPRESSION: Increasing left lower lobe consolidation and small effusion. Pneumonia in the differenti al diagnosis. [facility], , 01/26/2024 7:34 AM
--- NOTE | 2024-01-26 08:51 | P.PN ---
Subjective This is a pleasant 68 years old male with past medical history of psychosis and multiple admission for suicidal ideation, hypertension, osteoarthritis Patient brought to the emergency room because he was found by his roommate on the floor, hard to wake up. When he came to emergency room he was answering questions but looks like he is continued to be confused Patient currently opens eyes and follows simple commands but not all every command. Also he answers some questions. However he looks confused significantly. He is disoriented to time place and person. He has no insight. But he denies any pain. No headache. No dizziness. Moves arms and legs. No tingling. Patient on admission was tachycardic and tachypneic but afebrile He had mild leukocytosis, high hemoglobin at 25 and sodium 156 and creatinine 1.7. Liver enzymes moderately elevated Lactic acid 4.0 Troponin is elevated 0.09 Urine drug screen is negative Serum alcohol less than 10. CT of the head and neck is negative for acute process for either side Chest x-ray is negative for acute process and I reviewed the chest x-rays and agree EKG showing sinus tachycardia at [address] depression 01/21 Patient remains confused, he open eyes to verbal stimuli, he can tell me his name and then he goes back to sleep No abnormal movement Patient sodium 1 significantly elevated at 155, he was given D5W at 75 mL/h, repeat sodium this morning is still pending Patient looks dehydrated. Beauty Culturist Apprentice evaluated the patient for higher troponin which is thought secon torsten to dehydration however he has some ST depression in the lateral leads, neon pumper recommended heparin drip x 48 hours as well as metoprolol and Lipitor which are ordered. Yesterday I discussed the case with the neurologist on-call, he recommended to hold on consult since the patient has severe metabolic abnormality. This morning patient remains confused with no significant improvement therefore we are going to reconsult neurology service. He has elevated hemoglobin and hematocrit, most likely secondary to dehydration, keep following levels till sodium level corrected and then reassess. Abdomen looks soft, patient denies abdominal pain or chest pain. 01/22 Patient was moved to the ICU yesterday because of concerns about inability to protect airway He was able to breathe okay this morning. He remains severely confused He remains on D5W at 150 mL/h, sodium down to 152 today Creatinine back to reference range Repeat CT of the brain is negative Heparin drip was discontinued and patient placed on subcutaneous heparin 01/23 Patient is becoming more encephalopathic, he is nonverbal, does not follow command does not answer questions. This is despite correction of his hyponatremia and other metabolic abnormalities like acute kidney injury. And there is concerned about ability to protect airway so far he does not need intervention but close monitoring in the ICU Today patient underwent lumbar puncture and results Showing RBC is elevated at 28, nucleated cells are 0. Glucose slightly elevated 72 and protein 106. Cultures pending Also patient has low-grade fever and is Amandeep concentrated sample of CBC improved except for WBC remains elevated about 15.1 K, neurology service recommended to consider ID team, Patient is also history of suicidal ideation however his urine drug screen on admission showed only marijuana Prognosis remains guarded 01/24 Patient manager program management desaturated down to 70s associated with brief period of rigidness and shakiness and his eyes were wide open, this episode happened twice and lasted for short time seconds to minutes. He had EEG initially done which was unremarkable another EEG is requested today, patient was started on IV Keppra 1000 mg Also ABG shows evidence of acute hypoxic hypercapnic respiratory failure, patient was unable to protect his airway and he got intubated today. In the meantime there is no abnormal movement currently. He is afebrile this morning. Last fever was on 01/22 and it was 100 degrees which is low-grade. Labs showing leukocytosis worse 21.7, hemoglobin 18, platelet count is 188. pH 7.1, pCO2 is high at 95. Oxygen with pO2 of 86 while on 15 L. Sodium 137, potassium 3.3. Liver enzymes not significantly elevated. CSF culture permanent results are still pending 01/25 Patient yesterday could not protect his airway and he was intubated and placed on mechanical ventilation. Pulmonary/critical care team following closely and help with vent management. No seizure-like activity or abnormal movements noted. EEG done and reviewed. Neurologist on the case. Patient is currently on IV Keppra 1000 twice daily Also patient started on IV vancomycin and cefepime per ID team recommendation for suspected sepsis. Cultures are pending. Patient has no fever for the last 3 days. Leukocyte count today still mildly elevated at 16 but coming down from 21 yesterday. Electrolytes are improving. Patient remains in critical condition. Active Medications Generic Name Dose Route Start Last Admin Trade Name Freq PRN Reason Stop Dose Admin Aspirin 81 mg 01/21/24 11:30 01/26/24 08:07 Aspirin 81 Mg PO 81 mg DAILY FIFI Administration Atorvastatin Calcium 40 mg 01/21/24 21:00 01/25/24 20:08 Atorvastatin 40 Mg Tab PO 40 mg HS FIFI Administration Chlorhexidine Gluconate 15 ml 01/25/24 21:00 01/26/24 08:07 Chlorhexidine Gluconate 15 Ml Cup MUCOUS MEM 15 ml BID FIFI Administration Heparin Sodium (Porcine) 5,000 unit 01/23/24 00:00 01/26/24 08:07 Heparin Sodium,Porcine 5,000 Unit/Ml 1 Ml Vial SQ 5,000 unit Q8HR FIFI Administration Hydralazine HCl 10 mg 01/25/24 01:09 01/25/24 01:17 Hydralazine Hcl 20 Mg/Ml 1 Ml Vial IVP 10 mg Q4HR PRN Administration Blood Pressure - High Dextrose/Sodium Chloride 1,000 mls @ 75 mls/hr 01/24/24 10:00 01/26/24 00:19 Dextrose 5%-Ns Iv Soln IV 75 mls/hr .[id number] FIFI Administration Propofol 1,000 mg/ IV Solution 100 mls @ 6.48 mls/hr 01/25/24 12:00 01/26/24 03:09 IV 10 mcg/kg/min .[id number] FIFI 4.32 mls/hr Administration Protocol 15 MCG/KG/MIN Cefepime HCl 2 gm/ Sodium 100 mls @ 25 mls/hr 01/25/24 16:00 01/26/24 08:07 Chloride IVPB 25 mls/hr Q8HR FIFI Administration Protocol Vancomycin HCl 1,250 mg/ 250 mls @ 83.333 mls/hr 01/25/24 14:00 01/26/24 06:07 Sodium Chloride IVPB 83.333 mls/hr Q8H FIFI Administration Norepinephrine Bitartrate 8 mg 258 mls @ 4.18 mls/hr 01/25/24 14:45 01/25/24 17:36 / Sodium Chloride IV Not Given .Q24H FIFI Protocol 0.03 MCG/KG/MIN Potassium Chloride 20 meq/ IV 100 mls @ 50 mls/hr 01/26/24 05:45 01/26/24 08:06 Solution IVPB 01/26/24 09:44 50 mls/hr Q2H FIFI Administration Protocol Potassium Chloride 20 meq/ IV 100 mls @ 50 mls/hr 01/26/24 10:00 Solution IVPB 01/26/24 11:59 ONCE ONE Levetiracetam 1,000 mg 01/25/24 09:45 01/26/24 08:07 Levetiracetam Iv 500 Mg/5 Ml Vial IVP 1,000 mg Q12HR FIFI Administration Miscellaneous Information 1 each 01/21/24 08:10 Potassium Replacement Protocol 1 Each Misc MISCELLANE DAILY PRN Per Protocol Protocol Miscellaneous Information 0 each 01/26/24 13:00 Vancomycin Trough Due 1 Each [facility] MISCELLANE 01/26/24 13:01 DIRECTED ONE Miscellaneous Information 1 each 01/25/24 17:34 Magnesium Replacement Protocol 1 Each Misc MISCELLANE DAILY PRN Per Protocol Protocol Naloxone HCl 0.2 mg 01/20/24 20:57 Naloxone 0.4 Mg/Ml 1 Ml Vial IV Q2M PRN Opioid Reversal Pantoprazole Sodium 40 mg 01/21/24 09:00 01/26/24 08:11 Pantoprazole 40 Mg/10 Ml Vial IV 40 mg DAILY FIFI Administration Petrolatum 1 applic 01/22/24 09:17 Zinc Oxide Paste (Z-Guard) 1 Applic TOPICAL BID PRN Wound Healing Protocol Objective - Vital Signs Vital signs: Vital Signs Temp 36.0 F L 01/26/24 08:00 Pulse 60 01/26/24 08:30 Resp 21 01/26/24 08:30 BP 118/69 01/26/24 08:30 Pulse Ox 98 01/26/24 08:30 FiO2 45 01/26/24 08:15 Intake & Output 01/25/24 01/26/24 01/26/24 18:59 06:59 18:59 Intake Total 3938.089 7976.536 406 Output Total 1490 1125 155 Balance -265.724 378.536 251 Weight 76.7 kg Intake: IV 24 36 6 a-line 24 36 6 Intake, IV Titration 2978.803 4439.536 400 Amount Cefepime 2 gm In Sodium 100 Chloride 0.9% 100 ml @ 25 mls/hr IVPB Q8HR [facility] Rx# :[id number] Dextrose 5%-0.9% NaCl 1, 525 900 150 000 ml @ 75 mls/hr IV . [id number] [facility] Rx#:[id number] Magnesium Sulfate-D5w Pmx 100 300 1 gm In Dextrose/Water 1 100ml.bag @ 100 mls/hr IVPB Q1H [facility] Rx#: [id number] Potassium Chloride 20 meq 100 200 In Water For Injection 1 100ml.bag @ 50 mls/hr IVPB Q2H [facility] Rx#: [id number] Vancomycin 1,250 mg In 250 250 Sodium Chloride 0.9% 250 ml @ 83.333 mls/hr IVPB Q8H [facility] Rx#:[id number] cefTRIAXone 1 gm In 50 Sodium Chloride 0.9% 50 ml @ 100 mls/hr IVPB Q24HR [facility] Rx#:[id number] propofoL 1,000 mg In 75.276 67.536 Empty Bag 1 bag @ 15 MCG/ KG/MIN 6.48 mls/hr IV . [id number] [facility] Rx#:[id number] Output: Urine 1490 1125 155 Other: Voiding Method Indwelling Catheter Indwelling Catheter Indwelling Catheter # Bowel Movements 1 0 ABP, PAP, CO, CI - Last Documented Arterial Blood Pressure 123/61 - Exam --GENERAL: The patient is intubated and placed on mechanical ventilation HEENT: Pupils are round and equally reacting to light. EOMI. No scleral icterus. No conjunctival pallor. Normocephalic, atraumatic. No pharyngeal erythema. No thyromegaly. CARDIOVASCULAR: S1 and S2 present. No murmurs, rubs, or gallops. PULMONARY: Chest is clear to auscultation, no wheezing , no crackles. ABDOMEN: Soft, nontender, nondistended, normoactive bowel sounds. No palpable organomegaly. MUSCULOSKELETAL: No joint swelling or deformity. EXTREMITIES: No cyanosis, clubbing, or pedal edema. NEUROLOGICAL: Gross neurological examination did not reveal any focal deficits. SKIN: No rashes. no petechiae. - Labs CBC & Chem 7: 01/26/24 04:30 01/26/24 04:30 Labs: Abnormal Lab Results - Last 24 Hours (Table) 01/25/24 01/25/24 01/25/24 Range/Units 09:33 10:36 15:15 WBC (3.8-10.6) k/uL MCV (80.0-100.0) fL Neutrophils # (1.3-7.7) k/uL Lymphocytes # (1.0-4.8) k/uL ABG pH 7.12 L* (7.35-7.45) ABG pCO2 95 H* 49 H (35-45) mmHg ABG pO2 164 H (83-108) mmHg ABG HCO3 27 H (21-25) mmol/L ABG Total CO2 29 H (19-24) mmol/L ABG O2 Saturation 93.2 L 99.4 H (94-97) % Hemoglobin 18.3 H (13.0-17.5) gm/dL Potassium 2.9 L (3.5-5.1) mmol/L Chloride (98-107) mmol/L Creatinine (0.66-1.25) mg/dL Glucose (74-99) mg/dL POC Glucose (mg/dL) (70-110) mg/dL Calcium (8.4-10.2) mg/dL Magnesium (1.6-2.3) mg/dL Total Bilirubin (0.2-1.3) mg/dL Total Protein (6.3-8.2) g/dL Albumin (3.5-5.0) g/dL 01/25/24 01/25/24 01/26/24 Range/Units 15:15 18:30 00:15 WBC (3.8-10.6) k/uL MCV (80.0-100.0) fL Neutrophils # (1.3-7.7) k/uL Lymphocytes # (1.0-4.8) k/uL ABG pH 7.59 H* (7.35-7.45) ABG pCO2 24 L (35-45) mmHg ABG pO2 117 H (83-108) mmHg ABG HCO3 (21-25) mmol/L ABG Total CO2 (19-24) mmol/L ABG O2 Saturation 99.3 H (94-97) % Hemoglobin (13.0-17.5) gm/dL Potassium (3.5-5.1) mmol/L Chloride (98-107) mmol/L Creatinine (0.66-1.25) mg/dL Glucose (74-99) mg/dL POC Glucose (mg/dL) 169 H (70-110) mg/dL Calcium (8.4-10.2) mg/dL Magnesium 1.3 L (1.6-2.3) mg/dL Total Bilirubin (0.2-1.3) mg/dL Total Protein (6.3-8.2) g/dL Albumin (3.5-5.0) g/dL 01/26/24 01/26/24 01/26/24 Range/Units 01:15 02:10 04:30 WBC 16.1 H (3.8-10.6) k/uL MCV 100.4 H (80.0-100.0) fL Neutrophils # 14.9 H (1.3-7.7) k/uL Lymphocytes # 0.6 L (1.0-4.8) k/uL ABG pH (7.35-7.45) ABG pCO2 (35-45) mmHg ABG pO2 (83-108) mmHg ABG HCO3 (21-25) mmol/L ABG Total CO2 (19-24) mmol/L ABG O2 Saturation (94-97) % Hemoglobin (13.0-17.5) gm/dL Potassium 3.3 L (3.5-5.1) mmol/L Chloride (98-107) mmol/L Creatinine (0.66-1.25) mg/dL Glucose (74-99) mg/dL POC Glucose (mg/dL) 113 H (70-110) mg/dL Calcium (8.4-10.2) mg/dL Magnesium 2.6 H (1.6-2.3) mg/dL Total Bilirubin (0.2-1.3) mg/dL Total Protein (6.3-8.2) g/dL Albumin (3.5-5.0) g/dL 01/26/24 Range/Units 04:30 WBC (3.8-10.6) k/uL MCV (80.0-100.0) fL Neutrophils # (1.3-7.7) k/uL Lymphocytes # (1.0-4.8) k/uL ABG pH (7.35-7.45) ABG pCO2 (35-45) mmHg ABG pO2 (83-108) mmHg ABG HCO3 (21-25) mmol/L ABG Total CO2 (19-24) mmol/L ABG O2 Saturation (94-97) % Hemoglobin (13.0-17.5) gm/dL Potassium 3.1 L (3.5-5.1) mmol/L Chloride 112 H (98-107) mmol/L Creatinine 0.35 L (0.66-1.25) mg/dL Glucose 118 H (74-99) mg/dL POC Glucose (mg/dL) (70-110) mg/dL Calcium 7.1 L (8.4-10.2) mg/dL Magnesium (1.6-2.3) mg/dL Total Bilirubin 2.1 H (0.2-1.3) mg/dL Total Protein 4.7 L (6.3-8.2) g/dL Albumin 2.3 L (3.5-5.0) g/dL Microbiology - Last 24 Hours (Table) 01/24/24 10:36 CSF Gram Stain - Preliminary Cerebral Spinal Fluid CSF Culture - Preliminary 01/24/24 10:35 Acid Fast Bacilli Smear - Preliminary Cerebral Spinal Fluid Assessment and Plan Assessment: Severe encephalopathy, could be multifactorial. Metabolic/toxic encephalopathy, however many metabolic abnormality corrected with no improvement Acute hypoxic hypercapnic respiratory failure, patient unable to protect airway secondary to above, s/p intubation and mechanical ventilation Suspected seizure-like activity on 01/24 x 2 Suspected sepsis. Hypernatremia. Resolved Non-STEMI with elevated troponin with some EKG changes but patient denies chest pain. Acute kidney injury, improving History of depression, psychosis and suicidal ideation Severe dehydration and hypovolemia History of chronic left leg wound, currently wound is closed, no evidence of cellulitis but mild deformity in the muscles of the left leg Elevated lactic acid Plan: Continue with ICU management Continue vent management as per pulmonary team Started on IV vancomycin and cefepime. ID team consult on the case. Follow-up culture results Neurology consult in the case. Follow-up culture results, follow-up lumbar puncture results Patient started on Keppra, repeat EEG Continue with IV hydration D5 normal saline at 75 Pulmonary and nephrology team consult Neurology and cardiology team consultation Labs and medication were reviewed.. Continue same treatment. Continue with symptomatic treatment. Resume home medication. Monitor labs and vitals. DVT and GI prophylaxis. Further recommendations as per clinical course of the patient DVT prophylaxis: heparin GI Prophylaxis: Pepcid Prognosis is guarded
[2024-01-26] MEDS: POTASSIUM CHLORIDE 20 MEQ in WATER FOR INJECTION 1 100ML.BAG IVPB ONE (09:50)
[2024-01-26 10:32] LABS: VDRL, Qualitative CSF Nonreactive (Nonreactive)
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
[2024-01-26] MEDS: VANCOMYCIN TROUGH DUE 1 EACH MISC MISCELLANE ONE (12:42)
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
--- NOTE | 2024-01-26 13:38 | P.PN ---
Subjective patient is seen for follow-up for hypernatremia and acute kidney injury. Mentation has not improved. Questionable seizure-like activity today. Patient is currently on the vent. Serum sodium staying around 137-138. Serum creatinine 0.3. Good urine output. Objective - Vital Signs Vital signs: Vital Signs Temp 97.7 F 01/26/24 12:00 Pulse 73 01/26/24 12:00 Resp 21 01/26/24 12:00 BP 125/75 01/26/24 12:00 Pulse Ox 91 L 01/26/24 12:00 FiO2 55 01/26/24 12:00 Intake & Output 01/25/24 01/26/24 01/26/24 18:59 06:59 18:59 Intake Total 9201.977 6322.536 1477.412 Output Total 1490 1125 780 Balance -265.724 378.536 697.412 Weight 76.7 kg 76.7 kg Intake: IV 24 36 18 a-line 24 36 18 Intake, IV Titration 6878.534 5081.536 1429.412 Amount Cefepime 2 gm In Sodium 100 Chloride 0.9% 100 ml @ 25 mls/hr IVPB Q8HR [facility] Rx# :[id number] Dextrose 5%-0.9% NaCl 1, 525 900 450 000 ml @ 75 mls/hr IV . [id number] [facility] Rx#:[id number] Magnesium Sulfate-D5w Pmx 100 300 1 gm In Dextrose/Water 1 100ml.bag @ 100 mls/hr IVPB Q1H [facility] Rx#: [id number] Potassium Chloride 20 meq 200 In Water For Injection 1 100ml.bag @ 50 mls/hr IVPB ONCE ONE Rx#: [id number] Potassium Chloride 20 meq 100 200 In Water For Injection 1 100ml.bag @ 50 mls/hr IVPB Q2H [facility] Rx#: [id number] Vancomycin 1,250 mg In 250 750 Sodium Chloride 0.9% 250 ml @ 83.333 mls/hr IVPB Q8H [facility] Rx#:[id number] cefTRIAXone 1 gm In 50 Sodium Chloride 0.9% 50 ml @ 100 mls/hr IVPB Q24HR [facility] Rx#:[id number] propofoL 1,000 mg In 75.276 67.536 29.412 Empty Bag 1 bag @ 15 MCG/ KG/MIN 6.48 mls/hr IV . [id number] [facility] Rx#:[id number] Tube Feeding 30 Output: Urine 1490 1125 780 Other: Voiding Method Indwelling Catheter Indwelling Catheter Indwelling Catheter # Bowel Movements 1 0 ABP, PAP, CO, CI - Last Documented Arterial Blood Pressure 139/61 - Exam patient is sedated and on the vent. Examination of the heart S1 and S2 Examination of the lungs bilateral breath sounds are heard Abdomen is soft Examination of lower extremity shows no edema - Labs CBC & Chem 7: 01/26/24 04:30 01/26/24 12:30 Labs: Abnormal Lab Results - Last 24 Hours (Table) 01/25/24 01/25/24 01/25/24 Range/Units 10:36 15:15 15:15 WBC (3.8-10.6) k/uL MCV (80.0-100.0) fL Neutrophils # (1.3-7.7) k/uL Lymphocytes # (1.0-4.8) k/uL ABG pH (7.35-7.45) ABG pCO2 49 H (35-45) mmHg ABG pO2 164 H (83-108) mmHg ABG HCO3 27 H (21-25) mmol/L ABG Total CO2 29 H (19-24) mmol/L ABG O2 Saturation 99.4 H (94-97) % Potassium 2.9 L (3.5-5.1) mmol/L Chloride (98-107) mmol/L Creatinine (0.66-1.25) mg/dL Glucose (74-99) mg/dL POC Glucose (mg/dL) (70-110) mg/dL Calcium (8.4-10.2) mg/dL Magnesium 1.3 L (1.6-2.3) mg/dL Total Bilirubin (0.2-1.3) mg/dL Total Protein (6.3-8.2) g/dL Albumin (3.5-5.0) g/dL 01/25/24 01/26/24 01/26/24 Range/Units 18:30 00:15 01:15 WBC (3.8-10.6) k/uL MCV (80.0-100.0) fL Neutrophils # (1.3-7.7) k/uL Lymphocytes # (1.0-4.8) k/uL ABG pH 7.59 H* (7.35-7.45) ABG pCO2 24 L (35-45) mmHg ABG pO2 117 H (83-108) mmHg ABG HCO3 (21-25) mmol/L ABG Total CO2 (19-24) mmol/L ABG O2 Saturation 99.3 H (94-97) % Potassium 3.3 L (3.5-5.1) mmol/L Chloride (98-107) mmol/L Creatinine (0.66-1.25) mg/dL Glucose (74-99) mg/dL POC Glucose (mg/dL) 169 H (70-110) mg/dL Calcium (8.4-10.2) mg/dL Magnesium 2.6 H (1.6-2.3) mg/dL Total Bilirubin (0.2-1.3) mg/dL Total Protein (6.3-8.2) g/dL Albumin (3.5-5.0) g/dL 01/26/24 01/26/24 01/26/24 Range/Units 02:10 04:30 04:30 WBC 16.1 H (3.8-10.6) k/uL MCV 100.4 H (80.0-100.0) fL Neutrophils # 14.9 H (1.3-7.7) k/uL Lymphocytes # 0.6 L (1.0-4.8) k/uL ABG pH (7.35-7.45) ABG pCO2 (35-45) mmHg ABG pO2 (83-108) mmHg ABG HCO3 (21-25) mmol/L ABG Total CO2 (19-24) mmol/L ABG O2 Saturation (94-97) % Potassium 3.1 L (3.5-5.1) mmol/L Chloride 112 H (98-107) mmol/L Creatinine 0.35 L (0.66-1.25) mg/dL Glucose 118 H (74-99) mg/dL POC Glucose (mg/dL) 113 H (70-110) mg/dL Calcium 7.1 L (8.4-10.2) mg/dL Magnesium (1.6-2.3) mg/dL Total Bilirubin 2.1 H (0.2-1.3) mg/dL Total Protein 4.7 L (6.3-8.2) g/dL Albumin 2.3 L (3.5-5.0) g/dL Microbiology - Last 24 Hours (Table) 01/25/24 10:17 Gram Stain - Preliminary Sputum Sputum Culture - Preliminary 01/24/24 10:36 CSF Gram Stain - Preliminary Cerebral Spinal Fluid CSF Culture - Preliminary 01/24/24 10:35 Acid Fast Bacilli Smear - Preliminary Cerebral Spinal Fluid Assessment and Plan Assessment: 1. Hypernatremia with significant free water deficit, status post D5W and improved. 2. Mental status changes , etiology unclear. Patient is being followed by neurology. LP was unremarkable 3. Volume depletion 4. Acute kidney injury secondary to volume depletion, now improved. 5. History of EtOH abuse 6. History of closed head injury 7. Hypokalemia status post replacement Plan: continue with free water with tube feedings continue D5 0.9 Continue to monitor electrolytes
[2024-01-26] MEDS: POTASSIUM CHLORIDE 20 MEQ in WATER FOR INJECTION 1 100ML.BAG IVPB STA (14:33)
[2024-01-26] MEDS ORDERED: DEXTROSE 50% SYRINGE 50 ML IVP PRN ×2 (14:36)
--- NOTE | 2024-01-26 14:56 | P.PN ---
Subjective Progress Note Date: 01/26/24 Principal diagnosis: Reason for follow-up is sepsis possible aspiration pneumonia Patient is a 68-year-old male with a past medical history significant for COPD hypertension [place] osteoarthritis patient did have a history of necrotizing infection of the left lower extremity with initial admission to hospital mental status changes subsequently have worsening of his respiratory status requiring intubation and concern for possible aspiration pneumonia. On today's evaluation that is 01/26/2024,the patient has been afebrile patient is hemodynamically stable requiring any pressor support FiO2 is down to 45% no vomiting diarrhea any change reported by the nursing staff. Patient white count did come down to 16.1 from yesterday afternoon 1000 creatinine 0.35 cultures are currently pending Objective - Vital Signs Vital signs: Vital Signs Temp 97.7 F 01/26/24 12:00 Pulse 73 01/26/24 12:00 Resp 21 01/26/24 12:00 BP 125/75 01/26/24 12:00 Pulse Ox 91 L 01/26/24 12:00 FiO2 55 01/26/24 12:00 Intake & Output 01/25/24 01/26/24 01/26/24 18:59 06:59 18:59 Intake Total 0057.119 7362.536 1477.412 Output Total 1490 1125 780 Balance -265.724 378.536 697.412 Weight 76.7 kg 76.7 kg Intake: IV 24 36 18 a-line 24 36 18 Intake, IV Titration 9419.519 1068.536 1429.412 Amount Cefepime 2 gm In Sodium 100 Chloride 0.9% 100 ml @ 25 mls/hr IVPB Q8HR [facility] Rx# :[id number] Dextrose 5%-0.9% NaCl 1, 525 900 450 000 ml @ 75 mls/hr IV . [id number] [facility] Rx#:[id number] Magnesium Sulfate-D5w Pmx 100 300 1 gm In Dextrose/Water 1 100ml.bag @ 100 mls/hr IVPB Q1H [facility] Rx#: [id number] Potassium Chloride 20 meq 200 In Water For Injection 1 100ml.bag @ 50 mls/hr IVPB ONCE ONE Rx#: [id number] Potassium Chloride 20 meq 100 200 In Water For Injection 1 100ml.bag @ 50 mls/hr IVPB Q2H [facility] Rx#: [id number] Vancomycin 1,250 mg In 250 750 Sodium Chloride 0.9% 250 ml @ 83.333 mls/hr IVPB Q8H [facility] Rx#:[id number] cefTRIAXone 1 gm In 50 Sodium Chloride 0.9% 50 ml @ 100 mls/hr IVPB Q24HR [facility] Rx#:[id number] propofoL 1,000 mg In 75.276 67.536 29.412 Empty Bag 1 bag @ 15 MCG/ KG/MIN 6.48 mls/hr IV . [id number] [facility] Rx#:[id number] Tube Feeding 30 Output: Urine 1490 1125 780 Other: Voiding Method Indwelling Catheter Indwelling Catheter Indwelling Catheter # Bowel Movements 1 0 ABP, PAP, CO, CI - Last Documented Arterial Blood Pressure 139/61 - Exam GENERAL DESCRIPTION: An elderly male intubated on the vent RESPIRATORY SYSTEM: Unlabored breathing , decreased breath sounds at bases HEART: S1 S2 regular rate and rhythm , ABDOMEN: Soft , no tenderness EXTREMITIES: No edema feet - Labs CBC & Chem 7: 01/26/24 04:30 01/26/24 12:30 Labs: Abnormal Lab Results - Last 24 Hours (Table) 01/25/24 01/25/24 01/25/24 Range/Units 10:36 15:15 15:15 WBC (3.8-10.6) k/uL MCV (80.0-100.0) fL Neutrophils # (1.3-7.7) k/uL Lymphocytes # (1.0-4.8) k/uL ABG pH (7.35-7.45) ABG pCO2 49 H (35-45) mmHg ABG pO2 164 H (83-108) mmHg ABG HCO3 27 H (21-25) mmol/L ABG Total CO2 29 H (19-24) mmol/L ABG O2 Saturation 99.4 H (94-97) % Potassium 2.9 L (3.5-5.1) mmol/L Chloride (98-107) mmol/L Creatinine (0.66-1.25) mg/dL Glucose (74-99) mg/dL POC Glucose (mg/dL) (70-110) mg/dL Calcium (8.4-10.2) mg/dL Magnesium 1.3 L (1.6-2.3) mg/dL Total Bilirubin (0.2-1.3) mg/dL Total Protein (6.3-8.2) g/dL Albumin (3.5-5.0) g/dL 01/25/24 01/26/24 01/26/24 Range/Units 18:30 00:15 01:15 WBC (3.8-10.6) k/uL MCV (80.0-100.0) fL Neutrophils # (1.3-7.7) k/uL Lymphocytes # (1.0-4.8) k/uL ABG pH 7.59 H* (7.35-7.45) ABG pCO2 24 L (35-45) mmHg ABG pO2 117 H (83-108) mmHg ABG HCO3 (21-25) mmol/L ABG Total CO2 (19-24) mmol/L ABG O2 Saturation 99.3 H (94-97) % Potassium 3.3 L (3.5-5.1) mmol/L Chloride (98-107) mmol/L Creatinine (0.66-1.25) mg/dL Glucose (74-99) mg/dL POC Glucose (mg/dL) 169 H (70-110) mg/dL Calcium (8.4-10.2) mg/dL Magnesium 2.6 H (1.6-2.3) mg/dL Total Bilirubin (0.2-1.3) mg/dL Total Protein (6.3-8.2) g/dL Albumin (3.5-5.0) g/dL 01/26/24 01/26/24 01/26/24 Range/Units 02:10 04:30 04:30 WBC 16.1 H (3.8-10.6) k/uL MCV 100.4 H (80.0-100.0) fL Neutrophils # 14.9 H (1.3-7.7) k/uL Lymphocytes # 0.6 L (1.0-4.8) k/uL ABG pH (7.35-7.45) ABG pCO2 (35-45) mmHg ABG pO2 (83-108) mmHg ABG HCO3 (21-25) mmol/L ABG Total CO2 (19-24) mmol/L ABG O2 Saturation (94-97) % Potassium 3.1 L (3.5-5.1) mmol/L Chloride 112 H (98-107) mmol/L Creatinine 0.35 L (0.66-1.25) mg/dL Glucose 118 H (74-99) mg/dL POC Glucose (mg/dL) 113 H (70-110) mg/dL Calcium 7.1 L (8.4-10.2) mg/dL Magnesium (1.6-2.3) mg/dL Total Bilirubin 2.1 H (0.2-1.3) mg/dL Total Protein 4.7 L (6.3-8.2) g/dL Albumin 2.3 L (3.5-5.0) g/dL Microbiology - Last 24 Hours (Table) 01/25/24 10:17 Gram Stain - Preliminary Sputum Sputum Culture - Preliminary 01/24/24 10:36 CSF Gram Stain - Preliminary Cerebral Spinal Fluid CSF Culture - Preliminary 01/24/24 10:35 Acid Fast Bacilli Smear - Preliminary Cerebral Spinal Fluid Assessment and Plan (1) Sepsis Current Visit: Yes Status: Acute Code(s): A41.9 - SEPSIS, UNSPECIFIED ORGANISM SNOMED Code(s): 37658511 (2) Aspiration pneumonia Current Visit: Yes Status: Acute Code(s): J69.0 - PNEUMONITIS DUE TO INHALATION OF FOOD AND VOMIT SNOMED Code(s): 614828212 Plan: 1patient with an episode of sepsis in this patient who did have significant evaded white count patient also have mild hypotension and source is likely aspiration pneumonitis and the patient noted to have significant vomiting at the time of intubation with evidence of left basilar infiltrate on the chest x-ray will need to cover for resistant gram-positive as well as gram-negative pathogen 2-penicillin allergy limit number of antibiotics safe to use 3-blood and sputum cultures are currently pending 4patient to continue with cefepime and vancomycin pharmacy to dose while waiting for the workup to be completed Dictation was produced using [employer] dictation software. please excuse any grammatical, word or spelling errors. Time with Patient: Less than 30
--- NOTE | 2024-01-26 14:58 | CA ---
Transthoracic Echo Report Name: Ajay Maharaj Age: 68 Gender: M : 1955 Exam Date: 01/25/2024 14:46 Exam Location: [facility] Ht (in): 72 Wt (lb): 158 Ordering Physician: Lucy Mclean MD Attending/Referring Phys: [employer] Desirae Liu RDCS Procedure CPT: Indications: altered mental status Cardiac Hx: Technical Quality: Fair Contrast 1: Total Dose (mL): Contrast 2: Total Dose (mL): MEASUREMENTS (Male / Female) Normal Values 2D ECHO LV Diastolic Diameter PLAX 4.5 cm 4.2 - 5.9 / 3.9 - 5.3 cm LV Systolic Diameter PLAX 2.6 cm IVS Diastolic Thickness 1.3 cm 0.6 - 1.0 / 0.6 - 0.9 cm LVPW Diastolic Thickness 0.9 cm 0.6 - 1.0 / 0.6 - 0.9 cm LV Relative Wall Thickness 0.5 RV Internal Dim ED PLAX 3.7 cm LA Systolic Diameter LX 3.2 cm 3.0 - 4.0 / 2.7 - 3.8 cm LV Diastolic Volume MOD BP 53.7 cm??? 67 - 155 / 56 - 104 cm??? LV Systolic Volume MOD BP 18.7 cm??? 22 - 58 / 19 - 49 cm??? LV Ejection Fraction MOD BP 65.2 % >= 55 % LV Cardiac Index MOD BP 1049.6 cm???/min???m??? LV Diastolic Volume MOD 4C 56.6 cm??? LV Systolic Volume MOD 4C 20.0 cm??? LV Ejection Fraction MOD 4C 64.6 % LV Cardiac Index MOD 4C 1094.9 cm???/min???m??? LV Diastolic Length 4C 7.7 cm LV Systolic Length 4C 6.8 cm LV Diastolic Volume MOD 2C 49.6 cm??? LV Systolic Volume MOD 2C 17.4 cm??? LV Ejection Fraction MOD 2C 65.0 % LV Cardiac Index MOD 2C 965.5 cm???/min???m??? LV Diastolic Length 2C 7.4 cm LV Systolic Length 2C 6.6 cm LA Volume 80.3 cm??? 18 - 58 / 22 - 52 cm??? LA Volume Index 42.2 cm???/m??? 16 - 28 cm???/m??? M-MODE Aortic Root Diameter MM 4.1 cm LA Systolic Diameter MM 3.5 cm LA Ao Ratio MM 0.9 AV Cusp Separation MM 2.4 cm DOPPLER TR Peak Velocity 222.6 cm/s TR Peak Gradient 19.8 mmHg Right Ventricular Systolic Press 29.3 mmHg FINDINGS Left Ventricle Left ventricular ejection fraction is estimated at 55-60 %. Mildly increased septal wall thickness. Normal left ventricular systolic function with no obvious regional wall motion abnormalities. Left ventricular cavity size normal. Right Ventricle Mild right ventricular dilatation. Right ventricular systolic pressure within normal limits. Right Atrium Moderate right atrial dilatation. Left Atrium Severely increased left atrial volume. Mildly increased left atrial area. Mitral Valve Aortic Valve Trileaflet aortic valve. Tricuspid Valve Pulmonic Valve Pericardium No pericardial or pleural effusion. Aorta Aorta at the level of the sinuses of valsalva (root) normal. CONCLUSIONS Left ventricular ejection fraction 55-60% Mildly increased left ventricular wall thickness RVSP normal Mild dilated left atrium No pericardial effusion Previewed by: Dr. Ry Early DO (Electronically Signed) Final Date: 26 January 2024 14:56
[2024-01-26 18:18] LABS: Glucose,Whole Blood 121 mg/dL (70-110)
[2024-01-26] MEDS: INSULIN ASPART (NovoLOG) 100 UNIT/ML VIAL SQ SCH (18:28)
[2024-01-27 00:45] LABS: Glucose,Whole Blood 118 mg/dL (70-110)
[2024-01-27 05:16] LABS: Glucose,Whole Blood 135 mg/dL (70-110)
[2024-01-27 05:28] LABS: HCT 49.5 % (39.0-53.0); HGB 16.3 gm/dL (13.0-17.5); MCH 33.4 pg (25.0-35.0); MCHC 32.9 g/dL (31.0-37.0); MCV 101.7 fL (80.0-100.0); Platelet Count 167 k/uL (150-450); RBC 4.87 m/uL (4.30-5.90); RDW 12.8 % (11.5-15.5); WBC 13.2 k/uL (3.8-10.6)
[2024-01-27 05:47] LABS: African American GFR (CKD) >90 (>60 ml/min/1.73 sqM); Anion Gap 2 mmol/L; Blood Urea Nitrogen 10 mg/dL (9-20); Calcium 7.2 mg/dL (8.4-10.2); Carbon Dioxide 26 mmol/L (22-30); Chloride 111 mmol/L (98-107); Glucose 141 mg/dL (74-99); Non-African American GFR(CKD) >90 (>60 ml/min/1.73 sqM); Potassium 3.2 mmol/L (3.5-5.1); Sodium 139 mmol/L (137-145)
[2024-01-27 06:21] LABS: ABG Base Excess 0.8 mmol/L; ABG HCO3 26 mmol/L (21-25); ABG Oxygen Saturation 98.8 % (94-97); ABG PCO2 40 mmHg (35-45); ABG PH 7.41 (7.35-7.45); ABG PO2 112 mmHg (83-108); ABG TCO2 27 mmol/L (19-24); Allen Test Performed? Yes
[2024-01-27] MEDS: POTASSIUM BICARBONATE/CIT AC 20 MEQ TABLET.EFF NG-TUBE SCH ×2 (06:29→12:59)
--- NOTE | 2024-01-27 06:41 | XR ---
EXAMINATION TYPE: XR chest 1V portable DATE OF EXAM: 01/27/2024 COMPARISON: 01/26/2024 HISTORY: Tube placement TECHNIQUE: Single frontal view of the chest is obtained. FINDINGS: There is an ET tube approximately 7.8 cm above the elizabeth. There is an NG tube in stomach. There is l eft-sided central venous catheter tip in the SVC/RA junction. There is increasing opacification in the left lower lobe obscuring left hemidiaphragm consistent with a combination of pleural effusion and possibly pneumonia or atelectasis. There is a new focal opacit y in the left upper lobe as well. The right lung is clear. No pneumothorax. The osseous structures are intact. IMPRESSION: 1. ET tube 7.8 cm above the elizabeth. NG tube within the stomach. Left-sided PICC line in the SVC/RA ju nction. 2. Worsening opacification in the left lower lobe as described above.New Small focal opacity in the l eft upper lobe. . [facility], , 01/27/2024 6:39 AM
[2024-01-27] MEDS: FUROSEMIDE 10 MG/ML 4 ML VIAL IV STA (08:51)
[2024-01-27 11:51] LABS: Glucose,Whole Blood 124 mg/dL (70-110)
--- NOTE | 2024-01-27 11:53 | P.PN ---
Subjective patient is seen for follow-up for hypernatremia and acute kidney injury. Renal function has improved and creatinine is at 0.3. Serum sodium has been stable and staying at 137-139. patient remains on the vent. Objective - Vital Signs Vital signs: Vital Signs Temp 97.8 F 01/27/24 08:00 Pulse 68 01/27/24 11:00 Resp 14 01/27/24 11:00 BP 126/77 01/27/24 11:00 Pulse Ox 97 01/27/24 11:00 FiO2 40 01/27/24 11:41 Intake & Output 01/26/24 01/27/24 01/27/24 18:59 06:59 18:59 Intake Total 2105.412 2516 660 Output Total 1085 1075 1785 Balance 6101.341 0422 -1125 Weight 76.7 kg 78.6 kg Intake: IV 36 1211 490 Cefepime 2 gm In Sodium 100 100 Chloride 0.9% 100 ml @ 25 mls/hr IVPB Q8HR [facility] Rx# :[id number] Dextrose 5%-0.9% NaCl 1, 825 375 000 ml @ 75 mls/hr IV . [id number] [facility] Rx#:[id number] Vancomycin 1,250 mg In 250 Sodium Chloride 0.9% 250 ml @ 83.333 mls/hr IVPB Q8H [facility] Rx#:[id number] a-line 36 36 15 Intake, IV Titration 1979.412 675 Amount Dextrose 5%-0.9% NaCl 1, 900 675 000 ml @ 75 mls/hr IV . [id number] [facility] Rx#:[id number] Potassium Chloride 20 meq 200 In Water For Injection 1 100ml.bag @ 50 mls/hr IVPB ONCE ONE Rx#: [id number] Potassium Chloride 20 meq 100 In Water For Injection 1 100ml.bag @ 50 mls/hr IVPB Q2H [facility] Rx#: [id number] Vancomycin 1,250 mg In 750 Sodium Chloride 0.9% 250 ml @ 83.333 mls/hr IVPB Q8H [facility] Rx#:[id number] propofoL 1,000 mg In 29.412 Empty Bag 1 bag @ 15 MCG/ KG/MIN 6.48 mls/hr IV . [id number] [facility] Rx#:[id number] Tube Feeding 90 290 140 Lipid 250 Vancomycin 1,250 mg In 250 Sodium Chloride 0.9% 250 ml @ 83.333 mls/hr IVPB Q8H [facility] Rx#:[id number] Other 90 30 Output: Urine 1085 1075 1785 Other: Voiding Method Indwelling Catheter Indwelling Catheter Indwelling Catheter # Bowel Movements 0 ABP, PAP, CO, CI - Last Documented Arterial Blood Pressure 118/54 - Exam patient is sedated and on the vent. Examination of the heart S1 and S2 Examination of the lungs bilateral breath sounds are heard Abdomen is soft Examination of lower extremity shows no edema - Labs CBC & Chem 7: 01/27/24 05:15 01/27/24 05:15 Labs: Abnormal Lab Results - Last 24 Hours (Table) 01/26/24 01/27/24 01/27/24 Range/Units 18:17 00:43 05:14 WBC (3.8-10.6) k/uL MCV (80.0-100.0) fL ABG pO2 (83-108) mmHg ABG HCO3 (21-25) mmol/L ABG Total CO2 (19-24) mmol/L ABG O2 Saturation (94-97) % Potassium (3.5-5.1) mmol/L Chloride (98-107) mmol/L Creatinine (0.66-1.25) mg/dL Glucose (74-99) mg/dL POC Glucose (mg/dL) 121 H 118 H 135 H (70-110) mg/dL Calcium (8.4-10.2) mg/dL 01/27/24 01/27/24 01/27/24 Range/Units 05:15 05:15 06:13 WBC 13.2 H (3.8-10.6) k/uL MCV 101.7 H (80.0-100.0) fL ABG pO2 112 H (83-108) mmHg ABG HCO3 26 H (21-25) mmol/L ABG Total CO2 27 H (19-24) mmol/L ABG O2 Saturation 98.8 H (94-97) % Potassium 3.2 L (3.5-5.1) mmol/L Chloride 111 H (98-107) mmol/L Creatinine 0.32 L (0.66-1.25) mg/dL Glucose 141 H (74-99) mg/dL POC Glucose (mg/dL) (70-110) mg/dL Calcium 7.2 L (8.4-10.2) mg/dL Microbiology - Last 24 Hours (Table) 01/25/24 10:17 Gram Stain - Final Sputum Sputum Culture - Final Klebsiella pneumoniae 01/25/24 15:30 Blood Culture - Preliminary Blood 01/24/24 10:36 CSF Gram Stain - Preliminary Cerebral Spinal Fluid CSF Culture - Preliminary Assessment and Plan Assessment: 1. Hypernatremia with significant free water deficit, status post D5W and improved. 2. Mental status changes , etiology unclear. Patient is being followed by neurology. LP was unremarkable 3. Volume depletion 4. Acute kidney injury secondary to volume depletion, now improved. 5. History of EtOH abuse 6. History of closed head injury 7. Hypokalemia status post replacement Plan: replace potassium continue D5 0.9 Continue to monitor electrolytes We will sign off
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
--- NOTE | 2024-01-27 13:23 | P.PN ---
Subjective This is a pleasant 68 years old male with past medical history of psychosis and multiple admission for suicidal ideation, hypertension, osteoarthritis Patient brought to the emergency room because he was found by his roommate on the floor, hard to wake up. When he came to emergency room he was answering questions but looks like he is continued to be confused Patient currently opens eyes and follows simple commands but not all every command. Also he answers some questions. However he looks confused significantly. He is disoriented to time place and person. He has no insight. But he denies any pain. No headache. No dizziness. Moves arms and legs. No tingling. Patient on admission was tachycardic and tachypneic but afebrile He had mild leukocytosis, high hemoglobin at 25 and sodium 156 and creatinine 1.7. Liver enzymes moderately elevated Lactic acid 4.0 Troponin is elevated 0.09 Urine drug screen is negative Serum alcohol less than 10. CT of the head and neck is negative for acute process for either side Chest x-ray is negative for acute process and I reviewed the chest x-rays and agree EKG showing sinus tachycardia at [address] depression 01/21 Patient remains confused, he open eyes to verbal stimuli, he can tell me his name and then he goes back to sleep No abnormal movement Patient sodium 1 significantly elevated at 155, he was given D5W at 75 mL/h, repeat sodium this morning is still pending Patient looks dehydrated. Supervisor [employer] evaluated the patient for higher troponin which is thought secon torsten to dehydration however he has some ST depression in the lateral leads, carpenter assistant installer recommended heparin drip x 48 hours as well as metoprolol and Lipitor which are ordered. Yesterday I discussed the case with the neurologist on-call, he recommended to hold on consult since the patient has severe metabolic abnormality. This morning patient remains confused with no significant improvement therefore we are going to reconsult neurology service. He has elevated hemoglobin and hematocrit, most likely secondary to dehydration, keep following levels till sodium level corrected and then reassess. Abdomen looks soft, patient denies abdominal pain or chest pain. 01/22 Patient was moved to the ICU yesterday because of concerns about inability to protect airway He was able to breathe okay this morning. He remains severely confused He remains on D5W at 150 mL/h, sodium down to 152 today Creatinine back to reference range Repeat CT of the brain is negative Heparin drip was discontinued and patient placed on subcutaneous heparin 01/23 Patient is becoming more encephalopathic, he is nonverbal, does not follow command does not answer questions. This is despite correction of his hyponatremia and other metabolic abnormalities like acute kidney injury. And there is concerned about ability to protect airway so far he does not need intervention but close monitoring in the ICU Today patient underwent lumbar puncture and results Showing RBC is elevated at 28, nucleated cells are 0. Glucose slightly elevated 72 and protein 106. 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 He had EEG initially done which was unremarkable another EEG is requested today, patient was started on IV Keppra 1000 mg Also ABG shows evidence of acute hypoxic hypercapnic respiratory failure, patient was unable to protect his airway and he got intubated today. In the meantime there is no abnormal movement currently. He is afebrile this morning. Last fever was on 01/22 and it was 100 degrees which is low-grade. Labs showing leukocytosis worse 21.7, hemoglobin 18, platelet count is 188. pH 7.1, pCO2 is high at 95. Oxygen with pO2 of 86 while on 15 L. Sodium 137, potassium 3.3. Liver enzymes not significantly elevated. CSF culture permanent results are still pending 01/25 Patient yesterday could not protect his airway and he was intubated and placed on mechanical ventilation. Pulmonary/critical care team following closely and help with vent management. No seizure-like activity or abnormal movements noted. EEG done and reviewed. Neurologist on the case. Patient is currently on IV Keppra 1000 twice daily Also patient started on IV vancomycin and cefepime per ID team recommendation for suspected sepsis. Cultures are pending. Patient has no fever for the last 3 days. Leukocyte count today still mildly elevated at 16 but coming down from 21 yesterday. Electrolytes are improving. Patient remains in critical condition. 02/26 Patient remains in the ICU intubated and on mechanical ventilation He is currently covered with IV vancomycin and cefepime, for suspected pneumonia. Nasal culture growing MRSA and sputum culture growing Klebsiella pneumonia Objective - Vital Signs Vital signs: Vital Signs Temp 98.4 F 01/27/24 12:00 Pulse 74 01/27/24 13:00 Resp 14 01/27/24 13:00 BP 123/76 01/27/24 13:00 Pulse Ox 98 01/27/24 13:00 FiO2 40 01/27/24 12:00 Intake & Output 01/26/24 01/27/24 01/27/24 18:59 06:59 18:59 Intake Total 2105.412 2516 926 Output Total 1085 1075 2015 Balance 6698.342 8083 -1086 Weight 76.7 kg 78.6 kg Intake: IV 36 1211 646 Cefepime 2 gm In Sodium 100 100 Chloride 0.9% 100 ml @ 25 mls/hr IVPB Q8HR [facility] Rx# :[id number] Dextrose 5%-0.9% NaCl 1, 825 525 000 ml @ 75 mls/hr IV . [id number] [facility] Rx#:[id number] Vancomycin 1,250 mg In 250 Sodium Chloride 0.9% 250 ml @ 83.333 mls/hr IVPB Q8H [facility] Rx#:[id number] a-line 36 36 21 Intake, IV Titration 1979.412 675 Amount Dextrose 5%-0.9% NaCl 1, 900 675 000 ml @ 75 mls/hr IV . [id number] [facility] Rx#:[id number] Potassium Chloride 20 meq 200 In Water For Injection 1 100ml.bag @ 50 mls/hr IVPB ONCE ONE Rx#: [id number] Potassium Chloride 20 meq 100 In Water For Injection 1 100ml.bag @ 50 mls/hr IVPB Q2H [facility] Rx#: [id number] Vancomycin 1,250 mg In 750 Sodium Chloride 0.9% 250 ml @ 83.333 mls/hr IVPB Q8H [facility] Rx#:[id number] propofoL 1,000 mg In 29.412 Empty Bag 1 bag @ 15 MCG/ KG/MIN 6.48 mls/hr IV . [id number] [facility] Rx#:[id number] Tube Feeding 90 290 220 Lipid 250 Vancomycin 1,250 mg In 250 Sodium Chloride 0.9% 250 ml @ 83.333 mls/hr IVPB Q8H [facility] Rx#:[id number] Other 90 60 Output: Urine 1085 1075 2015 Other: Voiding Method Indwelling Catheter Indwelling Catheter Indwelling Catheter # Bowel Movements 0 ABP, PAP, CO, CI - Last Documented Arterial Blood Pressure 133/60 - Exam --GENERAL: The patient is intubated and placed on mechanical ventilation HEENT: Pupils are round and equally reacting to light. EOMI. No scleral icterus. No conjunctival pallor. Normocephalic, atraumatic. No pharyngeal erythema. No thyromegaly. CARDIOVASCULAR: S1 and S2 present. No murmurs, rubs, or gallops. PULMONARY: Chest is clear to auscultation, no wheezing , no crackles. ABDOMEN: Soft, nontender, nondistended, normoactive bowel sounds. No palpable organomegaly. MUSCULOSKELETAL: No joint swelling or deformity. EXTREMITIES: No cyanosis, clubbing, or pedal edema. NEUROLOGICAL: Gross neurological examination did not reveal any focal deficits. SKIN: No rashes. no petechiae. - Labs CBC & Chem 7: 01/27/24 05:15 01/27/24 12:00 Labs: Abnormal Lab Results - Last 24 Hours (Table) 01/26/24 01/27/24 01/27/24 Range/Units 18:17 00:43 05:14 WBC (3.8-10.6) k/uL MCV (80.0-100.0) fL ABG pO2 (83-108) mmHg ABG HCO3 (21-25) mmol/L ABG Total CO2 (19-24) mmol/L ABG O2 Saturation (94-97) % Potassium (3.5-5.1) mmol/L Chloride (98-107) mmol/L Creatinine (0.66-1.25) mg/dL Glucose (74-99) mg/dL POC Glucose (mg/dL) 121 H 118 H 135 H (70-110) mg/dL Calcium (8.4-10.2) mg/dL 01/27/24 01/27/24 01/27/24 Range/Units 05:15 05:15 06:13 WBC 13.2 H (3.8-10.6) k/uL MCV 101.7 H (80.0-100.0) fL ABG pO2 112 H (83-108) mmHg ABG HCO3 26 H (21-25) mmol/L ABG Total CO2 27 H (19-24) mmol/L ABG O2 Saturation 98.8 H (94-97) % Potassium 3.2 L (3.5-5.1) mmol/L Chloride 111 H (98-107) mmol/L Creatinine 0.32 L (0.66-1.25) mg/dL Glucose 141 H (74-99) mg/dL POC Glucose (mg/dL) (70-110) mg/dL Calcium 7.2 L (8.4-10.2) mg/dL 01/27/24 01/27/24 Range/Units 11:49 12:00 WBC (3.8-10.6) k/uL MCV (80.0-100.0) fL ABG pO2 (83-108) mmHg ABG HCO3 (21-25) mmol/L ABG Total CO2 (19-24) mmol/L ABG O2 Saturation (94-97) % Potassium 3.4 L (3.5-5.1) mmol/L Chloride (98-107) mmol/L Creatinine (0.66-1.25) mg/dL Glucose (74-99) mg/dL POC Glucose (mg/dL) 124 H (70-110) mg/dL Calcium (8.4-10.2) mg/dL Microbiology - Last 24 Hours (Table) 01/25/24 17:20 Nasal Screen MRSA/MSSA - Final Nasal Swab Methicillin resist S. aureus 01/25/24 10:17 Gram Stain - Final Sputum Sputum Culture - Final Klebsiella pneumoniae 01/25/24 15:30 Blood Culture - Preliminary Blood Assessment and Plan Assessment: Severe encephalopathy, could be multifactorial. Metabolic/toxic encephalopathy, however many metabolic abnormality corrected with no improvement Acute hypoxic hypercapnic respiratory failure, patient unable to protect airway secondary to above, s/p intubation and mechanical ventilation Suspected seizure-like activity on 01/24 x 2 Suspected sepsis. Secondary to pneumonia Hypernatremia. Resolved Non-STEMI with elevated troponin with some EKG changes but patient denies chest pain. Acute kidney injury, improving History of depression, psychosis and suicidal ideation Severe dehydration and hypovolemia History of chronic left leg wound, currently wound is closed, no evidence of cellulitis but mild deformity in the muscles of the left leg Elevated lactic acid Plan: Continue with ICU management Continue vent management as per pulmonary team Started on IV vancomycin and cefepime. ID team consult on the case. Follow-up culture results Neurology consult in the case. Follow-up culture results, follow-up lumbar puncture results Patient started on Keppra, repeat EEG Continue with IV hydration D5 normal saline at 75 Pulmonary and nephrology team consult Neurology and cardiology team consultation Labs and medication were reviewed.. Continue same treatment. Continue with symptomatic treatment. Resume home medication. Monitor labs and vitals. DVT and GI prophylaxis. Further recommendations as per clinical course of the patient DVT prophylaxis: heparin GI Prophylaxis: Pepcid Prognosis is guarded
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
[2024-01-27 17:50] LABS: Glucose,Whole Blood 144 mg/dL (70-110)
[2024-01-28 00:25] LABS: Glucose,Whole Blood 109 mg/dL (70-110)
[2024-01-28 06:17] LABS: ABG Base Excess 2.6 mmol/L; ABG HCO3 31 mmol/L (21-25); ABG Oxygen Saturation 96.2 % (94-97); ABG PCO2 61 mmHg (35-45); ABG PH 7.32 (7.35-7.45); ABG PO2 80 mmHg (83-108); ABG TCO2 33 mmol/L (19-24); Allen Test Performed? Yes
[2024-01-28 06:20] LABS: HCT 49.1 % (39.0-53.0); HGB 15.6 gm/dL (13.0-17.5); MCH 32.9 pg (25.0-35.0); MCHC 31.8 g/dL (31.0-37.0); MCV 103.4 fL (80.0-100.0); Macrocytosis Slight; Mean Platelet Volume 10.6; Platelet Count 157 k/uL (150-450); RBC 4.75 m/uL (4.30-5.90); RDW 12.9 % (11.5-15.5)
--- NOTE | 2024-01-28 06:41 | XR ---
EXAMINATION TYPE: XR chest 1V portable DATE OF EXAM: 01/28/2024 COMPARISON: 01/27/2024 HISTORY: Tube placement TECHNIQUE: Single frontal view of the chest is obtained. FINDINGS: ET tube is 7.7 cm above the elizabeth. There is an NG tube in the stomach. A left-sided PICC line termin ates in the SVC/RA junction The large opacity obscuring the left lower lobe likely a combination of pleural effusion and atelecta sis is unchanged. The right lung remains clear. IMPRESSION: 1. ET tube 7.7 cm above the elizabeth. 2. No change in the left lower lobe opacity. [facility], , 01/28/2024 6:39 AM
[2024-01-28 07:06] LABS: Glucose,Whole Blood 123 mg/dL (70-110)
--- NOTE | 2024-01-28 09:30 | P.PN ---
Subjective Progress Note Date: 01/27/24 Principal diagnosis: Reason for follow-up is sepsis possible aspiration pneumonia Patient is a 68-year-old male with a past medical history significant for COPD hypertension HI osteoarthritis patient did have a history of necrotizing infection of the left lower extremity with initial admission to hospital mental status changes subsequently have worsening of his respiratory status requiring intubation and concern for possible aspiration pneumonia. On today's evaluation that is 01/27/2024,the patient remains to be afebrile, patient is on ventilator FiO2 stable at 40% no significant purulent secretions of the ET diarrhea any change reported patient is hemodynamically stable not requiring any pressor support. The patient white count is down to 13.2 creatinine is 0.32 sputum is growing Klebsiella pneumoniae that is sensitive to cefepime the patient is on Objective - Vital Signs Vital signs: Vital Signs Temp 98.4 F 01/27/24 16:00 Pulse 74 01/27/24 19:00 Resp 14 01/27/24 19:00 BP 144/87 01/27/24 19:00 Pulse Ox 98 01/27/24 19:00 FiO2 40 01/27/24 20:18 Intake & Output 01/27/24 01/27/24 01/28/24 06:59 18:59 06:59 Intake Total 2516 1651 Output Total 1075 2340 Balance 1441 -689 Weight 78.6 kg Intake: IV 1211 1121 Cefepime 2 gm In Sodium 100 100 Chloride 0.9% 100 ml @ 25 mls/hr IVPB Q8HR [facility] Rx# :[id number] Dextrose 5%-0.9% NaCl 1, 825 975 000 ml @ 75 mls/hr IV . [id number] [facility] Rx#:[id number] Vancomycin 1,250 mg In 250 Sodium Chloride 0.9% 250 ml @ 83.333 mls/hr IVPB Q8H [facility] Rx#:[id number] a-line 36 46 Intake, IV Titration 675 Amount Dextrose 5%-0.9% NaCl 1, 675 000 ml @ 75 mls/hr IV . [id number] [facility] Rx#:[id number] Tube Feeding 290 440 Lipid 250 Vancomycin 1,250 mg In 250 Sodium Chloride 0.9% 250 ml @ 83.333 mls/hr IVPB Q8H [facility] Rx#:[id number] Other 90 90 Output: Urine 1075 2340 Other: Voiding Method Indwelling Catheter Indwelling Catheter ABP, PAP, CO, CI - Last Documented Arterial Blood Pressure 138/63 - Exam GENERAL DESCRIPTION: An elderly male intubated on the vent RESPIRATORY SYSTEM: Unlabored breathing , decreased breath sounds at bases HEART: S1 S2 regular rate and rhythm , ABDOMEN: Soft , no tenderness EXTREMITIES: No edema feet - Labs CBC & Chem 7: 01/28/24 05:10 01/27/24 18:41 Labs: Abnormal Lab Results - Last 24 Hours (Table) 01/27/24 01/27/24 01/27/24 Range/Units 00:43 05:14 05:15 WBC (3.8-10.6) k/uL MCV (80.0-100.0) fL ABG pO2 (83-108) mmHg ABG HCO3 (21-25) mmol/L ABG Total CO2 (19-24) mmol/L ABG O2 Saturation (94-97) % Potassium 3.2 L (3.5-5.1) mmol/L Chloride 111 H (98-107) mmol/L Creatinine 0.32 L (0.66-1.25) mg/dL Glucose 141 H (74-99) mg/dL POC Glucose (mg/dL) 118 H 135 H (70-110) mg/dL Calcium 7.2 L (8.4-10.2) mg/dL 01/27/24 01/27/24 01/27/24 Range/Units 05:15 06:13 11:49 WBC 13.2 H (3.8-10.6) k/uL MCV 101.7 H (80.0-100.0) fL ABG pO2 112 H (83-108) mmHg ABG HCO3 26 H (21-25) mmol/L ABG Total CO2 27 H (19-24) mmol/L ABG O2 Saturation 98.8 H (94-97) % Potassium (3.5-5.1) mmol/L Chloride (98-107) mmol/L Creatinine (0.66-1.25) mg/dL Glucose (74-99) mg/dL POC Glucose (mg/dL) 124 H (70-110) mg/dL Calcium (8.4-10.2) mg/dL 01/27/24 01/27/24 Range/Units 12:00 17:48 WBC (3.8-10.6) k/uL MCV (80.0-100.0) fL ABG pO2 (83-108) mmHg ABG HCO3 (21-25) mmol/L ABG Total CO2 (19-24) mmol/L ABG O2 Saturation (94-97) % Potassium 3.4 L (3.5-5.1) mmol/L Chloride (98-107) mmol/L Creatinine (0.66-1.25) mg/dL Glucose (74-99) mg/dL POC Glucose (mg/dL) 144 H (70-110) mg/dL Calcium (8.4-10.2) mg/dL Microbiology - Last 24 Hours (Table) 01/25/24 17:20 Nasal Screen MRSA/MSSA - Final Nasal Swab Methicillin resist S. aureus 01/25/24 10:17 Gram Stain - Final Sputum Sputum Culture - Final Klebsiella pneumoniae 01/25/24 15:30 Blood Culture - Preliminary Blood Assessment and Plan (1) Sepsis Current Visit: Yes Status: Acute Code(s): A41.9 - SEPSIS, UNSPECIFIED ORGANISM SNOMED Code(s): 12744783 (2) Aspiration pneumonia Current Visit: Yes Status: Acute Code(s): J69.0 - PNEUMONITIS DUE TO INHALATION OF FOOD AND VOMIT SNOMED Code(s): 225935712 Plan: 1patient with an episode of sepsis in this patient who did have significant evaded white count patient also have mild hypotension and source is likely aspiration pneumonitis and the patient noted to have significant vomiting at the time of intubation with evidence of left basilar infiltrate on the chest x-ray will need to cover for resistant gram-positive as well as gram-negative pathogen 2-penicillin allergy limit number of antibiotics safe to use 3-blood cultures currently pending and sputum cultures are currently growing Klebsiella 4patient to continue with cefepime and vancomycin pharmacy to dose however if no MRSA will discontinue vancomycin Dictation was produced using [employer] dictation software. please excuse any grammatical, word or spelling errors. Time with Patient: Less than 30
[2024-01-28 10:06] LABS: African American GFR (CKD) >90 (>60 ml/min/1.73 sqM); Anion Gap 3 mmol/L; Blood Urea Nitrogen 13 mg/dL (9-20); Calcium 7.8 mg/dL (8.4-10.2); Carbon Dioxide 30 mmol/L (22-30); Chloride 111 mmol/L (98-107); Glucose 128 mg/dL (74-99); Non-African American GFR(CKD) >90 (>60 ml/min/1.73 sqM); Potassium 3.7 mmol/L (3.5-5.1); Sodium 144 mmol/L (137-145)
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
[2024-01-28 12:47] LABS: Glucose,Whole Blood 105 mg/dL (70-110)
[2024-01-28] MEDS: POTASSIUM BICARBONATE/CIT AC 20 MEQ TABLET.EFF NG-TUBE SCH (14:37)
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
--- NOTE | 2024-01-28 16:52 | P.PN ---
Subjective This is a pleasant 68 years old male with past medical history of psychosis and multiple admission for suicidal ideation, hypertension, osteoarthritis Patient brought to the emergency room because he was found by his roommate on the floor, hard to wake up. When he came to emergency room he was answering questions but looks like he is continued to be confused Patient currently opens eyes and follows simple commands but not all every command. Also he answers some questions. However he looks confused significantly. He is disoriented to time place and person. He has no insight. But he denies any pain. No headache. No dizziness. Moves arms and legs. No tingling. Patient on admission was tachycardic and tachypneic but afebrile He had mild leukocytosis, high hemoglobin at 25 and sodium 156 and creatinine 1.7. Liver enzymes moderately elevated Lactic acid 4.0 Troponin is elevated 0.09 Urine drug screen is negative Serum alcohol less than 10. CT of the head and neck is negative for acute process for either side Chest x-ray is negative for acute process and I reviewed the chest x-rays and agree EKG showing sinus tachycardia at [address] depression 01/21 Patient remains confused, he open eyes to verbal stimuli, he can tell me his name and then he goes back to sleep No abnormal movement Patient sodium 1 significantly elevated at 155, he was given D5W at 75 mL/h, repeat sodium this morning is still pending Patient looks dehydrated. Bible Teacher evaluated the patient for higher troponin which is thought secon torsten to dehydration however he has some ST depression in the lateral leads, coroner transport technician recommended heparin drip x 48 hours as well as metoprolol and Lipitor which are ordered. Yesterday I discussed the case with the neurologist on-call, he recommended to hold on consult since the patient has severe metabolic abnormality. This morning patient remains confused with no significant improvement therefore we are going to reconsult neurology service. He has elevated hemoglobin and hematocrit, most likely secondary to dehydration, keep following levels till sodium level corrected and then reassess. Abdomen looks soft, patient denies abdominal pain or chest pain. 01/22 Patient was moved to the ICU yesterday because of concerns about inability to protect airway He was able to breathe okay this morning. He remains severely confused He remains on D5W at 150 mL/h, sodium down to 152 today Creatinine back to reference range Repeat CT of the brain is negative Heparin drip was discontinued and patient placed on subcutaneous heparin 01/23 Patient is becoming more encephalopathic, he is nonverbal, does not follow command does not answer questions. This is despite correction of his hyponatremia and other metabolic abnormalities like acute kidney injury. And there is concerned about ability to protect airway so far he does not need intervention but close monitoring in the ICU Today patient underwent lumbar puncture and results Showing RBC is elevated at 28, nucleated cells are 0. Glucose slightly elevated 72 and protein 106. Cultures pending Also patient has low-grade fever and is Amandeep concentrated sample of CBC improved except for WBC remains elevated about 15.1 K, neurology service recommended to consider ID team, Patient is also history of suicidal ideation however his urine drug screen on admission showed only marijuana Prognosis remains guarded 01/24 Patient early education teacher desaturated down to 70s associated with brief period of rigidness and shakiness and his eyes were wide open, this episode happened twice and lasted for short time seconds to minutes. He had EEG initially done which was unremarkable another EEG is requested today, patient was started on IV Keppra 1000 mg Also ABG shows evidence of acute hypoxic hypercapnic respiratory failure, patient was unable to protect his airway and he got intubated today. In the meantime there is no abnormal movement currently. He is afebrile this morning. Last fever was on 01/22 and it was 100 degrees which is low-grade. Labs showing leukocytosis worse 21.7, hemoglobin 18, platelet count is 188. pH 7.1, pCO2 is high at 95. Oxygen with pO2 of 86 while on 15 L. Sodium 137, potassium 3.3. Liver enzymes not significantly elevated. CSF culture permanent results are still pending 01/25 Patient yesterday could not protect his airway and he was intubated and placed on mechanical ventilation. Pulmonary/critical care team following closely and help with vent management. No seizure-like activity or abnormal movements noted. EEG done and reviewed. Neurologist on the case. Patient is currently on IV Keppra 1000 twice daily Also patient started on IV vancomycin and cefepime per ID team recommendation for suspected sepsis. Cultures are pending. Patient has no fever for the last 3 days. Leukocyte count today still mildly elevated at 16 but coming down from 21 yesterday. Electrolytes are improving. Patient remains in critical condition. 01/26 Patient remains in the ICU intubated and on mechanical ventilation He is currently covered with IV vancomycin and cefepime, for suspected pneumonia. Nasal culture growing MRSA and sputum culture growing Klebsiella pneumonia 01/27 Patient remains intubated and on mechanical ventilation without sedation. No abnormal movements noted He is afebrile and blood pressure holding well. WBCs 11. He still somewhat acidotic with pH 7.3 and pCO2 high 61. BMP and liver enzymes were unremarkable. Nasal screen is positive for MRSA sputum Culture is positive for Klebsiella CSF culture from pulmonary suction presumptive MRSA. However suspicion of DANCE ENTERTAINER infection is very low as CSF sample showing no leukocytes, 0 WBC. Also sugar is high rather than low which goes against infection. And also his neck was supple on examined him on admission. I discussed with the staff the CSF sample waited more than 5 hours before it goes to the lab And chest x-ray showing significant pneumonia in the left lower lobe Currently he is on cefepime also on IV Keppra Objective - Vital Signs Vital signs: Vital Signs Temp 97.5 F L 01/28/24 16:00 Pulse 76 01/28/24 16:00 Resp 15 01/28/24 16:00 BP 140/81 01/28/24 16:00 Pulse Ox 98 01/28/24 16:00 FiO2 40 01/28/24 15:36 Intake & Output 01/27/24 01/28/24 01/28/24 18:59 06:59 18:59 Intake Total 1651 1651 1545 Output Total 2340 425 530 Balance -689 1226 1015 Weight 81 kg Intake: IV 4772 743 9008 Cefepime 2 gm In Sodium 100 100 100 Chloride 0.9% 100 ml @ 25 mls/hr IVPB Q8HR [facility] Rx# :[id number] Dextrose 5%-0.9% NaCl 1, 975 825 750 000 ml @ 75 mls/hr IV . [id number] [facility] Rx#:[id number] Vancomycin 1,250 mg In 250 Sodium Chloride 0.9% 250 ml @ 83.333 mls/hr IVPB Q8H [facility] Rx#:[id number] a-line 46 68 30 Intake, IV Titration 100 Amount Cefepime 2 gm In Sodium 100 Chloride 0.9% 100 ml @ 25 mls/hr IVPB Q8HR [facility] Rx# :[id number] Tube Feeding 440 628 315 Other 90 30 Output: Urine 2340 425 530 Other: Voiding Method Indwelling Catheter Indwelling Catheter Indwelling Catheter ABP, PAP, CO, CI - Last Documented Arterial Blood Pressure 114/52 - Exam --GENERAL: The patient is intubated and placed on mechanical ventilation HEENT: Pupils are round and equally reacting to light. EOMI. No scleral icterus. No conjunctival pallor. Normocephalic, atraumatic. No pharyngeal erythema. No thyromegaly. CARDIOVASCULAR: S1 and S2 present. No murmurs, rubs, or gallops. PULMONARY: Chest is clear to auscultation, no wheezing , no crackles. ABDOMEN: Soft, nontender, nondistended, normoactive bowel sounds. No palpable organomegaly. MUSCULOSKELETAL: No joint swelling or deformity. EXTREMITIES: No cyanosis, clubbing, or pedal edema. NEUROLOGICAL: Gross neurological examination did not reveal any focal deficits. SKIN: No rashes. no petechiae. - Labs CBC & Chem 7: 01/28/24 05:10 01/28/24 05:10 Labs: Abnormal Lab Results - Last 24 Hours (Table) 01/27/24 01/28/24 01/28/24 Range/Units 17:48 05:10 05:10 WBC 11.0 H (3.8-10.6) k/uL MCV 103.4 H (80.0-100.0) fL ABG pH (7.35-7.45) ABG pCO2 (35-45) mmHg ABG pO2 (83-108) mmHg ABG HCO3 (21-25) mmol/L ABG Total CO2 (19-24) mmol/L Chloride 111 H (98-107) mmol/L Creatinine 0.39 L (0.66-1.25) mg/dL Glucose 128 H (74-99) mg/dL POC Glucose (mg/dL) 144 H (70-110) mg/dL Calcium 7.8 L (8.4-10.2) mg/dL 01/28/24 01/28/24 Range/Units 06:17 07:04 WBC (3.8-10.6) k/uL MCV (80.0-100.0) fL ABG pH 7.32 L (7.35-7.45) ABG pCO2 61 H (35-45) mmHg ABG pO2 80 L (83-108) mmHg ABG HCO3 31 H (21-25) mmol/L ABG Total CO2 33 H (19-24) mmol/L Chloride (98-107) mmol/L Creatinine (0.66-1.25) mg/dL Glucose (74-99) mg/dL POC Glucose (mg/dL) 123 H (70-110) mg/dL Calcium (8.4-10.2) mg/dL Microbiology - Last 24 Hours (Table) 01/24/24 10:36 CSF Gram Stain - Preliminary Cerebral Spinal Fluid CSF Culture - Preliminary Presumptive MRSA 01/25/24 15:30 Blood Culture - Preliminary Blood Assessment and Plan Assessment: Severe encephalopathy, could be multifactorial. Metabolic/toxic encephalopathy, Also most likely related to infection with pneumonia Acute hypoxic hypercapnic respiratory failure, patient unable to protect airway secondary to above, s/p intubation and mechanical ventilation Suspected seizure-like activity on 01/24 x 2 Suspected sepsis. Secondary to pneumonia Hypernatremia. Resolved Non-STEMI with elevated troponin with some EKG changes but patient denies chest pain. Acute kidney injury, improving History of depression, psychosis and suicidal ideation Severe dehydration and hypovolemia History of chronic left leg wound, currently wound is closed, no evidence of cellulitis but mild deformity in the muscles of the left leg Elevated lactic acid Plan: Continue with ICU management Continue vent management as per pulmonary team Started on cefepime. ID team consult on the case. Follow-up culture results Neurology consult in the case. Follow-up culture result showing s presumptive MRSA, most likely colonization Patient started on Keppra, repeat EEG Continue with IV hydration D5 normal saline at 75 Pulmonary and nephrology team consult Neurology and cardiology team consultation Labs and medication were reviewed.. Continue same treatment. Continue with symptomatic treatment. Resume home medication. Monitor labs and vitals. DVT and GI prophylaxis. Further recommendations as per clinical course of the patient DVT prophylaxis: heparin GI Prophylaxis: Pepcid Prognosis is guarded
[2024-01-28 17:46] LABS: Glucose,Whole Blood 108 mg/dL (70-110)
--- NOTE | 2024-01-28 21:08 | P.PN ---
Subjective Progress Note Date: 01/28/24 Principal diagnosis: Reason for follow-up is sepsis possible aspiration pneumonia Patient is a 68-year-old male with a past medical history significant for COPD hypertension [place] osteoarthritis patient did have a history of necrotizing infection of the left lower extremity with initial admission to hospital mental status changes subsequently have worsening of his respiratory status requiring intubation and concern for possible aspiration pneumonia. On today's evaluation that is 01/28/2024, the patient continues to be afebrile, the patient is on ventilator and FiO2 is stable at 40% no significant purulent secretion through the ET patient did not have any diarrhea and not requiring any pressor support. Patient white count is 11,000, creatinine 0.39 CSF culture with presumptive MRSA however CSF white count was 0 and glucose was 72 Objective - Vital Signs Vital signs: Vital Signs Temp 96.1 F L 01/28/24 08:00 Pulse 65 01/28/24 11:00 Resp 14 01/28/24 11:00 BP 111/70 01/28/24 11:00 Pulse Ox 97 01/28/24 11:00 FiO2 40 01/28/24 11:47 Intake & Output 01/27/24 01/28/24 01/28/24 18:59 06:59 18:59 Intake Total 1651 1651 1055 Output Total 2340 425 275 Balance -689 1226 780 Weight 81 kg Intake: IV 1121 993 740 Cefepime 2 gm In Sodium 100 100 100 Chloride 0.9% 100 ml @ 25 mls/hr IVPB Q8HR [facility] Rx# :[id number] Dextrose 5%-0.9% NaCl 1, 975 825 375 000 ml @ 75 mls/hr IV . [id number] [facility] Rx#:[id number] Vancomycin 1,250 mg In 250 Sodium Chloride 0.9% 250 ml @ 83.333 mls/hr IVPB Q8H [facility]I Rx#:[id number] a-line 46 68 15 Tube Feeding 440 628 315 Other 90 30 Output: Urine 2340 425 275 Other: Voiding Method Indwelling Catheter Indwelling Catheter Indwelling Catheter ABP, PAP, CO, CI - Last Documented Arterial Blood Pressure 121/52 - Exam GENERAL DESCRIPTION: An elderly male intubated on the vent RESPIRATORY SYSTEM: Unlabored breathing , decreased breath sounds at bases HEART: S1 S2 regular rate and rhythm , ABDOMEN: Soft , no tenderness EXTREMITIES: No edema feet - Labs CBC & Chem 7: 01/28/24 05:10 01/28/24 05:10 Labs: Abnormal Lab Results - Last 24 Hours (Table) 01/27/24 01/28/24 01/28/24 Range/Units 17:48 05:10 05:10 WBC 11.0 H (3.8-10.6) k/uL MCV 103.4 H (80.0-100.0) fL ABG pH (7.35-7.45) ABG pCO2 (35-45) mmHg ABG pO2 (83-108) mmHg ABG HCO3 (21-25) mmol/L ABG Total CO2 (19-24) mmol/L Chloride 111 H (98-107) mmol/L Creatinine 0.39 L (0.66-1.25) mg/dL Glucose 128 H (74-99) mg/dL POC Glucose (mg/dL) 144 H (70-110) mg/dL Calcium 7.8 L (8.4-10.2) mg/dL 01/28/24 01/28/24 Range/Units 06:17 07:04 WBC (3.8-10.6) k/uL MCV (80.0-100.0) fL ABG pH 7.32 L (7.35-7.45) ABG pCO2 61 H (35-45) mmHg ABG pO2 80 L (83-108) mmHg ABG HCO3 31 H (21-25) mmol/L ABG Total CO2 33 H (19-24) mmol/L Chloride (98-107) mmol/L Creatinine (0.66-1.25) mg/dL Glucose (74-99) mg/dL POC Glucose (mg/dL) 123 H (70-110) mg/dL Calcium (8.4-10.2) mg/dL Microbiology - Last 24 Hours (Table) 01/24/24 10:36 CSF Gram Stain - Preliminary Cerebral Spinal Fluid CSF Culture - Preliminary Presumptive MRSA 01/25/24 15:30 Blood Culture - Preliminary Blood 01/25/24 17:20 Nasal Screen MRSA/MSSA - Final Nasal Swab Methicillin resist S. aureus 01/25/24 10:17 Gram Stain - Final Sputum Sputum Culture - Final Klebsiella pneumoniae Assessment and Plan (1) Sepsis Current Visit: Yes Status: Acute Code(s): A41.9 - SEPSIS, UNSPECIFIED ORGANISM SNOMED Code(s): 19318451 (2) Aspiration pneumonia Current Visit: Yes Status: Acute Code(s): J69.0 - PNEUMONITIS DUE TO INHALATION OF FOOD AND VOMIT SNOMED Code(s): 289948873 Plan: 1patient with an episode of sepsis in this patient who did have significant evaded white count patient also have mild hypotension and source is likely aspiration pneumonitis and the patient noted to have significant vomiting at the time of intubation with evidence of left basilar infiltrate on the chest x-ray will need to cover for resistant gram-positive as well as gram-negative pathogen 2-penicillin allergy limit number of antibiotics safe to use 3-blood cultures so far negative and sputum cultures are currently growing Klebsiella, patient CSF culture growing presumptive MRSA however CSF white count was 0 and glucose was normal at 72 more likely representing contamination rather than true infection 4patient to continue with cefepime and will monitor clinical course closely Dictation was produced using [employer] [facility] dictation software. please excuse any grammatical, word or spelling errors. Time with Patient: Less than 30
--- NOTE | 2024-01-28 22:18 | P.PN ---
Subjective patient is seen for follow-up for hypernatremia and acute kidney injury. Renal function has improved and creatinine is at 0.3. Serum sodium had been stable and staying at 137-139. Today it is at 144. Patient is maintained on D5.9 at 75 cc an hour. patient remains on the vent. Objective - Vital Signs Vital signs: Vital Signs Temp 98.6 F 01/28/24 20:00 Pulse 81 01/28/24 20:00 Resp 15 01/28/24 20:00 BP 129/77 01/28/24 20:00 Pulse Ox 97 01/28/24 20:00 FiO2 40 01/28/24 20:21 Intake & Output 01/28/24 01/28/24 01/29/24 06:59 18:59 06:59 Intake Total 1651 2142 453 Output Total 425 620 210 Balance 1226 1522 243 Weight 81 kg Intake: IV 993 1286 234 Cefepime 2 gm In Sodium 100 100 Chloride 0.9% 100 ml @ 25 mls/hr IVPB Q8HR [facility] Rx# :[id number] Dextrose 5%-0.9% NaCl 1, 825 900 225 000 ml @ 75 mls/hr IV . [id number] [facility] Rx#:[id number] Vancomycin 1,250 mg In 250 Sodium Chloride 0.9% 250 ml @ 83.333 mls/hr IVPB Q8H [facility] Rx#:[id number] a-line 68 36 9 Intake, IV Titration 100 Amount Cefepime 2 gm In Sodium 100 Chloride 0.9% 100 ml @ 25 mls/hr IVPB Q8HR [facility] Rx# :[id number] Tube Feeding 628 756 189 Other 30 30 Output: Urine 425 620 210 Other: Voiding Method Indwelling Catheter Indwelling Catheter # Bowel Movements 0 ABP, PAP, CO, CI - Last Documented Arterial Blood Pressure 120/57 - Exam patient is sedated and on the vent. Examination of the heart S1 and S2 Examination of the lungs bilateral breath sounds are heard Abdomen is soft Examination of lower extremity shows no edema - Labs CBC & Chem 7: 01/28/24 05:10 01/28/24 05:10 Labs: Abnormal Lab Results - Last 24 Hours (Table) 01/28/24 01/28/24 01/28/24 Range/Units 05:10 05:10 06:17 WBC 11.0 H (3.8-10.6) k/uL MCV 103.4 H (80.0-100.0) fL ABG pH 7.32 L (7.35-7.45) ABG pCO2 61 H (35-45) mmHg ABG pO2 80 L (83-108) mmHg ABG HCO3 31 H (21-25) mmol/L ABG Total CO2 33 H (19-24) mmol/L Chloride 111 H (98-107) mmol/L Creatinine 0.39 L (0.66-1.25) mg/dL Glucose 128 H (74-99) mg/dL POC Glucose (mg/dL) (70-110) mg/dL Calcium 7.8 L (8.4-10.2) mg/dL 01/28/24 Range/Units 07:04 WBC (3.8-10.6) k/uL MCV (80.0-100.0) fL ABG pH (7.35-7.45) ABG pCO2 (35-45) mmHg ABG pO2 (83-108) mmHg ABG HCO3 (21-25) mmol/L ABG Total CO2 (19-24) mmol/L Chloride (98-107) mmol/L Creatinine (0.66-1.25) mg/dL Glucose (74-99) mg/dL POC Glucose (mg/dL) 123 H (70-110) mg/dL Calcium (8.4-10.2) mg/dL Microbiology - Last 24 Hours (Table) 01/25/24 15:30 Blood Culture - Preliminary Blood 01/24/24 10:36 CSF Gram Stain - Preliminary Cerebral Spinal Fluid CSF Culture - Preliminary Presumptive MRSA Assessment and Plan Assessment: 1. Hypernatremia with significant free water deficit, status post D5W and improved. Currently maintained on D5.9 at 75 cc an hour 2. Mental status changes , etiology unclear. Patient is being followed by neurology. LP was unremarkable 3. Volume depletion 4. Acute kidney injury secondary to volume depletion, now improved. 5. History of EtOH abuse 6. History of closed head injury 7. Hypokalemia status post replacement Plan: Change IV fluids to D5.45 Repeat labs in a.m.
[2024-01-28] MEDS: DEXTROSE 5%-0.45% NACL 1,000 ML IV SCH (23:38)
[2024-01-28 23:42] LABS: Glucose,Whole Blood 107 mg/dL (70-110)
[2024-01-29 05:36] LABS: HCT 43.7 % (39.0-53.0); HGB 14.2 gm/dL (13.0-17.5); MCH 33.5 pg (25.0-35.0); MCHC 32.6 g/dL (31.0-37.0); MCV 102.7 fL (80.0-100.0); Macrocytosis Slight; Mean Platelet Volume 10.2; Platelet Count 142 k/uL (150-450); RBC 4.26 m/uL (4.30-5.90); RDW 13.1 % (11.5-15.5); WBC 13.2 k/uL (3.8-10.6)
[2024-01-29 05:41] LABS: ABG Base Excess 5.8 mmol/L; ABG HCO3 32 mmol/L (21-25); ABG Oxygen Saturation 98.9 % (94-97); ABG PCO2 48 mmHg (35-45); ABG PH 7.42 (7.35-7.45); ABG PO2 110 mmHg (83-108); ABG TCO2 33 mmol/L (19-24); Allen Test Performed? Yes
[2024-01-29 05:47] LABS: African American GFR (CKD) >90 (>60 ml/min/1.73 sqM); Anion Gap -1 mmol/L; Blood Urea Nitrogen 16 mg/dL (9-20); Calcium 8.2 mg/dL (8.4-10.2); Carbon Dioxide 32 mmol/L (22-30); Chloride 115 mmol/L (98-107); Glucose 140 mg/dL (74-99); Non-African American GFR(CKD) >90 (>60 ml/min/1.73 sqM); Potassium 3.5 mmol/L (3.5-5.1); Sodium 146 mmol/L (137-145)
[2024-01-29 06:09] LABS: Glucose,Whole Blood 111 mg/dL (70-110)
[2024-01-29] MEDS: POTASSIUM BICARBONATE/CIT AC 20 MEQ TABLET.EFF NG-TUBE SCH (07:00)
[2024-01-29 08:23] LABS: HCT 40.1 % (39.0-53.0); HGB 13.2 gm/dL (13.0-17.5); MCH 33.8 pg (25.0-35.0); MCHC 32.9 g/dL (31.0-37.0); MCV 102.9 fL (80.0-100.0); Macrocytosis Slight; Mean Platelet Volume 9.7; Platelet Count 149 k/uL (150-450); RBC 3.89 m/uL (4.30-5.90); RDW 13.1 % (11.5-15.5); WBC 13.8 k/uL (3.8-10.6)
--- NOTE | 2024-01-29 08:33 | XR ---
EXAMINATION TYPE: XR chest 1V portable DATE OF EXAM: 01/29/2024 5:39 AM CLINICAL INDICATION: Male, 68 years old with history of intubated; COMPARISON: Chest radiographs from 01/28/2024 TECHNIQUE: XR chest 1V portable Frontal view of the chest. FINDINGS: Lungs/Pleura: There is no evidence of pleural effusion, focal consolidation, or pneumothorax. Pulmonary vascularity: Unremarkable. Heart/mediastinum: Cardiomediastinal silhouette is unremarkable. Musculoskeletal: No acute osseous pathology. Other findings: None Lines/Tubes: Endotracheal tube with distal tip 3.9 cm above the elizabeth. Left-sided PICC with distal tip at the superior vena cava/brachiocephalic confluence. IMPRESSION: No acute cardiopulmonary disease/process. [facility], , 01/29/2024 8:30 AM
[2024-01-29] MEDS: PANTOPRAZOLE 40 MG/10 ML VIAL IV SCH (09:15)
[2024-01-29] MEDS: SODIUM CHLORIDE 0.9% 1,000 ML IV SCH (09:33)
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
[2024-01-29 11:01] LABS: Partial Thromboplastin Time 24.2 sec (22.0-30.0); Prothrombin Time 11.1 sec (10.0-12.5)
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
[2024-01-29 11:46] LABS: Glucose,Whole Blood 124 mg/dL (70-110)
[2024-01-29] MEDS: NOREPINEPHRINE 4 MG in SODIUM CHLORIDE 0.9% 250 ML IV SCH (12:26)
[2024-01-29 14:36] LABS: HCT 33.1 % (39.0-53.0); MCH 34.3 pg (25.0-35.0); MCHC 33.2 g/dL (31.0-37.0); MCV 103.2 fL (80.0-100.0); Macrocytosis Slight; Platelet Count 152 k/uL (150-450); RBC 3.21 m/uL (4.30-5.90); RDW 13.3 % (11.5-15.5); WBC 14.2 k/uL (3.8-10.6)
[2024-01-29 14:49] LABS: ALT 21 U/L (4-49); African American GFR (CKD) >90 (>60 ml/min/1.73 sqM); Albumin 1.9 g/dL (3.5-5.0); Anion Gap -2 mmol/L; Blood Urea Nitrogen 18 mg/dL (9-20); Calcium 7.6 mg/dL (8.4-10.2); Carbon Dioxide 28 mmol/L (22-30); Chloride 119 mmol/L (98-107); Glucose 121 mg/dL (74-99); Non-African American GFR(CKD) >90 (>60 ml/min/1.73 sqM); Sodium 145 mmol/L (137-145); Total Bilirubin 0.7 mg/dL (0.2-1.3); Total Protein 4.1 g/dL (6.3-8.2)
[2024-01-29 15:06] LABS: AST 35 U/L (17-59); Alkaline Phosphatase 101 U/L (38-126)
--- NOTE | 2024-01-29 17:44 | CT ---
EXAMINATION TYPE: CT brain wo con DATE OF EXAM: 01/29/2024 COMPARISON: 01/23/2024 HISTORY: 68-year-old male confusion, AMS. prior on pacs TECHNIQUE: Examination was done in axial plane without intravenous contrast. Coronal and sagittal r econstructions performed. CT DLP: 1154.4 mGycm Automated exposure control for dose reduction was used. FINDINGS: There is no evidence of acute intracranial hemorrhage, acute ischemic changes, mass, mass-effect, or extra-axial fluid collection. There is no effacement of cerebral sulci or basal subarachnoid cister ns. There is no hydrocephalus. There is no midline shift. Carrasquillo-white matter distinction is preserv ed. Mild patchy hypodensities in both cerebral hemispheres. Density along the left transverse sinus is unchanged from 01/22/2024 suggesting some possible dystrop hic calcification. Possible subacute to chronic bilateral nasal bone fractures. Appearance is unchanged from 01/23/2024. Moderate to severe mucosal thickening throughout the paranasal sinuses. Orbits and globes appear inta ct. Mastoid air cells are well pneumatized. IMPRESSION: 1. No acute intracranial abnormality seen. Mild burden of chronic small vessel ischemic disease. 2. 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 3. Subacute to chronic nondisplaced nasal bone fractures, appearance is similar compared to 4. [facility], , 01/29/2024 5:42 PM
[2024-01-29 18:01] LABS: Glucose,Whole Blood 118 mg/dL (70-110)
[2024-01-29 18:49] LABS: HCT 28.3 % (39.0-53.0); HGB 9.6 gm/dL (13.0-17.5); MCH 34.4 pg (25.0-35.0); MCV 101.3 fL (80.0-100.0); Macrocytosis Slight; Mean Platelet Volume 10.6; Platelet Count 130 k/uL (150-450); RDW 13.8 % (11.5-15.5); WBC 14.5 k/uL (3.8-10.6)
[2024-01-29] MEDS: LACTATED RINGERS 1,000 ML IV SCH (19:38)
--- NOTE | 2024-01-29 19:43 | CT ---
EXAMINATION TYPE: CT angio abdomen pelvis, without and with contrast DATE OF EXAM: 01/29/2024 COMPARISON: 09/21/2020 HISTORY: 68-year-old male Active lower GI bleed TECHNIQUE: Contiguous axial scanning of the abdomen and pelvis before and after administration of 100 ml Isovue 370 IV contrast. Additional delayed scan was performed. Coronal/sagittal MIP reconstructi ons performed. CT DLP: 2910.5 mGycm Automated exposure control for dose reduction was used. FINDINGS: Generalized anasarca changes. Heart upper limits of normal in size. Small to moderate-sized anterior basilar pericardial effusion measuring 1.7 cm thick. Small bilateral pleural effusions. Prominent volume loss and additional patchy airspace opacity throu ghout the left base and dependent atelectasis right base. Possible subtle 1.4 cm hypodensity mid liver on the delayed scan. No other focal liver lesion. Portal venous system is patent. No biliary ductal dilatation. Gallbladder, adrenal glands, kidneys, spleen, and pancreas within normal limits. An NG tube is present. There is mild diffuse gastric fold thickening. No dilated small bowel or free air. Scattered liquid stool throughout the colon. Left-sided colonic diverticulosis especially along the s igmoid colon. Redundant sigmoid colon. Moderate stool within the rectum with distention up to 7.0 cm wide. Presacral edema noted. Normal appendix noted. Scattered mild abdominopelvic ascites fluid. Moderate atherosclerotic calcifications throughout the abdominal aorta and iliac arteries. There appe ars to be segmental severe stenosis proximal right external iliac artery and moderate focal stenosis proximal SMA. Dixon catheter is in place decompressing the bladder. Intraluminal bladder air likely relating to ins trumentation. No pelvic lymphadenopathy seen. Bones: Mild degenerative change of the hips. Bilateral pubic rami healed fracture deformities. Modera te degenerative disc disease T10-T11, L1-L2, L3-L4. Facet arthropathy lumbar spine. Posterior disc os teophyte complex T8-T9 may cause a focal moderate spinal canal stenosis. IMPRESSION: 1. LEFT-SIDED COLONIC DIVERTICULOSIS ESPECIALLY ALONG THE SIGMOID COLON. NO FINDINGS OF ACUTE DIVERTI CULITIS. 2. Liquid stool throughout the colon suggests diarrheal state. 3. However, there is moderate solid stool distending the rectum up to 7.0 cm wide with some presacral edema. Correlate for possible fecal impaction. 4. Small bilateral pleural effusions with adjacent atelectasis. Additional patchy airspace disease at the left base. Correlate for any symptoms of infectious or aspiration pneumonitis or developing pulm onary edema. 5. Mild diffuse gastric fold thickening may be due to incomplete distention or gastritis. 6. Possible subtle 1.4 cm hypodense lesion mid liver on delayed scan. Recommend 2-3 month follow-up c ontrast enhanced CT or MRI to reassess. [facility], , 01/29/2024 7:40 PM
--- NOTE | 2024-01-29 22:17 | P.PN ---
Subjective Progress Note Date: 01/29/24 This is a pleasant 68 years old male with past medical history of psychosis and multiple admission for suicidal ideation, hypertension, osteoarthritis Patient brought to the emergency room because he was found by his roommate on the floor, hard to wake up. When he came to emergency room he was answering questions but looks like he is continued to be confused Patient currently opens eyes and follows simple commands but not all every command. Also he answers some questions. However he looks confused significantly. He is disoriented to time place and person. He has no insight. But he denies any pain. No headache. No dizziness. Moves arms and legs. No tingling. Patient on admission was tachycardic and tachypneic but afebrile He had mild leukocytosis, high hemoglobin at 25 and sodium 156 and creatinine 1.7. Liver enzymes moderately elevated Lactic acid 4.0 Troponin is elevated 0.09 Urine drug screen is negative Serum alcohol less than 10. CT of the head and neck is negative for acute process for either side Chest x-ray is negative for acute process and I reviewed the chest x-rays and agree EKG showing sinus tachycardia at [address] depression 01/21 Patient remains confused, he open eyes to verbal stimuli, he can tell me his name and then he goes back to sleep No abnormal movement Patient sodium 1 significantly elevated at 155, he was given D5W at 75 mL/h, repeat sodium this morning is still pending Patient looks dehydrated. Nursing Home Administrator evaluated the patient for higher troponin which is thought secondary to dehydration however he has some ST depression in the lateral leads, senior etl developer recommended heparin drip x 48 hours as well as metoprolol and Lipitor which are ordered. Yesterday I discussed the case with the neurologist on-call, he recommended to h old on consult since the patient has severe metabolic abnormality. This morning patient remains confused with no significant improvement therefore we are going to reconsult neurology service. He has elevated hemoglobin and hematocrit, most likely secondary to dehydration, keep following levels till sodium level corrected and then reassess. Abdomen looks soft, patient denies abdominal pain or chest pain. 01/22 Patient was moved to the ICU yesterday because of concerns about inability to protect airway He was able to breathe okay this morning. He remains severely confused He remains on D5W at 150 mL/h, sodium down to 152 today Creatinine back to reference range Repeat CT of the brain is negative Heparin drip was discontinued and patient placed on subcutaneous heparin 01/23 Patient is becoming more encephalopathic, he is nonverbal, does not follow command does not answer questions. This is despite correction of his hyponatremia and other metabolic abnormalities like acute kidney injury. And there is concerned about ability to protect airway so far he does not need intervention but close monitoring in the ICU Today patient underwent lumbar puncture and results Showing RBC is elevated at 28, nucleated cells are 0. Glucose slightly elevated 72 and protein 106. Cultures pending Also patient has low-grade fever and is Amandeep concentrated sample of CBC improved except for WBC remains elevated about 15.1 K, neurology service recommended to consider ID team, Patient is also history of suicidal ideation however his urine drug screen on admission showed only marijuana Prognosis remains guarded 01/24 Patient security rep desaturated down to 70s associated with brief period of rigidness and shakiness and his eyes were wide open, this episode happened twice and lasted for short time seconds to minutes. He had EEG initially done which was unremarkable another EEG is requested today, patient was started on IV Keppra 1000 mg Also ABG shows evidence of acute hypoxic hypercapnic respiratory failure, patient was unable to protect his airway and he got intubated today. In the meantime there is no abnormal movement currently. He is afebrile this morning. Last fever was on 01/22 and it was 100 degrees which is low-grade. Labs showing leukocytosis worse 21.7, hemoglobin 18, platelet count is 188. pH 7.1, pCO2 is high at 95. Oxygen with pO2 of 86 while on 15 L. Sodium 137, potassium 3.3. Liver enzymes not significantly elevated. CSF culture permanent results are still pending 01/25 Patient yesterday could not protect his airway and he was intubated and placed on mechanical ventilation. Pulmonary/critical care team following closely and help with vent management. No seizure-like activity or abnormal movements noted. EEG done and reviewed. Neurologist on the case. Patient is currently on IV Keppra 1000 twice daily Also patient started on IV vancomycin and cefepime per ID team recommendation for suspected sepsis. Cultures are pending. Patient has no fever for the last 3 days. Leukocyte count today still mildly elevated at 16 but coming down from 21 yesterday. Electrolytes are improving. Patient remains in critical condition. 01/26 Patient remains in the ICU intubated and on mechanical ventilation He is currently covered with IV vancomycin and cefepime, for suspected pneumonia . Nasal culture growing MRSA and sputum culture growing Klebsiella pneumonia 01/27 Patient remains intubated and on mechanical ventilation without sedation. No abnormal movements noted He is afebrile and blood pressure holding well. WBCs 11. He still somewhat acidotic with pH 7.3 and pCO2 high 61. BMP and liver enzymes were unremarkable. Nasal screen is positive for MRSA sputum Culture is positive for Klebsiella CSF culture from pulmonary suction presumptive MRSA. 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 Also sugar is high rather than low which goes against infection. And also his neck was supple on examined him on admission. I discussed with the staff the CSF sample waited more than 5 hours before it goes to the lab And chest x-ray showing significant pneumonia in the left lower lobe Currently he is on cefepime also on IV Keppra 01/29/2024 Patient is currently in the MICU. Intubated and on mechanical ventilator. Remains on IV hydration with D5 half-normal saline at 75 cc/h. Chest x-ray showed no acute cardiopulmonary process. Otherwise patient did have episodes of bright red blood per rectum and drop in hemoglobin level. He Protonix changed to twice daily and gastroenterology was consulted. Sputum cultures growing Klebsiella pneumoniae and being continued on cefepime. Nasals screen showed MRSA. CSF culture sh Gram stain and owed Staph aureus methicillin-resistant. Laboratory test showed WBC 14.5 hemoglobin 9.6 and platelets 130 sodium 140 potassium 4.0 chloride 109 bicarb is 28 BUN 18 and creatinine 0.32 and blood sugar 121 and calcium 7.6. Albumin 1.9. Current medications reviewed. Objective - Vital Signs Vital signs: Vital Signs Temp 98.0 F 01/29/24 08:00 Pulse 84 01/29/24 09:00 Resp 16 01/29/24 09:00 BP 124/77 01/29/24 09:00 Pulse Ox 99 01/29/24 09:00 FiO2 40 01/29/24 08:08 Intake & Output 01/28/24 01/29/24 01/29/24 18:59 06:59 18:59 Intake Total 2142 1882 453 Output Total 620 620 110 Balance 1522 1262 343 Weight 80.5 kg Intake: IV 1286 1036 234 Cefepime 2 gm In Sodium 100 100 Chloride 0.9% 100 ml @ 25 mls/hr IVPB Q8HR [facility] Rx# :[id number] Dextrose 5%-0.45% NaCl 1, 600 225 000 ml @ 75 mls/hr IV . [id number] [facility] Rx#:[id number] Dextrose 5%-0.9% NaCl 1, 900 300 000 ml @ 75 mls/hr IV . [id number] [facility] Rx#:[id number] Vancomycin 1,250 mg In 250 Sodium Chloride 0.9% 250 ml @ 83.333 mls/hr IVPB Q8H [facility]I Rx#:[id number] a-line 36 36 9 Intake, IV Titration 100 Amount Cefepime 2 gm In Sodium 100 Chloride 0.9% 100 ml @ 25 mls/hr IVPB Q8HR [facility]I Rx# :[id number] Tube Feeding 756 756 189 Other 90 30 Output: Urine 620 620 110 Other: Voiding Method Indwelling Catheter Indwelling Catheter # Bowel Movements 0 ABP, PAP, CO, CI - Last Documented Arterial Blood Pressure 108/62 - Exam - Exam --GENERAL: The patient is intubated and placed on mechanical ventilation HEENT: Pupils are round and equally reacting to light. EOMI. No scleral icterus. No conjunctival pallor. Normocephalic, atraumatic. No pharyngeal erythema. No thyromegaly. CARDIOVASCULAR: S1 and S2 present. No murmurs, rubs, or gallops. PULMONARY: Chest is clear to auscultation, no wheezing , no crackles. ABDOMEN: Soft, nontender, nondistended, normoactive bowel sounds. No palpable organomegaly. MUSCULOSKELETAL: No joint swelling or deformity. EXTREMITIES: No cyanosis, clubbing, or pedal edema. NEUROLOGICAL: Gross neurological examination did not reveal any focal deficits. SKIN: No rashes. no petechiae. - Labs CBC & Chem 7: 01/30/24 04:23 01/30/24 04:23 Labs: Abnormal Lab Results - Last 24 Hours (Table) 01/29/24 01/29/24 01/29/24 Range/Units 05:20 05:20 05:37 WBC 13.2 H (3.8-10.6) k/uL RBC 4.26 L (4.30-5.90) m/uL MCV 102.7 H (80.0-100.0) fL Plt Count 142 L (150-450) k/uL ABG pCO2 48 H (35-45) mmHg ABG pO2 110 H (83-108) mmHg ABG HCO3 32 H (21-25) mmol/L ABG Total CO2 33 H (19-24) mmol/L ABG O2 Saturation 98.9 H (94-97) % Sodium 146 H (137-145) mmol/L Chloride 115 H (98-107) mmol/L Carbon Dioxide 32 H (22-30) mmol/L Creatinine 0.38 L (0.66-1.25) mg/dL Glucose 140 H (74-99) mg/dL POC Glucose (mg/dL) (70-110) mg/dL Calcium 8.2 L (8.4-10.2) mg/dL 01/29/24 01/29/24 Range/Units 06:08 08:15 WBC 13.8 H (3.8-10.6) k/uL RBC 3.89 L (4.30-5.90) m/uL MCV 102.9 H (80.0-100.0) fL Plt Count 149 L (150-450) k/uL ABG pCO2 (35-45) mmHg ABG pO2 (83-108) mmHg ABG HCO3 (21-25) mmol/L ABG Total CO2 (19-24) mmol/L ABG O2 Saturation (94-97) % Sodium (137-145) mmol/L Chloride (98-107) mmol/L Carbon Dioxide (22-30) mmol/L Creatinine (0.66-1.25) mg/dL Glucose (74-99) mg/dL POC Glucose (mg/dL) 111 H (70-110) mg/dL Calcium (8.4-10.2) mg/dL Microbiology - Last 24 Hours (Table) 01/24/24 10:36 CSF Gram Stain - Final Cerebral Spinal Fluid CSF Culture - Final Methicillin resist S. aureus 01/25/24 15:30 Blood Culture - Preliminary Blood Assessment and Plan Assessment: Severe encephalopathy, could be multifactorial. Metabolic/toxic encephalopathy, Also most likely related to infection with pneumonia Acute hypoxic hypercapnic respiratory failure, patient unable to protect airway secondary to above, s/p intubation and mechanical ventilation Acute lower GI bleed. Patient does have bright red blood bowel movements on 01/29/2024. Suspected seizure-like activity on 01/24 x 2 Suspected sepsis. Secondary to pneumonia Hypernatremia. Resolved Non-STEMI with elevated troponin with some EKG changes but patient denies chest pain. Acute kidney injury, improving History of depression, psychosis and suicidal ideation Severe dehydration and hypovolemia History of chronic left leg wound, currently wound is closed, no evidence of cellulitis but mild deformity in the muscles of the left leg Elevated lactic acid improved. Plan: Continue with ICU management Continue vent management as per pulmonary team Started on cefepime. ID team consult on the case. Follow-up culture results Neurology consult in the case. Follow-up culture result showing s presumptive MRSA, most likely colonization Patient started on Keppra, repeat EEG Continue with IV hydration D5 normal saline at 75 Patient was started on Protonix IV twice daily. Gastroenterology was consulted. Pulmonary and nephrology team consult Neurology and cardiology team consultation Further recommendations as per clinical course of the patient DVT prophylaxis: heparin GI Prophylaxis: Pepcid Prognosis is guarded Time with Patient: Greater than 30
[2024-01-29 23:33] LABS: Glucose,Whole Blood 123 mg/dL (70-110)
[2024-01-30 04:50] LABS: ALT 20 U/L (4-49); AST 35 U/L (17-59); African American GFR (CKD) >90 (>60 ml/min/1.73 sqM); Alkaline Phosphatase 83 U/L (38-126); Anion Gap -1 mmol/L; Blood Urea Nitrogen 20 mg/dL (9-20); Calcium 8.1 mg/dL (8.4-10.2); Carbon Dioxide 29 mmol/L (22-30); Chloride 117 mmol/L (98-107); Glucose 127 mg/dL (74-99); Non-African American GFR(CKD) >90 (>60 ml/min/1.73 sqM); Potassium 3.8 mmol/L (3.5-5.1); Sodium 145 mmol/L (137-145); Total Bilirubin 0.8 mg/dL (0.2-1.3); Total Protein 4.2 g/dL (6.3-8.2)
[2024-01-30 05:30] LABS: HCT 36.4 % (39.0-53.0); HGB 11.9 gm/dL (13.0-17.5); MCH 32.6 pg (25.0-35.0); MCHC 32.7 g/dL (31.0-37.0); MCV 99.8 fL (80.0-100.0); Mean Platelet Volume 10.5; Platelet Count 126 k/uL (150-450); RBC 3.65 m/uL (4.30-5.90); RDW 13.6 % (11.5-15.5); WBC 17.1 k/uL (3.8-10.6)
[2024-01-30 05:33] LABS: ABG Base Excess 3.5 mmol/L; ABG HCO3 28 mmol/L (21-25); ABG PCO2 41 mmHg (35-45); ABG PH 7.44 (7.35-7.45); ABG PO2 78 mmHg (83-108); ABG TCO2 29 mmol/L (19-24); Allen Test Performed? Yes
[2024-01-30] MEDS ORDERED: Potassium Replacement Protocol 1 EACH MISC MISCELLANE PRN (06:15)
[2024-01-30 06:22] LABS: Glucose,Whole Blood 123 mg/dL (70-110)
[2024-01-30] MEDS: POTASSIUM CHLORIDE 10 MEQ in WATER FOR INJECTION 1 100ML.BAG IVPB SCH (06:41)
[2024-01-30] MEDS ORDERED: ONDANSETRON 4 MG/2 ML VIAL IVP PRN (07:00)
--- NOTE | 2024-01-30 08:49 | XR ---
EXAMINATION TYPE: XR chest 1V portable DATE OF EXAM: 01/30/2024 Comparison: 01/29/2024 Clinical History: 68-year-old male mechanical ventilation Findings: ET tube tip at the level of the medial clavicular heads. NG tube courses below the diaphragm. Left hoffman bclavian CVC tip at the cavoatrial junction. Heart upper limits of normal in size. Undergoing dense r etrocardiac opacity and blunted left costophrenic angle. There may be slight improvement in the opaci ty from prior. Impression: Ongoing small left pleural effusion along with dense retrocardiac/left basilar opacity. [facility], , 01/30/2024 8:47 AM
[2024-01-30 11:47] LABS: Glucose,Whole Blood 115 mg/dL (70-110)
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
--- NOTE | 2024-01-30 13:31 | P.PN ---
Subjective Progress Note Date: 01/30/24 Principal diagnosis: GI bleed HPI obtained from chart as patient is currently being seen in the ICU and is intubated on mechanical ventilation and nonresponsive. This is a 68-year-old male who was brought into the emergency department 10 days ago apparently found unresponsive at home. He was admitted and apparently was having apneic episodes and was transferred to the ICU subsequently intubated and sedated. He has a past medical history including coronary artery disease COPD, hypertension, [place],, CVA with CHI, anxiety, depression, PTSD, extensive alcohol use, and every day smoker. Patient was diagnosed with pneumonia, MRSA and remains in the ICU again intubated on mechanical ventilation 2 to 3 days ago sedation has been turned off and according to chart patient has been unresponsive except to painful stimuli at times. He has no family that he has been in to see him and patient's friend is not been able to be reached. Currently social work is petitioning for legal guardian. Supposedly today patient had 2 bright red bloody bowel movements with clots. Gastroenterology was consulted for GI bleed. Patient has been on subcu heparin every 8 hours, low-dose aspirin other than that no other anticoagulation. Hemoglobin 13.2 down from 14.2 yesterday. BUN normal. Chart reviewed and no records of any previous EGD or colonoscopy. 01/30/2024 Patient seen and examined today as a follow-up. He remains intubated and on mechanical ventilation. Still no sedation and patient is unarousable. He has not had any further bleeding throughout the night. He had dropped his hemoglobin yesterday to 9.6 and was transfused 2 units of blood. Today's hemoglobin 11.9. No elevation in his BUN. Liver enzymes normal. No acute changes reported through the night. He had a CTA of the abdomen and pelvis reporting left-sided colonic diverticulosis especially along the sigmoid colon. No findings of acute diverticulitis. Liquid stool throughout the colon sug gestive diarrheal state. However there is moderate solid stool distending the rectum up to 7.0 cm wide with some presacral edema. Correlate for possible fecal impaction. Small bilateral pleural effusions with adjacent atelectasis. Additional patchy airspace disease at the left base. Correlate for any symptoms of infectious or aspiration pneumonitis or developing pulmonary edema. Mild diffuse gastric wall thickening may be due to incomplete distention or gastritis. Possible subtle 1.4 cm hypodense lesion mid liver on delayed scan. Recommend 2 to 3-month follow-up contrast enhanced CT or MRI to reassess. Objective - Vital Signs Vital signs: Vital Signs Temp 97.8 F 01/30/24 04:00 Pulse 62 01/30/24 07:00 Resp 16 01/30/24 07:00 BP 129/76 01/30/24 07:00 Pulse Ox 99 01/30/24 07:00 FiO2 40 01/30/24 04:12 Intake & Output 01/29/24 01/30/24 01/30/24 18:59 06:59 18:59 Intake Total 3433 2276 Output Total 505 760 Balance 2928 1516 Weight 80.5 kg 80.8 kg Intake: IV 1214 1036 Cefepime 2 gm In Sodium 200 100 Chloride 0.9% 100 ml @ 25 mls/hr IVPB Q8HR [facility] Rx# :[id number] Dextrose 5%-0.45% NaCl 1, 975 900 000 ml @ 75 mls/hr IV . [id number] [facility] Rx#:[id number] a-line 39 36 Intake, IV Titration 2000 Amount Sodium Chloride 0.9% 1, 2000 000 ml @ 1000 mls/hr IV Q1H [facility] Rx#:[id number] Tube Feeding 189 Blood Product 1240 Rc As-1 Unit 310 [id number] Rc As-1 Unit 310 [id number] Other 30 Output: Gastric Drainage 350 Urine 505 410 Other: Voiding Method Indwelling Catheter Indwelling Catheter # Bowel Movements 1 ABP, PAP, CO, CI - Last Documented Arterial Blood Pressure 125/71 - Exam General appearance: The patient is intubated on mechanical ventilation. Not arousable HET: Head is normocephalic and atraumatic. Conjunctiva pink. Sclera anicteric. Neck: Supple without lymphadenopathy. Abdomen: Soft, nontender, nondistended with bowel sounds. No guarding or rigidity. Extremities: Normal skin color and turgor. No pedal edema Skin: No rashes, no jaundice Neurological: Intubated, unresponsive. - Labs CBC & Chem 7: 01/30/24 04:23 01/30/24 04:23 Labs: Abnormal Lab Results - Last 24 Hours (Table) 01/29/24 01/29/24 01/29/24 Range/Units 08:15 09:00 11:46 WBC 13.8 H (3.8-10.6) k/uL RBC 3.89 L (4.30-5.90) m/uL Hgb (13.0-17.5) gm/dL Hct (39.0-53.0) % MCV 102.9 H (80.0-100.0) fL Plt Count 149 L (150-450) k/uL ABG pO2 (83-108) mmHg ABG HCO3 (21-25) mmol/L ABG Total CO2 (19-24) mmol/L Hemoglobin (13.0-17.5) gm/dL Chloride (98-107) mmol/L Creatinine (0.66-1.25) mg/dL Glucose (74-99) mg/dL POC Glucose (mg/dL) 124 H (70-110) mg/dL Calcium (8.4-10.2) mg/dL Total Protein (6.3-8.2) g/dL Albumin (3.5-5.0) g/dL Crossmatch See Detail 01/29/24 01/29/24 01/29/24 Range/Units 14:00 14:00 18:00 WBC 14.2 H (3.8-10.6) k/uL RBC 3.21 L (4.30-5.90) m/uL Hgb 11.0 L (13.0-17.5) gm/dL Hct 33.1 L (39.0-53.0) % MCV 103.2 H (80.0-100.0) fL Plt Count (150-450) k/uL ABG pO2 (83-108) mmHg ABG HCO3 (21-25) mmol/L ABG Total CO2 (19-24) mmol/L Hemoglobin (13.0-17.5) gm/dL Chloride 119 H (98-107) mmol/L Creatinine 0.32 L (0.66-1.25) mg/dL Glucose 121 H (74-99) mg/dL POC Glucose (mg/dL) 118 H (70-110) mg/dL Calcium 7.6 L (8.4-10.2) mg/dL Total Protein 4.1 L (6.3-8.2) g/dL Albumin 1.9 L (3.5-5.0) g/dL Crossmatch 01/29/24 01/29/24 01/30/24 Range/Units 18:30 23:31 04:23 WBC 14.5 H 17.1 H (3.8-10.6) k/uL RBC 2.80 L 3.65 L (4.30-5.90) m/uL Hgb 9.6 L 11.9 L (13.0-17.5) gm/dL Hct 28.3 L 36.4 L (39.0-53.0) % MCV 101.3 H (80.0-100.0) fL Plt Count 130 L 126 L (150-450) k/uL ABG pO2 (83-108) mmHg ABG HCO3 (21-25) mmol/L ABG Total CO2 (19-24) mmol/L Hemoglobin (13.0-17.5) gm/dL Chloride (98-107) mmol/L Creatinine (0.66-1.25) mg/dL Glucose (74-99) mg/dL POC Glucose (mg/dL) 123 H (70-110) mg/dL Calcium (8.4-10.2) mg/dL Total Protein (6.3-8.2) g/dL Albumin (3.5-5.0) g/dL Crossmatch 01/30/24 01/30/24 01/30/24 Range/Units 04:23 05:29 06:21 WBC (3.8-10.6) k/uL RBC (4.30-5.90) m/uL Hgb (13.0-17.5) gm/dL Hct (39.0-53.0) % MCV (80.0-100.0) fL Plt Count (150-450) k/uL ABG pO2 78 L (83-108) mmHg ABG HCO3 28 H (21-25) mmol/L ABG Total CO2 29 H (19-24) mmol/L Hemoglobin 12.5 L (13.0-17.5) gm/dL Chloride 117 H (98-107) mmol/L Creatinine 0.34 L (0.66-1.25) mg/dL Glucose 127 H (74-99) mg/dL POC Glucose (mg/dL) 123 H (70-110) mg/dL Calcium 8.1 L (8.4-10.2) mg/dL Total Protein 4.2 L (6.3-8.2) g/dL Albumin 2.0 L (3.5-5.0) g/dL Crossmatch Microbiology - Last 24 Hours (Table) 01/24/24 10:36 CSF Gram Stain - Final Cerebral Spinal Fluid CSF Culture - Final Methicillin resist S. aureus Assessment and Plan (1) GI bleed Narrative/Plan: 68-year-old male admitted for altered mental status changes, unresponsiveness and pneumonia likely aspiration pneumonia. He has been hospitalized for last 10 days duration on heparin subcu every 8 hours and low-dose aspirin. History is obtained from chart. Was called that patient had 2 bright red bloody bowel movements with clots today. Hemoglobin stable at 13.2 although did have a drop 1 g from yesterday. BUN is normal. Unclear etiology of the GI bleed although sounds like a possible lower GI bleed. Patient is currently unresponsive, intubated on mechanical ventilation. He has no family and or friends to be contacted. Will continue to monitor closely. Change CBC done every 4 hours, CMP. Will order for CTA to evaluate for source of GI bleed. Likely lower GI bleed as patient's OG was flushed with 500 cc of saline with clear return. Will consult general surgery as well secondary to active GI bleed. CTA reports left-sided diverticulosis without diverticulitis. Liquid stool throughout the colon and moderate stool burden distending the rectum up to 7.0 cm correlate for possible fecal impaction. GI bleed may be secondary to diverticular bleed versus stercoral ulcer from stool impaction. Will plan on further evaluation with colonoscopy. Current Visit: Yes Status: Acute Code(s): K92.2 - GASTROINTESTINAL HEMORRHAGE, UNSPECIFIED SNOMED Code(s): 18720198 (2) Altered mental status Current Visit: Yes Status: Acute Code(s): R41.82 - ALTERED MENTAL STATUS, UNSPECIFIED SNOMED Code(s): 721420367 (3) Aspiration pneumonia Current Visit: Yes Status: Acute Code(s): J69.0 - PNEUMONITIS DUE TO INHALATION OF FOOD AND VOMIT SNOMED Code(s): 375055290 (4) Nicotine dependence Current Visit: No Status: Acute Priority: Low Code(s): F17.200 - NICOTINE DEPENDENCE, UNSPECIFIED, UNCOMPLICATED SNOMED Code(s): 95247194 Plan: 1. Continue symptomatic and supportive care 2. Protonix 40 mg twice daily 3. Hold anticoagulation, hold aspirin 4. Daily CBC, transfuse for hemoglobin less than 7 5. Continue to monitor closely for bleeding 6. CTA abdomen/pelvis ordered and reviewed 7. Consult to general surgery for active GI bleed, appreciate their recommendations 8. Continue ICU management 9. Enema ordered 10. Will plan for EGD and colonoscopy tomorrow, bowel prep this evening Thank you for this consultation, we will continue to follow. Dr. Marion Ritchie I agree with the dictator's note, documented as a scribe by Deonna Gallagher.
--- NOTE | 2024-01-30 13:34 | P.PN ---
Subjective Progress Note Date: 01/29/24 Principal diagnosis: Reason for follow-up is sepsis possible aspiration pneumonia Patient is a 68-year-old male with a past medical history significant for COPD hypertension [place] osteoarthritis patient did have a history of necrotizing infection of the left lower extremity with initial admission to hospital mental status changes subsequently have worsening of his respiratory status requiring intubation and concern for possible aspiration pneumonia. On today's evaluation that is 01/29/2024, Patient is afebrile patient remains to intubated on the vent FiO2 is currently stable at 40% no significant purulent secretion through the ET patient is hemodynamic stable not requiring any pressor support her mentation remains to be an issue. Patient white count is up to 14.5 creatinine 0.32 Objective - Vital Signs Vital signs: Vital Signs Temp 97.6 F 01/29/24 12:00 Pulse 76 01/29/24 12:00 Resp 14 01/29/24 12:00 BP 128/78 01/29/24 12:00 Pulse Ox 99 01/29/24 12:00 FiO2 40 01/29/24 12:21 Intake & Output 01/28/24 01/29/24 01/29/24 18:59 06:59 18:59 Intake Total 2142 1882 2787 Output Total 620 620 255 Balance 1522 1262 2532 Weight 80.5 kg 80.5 kg Intake: IV 1286 1036 568 Cefepime 2 gm In Sodium 100 100 100 Chloride 0.9% 100 ml @ 25 mls/hr IVPB Q8HR [facility] Rx# :[id number] Dextrose 5%-0.45% NaCl 1, 600 450 000 ml @ 75 mls/hr IV . [id number] [facility] Rx#:[id number] Dextrose 5%-0.9% NaCl 1, 900 300 000 ml @ 75 mls/hr IV . [id number] [facility] Rx#:[id number] Vancomycin 1,250 mg In 250 Sodium Chloride 0.9% 250 ml @ 83.333 mls/hr IVPB Q8H [facility] Rx#:[id number] a-line 36 36 18 Intake, IV Titration 100 2000 Amount Cefepime 2 gm In Sodium 100 Chloride 0.9% 100 ml @ 25 mls/hr IVPB Q8HR [facility] Rx# :[id number] Sodium Chloride 0.9% 1, 2000 000 ml @ 1000 mls/hr IV Q1H [facility] Rx#:[id number] Tube Feeding 756 756 189 Other 90 30 Output: Urine 620 620 255 Other: Voiding Method Indwelling Catheter Indwelling Catheter Indwelling Catheter # Bowel Movements 0 1 ABP, PAP, CO, CI - Last Documented Arterial Blood Pressure 112/61 - Exam GENERAL DESCRIPTION: An elderly male intubated on the vent RESPIRATORY SYSTEM: Unlabored breathing , decreased breath sounds at bases HEART: S1 S2 regular rate and rhythm , ABDOMEN: Soft , no tenderness EXTREMITIES: No edema feet - Labs CBC & Chem 7: 01/30/24 04:23 01/30/24 04:23 Labs: Abnormal Lab Results - Last 24 Hours (Table) 01/29/24 01/29/24 01/29/24 Range/Units 05:20 05:20 05:37 WBC 13.2 H (3.8-10.6) k/uL RBC 4.26 L (4.30-5.90) m/uL MCV 102.7 H (80.0-100.0) fL Plt Count 142 L (150-450) k/uL ABG pCO2 48 H (35-45) mmHg ABG pO2 110 H (83-108) mmHg ABG HCO3 32 H (21-25) mmol/L ABG Total CO2 33 H (19-24) mmol/L ABG O2 Saturation 98.9 H (94-97) % Sodium 146 H (137-145) mmol/L Chloride 115 H (98-107) mmol/L Carbon Dioxide 32 H (22-30) mmol/L Creatinine 0.38 L (0.66-1.25) mg/dL Glucose 140 H (74-99) mg/dL POC Glucose (mg/dL) (70-110) mg/dL Calcium 8.2 L (8.4-10.2) mg/dL 01/29/24 01/29/24 01/29/24 Range/Units 06:08 08:15 11:46 WBC 13.8 H (3.8-10.6) k/uL RBC 3.89 L (4.30-5.90) m/uL MCV 102.9 H (80.0-100.0) fL Plt Count 149 L (150-450) k/uL ABG pCO2 (35-45) mmHg ABG pO2 (83-108) mmHg ABG HCO3 (21-25) mmol/L ABG Total CO2 (19-24) mmol/L ABG O2 Saturation (94-97) % Sodium (137-145) mmol/L Chloride (98-107) mmol/L Carbon Dioxide (22-30) mmol/L Creatinine (0.66-1.25) mg/dL Glucose (74-99) mg/dL POC Glucose (mg/dL) 111 H 124 H (70-110) mg/dL Calcium (8.4-10.2) mg/dL Microbiology - Last 24 Hours (Table) 01/24/24 10:36 CSF Gram Stain - Final Cerebral Spinal Fluid CSF Culture - Final Methicillin resist S. aureus 01/25/24 15:30 Blood Culture - Preliminary Blood Assessment and Plan (1) Sepsis Current Visit: Yes Status: Acute Code(s): A41.9 - SEPSIS, UNSPECIFIED ORGANISM SNOMED Code(s): 48501777 (2) Aspiration pneumonia Current Visit: Yes Status: Acute Code(s): J69.0 - PNEUMONITIS DUE TO INHALATION OF FOOD AND VOMIT SNOMED Code(s): 943249009 Plan: 1patient with an episode of sepsis in this patient who did have significant evaded white count patient also have mild hypotension and source is likely aspiration pneumonitis and the patient noted to have significant vomiting at the time of intubation with evidence of left basilar infiltrate on the chest x-ray will need to cover for resistant gram-positive as well as gram-negative pathogen 2-penicillin allergy limit number of antibiotics safe to use 3-blood cultures so far negative and sputum cultures are currently growing Klebsiella, patient CSF culture growing presumptive MRSA however CSF white count was 0 and glucose was normal at 72 more likely representing contamination rather than true infection 4patient is currently covered with cefepime however if any further worsening of the white count will have to reculture and adjust antibiotic Dictation was produced using [employer] dictation software. please excuse any grammatical, word or spelling errors. Time with Patient: Less than 30
--- NOTE | 2024-01-30 13:38 | P.PN ---
Subjective Progress Note Date: 01/30/24 Principal diagnosis: Reason for follow-up is sepsis possible aspiration pneumonia Patient is a 68-year-old male with a past medical history significant for COPD hypertension [place] osteoarthritis patient did have a history of necrotizing infection of the left lower extremity with initial admission to hospital mental status changes subsequently have worsening of his respiratory status requiring intubation and concern for possible aspiration pneumonia. On today's evaluation that is 01/30/2024, patient has been afebrile, patient is hemodynamically stable not requiring any pressor support the patient remains to be intubated on the vent, FiO2 is currently stable at 40% no significant purulent secretion through the ET, patient did have a bleeding per rectum as reported by the nursing staff and also have a CTA of the abdominal suggestive of diarrheal state but no evidence of diverticulitis Patient white count is 17.1 creatinine 0.34 Objective - Vital Signs Vital signs: Vital Signs Temp 98.4 F 01/30/24 12:00 Pulse 91 01/30/24 13:00 Resp 14 01/30/24 13:00 BP 125/69 01/30/24 08:00 Pulse Ox 99 01/30/24 13:00 FiO2 40 01/30/24 13:00 Intake & Output 01/29/24 01/30/24 01/30/24 18:59 06:59 18:59 Intake Total 3433 2276 768 Output Total 505 760 250 Balance 2928 1516 518 Weight 80.5 kg 80.8 kg Intake: IV 1214 1036 468 Cefepime 2 gm In Sodium 200 100 Chloride 0.9% 100 ml @ 25 mls/hr IVPB Q8HR [facility] Rx# :[id number] Dextrose 5%-0.45% NaCl 1, 975 900 450 000 ml @ 75 mls/hr IV . [id number] [facility] Rx#:[id number] a-line 39 36 18 Intake, IV Titration 2000 300 Amount Cefepime 2 gm In Sodium 100 Chloride 0.9% 100 ml @ 25 mls/hr IVPB Q8HR [facility] Rx# :[id number] Potassium Chloride 10 meq 200 In Water For Injection 1 100ml.bag @ 100 mls/hr IVPB Q1H [facility] Rx#: [id number] Sodium Chloride 0.9% 1, 1999 000 ml @ 1000 mls/hr IV Q1H [facility] Rx#:[id number] Tube Feeding 189 Blood Product 1240 Rc As-1 Unit 310 [id number] Rc As-1 Unit 310 [id number] Other 30 Output: Gastric Drainage 350 Urine 505 410 250 Other: Voiding Method Indwelling Catheter Indwelling Catheter Indwelling Catheter # Bowel Movements 1 1 ABP, PAP, CO, CI - Last Documented Arterial Blood Pressure 118/58 - Labs CBC & Chem 7: 01/30/24 04:23 01/30/24 04:23 Labs: Abnormal Lab Results - Last 24 Hours (Table) 01/29/24 01/29/24 01/29/24 Range/Units 09:00 14:00 14:00 WBC 14.2 H (3.8-10.6) k/uL RBC 3.21 L (4.30-5.90) m/uL Hgb 11.0 L (13.0-17.5) gm/dL Hct 33.1 L (39.0-53.0) % MCV 103.2 H (80.0-100.0) fL Plt Count (150-450) k/uL ABG pO2 (83-108) mmHg ABG HCO3 (21-25) mmol/L ABG Total CO2 (19-24) mmol/L Hemoglobin (13.0-17.5) gm/dL Chloride 119 H (98-107) mmol/L Creatinine 0.32 L (0.66-1.25) mg/dL Glucose 121 H (74-99) mg/dL POC Glucose (mg/dL) (70-110) mg/dL Calcium 7.6 L (8.4-10.2) mg/dL Total Protein 4.1 L (6.3-8.2) g/dL Albumin 1.9 L (3.5-5.0) g/dL Crossmatch See Detail 01/29/24 01/29/24 01/29/24 Range/Units 18:00 18:30 23:31 WBC 14.5 H (3.8-10.6) k/uL RBC 2.80 L (4.30-5.90) m/uL Hgb 9.6 L (13.0-17.5) gm/dL Hct 28.3 L (39.0-53.0) % MCV 101.3 H (80.0-100.0) fL Plt Count 130 L (150-450) k/uL ABG pO2 (83-108) mmHg ABG HCO3 (21-25) mmol/L ABG Total CO2 (19-24) mmol/L Hemoglobin (13.0-17.5) gm/dL Chloride (98-107) mmol/L Creatinine (0.66-1.25) mg/dL Glucose (74-99) mg/dL POC Glucose (mg/dL) 118 H 123 H (70-110) mg/dL Calcium (8.4-10.2) mg/dL Total Protein (6.3-8.2) g/dL Albumin (3.5-5.0) g/dL Crossmatch 01/30/24 01/30/24 01/30/24 Range/Units 04:23 04:23 05:29 WBC 17.1 H (3.8-10.6) k/uL RBC 3.65 L (4.30-5.90) m/uL Hgb 11.9 L (13.0-17.5) gm/dL Hct 36.4 L (39.0-53.0) % MCV (80.0-100.0) fL Plt Count 126 L (150-450) k/uL ABG pO2 78 L (83-108) mmHg ABG HCO3 28 H (21-25) mmol/L ABG Total CO2 29 H (19-24) mmol/L Hemoglobin 12.5 L (13.0-17.5) gm/dL Chloride 117 H (98-107) mmol/L Creatinine 0.34 L (0.66-1.25) mg/dL Glucose 127 H (74-99) mg/dL POC Glucose (mg/dL) (70-110) mg/dL Calcium 8.1 L (8.4-10.2) mg/dL Total Protein 4.2 L (6.3-8.2) g/dL Albumin 2.0 L (3.5-5.0) g/dL Crossmatch 01/30/24 01/30/24 Range/Units 06:21 11:46 WBC (3.8-10.6) k/uL RBC (4.30-5.90) m/uL Hgb (13.0-17.5) gm/dL Hct (39.0-53.0) % MCV (80.0-100.0) fL Plt Count (150-450) k/uL ABG pO2 (83-108) mmHg ABG HCO3 (21-25) mmol/L ABG Total CO2 (19-24) mmol/L Hemoglobin (13.0-17.5) gm/dL Chloride (98-107) mmol/L Creatinine (0.66-1.25) mg/dL Glucose (74-99) mg/dL POC Glucose (mg/dL) 123 H 115 H (70-110) mg/dL Calcium (8.4-10.2) mg/dL Total Protein (6.3-8.2) g/dL Albumin (3.5-5.0) g/dL Crossmatch Assessment and Plan (1) Sepsis Current Visit: Yes Status: Acute Code(s): A41.9 - SEPSIS, UNSPECIFIED ORGANISM SNOMED Code(s): 86338622 (2) Aspiration pneumonia Current Visit: Yes Status: Acute Code(s): J69.0 - PNEUMONITIS DUE TO INHALATION OF FOOD AND VOMIT SNOMED Code(s): 782943361 Plan: 1patient with an episode of sepsis in this patient who did have significant evaded white count patient also have mild hypotension and source is likely aspiration pneumonitis and the patient noted to have significant vomiting at the time of intubation with evidence of left basilar infiltrate on the chest x-ray will need to cover for resistant gram-positive as well as gram-negative pathogen 2-penicillin allergy limit number of antibiotics safe to use 3-blood cultures so far negative and sputum cultures are currently growing Klebsiella, patient CSF culture growing presumptive MRSA however CSF white count was 0 and glucose was normal at 72 more likely representing contamination rather than true infection 4patient did have a worsening of his white count could be related to GI as the patient did have liquid stool seen on the CTA nurses has been advised to check stool for C. difficile you empirically add Flagyl continue cefepime Dictation was produced using [employer] dictation software. please excuse any grammatical, word or spelling errors. Time with Patient: Less than 30
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
[2024-01-30] MEDS: metroNIDAZOLE-NS PMX 500 MG in SALINE 1 100ML.BAG IVPB SCH (15:57)
[2024-01-30 17:12] LABS: Glucose,Whole Blood 111 mg/dL (70-110)
--- NOTE | 2024-01-30 17:48 | P.PN ---
Subjective pt seen and evaluated at bedside. per nursing bloody bowel movements decreased overnight. Objective - Vital Signs Vital signs: Vital Signs Temp 98.3 F 01/30/24 16:00 Pulse 78 01/30/24 17:00 Resp 17 01/30/24 17:00 BP 125/69 01/30/24 08:00 Pulse Ox 98 01/30/24 17:00 FiO2 30 01/30/24 16:00 Intake & Output 01/29/24 01/30/24 01/30/24 18:59 06:59 18:59 Intake Total 3433 2276 1280 Output Total 505 760 385 Balance 2928 1516 895 Weight 80.5 kg 80.8 kg Intake: IV 1214 1036 780 Cefepime 2 gm In Sodium 200 100 Chloride 0.9% 100 ml @ 25 mls/hr IVPB Q8HR [facility] Rx# :[id number] Dextrose 5%-0.45% NaCl 1, 975 900 750 000 ml @ 75 mls/hr IV . [id number] [facility]I Rx#:[id number] a-line 39 36 30 Intake, IV Titration 2000 500 Amount Cefepime 2 gm In Sodium 200 Chloride 0.9% 100 ml @ 25 mls/hr IVPB Q8HR FIFI Rx# :[id number] Potassium Chloride 10 meq 200 In Water For Injection 1 100ml.bag @ 100 mls/hr IVPB Q1H [facility]I Rx#: [id number] Sodium Chloride 0.9% 1, 2000 000 ml @ 1000 mls/hr IV Q1H FIFI Rx#:[id number] metroNIDAZOLE-NS PMX 500 100 mg In Saline 1 100ml.bag @ 100 mls/hr IVPB Q8HR FIFI Rx#:[id number] Tube Feeding 189 Blood Product 1240 As-1 Unit 310 [id number] As-1 Unit 310 [id number] Other 30 Output: Gastric Drainage 350 Urine 505 410 385 Other: Voiding Method Indwelling Catheter Indwelling Catheter Indwelling Catheter # Bowel Movements 1 1 ABP, PAP, CO, CI - Last Documented Arterial Blood Pressure 125/57 - Exam gen: nad cv: tachy pul: non labored breathing abd: soft, non distended, no guarding or rebound tenderness - Labs CBC & Chem 7: 01/30/24 04:23 01/30/24 04:23 Labs: Abnormal Lab Results - Last 24 Hours (Table) 01/29/24 01/29/24 01/29/24 Range/Units 09:00 18:00 18:30 WBC 14.5 H (3.8-10.6) k/uL RBC 2.80 L (4.30-5.90) m/uL Hgb 9.6 L (13.0-17.5) gm/dL Hct 28.3 L (39.0-53.0) % MCV 101.3 H (80.0-100.0) fL Plt Count 130 L (150-450) k/uL ABG pO2 (83-108) mmHg ABG HCO3 (21-25) mmol/L ABG Total CO2 (19-24) mmol/L Hemoglobin (13.0-17.5) gm/dL Chloride (98-107) mmol/L Creatinine (0.66-1.25) mg/dL Glucose (74-99) mg/dL POC Glucose (mg/dL) 118 H (70-110) mg/dL Calcium (8.4-10.2) mg/dL Total Protein (6.3-8.2) g/dL Albumin (3.5-5.0) g/dL Crossmatch See Detail 01/29/24 01/30/24 01/30/24 Range/Units 23:31 04:23 04:23 WBC 17.1 H (3.8-10.6) k/uL RBC 3.65 L (4.30-5.90) m/uL Hgb 11.9 L (13.0-17.5) gm/dL Hct 36.4 L (39.0-53.0) % MCV (80.0-100.0) fL Plt Count 126 L (150-450) k/uL ABG pO2 (83-108) mmHg ABG HCO3 (21-25) mmol/L ABG Total CO2 (19-24) mmol/L Hemoglobin (13.0-17.5) gm/dL Chloride 117 H (98-107) mmol/L Creatinine 0.34 L (0.66-1.25) mg/dL Glucose 127 H (74-99) mg/dL POC Glucose (mg/dL) 123 H (70-110) mg/dL Calcium 8.1 L (8.4-10.2) mg/dL Total Protein 4.2 L (6.3-8.2) g/dL Albumin 2.0 L (3.5-5.0) g/dL Crossmatch 01/30/24 01/30/24 01/30/24 Range/Units 05:29 06:21 11:46 WBC (3.8-10.6) k/uL RBC (4.30-5.90) m/uL Hgb (13.0-17.5) gm/dL Hct (39.0-53.0) % MCV (80.0-100.0) fL Plt Count (150-450) k/uL ABG pO2 78 L (83-108) mmHg ABG HCO3 28 H (21-25) mmol/L ABG Total CO2 29 H (19-24) mmol/L Hemoglobin 12.5 L (13.0-17.5) gm/dL Chloride (98-107) mmol/L Creatinine (0.66-1.25) mg/dL Glucose (74-99) mg/dL POC Glucose (mg/dL) 123 H 115 H (70-110) mg/dL Calcium (8.4-10.2) mg/dL Total Protein (6.3-8.2) g/dL Albumin (3.5-5.0) g/dL Crossmatch 01/30/24 Range/Units 17:09 WBC (3.8-10.6) k/uL RBC (4.30-5.90) m/uL Hgb (13.0-17.5) gm/dL Hct (39.0-53.0) % MCV (80.0-100.0) fL Plt Count (150-450) k/uL ABG pO2 (83-108) mmHg ABG HCO3 (21-25) mmol/L ABG Total CO2 (19-24) mmol/L Hemoglobin (13.0-17.5) gm/dL Chloride (98-107) mmol/L Creatinine (0.66-1.25) mg/dL Glucose (74-99) mg/dL POC Glucose (mg/dL) 111 H (70-110) mg/dL Calcium (8.4-10.2) mg/dL Total Protein (6.3-8.2) g/dL Albumin (3.5-5.0) g/dL Crossmatch Assessment and Plan Assessment: 68 yo male w/ gi bleed -gi to perform colonoscopy/egd -surgery will follow peripherally -continue trend to hgb Time with Patient: Less than 30
[2024-01-31 00:19] LABS: Glucose,Whole Blood 110 mg/dL (70-110)
[2024-01-31 05:05] LABS: Glucose,Whole Blood 120 mg/dL (70-110)
[2024-01-31 05:13] LABS: ABG Base Excess 2.5 mmol/L; ABG HCO3 27 mmol/L (21-25); ABG Oxygen Saturation 96.1 % (94-97); ABG PCO2 39 mmHg (35-45); ABG PH 7.44 (7.35-7.45); ABG PO2 76 mmHg (83-108); ABG TCO2 28 mmol/L (19-24)
[2024-01-31 05:18] LABS: Basophils % (A) 0 %; Eosinophils # (A) 0.2 k/uL (0-0.7); Eosinophils % (A) 1 %; HCT 33.3 % (39.0-53.0); HGB 11.6 gm/dL (13.0-17.5); Lymphocytes # (A) 1.9 k/uL (1.0-4.8); Lymphocytes % (A) 15 %; MCH 33.9 pg (25.0-35.0); MCHC 34.8 g/dL (31.0-37.0); MCV 97.4 fL (80.0-100.0); Mean Platelet Volume 10.1; Monocytes # (A) 0.7 k/uL (0-1.0); Monocytes % (A) 6 %; Neutrophils # (A) 9.6 k/uL (1.3-7.7); Neutrophils % (A) 77 %; Platelet Count 142 k/uL (150-450); RBC 3.42 m/uL (4.30-5.90); RDW 14.6 % (11.5-15.5); WBC 12.5 k/uL (3.8-10.6)
[2024-01-31 05:38] LABS: African American GFR (CKD) >90 (>60 ml/min/1.73 sqM); Anion Gap 1 mmol/L; Blood Urea Nitrogen 22 mg/dL (9-20); Calcium 8.3 mg/dL (8.4-10.2); Carbon Dioxide 25 mmol/L (22-30); Chloride 117 mmol/L (98-107); Glucose 116 mg/dL (74-99); Magnesium 1.6 mg/dL (1.6-2.3); Non-African American GFR(CKD) >90 (>60 ml/min/1.73 sqM); Potassium 3.5 mmol/L (3.5-5.1); Sodium 143 mmol/L (137-145)
[2024-01-31 05:58] LABS: Allen Test Performed? no
[2024-01-31] MEDS: MAGNESIUM SULFATE-D5W PMX 1 GM in DEXTROSE/WATER 1 100ML.BAG IVPB SCH (06:45)
[2024-01-31] MEDS: POTASSIUM CHLORIDE 20 MEQ in WATER FOR INJECTION 1 100ML.BAG IVPB SCH (06:45)
--- NOTE | 2024-01-31 08:31 | XR ---
EXAMINATION TYPE: XR chest 1V portable DATE OF EXAM: 01/31/2024 Comparison: 01/30/2024 Clinical History: 68-year-old male mechanical ventilation Findings: ET and NG tubes satisfactory. Heart upper limits of normal in size. Atherosclerotic arch calcificatio ns. Ongoing dense retrocardiac opacity. Left CVC tip to the lower SVC/cavoatrial junction region. Impression: Ongoing dense retrocardiac/left basilar opacity. [facility], , 01/31/2024 8:28 AM
--- NOTE | 2024-01-31 11:00 | P.PN ---
Subjective Progress Note Date: 01/30/24 This is a pleasant 68 years old male with past medical history of psychosis and multiple admission for suicidal ideation, hypertension, osteoarthritis Patient brought to the emergency room because he was found by his roommate on the floor, hard to wake up. When he came to emergency room he was answering questions but looks like he is continued to be confused Patient currently opens eyes and follows simple commands but not all every command. Also he answers some questions. However he looks confused significantly. He is disoriented to time place and person. He has no insight. But he denies any pain. No headache. No dizziness. Moves arms and legs. No tingling. Patient on admission was tachycardic and tachypneic but afebrile He had mild leukocytosis, high hemoglobin at 25 and sodium 156 and creatinine 1.7. Liver enzymes moderately elevated Lactic acid 4.0 Troponin is elevated 0.09 Urine drug screen is negative Serum alcohol less than 10. CT of the head and neck is negative for acute process for either side Chest x-ray is negative for acute process and I reviewed the chest x-rays and agree EKG showing sinus tachycardia at [address] depression 01/21 Patient remains confused, he open eyes to verbal stimuli, he can tell me his name and then he goes back to sleep No abnormal movement Patient sodium 1 significantly elevated at 155, he was given D5W at 75 mL/h, repeat sodium this morning is still pending Patient looks dehydrated. Mesh Cutter evaluated the patient for higher troponin which is thought secondary to dehydration however he has some ST depression in the lateral leads, sample display preparer recommended heparin drip x 48 hours as well as metoprolol and Lipitor which are ordered. Yesterday I discussed the case with the neurologist on-call, he recommended to h old on consult since the patient has severe metabolic abnormality. This morning patient remains confused with no significant improvement therefore we are going to reconsult neurology service. He has elevated hemoglobin and hematocrit, most likely secondary to dehydration, keep following levels till sodium level corrected and then reassess. Abdomen looks soft, patient denies abdominal pain or chest pain. 01/22 Patient was moved to the ICU yesterday because of concerns about inability to protect airway He was able to breathe okay this morning. He remains severely confused He remains on D5W at 150 mL/h, sodium down to 152 today Creatinine back to reference range Repeat CT of the brain is negative Heparin drip was discontinued and patient placed on subcutaneous heparin 01/23 Patient is becoming more encephalopathic, he is nonverbal, does not follow command does not answer questions. This is despite correction of his hyponatremia and other metabolic abnormalities like acute kidney injury. And there is concerned about ability to protect airway so far he does not need intervention but close monitoring in the ICU Today patient underwent lumbar puncture and results Showing RBC is elevated at 28, nucleated cells are 0. Glucose slightly elevated 72 and protein 106. 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 He had EEG initially done which was unremarkable another EEG is requested today, patient was started on IV Keppra 1000 mg Also ABG shows evidence of acute hypoxic hypercapnic respiratory failure, patient was unable to protect his airway and he got intubated today. In the meantime there is no abnormal movement currently. He is afebrile this morning. Last fever was on 01/22 and it was 100 degrees which is low-grade. Labs showing leukocytosis worse 21.7, hemoglobin 18, platelet count is 188. pH 7.1, pCO2 is high at 95. Oxygen with pO2 of 86 while on 15 L. Sodium 137, potassium 3.3. Liver enzymes not significantly elevated. CSF culture permanent results are still pending 01/25 Patient yesterday could not protect his airway and he was intubated and placed on mechanical ventilation. Pulmonary/critical care team following closely and help with vent management. No seizure-like activity or abnormal movements noted. EEG done and reviewed. Neurologist on the case. Patient is currently on IV Keppra 1000 twice daily Also patient started on IV vancomycin and cefepime per ID team recommendation for suspected sepsis. Cultures are pending. Patient has no fever for the last 3 days. Leukocyte count today still mildly elevated at 16 but coming down from 21 yesterday. Electrolytes are improving. Patient remains in critical condition. 01/26 Patient remains in the ICU intubated and on mechanical ventilation He is currently covered with IV vancomycin and cefepime, for suspected pneumonia . Nasal culture growing MRSA and sputum culture growing Klebsiella pneumonia 01/27 Patient remains intubated and on mechanical ventilation without sedation. No abnormal movements noted He is afebrile and blood pressure holding well. WBCs 11. He still somewhat acidotic with pH 7.3 and pCO2 high 61. BMP and liver enzymes were unremarkable. Nasal screen is positive for MRSA sputum Culture is positive for Klebsiella CSF culture from pulmonary suction presumptive MRSA. However suspicion of [employer] infection is very low as CSF sample showing no leukocytes, 0 WBC. Also sugar is high rather than low which goes against infection. And also his neck was supple on examined him on admission. I discussed with the staff the CSF sample waited more than 5 hours before it goes to the lab And chest x-ray showing significant pneumonia in the left lower lobe Currently he is on cefepime also on IV Keppra 01/29/2024 Patient is currently in the MICU. Intubated and on mechanical ventilator. Remains on IV hydration with D5 half-normal saline at 75 cc/h. Chest x-ray showed no acute cardiopulmonary process. Otherwise patient did have episodes of bright red blood per rectum and drop in hemoglobin level. He Protonix changed to twice daily and gastroenterology was consulted. Sputum cultures growing Klebsiella pneumoniae and being continued on cefepime. Nasals screen showed MRSA. CSF culture sh Gram stain and owed Staph aureus methicillin-resistant. Laboratory test showed WBC 14.5 hemoglobin 9.6 and platelets 130 sodium 140 potassium 4.0 chloride 109 bicarb is 28 BUN 18 and creatinine 0.32 and blood sugar 121 and calcium 7.6. Albumin 1.9. 01/30/2024 Patient in the MICU intubated and on mechanical ventilator. Mental status remains the same and patient is still encephalopathic. Patient received PRBC transfusion. No active rectal bleeding. Hemoglobin is fairly stable. GI is planning for colonoscopy tomorrow. Chest x-ray showed ongoing small left pleural effusion along with dense retrocardiac/left basilar opacity. Laboratory data showed WBC 17.1 hemoglobin 11.9 and platelets 126 sodium 145 potassium 3.8 chloride 117 bicarb is 29 BUN 20 and creatinine 0.34 and blood sugar 127 and calcium 8.1 and albumin 2.0. Patient remains on antibiotics in the form of cefepime. Sputum cultures growing Klebsiella pneumonia. ID and critical care team on board. Current medications reviewed. Objective - Vital Signs Vital signs: Vital Signs Temp 98.6 F 01/30/24 20:00 Pulse 80 01/30/24 21:00 Resp 15 01/30/24 21:00 BP 125/69 01/30/24 08:00 Pulse Ox 98 01/30/24 21:00 FiO2 40 01/30/24 20:00 Intake & Output 01/30/24 01/30/24 01/31/24 06:59 18:59 06:59 Intake Total 2276 1436 156 Output Total 760 455 100 Balance 1516 981 56 Weight 80.8 kg Intake: IV 1036 936 156 Cefepime 2 gm In Sodium 100 Chloride 0.9% 100 ml @ 25 mls/hr IVPB Q8HR [facility] Rx# :[id number] Dextrose 5%-0.45% NaCl 1, 900 900 150 000 ml @ 75 mls/hr IV . [id number] [facility] Rx#:[id number] a-line 36 36 6 Intake, IV Titration 500 Amount Cefepime 2 gm In Sodium 200 Chloride 0.9% 100 ml @ 25 mls/hr IVPB Q8HR [facility] Rx# :[id number] Potassium Chloride 10 meq 200 In Water For Injection 1 100ml.bag @ 100 mls/hr IVPB Q1H [facility] Rx#: [id number] metroNIDAZOLE-NS PMX 500 100 mg In Saline 1 100ml.bag @ 100 mls/hr IVPB Q8HR FIFI Rx#:[id number] Blood Product 1240 Rc As-1 Unit 310 [id number] Rc As-1 Unit 310 [id number] Output: Gastric Drainage 350 Urine 410 455 100 Other: Voiding Method Indwelling Catheter Indwelling Catheter Indwelling Catheter # Bowel Movements 1 ABP, PAP, CO, CI - Last Documented Arterial Blood Pressure 124/59 - Exam - Exam --GENERAL: The patient is intubated and placed on mechanical ventilation HEENT: Pupils are round and equally reacting to light. EOMI. No scleral icterus. No conjunctival pallor. Normocephalic, atraumatic. No pharyngeal erythema. No thyromegaly. CARDIOVASCULAR: S1 and S2 present. No murmurs, rubs, or gallops. PULMONARY: Chest is clear to auscultation, no wheezing , no crackles. ABDOMEN: Soft, nontender, nondistended, normoactive bowel sounds. No palpable organomegaly. MUSCULOSKELETAL: No joint swelling or deformity. EXTREMITIES: No cyanosis, clubbing, or pedal edema. NEUROLOGICAL: Gross neurological examination did not reveal any focal deficits. SKIN: No rashes. no petechiae. - Labs CBC & Chem 7: 01/31/24 04:28 01/31/24 04:28 Labs: Abnormal Lab Results - Last 24 Hours (Table) 01/29/24 01/29/24 01/30/24 Range/Units 09:00 23:31 04:23 WBC 17.1 H (3.8-10.6) k/uL RBC 3.65 L (4.30-5.90) m/uL Hgb 11.9 L (13.0-17.5) gm/dL Hct 36.4 L (39.0-53.0) % Plt Count 126 L (150-450) k/uL ABG pO2 (83-108) mmHg ABG HCO3 (21-25) mmol/L ABG Total CO2 (19-24) mmol/L Hemoglobin (13.0-17.5) gm/dL Chloride (98-107) mmol/L Creatinine (0.66-1.25) mg/dL Glucose (74-99) mg/dL POC Glucose (mg/dL) 123 H (70-110) mg/dL Calcium (8.4-10.2) mg/dL Total Protein (6.3-8.2) g/dL Albumin (3.5-5.0) g/dL Crossmatch See Detail 01/30/24 01/30/24 01/30/24 Range/Units 04:23 05:29 06:21 WBC (3.8-10.6) k/uL RBC (4.30-5.90) m/uL Hgb (13.0-17.5) gm/dL Hct (39.0-53.0) % Plt Count (150-450) k/uL ABG pO2 78 L (83-108) mmHg ABG HCO3 28 H (21-25) mmol/L ABG Total CO2 29 H (19-24) mmol/L Hemoglobin 12.5 L (13.0-17.5) gm/dL Chloride 117 H (98-107) mmol/L Creatinine 0.34 L (0.66-1.25) mg/dL Glucose 127 H (74-99) mg/dL POC Glucose (mg/dL) 123 H (70-110) mg/dL Calcium 8.1 L (8.4-10.2) mg/dL Total Protein 4.2 L (6.3-8.2) g/dL Albumin 2.0 L (3.5-5.0) g/dL Crossmatch 01/30/24 01/30/24 Range/Units 11:46 17:09 WBC (3.8-10.6) k/uL RBC (4.30-5.90) m/uL Hgb (13.0-17.5) gm/dL Hct (39.0-53.0) % Plt Count (150-450) k/uL ABG pO2 (83-108) mmHg ABG HCO3 (21-25) mmol/L ABG Total CO2 (19-24) mmol/L Hemoglobin (13.0-17.5) gm/dL Chloride (98-107) mmol/L Creatinine (0.66-1.25) mg/dL Glucose (74-99) mg/dL POC Glucose (mg/dL) 115 H 111 H (70-110) mg/dL Calcium (8.4-10.2) mg/dL Total Protein (6.3-8.2) g/dL Albumin (3.5-5.0) g/dL Crossmatch Microbiology - Last 24 Hours (Table) 01/25/24 15:30 Blood Culture - Final Blood Assessment and Plan Assessment: Severe encephalopathy, could be multifactorial. Metabolic/toxic encephalopathy, Also most likely related to infection with pneumonia Acute hypoxic hypercapnic respiratory failure, patient unable to protect airway secondary to above, s/p intubation and mechanical ventilation Acute lower GI bleed. Patient does have bright red blood bowel movements on 01/29/2024. Suspected seizure-like activity on 01/24 x 2 Suspected sepsis. Secondary to pneumonia Hypernatremia. Resolved Non-STEMI with elevated troponin with some EKG changes but patient denies chest pain. Acute kidney injury, improving History of depression, psychosis and suicidal ideation Severe dehydration and hypovolemia History of chronic left leg wound, currently wound is closed, no evidence of cellulitis but mild deformity in the muscles of the left leg Elevated lactic acid improved. Plan: Continue with ICU management Continue vent management as per pulmonary team Started on cefepime. ID team consult on the case. Follow-up culture results Neurology consult in the case. CSF culture result showing s presumptive MRSA, most likely contamination. Patient started on Keppra, repeat EEG Continue with IV hydration D5 normal saline at 75 Patient was started on Protonix IV twice daily. Gastroenterology is on board. Planning for colonoscopy tomorrow. Pulmonary and nephrology team consult Neurology and cardiology team consultation Further recommendations as per clinical course of the patient DVT prophylaxis: heparin GI Prophylaxis: Pepcid Prognosis is guarded Time with Patient: Greater than 30
--- NOTE | 2024-01-31 12:11 | P.PN ---
Subjective Progress Note Date: 01/31/24 Principal diagnosis: GI bleed HPI obtained from chart as patient is currently being seen in the ICU and is intubated on mechanical ventilation and nonresponsive. This is a 68-year-old male who was brought into the emergency department 10 days ago apparently found unresponsive at home. He was admitted and apparently was having apneic episodes and was transferred to the ICU subsequently intubated and sedated. He has a past medical history including coronary artery disease COPD, hypertension, [place],, CVA with CHI, anxiety, depression, PTSD, extensive alcohol use, and every day smoker. Patient was diagnosed with pneumonia, MRSA and remains in the ICU again intubated on mechanical ventilation 2 to 3 days ago sedation has been turned off and according to chart patient has been unresponsive except to painful stimuli at times. He has no family that he has been in to see him and patient's friend is not been able to be reached. Currently social work is petitioning for legal guardian. Supposedly today patient had 2 bright red bloody bowel movements with clots. Gastroenterology was consulted for GI bleed. Patient has been on subcu heparin every 8 hours, low-dose aspirin other than that no other anticoagulation. Hemoglobin 13.2 down from 14.2 yesterday. BUN normal. Chart reviewed and no records of any previous EGD or colonoscopy. 01/30/2024 Patient seen and examined today as a follow-up. He remains intubated and on mechanical ventilation. Still no sedation and patient is unarousable. He has not had any further bleeding throughout the night. He had dropped his hemoglobin yesterday to 9.6 and was transfused 2 units of blood. Today's hemoglobin 11.9. No elevation in his BUN. Liver enzymes normal. No acute changes reported through the night. He had a CTA of the abdomen and pelvis reporting left-sided colonic diverticulosis especially along the sigmoid colon. No findings of acute diverticulitis. Liquid stool throughout the colon sug gestive diarrheal state. However there is moderate solid stool distending the rectum up to 7.0 cm wide with some presacral edema. Correlate for possible fecal impaction. Small bilateral pleural effusions with adjacent atelectasis. Additional patchy airspace disease at the left base. Correlate for any symptoms of infectious or aspiration pneumonitis or developing pulmonary edema. Mild diffuse gastric wall thickening may be due to incomplete distention or gastritis. Possible subtle 1.4 cm hypodense lesion mid liver on delayed scan. Recommend 2 to 3-month follow-up contrast enhanced CT or MRI to reassess. 01/31/2024 Patient seen and examined today as a follow-up. No acute changes through the night. He did get an enema yesterday did have a small bowel movement with some clots. patient was scheduled to have EGD and colonoscopy today however bowel prep not ordered or given. Patient has not had any further bowel movements according to nursing. Hemoglobin continues to improve and is 11.6 today. Objective - Vital Signs Vital signs: Vital Signs Temp 92.7 F L 01/31/24 08:00 Pulse 51 L 01/31/24 11:00 Resp 14 01/31/24 11:00 BP 186/85 01/31/24 03:00 Pulse Ox 98 01/31/24 11:00 FiO2 40 01/31/24 08:30 Intake & Output 01/30/24 01/31/24 01/31/24 18:59 06:59 18:59 Intake Total 1436 1058 790 Output Total 455 450 185 Balance 981 608 605 Weight 84.4 kg 84.4 kg Intake: IV 936 1058 590 Cefepime 2 gm In Sodium 100 100 Chloride 0.9% 100 ml @ 25 mls/hr IVPB Q8HR [facility] Rx# :[id number] Dextrose 5%-0.45% NaCl 1, 900 825 375 000 ml @ 75 mls/hr IV . [id number] [facility] Rx#:[id number] a-line 36 33 15 metroNIDAZOLE-NS PMX 500 100 100 mg In Saline 1 100ml.bag @ 100 mls/hr IVPB Q8HR [facility]I Rx#:[id number] Intake, IV Titration 500 200 Amount Cefepime 2 gm In Sodium 200 Chloride 0.9% 100 ml @ 25 mls/hr IVPB Q8HR [facility] Rx# :[id number] Magnesium Sulfate-D5w Pmx 100 1 gm In Dextrose/Water 1 100ml.bag @ 100 mls/hr IVPB Q1H [facility] Rx#: [id number] Potassium Chloride 10 meq 200 In Water For Injection 1 100ml.bag @ 100 mls/hr IVPB Q1H [facility] Rx#: [id number] Potassium Chloride 20 meq 100 In Water For Injection 1 100ml.bag @ 50 mls/hr IVPB Q2H [facility] Rx#: [id number] metroNIDAZOLE-NS PMX 500 100 mg In Saline 1 100ml.bag @ 100 mls/hr IVPB Q8HR [facility]I Rx#:[id number] Output: Urine 455 450 185 Other: Voiding Method Indwelling Catheter Indwelling Catheter Indwelling Catheter # Bowel Movements 1 ABP, PAP, CO, CI - Last Documented Arterial Blood Pressure 138/61 - Exam General appearance: The patient is intubated on mechanical ventilation. Not arousable HET: Head is normocephalic and atraumatic. Conjunctiva pink. Sclera anicteric. Neck: Supple without lymphadenopathy. Abdomen: Soft, nontender, nondistended with bowel sounds. No guarding or rigidity. Extremities: Normal skin color and turgor. No pedal edema Skin: No rashes, no jaundice Neurological: Intubated, unresponsive. - Labs CBC & Chem 7: 01/31/24 04:28 01/31/24 04:28 Labs: Abnormal Lab Results - Last 24 Hours (Table) 01/30/24 01/31/24 01/31/24 Range/Units 17:09 04:28 04:28 WBC 12.5 H (3.8-10.6) k/uL RBC 3.42 L (4.30-5.90) m/uL Hgb 11.6 L (13.0-17.5) gm/dL Hct 33.3 L (39.0-53.0) % Plt Count 142 L (150-450) k/uL Neutrophils # 9.6 H (1.3-7.7) k/uL ABG pO2 (83-108) mmHg ABG HCO3 (21-25) mmol/L ABG Total CO2 (19-24) mmol/L Hemoglobin (13.0-17.5) gm/dL Chloride 117 H (98-107) mmol/L BUN 22 H (9-20) mg/dL Creatinine 0.42 L (0.66-1.25) mg/dL Glucose 116 H (74-99) mg/dL POC Glucose (mg/dL) 111 H (70-110) mg/dL Calcium 8.3 L (8.4-10.2) mg/dL 01/31/24 01/31/24 Range/Units 05:04 05:11 WBC (3.8-10.6) k/uL RBC (4.30-5.90) m/uL Hgb (13.0-17.5) gm/dL Hct (39.0-53.0) % Plt Count (150-450) k/uL Neutrophils # (1.3-7.7) k/uL ABG pO2 76 L (83-108) mmHg ABG HCO3 27 H (21-25) mmol/L ABG Total CO2 28 H (19-24) mmol/L Hemoglobin 11.3 L (13.0-17.5) gm/dL Chloride (98-107) mmol/L BUN (9-20) mg/dL Creatinine (0.66-1.25) mg/dL Glucose (74-99) mg/dL POC Glucose (mg/dL) 120 H (70-110) mg/dL Calcium (8.4-10.2) mg/dL Microbiology - Last 24 Hours (Table) 01/25/24 15:30 Blood Culture - Final Blood Assessment and Plan (1) GI bleed Narrative/Plan: 68-year-old male admitted for altered mental status changes, unresponsiveness an d pneumonia likely aspiration pneumonia. He has been hospitalized for last 10 days duration on heparin subcu every 8 hours and low-dose aspirin. History is obtained from chart. Was called that patient had 2 bright red bloody bowel movements with clots today. Hemoglobin stable at 13.2 although did have a drop 1 g from yesterday. BUN is normal. Unclear etiology of the GI bleed although sounds like a possible lower GI bleed. Patient is currently unresponsive, intubated on mechanical ventilation. He has no family and or friends to be contacted. Will continue to monitor closely. Change CBC done every 4 hours, CMP. Will order for CTA to evaluate for source of GI bleed. Likely lower GI bleed as patient's OG was flushed with 500 cc of saline with clear return. Will consult general surgery as well secondary to active GI bleed. CTA reports left-sided diverticulosis without diverticulitis. Liquid stool throughout the colon and moderate stool burden distending the rectum up to 7.0 c m correlate for possible fecal impaction. GI bleed may be secondary to diverticular bleed versus stercoral ulcer from stool impaction. Will plan on further evaluation with colonoscopy. Current Visit: Yes Status: Acute Code(s): K92.2 - GASTROINTESTINAL HEMORRHAGE, UNSPECIFIED SNOMED Code(s): 97851343 (2) Altered mental status Current Visit: Yes Status: Acute Code(s): R41.82 - ALTERED MENTAL STATUS, UNSPECIFIED SNOMED Code(s): 915368907 (3) Aspiration pneumonia Current Visit: Yes Status: Acute Code(s): J69.0 - PNEUMONITIS DUE TO INHALATION OF FOOD AND VOMIT SNOMED Code(s): 701362160 (4) Nicotine dependence Current Visit: No Status: Acute Priority: Low Code(s): F17.200 - NICOTINE DEPENDENCE, UNSPECIFIED, UNCOMPLICATED SNOMED Code(s): 18353568 Plan: 1. Continue symptomatic and supportive care 2. Protonix 40 mg twice daily 3. Hold anticoagulation, hold aspirin 4. Daily CBC, transfuse for hemoglobin less than 7 5. Continue to monitor closely for bleeding 6. CTA abdomen/pelvis ordered and reviewed 7. General Surgery on consultation and following, appreciate their recommendations 8. Continue ICU management 9. Bowel prep this evening 10. Will plan for EGD and colonoscopy tomorrow Thank you for this consultation, we will continue to follow. Dr. Marion Ritchie I agree with the dictator's note, documented as a scribe by Deonna Gallagher.
[2024-01-31 12:23] LABS: Glucose,Whole Blood 123 mg/dL (70-110)
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
--- NOTE | 2024-01-31 15:21 | P.PN ---
Subjective Progress Note Date: 01/31/24 CHIEF COMPLAINT: Aspiration pneumonia HISTORY OF PRESENT ILLNESS: Patient remains in the ICU on mechanical ventilation. Patient has had no further bloody bowel movements. EGD and colonoscopy rescheduled for tomorrow. Patient did not receive bowel prep yesterday. Vital stable. Hemoglobin stable at 11.6 PHYSICAL EXAM: VITAL SIGNS: Reviewed. GENERAL: no acute distress. ABDOMEN: Soft. Nondistended. Nontender. NEUROLOGIC: Intubated and sedated ASSESSMENT: 1. Acute lower GI bleed 2. Aspiration pneumonia PLAN: -Patient scheduled for EGD and colonoscopy tomorrow with GI service -Surgical service following peripherally -Continue to monitor hemoglobin Physician Respiratory Care Instructor note has been reviewed by physician. Signing provider agrees with the documented findings, assessment, and plan of care. Objective - Vital Signs Vital signs: Vital Signs Temp 93.2 F L 01/31/24 12:00 Pulse 54 L 01/31/24 15:00 Resp 19 01/31/24 15:00 BP 186/85 01/31/24 03:00 Pulse Ox 100 01/31/24 15:00 FiO2 40 01/31/24 12:13 Intake & Output 01/30/24 01/31/24 01/31/24 18:59 06:59 18:59 Intake Total 1436 1058 1024 Output Total 455 450 285 Balance 981 608 739 Weight 84.4 kg 84.4 kg Intake: IV 936 1058 824 Cefepime 2 gm In Sodium 100 100 Chloride 0.9% 100 ml @ 25 mls/hr IVPB Q8HR [facility] Rx# :[id number] Dextrose 5%-0.45% NaCl 1, 900 825 600 000 ml @ 75 mls/hr IV . [id number] [facility] Rx#:[id number] a-line 36 33 24 metroNIDAZOLE-NS PMX 500 100 100 mg In Saline 1 100ml.bag @ 100 mls/hr IVPB Q8HR [facility] Rx#:[id number] Intake, IV Titration 500 200 Amount Cefepime 2 gm In Sodium 200 Chloride 0.9% 100 ml @ 25 mls/hr IVPB Q8HR [facility] Rx# :[id number] Magnesium Sulfate-D5w Pmx 100 1 gm In Dextrose/Water 1 100ml.bag @ 100 mls/hr IVPB Q1H [facility] Rx#: [id number] Potassium Chloride 10 meq 200 In Water For Injection 1 100ml.bag @ 100 mls/hr IVPB Q1H [facility] Rx#: [id number] Potassium Chloride 20 meq 100 In Water For Injection 1 100ml.bag @ 50 mls/hr IVPB Q2H [facility] Rx#: [id number] metroNIDAZOLE-NS PMX 500 100 mg In Saline 1 100ml.bag @ 100 mls/hr IVPB Q8HR [facility] Rx#:[id number] Output: Urine 455 450 285 Other: Voiding Method Indwelling Catheter Indwelling Catheter Indwelling Catheter # Bowel Movements 1 ABP, PAP, CO, CI - Last Documented Arterial Blood Pressure 150/64 - Labs CBC & Chem 7: 02/01/24 05:00 02/01/24 05:00 Labs: Abnormal Lab Results - Last 24 Hours (Table) 01/30/24 01/31/24 01/31/24 Range/Units 17:09 04:28 04:28 WBC 12.5 H (3.8-10.6) k/uL RBC 3.42 L (4.30-5.90) m/uL Hgb 11.6 L (13.0-17.5) gm/dL Hct 33.3 L (39.0-53.0) % Plt Count 142 L (150-450) k/uL Neutrophils # 9.6 H (1.3-7.7) k/uL ABG pO2 (83-108) mmHg ABG HCO3 (21-25) mmol/L ABG Total CO2 (19-24) mmol/L Hemoglobin (13.0-17.5) gm/dL Chloride 117 H (98-107) mmol/L BUN 22 H (9-20) mg/dL Creatinine 0.42 L (0.66-1.25) mg/dL Glucose 116 H (74-99) mg/dL POC Glucose (mg/dL) 111 H (70-110) mg/dL Calcium 8.3 L (8.4-10.2) mg/dL 01/31/24 01/31/24 01/31/24 Range/Units 05:04 05:11 12:21 WBC (3.8-10.6) k/uL RBC (4.30-5.90) m/uL Hgb (13.0-17.5) gm/dL Hct (39.0-53.0) % Plt Count (150-450) k/uL Neutrophils # (1.3-7.7) k/uL ABG pO2 76 L (83-108) mmHg ABG HCO3 27 H (21-25) mmol/L ABG Total CO2 28 H (19-24) mmol/L Hemoglobin 11.3 L (13.0-17.5) gm/dL Chloride (98-107) mmol/L BUN (9-20) mg/dL Creatinine (0.66-1.25) mg/dL Glucose (74-99) mg/dL POC Glucose (mg/dL) 120 H 123 H (70-110) mg/dL Calcium (8.4-10.2) mg/dL Microbiology - Last 24 Hours (Table) 01/25/24 15:30 Blood Culture - Final Blood Assessment and Plan Assessment: 68 yo male with gi bleed -bowel movements has decreased -follow up gi recs Time with Patient: Less than 30
[2024-01-31 17:53] LABS: Glucose,Whole Blood 104 mg/dL (70-110)
[2024-01-31] MEDS: PEG 3350 (236 GM/BTL) + LYTES 4,000 ML BOTTLE PO ONE (22:33)
[2024-01-31 23:45] LABS: Glucose,Whole Blood 87 mg/dL (70-110)
[2024-02-01 05:11] LABS: ABG Base Excess 2.5 mmol/L; ABG HCO3 26 mmol/L (21-25); ABG Oxygen Saturation 97.4 % (94-97); ABG PCO2 36 mmHg (35-45); ABG PH 7.47 (7.35-7.45); ABG PO2 86 mmHg (83-108); ABG TCO2 27 mmol/L (19-24); Allen Test Performed? Yes
[2024-02-01 05:33] LABS: Basophils % (A) 0 %; Eosinophils # (A) 0.1 k/uL (0-0.7); Eosinophils % (A) 1 %; HGB 10.2 gm/dL (13.0-17.5); Lymphocytes # (A) 1.1 k/uL (1.0-4.8); Lymphocytes % (A) 12 %; MCH 33.4 pg (25.0-35.0); MCHC 33.9 g/dL (31.0-37.0); MCV 98.4 fL (80.0-100.0); Macrocytosis Slight; Mean Platelet Volume 10.5; Monocytes # (A) 0.5 k/uL (0-1.0); Monocytes % (A) 5 %; Neutrophils # (A) 7.7 k/uL (1.3-7.7); Neutrophils % (A) 81 %; Platelet Count 145 k/uL (150-450); RBC 3.05 m/uL (4.30-5.90); RDW 15.1 % (11.5-15.5); WBC 9.5 k/uL (3.8-10.6)
[2024-02-01 05:51] LABS: African American GFR (CKD) >90 (>60 ml/min/1.73 sqM); Anion Gap -1 mmol/L; Blood Urea Nitrogen 19 mg/dL (9-20); Calcium 7.8 mg/dL (8.4-10.2); Carbon Dioxide 24 mmol/L (22-30); Chloride 113 mmol/L (98-107); Glucose 97 mg/dL (74-99); Magnesium 1.7 mg/dL (1.6-2.3); Non-African American GFR(CKD) >90 (>60 ml/min/1.73 sqM); Potassium 3.3 mmol/L (3.5-5.1); Sodium 136 mmol/L (137-145)
[2024-02-01 06:29] LABS: Glucose,Whole Blood 97 mg/dL (70-110)
--- NOTE | 2024-02-01 08:44 | P.PN ---
Subjective Progress Note Date: 01/31/24 Principal diagnosis: Reason for follow-up is sepsis possible aspiration pneumonia Patient is a 68-year-old male with a past medical history significant for COPD hypertension VA osteoarthritis patient did have a history of necrotizing infection of the left lower extremity with initial admission to hospital mental status changes subsequently have worsening of his respiratory status requiring intubation and concern for possible aspiration pneumonia. On today's evaluation that is 01/31/2024, Patient is afebrile this morning patient remains to be intubated on the vent FiO2 is currently stable at 40% no significant purulent secretion through the ET patient not requiring any pressor support no further bleeding per rectum has been reported. Patient white count 8 came down to 12.5 creatinine is 0.42 blood culture repeat has been negative Objective - Vital Signs Vital signs: Vital Signs Temp 92.7 F L 01/31/24 08:00 Pulse 51 L 01/31/24 11:00 Resp 14 01/31/24 11:00 BP 186/85 01/31/24 03:00 Pulse Ox 98 01/31/24 11:00 FiO2 40 01/31/24 12:13 Intake & Output 01/30/24 01/31/24 01/31/24 18:59 06:59 18:59 Intake Total 1436 1058 790 Output Total 455 450 185 Balance 981 608 605 Weight 84.4 kg 84.4 kg Intake: IV 936 1058 590 Cefepime 2 gm In Sodium 100 100 Chloride 0.9% 100 ml @ 25 mls/hr IVPB Q8HR [facility] Rx# :[id number] Dextrose 5%-0.45% NaCl 1, 900 825 375 000 ml @ 75 mls/hr IV . [id number] [facility] Rx#:[id number] a-line 36 33 15 metroNIDAZOLE-NS PMX 500 100 100 mg In Saline 1 100ml.bag @ 100 mls/hr IVPB Q8HR [facility] Rx#:[id number] Intake, IV Titration 500 200 Amount Cefepime 2 gm In Sodium 200 Chloride 0.9% 100 ml @ 25 mls/hr IVPB Q8HR [facility] Rx# :[id number] Magnesium Sulfate-D5w Pmx 100 1 gm In Dextrose/Water 1 100ml.bag @ 100 mls/hr IVPB Q1H [facility] Rx#: [id number] Potassium Chloride 10 meq 200 In Water For Injection 1 100ml.bag @ 100 mls/hr IVPB Q1H [facility] Rx#: [id number] Potassium Chloride 20 meq 100 In Water For Injection 1 100ml.bag @ 50 mls/hr IVPB Q2H [facility] Rx#: [id number] metroNIDAZOLE-NS PMX 500 100 mg In Saline 1 100ml.bag @ 100 mls/hr IVPB Q8HR [facility] Rx#:[id number] Output: Urine 455 450 185 Other: Voiding Method Indwelling Catheter Indwelling Catheter Indwelling Catheter # Bowel Movements 1 ABP, PAP, CO, CI - Last Documented Arterial Blood Pressure 138/61 - Exam GENERAL DESCRIPTION: An elderly male intubated on the vent RESPIRATORY SYSTEM: Unlabored breathing , decreased breath sounds at bases HEART: S1 S2 regular rate and rhythm , ABDOMEN: Soft , no tenderness EXTREMITIES: No edema feet - Labs CBC & Chem 7: 02/01/24 05:00 02/01/24 05:00 Labs: Abnormal Lab Results - Last 24 Hours (Table) 01/30/24 01/31/24 01/31/24 Range/Units 17:09 04:28 04:28 WBC 12.5 H (3.8-10.6) k/uL RBC 3.42 L (4.30-5.90) m/uL Hgb 11.6 L (13.0-17.5) gm/dL Hct 33.3 L (39.0-53.0) % Plt Count 142 L (150-450) k/uL Neutrophils # 9.6 H (1.3-7.7) k/uL ABG pO2 (83-108) mmHg ABG HCO3 (21-25) mmol/L ABG Total CO2 (19-24) mmol/L Hemoglobin (13.0-17.5) gm/dL Chloride 117 H (98-107) mmol/L BUN 22 H (9-20) mg/dL Creatinine 0.42 L (0.66-1.25) mg/dL Glucose 116 H (74-99) mg/dL POC Glucose (mg/dL) 111 H (70-110) mg/dL Calcium 8.3 L (8.4-10.2) mg/dL 01/31/24 01/31/24 Range/Units 05:04 05:11 WBC (3.8-10.6) k/uL RBC (4.30-5.90) m/uL Hgb (13.0-17.5) gm/dL Hct (39.0-53.0) % Plt Count (150-450) k/uL Neutrophils # (1.3-7.7) k/uL ABG pO2 76 L (83-108) mmHg ABG HCO3 27 H (21-25) mmol/L ABG Total CO2 28 H (19-24) mmol/L Hemoglobin 11.3 L (13.0-17.5) gm/dL Chloride (98-107) mmol/L BUN (9-20) mg/dL Creatinine (0.66-1.25) mg/dL Glucose (74-99) mg/dL POC Glucose (mg/dL) 120 H (70-110) mg/dL Calcium (8.4-10.2) mg/dL Microbiology - Last 24 Hours (Table) 01/25/24 15:30 Blood Culture - Final Blood Assessment and Plan (1) Sepsis Current Visit: Yes Status: Acute Code(s): A41.9 - SEPSIS, UNSPECIFIED ORGANISM SNOMED Code(s): 09566734 (2) Aspiration pneumonia Current Visit: Yes Status: Acute Code(s): J69.0 - PNEUMONITIS DUE TO INHALATION OF FOOD AND VOMIT SNOMED Code(s): 183990905 Plan: 1patient with an episode of sepsis in this patient who did have significant evaded white count patient also have mild hypotension and source is likely aspiration pneumonitis and the patient noted to have significant vomiting at the time of intubation with evidence of left basilar infiltrate on the chest x-ray will need to cover for resistant gram-positive as well as gram-negative pathogen 2-penicillin allergy limit number of antibiotics safe to use 3-blood cultures so far negative and sputum cultures are currently growing Klebsiella, patient CSF culture growing presumptive MRSA however CSF white count was 0 and glucose was normal at 72 more likely representing contamination rather than true infection 4patient did have improvement in the white count down to 12,000 after addition of Flagyl to continue along with cefepime and monitor clinical course closely Dictation was produced using [employer] dictation software. please excuse any gra mmatical, word or spelling errors. Time with Patient: Less than 30
[2024-02-01] MEDS: POTASSIUM CHLORIDE 20 MEQ in SODIUM CHLORIDE 0.9% 100 ML IVPB SCH (09:08)
--- NOTE | 2024-02-01 09:08 | XR ---
EXAMINATION TYPE: XR chest 1V portable DATE OF EXAM: 02/01/2024 Comparison: 01/31/2024 Clinical History: 68-year-old male mechanical ventilation Findings: ET tube is in satisfactory, 3.2 cm from the elizabeth. NG tube courses below the diaphragm. Left subclav bina CVC tip at the cavoatrial junction. There is now, new near complete white out of the left hemitho rax. Only a small portion of the left upper lung remains aerated. Corresponding volume loss in the le ft hemithorax. Similar mild interstitial prominence right side. Impression: Interval development of near complete whiteout with volume loss left hemithorax. Correlate for mucous plugging and collapse. [facility], , 02/01/2024 9:06 AM
[2024-02-01] MEDS: MAGNESIUM SULFATE-D5W PMX 1 GM in DEXTROSE/WATER 1 100ML.BAG IVPB ONE (09:27)
--- NOTE | 2024-02-01 09:33 | XR ---
EXAMINATION TYPE: XR chest 1V portable DATE OF EXAM: 02/01/2024 Comparison: 02/01/2024 Clinical History: 68-year-old male post-brochoscopy Findings: ET tube satisfactory, 4.1 cm from the elizabeth. NG tube courses below the diaphragm. Left subclavian CV C tip cavoatrial junction. Improvement in the previous aeration throughout the left hemithorax. Left upper lobe now aerated. There is underlying moderate left pleural effusion with prominent retrocardia c and left basilar opacity that remains. Some patchy opacity has developed in the right base. Impression: 1. Improvement in aeration and volume following bronchoscopy in the left hemithorax. Left upper lobe is now aerated. There is a moderate left pleural effusion with prominent retrocardiac and left basila r opacity that remains. 2. New patchy opacity at the right base, probably atelectasis. [facility], , 02/01/2024 9:31 AM
[2024-02-01] MEDS: LACTATED RINGERS 1,000 ML IV SCH (11:02)
[2024-02-01 11:41] LABS: Glucose,Whole Blood 107 mg/dL (70-110)
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
[2024-02-01 12:38] LABS: Glucose,Whole Blood 104 mg/dL (70-110)
--- NOTE | 2024-02-01 12:53 | OP ---
OPERATIVE REPORT DATE OF SERVICE : PROCEDURES PERFORMED: Bronchoscopy, bronchoalveolar lavage of the left lung and suctioning of mucus plug in the left mainstem bronchus. PREOPERATIVE DIAGNOSIS: Left lung collapse secondary to mucus plugging involving the left mainstem bronchus. POSTOPERATIVE DIAGNOSIS: Left lung collapse secondary to mucus plugging involving the left mainstem bronchus. ANESTHESIA: None deployed, the patient is unresponsive on mechanical ventilation. The procedure was done on emergency basis. DESCRIPTION OF PROCEDURE: The patient was placed in a supine position, he was already intubated and mechanically ventilated, an adapter was applied to the endotracheal tube, during the procedure, we were monitoring his O2 saturation continuously. Blood pressure was continuously monitored via arterial line, and his O2 saturation was also monitored as well as his cardiac rhythm. The bronchoscope was advanced through the adapter down to the endotracheal tube, and I was able to visualize the endotracheal tube about 3 cm above the elizabeth. As I entered the left mainstem bronchus, I could see significant mucus plugging, mucoid secretions, tenacious, difficult to suction, but I was able to lavage the whole left mainstem bronchus, left upper lobe lingula, and left lower lobe and cleared all the mucus plugging from the left mainstem bronchus. Moved to the right side, a thorough examination done of right upper lobe, right middle lobe, right lower lobe, very minimal secretions noted, did not require any lavage or suctioning. The procedure was well tolerated, no complications, followup chest x-ray after the procedure showed significant improvement and aeration of the left lung with minimal atelectasis of the left lower lobe. MMODL / IJN: [id number] /
--- NOTE | 2024-02-01 13:28 | P.PN ---
Subjective Progress Note Date: 02/01/24 CHIEF COMPLAINT: Aspiration pneumonia HISTORY OF PRESENT ILLNESS: Patient remains in the ICU on mechanical ventilation. Patient scheduled for EGD and colonoscopy today with GI service. During the bowel prep last night patient did have bloody stools. Vital stable. WBC 9.5 hemoglobin 11.6-10.2 PHYSICAL EXAM: VITAL SIGNS: Reviewed. GENERAL: no acute distress. ABDOMEN: Soft. Nondistended. Nontender. NEUROLOGIC: Intubated and sedated ASSESSMENT: 1. Acute lower GI bleed 2. Aspiration pneumonia PLAN: -Patient scheduled for EGD and colonoscopy today with GI service -Surgical service following peripherally -Continue to monitor hemoglobin Physician Hvac Service Technician note has been reviewed by physician. Signing provider agrees with the documented findings, assessment, and plan of care. Objective - Vital Signs Vital signs: Vital Signs Temp 97.4 F L 02/01/24 12:00 Pulse 65 02/01/24 12:00 Resp 19 02/01/24 12:00 BP 167/78 02/01/24 11:00 Pulse Ox 95 02/01/24 12:00 FiO2 40 02/01/24 12:09 Intake & Output 01/31/24 02/01/24 02/01/24 18:59 06:59 18:59 Intake Total 1336 4296 1028 Output Total 420 350 215 Balance 916 3946 813 Weight 84.4 kg 92.5 kg Intake: IV 6110 998 7239 0.9 @ 10 60 Cefepime 2 gm In Sodium 100 100 Chloride 0.9% 100 ml @ 25 mls/hr IVPB Q8HR [facility] Rx# :[id number] Dextrose 5%-0.45% NaCl 1, 900 900 450 000 ml @ 75 mls/hr IV . [id number] [facility] Rx#:[id number] Magnesium Sulfate-D5w Pmx 100 1 gm In Dextrose/Water 1 100ml.bag @ 100 mls/hr IVPB ONCE ONE Rx#: [id number] Potassium Chloride 20 meq 200 In Sodium Chloride 0.9% 100 ml @ 55 mls/hr IVPB Q2H [facility] Rx#:[id number] a-line 36 36 18 metroNIDAZOLE-NS PMX 500 100 100 mg In Saline 1 100ml.bag @ 100 mls/hr IVPB Q8HR [facility] Rx#:[id number] Intake, IV Titration 200 Amount Magnesium Sulfate-D5w Pmx 100 1 gm In Dextrose/Water 1 100ml.bag @ 100 mls/hr IVPB Q1H [facility] Rx#: [id number] Potassium Chloride 20 meq 100 In Water For Injection 1 100ml.bag @ 50 mls/hr IVPB Q2H [facility] Rx#: [id number] Oral 3360 Output: Urine 420 350 215 Other: Voiding Method Indwelling Catheter Indwelling Catheter Indwelling Catheter # Bowel Movements 1 1 ABP, PAP, CO, CI - Last Documented Arterial Blood Pressure 138/60 - Labs CBC & Chem 7: 02/01/24 05:00 02/01/24 05:00 Labs: Abnormal Lab Results - Last 24 Hours (Table) 02/01/24 02/01/24 02/01/24 Range/Units 05:00 05:00 05:06 RBC 3.05 L (4.30-5.90) m/uL Hgb 10.2 L (13.0-17.5) gm/dL Hct 30.0 L (39.0-53.0) % Plt Count 145 L (150-450) k/uL ABG pH 7.47 H (7.35-7.45) ABG HCO3 26 H (21-25) mmol/L ABG Total CO2 27 H (19-24) mmol/L ABG O2 Saturation 97.4 H (94-97) % Hemoglobin 10.1 L (13.0-17.5) gm/dL Sodium 136 L (137-145) mmol/L Potassium 3.3 L (3.5-5.1) mmol/L Chloride 113 H (98-107) mmol/L Creatinine 0.42 L (0.66-1.25) mg/dL Calcium 7.8 L (8.4-10.2) mg/dL Assessment and Plan Assessment: 68 yo malw w/ resolving gi bleed s/p egd/colonoscopy, no active bleeding, possible stecoral ulcer no surgical intervention, recommending aggressive bowel movement Time with Patient: Less than 30
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
[2024-02-01] MEDS ORDERED: PROPOFOL 10 MG/ML 20 ML VIAL IV ONE (15:55)
[2024-02-01] MEDS: IV FLUID CONTINUATION 1,000 ML IV ONE (16:12)
--- NOTE | 2024-02-01 16:50 | P.PCN ---
Date of Procedure: 02/01/24 Procedure(s) Performed: Brief history: Patient is a 68-year-old white male admitted to hospital 10 days ago with acute respiratory failure and since has been intubated and remains on the vent in the intensive care unit. During the course of hospitalization, he developed acute GI bleed about 3 days ago when he started having several episodes of maroon- colored stools and drop his hemoglobin from 15 to 10 g/dL requiring 2 units of PRBC transfusion. CT angiogram was obtained but now no obvious source iden tified. In the meantime the patient stop bleeding. However yesterday he had few episodes of bright red blood per rectum and he is hence scheduled scheduled for an upper endoscopy as well as colonoscopy on an emergency basis. Patient does not have any family or legal guardian at this time. Procedure performed: Esophagogastroduodenoscopy Colonoscopy Preoperative diagnosis: Acute GI bleed Anesthesia: Patient intubated and sedated. Procedure: Patient is currently intubated and sedated. No consent obtained as patient does not have any legal guardian or family. The procedure being performed based on the emergency situation. Initially upper endoscopy was done. The Olympus GF 160 video endoscope was inserted inserted into the mouth and esophagus intubated without any difficulty and was gradually advanced into the stomach and duodenum and carefully examined. The bulb and second part of the duodenum appeared normal. The scope was then withdrawn into the stomach adequately insufflated with air and upon careful examination the antrum and body, cardia and fundus appeared normal. The scope was then withdrawn into the esophagus. The GE junction was located at 40 cm to the incisors. It appeared regular with some erythema and erosions consistent with reflux esophagitis. Rest of the esophagus appeared normal. Patient tolerated the procedure well. At this time the patient continued to remain sedation. Initial digital rectal examination was normal. Olympus CF 160 video colonoscope was then inserted into the rectum and gradually advanced to the cecum without any difficulty. Careful examination was performed as the scope was gradually being withdrawn. The prep was fair. Terminal ileum was intubated and no blood noted in this area.. There was thick stool noted throughout the entire colon which was thoroughly irrigated. The cecum, ascending colon, transverse colon, descending colon, sigmoid colon normal. Scattered sigmoid diverticulosis seen. There was large amount of solid hard stool that was in the rectum and despite multiple attempts I was not able to displace the stool from the rectum and hence the rectal mucosa could not be adequately visualized. It is very likely that the patient may have a stercoral ulcer at the site of fecal impaction that has caused the bleeding. Attempted retroflexion was not successful. Patient tolerated the procedure w ell. Impression: 1. Upper endoscopy revealed mild distal esophagitis but no evidence of active upper GI bleed 2. Colonoscopy revealed some old blood in the left colon and large amount of solid stool that was impacted in the rectum hence the mucosa in the rectum could not be adequately visualized. Possibility of a stercoral ulcer in the rectum at the site of fecal impaction could not be excluded. The rest of the colon appeared normal with scattered sigmoid diverticulosis. Recommendations: Findings of this examination were discussed with the nursing staff. He will receive soapsuds enemas twice daily for the next 2 days to relieve the fecal impaction. Monitor CBC daily. Resume tube feedings.
[2024-02-01 17:46] LABS: Glucose,Whole Blood 91 mg/dL (70-110)
[2024-02-01 23:47] LABS: Glucose,Whole Blood 94 mg/dL (70-110)
[2024-02-02 05:34] LABS: Glucose,Whole Blood 93 mg/dL (70-110)
[2024-02-02 05:49] LABS: ABG Base Excess 2.1 mmol/L; ABG HCO3 26 mmol/L (21-25); ABG PCO2 38 mmHg (35-45); ABG PH 7.45 (7.35-7.45); ABG PO2 111 mmHg (83-108); ABG TCO2 27 mmol/L (19-24); Allen Test Performed? Yes
[2024-02-02 06:31] LABS: Basophils % (A) 0 %; Eosinophils # (A) 0.1 k/uL (0-0.7); Eosinophils % (A) 2 %; HCT 31.7 % (39.0-53.0); HGB 10.1 gm/dL (13.0-17.5); Hypochromasia Slight; Lymphocytes # (A) 1.1 k/uL (1.0-4.8); Lymphocytes % (A) 16 %; MCHC 31.8 g/dL (31.0-37.0); Macrocytosis Slight; Mean Platelet Volume 10.4; Monocytes # (A) 0.3 k/uL (0-1.0); Monocytes % (A) 4 %; Neutrophils # (A) 5.5 k/uL (1.3-7.7); Neutrophils % (A) 77 %; Platelet Count 118 k/uL (150-450); RBC 3.05 m/uL (4.30-5.90); RDW 15.2 % (11.5-15.5); WBC 7.1 k/uL (3.8-10.6)
[2024-02-02 06:33] LABS: MCV 103.8 fL (80.0-100.0)
[2024-02-02 06:44] LABS: African American GFR (CKD) >90 (>60 ml/min/1.73 sqM); Anion Gap -1 mmol/L; Blood Urea Nitrogen 14 mg/dL (9-20); Calcium 7.8 mg/dL (8.4-10.2); Carbon Dioxide 22 mmol/L (22-30); Chloride 118 mmol/L (98-107); Glucose 90 mg/dL (74-99); Magnesium 1.6 mg/dL (1.6-2.3); Non-African American GFR(CKD) >90 (>60 ml/min/1.73 sqM); Potassium 3.3 mmol/L (3.5-5.1); Sodium 139 mmol/L (137-145)
[2024-02-02] MEDS: MAGNESIUM SULFATE-D5W PMX 1 GM in DEXTROSE/WATER 1 100ML.BAG IVPB SCH (07:55)
[2024-02-02] MEDS: POTASSIUM BICARBONATE/CIT AC 20 MEQ TABLET.EFF NG-TUBE SCH (08:17)
--- NOTE | 2024-02-02 09:28 | XR ---
EXAMINATION TYPE: XR chest 1V portable DATE OF EXAM: 02/02/2024 Comparison: 02/01/2024 Clinical History: 68-year-old male intubated patient, ICU follow-up Findings: ET and NG tubes are satisfactory. Heart border line in size. Semiupright exam with hazy and focal low er lung opacities. Mild interstitial prominence. Atherosclerotic arch calcifications. Left subclavian CVC tip lower SVC. Impression: Allowing for semiupright position, fairly similar appearance with [id number] bilateral pleural effusions with adjacent atelectasis and/or consolidation, left greater than right. [facility] Amos Thayer, , 02/02/2024 8:52 AM
[2024-02-02] MEDS: LACTULOSE 20 GM/30 ML CUP PO SCH (10:40)
[2024-02-02] MEDS: MAGNESIUM CITRATE 296 ML BOTTLE PO ONE (10:40)
--- NOTE | 2024-02-02 11:31 | P.PN ---
Subjective Progress Note Date: 02/02/24 CHIEF COMPLAINT: Aspiration pneumonia HISTORY OF PRESENT ILLNESS: Patient remains in the ICU on mechanical ventilation. Patient is status post EGD and colonoscopy with GI service. Results as shown mild distal esophagitis no active bleed and colonoscopy had reported old blood in the left colon and a large amount of solid stool that was impacted in the rectum. Patient has had no stool output with soapsuds enemas and patient having difficulty retaining the enemas. Afebrile. WBC is 7.1 Hgb stable at 10.1 potassium 3.3 and being replaced PHYSICAL EXAM: VITAL SIGNS: Reviewed. GENERAL: no acute distress. ABDOMEN: Soft. Nondistended. Nontender. NEUROLOGIC: Intubated and sedated ASSESSMENT: 1. Acute lower GI bleed status post EGD and colonoscopy 2. Fecal impaction 3. Aspiration pneumonia PLAN: -Magnesium citrate x 1 with daily lactulose and Dulcolax suppository daily ordered for the fecal impaction -Okay to hold enemas at this time -Continue to monitor hemoglobin Physician [employer] note has been reviewed by physician. Signing provider agrees with the documented findings, assessment, and plan of care. Attestation Patient seen and examined at bedside. Status post EGD and colonoscopy with GI service. Old blood noted in the left colon and large amount of solid stool that was impacted in the rectum. Patient has attempted multiple enemas without any significant success as he is unable to hold it in. Recommend adding Dulcolax suppository and will attempt fecal release with magnesium citrate and daily lactulose as well. Case was discussed at bedside with patient's nurse. Nettie Clement DO Objective - Vital Signs Vital signs: Vital Signs Temp 98.2 F 02/02/24 08:00 Pulse 73 02/02/24 11:00 Resp 15 02/02/24 11:00 BP 127/71 02/02/24 11:00 Pulse Ox 98 02/02/24 11:00 FiO2 35 02/02/24 09:17 Intake & Output 02/01/24 02/02/24 02/02/24 18:59 06:59 18:59 Intake Total 2143 1165 830 Output Total 430 432 180 Balance 1713 733 650 Weight 88.8 kg Intake: IV 2143 1075 730 0.9 @ 10 110 50 30 Cefepime 2 gm In Sodium 200 100 100 Chloride 0.9% 100 ml @ 25 mls/hr IVPB Q8HR [facility] Rx# :[id number] Dextrose 5%-0.45% NaCl 1, 900 825 300 000 ml @ 75 mls/hr IV . [id number] [facility] Rx#:[id number] Magnesium Sulfate-D5w Pmx 100 1 gm In Dextrose/Water 1 100ml.bag @ 100 mls/hr IVPB ONCE ONE Rx#: [id number] Magnesium Sulfate-D5w Pmx 200 1 gm In Dextrose/Water 1 100ml.bag @ 100 mls/hr IVPB Q1H [facility] Rx#: [id number] Potassium Chloride 20 meq 200 In Sodium Chloride 0.9% 100 ml @ 55 mls/hr IVPB Q2H [facility] Rx#:[id number] a-line 33 metroNIDAZOLE-NS PMX 500 200 100 100 mg In Saline 1 100ml.bag @ 100 mls/hr IVPB Q8HR [facility] Rx#:[id number] Tube Feeding 60 40 Other 30 60 Output: Urine 430 432 180 Other: Voiding Method Indwelling Catheter Indwelling Catheter Indwelling Catheter # Bowel Movements 1 ABP, PAP, CO, CI - Last Documented Arterial Blood Pressure 121/54 - Labs CBC & Chem 7: 02/02/24 06:14 02/02/24 06:14 Labs: Abnormal Lab Results - Last 24 Hours (Table) 02/02/24 02/02/24 02/02/24 Range/Units 05:48 06:14 06:14 RBC 3.05 L (4.30-5.90) m/uL Hgb 10.1 L (13.0-17.5) gm/dL Hct 31.7 L (39.0-53.0) % MCV 103.8 H D (80.0-100.0) fL Plt Count 118 L (150-450) k/uL ABG pO2 111 H (83-108) mmHg ABG HCO3 26 H (21-25) mmol/L ABG Total CO2 27 H (19-24) mmol/L ABG O2 Saturation 99.0 H (94-97) % Hemoglobin 10.3 L (13.0-17.5) gm/dL Potassium 3.3 L (3.5-5.1) mmol/L Chloride 118 H (98-107) mmol/L Creatinine 0.38 L (0.66-1.25) mg/dL Calcium 7.8 L (8.4-10.2) mg/dL Microbiology - Last 24 Hours (Table) 01/24/24 10:35 Acid Fast Bacilli Smear - Preliminary Cerebral Spinal Fluid Acid Fast Bacilli Culture - Preliminary
--- NOTE | 2024-02-02 11:48 | P.PN ---
Subjective Progress Note Date: 02/02/24 Principal diagnosis: GI bleed Patient seen and examined today as a follow-up. He remains in the ICU on mechanical ventilation, nonresponsive. Yesterday he underwent EGD and colo noscopy. Upper endoscopy revealed mild distal esophagitis but no evidence of active upper GI bleed. Colonoscopy revealed some old blood in the left colon and large amount of solid stool that was impacted in the rectum hence the mucosa in the rectum could not be adequately visualized. Need to consider possible sterile coral ulcer in the rectum. Rest of colon appeared normal with scattered sigmoid diverticulosis. Patient was given a soapsuds enema yesterday evening however nursing is reporting that is not really even going understanding and. No bowel movement. Otherwise no rectal bleeding or changes. Objective - Vital Signs Vital signs: Vital Signs Temp 98.2 F 02/02/24 08:00 Pulse 73 02/02/24 11:00 Resp 15 02/02/24 11:00 BP 127/71 02/02/24 11:00 Pulse Ox 98 02/02/24 11:00 FiO2 35 02/02/24 09:17 Intake & Output 02/01/24 02/02/24 02/02/24 18:59 06:59 18:59 Intake Total 2143 1165 830 Output Total 430 432 180 Balance 1713 733 650 Weight 88.8 kg Intake: IV 2143 1075 730 0.9 @ 10 110 50 30 Cefepime 2 gm In Sodium 200 100 100 Chloride 0.9% 100 ml @ 25 mls/hr IVPB Q8HR [facility] Rx# :[id number] Dextrose 5%-0.45% NaCl 1, 900 825 300 000 ml @ 75 mls/hr IV . [id number] [facility] Rx#:[id number] Magnesium Sulfate-D5w Pmx 100 1 gm In Dextrose/Water 1 100ml.bag @ 100 mls/hr IVPB ONCE ONE Rx#: [id number] Magnesium Sulfate-D5w Pmx 200 1 gm In Dextrose/Water 1 100ml.bag @ 100 mls/hr IVPB Q1H [facility] Rx#: [id number] Potassium Chloride 20 meq 200 In Sodium Chloride 0.9% 100 ml @ 55 mls/hr IVPB Q2H [facility] Rx#:[id number] a-line 33 metroNIDAZOLE-NS PMX 500 200 100 100 mg In Saline 1 100ml.bag @ 100 mls/hr IVPB Q8HR [facility] Rx#:[id number] Tube Feeding 60 40 Other 30 60 Output: Urine 430 432 180 Other: Voiding Method Indwelling Catheter Indwelling Catheter Indwelling Catheter # Bowel Movements 1 ABP, PAP, CO, CI - Last Documented Arterial Blood Pressure 121/54 - Exam General appearance: The patient is intubated on mechanical ventilation. Not arousable HET: Head is normocephalic and atraumatic. Conjunctiva pink. Sclera anicteric. Neck: Supple without lymphadenopathy. Abdomen: Soft, nontender, nondistended with bowel sounds. No guarding or rigidity. Extremities: Normal skin color and turgor. No pedal edema Skin: No rashes, no jaundice Neurological: Intubated, unresponsive. - Labs CBC & Chem 7: 02/02/24 06:14 02/02/24 06:14 Labs: Abnormal Lab Results - Last 24 Hours (Table) 02/02/24 02/02/24 02/02/24 Range/Units 05:48 06:14 06:14 RBC 3.05 L (4.30-5.90) m/uL Hgb 10.1 L (13.0-17.5) gm/dL Hct 31.7 L (39.0-53.0) % MCV 103.8 H D (80.0-100.0) fL Plt Count 118 L (150-450) k/uL ABG pO2 111 H (83-108) mmHg ABG HCO3 26 H (21-25) mmol/L ABG Total CO2 27 H (19-24) mmol/L ABG O2 Saturation 99.0 H (94-97) % Hemoglobin 10.3 L (13.0-17.5) gm/dL Potassium 3.3 L (3.5-5.1) mmol/L Chloride 118 H (98-107) mmol/L Creatinine 0.38 L (0.66-1.25) mg/dL Calcium 7.8 L (8.4-10.2) mg/dL Microbiology - Last 24 Hours (Table) 01/24/24 10:35 Acid Fast Bacilli Smear - Preliminary Cerebral Spinal Fluid Acid Fast Bacilli Culture - Preliminary Assessment and Plan (1) GI bleed Narrative/Plan: 68-year-old male admitted for altered mental status changes, unresponsiveness and pneumonia likely aspiration pneumonia. He has been hospitalized for last 10 days duration on heparin subcu every 8 hours and low-dose aspirin. History is obtained from chart. Was called that patient had 2 bright red bloody bowel movements with clots today. Hemoglobin stable at 13.2 although did have a drop 1 g from yesterday. BUN is normal. Unclear etiology of the GI bleed although sounds like a possible lower GI bleed. Patient is currently unresponsive, intubated on mechanical ventilation. He has no family and or friends to be contacted. Will continue to monitor closely. Change CBC done every 4 hours, CMP. Will order for CTA to evaluate for source of GI bleed. Likely lower GI bleed as patient's OG was flushed with 500 cc of saline with clear return. Will consult general surgery as well secondary to active GI bleed. CTA reports left-sided diverticulosis without diverticulitis. Liquid stool throughout the colon and moderate stool burden distending the rectum up to 7.0 cm correlate for possible fecal impaction. Patient is status post EGD and colonoscopy with no active bleeding noted. Colonoscopy revealed old blood in left colon large amount of stool impacted in the rectum therefore mucosa in the rectum could not be adequately visualized. Likely etiology of bleeding is secondary to sterile coral ulcer in the rectum from fecal impaction. Will continue with enema administration and recommend stool disimpaction from general surgery. Current Visit: Yes Status: Acute Code(s): K92.2 - GASTROINTESTINAL HEMORRHAGE, UNSPECIFIED SNOMED Code(s): 10714080 (2) Altered mental status Current Visit: Yes Status: Acute Code(s): R41.82 - ALTERED MENTAL STATUS, UNSPECIFIED SNOMED Code(s): 090854589 (3) Aspiration pneumonia Current Visit: Yes Status: Acute Code(s): J69.0 - PNEUMONITIS DUE TO INHALATION OF FOOD AND VOMIT SNOMED Code(s): 084463633 (4) Nicotine dependence Current Visit: No Status: Acute Priority: Low Code(s): F17.200 - NICOTINE DEPENDENCE, UNSPECIFIED, UNCOMPLICATED SNOMED Code(s): 68544248 Plan: 1. Continue symptomatic and supportive care 2. Protonix 40 mg daily for GI prophylaxis 3. May resume aspirin 4. May resume tube feeds 5. Continue with soapsuds enema twice a day today and tomorrow 6. Discussed with general surgery PA recommend stool disimpaction 7. No further workup planned by gastroenterology Thank you for this consultation, we will sign off at this time. Dr. Marion Ritchie I agree with the dictator's note, documented as a scribe by Deonna Gallagher.
[2024-02-02 12:10] LABS: Glucose,Whole Blood 108 mg/dL (70-110)
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
--- NOTE | 2024-02-02 15:24 | P.PN ---
Subjective Progress Note Date: 02/01/24 Principal diagnosis: Reason for follow-up is sepsis possible aspiration pneumonia Patient is a 68-year-old male with a past medical history significant for COPD hypertension [place] osteoarthritis patient did have a history of necrotizing infection of the left lower extremity with initial admission to hospital mental status changes subsequently have worsening of his respiratory status requiring intubation and concern for possible aspiration pneumonia. On today's evaluation that is 02/01/2024,the patient continues to be afebrile, the patient remains to be debated on the vent FiO2 is currently stable at 35% no significant purulent secretions through the ET patient not requiring any pressor support having diarrhea as the patient was getting bowel prep for colonoscopy. Patient white count is 9.5 creatinine is 0.40 Objective - Vital Signs Vital signs: Vital Signs Temp 97.4 F L 02/01/24 08:00 Pulse 70 02/01/24 08:00 Resp 15 02/01/24 08:00 BP 167/78 02/01/24 08:00 Pulse Ox 100 02/01/24 08:00 FiO2 40 02/01/24 08:00 Intake & Output 01/31/24 02/01/24 02/01/24 18:59 06:59 18:59 Intake Total 1336 4296 78 Output Total 420 350 30 Balance 916 3946 48 Weight 84.4 kg 92.5 kg Intake: IV 1136 936 78 Cefepime 2 gm In Sodium 100 Chloride 0.9% 100 ml @ 25 mls/hr IVPB Q8HR [facility] Rx# :[id number] Dextrose 5%-0.45% NaCl 1, 900 900 75 000 ml @ 75 mls/hr IV . [id number] [facility] Rx#:[id number] a-line 36 36 3 metroNIDAZOLE-NS PMX 500 100 mg In Saline 1 100ml.bag @ 100 mls/hr IVPB Q8HR [facility] Rx#:[id number] Intake, IV Titration 200 Amount Magnesium Sulfate-D5w Pmx 100 1 gm In Dextrose/Water 1 100ml.bag @ 100 mls/hr IVPB Q1H [facility] Rx#: [id number] Potassium Chloride 20 meq 100 In Water For Injection 1 100ml.bag @ 50 mls/hr IVPB Q2H [facility] Rx#: [id number] Oral 3360 Output: Urine 420 350 30 Other: Voiding Method Indwelling Catheter Indwelling Catheter # Bowel Movements 1 ABP, PAP, CO, CI - Last Documented Arterial Blood Pressure 130/61 - Exam GENERAL DESCRIPTION: An elderly male intubated on the vent RESPIRATORY SYSTEM: Unlabored breathing , decreased breath sounds at bases HEART: S1 S2 regular rate and rhythm , ABDOMEN: Soft , no tenderness EXTREMITIES: No edema feet - Labs CBC & Chem 7: 02/02/24 06:14 02/02/24 06:14 Labs: Abnormal Lab Results - Last 24 Hours (Table) 01/31/24 02/01/24 02/01/24 Range/Units 12:21 05:00 05:00 RBC 3.05 L (4.30-5.90) m/uL Hgb 10.2 L (13.0-17.5) gm/dL Hct 30.0 L (39.0-53.0) % Plt Count 145 L (150-450) k/uL ABG pH (7.35-7.45) ABG HCO3 (21-25) mmol/L ABG Total CO2 (19-24) mmol/L ABG O2 Saturation (94-97) % Hemoglobin (13.0-17.5) gm/dL Sodium 136 L (137-145) mmol/L Potassium 3.3 L (3.5-5.1) mmol/L Chloride 113 H (98-107) mmol/L Creatinine 0.42 L (0.66-1.25) mg/dL POC Glucose (mg/dL) 123 H (70-110) mg/dL Calcium 7.8 L (8.4-10.2) mg/dL 02/01/24 Range/Units 05:06 RBC (4.30-5.90) m/uL Hgb (13.0-17.5) gm/dL Hct (39.0-53.0) % Plt Count (150-450) k/uL ABG pH 7.47 H (7.35-7.45) ABG HCO3 26 H (21-25) mmol/L ABG Total CO2 27 H (19-24) mmol/L ABG O2 Saturation 97.4 H (94-97) % Hemoglobin 10.1 L (13.0-17.5) gm/dL Sodium (137-145) mmol/L Potassium (3.5-5.1) mmol/L Chloride (98-107) mmol/L Creatinine (0.66-1.25) mg/dL POC Glucose (mg/dL) (70-110) mg/dL Calcium (8.4-10.2) mg/dL Assessment and Plan (1) Sepsis Current Visit: Yes Status: Acute Code(s): A41.9 - SEPSIS, UNSPECIFIED ORGANISM SNOMED Code(s): 98875475 (2) Aspiration pneumonia Current Visit: Yes Status: Acute Code(s): J69.0 - PNEUMONITIS DUE TO INHALATION OF FOOD AND VOMIT SNOMED Code(s): 746717507 Plan: 1patient with an episode of sepsis in this patient who did have significant evaded white count patient also have mild hypotension and source is likely aspiration pneumonitis and the patient noted to have significant vomiting at the time of intubation with evidence of left basilar infiltrate on the chest x-ray will need to cover for resistant gram-positive as well as gram-negative pathogen 2-penicillin allergy limit number of antibiotics safe to use 3-blood cultures has been r negative and sputum cultures are currently growing Klebsiella, patient CSF culture growing presumptive MRSA however CSF white count was 0 and glucose was normal at 72 more likely representing contamination rather than true infection 4patient remains to be afebrile white count has normalized we will continue with cefepime and Flagyl and monitor clinical course closely Dictation was produced using [employer] dictation software. please excuse any grammatical, word or spelling errors. Time with Patient: Less than 30
--- NOTE | 2024-02-02 15:25 | P.PN ---
Subjective Progress Note Date: 02/02/24 Principal diagnosis: Reason for follow-up is sepsis possible aspiration pneumonia Patient is a 68-year-old male with a past medical history significant for COPD hypertension [place] osteoarthritis patient did have a history of necrotizing infection of the left lower extremity with initial admission to hospital mental status changes subsequently have worsening of his respiratory status requiring intubation and concern for possible aspiration pneumonia.Patient did have a EGD with evidence of esophagitis colonoscopy possibility of stercoral ulcer in the rectum On today's evaluation that is 02/02/2024,the patient remains to be afebrile, patient is on ventilator patient FiO2 is currently stable at 35% no significant purulent secretion through the ET patient is hemodynamic stable not requiring any pressor support and no other changes has been reported by the nursing staff. Patient white count is 7.1, creatinine is 0.38 Objective - Vital Signs Vital signs: Vital Signs Temp 98.1 F 02/02/24 12:00 Pulse 70 02/02/24 12:00 Resp 16 02/02/24 12:00 BP 134/77 02/02/24 12:00 Pulse Ox 100 02/02/24 12:00 FiO2 40 02/02/24 12:00 Intake & Output 02/01/24 02/02/24 02/02/24 18:59 06:59 18:59 Intake Total 2143 1165 1060 Output Total 430 432 220 Balance 1713 733 840 Weight 88.8 kg Intake: IV 2143 1075 900 0.9 @ 10 110 50 50 Cefepime 2 gm In Sodium 200 100 100 Chloride 0.9% 100 ml @ 25 mls/hr IVPB Q8HR [facility] Rx# :[id number] Dextrose 5%-0.45% NaCl 1, 900 825 450 000 ml @ 75 mls/hr IV . [id number] [facility] Rx#:[id number] Magnesium Sulfate-D5w Pmx 100 1 gm In Dextrose/Water 1 100ml.bag @ 100 mls/hr IVPB ONCE ONE Rx#: [id number] Magnesium Sulfate-D5w Pmx 200 1 gm In Dextrose/Water 1 100ml.bag @ 100 mls/hr IVPB Q1H [facility] Rx#: [id number] Potassium Chloride 20 meq 200 In Sodium Chloride 0.9% 100 ml @ 55 mls/hr IVPB Q2H [facility] Rx#:[id number] a-line 33 metroNIDAZOLE-NS PMX 500 200 100 100 mg In Saline 1 100ml.bag @ 100 mls/hr IVPB Q8HR [facility] Rx#:[id number] Tube Feeding 60 70 Other 30 90 Output: Urine 430 432 220 Other: Voiding Method Indwelling Catheter Indwelling Catheter Indwelling Catheter # Bowel Movements 1 ABP, PAP, CO, CI - Last Documented Arterial Blood Pressure 121/54 - Exam GENERAL DESCRIPTION: An elderly male intubated on the vent RESPIRATORY SYSTEM: Unlabored breathing , decreased breath sounds at bases HEART: S1 S2 regular rate and rhythm , ABDOMEN: Soft , no tenderness EXTREMITIES: No edema feet - Labs CBC & Chem 7: 02/02/24 06:14 02/02/24 06:14 Labs: Abnormal Lab Results - Last 24 Hours (Table) 02/02/24 02/02/24 02/02/24 Range/Units 05:48 06:14 06:14 RBC 3.05 L (4.30-5.90) m/uL Hgb 10.1 L (13.0-17.5) gm/dL Hct 31.7 L (39.0-53.0) % MCV 103.8 H D (80.0-100.0) fL Plt Count 118 L (150-450) k/uL ABG pO2 111 H (83-108) mmHg ABG HCO3 26 H (21-25) mmol/L ABG Total CO2 27 H (19-24) mmol/L ABG O2 Saturation 99.0 H (94-97) % Hemoglobin 10.3 L (13.0-17.5) gm/dL Potassium 3.3 L (3.5-5.1) mmol/L Chloride 118 H (98-107) mmol/L Creatinine 0.38 L (0.66-1.25) mg/dL Calcium 7.8 L (8.4-10.2) mg/dL Microbiology - Last 24 Hours (Table) 01/24/24 10:35 Acid Fast Bacilli Smear - Preliminary Cerebral Spinal Fluid Acid Fast Bacilli Culture - Preliminary Assessment and Plan (1) Sepsis Current Visit: Yes Status: Acute Code(s): A41.9 - SEPSIS, UNSPECIFIED ORGANISM SNOMED Code(s): 96223914 (2) Aspiration pneumonia Current Visit: Yes Status: Acute Code(s): J69.0 - PNEUMONITIS DUE TO INHALATION OF FOOD AND VOMIT SNOMED Code(s): 495602640 Plan: 1patient with an episode of sepsis in this patient who did have significant evaded white count patient also have mild hypotension and source is likely a spiration pneumonitis and the patient noted to have significant vomiting at the time of intubation with evidence of left basilar infiltrate on the chest x-ray will need to cover for resistant gram-positive as well as gram-negative pathogen 2-penicillin allergy limit number of antibiotics safe to use 3-blood cultures has been negative and sputum cultures are currently growing Klebsiella, patient CSF culture growing presumptive MRSA however CSF white count was 0 and glucose was normal at 72 more likely representing contamination rather than true infection 4patient remains to be afebrile white count has normalized 5-patient is currently being treated with cefepime and Flagyl to cover for possi ble pneumonia/abdominal source and monitor clinical course closely Dictation was produced using [employer] dictation software. please excuse any grammatical, word or spelling errors. Time with Patient: Less than 30
[2024-02-02 17:33] LABS: Glucose,Whole Blood 98 mg/dL (70-110)
--- NOTE | 2024-02-02 20:26 | P.PN ---
Subjective Progress Note Date: 01/31/24 This is a pleasant 68 years old male with past medical history of psychosis and multiple admission for suicidal ideation, hypertension, osteoarthritis Patient brought to the emergency room because he was found by his roommate on the floor, hard to wake up. When he came to emergency room he was answering questions but looks like he is continued to be confused Patient currently opens eyes and follows simple commands but not all every command. Also he answers some questions. However he looks confused significantly. He is disoriented to time place and person. He has no insight. But he denies any pain. No headache. No dizziness. Moves arms and legs. No tingling. Patient on admission was tachycardic and tachypneic but afebrile He had mild leukocytosis, high hemoglobin at 25 and sodium 156 and creatinine 1.7. Liver enzymes moderately elevated Lactic acid 4.0 Troponin is elevated 0.09 Urine drug screen is negative Serum alcohol less than 10. CT of the head and neck is negative for acute process for either side Chest x-ray is negative for acute process and I reviewed the chest x-rays and agree EKG showing sinus tachycardia at [address] depression 01/21 Patient remains confused, he open eyes to verbal stimuli, he can tell me his name and then he goes back to sleep No abnormal movement Patient sodium 1 significantly elevated at 155, he was given D5W at 75 mL/h, repeat sodium this morning is still pending Patient looks dehydrated. Business Banking Representative evaluated the patient for higher troponin which is thought secondary to dehydration however he has some ST depression in the lateral leads, recreation manager recommended heparin drip x 48 hours as well as metoprolol and Lipitor which are ordered. Yesterday I discussed the case with the neurologist on-call, he recommended to h old on consult since the patient has severe metabolic abnormality. This morning patient remains confused with no significant improvement therefore we are going to reconsult neurology service. He has elevated hemoglobin and hematocrit, most likely secondary to dehydration, keep following levels till sodium level corrected and then reassess. Abdomen looks soft, patient denies abdominal pain or chest pain. 01/22 Patient was moved to the ICU yesterday because of concerns about inability to protect airway He was able to breathe okay this morning. He remains severely confused He remains on D5W at 150 mL/h, sodium down to 152 today Creatinine back to reference range Repeat CT of the brain is negative Heparin drip was discontinued and patient placed on subcutaneous heparin 01/23 Patient is becoming more encephalopathic, he is nonverbal, does not follow command does not answer questions. This is despite correction of his hyponatremia and other metabolic abnormalities like acute kidney injury. And there is concerned about ability to protect airway so far he does not need intervention but close monitoring in the ICU Today patient underwent lumbar puncture and results Showing RBC is elevated at 28, nucleated cells are 0. Glucose slightly elevated 72 and protein 106. 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 He had EEG initially done which was unremarkable another EEG is requested today, patient was started on IV Keppra 1000 mg Also ABG shows evidence of acute hypoxic hypercapnic respiratory failure, patient was unable to protect his airway and he got intubated today. In the meantime there is no abnormal movement currently. He is afebrile this morning. Last fever was on 01/22 and it was 100 degrees which is low-grade. Labs showing leukocytosis worse 21.7, hemoglobin 18, platelet count is 188. pH 7.1, pCO2 is high at 95. Oxygen with pO2 of 86 while on 15 L. Sodium 137, potassium 3.3. Liver enzymes not significantly elevated. CSF culture permanent results are still pending 01/25 Patient yesterday could not protect his airway and he was intubated and placed on mechanical ventilation. Pulmonary/critical care team following closely and help with vent management. No seizure-like activity or abnormal movements noted. EEG done and reviewed. Neurologist on the case. Patient is currently on IV Keppra 1000 twice daily Also patient started on IV vancomycin and cefepime per ID team recommendation for suspected sepsis. Cultures are pending. Patient has no fever for the last 3 days. Leukocyte count today still mildly elevated at 16 but coming down from 21 yesterday. Electrolytes are improving. Patient remains in critical condition. 01/26 Patient remains in the ICU intubated and on mechanical ventilation He is currently covered with IV vancomycin and cefepime, for suspected pneumonia . Nasal culture growing MRSA and sputum culture growing Klebsiella pneumonia 01/27 Patient remains intubated and on mechanical ventilation without sedation. No abnormal movements noted He is afebrile and blood pressure holding well. WBCs 11. He still somewhat acidotic with pH 7.3 and pCO2 high 61. BMP and liver enzymes were unremarkable. Nasal screen is positive for MRSA sputum Culture is positive for Klebsiella CSF culture from pulmonary suction presumptive MRSA. 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 Also sugar is high rather than low which goes against infection. And also his neck was supple on examined him on admission. I discussed with the staff the CSF sample waited more than 5 hours before it goes to the lab And chest x-ray showing significant pneumonia in the left lower lobe Currently he is on cefepime also on IV Keppra 01/29/2024 Patient is currently in the MICU. Intubated and on mechanical ventilator. Remains on IV hydration with D5 half-normal saline at 75 cc/h. Chest x-ray showed no acute cardiopulmonary process. Otherwise patient did have episodes of bright red blood per rectum and drop in hemoglobin level. He Protonix changed to twice daily and gastroenterology was consulted. Sputum cultures growing Klebsiella pneumoniae and being continued on cefepime. Nasals screen showed MRSA. CSF culture sh Gram stain and owed Staph aureus methicillin-resistant. Laboratory test showed WBC 14.5 hemoglobin 9.6 and platelets 130 sodium 140 potassium 4.0 chloride 109 bicarb is 28 BUN 18 and creatinine 0.32 and blood sugar 121 and calcium 7.6. Albumin 1.9. 01/30/2024 Patient in the MICU intubated and on mechanical ventilator. Mental status remains the same and patient is still encephalopathic. Patient received PRBC transfusion. No active rectal bleeding. Hemoglobin is fairly stable. GI is planning for colonoscopy tomorrow. Chest x-ray showed ongoing small left pleural effusion along with dense retrocardiac/left basilar opacity. Laboratory data showed WBC 17.1 hemoglobin 11.9 and platelets 126 sodium 145 potassium 3.8 chloride 117 bicarb is 29 BUN 20 and creatinine 0.34 and blood sugar 127 and calcium 8.1 and albumin 2.0. Patient remains on antibiotics in the form of cefepime. Sputum cultures growing Klebsiella pneumonia. ID and critical care team on board. 01/31/2024 Patient in the MICU. Intubated and is being continued on mechanical ventilator. Assist-control. ROS sedation is off and patient remains unresponsive to any stimuli. Chest x-ray today showed ongoing dense retrocardiac/left basilar opacity. Patient is scheduled for EGD and colonoscopy tomorrow due to GI bleed. No active bleeding at this time. Laboratory data showed WBC 12.1 hemoglobin 11.6 and platelets 142 sodium 143 potassium 3.5 chloride 117, BUN 22 and creatinine 0.14 blood sugar 116 and calcium 8.3 magnesium 1.6. Patient is being continued on antibiotics cefepime and metronidazole. IV hydration with D5 half-normal saline at 75 cc/h. Current medications reviewed. Objective - Vital Signs Vital signs: Vital Signs Temp 92.7 F L 01/31/24 08:00 Pulse 52 L 01/31/24 09:00 Resp 14 01/31/24 09:00 BP 186/85 01/31/24 03:00 Pulse Ox 99 01/31/24 09:00 FiO2 40 01/31/24 08:30 Intake & Output 01/30/24 01/31/24 01/31/24 18:59 06:59 18:59 Intake Total 1436 1058 634 Output Total 455 450 125 Balance 981 608 509 Weight 84.4 kg Intake: IV 936 1058 434 Cefepime 2 gm In Sodium 100 100 Chloride 0.9% 100 ml @ 25 mls/hr IVPB Q8HR [facility] Rx# :[id number] Dextrose 5%-0.45% NaCl 1, 900 825 225 000 ml @ 75 mls/hr IV . [id number] [facility] Rx#:[id number] a-line 36 33 9 metroNIDAZOLE-NS PMX 500 100 100 mg In Saline 1 100ml.bag @ 100 mls/hr IVPB Q8HR [facility] Rx#:[id number] Intake, IV Titration 500 200 Amount Cefepime 2 gm In Sodium 200 Chloride 0.9% 100 ml @ 25 mls/hr IVPB Q8HR [facility] Rx# :[id number] Magnesium Sulfate-D5w Pmx 100 1 gm In Dextrose/Water 1 100ml.bag @ 100 mls/hr IVPB Q1H [facility] Rx#: [id number] Potassium Chloride 10 meq 200 In Water For Injection 1 100ml.bag @ 100 mls/hr IVPB Q1H [facility] Rx#: [id number] Potassium Chloride 20 meq 100 In Water For Injection 1 100ml.bag @ 50 mls/hr IVPB Q2H [facility] Rx#: [id number] metroNIDAZOLE-NS PMX 500 100 mg In Saline 1 100ml.bag @ 100 mls/hr IVPB Q8HR [facility]I Rx#:[id number] Output: Urine 455 450 125 Other: Voiding Method Indwelling Catheter Indwelling Catheter # Bowel Movements 1 ABP, PAP, CO, CI - Last Documented Arterial Blood Pressure 144/64 - Exam - Exam --GENERAL: The patient is intubated and placed on mechanical ventilation HEENT: Pupils are round and equally reacting to light. EOMI. No scleral icterus. No conjunctival pallor. Normocephalic, atraumatic. No pharyngeal erythema. No thyromegaly. CARDIOVASCULAR: S1 and S2 present. No murmurs, rubs, or gallops. PULMONARY: Chest is clear to auscultation, no wheezing , no crackles. ABDOMEN: Soft, nontender, nondistended, normoactive bowel sounds. No palpable organomegaly. MUSCULOSKELETAL: No joint swelling or deformity. EXTREMITIES: No cyanosis, clubbing, or pedal edema. NEUROLOGICAL: Gross neurological examination did not reveal any focal deficits. SKIN: No rashes. no petechiae. - Labs CBC & Chem 7: 02/02/24 06:14 02/02/24 06:14 Labs: Abnormal Lab Results - Last 24 Hours (Table) 01/30/24 01/30/24 01/31/24 Range/Units 11:46 17:09 04:28 WBC 12.5 H (3.8-10.6) k/uL RBC 3.42 L (4.30-5.90) m/uL Hgb 11.6 L (13.0-17.5) gm/dL Hct 33.3 L (39.0-53.0) % Plt Count 142 L (150-450) k/uL Neutrophils # 9.6 H (1.3-7.7) k/uL ABG pO2 (83-108) mmHg ABG HCO3 (21-25) mmol/L ABG Total CO2 (19-24) mmol/L Hemoglobin (13.0-17.5) gm/dL Chloride (98-107) mmol/L BUN (9-20) mg/dL Creatinine (0.66-1.25) mg/dL Glucose (74-99) mg/dL POC Glucose (mg/dL) 115 H 111 H (70-110) mg/dL Calcium (8.4-10.2) mg/dL 01/31/24 01/31/24 01/31/24 Range/Units 04:28 05:04 05:11 WBC (3.8-10.6) k/uL RBC (4.30-5.90) m/uL Hgb (13.0-17.5) gm/dL Hct (39.0-53.0) % Plt Count (150-450) k/uL Neutrophils # (1.3-7.7) k/uL ABG pO2 76 L (83-108) mmHg ABG HCO3 27 H (21-25) mmol/L ABG Total CO2 28 H (19-24) mmol/L Hemoglobin 11.3 L (13.0-17.5) gm/dL Chloride 117 H (98-107) mmol/L BUN 22 H (9-20) mg/dL Creatinine 0.42 L (0.66-1.25) mg/dL Glucose 116 H (74-99) mg/dL POC Glucose (mg/dL) 120 H (70-110) mg/dL Calcium 8.3 L (8.4-10.2) mg/dL Microbiology - Last 24 Hours (Table) 01/25/24 15:30 Blood Culture - Final Blood Assessment and Plan Assessment: Severe encephalopathy, could be multifactorial. Metabolic/toxic encephalopathy, Also most likely related to infection with pneumonia Acute hypoxic hypercapnic respiratory failure, patient unable to protect airway secondary to above, s/p intubation and mechanical ventilation Acute lower GI bleed. Patient does have bright red blood bowel movements on 01/29/2024. Suspected seizure-like activity on 01/24 x 2 Suspected sepsis. Secondary to pneumonia Hypernatremia. Resolved Non-STEMI with elevated troponin with some EKG changes but patient denies chest pain. Acute kidney injury, improving History of depression, psychosis and suicidal ideation Severe dehydration and hypovolemia History of chronic left leg wound, currently wound is closed, no evidence of cellulitis but mild deformity in the muscles of the left leg Elevated lactic acid improved. Plan: Continue with ICU management Continue vent management as per pulmonary team Continue with cefepime and metronidazole.. Neurology consult in the case. CSF culture result showing s presumptive MRSA, most likely contamination. Patient started on Keppra, repeat EEG Continue with IV hydration D5 normal saline at 75 Patient was started on Protonix IV twice daily. Gastroenterology is on board. Planning for colonoscopy tomorrow. Pulmonary and nephrology team consult Neurology and cardiology team consultation Further recommendations as per clinical course of the patient DVT prophylaxis: heparin GI Prophylaxis: Pepcid Prognosis is guarded Time with Patient: Greater than 30
--- NOTE | 2024-02-02 21:01 | P.PN ---
Subjective Progress Note Date: 02/01/24 This is a pleasant 68 years old male with past medical history of psychosis and multiple admission for suicidal ideation, hypertension, osteoarthritis Patient brought to the emergency room because he was found by his roommate on the floor, hard to wake up. When he came to emergency room he was answering questions but looks like he is continued to be confused Patient currently opens eyes and follows simple commands but not all every command. Also he answers some questions. However he looks confused significantly. He is disoriented to time place and person. He has no insight. But he denies any pain. No headache. No dizziness. Moves arms and legs. No tingling. Patient on admission was tachycardic and tachypneic but afebrile He had mild leukocytosis, high hemoglobin at 25 and sodium 156 and creatinine 1.7. Liver enzymes moderately elevated Lactic acid 4.0 Troponin is elevated 0.09 Urine drug screen is negative Serum alcohol less than 10. CT of the head and neck is negative for acute process for either side Chest x-ray is negative for acute process and I reviewed the chest x-rays and agree EKG showing sinus tachycardia at [address] depression 01/21 Patient remains confused, he open eyes to verbal stimuli, he can tell me his name and then he goes back to sleep No abnormal movement Patient sodium 1 significantly elevated at 155, he was given D5W at 75 mL/h, repeat sodium this morning is still pending Patient looks dehydrated. Adolescent Specialist evaluated the patient for higher troponin which is thought secondary to dehydration however he has some ST depression in the lateral leads, bill sorter recommended heparin drip x 48 hours as well as metoprolol and Lipitor which are ordered. Yesterday I discussed the case with the neurologist on-call, he recommended to h old on consult since the patient has severe metabolic abnormality. This morning patient remains confused with no significant improvement therefore we are going to reconsult neurology service. He has elevated hemoglobin and hematocrit, most likely secondary to dehydration, keep following levels till sodium level corrected and then reassess. Abdomen looks soft, patient denies abdominal pain or chest pain. 01/22 Patient was moved to the ICU yesterday because of concerns about inability to protect airway He was able to breathe okay this morning. He remains severely confused He remains on D5W at 150 mL/h, sodium down to 152 today Creatinine back to reference range Repeat CT of the brain is negative Heparin drip was discontinued and patient placed on subcutaneous heparin 01/23 Patient is becoming more encephalopathic, he is nonverbal, does not follow command does not answer questions. This is despite correction of his hyponatremia and other metabolic abnormalities like acute kidney injury. And there is concerned about ability to protect airway so far he does not need intervention but close monitoring in the ICU Today patient underwent lumbar puncture and results Showing RBC is elevated at 28, nucleated cells are 0. Glucose slightly elevated 72 and protein 106. 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 He had EEG initially done which was unremarkable another EEG is requested today, patient was started on IV Keppra 1000 mg Also ABG shows evidence of acute hypoxic hypercapnic respiratory failure, patient was unable to protect his airway and he got intubated today. In the meantime there is no abnormal movement currently. He is afebrile this morning. Last fever was on 01/22 and it was 100 degrees which is low-grade. Labs showing leukocytosis worse 21.7, hemoglobin 18, platelet count is 188. pH 7.1, pCO2 is high at 95. Oxygen with pO2 of 86 while on 15 L. Sodium 137, potassium 3.3. Liver enzymes not significantly elevated. CSF culture permanent results are still pending 01/25 Patient yesterday could not protect his airway and he was intubated and placed on mechanical ventilation. Pulmonary/critical care team following closely and help with vent management. No seizure-like activity or abnormal movements noted. EEG done and reviewed. Neurologist on the case. Patient is currently on IV Keppra 1000 twice daily Also patient started on IV vancomycin and cefepime per ID team recommendation for suspected sepsis. Cultures are pending. Patient has no fever for the last 3 days. Leukocyte count today still mildly elevated at 16 but coming down from 21 yesterday. Electrolytes are improving. Patient remains in critical condition. 01/26 Patient remains in the ICU intubated and on mechanical ventilation He is currently covered with IV vancomycin and cefepime, for suspected pneumonia . Nasal culture growing MRSA and sputum culture growing Klebsiella pneumonia 01/27 Patient remains intubated and on mechanical ventilation without sedation. No abnormal movements noted He is afebrile and blood pressure holding well. WBCs 11. He still somewhat acidotic with pH 7.3 and pCO2 high 61. BMP and liver enzymes were unremarkable. Nasal screen is positive for MRSA sputum Culture is positive for Klebsiella CSF culture from pulmonary suction presumptive MRSA. However suspicion of MANAGER OF PHOTOGRAPHY infection is very low as CSF sample showing no leukocytes, 0 WBC. Also sugar is high rather than low which goes against infection. And also his neck was supple on examined him on admission. I discussed with the staff the CSF sample waited more than 5 hours before it goes to the lab And chest x-ray showing significant pneumonia in the left lower lobe Currently he is on cefepime also on IV Keppra 01/29/2024 Patient is currently in the MICU. Intubated and on mechanical ventilator. Remains on IV hydration with D5 half-normal saline at 75 cc/h. Chest x-ray showed no acute cardiopulmonary process. Otherwise patient did have episodes of bright red blood per rectum and drop in hemoglobin level. He Protonix changed to twice daily and gastroenterology was consulted. Sputum cultures growing Klebsiella pneumoniae and being continued on cefepime. Nasals screen showed MRSA. CSF culture sh Gram stain and owed Staph aureus methicillin-resistant. Laboratory test showed WBC 14.5 hemoglobin 9.6 and platelets 130 sodium 140 potassium 4.0 chloride 109 bicarb is 28 BUN 18 and creatinine 0.32 and blood sugar 121 and calcium 7.6. Albumin 1.9. 01/30/2024 Patient in the MICU intubated and on mechanical ventilator. Mental status remains the same and patient is still encephalopathic. Patient received PRBC transfusion. No active rectal bleeding. Hemoglobin is fairly stable. GI is planning for colonoscopy tomorrow. Chest x-ray showed ongoing small left pleural effusion along with dense retrocardiac/left basilar opacity. Laboratory data showed WBC 17.1 hemoglobin 11.9 and platelets 126 sodium 145 potassium 3.8 chloride 117 bicarb is 29 BUN 20 and creatinine 0.34 and blood sugar 127 and calcium 8.1 and albumin 2.0. Patient remains on antibiotics in the form of cefepime. Sputum cultures growing Klebsiella pneumonia. ID and critical care team on board. 01/31/2024 Patient in the MICU. Intubated and is being continued on mechanical ventilator. Assist-control. ROS sedation is off and patient remains unresponsive to any stimuli. Chest x-ray today showed ongoing dense retrocardiac/left basilar opacity. Patient is scheduled for EGD and colonoscopy tomorrow due to GI bleed. No active bleeding at this time. Laboratory data showed WBC 12.1 hemoglobin 11.6 and platelets 142 sodium 143 potassium 3.5 chloride 117, BUN 22 and creatinine 0.14 blood sugar 116 and calcium 8.3 magnesium 1.6. Patient is being continued on antibiotics cefepime and metronidazole. IV hydration with D5 half-normal saline at 75 cc/h. 02/01/2024 Patient is a MICU. Intubated and on mechanical ventilator. Blood pressure is stable. Chest x-ray today showed interval development of near complete whiteout with volume loss left hemithorax. Correlate for mucous plugging and collapse. Patient underwent bronchoscopy and BAL suctioning of mucous plug from the left main bronchus. ROS hemoglobin is able. Mentation remains the same and patient is unresponsive to any stimuli. Continued on antibiotics of cefepime and metronidazole. Hemoglobin 10.2 today. Gastroenterology is planning for EGD and colonoscopy today. Laboratory data showed WBC 9.5 hemoglobin 10.2 and platelets 145 sodium 136 potassium 3.3 chloride 113 bicarb is 24 BUN 19 and creatinine 0.42 and blood sugar 97 magnesium 1.7. Current medications reviewed. Objective - Vital Signs Vital signs: Vital Signs Temp 97.4 F L 02/01/24 20:00 Pulse 70 02/01/24 21:00 Resp 15 02/01/24 21:00 BP 145/75 02/01/24 21:00 Pulse Ox 98 02/01/24 21:00 FiO2 40 02/01/24 20:00 Intake & Output 02/01/24 02/01/24 02/02/24 06:59 18:59 06:59 Intake Total 4296 2143 150 Output Total 350 430 120 Balance 3946 1713 30 Weight 92.5 kg Intake: IV 936 2143 150 0.9 @ 10 110 Cefepime 2 gm In Sodium 200 Chloride 0.9% 100 ml @ 25 mls/hr IVPB Q8HR [facility] Rx# :[id number] Dextrose 5%-0.45% NaCl 1, 900 900 150 000 ml @ 75 mls/hr IV . [id number] [facility] Rx#:[id number] Magnesium Sulfate-D5w Pmx 100 1 gm In Dextrose/Water 1 100ml.bag @ 100 mls/hr IVPB ONCE ONE Rx#: [id number] Potassium Chloride 20 meq 200 In Sodium Chloride 0.9% 100 ml @ 55 mls/hr IVPB Q2H [facility] Rx#:[id number] a-line 36 33 metroNIDAZOLE-NS PMX 500 200 mg In Saline 1 100ml.bag @ 100 mls/hr IVPB Q8HR [facility] Rx#:[id number] Oral 3360 Output: Urine 350 430 120 Other: Voiding Method Indwelling Catheter Indwelling Catheter Indwelling Catheter # Bowel Movements 1 1 ABP, PAP, CO, CI - Last Documented Arterial Blood Pressure 121/54 - Exam - Exam --GENERAL: The patient is intubated and placed on mechanical ventilation HEENT: Pupils are round and equally reacting to light. No scleral icterus. No conjunctival pallor. Normocephalic, atraumatic. No pharyngeal erythema. No thyromegaly. CARDIOVASCULAR: S1 and S2 present. No murmurs, rubs, or gallops. PULMONARY: Chest is clear to auscultation, no wheezing , no crackles. ABDOMEN: Soft, nontender, nondistended, normoactive bowel sounds. No palpable organomegaly. MUSCULOSKELETAL: No joint swelling or deformity. EXTREMITIES: No cyanosis, clubbing, or pedal edema. NEUROLOGICAL: Patient remains unresponsive. Gross neurological examination did not reveal any focal deficits. SKIN: No rashes. no petechiae. - Labs CBC & Chem 7: 02/02/24 06:14 02/02/24 06:14 Labs: Abnormal Lab Results - Last 24 Hours (Table) 02/01/24 02/01/24 02/01/24 Range/Units 05:00 05:00 05:06 RBC 3.05 L (4.30-5.90) m/uL Hgb 10.2 L (13.0-17.5) gm/dL Hct 30.0 L (39.0-53.0) % Plt Count 145 L (150-450) k/uL ABG pH 7.47 H (7.35-7.45) ABG HCO3 26 H (21-25) mmol/L ABG Total CO2 27 H (19-24) mmol/L ABG O2 Saturation 97.4 H (94-97) % Hemoglobin 10.1 L (13.0-17.5) gm/dL Sodium 136 L (137-145) mmol/L Potassium 3.3 L (3.5-5.1) mmol/L Chloride 113 H (98-107) mmol/L Creatinine 0.42 L (0.66-1.25) mg/dL Calcium 7.8 L (8.4-10.2) mg/dL Microbiology - Last 24 Hours (Table) 01/24/24 10:35 Acid Fast Bacilli Smear - Preliminary Cerebral Spinal Fluid Acid Fast Bacilli Culture - Preliminary Assessment and Plan Assessment: Severe encephalopathy, could be multifactorial. Metabolic/toxic encephalopathy, Also most likely related to infection with pneumonia Acute hypoxic hypercapnic respiratory failure, patient unable to protect airway secondary to above, s/p intubation and mechanical ventilation Acute lower GI bleed. Patient does have bright red blood bowel movements on 01/29/2024. Suspected seizure-like activity on 01/24 x 2 Suspected sepsis. Secondary to pneumonia Hypernatremia. Resolved Non-STEMI with elevated troponin with some EKG changes but patient denies chest pain. Acute kidney injury, improving History of depression, psychosis and suicidal ideation Severe dehydration and hypovolemia History of chronic left leg wound, currently wound is closed, no evidence of cellulitis but mild deformity in the muscles of the left leg Elevated lactic acid improved. Plan: Continue with ICU management. Patient underwent a bronchoscopy and mucous plug removal from the left main bronchus. Continue vent management as per pulmonary team Continue with cefepime and metronidazole.. CSF culture result showing s presumptive MRSA, most likely contamination. Patient started on Keppra, repeat EEG was done. Neurology is on board. Continue with IV hydration D5 normal saline at 75 Patient will be continued on Protonix IV twice daily. Gastroenterology is on board. Planning for colonoscopy today. Pulmonary and nephrology team consult Neurology and cardiology removal consultation Further recommendations as per clinical course of the patient DVT prophylaxis: heparin GI Prophylaxis: Pepcid Prognosis is guarded Time with Patient: Greater than 30
--- NOTE | 2024-02-02 21:05 | P.PN ---
Subjective Progress Note Date: 02/02/24 This is a pleasant 68 years old male with past medical history of psychosis and multiple admission for suicidal ideation, hypertension, osteoarthritis Patient brought to the emergency room because he was found by his roommate on the floor, hard to wake up. When he came to emergency room he was answering questions but looks like he is continued to be confused Patient currently opens eyes and follows simple commands but not all every command. Also he answers some questions. However he looks confused significantly. He is disoriented to time place and person. He has no insight. But he denies any pain. No headache. No dizziness. Moves arms and legs. No tingling. Patient on admission was tachycardic and tachypneic but afebrile He had mild leukocytosis, high hemoglobin at 25 and sodium 156 and creatinine 1.7. Liver enzymes moderately elevated Lactic acid 4.0 Troponin is elevated 0.09 Urine drug screen is negative Serum alcohol less than 10. CT of the head and neck is negative for acute process for either side Chest x-ray is negative for acute process and I reviewed the chest x-rays and agree EKG showing sinus tachycardia at [address] depression 01/21 Patient remains confused, he open eyes to verbal stimuli, he can tell me his name and then he goes back to sleep No abnormal movement Patient sodium 1 significantly elevated at 155, he was given D5W at 75 mL/h, repeat sodium this morning is still pending Patient looks dehydrated. 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 Yesterday I discussed the case with the neurologist on-call, he recommended to h old on consult since the patient has severe metabolic abnormality. This morning patient remains confused with no significant improvement therefore we are going to reconsult neurology service. He has elevated hemoglobin and hematocrit, most likely secondary to dehydration, keep following levels till sodium level corrected and then reassess. Abdomen looks soft, patient denies abdominal pain or chest pain. 01/22 Patient was moved to the ICU yesterday because of concerns about inability to protect airway He was able to breathe okay this morning. He remains severely confused He remains on D5W at 150 mL/h, sodium down to 152 today Creatinine back to reference range Repeat CT of the brain is negative Heparin drip was discontinued and patient placed on subcutaneous heparin 01/23 Patient is becoming more encephalopathic, he is nonverbal, does not follow command does not answer questions. This is despite correction of his hyponatremia and other metabolic abnormalities like acute kidney injury. And there is concerned about ability to protect airway so far he does not need intervention but close monitoring in the ICU Today patient underwent lumbar puncture and results Showing RBC is elevated at 28, nucleated cells are 0. Glucose slightly elevated 72 and protein 106. 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 He had EEG initially done which was unremarkable another EEG is requested today, patient was started on IV Keppra 1000 mg Also ABG shows evidence of acute hypoxic hypercapnic respiratory failure, patient was unable to protect his airway and he got intubated today. In the meantime there is no abnormal movement currently. He is afebrile this morning. Last fever was on 01/22 and it was 100 degrees which is low-grade. Labs showing leukocytosis worse 21.7, hemoglobin 18, platelet count is 188. pH 7.1, pCO2 is high at 95. Oxygen with pO2 of 86 while on 15 L. Sodium 137, potassium 3.3. Liver enzymes not significantly elevated. CSF culture permanent results are still pending 01/25 Patient yesterday could not protect his airway and he was intubated and placed on mechanical ventilation. Pulmonary/critical care team following closely and help with vent management. No seizure-like activity or abnormal movements noted. EEG done and reviewed. Neurologist on the case. Patient is currently on IV Keppra 1000 twice daily Also patient started on IV vancomycin and cefepime per ID team recommendation for suspected sepsis. Cultures are pending. Patient has no fever for the last 3 days. Leukocyte count today still mildly elevated at 16 but coming down from 21 yesterday. Electrolytes are improving. Patient remains in critical condition. 01/26 Patient remains in the ICU intubated and on mechanical ventilation He is currently covered with IV vancomycin and cefepime, for suspected pneumonia . Nasal culture growing MRSA and sputum culture growing Klebsiella pneumonia 01/27 Patient remains intubated and on mechanical ventilation without sedation. No abnormal movements noted He is afebrile and blood pressure holding well. WBCs 11. He still somewhat acidotic with pH 7.3 and pCO2 high 61. BMP and liver enzymes were unremarkable. Nasal screen is positive for MRSA sputum Culture is positive for Klebsiella CSF culture from pulmonary suction presumptive MRSA. 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 Also sugar is high rather than low which goes against infection. And also his neck was supple on examined him on admission. I discussed with the staff the CSF sample waited more than 5 hours before it goes to the lab And chest x-ray showing significant pneumonia in the left lower lobe Currently he is on cefepime also on IV Keppra 01/29/2024 Patient is currently in the MICU. Intubated and on mechanical ventilator. Remains on IV hydration with D5 half-normal saline at 75 cc/h. Chest x-ray showed no acute cardiopulmonary process. Otherwise patient did have episodes of bright red blood per rectum and drop in hemoglobin level. He Protonix changed to twice daily and gastroenterology was consulted. Sputum cultures growing Klebsiella pneumoniae and being continued on cefepime. Nasals screen showed MRSA. CSF culture sh Gram stain and owed Staph aureus methicillin-resistant. Laboratory test showed WBC 14.5 hemoglobin 9.6 and platelets 130 sodium 140 potassium 4.0 chloride 109 bicarb is 28 BUN 18 and creatinine 0.32 and blood sugar 121 and calcium 7.6. Albumin 1.9. 01/30/2024 Patient in the MICU intubated and on mechanical ventilator. Mental status remains the same and patient is still encephalopathic. Patient received PRBC transfusion. No active rectal bleeding. Hemoglobin is fairly stable. GI is planning for colonoscopy tomorrow. Chest x-ray showed ongoing small left pleural effusion along with dense retrocardiac/left basilar opacity. Laboratory data showed WBC 17.1 hemoglobin 11.9 and platelets 126 sodium 145 potassium 3.8 chloride 117 bicarb is 29 BUN 20 and creatinine 0.34 and blood sugar 127 and calcium 8.1 and albumin 2.0. Patient remains on antibiotics in the form of cefepime. Sputum cultures growing Klebsiella pneumonia. ID and critical care team on board. 01/31/2024 Patient in the MICU. Intubated and is being continued on mechanical ventilator. Assist-control. ROS sedation is off and patient remains unresponsive to any stimuli. Chest x-ray today showed ongoing dense retrocardiac/left basilar opacity. Patient is scheduled for EGD and colonoscopy tomorrow due to GI bleed. No active bleeding at this time. Laboratory data showed WBC 12.1 hemoglobin 11.6 and platelets 142 sodium 143 potassium 3.5 chloride 117, BUN 22 and creatinine 0.14 blood sugar 116 and calcium 8.3 magnesium 1.6. Patient is being continued on antibiotics cefepime and metronidazole. IV hydration with D5 half-normal saline at 75 cc/h. 02/01/2024 Patient is a MICU. Intubated and on mechanical ventilator. Blood pressure is stable. Chest x-ray today showed interval development of near complete whiteout with volume loss left hemithorax. Correlate for mucous plugging and collapse. Patient underwent bronchoscopy and BAL suctioning of mucous plug from the left main bronchus. ROS hemoglobin is able. Mentation remains the same and patient is unresponsive to any stimuli. Continued on antibiotics of cefepime and metronidazole. Hemoglobin 10.2 today. Gastroenterology is planning for EGD and colonoscopy today. Laboratory data showed WBC 9.5 hemoglobin 10.2 and platelets 145 sodium 136 potassium 3.3 chloride 113 bicarb is 24 BUN 19 and creatinine 0.42 and blood sugar 97 magnesium 1.7. 02/02/2024 Patient is in MICU. Mental status remains the same and patient is unresponsive. He does have gag reflex. Chest x-ray this morning showed fairly similar appearance with small to moderate bilateral pleural effusions with adjacent atelectasis and/or consolidation, left greater than right. EGD showed mild distal esophagitis but no evidence of active upper GI bleed. Colonoscopy revealed some wall blood in the left colon and large amount of solid stool that was impacted in the rectum and thin mucosa in the rectum could not be adequately visualized. Possibility of stercoral ulcer in the rectum at the site of fecal impaction could not be excluded. The rest of the colon appeared normal with the scattered sigmoid diverticulosis. Laboratory showed WBC 7.1 hemoglobin 10.1 and platelets 118 sodium 139 potassium 3.3 magnesium 1.6 BUN 14 and creatinine 0.38 Current medications reviewed. Objective - Vital Signs Vital signs: Vital Signs Temp 98.4 F 02/02/24 16:00 Pulse 84 02/02/24 19:00 Resp 14 02/02/24 19:00 BP 145/80 02/02/24 19:00 Pulse Ox 100 02/02/24 19:00 FiO2 40 02/02/24 16:00 Intake & Output 02/02/24 02/02/24 02/03/24 06:59 18:59 06:59 Intake Total 1165 2014 Output Total 432 675 Balance 733 1340 Weight 88.8 kg 88.8 kg Intake: IV 1075 1685 0.9 @ 10 50 110 Cefepime 2 gm In Sodium 100 200 Chloride 0.9% 100 ml @ 25 mls/hr IVPB Q8HR [facility] Rx# :[id number] Dextrose 5%-0.45% NaCl 1, 825 975 000 ml @ 75 mls/hr IV . [id number] [facility] Rx#:[id number] Magnesium Sulfate-D5w Pmx 200 1 gm In Dextrose/Water 1 100ml.bag @ 100 mls/hr IVPB Q1H [facility] Rx#: [id number] metroNIDAZOLE-NS PMX 500 100 200 mg In Saline 1 100ml.bag @ 100 mls/hr IVPB Q8HR [facility] Rx#:[id number] Tube Feeding 60 210 Other 30 120 Output: Urine 432 675 Other: Voiding Method Indwelling Catheter Indwelling Catheter ABP, PAP, CO, CI - Last Documented Arterial Blood Pressure 121/54 - Exam - Exam --GENERAL: The patient is intubated and placed on mechanical ventilation HEENT: Pupils are round and equally reacting to light. No scleral icterus. No conjunctival pallor. Normocephalic, atraumatic. No pharyngeal erythema. No thyromegaly. CARDIOVASCULAR: S1 and S2 present. No murmurs, rubs, or gallops. PULMONARY: Chest is clear to auscultation, no wheezing , no crackles. ABDOMEN: Soft, nontender, nondistended, normoactive bowel sounds. No palpable organomegaly. MUSCULOSKELETAL: No joint swelling or deformity. EXTREMITIES: No cyanosis, clubbing, or pedal edema. NEUROLOGICAL: Patient remains unresponsive. Gross neurological examination did not reveal any focal deficits. SKIN: No rashes. no petechiae. - Labs CBC & Chem 7: 02/02/24 06:14 02/02/24 06:14 Labs: Abnormal Lab Results - Last 24 Hours (Table) 02/02/24 02/02/24 02/02/24 Range/Units 05:48 06:14 06:14 RBC 3.05 L (4.30-5.90) m/uL Hgb 10.1 L (13.0-17.5) gm/dL Hct 31.7 L (39.0-53.0) % MCV 103.8 H D (80.0-100.0) fL Plt Count 118 L (150-450) k/uL ABG pO2 111 H (83-108) mmHg ABG HCO3 26 H (21-25) mmol/L ABG Total CO2 27 H (19-24) mmol/L ABG O2 Saturation 99.0 H (94-97) % Hemoglobin 10.3 L (13.0-17.5) gm/dL Potassium 3.3 L (3.5-5.1) mmol/L Chloride 118 H (98-107) mmol/L Creatinine 0.38 L (0.66-1.25) mg/dL Calcium 7.8 L (8.4-10.2) mg/dL Microbiology - Last 24 Hours (Table) 01/24/24 10:35 Acid Fast Bacilli Smear - Preliminary Cerebral Spinal Fluid Acid Fast Bacilli Culture - Preliminary Assessment and Plan Assessment: Severe encephalopathy, could be multifactorial. Metabolic/toxic encephalopathy, Also most likely related to infection with pneumonia Acute hypoxic hypercapnic respiratory failure, patient unable to protect airway secondary to above, s/p intubation and mechanical ventilation Acute lower GI bleed. Patient does have bright red blood bowel movements on 01/29/2024. Status post EGD and colonoscopy on 02/01/2024. Possible stercoral rectal ulcer suspected. Hemoglobin is fairly stable currently. Suspected seizure-like activity on 01/24 x 2 Sepsis. Secondary to pneumonia Hypernatremia. Resolved Non-STEMI with elevated troponin with some EKG changes but patient denies chest pain. Acute kidney injury, improving History of depression, psychosis and suicidal ideation Severe dehydration and hypovolemia History of chronic left leg wound, currently wound is closed, no evidence of cellulitis but mild deformity in the muscles of the left leg Elevated lactic acid improved. Plan: Continue with ICU management. Patient underwent a bronchoscopy and mucous plug removal from the left main bronchus on 01/31/2024. Continue vent management as per pulmonary team Continue with cefepime and metronidazole.. CSF culture result showing s presumptive MRSA, most likely contamination. Patient started on Keppra, repeat EEG was done. Neurology is on board. Continue with IV hydration D5 normal saline at 75 Patient will be continued on Protonix IV twice daily. Gastroenterology is on board. Status post EGD and colonoscopy on 02/01/2024. Critical care team and ID is on board. DVT prophylaxis: heparin GI Prophylaxis: Pepcid Prognosis is guarded Time with Patient: Greater than 30
[2024-02-02] MEDS: bisacodyL 10 MG SUPP RECTAL SCH (21:19)
[2024-02-02 23:17] LABS: Glucose,Whole Blood 104 mg/dL (70-110)
[2024-02-03] MEDS: POTASSIUM CHLORIDE 20 MEQ in WATER FOR INJECTION 1 100ML.BAG IVPB SCH (00:10)
[2024-02-03 05:19] LABS: ABG Base Excess 2.6 mmol/L; ABG HCO3 27 mmol/L (21-25); ABG Oxygen Saturation 98.2 % (94-97); ABG PCO2 38 mmHg (35-45); ABG PH 7.45 (7.35-7.45); ABG PO2 95 mmHg (83-108); ABG TCO2 28 mmol/L (19-24); Allen Test Performed? Yes
[2024-02-03 05:36] LABS: Glucose,Whole Blood 105 mg/dL (70-110)
[2024-02-03 06:01] LABS: Basophils % (A) 0 %; Eosinophils # (A) 0.1 k/uL (0-0.7); Eosinophils % (A) 1 %; HCT 33.3 % (39.0-53.0); HGB 10.7 gm/dL (13.0-17.5); Hypochromasia Slight; Lymphocytes # (A) 1.1 k/uL (1.0-4.8); Lymphocytes % (A) 15 %; MCH 33.4 pg (25.0-35.0); MCHC 32.3 g/dL (31.0-37.0); MCV 103.6 fL (80.0-100.0); Macrocytosis Moderate; Mean Platelet Volume 9.1; Monocytes # (A) 0.4 k/uL (0-1.0); Monocytes % (A) 5 %; Neutrophils # (A) 5.7 k/uL (1.3-7.7); Neutrophils % (A) 77 %; Platelet Count 174 k/uL (150-450); RBC 3.21 m/uL (4.30-5.90); RDW 15.5 % (11.5-15.5); WBC 7.5 k/uL (3.8-10.6)
[2024-02-03 06:04] LABS: African American GFR (CKD) >90 (>60 ml/min/1.73 sqM); Anion Gap -2 mmol/L; Blood Urea Nitrogen 10 mg/dL (9-20); Calcium 8.2 mg/dL (8.4-10.2); Carbon Dioxide 27 mmol/L (22-30); Chloride 115 mmol/L (98-107); Glucose 110 mg/dL (74-99); Non-African American GFR(CKD) >90 (>60 ml/min/1.73 sqM); Potassium 3.7 mmol/L (3.5-5.1); Sodium 140 mmol/L (137-145)
[2024-02-03] MEDS: POTASSIUM BICARBONATE/CIT AC 20 MEQ TABLET.EFF NG-TUBE SCH ×2 (06:52→15:01)
--- NOTE | 2024-02-03 07:31 | XR ---
EXAMINATION TYPE: XR chest 1V DATE OF EXAM: 02/03/2024 5:43 AM CLINICAL INDICATION: Male, 68 years old with history of mechanical ventilation; [facility] COMPARISON: Chest radiograph from one day prior. TECHNIQUE: XR chest 1V Frontal view of the chest. FINDINGS: Lungs/Pleura: No evidence of focal consolidation or pneumothorax. Blunting of the costophrenic angles is present. Pulmonary vascularity: Unremarkable. Heart/mediastinum: Cardiomediastinal silhouette is unremarkable. Musculoskeletal: No acute osseous pathology. Other findings: None Lines/Tubes: Endotracheal tube with distal tip 3.0 cm above the elizabeth. Nasogastric tube with its distal tip and side-port projecting under the diaphragm. Left-sided PICC with distal tip at the superior vena cava/brachiocephalic confluence. IMPRESSION: Stable support tubes with layering bilateral pleural effusions. [facility], , 02/03/2024 7:29 AM
[2024-02-03] MEDS: PANTOPRAZOLE 40 MG/10 ML VIAL IV SCH (09:12)
[2024-02-03 11:50] LABS: Glucose,Whole Blood 111 mg/dL (70-110)
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
--- NOTE | 2024-02-03 12:12 | P.PN ---
Subjective Progress Note Date: 02/03/24 Patient seen and examined at bedside. Had 2 large bowel movements overnight per nursing staff. Objective - Vital Signs Vital signs: Vital Signs Temp 98.2 F 02/03/24 12:00 Pulse 74 02/03/24 12:00 Resp 14 02/03/24 12:00 BP 120/73 02/03/24 12:00 Pulse Ox 99 02/03/24 12:00 FiO2 30 02/03/24 11:20 Intake & Output 02/02/24 02/03/24 02/03/24 18:59 06:59 18:59 Intake Total 2014 1450 980 Output Total 675 550 265 Balance 1340 900 715 Weight 88.8 kg 89 kg Intake: IV 1685 1060 710 0.9 @ 10 110 110 60 Cefepime 2 gm In Sodium 200 100 100 Chloride 0.9% 100 ml @ 25 mls/hr IVPB Q8HR [facility] Rx# :[id number] Dextrose 5%-0.45% NaCl 1, 975 750 450 000 ml @ 75 mls/hr IV . [id number] [facility]I Rx#:[id number] Magnesium Sulfate-D5w Pmx 200 1 gm In Dextrose/Water 1 100ml.bag @ 100 mls/hr IVPB Q1H [facility] Rx#: [id number] metroNIDAZOLE-NS PMX 500 200 100 100 mg In Saline 1 100ml.bag @ 100 mls/hr IVPB Q8HR FIFI Rx#:[id number] Tube Feeding 210 300 210 Other 120 90 60 Output: Urine 675 550 265 Other: Voiding Method Indwelling Catheter Indwelling Catheter Indwelling Catheter # Bowel Movements 1 ABP, PAP, CO, CI - Last Documented Arterial Blood Pressure 121/54 - Constitutional Constitutional Comment(s): Vented - Respiratory Details: Vented - Gastrointestinal Gastrointestinal Comment(s): Soft, nontender, nondistended, no rebound or guarding - Labs CBC & Chem 7: 02/03/24 05:08 02/03/24 05:08 Labs: Abnormal Lab Results - Last 24 Hours (Table) 02/02/24 02/03/24 02/03/24 Range/Units 22:41 05:08 05:08 RBC 3.21 L (4.30-5.90) m/uL Hgb 10.7 L (13.0-17.5) gm/dL Hct 33.3 L (39.0-53.0) % MCV 103.6 H (80.0-100.0) fL ABG HCO3 (21-25) mmol/L ABG Total CO2 (19-24) mmol/L ABG O2 Saturation (94-97) % Hemoglobin (13.0-17.5) gm/dL Potassium 3.4 L (3.5-5.1) mmol/L Chloride 115 H (98-107) mmol/L Creatinine 0.44 L (0.66-1.25) mg/dL Glucose 110 H (74-99) mg/dL POC Glucose (mg/dL) (70-110) mg/dL Calcium 8.2 L (8.4-10.2) mg/dL 02/03/24 02/03/24 Range/Units 05:14 11:48 RBC (4.30-5.90) m/uL Hgb (13.0-17.5) gm/dL Hct (39.0-53.0) % MCV (80.0-100.0) fL ABG HCO3 27 H (21-25) mmol/L ABG Total CO2 28 H (19-24) mmol/L ABG O2 Saturation 98.2 H (94-97) % Hemoglobin 10.4 L (13.0-17.5) gm/dL Potassium (3.5-5.1) mmol/L Chloride (98-107) mmol/L Creatinine (0.66-1.25) mg/dL Glucose (74-99) mg/dL POC Glucose (mg/dL) 111 H (70-110) mg/dL Calcium (8.4-10.2) mg/dL Assessment and Plan Plan: 68-year-old male with GI bleed that appears to be resolving. Patient had 2 large bowel movements overnight. No plan for disimpaction as patient continues to have significant bowel function with bowel regimen. Continue bowel regimen. Case discussed with nursing staff.
--- NOTE | 2024-02-03 12:59 | OP ---
OPERATIVE REPORT DATE OF SERVICE : PROCEDURE: Removal of the permanent dialysis catheter, left femoral approach. DESCRIPTION OF PROCEDURE: The patient was seen in the intensive care unit. Left groin was prepped and draped in a sterile manner. Stitches were removed from the exit site of the catheter. A small incision was made at the exit site of the catheter. Catheter was removed. Pressure was held. Pressure dressing applied. The patient tolerated the procedure well. The tip of the catheter was sent for culture. MMODL / IJN: [id number] /
--- NOTE | 2024-02-03 13:25 | P.PN ---
Subjective Progress Note Date: 02/03/24 Principal diagnosis: Reason for follow-up is sepsis possible aspiration pneumonia Patient is a 68-year-old male with a past medical history significant for COPD hypertension [place] osteoarthritis patient did have a history of necrotizing infection of the left lower extremity with initial admission to hospital mental status changes subsequently have worsening of his respiratory status requiring intubation and concern for possible aspiration pneumonia.Patient did have a EGD with evidence of esophagitis colonoscopy possibility of stercoral ulcer in the rectum On today's evaluation that is 02/03/2024, the patient continues to be afebrile, the patient is on on the ventilator FiO2 is currently stable at 30% no significant purulent secretion through the ET patient is hemodynamically stable not requiring any pressor support is having bowel movement mentation remains to be an issue. Patient white count is 7.5, creatinine 0.44 Objective - Vital Signs Vital signs: Vital Signs Temp 98.2 F 02/03/24 12:00 Pulse 75 02/03/24 13:00 Resp 14 02/03/24 13:00 BP 139/74 02/03/24 13:00 Pulse Ox 99 02/03/24 13:00 FiO2 30 02/03/24 12:00 Intake & Output 02/02/24 02/03/24 02/03/24 18:59 06:59 18:59 Intake Total 2014 1450 1115 Output Total 675 550 305 Balance 1340 900 810 Weight 88.8 kg 89 kg Intake: IV 1685 1060 795 0.9 @ 10 110 110 70 Cefepime 2 gm In Sodium 200 100 100 Chloride 0.9% 100 ml @ 25 mls/hr IVPB Q8HR [facility] Rx# :[id number] Dextrose 5%-0.45% NaCl 1, 975 750 525 000 ml @ 75 mls/hr IV . [id number] [facility] Rx#:[id number] Magnesium Sulfate-D5w Pmx 200 1 gm In Dextrose/Water 1 100ml.bag @ 100 mls/hr IVPB Q1H [facility] Rx#: [id number] metroNIDAZOLE-NS PMX 500 200 100 100 mg In Saline 1 100ml.bag @ 100 mls/hr IVPB Q8HR [facility]I Rx#:[id number] Tube Feeding 210 300 260 Other 120 90 60 Output: Urine 675 550 305 Other: Voiding Method Indwelling Catheter Indwelling Catheter Indwelling Catheter # Bowel Movements 1 ABP, PAP, CO, CI - Last Documented Arterial Blood Pressure 121/54 - Exam GENERAL DESCRIPTION: An elderly male intubated on the vent RESPIRATORY SYSTEM: Unlabored breathing , decreased breath sounds at bases HEART: S1 S2 regular rate and rhythm , ABDOMEN: Soft , no tenderness EXTREMITIES: No edema feet - Labs CBC & Chem 7: 02/03/24 05:08 02/03/24 11:54 Labs: Abnormal Lab Results - Last 24 Hours (Table) 02/02/24 02/03/24 02/03/24 Range/Units 22:41 05:08 05:08 RBC 3.21 L (4.30-5.90) m/uL Hgb 10.7 L (13.0-17.5) gm/dL Hct 33.3 L (39.0-53.0) % MCV 103.6 H (80.0-100.0) fL ABG HCO3 (21-25) mmol/L ABG Total CO2 (19-24) mmol/L ABG O2 Saturation (94-97) % Hemoglobin (13.0-17.5) gm/dL Potassium 3.4 L (3.5-5.1) mmol/L Chloride 115 H (98-107) mmol/L Creatinine 0.44 L (0.66-1.25) mg/dL Glucose 110 H (74-99) mg/dL POC Glucose (mg/dL) (70-110) mg/dL Calcium 8.2 L (8.4-10.2) mg/dL 02/03/24 02/03/24 Range/Units 05:14 11:48 RBC (4.30-5.90) m/uL Hgb (13.0-17.5) gm/dL Hct (39.0-53.0) % MCV (80.0-100.0) fL ABG HCO3 27 H (21-25) mmol/L ABG Total CO2 28 H (19-24) mmol/L ABG O2 Saturation 98.2 H (94-97) % Hemoglobin 10.4 L (13.0-17.5) gm/dL Potassium (3.5-5.1) mmol/L Chloride (98-107) mmol/L Creatinine (0.66-1.25) mg/dL Glucose (74-99) mg/dL POC Glucose (mg/dL) 111 H (70-110) mg/dL Calcium (8.4-10.2) mg/dL Assessment and Plan (1) Sepsis Current Visit: Yes Status: Acute Code(s): A41.9 - SEPSIS, UNSPECIFIED ORGANISM SNOMED Code(s): 12660803 (2) Aspiration pneumonia Current Visit: Yes Status: Acute Code(s): J69.0 - PNEUMONITIS DUE TO INHALATION OF FOOD AND VOMIT SNOMED Code(s): 819916140 Plan: 1patient with an episode of sepsis in this patient who did have significant evaded white count patient also have mild hypotension and source is likely aspiration pneumonitis and the patient noted to have significant vomiting at the time of intubation with evidence of left basilar infiltrate on the chest x-ray will need to cover for resistant gram-positive as well as gram-negative pathogen 2-penicillin allergy limit number of antibiotics safe to use 3-blood cultures has been negative and sputum cultures are currently growing Klebsiella, patient CSF culture growing presumptive MRSA however CSF white count was 0 and glucose was normal at 72 more likely representing contamination rather than true infection 4patient remains to be afebrile white count has normalized 5-we will switch cefepime to Rocephin continue the Flagyl and monitor clinical course closely Dictation was produced using [employer] dictation software. please excuse any grammatical, word or spelling errors. Time with Patient: Less than 30
[2024-02-03 17:10] LABS: Glucose,Whole Blood 129 mg/dL (70-110)
--- NOTE | 2024-02-03 18:29 | P.PN ---
Subjective This is a pleasant 68 years old male with past medical history of psychosis and multiple admission for suicidal ideation, hypertension, osteoarthritis Patient brought to the emergency room because he was found by his roommate on the floor, hard to wake up. When he came to emergency room he was answering questions but looks like he is continued to be confused Patient currently opens eyes and follows simple commands but not all every command. Also he answers some questions. However he looks confused significantly. He is disoriented to time place and person. He has no insight. But he denies any pain. No headache. No dizziness. Moves arms and legs. No tingling. Patient on admission was tachycardic and tachypneic but afebrile He had mild leukocytosis, high hemoglobin at 25 and sodium 156 and creatinine 1.7. Liver enzymes moderately elevated Lactic acid 4.0 Troponin is elevated 0.09 Urine drug screen is negative Serum alcohol less than 10. CT of the head and neck is negative for acute process for either side Chest x-ray is negative for acute process and I reviewed the chest x-rays and agree EKG showing sinus tachycardia at [address] depression 01/21 Patient remains confused, he open eyes to verbal stimuli, he can tell me his name and then he goes back to sleep No abnormal movement Patient sodium 1 significantly elevated at 155, he was given D5W at 75 mL/h, repeat sodium this morning is still pending Patient looks dehydrated. Jewel Setter evaluated the patient for higher troponin which is thought secon torsten to dehydration however he has some ST depression in the lateral leads, loan originator recommended heparin drip x 48 hours as well as metoprolol and Lipitor which are ordered. Yesterday I discussed the case with the neurologist on-call, he recommended to hold on consult since the patient has severe metabolic abnormality. This morning patient remains confused with no significant improvement therefore we are going to reconsult neurology service. He has elevated hemoglobin and hematocrit, most likely secondary to dehydration, keep following levels till sodium level corrected and then reassess. Abdomen looks soft, patient denies abdominal pain or chest pain. 01/22 Patient was moved to the ICU yesterday because of concerns about inability to protect airway He was able to breathe okay this morning. He remains severely confused He remains on D5W at 150 mL/h, sodium down to 152 today Creatinine back to reference range Repeat CT of the brain is negative Heparin drip was discontinued and patient placed on subcutaneous heparin 01/23 Patient is becoming more encephalopathic, he is nonverbal, does not follow command does not answer questions. This is despite correction of his hyponatremia and other metabolic abnormalities like acute kidney injury. And there is concerned about ability to protect airway so far he does not need intervention but close monitoring in the ICU Today patient underwent lumbar puncture and results Showing RBC is elevated at 28, nucleated cells are 0. Glucose slightly elevated 72 and protein 106. Cultures pending Also patient has low-grade fever and is Amandeep concentrated sample of CBC improved except for WBC remains elevated about 15.1 K, neurology service recommended to consider ID team, Patient is also history of suicidal ideation however his urine drug screen on admission showed only marijuana Prognosis remains guarded 01/24 Patient multiple drum sander desaturated down to 70s associated with brief period of rigidness and shakiness and his eyes were wide open, this episode happened twice and lasted for short time seconds to minutes. He had EEG initially done which was unremarkable another EEG is requested today, patient was started on IV Keppra 1000 mg Also ABG shows evidence of acute hypoxic hypercapnic respiratory failure, patient was unable to protect his airway and he got intubated today. In the meantime there is no abnormal movement currently. He is afebrile this morning. Last fever was on 01/22 and it was 100 degrees which is low-grade. Labs showing leukocytosis worse 21.7, hemoglobin 18, platelet count is 188. pH 7.1, pCO2 is high at 95. Oxygen with pO2 of 86 while on 15 L. Sodium 137, potassium 3.3. Liver enzymes not significantly elevated. CSF culture permanent results are still pending 01/25 Patient yesterday could not protect his airway and he was intubated and placed on mechanical ventilation. Pulmonary/critical care team following closely and help with vent management. No seizure-like activity or abnormal movements noted. EEG done and reviewed. Neurologist on the case. Patient is currently on IV Keppra 1000 twice daily Also patient started on IV vancomycin and cefepime per ID team recommendation for suspected sepsis. Cultures are pending. Patient has no fever for the last 3 days. Leukocyte count today still mildly elevated at 16 but coming down from 21 yesterday. Electrolytes are improving. Patient remains in critical condition. 01/26 Patient remains in the ICU intubated and on mechanical ventilation He is currently covered with IV vancomycin and cefepime, for suspected pneumonia. Nasal culture growing MRSA and sputum culture growing Klebsiella pneumonia 01/27 Patient remains intubated and on mechanical ventilation without sedation. No abnormal movements noted He is afebrile and blood pressure holding well. WBCs 11. He still somewhat acidotic with pH 7.3 and pCO2 high 61. BMP and liver enzymes were unremarkable. Nasal screen is positive for MRSA sputum Culture is positive for Klebsiella CSF culture from pulmonary suction presumptive MRSA. However suspicion of LABELING SPECIALIST infection is very low as CSF sample showing no leukocytes, 0 WBC. Also sugar is high rather than low which goes against infection. And also his neck was supple on examined him on admission. I discussed with the staff the CSF sample waited more than 5 hours before it goes to the lab And chest x-ray showing significant pneumonia in the left lower lobe Currently he is on cefepime also on IV Keppra 02/02 I am assuming the care of the patient today. He remains in the ICU intubated and with no much improvement in his encephalopathy The exact cause of his encephalopathy is unknown. Pulmonary team on the case. Patient may benefit from tracheostomy and PEG tube replacement. Pending legal guardianship determination on Monday He keeps covered with antibiotic currently with ceftriaxone and Flagyl Surgery team were following the case for recent GI bleed. Currently looks stable Objective - Vital Signs Vital signs: Vital Signs Temp 98.2 F 02/03/24 12:00 Pulse 74 02/03/24 12:00 Resp 14 02/03/24 12:00 BP 120/73 02/03/24 12:00 Pulse Ox 99 02/03/24 12:00 FiO2 30 02/03/24 11:20 Intake & Output 02/02/24 02/03/24 02/03/24 18:59 06:59 18:59 Intake Total 2014 1450 980 Output Total 675 550 265 Balance 1340 900 715 Weight 88.8 kg 89 kg Intake: IV 1685 1060 710 0.9 @ 10 110 110 60 Cefepime 2 gm In Sodium 200 100 100 Chloride 0.9% 100 ml @ 25 mls/hr IVPB Q8HR [facility] Rx# :[id number] Dextrose 5%-0.45% NaCl 1, 975 750 450 000 ml @ 75 mls/hr IV . [id number] [facility] Rx#:[id number] Magnesium Sulfate-D5w Pmx 200 1 gm In Dextrose/Water 1 100ml.bag @ 100 mls/hr IVPB Q1H [facility] Rx#: [id number] metroNIDAZOLE-NS PMX 500 200 100 100 mg In Saline 1 100ml.bag @ 100 mls/hr IVPB Q8HR FIFI Rx#:[id number] Tube Feeding 210 300 210 Other 120 90 60 Output: Urine 675 550 265 Other: Voiding Method Indwelling Catheter Indwelling Catheter Indwelling Catheter # Bowel Movements 1 ABP, PAP, CO, CI - Last Documented Arterial Blood Pressure 121/54 - Exam --GENERAL: The patient is intubated and placed on mechanical ventilation HEENT: Pupils are round and equally reacting to light. EOMI. No scleral icterus. No conjunctival pallor. Normocephalic, atraumatic. No pharyngeal erythema. No thyromegaly. CARDIOVASCULAR: S1 and S2 present. No murmurs, rubs, or gallops. PULMONARY: Chest is clear to auscultation, no wheezing , no crackles. ABDOMEN: Soft, nontender, nondistended, normoactive bowel sounds. No palpable organomegaly. MUSCULOSKELETAL: No joint swelling or deformity. EXTREMITIES: No cyanosis, clubbing, or pedal edema. NEUROLOGICAL: Gross neurological examination did not reveal any focal deficits. SKIN: No rashes. no petechiae. - Labs CBC & Chem 7: 02/03/24 05:08 02/03/24 11:54 Labs: Abnormal Lab Results - Last 24 Hours (Table) 02/02/24 02/03/24 02/03/24 Range/Units 22:41 05:08 05:08 RBC 3.21 L (4.30-5.90) m/uL Hgb 10.7 L (13.0-17.5) gm/dL Hct 33.3 L (39.0-53.0) % MCV 103.6 H (80.0-100.0) fL ABG HCO3 (21-25) mmol/L ABG Total CO2 (19-24) mmol/L ABG O2 Saturation (94-97) % Hemoglobin (13.0-17.5) gm/dL Potassium 3.4 L (3.5-5.1) mmol/L Chloride 115 H (98-107) mmol/L Creatinine 0.44 L (0.66-1.25) mg/dL Glucose 110 H (74-99) mg/dL POC Glucose (mg/dL) (70-110) mg/dL Calcium 8.2 L (8.4-10.2) mg/dL 02/03/24 02/03/24 Range/Units 05:14 11:48 RBC (4.30-5.90) m/uL Hgb (13.0-17.5) gm/dL Hct (39.0-53.0) % MCV (80.0-100.0) fL ABG HCO3 27 H (21-25) mmol/L ABG Total CO2 28 H (19-24) mmol/L ABG O2 Saturation 98.2 H (94-97) % Hemoglobin 10.4 L (13.0-17.5) gm/dL Potassium (3.5-5.1) mmol/L Chloride (98-107) mmol/L Creatinine (0.66-1.25) mg/dL Glucose (74-99) mg/dL POC Glucose (mg/dL) 111 H (70-110) mg/dL Calcium (8.4-10.2) mg/dL Assessment and Plan Assessment: Severe encephalopathy, could be multifactorial. Metabolic/toxic encephalopathy contributing, however no specified cause was found for his encephalopathy Acute hypoxic hypercapnic respiratory failure, patient unable to protect airway secondary to above, s/p intubation and mechanical ventilation Suspected seizure-like activity on 01/24 x 2 Suspected sepsis. Secondary to pneumonia Acute GI bleed, improved Hypernatremia. Resolved Non-STEMI with elevated troponin with some EKG changes but patient denies chest pain. Acute kidney injury, improving History of depression, psychosis and suicidal ideation Severe dehydration and hypovolemia History of chronic left leg wound, currently wound is closed, no evidence of cellulitis but mild deformity in the muscles of the left leg Elevated lactic acid Plan: Continue with ICU management Continue vent management as per pulmonary team Started on ceftriaxone and Flagyl. ID team on the case. CSF culture growing presumptive MRSA however WBC and glucose is normal 72 which goes against infection. Most likely contamination Neurology consult in the case. Patient started on Keppra, repeat EEG Continue with IV hydration D5 half- normal saline at 75 Pulmonary and nephrology team consult cardiology team consultation Labs and medication were reviewed.. Continue same treatment. Continue with symptomatic treatment. Resume home medication. Monitor labs and vitals. DVT and GI prophylaxis. Further recommendations as per clinical course of the smith ent DVT prophylaxis: heparin GI Prophylaxis: Pepcid Prognosis is guarded
[2024-02-03] MEDS ORDERED: bisacodyL 10 MG SUPP RECTAL SCH (21:00)
[2024-02-03 23:12] LABS: Glucose,Whole Blood 115 mg/dL (70-110)
[2024-02-04 04:53] LABS: Basophils % (A) 0 %; Eosinophils # (A) 0.2 k/uL (0-0.7); Eosinophils % (A) 2 %; HGB 10.2 gm/dL (13.0-17.5); Hypochromasia Slight; Lymphocytes # (A) 0.8 k/uL (1.0-4.8); Lymphocytes % (A) 10 %; MCH 33.8 pg (25.0-35.0); MCV 102.5 fL (80.0-100.0); Macrocytosis Moderate; Mean Platelet Volume 8.8; Monocytes # (A) 0.3 k/uL (0-1.0); Monocytes % (A) 4 %; Neutrophils % (A) 83 %; Platelet Count 161 k/uL (150-450); RBC 3.02 m/uL (4.30-5.90); WBC 8.4 k/uL (3.8-10.6)
[2024-02-04 05:02] LABS: African American GFR (CKD) >90 (>60 ml/min/1.73 sqM); Anion Gap -3 mmol/L; Blood Urea Nitrogen 8 mg/dL (9-20); Calcium 8.1 mg/dL (8.4-10.2); Carbon Dioxide 29 mmol/L (22-30); Chloride 114 mmol/L (98-107); Glucose 125 mg/dL (74-99); Non-African American GFR(CKD) >90 (>60 ml/min/1.73 sqM); Potassium 3.7 mmol/L (3.5-5.1); Sodium 140 mmol/L (137-145)
[2024-02-04 05:30] LABS: Glucose,Whole Blood 121 mg/dL (70-110)
[2024-02-04 05:35] LABS: Allen Test Performed? Yes
[2024-02-04 05:36] LABS: ABG Base Excess 4.2 mmol/L; ABG HCO3 29 mmol/L (21-25); ABG Oxygen Saturation 98.3 % (94-97); ABG PCO2 43 mmHg (35-45); ABG PH 7.44 (7.35-7.45); ABG PO2 96 mmHg (83-108); ABG TCO2 30 mmol/L (19-24)
[2024-02-04] MEDS: POTASSIUM BICARBONATE/CIT AC 20 MEQ TABLET.EFF NG-TUBE SCH (05:42)
--- NOTE | 2024-02-04 07:31 | XR ---
EXAMINATION TYPE: XR chest 1V portable DATE OF EXAM: 02/04/2024 Comparison: 02/03/2024 Clinical History: 68 year-old male tube placement Findings: ETT and NG tubes satisfactory. Left subclavian CVC tip cavoatrial junction. Heart upper limits of nor mal size. Ongoing hazy focal bibasilar opacities. Impression: Ongoing [id number] bilateral pleural effusions with adjacent atelectasis and/or consolidation. Semiupright exam. [facility], , 02/04/2024 7:29 AM
--- NOTE | 2024-02-04 09:58 | P.PN ---
Subjective Progress Note Date: 02/04/24 Patient seen and examined at bedside. No acute events. Had 3 liquid bowel movements yesterday Objective - Vital Signs Vital signs: Vital Signs Temp 97.7 F 02/04/24 04:00 Pulse 71 02/04/24 07:00 Resp 14 02/04/24 07:00 BP 157/93 02/04/24 07:00 Pulse Ox 100 02/04/24 07:00 FiO2 30 02/04/24 07:44 Intake & Output 02/03/24 02/04/24 02/04/24 18:59 06:59 18:59 Intake Total 2155 1685 322 Output Total 535 415 70 Balance 1620 1270 252 Weight 96.3 kg Intake: IV 1505 935 170 0.9 @ 10 130 110 20 Cefepime 2 gm In Sodium 200 Chloride 0.9% 100 ml @ 25 mls/hr IVPB Q8HR [facility] Rx# :[id number] Dextrose 5%-0.45% NaCl 1, 975 825 150 000 ml @ 75 mls/hr IV . [id number] FIFI Rx#:[id number] metroNIDAZOLE-NS PMX 500 200 mg In Saline 1 100ml.bag @ 100 mls/hr IVPB Q8HR FIFI Rx#:[id number] Tube Feeding 560 660 122 Other 90 90 30 Output: Urine 535 415 70 Other: Voiding Method Indwelling Catheter Indwelling Catheter # Bowel Movements 1 1 ABP, PAP, CO, CI - Last Documented Arterial Blood Pressure 121/54 - Constitutional General appearance: Present: no acute distress - Respiratory Details: No difficulty with respiration - Gastrointestinal Gastrointestinal Comment(s): Soft, nontender, nondistended, no rebound, no guarding - Labs CBC & Chem 7: 02/04/24 04:45 02/04/24 04:45 Labs: Abnormal Lab Results - Last 24 Hours (Table) 02/03/24 02/03/24 02/03/24 Range/Units 11:48 17:09 23:10 RBC (4.30-5.90) m/uL Hgb (13.0-17.5) gm/dL Hct (39.0-53.0) % MCV (80.0-100.0) fL RDW (11.5-15.5) % Lymphocytes # (1.0-4.8) k/uL ABG HCO3 (21-25) mmol/L ABG Total CO2 (19-24) mmol/L ABG O2 Saturation (94-97) % Hemoglobin (13.0-17.5) gm/dL Chloride (98-107) mmol/L BUN (9-20) mg/dL Creatinine (0.66-1.25) mg/dL Glucose (74-99) mg/dL POC Glucose (mg/dL) 111 H 129 H 115 H (70-110) mg/dL Calcium (8.4-10.2) mg/dL 02/04/24 02/04/24 02/04/24 Range/Units 04:45 04:45 05:29 RBC 3.02 L (4.30-5.90) m/uL Hgb 10.2 L (13.0-17.5) gm/dL Hct 31.0 L (39.0-53.0) % MCV 102.5 H (80.0-100.0) fL RDW 16.0 H (11.5-15.5) % Lymphocytes # 0.8 L (1.0-4.8) k/uL ABG HCO3 (21-25) mmol/L ABG Total CO2 (19-24) mmol/L ABG O2 Saturation (94-97) % Hemoglobin (13.0-17.5) gm/dL Chloride 114 H (98-107) mmol/L BUN 8 L (9-20) mg/dL Creatinine 0.36 L (0.66-1.25) mg/dL Glucose 125 H (74-99) mg/dL POC Glucose (mg/dL) 121 H (70-110) mg/dL Calcium 8.1 L (8.4-10.2) mg/dL 02/04/24 Range/Units 05:32 RBC (4.30-5.90) m/uL Hgb (13.0-17.5) gm/dL Hct (39.0-53.0) % MCV (80.0-100.0) fL RDW (11.5-15.5) % Lymphocytes # (1.0-4.8) k/uL ABG HCO3 29 H (21-25) mmol/L ABG Total CO2 30 H (19-24) mmol/L ABG O2 Saturation 98.3 H (94-97) % Hemoglobin 10.6 L (13.0-17.5) gm/dL Chloride (98-107) mmol/L BUN (9-20) mg/dL Creatinine (0.66-1.25) mg/dL Glucose (74-99) mg/dL POC Glucose (mg/dL) (70-110) mg/dL Calcium (8.4-10.2) mg/dL Assessment and Plan Plan: 68-year-old male with GI bleed that appears to be resolving. Patient had 3 liquid bowel movements yesterday according to nursing staff. No plan for disimpaction as patient continues to have significant bowel function with bowel regimen. Patient has now had 5 bowel movements over the past 48 hours. Will discontinue lactulose and continue with Dulcolax suppository. Case discussed with nursing staff.
--- NOTE | 2024-02-04 11:12 | P.PN ---
Subjective This is a pleasant 68 years old male with past medical history of psychosis and multiple admission for suicidal ideation, hypertension, osteoarthritis Patient brought to the emergency room because he was found by his roommate on the floor, hard to wake up. When he came to emergency room he was answering questions but looks like he is continued to be confused Patient currently opens eyes and follows simple commands but not all every command. Also he answers some questions. However he looks confused significantly. He is disoriented to time place and person. He has no insight. But he denies any pain. No headache. No dizziness. Moves arms and legs. No tingling. Patient on admission was tachycardic and tachypneic but afebrile He had mild leukocytosis, high hemoglobin at 25 and sodium 156 and creatinine 1.7. Liver enzymes moderately elevated Lactic acid 4.0 Troponin is elevated 0.09 Urine drug screen is negative Serum alcohol less than 10. CT of the head and neck is negative for acute process for either side Chest x-ray is negative for acute process and I reviewed the chest x-rays and agree EKG showing sinus tachycardia at [address] depression 01/21 Patient remains confused, he open eyes to verbal stimuli, he can tell me his name and then he goes back to sleep No abnormal movement Patient sodium 1 significantly elevated at 155, he was given D5W at 75 mL/h, repeat sodium this morning is still pending Patient looks dehydrated. Grain Unloader evaluated the patient for higher troponin which is thought secon torsten to dehydration however he has some ST depression in the lateral leads, systems support engineer recommended heparin drip x 48 hours as well as metoprolol and Lipitor which are ordered. Yesterday I discussed the case with the neurologist on-call, he recommended to hold on consult since the patient has severe metabolic abnormality. This morning patient remains confused with no significant improvement therefore we are going to reconsult neurology service. He has elevated hemoglobin and hematocrit, most likely secondary to dehydration, keep following levels till sodium level corrected and then reassess. Abdomen looks soft, patient denies abdominal pain or chest pain. 01/22 Patient was moved to the ICU yesterday because of concerns about inability to protect airway He was able to breathe okay this morning. He remains severely confused He remains on D5W at 150 mL/h, sodium down to 152 today Creatinine back to reference range Repeat CT of the brain is negative Heparin drip was discontinued and patient placed on subcutaneous heparin 01/23 Patient is becoming more encephalopathic, he is nonverbal, does not follow command does not answer questions. This is despite correction of his hyponatremia and other metabolic abnormalities like acute kidney injury. And there is concerned about ability to protect airway so far he does not need intervention but close monitoring in the ICU Today patient underwent lumbar puncture and results Showing RBC is elevated at 28, nucleated cells are 0. Glucose slightly elevated 72 and protein 106. 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 He had EEG initially done which was unremarkable another EEG is requested today, patient was started on IV Keppra 1000 mg Also ABG shows evidence of acute hypoxic hypercapnic respiratory failure, patient was unable to protect his airway and he got intubated today. In the meantime there is no abnormal movement currently. He is afebrile this morning. Last fever was on 01/22 and it was 100 degrees which is low-grade. Labs showing leukocytosis worse 21.7, hemoglobin 18, platelet count is 188. pH 7.1, pCO2 is high at 95. Oxygen with pO2 of 86 while on 15 L. Sodium 137, potassium 3.3. Liver enzymes not significantly elevated. CSF culture permanent results are still pending 01/25 Patient yesterday could not protect his airway and he was intubated and placed on mechanical ventilation. Pulmonary/critical care team following closely and help with vent management. No seizure-like activity or abnormal movements noted. EEG done and reviewed. Neurologist on the case. Patient is currently on IV Keppra 1000 twice daily Also patient started on IV vancomycin and cefepime per ID team recommendation for suspected sepsis. Cultures are pending. Patient has no fever for the last 3 days. Leukocyte count today still mildly elevated at 16 but coming down from 21 yesterday. Electrolytes are improving. Patient remains in critical condition. 01/26 Patient remains in the ICU intubated and on mechanical ventilation He is currently covered with IV vancomycin and cefepime, for suspected pneumonia. Nasal culture growing MRSA and sputum culture growing Klebsiella pneumonia 01/27 Patient remains intubated and on mechanical ventilation without sedation. No abnormal movements noted He is afebrile and blood pressure holding well. WBCs 11. He still somewhat acidotic with pH 7.3 and pCO2 high 61. BMP and liver enzymes were unremarkable. Nasal screen is positive for MRSA sputum Culture is positive for Klebsiella CSF culture from pulmonary suction presumptive MRSA. However suspicion of SULFONATOR OPERATOR infection is very low as CSF sample showing no leukocytes, 0 WBC. Also sugar is high rather than low which goes against infection. And also his neck was supple on examined him on admission. I discussed with the staff the CSF sample waited more than 5 hours before it goes to the lab And chest x-ray showing significant pneumonia in the left lower lobe Currently he is on cefepime also on IV Keppra 02/02 I am assuming the care of the patient today. He remains in the ICU intubated and with no much improvement in his encephalopathy The exact cause of his encephalopathy is unknown. Pulmonary team on the case. Patient may benefit from tracheostomy and PEG tube replacement. Pending legal guardianship determination on Monday He keeps covered with antibiotic currently with ceftriaxone and Flagyl Surgery team were following the case for recent GI bleed. Currently looks stable 02/03 Patient on mechanical ventilation, is currently intubated. Still severely encephalopathic Afebrile and vital stable No leukocytosis and hemoglobin 10.2. BMP is unremarkable. Patient will be evaluated for tracheostomy and PEG tube placement after legal guardianship determination Objective - Vital Signs Vital signs: Vital Signs Temp 97.7 F 02/04/24 04:00 Pulse 78 02/04/24 10:00 Resp 15 02/04/24 10:00 BP 158/90 02/04/24 10:00 Pulse Ox 98 02/04/24 10:00 FiO2 30 02/04/24 08:00 Intake & Output 02/03/24 02/04/24 02/04/24 18:59 06:59 18:59 Intake Total 2155 1685 714 Output Total 535 415 130 Balance 1620 1270 584 Weight 96.3 kg Intake: IV 1505 935 440 0.9 @ 10 130 110 40 Cefepime 2 gm In Sodium 200 Chloride 0.9% 100 ml @ 25 mls/hr IVPB Q8HR [facility] Rx# :[id number] Dextrose 5%-0.45% NaCl 1, 975 825 300 000 ml @ 75 mls/hr IV . [id number] [facility] Rx#:[id number] metroNIDAZOLE-NS PMX 500 200 100 mg In Saline 1 100ml.bag @ 100 mls/hr IVPB Q8HR [facility] Rx#:[id number] Tube Feeding 560 660 244 Other 90 90 30 Output: Urine 535 415 130 Other: Voiding Method Indwelling Catheter Indwelling Catheter Indwelling Catheter # Bowel Movements 1 1 ABP, PAP, CO, CI - Last Documented Arterial Blood Pressure 121/54 - Exam --GENERAL: The patient is intubated and placed on mechanical ventilation HEENT: Pupils are round and equally reacting to light. EOMI. No scleral icterus. No conjunctival pallor. Normocephalic, atraumatic. No pharyngeal erythema. No thyromegaly. CARDIOVASCULAR: S1 and S2 present. No murmurs, rubs, or gallops. PULMONARY: Chest is clear to auscultation, no wheezing , no crackles. ABDOMEN: Soft, nontender, nondistended, normoactive bowel sounds. No palpable organomegaly. MUSCULOSKELETAL: No joint swelling or deformity. EXTREMITIES: No cyanosis, clubbing, or pedal edema. NEUROLOGICAL: Gross neurological examination did not reveal any focal deficits. SKIN: No rashes. no petechiae. - Labs CBC & Chem 7: 02/04/24 04:45 02/04/24 04:45 Labs: Abnormal Lab Results - Last 24 Hours (Table) 02/03/24 02/03/24 02/03/24 Range/Units 11:48 17:09 23:10 RBC (4.30-5.90) m/uL Hgb (13.0-17.5) gm/dL Hct (39.0-53.0) % MCV (80.0-100.0) fL RDW (11.5-15.5) % Lymphocytes # (1.0-4.8) k/uL ABG HCO3 (21-25) mmol/L ABG Total CO2 (19-24) mmol/L ABG O2 Saturation (94-97) % Hemoglobin (13.0-17.5) gm/dL Chloride (98-107) mmol/L BUN (9-20) mg/dL Creatinine (0.66-1.25) mg/dL Glucose (74-99) mg/dL POC Glucose (mg/dL) 111 H 129 H 115 H (70-110) mg/dL Calcium (8.4-10.2) mg/dL 02/04/24 02/04/24 02/04/24 Range/Units 04:45 04:45 05:29 RBC 3.02 L (4.30-5.90) m/uL Hgb 10.2 L (13.0-17.5) gm/dL Hct 31.0 L (39.0-53.0) % MCV 102.5 H (80.0-100.0) fL RDW 16.0 H (11.5-15.5) % Lymphocytes # 0.8 L (1.0-4.8) k/uL ABG HCO3 (21-25) mmol/L ABG Total CO2 (19-24) mmol/L ABG O2 Saturation (94-97) % Hemoglobin (13.0-17.5) gm/dL Chloride 114 H (98-107) mmol/L BUN 8 L (9-20) mg/dL Creatinine 0.36 L (0.66-1.25) mg/dL Glucose 125 H (74-99) mg/dL POC Glucose (mg/dL) 121 H (70-110) mg/dL Calcium 8.1 L (8.4-10.2) mg/dL 02/04/24 Range/Units 05:32 RBC (4.30-5.90) m/uL Hgb (13.0-17.5) gm/dL Hct (39.0-53.0) % MCV (80.0-100.0) fL RDW (11.5-15.5) % Lymphocytes # (1.0-4.8) k/uL ABG HCO3 29 H (21-25) mmol/L ABG Total CO2 30 H (19-24) mmol/L ABG O2 Saturation 98.3 H (94-97) % Hemoglobin 10.6 L (13.0-17.5) gm/dL Chloride (98-107) mmol/L BUN (9-20) mg/dL Creatinine (0.66-1.25) mg/dL Glucose (74-99) mg/dL POC Glucose (mg/dL) (70-110) mg/dL Calcium (8.4-10.2) mg/dL Assessment and Plan Assessment: Severe encephalopathy, could be multifactorial. Metabolic/toxic encephalopathy contributing, however no specified cause was found for his encephalopathy Acute hypoxic hypercapnic respiratory failure, patient unable to protect airway secondary to above, s/p intubation and mechanical ventilation Suspected seizure-like activity on 01/24 x 2 Suspected sepsis. Secondary to pneumonia Acute GI bleed, improved Hypernatremia. Resolved Non-STEMI with elevated troponin with some EKG changes but patient denies chest pain. Acute kidney injury, improving History of depression, psychosis and suicidal ideation Severe dehydration and hypovolemia History of chronic left leg wound, currently wound is closed, no evidence of cellulitis but mild deformity in the muscles of the left leg Elevated lactic acid Plan: Continue with ICU management Continue vent management as per pulmonary team Started on ceftriaxone and Flagyl. ID team on the case. CSF culture growing presumptive MRSA however WBC and glucose is normal 72 which goes against infection. Most likely contamination Neurology consult in the case. Patient started on Keppra, repeat EEG Continue with IV hydration D5 half- normal saline at 75 Pulmonary and nephrology team consult cardiology team consultation Labs and medication were reviewed.. Continue same treatment. Continue with symptomatic treatment. Resume home medication. Monitor labs and vitals. DVT and GI prophylaxis. Further recommendations as per clinical course of the patient DVT prophylaxis: heparin GI Prophylaxis: Pepcid Prognosis is guarded
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
[2024-02-04 12:30] LABS: Glucose,Whole Blood 117 mg/dL (70-110)
[2024-02-04] MEDS: FUROSEMIDE 10 MG/ML 2 ML VIAL IV SCH (13:46)
--- NOTE | 2024-02-04 15:36 | P.PN ---
Subjective Progress Note Date: 02/04/24 Principal diagnosis: Reason for follow-up is sepsis possible aspiration pneumonia Patient is a 68-year-old male with a past medical history significant for COPD hypertension AR osteoarthritis patient did have a history of necrotizing infection of the left lower extremity with initial admission to hospital mental status changes subsequently have worsening of his respiratory status requiring intubation and concern for possible aspiration pneumonia.Patient did have a EGD with evidence of esophagitis colonoscopy possibility of stercoral ulcer in the rectum On today's evaluation that is 02/04/2024, Patient is afebrile patient is currently on ventilator, the patient FiO2 stable at 30% no significant purulence secretion 380 mentation remains to be an issue and the patient not waking up having bowel movement. Patient white count is 8.4, creatinine 0.36 Objective - Vital Signs Vital signs: Vital Signs Temp 97.6 F 02/04/24 12:00 Pulse 74 02/04/24 14:00 Resp 15 02/04/24 14:00 BP 163/111 02/04/24 14:00 Pulse Ox 99 02/04/24 14:00 FiO2 30 02/04/24 15:22 Intake & Output 02/03/24 02/04/24 02/04/24 18:59 06:59 18:59 Intake Total 2155 1685 1474 Output Total 192 227 5120 Balance 1620 1270 219 Weight 96.3 kg Intake: IV 1505 935 865 0.9 @ 10 130 110 90 Cefepime 2 gm In Sodium 200 Chloride 0.9% 100 ml @ 25 mls/hr IVPB Q8HR [facility] Rx# :[id number] Dextrose 5%-0.45% NaCl 1, 975 825 675 000 ml @ 75 mls/hr IV . [id number] [facility] Rx#:[id number] metroNIDAZOLE-NS PMX 500 200 100 mg In Saline 1 100ml.bag @ 100 mls/hr IVPB Q8HR [facility] Rx#:[id number] Tube Feeding 560 660 549 Other 90 90 60 Output: Urine 190 279 5205 Other: Voiding Method Indwelling Catheter Indwelling Catheter Indwelling Catheter # Bowel Movements 1 1 1 ABP, PAP, CO, CI - Last Documented Arterial Blood Pressure 121/54 - Exam GENERAL DESCRIPTION: An elderly male intubated on the vent RESPIRATORY SYSTEM: Unlabored breathing , decreased breath sounds at bases HEART: S1 S2 regular rate and rhythm , ABDOMEN: Soft , no tenderness EXTREMITIES: No edema feet - Labs CBC & Chem 7: 02/04/24 04:45 02/04/24 04:45 Labs: Abnormal Lab Results - Last 24 Hours (Table) 02/03/24 02/03/24 02/04/24 Range/Units 17:09 23:10 04:45 RBC 3.02 L (4.30-5.90) m/uL Hgb 10.2 L (13.0-17.5) gm/dL Hct 31.0 L (39.0-53.0) % MCV 102.5 H (80.0-100.0) fL RDW 16.0 H (11.5-15.5) % Lymphocytes # 0.8 L (1.0-4.8) k/uL ABG HCO3 (21-25) mmol/L ABG Total CO2 (19-24) mmol/L ABG O2 Saturation (94-97) % Hemoglobin (13.0-17.5) gm/dL Chloride (98-107) mmol/L BUN (9-20) mg/dL Creatinine (0.66-1.25) mg/dL Glucose (74-99) mg/dL POC Glucose (mg/dL) 129 H 115 H (70-110) mg/dL Calcium (8.4-10.2) mg/dL 02/04/24 02/04/24 02/04/24 Range/Units 04:45 05:29 05:32 RBC (4.30-5.90) m/uL Hgb (13.0-17.5) gm/dL Hct (39.0-53.0) % MCV (80.0-100.0) fL RDW (11.5-15.5) % Lymphocytes # (1.0-4.8) k/uL ABG HCO3 29 H (21-25) mmol/L ABG Total CO2 30 H (19-24) mmol/L ABG O2 Saturation 98.3 H (94-97) % Hemoglobin 10.6 L (13.0-17.5) gm/dL Chloride 114 H (98-107) mmol/L BUN 8 L (9-20) mg/dL Creatinine 0.36 L (0.66-1.25) mg/dL Glucose 125 H (74-99) mg/dL POC Glucose (mg/dL) 121 H (70-110) mg/dL Calcium 8.1 L (8.4-10.2) mg/dL 02/04/24 Range/Units 12:29 RBC (4.30-5.90) m/uL Hgb (13.0-17.5) gm/dL Hct (39.0-53.0) % MCV (80.0-100.0) fL RDW (11.5-15.5) % Lymphocytes # (1.0-4.8) k/uL ABG HCO3 (21-25) mmol/L ABG Total CO2 (19-24) mmol/L ABG O2 Saturation (94-97) % Hemoglobin (13.0-17.5) gm/dL Chloride (98-107) mmol/L BUN (9-20) mg/dL Creatinine (0.66-1.25) mg/dL Glucose (74-99) mg/dL POC Glucose (mg/dL) 117 H (70-110) mg/dL Calcium (8.4-10.2) mg/dL Assessment and Plan (1) Sepsis Current Visit: Yes Status: Acute Code(s): A41.9 - SEPSIS, UNSPECIFIED ORGANISM SNOMED Code(s): 04239546 (2) Aspiration pneumonia Current Visit: Yes Status: Acute Code(s): J69.0 - PNEUMONITIS DUE TO INHALATION OF FOOD AND VOMIT SNOMED Code(s): 154133593 Plan: 1patient with an episode of sepsis in this patient who did have significant e vaded white count patient also have mild hypotension and source is likely aspiration pneumonitis and the patient noted to have significant vomiting at the time of intubation with evidence of left basilar infiltrate on the chest x-ray will need to cover for resistant gram-positive as well as gram-negative pathogen 2-penicillin allergy limit number of antibiotics safe to use 3-blood cultures has been negative and sputum cultures are currently growing Klebsiella, patient CSF culture growing presumptive MRSA however CSF white count was 0 and glucose was normal at 72 more likely representing contamination rather than true infection 4patient remains to be afebrile white count has normalized, patient is currently on Rocephin and Flagyl to continue to monitor clinical course closely Dictation was produced using [employer] software. please excuse any grammatical, word or spelling errors. Time with Patient: Less than 30
[2024-02-04 17:01] LABS: Glucose,Whole Blood 113 mg/dL (70-110)
[2024-02-04 17:47] LABS: African American GFR (CKD) >90 (>60 ml/min/1.73 sqM); Anion Gap -1 mmol/L; Blood Urea Nitrogen 8 mg/dL (9-20); Calcium 8.1 mg/dL (8.4-10.2); Carbon Dioxide 26 mmol/L (22-30); Chloride 113 mmol/L (98-107); Glucose 122 mg/dL (74-99); Non-African American GFR(CKD) >90 (>60 ml/min/1.73 sqM); Sodium 138 mmol/L (137-145)
[2024-02-04 17:48] LABS: Magnesium 1.5 mg/dL (1.6-2.3); Potassium 4.1 mmol/L (3.5-5.1)
[2024-02-04] MEDS: MAGNESIUM SULFATE-D5W PMX 1 GM in DEXTROSE/WATER 1 100ML.BAG IVPB SCH (18:09)
[2024-02-04 23:31] LABS: Glucose,Whole Blood 140 mg/dL (70-110)
[2024-02-05 04:53] LABS: Anisocytosis Slight; Basophils % (A) 0 %; Eosinophils # (A) 0.2 k/uL (0-0.7); Eosinophils % (A) 2 %; HCT 33.2 % (39.0-53.0); Lymphocytes % (A) 9 %; MCH 33.8 pg (25.0-35.0); MCHC 33.1 g/dL (31.0-37.0); MCV 102.3 fL (80.0-100.0); Macrocytosis Moderate; Mean Platelet Volume 9.5; Monocytes # (A) 0.5 k/uL (0-1.0); Monocytes % (A) 5 %; Neutrophils # (A) 9.2 k/uL (1.3-7.7); Neutrophils % (A) 84 %; Platelet Count 199 k/uL (150-450); RBC 3.25 m/uL (4.30-5.90); RDW 16.7 % (11.5-15.5)
[2024-02-05 05:02] LABS: African American GFR (CKD) >90 (>60 ml/min/1.73 sqM); Anion Gap -1 mmol/L; Blood Urea Nitrogen 10 mg/dL (9-20); Calcium 8.2 mg/dL (8.4-10.2); Carbon Dioxide 32 mmol/L (22-30); Chloride 107 mmol/L (98-107); Glucose 110 mg/dL (74-99); Magnesium 1.6 mg/dL (1.6-2.3); Non-African American GFR(CKD) >90 (>60 ml/min/1.73 sqM); Potassium 3.4 mmol/L (3.5-5.1); Sodium 138 mmol/L (137-145)
[2024-02-05 05:39] LABS: ABG Base Excess 7.1 mmol/L; ABG HCO3 32 mmol/L (21-25); ABG Oxygen Saturation 96.6 % (94-97); ABG PCO2 46 mmHg (35-45); ABG PH 7.45 (7.35-7.45); ABG PO2 80 mmHg (83-108); ABG TCO2 33 mmol/L (19-24); Allen Test Performed? Yes
[2024-02-05 06:05] LABS: Glucose,Whole Blood 107 mg/dL (70-110)
[2024-02-05] MEDS: POTASSIUM BICARBONATE/CIT AC 20 MEQ TABLET.EFF NG-TUBE SCH ×2 (06:25→18:05)
[2024-02-05] MEDS: MAGNESIUM SULFATE-D5W PMX 1 GM in DEXTROSE/WATER 1 100ML.BAG IVPB SCH (06:41)
--- NOTE | 2024-02-05 08:21 | XR ---
EXAMINATION TYPE: XR chest 1V portable DATE OF EXAM: 02/05/2024 5:38 AM COMPARISON: Chest radiographs from 02/04/2024 CLINICAL INDICATION: Male, 68 years old with history of mechanical ventilation; [facility] TECHNIQUE: XR chest 1V portable Frontal view of the chest. FINDINGS: Lungs/Pleura: Blunting of left costophrenic angle. There is no evidence of right pleural effusion, fo thanh consolidation, or pneumothorax. Pulmonary vascularity: Unremarkable. Heart/mediastinum: Cardiomediastinal silhouette is unremarkable. Musculoskeletal: No acute osseous pathology. Other findings: None Lines/Tubes: Endotracheal tube with distal tip 3.0 cm above the elizabeth. Nasogastric tube with its distal tip and side-port projecting under the diaphragm. Right central venous catheter with distal tip at the cavoatrial junction. IMPRESSION: No acute cardiopulmonary disease/process. Support tubes in appropriate position. Small left pleural effusion. [facility], , 02/05/2024 8:18 AM
[2024-02-05] MEDS: FUROSEMIDE 10 MG/ML 2 ML VIAL IV ONE (09:10)
[2024-02-05] MEDS: metroNIDAZOLE 500 MG TAB PO SCH (09:11)
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
[2024-02-05] MEDS: IPRATROPIUM-ALBUTEROL 3 ML NEB INHALATION SCH (11:33)
[2024-02-05 11:58] LABS: Glucose,Whole Blood 108 mg/dL (70-110)
--- NOTE | 2024-02-05 12:05 | P.PN ---
Subjective Progress Note Date: 02/05/24 Principal diagnosis: Reason for follow-up is sepsis possible aspiration pneumonia Patient is a 68-year-old male with a past medical history significant for COPD hypertension [place] osteoarthritis patient did have a history of necrotizing infection of the left lower extremity with initial admission to hospital mental status changes subsequently have worsening of his respiratory status requiring intubation and concern for possible aspiration pneumonia.Patient did have a EGD with evidence of esophagitis colonoscopy possibility of stercoral ulcer in the rectum On today's evaluation that is 02/05/2024, patient has been afebrile, patient is on the ventilator FiO2 stable at 30% no significant purulent secretion through the ET vomiting diarrhea any change reported by the nursing staff. Patient white count is slightly up to 11,000 creatinine 0.32 blood culture has been negative Objective - Vital Signs Vital signs: Vital Signs Temp 97.5 F L 02/05/24 12:00 Pulse 78 02/05/24 12:00 Resp 14 02/05/24 12:00 BP 115/81 02/05/24 12:00 Pulse Ox 100 02/05/24 12:00 FiO2 30 02/05/24 12:00 Intake & Output 02/04/24 02/05/24 02/05/24 18:59 06:59 18:59 Intake Total 2388 1796 836 Output Total 1860 1885 2420 Balance 528 89 -1584 Weight 96.9 kg 96.9 kg Intake: IV 1305 935 410 0.9 @ 10 130 110 80 Dextrose 5%-0.45% NaCl 1, 975 825 230 000 ml @ 20 mls/hr IV . Q24H [facility] Rx#:[id number] Magnesium Sulfate-D5w Pmx 100 1 gm In Dextrose/Water 1 100ml.bag @ 100 mls/hr IVPB Q1H [facility] Rx#: [id number] metroNIDAZOLE-NS PMX 500 200 mg In Saline 1 100ml.bag @ 100 mls/hr IVPB Q8HR [facility] Rx#:[id number] Intake, IV Titration 200 100 Amount Magnesium Sulfate-D5w Pmx 100 100 1 gm In Dextrose/Water 1 100ml.bag @ 100 mls/hr IVPB Q1H [facility] Rx#: [id number] cefTRIAXone 2 gm In 100 Sodium Chloride 0.9% 50 ml @ 100 mls/hr IVPB Q24HR@1600 [facility] Rx#: [id number] Tube Feeding 793 671 366 Other 90 90 60 Output: Urine 6220 9851 8380 Other: Voiding Method Indwelling Catheter Indwelling Catheter Indwelling Catheter # Bowel Movements 1 1 1 ABP, PAP, CO, CI - Last Documented Arterial Blood Pressure 121/54 - Exam GENERAL DESCRIPTION: An elderly male intubated on the vent RESPIRATORY SYSTEM: Unlabored breathing , decreased breath sounds at bases HEART: S1 S2 regular rate and rhythm , ABDOMEN: Soft , no tenderness EXTREMITIES: No edema feet - Labs CBC & Chem 7: 02/05/24 04:42 02/05/24 04:42 Labs: Abnormal Lab Results - Last 24 Hours (Table) 02/04/24 02/04/24 02/04/24 Range/Units 12:29 17:00 17:07 WBC (3.8-10.6) k/uL RBC (4.30-5.90) m/uL Hgb (13.0-17.5) gm/dL Hct (39.0-53.0) % MCV (80.0-100.0) fL RDW (11.5-15.5) % Neutrophils # (1.3-7.7) k/uL ABG pCO2 (35-45) mmHg ABG pO2 (83-108) mmHg ABG HCO3 (21-25) mmol/L ABG Total CO2 (19-24) mmol/L Potassium (3.5-5.1) mmol/L Chloride 113 H (98-107) mmol/L Carbon Dioxide (22-30) mmol/L BUN 8 L (9-20) mg/dL Creatinine 0.32 L (0.66-1.25) mg/dL Glucose 122 H (74-99) mg/dL POC Glucose (mg/dL) 117 H 113 H (70-110) mg/dL Calcium 8.1 L (8.4-10.2) mg/dL Magnesium 1.5 L (1.6-2.3) mg/dL 02/04/24 02/05/24 02/05/24 Range/Units 23:30 04:42 04:42 WBC 11.0 H (3.8-10.6) k/uL RBC 3.25 L (4.30-5.90) m/uL Hgb 11.0 L (13.0-17.5) gm/dL Hct 33.2 L (39.0-53.0) % MCV 102.3 H (80.0-100.0) fL RDW 16.7 H (11.5-15.5) % Neutrophils # 9.2 H (1.3-7.7) k/uL ABG pCO2 (35-45) mmHg ABG pO2 (83-108) mmHg ABG HCO3 (21-25) mmol/L ABG Total CO2 (19-24) mmol/L Potassium 3.4 L (3.5-5.1) mmol/L Chloride (98-107) mmol/L Carbon Dioxide 32 H (22-30) mmol/L BUN (9-20) mg/dL Creatinine 0.32 L (0.66-1.25) mg/dL Glucose 110 H (74-99) mg/dL POC Glucose (mg/dL) 140 H (70-110) mg/dL Calcium 8.2 L (8.4-10.2) mg/dL Magnesium (1.6-2.3) mg/dL 02/05/24 Range/Units 05:30 WBC (3.8-10.6) k/uL RBC (4.30-5.90) m/uL Hgb (13.0-17.5) gm/dL Hct (39.0-53.0) % MCV (80.0-100.0) fL RDW (11.5-15.5) % Neutrophils # (1.3-7.7) k/uL ABG pCO2 46 H (35-45) mmHg ABG pO2 80 L (83-108) mmHg ABG HCO3 32 H (21-25) mmol/L ABG Total CO2 33 H (19-24) mmol/L Potassium (3.5-5.1) mmol/L Chloride (98-107) mmol/L Carbon Dioxide (22-30) mmol/L BUN (9-20) mg/dL Creatinine (0.66-1.25) mg/dL Glucose (74-99) mg/dL POC Glucose (mg/dL) (70-110) mg/dL Calcium (8.4-10.2) mg/dL Magnesium (1.6-2.3) mg/dL Assessment and Plan (1) Sepsis Current Visit: Yes Status: Acute Code(s): A41.9 - SEPSIS, UNSPECIFIED ORGANISM SNOMED Code(s): 80334318 (2) Aspiration pneumonia Current Visit: Yes Status: Acute Code(s): J69.0 - PNEUMONITIS DUE TO INHALATION OF FOOD AND VOMIT SNOMED Code(s): 995214583 Plan: 1patient with an episode of sepsis in this patient who did have significant evaded white count patient also have mild hypotension and source is likely aspiration pneumonitis and the patient noted to have significant vomiting at the time of intubation with evidence of left basilar infiltrate on the chest x-ray will need to cover for resistant gram-positive as well as gram-negative pathogen 2-penicillin allergy limit number of antibiotics safe to use 3-blood cultures has been negative and sputum cultures are currently growing Klebsiella, patient CSF culture growing presumptive MRSA however CSF white count was 0 and glucose was normal at 72 more likely representing contamination rather than true infection 4patient remains to be afebrile white count slightly up today to 11.1 thousand which should be monitored closely if fever or any worsening of the white count will reculture and adjust antibiotic further, for now continue Rocephin and Flagyl Dictation was produced using [employer] dictation software. please excuse any grammatical, word or spelling errors. Time with Patient: Less than 30
--- NOTE | 2024-02-05 13:46 | P.PN ---
Subjective Progress Note Date: 02/05/24 CHIEF COMPLAINT: Aspiration pneumonia HISTORY OF PRESENT ILLNESS: Patient remains in the ICU on mechanical ventilation. Patient is status post EGD and colonoscopy with GI service. Results as shown mild distal esophagitis no active bleed and colonoscopy had reported old blood in the left colon and a large amount of solid stool that was impacted in the rectum. Patient has had multiple stools. Patient did have formed stools. Laxatives have been discontinued. He remains on Dulcolax suppository. Nursing staff reports no blood in the stools. They are unable to wean patient from vent. Afebrile. WBC 11 Hgb 11 potassium 3.4 magnesium 1.6 PHYSICAL EXAM: VITAL SIGNS: Reviewed. GENERAL: no acute distress. ABDOMEN: Soft. Nondistended. Nontender. NEUROLOGIC: Intubated and sedated ASSESSMENT: 1. Acute lower GI bleed status post EGD and colonoscopy 2. Fecal impaction 3. Aspiration pneumonia 4. Hypokalemia and hypomagnesemia PLAN: -Patient scheduled for tracheostomy and PEG tube placement with Dr. Rubio tomorrow -Hold tube feeds after midnight -Electrolytes are being corrected Physician Skilled Nursing Case Manager note has been reviewed by physician. Signing provider agrees with the documented findings, assessment, and plan of care. Attestation Patient seen and examined bedside. Continues to have bowel function. Fecal impaction appears to be resolving. Based on lack of progression from mechanical ventilation, recommendation has been made for tracheostomy and PEG tube placement. This is scheduled for tomorrow. Nettie Clement, Objective - Vital Signs Vital signs: Vital Signs Temp 97.5 F L 02/05/24 12:00 Pulse 78 02/05/24 12:00 Resp 14 02/05/24 12:00 BP 115/81 02/05/24 12:00 Pulse Ox 100 02/05/24 12:00 FiO2 30 02/05/24 12:00 Intake & Output 02/04/24 02/05/24 02/05/24 18:59 06:59 18:59 Intake Total 2388 1796 836 Output Total 1860 1885 2420 Balance 968 -78 -2024 Weight 96.9 kg 96.9 kg Intake: IV 1305 935 410 0.9 @ 10 130 110 80 Dextrose 5%-0.45% NaCl 1, 975 825 230 000 ml @ 20 mls/hr IV . Q24H [facility] Rx#:[id number] Magnesium Sulfate-D5w Pmx 100 1 gm In Dextrose/Water 1 100ml.bag @ 100 mls/hr IVPB Q1H [facility] Rx#: [id number] metroNIDAZOLE-NS PMX 500 200 mg In Saline 1 100ml.bag @ 100 mls/hr IVPB Q8HR [facility] Rx#:[id number] Intake, IV Titration 200 100 Amount Magnesium Sulfate-D5w Pmx 100 100 1 gm In Dextrose/Water 1 100ml.bag @ 100 mls/hr IVPB Q1H [facility] Rx#: [id number] cefTRIAXone 2 gm In 100 Sodium Chloride 0.9% 50 ml @ 100 mls/hr IVPB Q24HR@1600 [facility] Rx#: [id number] Tube Feeding 793 671 366 Other 90 90 60 Output: Urine 1860 1885 2420 Other: Voiding Method Indwelling Catheter Indwelling Catheter Indwelling Catheter # Bowel Movements 1 1 1 ABP, PAP, CO, CI - Last Documented Arterial Blood Pressure 121/54 - Labs CBC & Chem 7: 02/05/24 04:42 02/05/24 15:23 Labs: Abnormal Lab Results - Last 24 Hours (Table) 02/04/24 02/04/24 02/04/24 Range/Units 17:00 17:07 23:30 WBC (3.8-10.6) k/uL RBC (4.30-5.90) m/uL Hgb (13.0-17.5) gm/dL Hct (39.0-53.0) % MCV (80.0-100.0) fL RDW (11.5-15.5) % Neutrophils # (1.3-7.7) k/uL ABG pCO2 (35-45) mmHg ABG pO2 (83-108) mmHg ABG HCO3 (21-25) mmol/L ABG Total CO2 (19-24) mmol/L Potassium (3.5-5.1) mmol/L Chloride 113 H (98-107) mmol/L Carbon Dioxide (22-30) mmol/L BUN 8 L (9-20) mg/dL Creatinine 0.32 L (0.66-1.25) mg/dL Glucose 122 H (74-99) mg/dL POC Glucose (mg/dL) 113 H 140 H (70-110) mg/dL Calcium 8.1 L (8.4-10.2) mg/dL Magnesium 1.5 L (1.6-2.3) mg/dL 02/05/24 02/05/24 02/05/24 Range/Units 04:42 04:42 05:30 WBC 11.0 H (3.8-10.6) k/uL RBC 3.25 L (4.30-5.90) m/uL Hgb 11.0 L (13.0-17.5) gm/dL Hct 33.2 L (39.0-53.0) % MCV 102.3 H (80.0-100.0) fL RDW 16.7 H (11.5-15.5) % Neutrophils # 9.2 H (1.3-7.7) k/uL ABG pCO2 46 H (35-45) mmHg ABG pO2 80 L (83-108) mmHg ABG HCO3 32 H (21-25) mmol/L ABG Total CO2 33 H (19-24) mmol/L Potassium 3.4 L (3.5-5.1) mmol/L Chloride (98-107) mmol/L Carbon Dioxide 32 H (22-30) mmol/L BUN (9-20) mg/dL Creatinine 0.32 L (0.66-1.25) mg/dL Glucose 110 H (74-99) mg/dL POC Glucose (mg/dL) (70-110) mg/dL Calcium 8.2 L (8.4-10.2) mg/dL Magnesium (1.6-2.3) mg/dL
[2024-02-05 18:04] LABS: Glucose,Whole Blood 110 mg/dL (70-110)
[2024-02-05] MEDS: FUROSEMIDE 10 MG/ML 4 ML VIAL IV SCH (20:06)
[2024-02-05] MEDS ORDERED: FUROSEMIDE 10 MG/ML 4 ML VIAL IV SCH (21:00)
--- NOTE | 2024-02-05 21:23 | XR ---
EXAMINATION TYPE: XR chest 1V portable DATE OF EXAM: 02/05/2024 8:46 PM COMPARISON: Chest radiographs from 02/05/2024 CLINICAL INDICATION: Male, 68 years old with history of possible aspiration; TECHNIQUE: XR chest 1V portable Frontal view of the chest. FINDINGS: Lungs/Pleura: There is no evidence of pleural effusion, focal consolidation, or pneumothorax. Pulmonary vascularity: Unremarkable. Heart/mediastinum: Cardiomediastinal silhouette is unremarkable. Musculoskeletal: No acute osseous pathology. Other findings: None Lines/Tubes: Endotracheal tube with distal tip 4.4 cm above the elizabeth. Left internal jugular central venous catheter with distal tip at the cavoatrial junction. IMPRESSION: No radiographic evidence for aspiration. Endotracheal tube in satisfactory position. [facility], , 02/05/2024 9:20 PM
[2024-02-05] MEDS: SCOPOLAMINE 1 MG/72 HR PATCH TRANSDERM SCH (23:27)
[2024-02-05 23:55] LABS: Glucose,Whole Blood 112 mg/dL (70-110)
--- NOTE | 2024-02-06 04:02 | P.PN ---
Subjective Progress Note Date: 02/05/24 This is a pleasant 68 years old male with past medical history of psychosis and multiple admission for suicidal ideation, hypertension, osteoarthritis Patient brought to the emergency room because he was found by his roommate on the floor, hard to wake up. When he came to emergency room he was answering questions but looks like he is continued to be confused Patient currently opens eyes and follows simple commands but not all every command. Also he answers some questions. However he looks confused significantly. He is disoriented to time place and person. He has no insight. But he denies any pain. No headache. No dizziness. Moves arms and legs. No tingling. Patient on admission was tachycardic and tachypneic but afebrile He had mild leukocytosis, high hemoglobin at 25 and sodium 156 and creatinine 1.7. Liver enzymes moderately elevated Lactic acid 4.0 Troponin is elevated 0.09 Urine drug screen is negative Serum alcohol less than 10. CT of the head and neck is negative for acute process for either side Chest x-ray is negative for acute process and I reviewed the chest x-rays and agree EKG showing sinus tachycardia at [address] depression 01/21 Patient remains confused, he open eyes to verbal stimuli, he can tell me his name and then he goes back to sleep No abnormal movement Patient sodium 1 significantly elevated at 155, he was given D5W at 75 mL/h, rep eat sodium this morning is still pending Patient looks dehydrated. Reaming Machine Operator evaluated the patient for higher troponin which is thought secondary to dehydration however he has some ST depression in the lateral leads, head grinder recommended heparin drip x 48 hours as well as metoprolol and Lipit or which are ordered. Yesterday I discussed the case with the neurologist on-call, he recommended to hold on consult since the patient has severe metabolic abnormality. This morning patient remains confused with no significant improvement therefore we are going to reconsult neurology service. He has elevated hemoglobin and hematocrit, most likely secondary to dehydration, keep following levels till sodium level corrected and then reassess. Abdomen looks soft, patient denies abdominal pain or chest pain. 01/22 Patient was moved to the ICU yesterday because of concerns about inability to protect airway He was able to breathe okay this morning. He remains severely confused He remains on D5W at 150 mL/h, sodium down to 152 today Creatinine back to reference range Repeat CT of the brain is negative Heparin drip was discontinued and patient placed on subcutaneous heparin 01/23 Patient is becoming more encephalopathic, he is nonverbal, does not follow command does not answer questions. This is despite correction of his hyponatremia and other metabolic abnormalities like acute kidney injury. And there is concerned about ability to protect airway so far he does not need intervention but close monitoring in the ICU Today patient underwent lumbar puncture and results Showing RBC is elevated at 28, nucleated cells are 0. Glucose slightly elevated 72 and protein 106. 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 He had EEG initially done which was unremarkable another EEG is requested today, patient was started on IV Keppra 1000 mg Also ABG shows evidence of acute hypoxic hypercapnic respiratory failure, patient was unable to protect his airway and he got intubated today. In the meantime there is no abnormal movement currently. He is afebrile this morning. Last fever was on 01/22 and it was 100 degrees which is low-grade. Labs showing leukocytosis worse 21.7, hemoglobin 18, platelet count is 188. pH 7.1, pCO2 is high at 95. Oxygen with pO2 of 86 while on 15 L. Sodium 137, potassium 3.3. Liver enzymes not significantly elevated. CSF culture permanent results are still pending 01/25 Patient yesterday could not protect his airway and he was intubated and placed on mechanical ventilation. Pulmonary/critical care team following closely and help with vent management. No seizure-like activity or abnormal movements noted. EEG done and reviewed. Neurologist on the case. Patient is currently on IV Keppra 1000 twice daily Also patient started on IV vancomycin and cefepime per ID team recommendation for suspected sepsis. Cultures are pending. Patient has no fever for the last 3 days. Leukocyte count today still mildly elevated at 16 but coming down from 21 yesterday. Electrolytes are improving. Patient remains in critical condition. 01/26 Patient remains in the ICU intubated and on mechanical ventilation He is currently covered with IV vancomycin and cefepime, for suspected pneumon ia. Nasal culture growing MRSA and sputum culture growing Klebsiella pneumonia 01/27 Patient remains intubated and on mechanical ventilation without sedation. No abnormal movements noted He is afebrile and blood pressure holding well. WBCs 11. He still somewhat acidotic with pH 7.3 and pCO2 high 61. BMP and liver enzymes were unremarkable. Nasal screen is positive for MRSA sputum Culture is positive for Klebsiella CSF culture from pulmonary suction presumptive MRSA. However suspicion of STOVE INSTALLER infection is very low as CSF sample showing no leukocytes, 0 WBC. Also sugar is high rather than low which goes against infection. And also his neck was supple on examined him on admission. I discussed with the staff the CSF sample waited more than 5 hours before it goes to the lab And chest x-ray showing significant pneumonia in the left lower lobe Currently he is on cefepime also on IV Keppra 02/02 I am assuming the care of the patient today. He remains in the ICU intubated and with no much improvement in his encephalopathy The exact cause of his encephalopathy is unknown. Pulmonary team on the case. Patient may benefit from tracheostomy and PEG tube replacement. Pending legal guardianship determination on Monday He keeps covered with antibiotic currently with ceftriaxone and [facility] Surgery team were following the case for recent GI bleed. Currently looks stable 02/03 Patient on mechanical ventilation, is currently intubated. Still severely encephalopathic Afebrile and vital stable No leukocytosis and hemoglobin 10.2. BMP is unremarkable. Patient will be evaluated for tracheostomy and PEG tube placement after legal guardianship determination 02/05/2024 Patient is seen in follow-up continues in the ICU on mechanical ventilation and difficult weaning planning for PEG and trach tentatively 02/06/2024. Patient was awaiting an appointed guardian and social work following going to court today. Discussed also possible comfort measures. Patient continues on mechanical ventilation and continuing to undergo neurological workup. Repeat CT brain is ordered and pending. Review of systems: Unable to obtain as patient is on mechanical ventilation and sedation Active Medications Albuterol/Ipratropium (Ipratropium-Albuterol 3 Ml Neb) 3 ml INHALATION RT-Q4H [facility] Last Admin: 02/05/24 15:21 Dose: 3 ml Atorvastatin Calcium (Atorvastatin 40 Mg Tab) 40 mg PO HS [facility] Last Admin: 02/04/24 20:26 Dose: 40 mg Bisacodyl (Bisacodyl 10 Mg Supp) 10 mg RECTAL DAILY [facility] Last Admin: 02/05/24 08:41 Dose: 10 mg Chlorhexidine Gluconate (Chlorhexidine Gluconate 15 Ml Cup) 15 ml MUCOUS MEM BID [facility] Last Admin: 02/05/24 08:41 Dose: 15 ml Dextrose/Water (Dextrose 50% Syringe 50 Ml) 25 ml IVP PER PROTOCOL PRN; Protocol PRN Reason: Hypoglycemia Dextrose/Water (Dextrose 50% Syringe 50 Ml) 50 ml IVP PER PROTOCOL PRN; Protocol PRN Reason: Hypoglycemia Furosemide (Furosemide 10 Mg/Ml 4 Ml Vial) 40 mg IV Q12HR [facility] Hydralazine HCl (Hydralazine Hcl 20 Mg/Ml 1 Ml Vial) 10 mg IVP Q4HR PRN PRN Reason: Blood Pressure - High Last Admin: 01/31/24 02:59 Dose: 10 mg Dextrose/Sodium Chloride (Dextrose 5%-1/2ns Iv Soln) 1,000 mls @ 20 mls/hr IV .Q24H [facility] Last Admin: 02/05/24 06:26 Dose: 75 mls/hr Lactated Ringer's (Lactated Ringers) 1,000 mls @ 20 mls/hr IV .Q24H [facility] Last Admin: 02/05/24 08:41 Dose: Not Given Ceftriaxone Sodium 2 gm/ (Sodium Chloride) 50 mls @ 100 mls/hr IVPB Q24HR@1600 [facility]; Protocol Last Admin: 02/04/24 16:53 Dose: 100 mls/hr Insulin Aspart (Insulin Aspart (Novolog) 100 Unit/Ml Vial) 0 unit SQ Q6H [facility]; Protocol Last Admin: 02/05/24 11:59 Dose: Not Given Levetiracetam (Levetiracetam Iv 500 Mg/5 Ml Vial) 1,000 mg IVP Q12HR [facility] Last Admin: 02/05/24 08:42 Dose: 1,000 mg Metronidazole (Metronidazole 500 Mg Tab) 500 mg PO TID [facility]; Protocol Last Admin: 02/05/24 09:11 Dose: 500 mg Miscellaneous Information (Magnesium Replacement Protocol 1 Each Misc) 1 each MISCELLANE DAILY PRN; Protocol PRN Reason: Per Protocol Miscellaneous Information (Potassium Replacement Protocol 1 Each Misc) 1 each MISCELLANE DAILY PRN; Protocol PRN Reason: Per Protocol Naloxone HCl (Naloxone 0.4 Mg/Ml 1 Ml Vial) 0.2 mg IV Q2M PRN PRN Reason: Opioid Reversal Pantoprazole Sodium (Pantoprazole 40 Mg/10 Ml Vial) 40 mg IV DAILY [facility] Last Admin: 02/05/24 08:42 Dose: 40 mg Petrolatum (Zinc Oxide Paste (Z-Guard) 1 Applic) 1 applic TOPICAL BID PRN; Protocol PRN Reason: Wound Healing Physical exam: GENERAL: The patient is intubated and sedated on mechanical ventilation HEENT: Pupils are round and equally reacting to light. EOMI. No scleral icterus. No conjunctival pallor. Normocephalic, atraumatic. No pharyngeal erythema. No thyromegaly. CARDIOVASCULAR: S1 and S2 present. No murmurs, rubs, or gallops. PULMONARY: Chest is clear to auscultation, no wheezing , no crackles. ABDOMEN: Soft, nontender, nondistended, normoactive bowel sounds. No palpable organomegaly. MUSCULOSKELETAL: No joint swelling or deformity. EXTREMITIES: No cyanosis, clubbing, or pedal edema. NEUROLOGICAL: Gross neurological examination did not reveal any focal deficits. Could not completely assess as patient is on mechanical ventilation and sedated SKIN: No rashes. no petechiae. Assessment: Severe encephalopathy, could be multifactorial. Metabolic/toxic encephalopathy contributing, however no specified cause was found for his encephalopathy Acute hypoxic hypercapnic respiratory failure, patient unable to protect airway secondary to above, s/p intubation and mechanical ventilation with inability to wean, tentatively scheduled for PEG and trach with general surgery Suspected seizure-like activity on 01/24 x 2 Suspected sepsis. Secondary to pneumonia Acute GI bleed, improved Hypernatremia. Resolved Non-STEMI with elevated troponin with some EKG changes but patient denies chest pain. Acute kidney injury, improving History of depression, psychosis and suicidal ideation Severe dehydration and hypovolemia History of chronic left leg wound, currently wound is closed, no evidence of cellulitis but mild deformity in the muscles of the left leg Elevated lactic acid GI prophylaxis DVT prophylaxis Full code Plan: Continue with ICU management. Patient with multiple consultations following including continuing undergoing neurological workup. General surgery following as patient has unable to wean from mechanical ventilation and tentatively scheduled for PEG and trach placement Infectious disease following and maintained on antibiotics Social work following scheduled to undergo court hearing today for guardianship and will await finalized report on that to discuss treatment plan moving forward and/or possible comfort measures Due to multiple complex medical issues, overall prognosis is extremely poor and guarded at this time The impression and plan of care has been dictated by Carol Toney, Nurse Practitioner as directed. Dr. Debi MD I have performed a history and examination and MDM of this patient, discussed the same with the dictator, and agree with the dictator's assessment and plan as written ,documented as a scribe. Based on total visit time, I have performed more than 50% of the visit. Objective - Vital Signs Vital signs: Vital Signs Temp 97.5 F L 02/05/24 12:00 Pulse 75 02/05/24 15:21 Resp 15 02/05/24 15:00 BP 136/80 02/05/24 15:00 Pulse Ox 100 02/05/24 15:00 FiO2 30 02/05/24 15:21 Intake & Output 02/04/24 02/05/24 02/05/24 18:59 06:59 18:59 Intake Total 2388 1796 1139 Output Total 1860 1885 3550 Balance Weight 96.9 kg 96.9 kg Intake: IV 1305 935 530 0.9 @ 10 130 110 140 Dextrose 5%-0.45% NaCl 1, 975 825 290 000 ml @ 20 mls/hr IV . Q24H [facility] Rx#:[id number] Magnesium Sulfate-D5w Pmx 100 1 gm In Dextrose/Water 1 100ml.bag @ 100 mls/hr IVPB Q1H [facility] Rx#: [id number] metroNIDAZOLE-NS PMX 500 200 mg In Saline 1 100ml.bag @ 100 mls/hr IVPB Q8HR [facility] Rx#:[id number] Intake, IV Titration 200 100 Amount Magnesium Sulfate-D5w Pmx 100 100 1 gm In Dextrose/Water 1 100ml.bag @ 100 mls/hr IVPB Q1H [facility] Rx#: [id number] cefTRIAXone 2 gm In 100 Sodium Chloride 0.9% 50 ml @ 100 mls/hr IVPB Q24HR@1600 [facility] Rx#: [id number] Tube Feeding 793 671 549 Other 90 90 60 Output: Urine 1860 1885 3050 Stool 500 Other: Voiding Method Indwelling Catheter Indwelling Catheter Indwelling Catheter # Bowel Movements 1 1 1 ABP, PAP, CO, CI - Last Documented Arterial Blood Pressure 121/54 - Labs CBC & Chem 7: 02/05/24 04:42 02/05/24 15:23 Labs: Abnormal Lab Results - Last 24 Hours (Table) 02/04/24 02/04/24 02/04/24 Range/Units 17:00 17:07 23:30 WBC (3.8-10.6) k/uL RBC (4.30-5.90) m/uL Hgb (13.0-17.5) gm/dL Hct (39.0-53.0) % MCV (80.0-100.0) fL RDW (11.5-15.5) % Neutrophils # (1.3-7.7) k/uL ABG pCO2 (35-45) mmHg ABG pO2 (83-108) mmHg ABG HCO3 (21-25) mmol/L ABG Total CO2 (19-24) mmol/L Potassium (3.5-5.1) mmol/L Chloride 113 H (98-107) mmol/L Carbon Dioxide (22-30) mmol/L BUN 8 L (9-20) mg/dL Creatinine 0.32 L (0.66-1.25) mg/dL Glucose 122 H (74-99) mg/dL POC Glucose (mg/dL) 113 H 140 H (70-110) mg/dL Calcium 8.1 L (8.4-10.2) mg/dL Magnesium 1.5 L (1.6-2.3) mg/dL 02/05/24 02/05/24 02/05/24 Range/Units 04:42 04:42 05:30 WBC 11.0 H (3.8-10.6) k/uL RBC 3.25 L (4.30-5.90) m/uL Hgb 11.0 L (13.0-17.5) gm/dL Hct 33.2 L (39.0-53.0) % MCV 102.3 H (80.0-100.0) fL RDW 16.7 H (11.5-15.5) % Neutrophils # 9.2 H (1.3-7.7) k/uL ABG pCO2 46 H (35-45) mmHg ABG pO2 80 L (83-108) mmHg ABG HCO3 32 H (21-25) mmol/L ABG Total CO2 33 H (19-24) mmol/L Potassium 3.4 L (3.5-5.1) mmol/L Chloride (98-107) mmol/L Carbon Dioxide 32 H (22-30) mmol/L BUN (9-20) mg/dL Creatinine 0.32 L (0.66-1.25) mg/dL Glucose 110 H (74-99) mg/dL POC Glucose (mg/dL) (70-110) mg/dL Calcium 8.2 L (8.4-10.2) mg/dL Magnesium (1.6-2.3) mg/dL
[2024-02-06 04:43] LABS: ABG Base Excess 14.2 mmol/L; ABG HCO3 39 mmol/L (21-25); ABG Oxygen Saturation 97.7 % (94-97); ABG PCO2 52 mmHg (35-45); ABG PH 7.49 (7.35-7.45); ABG PO2 87 mmHg (83-108); ABG TCO2 41 mmol/L (19-24); Allen Test Performed? Yes
[2024-02-06 05:59] LABS: Glucose,Whole Blood 105 mg/dL (70-110)
[2024-02-06 06:26] LABS: Anisocytosis Slight; Basophils % (A) 0 %; Eosinophils # (A) 0.3 k/uL (0-0.7); Eosinophils % (A) 2 %; HCT 34.7 % (39.0-53.0); HGB 11.3 gm/dL (13.0-17.5); Hypochromasia Slight; Lymphocytes # (A) 1.2 k/uL (1.0-4.8); Lymphocytes % (A) 10 %; MCH 33.9 pg (25.0-35.0); MCHC 32.7 g/dL (31.0-37.0); MCV 103.7 fL (80.0-100.0); Macrocytosis Moderate; Mean Platelet Volume 8.9; Monocytes # (A) 0.5 k/uL (0-1.0); Monocytes % (A) 4 %; Neutrophils # (A) 9.9 k/uL (1.3-7.7); Neutrophils % (A) 83 %; Platelet Count 213 k/uL (150-450); RBC 3.35 m/uL (4.30-5.90); RDW 16.3 % (11.5-15.5)
--- NOTE | 2024-02-06 06:40 | XR ---
EXAMINATION TYPE: XR chest 1V portable DATE OF EXAM: 02/06/2024 5:27 AM COMPARISON: Chest radiograph from one day prior. CLINICAL INDICATION: Male, 68 years old with history of mechanical ventilation; [facility] TECHNIQUE: XR chest 1V portable Frontal view of the chest. FINDINGS: Lungs/Pleura: No evidence of focal consolidation or pneumothorax. Blunting of the costophrenic angles is present. Pulmonary vascularity: Unremarkable. Heart/mediastinum: Cardiomediastinal silhouette is unremarkable. Musculoskeletal: No acute osseous pathology. Other findings: None Lines/Tubes: Endotracheal tube with distal tip 3.7 cm above the elizabeth. Left internal jugular central venous catheter with distal tip at the cavoatrial junction. IMPRESSION: 1. No radiographic evidence for aspiration. 2. Endotracheal tube in satisfactory position. 3. Small bilateral pleural effusions trace [facility], , 02/06/2024 6:38 AM
[2024-02-06 06:46] LABS: African American GFR (CKD) >90 (>60 ml/min/1.73 sqM); Anion Gap 1 mmol/L; Blood Urea Nitrogen 11 mg/dL (9-20); Calcium 8.5 mg/dL (8.4-10.2); Carbon Dioxide 35 mmol/L (22-30); Chloride 103 mmol/L (98-107); Glucose 94 mg/dL (74-99); Magnesium 1.6 mg/dL (1.6-2.3); Non-African American GFR(CKD) >90 (>60 ml/min/1.73 sqM); Sodium 139 mmol/L (137-145)
--- NOTE | 2024-02-06 07:23 | CT ---
EXAMINATION TYPE: CT brain wo con DATE OF EXAM: 02/06/2024 COMPARISON: 01/29/2024 HISTORY: 68-year-old male altered mental status, confusion, skew deviation TECHNIQUE: Examination was done in axial plane without intravenous contrast. Coronal and sagittal r econstructions performed. CT DLP: 1227.4 mGycm Automated exposure control for dose reduction was used. FINDINGS: There is no evidence of acute intracranial hemorrhage, acute ischemic changes, mass, mass-effect, or extra-axial fluid collection. There is no effacement of cerebral sulci or basal subarachnoid cister ns. There is no hydrocephalus. There is no midline shift. Carrasquillo-white matter distinction is preserv ed. Mild generalized supratentorial volume loss. Severe mucosal thickening throughout the paranasal sinuses. Scattered opacification throughout the ma stoid air cells has developed in the interval. The patient is intubated. Orbits and globes are intact . IMPRESSION: No acute intracranial abnormality seen. Ongoing severe paranasal sinus disease. Interval development of scattered opacification throughout the mastoid air cells probably related to intubation. [facility], , 02/06/2024 7:21 AM
[2024-02-06] MEDS: MAGNESIUM SULFATE-D5W PMX 1 GM in DEXTROSE/WATER 1 100ML.BAG IVPB SCH (08:10)
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
[2024-02-06] MEDS: ENOXAPARIN 40 MG/0.4 ML SYRINGE SQ SCH (10:18)
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
[2024-02-06 11:56] LABS: Glucose,Whole Blood 96 mg/dL (70-110)
[2024-02-06] MEDS ORDERED: PHENYLEPHRINE 10 MG/ML VIAL ONE (13:35)
[2024-02-06] MEDS ORDERED: fentaNYL (PF) 50 MCG/ML 2 ML AMP ONE (13:35)
[2024-02-06] MEDS ORDERED: MIDAZOLAM 2 MG/2 ML VIAL ONE (13:35)
[2024-02-06] MEDS: SODIUM CHLORIDE 0.9% 1,000 ML IV ONE ×2 (13:43→14:34)
[2024-02-06] MEDS: BUPIVACAINE (PF) 0.25% 30 ML VIAL SQ ONE (13:56)
--- NOTE | 2024-02-06 14:46 | P.PN ---
Subjective Progress Note Date: 02/06/24 Principal diagnosis: Reason for follow-up is sepsis possible aspiration pneumonia Patient is a 68-year-old male with a past medical history significant for COPD hypertension VA osteoarthritis patient did have a history of necrotizing infection of the left lower extremity with initial admission to hospital mental status changes subsequently have worsening of his respiratory status requiring intubation and concern for possible aspiration pneumonia.Patient did have a EGD with evidence of esophagitis colonoscopy possibility of stercoral ulcer in the rectum On today's evaluation that is 02/06/2024, Patient is afebrile this morning patient remains to be debated on the vent FiO2 is currently stable at 30% no significant purulent secretion through the ET patient is hemodynamically stable not requiring any pressor support no worsening diarrhea reported. Patient white count is 12,000, creatinine 0.32 Objective - Vital Signs Vital signs: Vital Signs Temp 98.4 F 02/06/24 08:00 Pulse 93 02/06/24 10:00 Resp 14 02/06/24 10:00 BP 132/79 02/06/24 10:00 Pulse Ox 99 02/06/24 10:00 FiO2 30 02/06/24 08:28 Intake & Output 02/05/24 02/06/24 02/06/24 18:59 06:59 18:59 Intake Total 1472 541 370 Output Total 3820 2600 1910 Balance -2347 -2058 -1540 Weight 96.9 kg 88.7 kg Intake: IV 650 480 370 0.9 @ 10 200 240 70 Dextrose 5%-0.45% NaCl 1, 350 240 100 000 ml @ 20 mls/hr IV . Q24H [facility] Rx#:[id number] Magnesium Sulfate-D5w Pmx 100 1 gm In Dextrose/Water 1 100ml.bag @ 100 mls/hr IVPB Q1H [facility] Rx#: [id number] Magnesium Sulfate-D5w Pmx 200 1 gm In Dextrose/Water 1 100ml.bag @ 100 mls/hr IVPB Q1H [facility] Rx#: [id number] Tube Feeding 732 61 Other 90 Output: Urine 3320 2600 1910 Stool 500 Other: Voiding Method Indwelling Catheter Indwelling Catheter Indwelling Catheter # Bowel Movements 1 ABP, PAP, CO, CI - Last Documented Arterial Blood Pressure 121/54 - Exam GENERAL DESCRIPTION: An elderly male intubated on the vent RESPIRATORY SYSTEM: Unlabored breathing , decreased breath sounds at bases HEART: S1 S2 regular rate and rhythm , ABDOMEN: Soft , no tenderness EXTREMITIES: No edema feet - Labs CBC & Chem 7: 02/06/24 06:11 02/06/24 06:11 Labs: Abnormal Lab Results - Last 24 Hours (Table) 02/05/24 02/06/24 02/06/24 Range/Units 23:54 04:32 06:11 WBC 12.0 H (3.8-10.6) k/uL RBC 3.35 L (4.30-5.90) m/uL Hgb 11.3 L (13.0-17.5) gm/dL Hct 34.7 L (39.0-53.0) % MCV 103.7 H (80.0-100.0) fL RDW 16.3 H (11.5-15.5) % Neutrophils # 9.9 H (1.3-7.7) k/uL ABG pH 7.49 H (7.35-7.45) ABG pCO2 52 H (35-45) mmHg ABG HCO3 39 H (21-25) mmol/L ABG Total CO2 41 H (19-24) mmol/L ABG O2 Saturation 97.7 H (94-97) % Hemoglobin 10.4 L (13.0-17.5) gm/dL Carbon Dioxide (22-30) mmol/L Creatinine (0.66-1.25) mg/dL POC Glucose (mg/dL) 112 H (70-110) mg/dL 02/06/24 Range/Units 06:11 WBC (3.8-10.6) k/uL RBC (4.30-5.90) m/uL Hgb (13.0-17.5) gm/dL Hct (39.0-53.0) % MCV (80.0-100.0) fL RDW (11.5-15.5) % Neutrophils # (1.3-7.7) k/uL ABG pH (7.35-7.45) ABG pCO2 (35-45) mmHg ABG HCO3 (21-25) mmol/L ABG Total CO2 (19-24) mmol/L ABG O2 Saturation (94-97) % Hemoglobin (13.0-17.5) gm/dL Carbon Dioxide 35 H (22-30) mmol/L Creatinine 0.32 L (0.66-1.25) mg/dL POC Glucose (mg/dL) (70-110) mg/dL Assessment and Plan (1) Sepsis Current Visit: Yes Status: Acute Code(s): A41.9 - SEPSIS, UNSPECIFIED ORGANISM SNOMED Code(s): 62603424 (2) Aspiration pneumonia Current Visit: Yes Status: Acute Code(s): J69.0 - PNEUMONITIS DUE TO INHALATION OF FOOD AND VOMIT SNOMED Code(s): 961407166 Plan: 1patient with an episode of sepsis in this patient who did have significant evaded white count patient also have mild hypotension and source is likely aspir ation pneumonitis and the patient noted to have significant vomiting at the time of intubation with evidence of left basilar infiltrate on the chest x-ray will need to cover for resistant gram-positive as well as gram-negative pathogen 2-penicillin allergy limit number of antibiotics safe to use 3-blood cultures has been negative and sputum cultures are currently growing Klebsiella, patient CSF culture growing presumptive MRSA however CSF white count was 0 and glucose was normal at 72 more likely representing contamination rather than true infection 4patient remains to be afebrile white count slightly up to 12,000 however no evidence of any worsening infection continue with Rocephin and Flagyl and monitor clinical course closely Dictation was produced using [employer] dictation software. please excuse any grammatical, word or spelling errors. Time with Patient: Less than 30
--- NOTE | 2024-02-06 15:05 | P.OP ---
Date of Procedure: 02/06/24 Preoperative Diagnosis: 1. VDRF 2. Dysphagia Postoperative Diagnosis: 1. VDRF 2. Dysphagia Procedure(s) Performed: 1. Tracheostomy 2. EGD with PEG Tube Insertion Anesthesia: MAC Surgeon: Chiki Rubio Estimated Blood Loss (ml): 25 Pathology: none sent Condition: critical Disposition: ICU Description of Procedure: Informed consent was reviewed. The patient was delivered to the OR and placed in the supine position. Landmarks were palpated and marked including the: thyroid notch, cricoid, and suprasternal notch. A number #15 blade was used to create a vertical incision extending 3 cm inferiorly from the lower border of the cricoid through dermis. Bovie dissection was employed to remove fat overlying the strap muscles. The strap muscles were grasped with Allis clamps and pulled laterally to identify the midline with hemostat separation of the straps in the midline. The area immediately below the cricoid and above the thyroid isthmus was identified by inspection and palpation and then opened with Bovie electrocautery. Blunt dissection with the tips of the hemostat identifed the anterior tracheal wall. The hemostat was redirected inferiorly to separate the posterior aspect of the thyroid isthmus from the trachea. The thyroid isthmus was divided with a handheld ligasure device. The anterior tracheal wall was further cleaned of overlying soft tissue with Kitners. The tracheal rings were identified. The anesthesiologist was requested to deflate the cuff of the ETT and advance the tip into the right mainstem. A small hemostat was directed toward the trachea and pushed through the membranous ring between 2nd and 3rd cartilaginous rings. A #15 blade to make a horizontal cut in the membranous trachea. Vertical lateral cuts were made on either side of the opening inferiorly through the third cartilaginous ring. The ET tube was pulled back out of the mainstem and cuff inflated with ventilation restored through the ETT. The endotracheal tube was partially removed, so that the tip was just superior to the tracheotomy site. The tracheostomy tube with obturator was then placed. The inner canula was placed, and placement of the tube was confirmed with CO2 return on the anesthesia monitor. Next, the PEG tube was inserted. An EGD was performed from above. The stomach was transilluminated and an optimal position for the PEG tube was identified using the single poke method. The skin was infiltrated with local and the needle and sheath were inserted through the abdomen into the stomach under direct visualization. The needle was removed and a guidewire was inserted through the sheath. The guidewire was grasped from above with a snare. It was removed completely and the Ponsky PEG tube was secured to the guidewire.The guidewire and PEG tube were then pulled through the mouth and esophagus and snug to the abdominal wall. There was no evidence of bleeding. The Bolster was placed on the PEG site. The patient tolerated the procedure well and was transferred to ICU in critical condition.
[2024-02-06 18:43] LABS: Glucose,Whole Blood 91 mg/dL (70-110)
--- NOTE | 2024-02-06 18:45 | P.PN ---
Subjective Progress Note Date: 02/06/24 This is a pleasant 68 years old male with past medical history of psychosis and multiple admission for suicidal ideation, hypertension, osteoarthritis Patient brought to the emergency room because he was found by his roommate on the floor, hard to wake up. When he came to emergency room he was answering questions but looks like he is continued to be confused Patient currently opens eyes and follows simple commands but not all every command. Also he answers some questions. However he looks confused significantly. He is disoriented to time place and person. He has no insight. But he denies any pain. No headache. No dizziness. Moves arms and legs. No tingling. Patient on admission was tachycardic and tachypneic but afebrile He had mild leukocytosis, high hemoglobin at 25 and sodium 156 and creatinine 1.7. Liver enzymes moderately elevated Lactic acid 4.0 Troponin is elevated 0.09 Urine drug screen is negative Serum alcohol less than 10. CT of the head and neck is negative for acute process for either side Chest x-ray is negative for acute process and I reviewed the chest x-rays and agree EKG showing sinus tachycardia at [address] depression 01/21 Patient remains confused, he open eyes to verbal stimuli, he can tell me his name and then he goes back to sleep No abnormal movement Patient sodium 1 significantly elevated at 155, he was given D5W at 75 mL/h, rep eat sodium this morning is still pending Patient looks dehydrated. Swing Ride Operator evaluated the patient for higher troponin which is thought secondary to dehydration however he has some ST depression in the lateral leads, check clerk recommended heparin drip x 48 hours as well as metoprolol and Lipit or which are ordered. Yesterday I discussed the case with the neurologist on-call, he recommended to hold on consult since the patient has severe metabolic abnormality. This morning patient remains confused with no significant improvement therefore we are going to reconsult neurology service. He has elevated hemoglobin and hematocrit, most likely secondary to dehydration, keep following levels till sodium level corrected and then reassess. Abdomen looks soft, patient denies abdominal pain or chest pain. 01/22 Patient was moved to the ICU yesterday because of concerns about inability to protect airway He was able to breathe okay this morning. He remains severely confused He remains on D5W at 150 mL/h, sodium down to 152 today Creatinine back to reference range Repeat CT of the brain is negative Heparin drip was discontinued and patient placed on subcutaneous heparin 01/23 Patient is becoming more encephalopathic, he is nonverbal, does not follow command does not answer questions. This is despite correction of his hyponatremia and other metabolic abnormalities like acute kidney injury. And there is concerned about ability to protect airway so far he does not need intervention but close monitoring in the ICU Today patient underwent lumbar puncture and results Showing RBC is elevated at 28, nucleated cells are 0. Glucose slightly elevated 72 and protein 106. 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 He had EEG initially done which was unremarkable another EEG is requested today, patient was started on IV Keppra 1000 mg Also ABG shows evidence of acute hypoxic hypercapnic respiratory failure, patient was unable to protect his airway and he got intubated today. In the meantime there is no abnormal movement currently. He is afebrile this morning. Last fever was on 01/22 and it was 100 degrees which is low-grade. Labs showing leukocytosis worse 21.7, hemoglobin 18, platelet count is 188. pH 7.1, pCO2 is high at 95. Oxygen with pO2 of 86 while on 15 L. Sodium 137, potassium 3.3. Liver enzymes not significantly elevated. CSF culture permanent results are still pending 01/25 Patient yesterday could not protect his airway and he was intubated and placed on mechanical ventilation. Pulmonary/critical care team following closely and help with vent management. No seizure-like activity or abnormal movements noted. EEG done and reviewed. Neurologist on the case. Patient is currently on IV Keppra 1000 twice daily Also patient started on IV vancomycin and cefepime per ID team recommendation for suspected sepsis. Cultures are pending. Patient has no fever for the last 3 days. Leukocyte count today still mildly elevated at 16 but coming down from 21 yesterday. Electrolytes are improving. Patient remains in critical condition. 01/26 Patient remains in the ICU intubated and on mechanical ventilation He is currently covered with IV vancomycin and cefepime, for suspected pneumon ia. Nasal culture growing MRSA and sputum culture growing Klebsiella pneumonia 01/27 Patient remains intubated and on mechanical ventilation without sedation. No abnormal movements noted He is afebrile and blood pressure holding well. WBCs 11. He still somewhat acidotic with pH 7.3 and pCO2 high 61. BMP and liver enzymes were unremarkable. Nasal screen is positive for MRSA sputum Culture is positive for Klebsiella CSF culture from pulmonary suction presumptive MRSA. However suspicion of RECORD TABULATING CLERK infection is very low as CSF sample showing no leukocytes, 0 WBC. Also sugar is high rather than low which goes against infection. And also his neck was supple on examined him on admission. I discussed with the staff the CSF sample waited more than 5 hours before it goes to the lab And chest x-ray showing significant pneumonia in the left lower lobe Currently he is on cefepime also on IV Keppra 02/02 I am assuming the care of the patient today. He remains in the ICU intubated and with no much improvement in his encephalopathy The exact cause of his encephalopathy is unknown. Pulmonary team on the case. Patient may benefit from tracheostomy and PEG tube replacement. Pending legal guardianship determination on Monday He keeps covered with antibiotic currently with ceftriaxone and [facility] Surgery team were following the case for recent GI bleed. Currently looks stable 02/03 Patient on mechanical ventilation, is currently intubated. Still severely encephalopathic Afebrile and vital stable No leukocytosis and hemoglobin 10.2. BMP is unremarkable. Patient will be evaluated for tracheostomy and PEG tube placement after legal guardianship determination 02/05/2024 Patient is seen in follow-up continues in the ICU on mechanical ventilation and difficult weaning planning for PEG and trach tentatively 02/06/2024. Patient was awaiting an appointed guardian and social work following going to court today. Discussed also possible comfort measures. Patient continues on mechanical ventilation and continuing to undergo neurological workup. Repeat CT brain is ordered and pending. 02/06/2024 Patient is seen in follow-up today and has received a public guardian and remains full code at this time with plans on receiving PEG tube and tracheostomy today with general surgery. Patient will require 3 attempts at weaning off the vent prior to select specialties accepting the patient. Neurology following as patient remains minimally responsive and follow-up CT was negative and patient is off sedation. Review of systems: Unable to obtain as patient is on mechanical ventilation and unresponsive Physical exam: GENERAL: The patient is intubated and sedated on mechanical ventilation, ill- appearing, elderly appearing HEENT: Pupils are round and equally reacting to light. EOMI. No scleral icterus. No conjunctival pallor. Normocephalic, atraumatic. No pharyngeal erythema. No thyromegaly. CARDIOVASCULAR: S1 and S2 muffled PULMONARY: Diminished breath sounds bilaterally with some bronchial congestion otherwise chest is clear to auscultation, no wheezing , no crackles. ABDOMEN: Soft, obese, nontender, nondistended, normoactive bowel sounds. No palpable organomegaly. MUSCULOSKELETAL: No joint swelling or deformity. EXTREMITIES: No cyanosis, clubbing, or pedal edema. NEUROLOGICAL: Gross neurological examination did not reveal any focal deficits. Could not completely assess as patient is on mechanical ventilation and unresponsive SKIN: No rashes. no petechiae. Edematous Assessment: Severe encephalopathy, could be multifactorial. Metabolic/toxic encephalopathy contributing, however no specified cause was found for his encephalopathy Acute hypoxic hypercapnic respiratory failure, patient unable to protect airway secondary to above, s/p intubation and mechanical ventilation with inability to wean, tentatively scheduled for PEG and trach with general surgery today Suspected seizure-like activity on 01/24 x 2 Suspected sepsis. Secondary to pneumonia Acute GI bleed, improved Hypernatremia. Resolved Non-STEMI with elevated troponin with some EKG changes but patient denies chest pain. Acute kidney injury, improving History of depression, psychosis and suicidal ideation Severe dehydration and hypovolemia History of chronic left leg wound, currently wound is closed, no evidence of cellulitis but mild deformity in the muscles of the left leg Elevated lactic acid GI prophylaxis DVT prophylaxis Full code Plan: Continue with ICU management. Patient with multiple consultations following including continuing undergoing neurological workup. General surgery following as patient has unable to wean from mechanical ventilation and tentatively scheduled for PEG and trach placement today with Dr. Rubio Infectious disease following and maintained on antibiotics Social work following and has obtained legal guardianship and will await finalized report on that to discuss treatment plan moving forward and/or possible comfort measures Currently remains full code and will undergo PEG and trach and will require 3 attempts at weaning to be considered for select specialties. Patient will require extensive rehab and continuous respiratory care. Due to multiple complex medical issues, overall prognosis is extremely poor and guarded at this time The impression and plan of care has been dictated by Carol Toney, Nurse Practitioner as directed. Dr. Debi MD I have performed a history and examination and MDM of this patient, discussed the same with the dictator, and agree with the dictator's assessment and plan as written ,documented as a scribe. Based on total visit time, I have performed more than 50% of the visit. Objective - Vital Signs Vital signs: Vital Signs Temp 98.4 F 02/06/24 08:00 Pulse 89 02/06/24 08:40 Resp 14 02/06/24 08:00 BP 137/76 02/06/24 08:00 Pulse Ox 100 02/06/24 08:00 FiO2 30 02/06/24 08:28 Intake & Output 02/05/24 02/06/24 02/06/24 18:59 06:59 18:59 Intake Total 1472 541 210 Output Total 3820 2600 210 Balance -8 -9 0 Weight 96.9 kg 88.7 kg Intake: IV 650 480 210 0.9 @ 10 200 240 50 Dextrose 5%-0.45% NaCl 1, 350 240 60 000 ml @ 20 mls/hr IV . Q24H FIFI Rx#:[id number] Magnesium Sulfate-D5w Pmx 100 1 gm In Dextrose/Water 1 100ml.bag @ 100 mls/hr IVPB Q1H [facility] Rx#: [id number] Magnesium Sulfate-D5w Pmx 100 1 gm In Dextrose/Water 1 100ml.bag @ 100 mls/hr IVPB Q1H FIFI Rx#: [id number] Tube Feeding 732 61 Other 90 Output: Urine 3320 2600 210 Stool 500 Other: Voiding Method Indwelling Catheter Indwelling Catheter # Bowel Movements 1 ABP, PAP, CO, CI - Last Documented Arterial Blood Pressure 121/54 - Labs CBC & Chem 7: 02/06/24 06:11 02/06/24 06:11 Labs: Abnormal Lab Results - Last 24 Hours (Table) 02/05/24 02/06/24 02/06/24 Range/Units 23:54 04:32 06:11 WBC 12.0 H (3.8-10.6) k/uL RBC 3.35 L (4.30-5.90) m/uL Hgb 11.3 L (13.0-17.5) gm/dL Hct 34.7 L (39.0-53.0) % MCV 103.7 H (80.0-100.0) fL RDW 16.3 H (11.5-15.5) % Neutrophils # 9.9 H (1.3-7.7) k/uL ABG pH 7.49 H (7.35-7.45) ABG pCO2 52 H (35-45) mmHg ABG HCO3 39 H (21-25) mmol/L ABG Total CO2 41 H (19-24) mmol/L ABG O2 Saturation 97.7 H (94-97) % Hemoglobin 10.4 L (13.0-17.5) gm/dL Carbon Dioxide (22-30) mmol/L Creatinine (0.66-1.25) mg/dL POC Glucose (mg/dL) 112 H (70-110) mg/dL 02/06/24 Range/Units 06:11 WBC (3.8-10.6) k/uL RBC (4.30-5.90) m/uL Hgb (13.0-17.5) gm/dL Hct (39.0-53.0) % MCV (80.0-100.0) fL RDW (11.5-15.5) % Neutrophils # (1.3-7.7) k/uL ABG pH (7.35-7.45) ABG pCO2 (35-45) mmHg ABG HCO3 (21-25) mmol/L ABG Total CO2 (19-24) mmol/L ABG O2 Saturation (94-97) % Hemoglobin (13.0-17.5) gm/dL Carbon Dioxide 35 H (22-30) mmol/L Creatinine 0.32 L (0.66-1.25) mg/dL POC Glucose (mg/dL) (70-110) mg/dL
[2024-02-06 23:32] LABS: Glucose,Whole Blood 99 mg/dL (70-110)
[2024-02-07 04:21] LABS: ABG Base Excess 10.8 mmol/L; ABG HCO3 36 mmol/L (21-25); ABG Oxygen Saturation 97.7 % (94-97); ABG PCO2 49 mmHg (35-45); ABG PH 7.48 (7.35-7.45); ABG PO2 91 mmHg (83-108); ABG TCO2 37 mmol/L (19-24); Allen Test Performed? Yes
[2024-02-07 05:54] LABS: Glucose,Whole Blood 116 mg/dL (70-110)
[2024-02-07 05:55] LABS: Basophils % (A) 0 %; Eosinophils # (A) 0.1 k/uL (0-0.7); Eosinophils % (A) 1 %; HCT 34.5 % (39.0-53.0); Hypochromasia Slight; Lymphocytes % (A) 8 %; MCH 33.3 pg (25.0-35.0); MCHC 31.8 g/dL (31.0-37.0); MCV 104.7 fL (80.0-100.0); Macrocytosis Moderate; Mean Platelet Volume 8.8; Monocytes # (A) 0.7 k/uL (0-1.0); Monocytes % (A) 6 %; Neutrophils # (A) 10.2 k/uL (1.3-7.7); Neutrophils % (A) 84 %; Platelet Count 222 k/uL (150-450); WBC 12.1 k/uL (3.8-10.6)
[2024-02-07 06:08] LABS: African American GFR (CKD) >90 (>60 ml/min/1.73 sqM); Anion Gap 3 mmol/L; Blood Urea Nitrogen 13 mg/dL (9-20); Calcium 8.7 mg/dL (8.4-10.2); Carbon Dioxide 32 mmol/L (22-30); Chloride 102 mmol/L (98-107); Glucose 125 mg/dL (74-99); Magnesium 1.7 mg/dL (1.6-2.3); Non-African American GFR(CKD) >90 (>60 ml/min/1.73 sqM); Potassium 3.6 mmol/L (3.5-5.1); Sodium 137 mmol/L (137-145)
[2024-02-07] MEDS ORDERED: POTASSIUM CHLORIDE 20 MEQ in SODIUM CHLORIDE 0.9% 100 ML IVPB SCH (07:30)
--- NOTE | 2024-02-07 08:10 | XR ---
EXAMINATION TYPE: XR chest 1V portable DATE OF EXAM: 02/07/2024 5:13 AM COMPARISON: Chest radiograph from one day prior. CLINICAL INDICATION: Male, 68 years old with history of mechanical ventilation; [facility] TECHNIQUE: XR chest 1V portable Frontal view of the chest. FINDINGS: Lungs/Pleura: No evidence of focal consolidation or pneumothorax. Blunting of the costophrenic angles is present. Pulmonary vascularity: Unremarkable. Heart/mediastinum: Cardiomediastinal silhouette is unremarkable. Musculoskeletal: No acute osseous pathology. Other findings: None Lines/Tubes: Tracheostomy cannula tip projecting over the trachea. Left internal jugular central venous catheter with distal tip at the cavoatrial junction. IMPRESSION: 1. No radiographic evidence for aspiration. 2. Tracheostomy cannula now in place. 3. Small bilateral pleural effusions trace [facility] Amos Thayer, , 02/07/2024 8:08 AM
[2024-02-07] MEDS: POTASSIUM CHLORIDE 20 MEQ in SODIUM CHLORIDE 0.9% 100 ML IVPB SCH (08:18)
[2024-02-07] MEDS: MAGNESIUM SULFATE-D5W PMX 1 GM in DEXTROSE/WATER 1 100ML.BAG IVPB ONE (08:19)
[2024-02-07] MEDS ORDERED: POTASSIUM CHLORIDE 20 MEQ in WATER FOR INJECTION 1 100ML.BAG IVPB ONE (09:30)
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
[2024-02-07 11:55] LABS: Glucose,Whole Blood 122 mg/dL (70-110)
--- NOTE | 2024-02-07 14:24 | P.PN ---
Subjective Progress Note Date: 02/07/24 CHIEF COMPLAINT: Aspiration pneumonia HISTORY OF PRESENT ILLNESS: Patient remains in the ICU on mechanical ventilation. Patient is status post tracheostomy and PEG tube placement yesterday. Patient is status post EGD and colonoscopy with GI service on 01/31. Results as shown mild distal esophagitis no active bleed and colonoscopy had reported old blood in the left colon and a large amount of solid stool that was impacted in the rectum. Lactulose is currently discontinued. Patient had 3 large liquidy brown stools after suppository yesterday. No blood in the stools. Hemoglobin stable at 11.0 PHYSICAL EXAM: VITAL SIGNS: Reviewed. GENERAL: no acute distress. HEENT: Tracheostomy site is intact. No drainage. Tracheostomy opening is large ABDOMEN: Soft. Nondistended. Nontender. Peg tube site clean dry and intact NEUROLOGIC: Intubated and sedated ASSESSMENT: 1. Acute lower GI bleed status post EGD and colonoscopy 2. Fecal impaction 3. Aspiration pneumonia PLAN: -Consult dietitian to start tube feeds via peg tube -Hold suppository for today -Follow-up abdominal x-ray ordered for fecal impaction Physician Assistant Superintendent [employer] note has been reviewed by physician. Signing provider agrees with the documented findings, assessment, and plan of care. Objective - Vital Signs Vital signs: Vital Signs Temp 97.4 F L 02/07/24 12:00 Pulse 93 02/07/24 13:00 Resp 15 02/07/24 13:00 BP 136/79 02/07/24 13:00 Pulse Ox 96 02/07/24 13:00 FiO2 30 02/07/24 12:00 Intake & Output 02/06/24 02/07/24 02/07/24 18:59 06:59 18:59 Intake Total 1100 440 240 Output Total 7272 7011 1011 Balance -1528 -2284 -1384 Weight 81.5 kg 81.5 kg Intake: IV 1100 440 240 0.9 @ 10 210 240 100 Dextrose 5%-0.45% NaCl 1, 240 200 40 000 ml @ 20 mls/hr IV . Q24H [facility] Rx#:[id number] Magnesium Sulfate-D5w Pmx 200 1 gm In Dextrose/Water 1 100ml.bag @ 100 mls/hr IVPB Q1H [facility] Rx#: [id number] Potassium Chloride 20 meq 100 In Sodium Chloride 0.9% 100 ml @ 55 mls/hr IVPB Q2H [facility] Rx#:[id number] cefTRIAXone 2 gm In 50 Sodium Chloride 0.9% 50 ml @ 100 mls/hr IVPB Q24HR@1600 REPLACED BY [facility] Rx#: [id number] Output: Urine 2515 1945 1625 Stool 100 Estimated Blood Loss 5 Other: Voiding Method Indwelling Catheter Indwelling Catheter Indwelling Catheter # Bowel Movements 1 ABP, PAP, CO, CI - Last Documented Arterial Blood Pressure 121/54 - Labs CBC & Chem 7: 02/08/24 05:40 02/08/24 05:40 Labs: Abnormal Lab Results - Last 24 Hours (Table) 02/07/24 02/07/24 02/07/24 Range/Units 04:15 05:34 05:34 WBC 12.1 H (3.8-10.6) k/uL RBC 3.30 L (4.30-5.90) m/uL Hgb 11.0 L (13.0-17.5) gm/dL Hct 34.5 L (39.0-53.0) % MCV 104.7 H (80.0-100.0) fL RDW 16.0 H (11.5-15.5) % Neutrophils # 10.2 H (1.3-7.7) k/uL ABG pH 7.48 H (7.35-7.45) ABG pCO2 49 H (35-45) mmHg ABG HCO3 36 H (21-25) mmol/L ABG Total CO2 37 H (19-24) mmol/L ABG O2 Saturation 97.7 H (94-97) % Hemoglobin 11.2 L (13.0-17.5) gm/dL Carbon Dioxide 32 H (22-30) mmol/L Creatinine 0.35 L (0.66-1.25) mg/dL Glucose 125 H (74-99) mg/dL POC Glucose (mg/dL) (70-110) mg/dL 02/07/24 02/07/24 Range/Units 05:53 11:53 WBC (3.8-10.6) k/uL RBC (4.30-5.90) m/uL Hgb (13.0-17.5) gm/dL Hct (39.0-53.0) % MCV (80.0-100.0) fL RDW (11.5-15.5) % Neutrophils # (1.3-7.7) k/uL ABG pH (7.35-7.45) ABG pCO2 (35-45) mmHg ABG HCO3 (21-25) mmol/L ABG Total CO2 (19-24) mmol/L ABG O2 Saturation (94-97) % Hemoglobin (13.0-17.5) gm/dL Carbon Dioxide (22-30) mmol/L Creatinine (0.66-1.25) mg/dL Glucose (74-99) mg/dL POC Glucose (mg/dL) 116 H 122 H (70-110) mg/dL Assessment and Plan Assessment: 68 yo m S/P trach/peg ok for meds today start trickle feeds tomorrow Time with Patient: Less than 30
--- NOTE | 2024-02-07 15:20 | XR ---
EXAMINATION TYPE: XR abdomen 1V DATE OF EXAM: 02/07/2024 3:09 PM COMPARISON: 04/22/2016 CLINICAL INDICATION: Male, 68 years old with history of follow up on fecal impaction; [facility] TECHNIQUE: One radiographic view of the abdomen was obtained. FINDINGS: PEG tube in the left upper quadrant. Directed Dixon catheter projecting over the pelvis. Th e bowel gas pattern is nonspecific without dilated loops of small or large bowel. . Fecal material an d gas are demonstrated throughout the colon and rectum. There is no evidence for organomegaly or pneumoperitoneum. The osseous structures are intact. No ab normal calcifications are present. IMPRESSION: No evidence for fecal impaction, nonspecific bowel gas pattern without radiographic evidence for acut e process. [facility], , 02/07/2024 3:18 PM
[2024-02-07 17:55] LABS: Glucose,Whole Blood 92 mg/dL (70-110)
--- NOTE | 2024-02-07 23:13 | P.PN ---
Subjective Progress Note Date: 02/07/24 Principal diagnosis: Reason for follow-up is sepsis possible aspiration pneumonia Patient is a 68-year-old male with a past medical history significant for COPD hypertension [place] osteoarthritis patient did have a history of necrotizing infection of the left lower extremity with initial admission to hospital mental status changes subsequently have worsening of his respiratory status requiring intubation and concern for possible aspiration pneumonia.Patient did have a EGD with evidence of esophagitis colonoscopy possibility of stercoral ulcer in the rectum On today's evaluation that is 02/07/2024,the patient continues to be afebrile patient is status post trach and PEG currently intubated through the trach FiO2 is stable at 30% patient is hemodynamically stable not requiring any pressor support no other changes reported by the nursing staff. The patient white count is 12.1 creatinine is 0.35 Objective - Vital Signs Vital signs: Vital Signs Temp 94.3 F L 02/07/24 08:00 Pulse 97 02/07/24 11:56 Resp 14 02/07/24 11:00 BP 127/84 02/07/24 11:00 Pulse Ox 96 02/07/24 11:00 FiO2 30 02/07/24 11:38 Intake & Output 02/06/24 02/07/24 02/07/24 18:59 06:59 18:59 Intake Total 1100 440 220 Output Total 2620 1945 1575 Balance -1520 -1505 -1355 Weight 81.5 kg Intake: IV 1100 440 220 0.9 @ 10 210 240 80 Dextrose 5%-0.45% NaCl 1, 240 200 40 000 ml @ 20 mls/hr IV . Q24H [facility] Rx#:[id number] Magnesium Sulfate-D5w Pmx 200 1 gm In Dextrose/Water 1 100ml.bag @ 100 mls/hr IVPB Q1H [facility] Rx#: [id number] Potassium Chloride 20 meq 100 In Sodium Chloride 0.9% 100 ml @ 55 mls/hr IVPB Q2H [facility] Rx#:[id number] cefTRIAXone 2 gm In 50 Sodium Chloride 0.9% 50 ml @ 100 mls/hr IVPB Q24HR@1600 [facility]I Rx#: [id number] Output: Urine 2515 1945 1575 Stool 100 Estimated Blood Loss 5 Other: Voiding Method Indwelling Catheter Indwelling Catheter Indwelling Catheter # Bowel Movements 1 ABP, PAP, CO, CI - Last Documented Arterial Blood Pressure 121/54 - Exam GENERAL DESCRIPTION: An elderly male intubated through the trach RESPIRATORY SYSTEM: Unlabored breathing , decreased breath sounds at bases HEART: S1 S2 regular rate and rhythm , ABDOMEN: Soft , no tenderness EXTREMITIES: No edema feet - Labs CBC & Chem 7: 02/07/24 05:34 02/07/24 05:34 Labs: Abnormal Lab Results - Last 24 Hours (Table) 02/07/24 02/07/24 02/07/24 Range/Units 04:15 05:34 05:34 WBC 12.1 H (3.8-10.6) k/uL RBC 3.30 L (4.30-5.90) m/uL Hgb 11.0 L (13.0-17.5) gm/dL Hct 34.5 L (39.0-53.0) % MCV 104.7 H (80.0-100.0) fL RDW 16.0 H (11.5-15.5) % Neutrophils # 10.2 H (1.3-7.7) k/uL ABG pH 7.48 H (7.35-7.45) ABG pCO2 49 H (35-45) mmHg ABG HCO3 36 H (21-25) mmol/L ABG Total CO2 37 H (19-24) mmol/L ABG O2 Saturation 97.7 H (94-97) % Hemoglobin 11.2 L (13.0-17.5) gm/dL Carbon Dioxide 32 H (22-30) mmol/L Creatinine 0.35 L (0.66-1.25) mg/dL Glucose 125 H (74-99) mg/dL POC Glucose (mg/dL) (70-110) mg/dL 02/07/24 02/07/24 Range/Units 05:53 11:53 WBC (3.8-10.6) k/uL RBC (4.30-5.90) m/uL Hgb (13.0-17.5) gm/dL Hct (39.0-53.0) % MCV (80.0-100.0) fL RDW (11.5-15.5) % Neutrophils # (1.3-7.7) k/uL ABG pH (7.35-7.45) ABG pCO2 (35-45) mmHg ABG HCO3 (21-25) mmol/L ABG Total CO2 (19-24) mmol/L ABG O2 Saturation (94-97) % Hemoglobin (13.0-17.5) gm/dL Carbon Dioxide (22-30) mmol/L Creatinine (0.66-1.25) mg/dL Glucose (74-99) mg/dL POC Glucose (mg/dL) 116 H 122 H (70-110) mg/dL Assessment and Plan (1) Aspiration pneumonia Current Visit: Yes Status: Acute Code(s): J69.0 - PNEUMONITIS DUE TO INHA LATION OF FOOD AND VOMIT SNOMED Code(s): 041377477 (2) Leukocytosis Current Visit: Yes Status: Acute Code(s): D72.829 - ELEVATED WHITE BLOOD CELL COUNT, UNSPECIFIED SNOMED Code(s): 134762617 (3) Allergy to multiple antibiotics Current Visit: No Status: Acute Code(s): Z88.1 - ALLERGY STATUS TO OTHER ANTIBIOTIC AGENTS SNOMED Code(s): 939645874 Plan: 1patient with an episode of sepsis in this patient who did have significant evaded white count patient also have mild hypotension and source is likely aspiration pneumonitis, sputum culture positive for Klebsiella and patient has received adequate by therapy for underlying Klebsiella pneumonia 2- patient CSF culture growing presumptive MRSA however CSF white count was 0 and glucose was normal at 72 more likely representing contamination rather than true infection 3patient subsequently did have issues with elevated white count source likely GI and the patient white count did respond to the cefepime followed by Rocephin and Flagyl and he is currently on day 8 out of 10 of the Rocephin and Flagyl and will complete his current course of antibiotic on February 09, 2024 discussed with the pharmacist who has put a stop date on the antibiotics Dictation was produced using [employer] dictation software. please excuse any grammatical, word or spelling errors. Time with Patient: Less than 30
[2024-02-07 23:32] LABS: Glucose,Whole Blood 87 mg/dL (70-110)
--- NOTE | 2024-02-08 01:40 | XR ---
EXAMINATION TYPE: XR chest 1V portable DATE OF EXAM: 02/08/2024 CLINICAL HISTORY: PICC line placement. TECHNIQUE: Single AP portable frontal view of the chest is obtained. COMPARISON: Chest x-ray from one day earlier FINDINGS: There is new right-sided PICC line terminating before the SVC. Interval removal of left-si ded central catheter. Stable tracheostomy tube. Persistent bibasilar opacities. Cardiac silhouette size is stable and within normal limits. Osseous s tructures are intact. IMPRESSION: 1. The new Right-sided PICC line terminates just before SVC. 2. Stable small bilateral pleural effusions and bibasilar acute infiltrate and/or atelectasis. [facility], , 02/08/2024 1:37 AM
--- NOTE | 2024-02-08 04:24 | P.PN ---
Subjective Progress Note Date: 02/07/24 This is a pleasant 68 years old male with past medical history of psychosis and multiple admission for suicidal ideation, hypertension, osteoarthritis Patient brought to the emergency room because he was found by his roommate on the floor, hard to wake up. When he came to emergency room he was answering questions but looks like he is continued to be confused Patient currently opens eyes and follows simple commands but not all every command. Also he answers some questions. However he looks confused significantly. He is disoriented to time place and person. He has no insight. But he denies any pain. No headache. No dizziness. Moves arms and legs. No tingling. Patient on admission was tachycardic and tachypneic but afebrile He had mild leukocytosis, high hemoglobin at 25 and sodium 156 and creatinine 1.7. Liver enzymes moderately elevated Lactic acid 4.0 Troponin is elevated 0.09 Urine drug screen is negative Serum alcohol less than 10. CT of the head and neck is negative for acute process for either side Chest x-ray is negative for acute process and I reviewed the chest x-rays and agree EKG showing sinus tachycardia at [address] depression 01/21 Patient remains confused, he open eyes to verbal stimuli, he can tell me his name and then he goes back to sleep No abnormal movement Patient sodium 1 significantly elevated at 155, he was given D5W at 75 mL/h, rep eat sodium this morning is still pending Patient looks dehydrated. Accounts Payable Bookkeeper evaluated the patient for higher troponin which is thought secondary to dehydration however he has some ST depression in the lateral leads, lead php developer recommended heparin drip x 48 hours as well as metoprolol and Lipit or which are ordered. Yesterday I discussed the case with the neurologist on-call, he recommended to hold on consult since the patient has severe metabolic abnormality. This morning patient remains confused with no significant improvement therefore we are going to reconsult neurology service. He has elevated hemoglobin and hematocrit, most likely secondary to dehydration, keep following levels till sodium level corrected and then reassess. Abdomen looks soft, patient denies abdominal pain or chest pain. 01/22 Patient was moved to the ICU yesterday because of concerns about inability to protect airway He was able to breathe okay this morning. He remains severely confused He remains on D5W at 150 mL/h, sodium down to 152 today Creatinine back to reference range Repeat CT of the brain is negative Heparin drip was discontinued and patient placed on subcutaneous heparin 01/23 Patient is becoming more encephalopathic, he is nonverbal, does not follow command does not answer questions. This is despite correction of his hyponatremia and other metabolic abnormalities like acute kidney injury. And there is concerned about ability to protect airway so far he does not need intervention but close monitoring in the ICU Today patient underwent lumbar puncture and results Showing RBC is elevated at 28, nucleated cells are 0. Glucose slightly elevated 72 and protein 106. Cultures pending Also patient has low-grade fever and is Amandeep concentrated sample of CBC improved except for WBC remains elevated about 15.1 K, neurology service recommended to consider ID team, Patient is also history of suicidal ideation however his urine drug screen on admission showed only marijuana Prognosis remains guarded 01/24 Patient windows 7 deployment lead desaturated down to 70s associated with brief period of rigidness and shakiness and his eyes were wide open, this episode happened twice and lasted for short time seconds to minutes. He had EEG initially done which was unremarkable another EEG is requested today, patient was started on IV Keppra 1000 mg Also ABG shows evidence of acute hypoxic hypercapnic respiratory failure, patient was unable to protect his airway and he got intubated today. In the meantime there is no abnormal movement currently. He is afebrile this morning. Last fever was on 01/22 and it was 100 degrees which is low-grade. Labs showing leukocytosis worse 21.7, hemoglobin 18, platelet count is 188. pH 7.1, pCO2 is high at 95. Oxygen with pO2 of 86 while on 15 L. Sodium 137, potassium 3.3. Liver enzymes not significantly elevated. CSF culture permanent results are still pending 01/25 Patient yesterday could not protect his airway and he was intubated and placed on mechanical ventilation. Pulmonary/critical care team following closely and help with vent management. No seizure-like activity or abnormal movements noted. EEG done and reviewed. Neurologist on the case. Patient is currently on IV Keppra 1000 twice daily Also patient started on IV vancomycin and cefepime per ID team recommendation for suspected sepsis. Cultures are pending. Patient has no fever for the last 3 days. Leukocyte count today still mildly elevated at 16 but coming down from 21 yesterday. Electrolytes are improving. Patient remains in critical condition. 01/26 Patient remains in the ICU intubated and on mechanical ventilation He is currently covered with IV vancomycin and cefepime, for suspected pneumon ia. Nasal culture growing MRSA and sputum culture growing Klebsiella pneumonia 01/27 Patient remains intubated and on mechanical ventilation without sedation. No abnormal movements noted He is afebrile and blood pressure holding well. WBCs 11. He still somewhat acidotic with pH 7.3 and pCO2 high 61. BMP and liver enzymes were unremarkable. Nasal screen is positive for MRSA sputum Culture is positive for Klebsiella CSF culture from pulmonary suction presumptive MRSA. However suspicion of CLEAN UP PERSON infection is very low as CSF sample showing no leukocytes, 0 WBC. Also sugar is high rather than low which goes against infection. And also his neck was supple on examined him on admission. I discussed with the staff the CSF sample waited more than 5 hours before it goes to the lab And chest x-ray showing significant pneumonia in the left lower lobe Currently he is on cefepime also on IV Keppra 02/02 I am assuming the care of the patient today. He remains in the ICU intubated and with no much improvement in his encephalopathy The exact cause of his encephalopathy is unknown. Pulmonary team on the case. Patient may benefit from tracheostomy and PEG tube replacement. Pending legal guardianship determination on Monday He keeps covered with antibiotic currently with ceftriaxone and [facility] Surgery team were following the case for recent GI bleed. Currently looks stable 02/03 Patient on mechanical ventilation, is currently intubated. Still severely encephalopathic Afebrile and vital stable No leukocytosis and hemoglobin 10.2. BMP is unremarkable. Patient will be evaluated for tracheostomy and PEG tube placement after legal guardianship determination 02/05/2024 Patient is seen in follow-up continues in the ICU on mechanical ventilation and difficult weaning planning for PEG and trach tentatively 02/06/2024. Patient was awaiting an appointed guardian and social work following going to court today. Discussed also possible comfort measures. Patient continues on mechanical ventilation and continuing to undergo neurological workup. Repeat CT brain is ordered and pending. 02/06/2024 Patient is seen in follow-up today and has received a public guardian and remains full code at this time with plans on receiving PEG tube and tracheostomy today with general surgery. Patient will require 3 attempts at weaning off the vent prior to select specialties accepting the patient. Neurology following as patient remains minimally responsive and follow-up CT was negative and patient is off sedation. 02/07/2024 Patient is seen in follow-up today with multiple consultations following maintained in the ICU status post PEG and trach placement with general surgery. Patient to initiate tube feedings today per dietary recommendations and will monitor for tolerance. Patient's abdomen appeared distended and abdominal x-ray done showing no acute process. Patient is maintained on scheduled bowel movement and has had 3 bowel movements today. Continue as needed bowel regimen. Plan is for possibly select specialties in the next few days and will require trials and failures of weaning from ventilation Review of systems: Unable to obtain as patient is on mechanical ventilation and unresponsive Physical exam: GENERAL: The patient is intubated on mechanical ventilation, ill-appearing, elderly appearing HEENT: Pupils are round and equally reacting to light. EOMI. No scleral icterus. No conjunctival pallor. Normocephalic, atraumatic. No pharyngeal erythema. No thyromegaly. CARDIOVASCULAR: S1 and S2 muffled PULMONARY: Diminished breath sounds bilaterally with some bronchial congestion otherwise chest is clear to auscultation, no wheezing , no crackles. ABDOMEN: Soft, obese, nontender, nondistended, normoactive bowel sounds. No palpable organomegaly. MUSCULOSKELETAL: No joint swelling or deformity. EXTREMITIES: No cyanosis, clubbing, or pedal edema. NEUROLOGICAL: Gross neurological examination did not reveal any focal deficits. Could not completely assess as patient is on mechanical ventilation and unresponsive SKIN: No rashes. no petechiae. Edematous Assessment: Severe encephalopathy, could be multifactorial. Metabolic/toxic encephalopathy contributing, however no specified cause was found for his encephalopathy Acute hypoxic hypercapnic respiratory failure, patient unable to protect airway secondary to above, s/p intubation and mechanical ventilation with inability to wean, Status post tracheostomy and PEG tube placement 02/06/2024 Suspected seizure-like activity on 01/24 x 2 Suspected sepsis. Secondary to pneumonia Acute GI bleed, improved Hypernatremia. Resolved Non-STEMI with elevated troponin with some EKG changes but patient denies chest pain. Acute kidney injury, improving History of depression, psychosis and suicidal ideation Severe dehydration and hypovolemia History of chronic left leg wound, currently wound is closed, no evidence of cellulitis but mild deformity in the muscles of the left leg Elevated lactic acid GI prophylaxis DVT prophylaxis Full code Plan: Continue with ICU management. Patient with multiple consultations following including continuing undergoing neurological workup. General surgery following as patient has unable to wean from mechanical ventilation and is status post PEG and trach placement. Tube feedings to be initiated Infectious disease following and maintained on antibiotics Social work following and has obtained legal guardianship and will await finalized report on that to discuss treatment plan moving forward and/or poss ible comfort measures Currently remains full code and underwent PEG and trach placement. Patient will require 3 attempts at weaning to be considered for select specialties. Patient will require extensive rehab and continuous respiratory care. Due to multiple complex medical issues, overall prognosis is extremely poor and guarded at this time The impression and plan of care has been dictated by Carol Toney, Nurse Practitioner as directed. Dr. Debi MD I have performed a history and examination and MDM of this patient, discussed the same with the dictator, and agree with the dictator's assessment and plan as written ,documented as a scribe. Based on total visit time, I have performed more than 50% of the visit. Objective - Vital Signs Vital signs: Vital Signs Temp 98.5 F 02/08/24 04:00 Pulse 73 02/08/24 04:03 Resp 16 02/08/24 04:00 BP 139/87 02/08/24 04:00 Pulse Ox 97 02/08/24 04:00 FiO2 30 02/08/24 04:00 Intake & Output 02/07/24 02/07/24 02/08/24 06:59 18:59 06:59 Intake Total 440 380 200 Output Total 1945 1780 1405 Balance -1505 -1400 -1205 Weight 81.5 kg 81.5 kg 78.2 kg Intake: IV 440 380 200 0.9 @ 10 240 190 200 Dextrose 5%-0.45% NaCl 1, 200 40 000 ml @ 20 mls/hr IV . Q24H [facility] Rx#:[id number] Potassium Chloride 20 meq 100 In Sodium Chloride 0.9% 100 ml @ 55 mls/hr IVPB Q2H [facility] Rx#:[id number] cefTRIAXone 2 gm In 50 Sodium Chloride 0.9% 50 ml @ 100 mls/hr IVPB Q24HR@1600 [facility] Rx#: [id number] Output: Urine 1945 1780 1405 Other: Voiding Method Indwelling Catheter Indwelling Catheter Indwelling Catheter ABP, PAP, CO, CI - Last Documented Arterial Blood Pressure 121/54 - Labs CBC & Chem 7: 02/07/24 05:34 02/07/24 05:34 Labs: Abnormal Lab Results - Last 24 Hours (Table) 02/07/24 02/07/24 02/07/24 Range/Units 04:15 05:34 05:34 WBC 12.1 H (3.8-10.6) k/uL RBC 3.30 L (4.30-5.90) m/uL Hgb 11.0 L (13.0-17.5) gm/dL Hct 34.5 L (39.0-53.0) % MCV 104.7 H (80.0-100.0) fL RDW 16.0 H (11.5-15.5) % Neutrophils # 10.2 H (1.3-7.7) k/uL ABG pH 7.48 H (7.35-7.45) ABG pCO2 49 H (35-45) mmHg ABG HCO3 36 H (21-25) mmol/L ABG Total CO2 37 H (19-24) mmol/L ABG O2 Saturation 97.7 H (94-97) % Hemoglobin 11.2 L (13.0-17.5) gm/dL Carbon Dioxide 32 H (22-30) mmol/L Creatinine 0.35 L (0.66-1.25) mg/dL Glucose 125 H (74-99) mg/dL POC Glucose (mg/dL) (70-110) mg/dL 02/07/24 02/07/24 Range/Units 05:53 11:53 WBC (3.8-10.6) k/uL RBC (4.30-5.90) m/uL Hgb (13.0-17.5) gm/dL Hct (39.0-53.0) % MCV (80.0-100.0) fL RDW (11.5-15.5) % Neutrophils # (1.3-7.7) k/uL ABG pH (7.35-7.45) ABG pCO2 (35-45) mmHg ABG HCO3 (21-25) mmol/L ABG Total CO2 (19-24) mmol/L ABG O2 Saturation (94-97) % Hemoglobin (13.0-17.5) gm/dL Carbon Dioxide (22-30) mmol/L Creatinine (0.66-1.25) mg/dL Glucose (74-99) mg/dL POC Glucose (mg/dL) 116 H 122 H (70-110) mg/dL
[2024-02-08 04:40] LABS: ABG Base Excess 13.3 mmol/L; ABG HCO3 38 mmol/L (21-25); ABG Oxygen Saturation 98.1 % (94-97); ABG PCO2 50 mmHg (35-45); ABG PH 7.49 (7.35-7.45); ABG PO2 94 mmHg (83-108); ABG TCO2 40 mmol/L (19-24); Allen Test Performed? Yes
[2024-02-08 06:13] LABS: Glucose,Whole Blood 95 mg/dL (70-110)
[2024-02-08 06:46] LABS: Anisocytosis Slight; Basophils % (A) 0 %; Eosinophils # (A) 0.1 k/uL (0-0.7); Eosinophils % (A) 1 %; HCT 34.9 % (39.0-53.0); HGB 11.1 gm/dL (13.0-17.5); Hypochromasia Moderate; Lymphocytes % (A) 12 %; MCH 33.3 pg (25.0-35.0); MCHC 31.8 g/dL (31.0-37.0); MCV 104.8 fL (80.0-100.0); Macrocytosis Moderate; Mean Platelet Volume 8.8; Monocytes # (A) 0.5 k/uL (0-1.0); Monocytes % (A) 6 %; Neutrophils # (A) 6.6 k/uL (1.3-7.7); Neutrophils % (A) 79 %; Platelet Count 202 k/uL (150-450); RBC 3.33 m/uL (4.30-5.90); WBC 8.3 k/uL (3.8-10.6)
[2024-02-08 07:01] LABS: African American GFR (CKD) >90 (>60 ml/min/1.73 sqM); Anion Gap 3 mmol/L; Blood Urea Nitrogen 13 mg/dL (9-20); Calcium 8.8 mg/dL (8.4-10.2); Carbon Dioxide 36 mmol/L (22-30); Chloride 99 mmol/L (98-107); Glucose 91 mg/dL (74-99); Magnesium 1.6 mg/dL (1.6-2.3); Non-African American GFR(CKD) >90 (>60 ml/min/1.73 sqM); Potassium 3.7 mmol/L (3.5-5.1); Sodium 138 mmol/L (137-145)
[2024-02-08] MEDS: POTASSIUM BICARBONATE/CIT AC 20 MEQ TABLET.EFF NG-TUBE SCH (09:01)
[2024-02-08] MEDS: MAGNESIUM SULFATE-D5W PMX 1 GM in DEXTROSE/WATER 1 100ML.BAG IVPB SCH (09:02)
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
[2024-02-08 12:06] LABS: Glucose,Whole Blood 111 mg/dL (70-110)
--- NOTE | 2024-02-08 13:06 | P.PN ---
Subjective Progress Note Date: 02/08/24 Principal diagnosis: Reason for follow-up is sepsis possible aspiration pneumonia Patient is a 68-year-old male with a past medical history significant for COPD hypertension MA osteoarthritis patient did have a history of necrotizing infection of the left lower extremity with initial admission to hospital mental status changes subsequently have worsening of his respiratory status requiring intubation and concern for possible aspiration pneumonia.Patient did have a EGD with evidence of esophagitis colonoscopy possibility of stercoral ulcer in the rectum On today's evaluation that is 02/08/2024, patient continues to be afebrile, the patient remains to be intubated on the vent patient FiO2 is currently stable at 30% no significant purulent secretion through the ET diarrhea any change reported by the nursing staff. Patient white count is 8.3, creatinine 0.36 Objective - Vital Signs Vital signs: Vital Signs Temp 98.5 F 02/08/24 04:00 Pulse 80 02/08/24 11:18 Resp 15 02/08/24 07:00 BP 126/79 02/08/24 07:00 Pulse Ox 97 02/08/24 07:00 FiO2 30 02/08/24 11:09 Intake & Output 02/07/24 02/08/24 02/08/24 18:59 06:59 18:59 Intake Total 380 240 20 Output Total 1780 1520 30 Balance -1400 -1280 -10 Weight 81.5 kg 78.2 kg Intake: IV 380 240 20 0.9 @ 10 190 240 20 Dextrose 5%-0.45% NaCl 1, 40 000 ml @ 20 mls/hr IV . Q24H [facility] Rx#:[id number] Potassium Chloride 20 meq 100 In Sodium Chloride 0.9% 100 ml @ 55 mls/hr IVPB Q2H [facility] Rx#:[id number] cefTRIAXone 2 gm In 50 Sodium Chloride 0.9% 50 ml @ 100 mls/hr IVPB Q24HR@1600 [facility] Rx#: [id number] Output: Urine 1780 1520 30 Other: Voiding Method Indwelling Catheter Indwelling Catheter ABP, PAP, CO, CI - Last Documented Arterial Blood Pressure 121/54 - Exam GENERAL DESCRIPTION: An elderly male intubated through the trach RESPIRATORY SYSTEM: Unlabored breathing , decreased breath sounds at bases HEART: S1 S2 regular rate and rhythm , ABDOMEN: Soft , no tenderness EXTREMITIES: No edema feet - Labs CBC & Chem 7: 02/08/24 05:40 02/08/24 05:40 Labs: Abnormal Lab Results - Last 24 Hours (Table) 02/08/24 02/08/24 02/08/24 Range/Units 04:35 05:40 05:40 RBC 3.33 L (4.30-5.90) m/uL Hgb 11.1 L (13.0-17.5) gm/dL Hct 34.9 L (39.0-53.0) % MCV 104.8 H (80.0-100.0) fL RDW 16.0 H (11.5-15.5) % ABG pH 7.49 H (7.35-7.45) ABG pCO2 50 H (35-45) mmHg ABG HCO3 38 H (21-25) mmol/L ABG Total CO2 40 H (19-24) mmol/L ABG O2 Saturation 98.1 H (94-97) % Hemoglobin 10.8 L (13.0-17.5) gm/dL Carbon Dioxide 36 H (22-30) mmol/L Creatinine 0.36 L (0.66-1.25) mg/dL POC Glucose (mg/dL) (70-110) mg/dL 02/08/24 Range/Units 12:05 RBC (4.30-5.90) m/uL Hgb (13.0-17.5) gm/dL Hct (39.0-53.0) % MCV (80.0-100.0) fL RDW (11.5-15.5) % ABG pH (7.35-7.45) ABG pCO2 (35-45) mmHg ABG HCO3 (21-25) mmol/L ABG Total CO2 (19-24) mmol/L ABG O2 Saturation (94-97) % Hemoglobin (13.0-17.5) gm/dL Carbon Dioxide (22-30) mmol/L Creatinine (0.66-1.25) mg/dL POC Glucose (mg/dL) 111 H (70-110) mg/dL Assessment and Plan (1) Aspiration pneumonia Current Visit: Yes Status: Acute Code(s): J69.0 - PNEUMONITIS DUE TO INHALATION OF FOOD AND VOMIT SNOMED Code(s): 762217874 (2) Leukocytosis Current Visit: Yes Status: Acute Code(s): D72.829 - ELEVATED WHITE BLOOD CELL COUNT, UNSPECIFIED SNOMED Code(s): 354593719 (3) Allergy to multiple antibiotics Current Visit: No Status: Acute Code(s): Z88.1 - ALLERGY STATUS TO OTHER ANTIBIOTIC AGENTS SNOMED Code(s): 455016243 Plan: 1patient with an episode of sepsis in this patient who did have significant evaded white count patient also have mild hypotension and source is likely aspiration pneumonitis, sputum culture positive for Klebsiella and patient has received adequate by therapy for underlying Klebsiella pneumonia 2- patient CSF culture growing presumptive MRSA however CSF white count was 0 and glucose was normal at 72 more likely representing contamination rather than true infection 3patient subsequently did have issues with elevated white count source likely GI and the patient white count did respond to the cefepime followed by Rocephin and Flagyl, patient white count is currently normal and patient is on day 9 out of 10 of the Rocephin and Flagyl Dictation was produced using [employer] dictation software. please excuse any grammatical, word or spelling errors. Time with Patient: Less than 30
--- NOTE | 2024-02-08 15:37 | P.PN ---
Subjective Progress Note Date: 02/08/24 CHIEF COMPLAINT: Aspiration pneumonia HISTORY OF PRESENT ILLNESS: Patient remains in the ICU on mechanical ventilation. Patient is status post tracheostomy and PEG tube placement on 02/06/24. Patient is status post EGD and colonoscopy with GI service on 01/31. Results had shown mild distal esophagitis no active bleed and colonoscopy had reported old blood in the left colon and a large amount of solid stool that was impacted in the rectum. Has had multiple bowel movements. Abdominal x-ray completed reported no evidence for fecal impaction. Last bowel movement was yesterday, 02/06. WBC is down from 12-8.38 Hgb 11.1 PHYSICAL EXAM: VITAL SIGNS: Reviewed. GENERAL: no acute distress. HEENT: Tracheostomy site is intact. No drainage. Tracheostomy opening is large ABDOMEN: Soft. Nondistended. Nontender. Peg tube site clean dry and intact NEUROLOGIC: Intubated and sedated ASSESSMENT: 1. Acute lower GI bleed status post EGD and colonoscopy 2. Fecal impaction resolved 3. Aspiration pneumonia PLAN: -Surgeon to place sutures at tracheostomy site -Tube feeds to be started per dietitian recommendations today -Discontinue daily suppository Physician Metrology Engineer note has been reviewed by physician. Signing provider agrees with the documented findings, assessment, and plan of care. Attestation Patient seen and examined at bedside. Did have some cuff leak that was resolved yesterday. Sutures placed at the superior tracheostomy incision site to decrease any further leak. Fecal impactions resolved. Hold off on any bowel regimen as patient has had continued significant bowel output. Nettie Clement, Objective - Vital Signs Vital signs: Vital Signs Temp 98.5 F 02/08/24 04:00 Pulse 73 02/08/24 15:03 Resp 15 02/08/24 07:00 BP 126/79 02/08/24 07:00 Pulse Ox 97 02/08/24 07:00 FiO2 30 02/08/24 14:55 Intake & Output 02/07/24 02/08/24 02/08/24 18:59 06:59 18:59 Intake Total 380 240 20 Output Total 1780 1520 30 Balance -1400 -1280 -10 Weight 81.5 kg 78.2 kg Intake: IV 380 240 20 0.9 @ 10 190 240 20 Dextrose 5%-0.45% NaCl 1, 40 000 ml @ 20 mls/hr IV . Q24H [facility] Rx#:[id number] Potassium Chloride 20 meq 100 In Sodium Chloride 0.9% 100 ml @ 55 mls/hr IVPB Q2H [facility] Rx#:[id number] cefTRIAXone 2 gm In 50 Sodium Chloride 0.9% 50 ml @ 100 mls/hr IVPB Q24HR@1600 [facility] Rx#: [id number] Output: Urine 1780 1520 30 Other: Voiding Method Indwelling Catheter Indwelling Catheter ABP, PAP, CO, CI - Last Documented Arterial Blood Pressure 121/54 - Labs CBC & Chem 7: 02/08/24 05:40 02/08/24 05:40 Labs: Abnormal Lab Results - Last 24 Hours (Table) 02/08/24 02/08/24 02/08/24 Range/Units 04:35 05:40 05:40 RBC 3.33 L (4.30-5.90) m/uL Hgb 11.1 L (13.0-17.5) gm/dL Hct 34.9 L (39.0-53.0) % MCV 104.8 H (80.0-100.0) fL RDW 16.0 H (11.5-15.5) % ABG pH 7.49 H (7.35-7.45) ABG pCO2 50 H (35-45) mmHg ABG HCO3 38 H (21-25) mmol/L ABG Total CO2 40 H (19-24) mmol/L ABG O2 Saturation 98.1 H (94-97) % Hemoglobin 10.8 L (13.0-17.5) gm/dL Carbon Dioxide 36 H (22-30) mmol/L Creatinine 0.36 L (0.66-1.25) mg/dL POC Glucose (mg/dL) (70-110) mg/dL 02/08/24 Range/Units 12:05 RBC (4.30-5.90) m/uL Hgb (13.0-17.5) gm/dL Hct (39.0-53.0) % MCV (80.0-100.0) fL RDW (11.5-15.5) % ABG pH (7.35-7.45) ABG pCO2 (35-45) mmHg ABG HCO3 (21-25) mmol/L ABG Total CO2 (19-24) mmol/L ABG O2 Saturation (94-97) % Hemoglobin (13.0-17.5) gm/dL Carbon Dioxide (22-30) mmol/L Creatinine (0.66-1.25) mg/dL POC Glucose (mg/dL) 111 H (70-110) mg/dL
[2024-02-08 17:43] LABS: Glucose,Whole Blood 86 mg/dL (70-110)
[2024-02-08] MEDS: INSULIN ASPART (NovoLOG) 100 UNIT/ML VIAL SQ SCH (17:46)
--- NOTE | 2024-02-08 23:47 | EEG ---
ELECTROENCEPHALOGRAM REPORT PREAMBLE: This is a 68-year-old male with persistent encephalopathy. EEG FINDINGS: This is a 21-channel digital EEG recorded with video component, utilizing 10/20 international system with referential and bipolar montages. Background consists of poorly developed and regulated, diffuse mixed frequencies of 4 to 5 hertz theta with 3 hertz delta slowing diffusely in bihemispheric region. Background does not seem to be reactive to manual eye opening or closing, or to photic stimulation. Different stages of sleep were not seen. No focal or generalized epileptiform activity was seen. No electrographic seizure was recorded. IMPRESSION: This is an abnormal EEG due to background slowing of severe degree. This is suggestive of generalized cerebral dysfunction as can be seen with toxic metabolic encephalopathy or related to diffuse structural brain abnormality. Clinical correlation is recommended. No epileptiform activity was seen. When compared to the EEG from 01/25/2024, the background has improved. MMTARA / SAULN: [id number] /
[2024-02-09 00:09] LABS: Glucose,Whole Blood 76 mg/dL (70-110)
--- NOTE | 2024-02-09 05:22 | P.PN ---
Subjective Progress Note Date: 02/08/24 This is a pleasant 68 years old male with past medical history of psychosis and multiple admission for suicidal ideation, hypertension, osteoarthritis Patient brought to the emergency room because he was found by his roommate on the floor, hard to wake up. When he came to emergency room he was answering questions but looks like he is continued to be confused Patient currently opens eyes and follows simple commands but not all every command. Also he answers some questions. However he looks confused significantly. He is disoriented to time place and person. He has no insight. But he denies any pain. No headache. No dizziness. Moves arms and legs. No tingling. Patient on admission was tachycardic and tachypneic but afebrile He had mild leukocytosis, high hemoglobin at 25 and sodium 156 and creatinine 1.7. Liver enzymes moderately elevated Lactic acid 4.0 Troponin is elevated 0.09 Urine drug screen is negative Serum alcohol less than 10. CT of the head and neck is negative for acute process for either side Chest x-ray is negative for acute process and I reviewed the chest x-rays and agree EKG showing sinus tachycardia at [address] depression 01/21 Patient remains confused, he open eyes to verbal stimuli, he can tell me his name and then he goes back to sleep No abnormal movement Patient sodium 1 significantly elevated at 155, he was given D5W at 75 mL/h, rep eat sodium this morning is still pending Patient looks dehydrated. City Planning Aide evaluated the patient for higher troponin which is thought secondary to dehydration however he has some ST depression in the lateral leads, explosives mixer operator recommended heparin drip x 48 hours as well as metoprolol and Lipit or which are ordered. Yesterday I discussed the case with the neurologist on-call, he recommended to hold on consult since the patient has severe metabolic abnormality. This morning patient remains confused with no significant improvement therefore we are going to reconsult neurology service. He has elevated hemoglobin and hematocrit, most likely secondary to dehydration, keep following levels till sodium level corrected and then reassess. Abdomen looks soft, patient denies abdominal pain or chest pain. 01/22 Patient was moved to the ICU yesterday because of concerns about inability to protect airway He was able to breathe okay this morning. He remains severely confused He remains on D5W at 150 mL/h, sodium down to 152 today Creatinine back to reference range Repeat CT of the brain is negative Heparin drip was discontinued and patient placed on subcutaneous heparin 01/23 Patient is becoming more encephalopathic, he is nonverbal, does not follow command does not answer questions. This is despite correction of his hyponatremia and other metabolic abnormalities like acute kidney injury. And there is concerned about ability to protect airway so far he does not need intervention but close monitoring in the ICU Today patient underwent lumbar puncture and results Showing RBC is elevated at 28, nucleated cells are 0. Glucose slightly elevated 72 and protein 106. 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 He had EEG initially done which was unremarkable another EEG is requested today, patient was started on IV Keppra 1000 mg Also ABG shows evidence of acute hypoxic hypercapnic respiratory failure, patient was unable to protect his airway and he got intubated today. In the meantime there is no abnormal movement currently. He is afebrile this morning. Last fever was on 01/22 and it was 100 degrees which is low-grade. Labs showing leukocytosis worse 21.7, hemoglobin 18, platelet count is 188. pH 7.1, pCO2 is high at 95. Oxygen with pO2 of 86 while on 15 L. Sodium 137, potassium 3.3. Liver enzymes not significantly elevated. CSF culture permanent results are still pending 01/25 Patient yesterday could not protect his airway and he was intubated and placed on mechanical ventilation. Pulmonary/critical care team following closely and help with vent management. No seizure-like activity or abnormal movements noted. EEG done and reviewed. Neurologist on the case. Patient is currently on IV Keppra 1000 twice daily Also patient started on IV vancomycin and cefepime per ID team recommendation for suspected sepsis. Cultures are pending. Patient has no fever for the last 3 days. Leukocyte count today still mildly elevated at 16 but coming down from 21 yesterday. Electrolytes are improving. Patient remains in critical condition. 01/26 Patient remains in the ICU intubated and on mechanical ventilation He is currently covered with IV vancomycin and cefepime, for suspected pneumon ia. Nasal culture growing MRSA and sputum culture growing Klebsiella pneumonia 01/27 Patient remains intubated and on mechanical ventilation without sedation. No abnormal movements noted He is afebrile and blood pressure holding well. WBCs 11. He still somewhat acidotic with pH 7.3 and pCO2 high 61. BMP and liver enzymes were unremarkable. Nasal screen is positive for MRSA sputum Culture is positive for Klebsiella CSF culture from pulmonary suction presumptive MRSA. However suspicion of CHECKER IN infection is very low as CSF sample showing no leukocytes, 0 WBC. Also sugar is high rather than low which goes against infection. And also his neck was supple on examined him on admission. I discussed with the staff the CSF sample waited more than 5 hours before it goes to the lab And chest x-ray showing significant pneumonia in the left lower lobe Currently he is on cefepime also on IV Keppra 02/02 I am assuming the care of the patient today. He remains in the ICU intubated and with no much improvement in his encephalopathy The exact cause of his encephalopathy is unknown. Pulmonary team on the case. Patient may benefit from tracheostomy and PEG tube replacement. Pending legal guardianship determination on Monday He keeps covered with antibiotic currently with ceftriaxone and [facility] Surgery team were following the case for recent GI bleed. Currently looks stable 02/03 Patient on mechanical ventilation, is currently intubated. Still severely encephalopathic Afebrile and vital stable No leukocytosis and hemoglobin 10.2. BMP is unremarkable. Patient will be evaluated for tracheostomy and PEG tube placement after legal guardianship determination 02/05/2024 Patient is seen in follow-up continues in the ICU on mechanical ventilation and difficult weaning planning for PEG and trach tentatively 02/06/2024. Patient was awaiting an appointed guardian and social work following going to court today. Discussed also possible comfort measures. Patient continues on mechanical ventilation and continuing to undergo neurological workup. Repeat CT brain is ordered and pending. 02/06/2024 Patient is seen in follow-up today and has received a public guardian and remains full code at this time with plans on receiving PEG tube and tracheostomy today with general surgery. Patient will require 3 attempts at weaning off the vent prior to select specialties accepting the patient. Neurology following as patient remains minimally responsive and follow-up CT was negative and patient is off sedation. 02/07/2024 Patient is seen in follow-up today with multiple consultations following maintained in the ICU status post PEG and trach placement with general surgery. Patient to initiate tube feedings today per dietary recommendations and will monitor for tolerance. Patient's abdomen appeared distended and abdominal x-ray done showing no acute process. Patient is maintained on scheduled bowel movement and has had 3 bowel movements today. Continue as needed bowel regimen. Plan is for possibly select specialties in the next few days and will require trials and failures of weaning from ventilation 02/08/2024 Patient is seen in follow-up today has received a tracheostomy and PEG tube. Tube feedings are to start. Per nursing staff when attempting to wean patient desats quickly becomes extremely tachycardic and hypoxic. General surgery following and will be initiating on tube feedings and will continue with hoffman pportive care. Patient undergoing neurological workup and scheduled to undergo EEG. Patient does have a significant past medical history of extensive right lower extremity wound although appears stable at this time. Review of systems: Unable to obtain as patient is on mechanical ventilation and unresponsive Physical exam: GENERAL: The patient is intubated on mechanical ventilation, ill-appearing, elderly appearing HEENT: Pupils are round and equally reacting to light. EOMI. No scleral icterus. No conjunctival pallor. Normocephalic, atraumatic. No pharyngeal erythema. No thyromegaly. Tracheostomy noted CARDIOVASCULAR: S1 and S2 muffled PULMONARY: Diminished breath sounds bilaterally with some bronchial congestion otherwise chest is clear to auscultation, no wheezing , no crackles. ABDOMEN: Soft, obese, nontender, nondistended, normoactive bowel sounds. No palpable organomegaly. PEG tube noted MUSCULOSKELETAL: No joint swelling or deformity. EXTREMITIES: No cyanosis, clubbing, or pedal edema. NEUROLOGICAL: Gross neurological examination did not reveal any focal deficits. Could not completely assess as patient is on mechanical ventilation and unresponsive SKIN: No rashes. no petechiae. Edematous Assessment: Severe encephalopathy, could be multifactorial. Metabolic/toxic encephalopathy contributing, however no specified cause was found for his encephalopathy Acute hypoxic hypercapnic respiratory failure, patient unable to protect airway secondary to above, s/p intubation and mechanical ventilation with inability to wean, Status post tracheostomy and PEG tube placement 02/06/2024, tube feedings have been initiated Suspected seizure-like activity on 01/24 x 2 Suspected sepsis. Secondary to pneumonia Acute GI bleed, improved Hypernatremia. Resolved Non-STEMI with elevated troponin with some EKG changes but patient denies chest pain. Acute kidney injury, improving History of depression, psychosis and suicidal ideation Severe dehydration and hypovolemia History of chronic left leg wound, currently wound is closed, no evidence of cellulitis but mild deformity in the muscles of the left leg Elevated lactic acid GI prophylaxis DVT prophylaxis Full code Plan: Continue with ICU management. Patient with multiple consultations following including continuing undergoing neurological workup. General surgery following as patient has unable to wean from mechanical ventilation and is status post PEG and trach placement. Tube feedings to be initiated. General surgery to reevaluate tracheostomy site as it may need some sutures Infectious disease following and maintained on antibiotics Social work following and has obtained legal guardianship and will await finalized report on that to discuss treatment plan moving forward and/or possible comfort measures Currently remains full code and underwent PEG and trach placement. Patient will require 3 attempts at weaning to be considered for select specialties. Patient will require extensive rehab and continuous respiratory care. Due to multiple complex medical issues, overall prognosis is extremely poor and guarded at this time The impression and plan of care has been dictated by Carol Toney, Nurse Practitioner as directed. Dr. Debi MD I have performed a history and examination and MDM of this patient, discussed the same with the dictator, and agree with the dictator's assessment and plan as written ,documented as a scribe. Based on total visit time, I have performed more than 50% of the visit. Objective - Vital Signs Vital signs: Vital Signs Temp 98.5 F 02/08/24 04:00 Pulse 87 02/08/24 07:47 Resp 15 02/08/24 07:00 BP 126/79 02/08/24 07:00 Pulse Ox 97 02/08/24 07:00 FiO2 30 02/08/24 07:39 Intake & Output 02/07/24 02/08/24 02/08/24 18:59 06:59 18:59 Intake Total 380 240 20 Output Total 1780 1520 30 Balance -1400 -1280 -10 Weight 81.5 kg 78.2 kg Intake: IV 380 240 20 0.9 @ 10 190 240 20 Dextrose 5%-0.45% NaCl 1, 40 000 ml @ 20 mls/hr IV . Q24H [facility] Rx#:[id number] Potassium Chloride 20 meq 100 In Sodium Chloride 0.9% 100 ml @ 55 mls/hr IVPB Q2H [facility] Rx#:[id number] cefTRIAXone 2 gm In 50 Sodium Chloride 0.9% 50 ml @ 100 mls/hr IVPB Q24HR@1600 [facility]I Rx#: [id number] Output: Urine 1780 1520 30 Other: Voiding Method Indwelling Catheter Indwelling Catheter ABP, PAP, CO, CI - Last Documented Arterial Blood Pressure 121/54 - Labs CBC & Chem 7: 02/08/24 05:40 02/08/24 05:40 Labs: Abnormal Lab Results - Last 24 Hours (Table) 02/07/24 02/08/24 02/08/24 Range/Units 11:53 04:35 05:40 RBC (4.30-5.90) m/uL Hgb (13.0-17.5) gm/dL Hct (39.0-53.0) % MCV (80.0-100.0) fL RDW (11.5-15.5) % ABG pH 7.49 H (7.35-7.45) ABG pCO2 50 H (35-45) mmHg ABG HCO3 38 H (21-25) mmol/L ABG Total CO2 40 H (19-24) mmol/L ABG O2 Saturation 98.1 H (94-97) % Hemoglobin 10.8 L (13.0-17.5) gm/dL Carbon Dioxide 36 H (22-30) mmol/L Creatinine 0.36 L (0.66-1.25) mg/dL POC Glucose (mg/dL) 122 H (70-110) mg/dL 02/08/24 Range/Units 05:40 RBC 3.33 L (4.30-5.90) m/uL Hgb 11.1 L (13.0-17.5) gm/dL Hct 34.9 L (39.0-53.0) % MCV 104.8 H (80.0-100.0) fL RDW 16.0 H (11.5-15.5) % ABG pH (7.35-7.45) ABG pCO2 (35-45) mmHg ABG HCO3 (21-25) mmol/L ABG Total CO2 (19-24) mmol/L ABG O2 Saturation (94-97) % Hemoglobin (13.0-17.5) gm/dL Carbon Dioxide (22-30) mmol/L Creatinine (0.66-1.25) mg/dL POC Glucose (mg/dL) (70-110) mg/dL
[2024-02-09 05:25] LABS: ABG Base Excess 12.5 mmol/L; ABG HCO3 37 mmol/L (21-25); ABG Oxygen Saturation 93.9 % (94-97); ABG PCO2 46 mmHg (35-45); ABG PH 7.51 (7.35-7.45); ABG PO2 67 mmHg (83-108); ABG TCO2 39 mmol/L (19-24); Allen Test Performed? Yes
[2024-02-09 06:16] LABS: Glucose,Whole Blood 78 mg/dL (70-110)
[2024-02-09 10:09] LABS: Basophils % (A) 0 %; Eosinophils # (A) 0.1 k/uL (0-0.7); Eosinophils % (A) 0 %; HCT 39.3 % (39.0-53.0); HGB 12.5 gm/dL (13.0-17.5); Hypochromasia Slight; Lymphocytes # (A) 0.6 k/uL (1.0-4.8); Lymphocytes % (A) 4 %; MCH 33.2 pg (25.0-35.0); MCHC 31.8 g/dL (31.0-37.0); MCV 104.6 fL (80.0-100.0); Macrocytosis Moderate; Mean Platelet Volume 9.6; Monocytes # (A) 0.6 k/uL (0-1.0); Monocytes % (A) 4 %; Neutrophils # (A) 13.9 k/uL (1.3-7.7); Neutrophils % (A) 91 %; Platelet Count 259 k/uL (150-450); RBC 3.76 m/uL (4.30-5.90); RDW 15.9 % (11.5-15.5); WBC 15.2 k/uL (3.8-10.6)
[2024-02-09 10:42] LABS: African American GFR (CKD) >90 (>60 ml/min/1.73 sqM); Anion Gap 0 mmol/L; Blood Urea Nitrogen 12 mg/dL (9-20); Calcium 8.9 mg/dL (8.4-10.2); Carbon Dioxide 36 mmol/L (22-30); Chloride 101 mmol/L (98-107); Glucose 79 mg/dL (74-99); Non-African American GFR(CKD) >90 (>60 ml/min/1.73 sqM); Potassium 3.7 mmol/L (3.5-5.1); Sodium 137 mmol/L (137-145)
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
[2024-02-09 13:18] LABS: Glucose,Whole Blood 72 mg/dL (70-110)
--- NOTE | 2024-02-09 13:35 | P.PN ---
Subjective Progress Note Date: 02/09/24 CHIEF COMPLAINT: Aspiration pneumonia HISTORY OF PRESENT ILLNESS: Patient remains in the ICU on mechanical ventilation. Patient is status post tracheostomy and PEG tube placement on 02/06/24. Patient is status post EGD and colonoscopy with GI service on 01/31. Results had shown mild distal esophagitis no active bleed and colonoscopy had reported old blood in the left colon and a large amount of solid stool that was impacted in the rectum. Has had multiple bowel movements. Abdominal x-ray completed reported no evidence for fecal impaction. Last bowel movement was yesterday, 02/06. WBC elevated at 15.2 Hgb stable 12.5. Tube feeds started. To be currently at 10 mL/h PHYSICAL EXAM: VITAL SIGNS: Reviewed. GENERAL: no acute distress. HEENT: Tracheostomy site is intact. No drainage. Tracheostomy site with sutures ABDOMEN: Soft. Nondistended. Nontender. Peg tube site clean dry and intact ASSESSMENT: 1. Acute lower GI bleed status post EGD and colonoscopy 2. Fecal impaction resolved 3. Aspiration pneumonia PLAN: -Dietitian to continue to titrate tube feeds -Continue ICU management -Continue supportive care Physician Dog Food Shredder Operator note has been reviewed by physician. Signing provider agrees with the documented findings, assessment, and plan of care. Objective - Vital Signs Vital signs: Vital Signs Temp 98.4 F 02/09/24 12:00 Pulse 98 02/09/24 13:00 Resp 16 02/09/24 13:00 BP 106/73 02/09/24 13:00 Pulse Ox 94 L 02/09/24 13:00 FiO2 30 02/09/24 13:00 Intake & Output 02/08/24 02/09/24 02/09/24 18:59 06:59 18:59 Intake Total 240 440 210 Output Total 1590 1880 415 Balance -1350 -1440 -205 Weight 79.6 kg 79.6 kg Intake: IV 240 240 140 0.9 @ 10 240 240 140 Tube Feeding 110 70 Other 90 Output: Urine 1590 1880 415 Other: Voiding Method Indwelling Catheter Indwelling Catheter ABP, PAP, CO, CI - Last Documented Arterial Blood Pressure 121/54 - Labs CBC & Chem 7: 02/09/24 09:00 02/09/24 09:00 Labs: Abnormal Lab Results - Last 24 Hours (Table) 02/09/24 02/09/2424 Range/Units 05:20 09:00 09:00 WBC 15.2 H (3.8-10.6) k/uL RBC 3.76 L (4.30-5.90) m/uL Hgb 12.5 L (13.0-17.5) gm/dL MCV 104.6 H (80.0-100.0) fL RDW 15.9 H (11.5-15.5) % Neutrophils # 13.9 H (1.3-7.7) k/uL Lymphocytes # 0.6 L (1.0-4.8) k/uL ABG pH 7.51 H (7.35-7.45) ABG pCO2 46 H (35-45) mmHg ABG pO2 67 L (83-108) mmHg ABG HCO3 37 H (21-25) mmol/L ABG Total CO2 39 H (19-24) mmol/L ABG O2 Saturation 93.9 L (94-97) % Hemoglobin 12.4 L (13.0-17.5) gm/dL Carbon Dioxide 36 H (22-30) mmol/L Creatinine 0.45 L (0.66-1.25) mg/dL Microbiology - Last 24 Hours (Table) 01/24/24 10:35 Acid Fast Bacilli Smear - Preliminary Cerebral Spinal Fluid Acid Fast Bacilli Culture - Preliminary
[2024-02-09] MEDS ORDERED: Potassium Replacement Protocol 1 EACH MISC MISCELLANE PRN (15:07)
--- NOTE | 2024-02-09 15:23 | P.PN ---
Subjective Progress Note Date: 02/09/24 Principal diagnosis: Reason for follow-up is sepsis possible aspiration pneumonia Patient is a 68-year-old male with a past medical history significant for COPD hypertension SC osteoarthritis patient did have a history of necrotizing infection of the left lower extremity with initial admission to hospital mental status changes subsequently have worsening of his respiratory status requiring intubation and concern for possible aspiration pneumonia.Patient did have a EGD with evidence of esophagitis colonoscopy possibility of stercoral ulcer in the rectum On today's evaluation that is 02/09/2024, the patient continues to be afebrile, the patient is on ventilator through the trach FiO2 stable at 30% no significant purulent secretion through the ED the patient is hemodynamically stable not requiring any pressor support or any other changes reported by nursing staff. Patient white count is up to 15.2 creatinine is 0.45 Objective - Vital Signs Vital signs: Vital Signs Temp 98.4 F 02/09/24 12:00 Pulse 97 02/09/24 15:00 Resp 14 02/09/24 15:00 BP 129/81 02/09/24 15:00 Pulse Ox 94 L 02/09/24 14:00 FiO2 30 02/09/24 15:00 Intake & Output 02/08/24 02/09/24 02/09/24 18:59 06:59 18:59 Intake Total 240 440 270 Output Total 1590 1880 455 Balance -1350 -1440 -185 Weight 79.6 kg 79.6 kg Intake: IV 240 240 180 0.9 @ 10 240 240 180 Tube Feeding 110 90 Other 90 Output: Urine 1590 1880 455 Other: Voiding Method Indwelling Catheter Indwelling Catheter Indwelling Catheter ABP, PAP, CO, CI - Last Documented Arterial Blood Pressure 121/54 - Exam GENERAL DESCRIPTION: An elderly male intubated through the trach RESPIRATORY SYSTEM: Unlabored breathing , decreased breath sounds at bases HEART: S1 S2 regular rate and rhythm , ABDOMEN: Soft , no tenderness EXTREMITIES: No edema feet - Labs CBC & Chem 7: 02/09/24 09:00 02/09/24 09:00 Labs: Abnormal Lab Results - Last 24 Hours (Table) 02/09/24 02/09/24 02/09/24 Range/Units 05:20 09:00 09:00 WBC 15.2 H (3.8-10.6) k/uL RBC 3.76 L (4.30-5.90) m/uL Hgb 12.5 L (13.0-17.5) gm/dL MCV 104.6 H (80.0-100.0) fL RDW 15.9 H (11.5-15.5) % Neutrophils # 13.9 H (1.3-7.7) k/uL Lymphocytes # 0.6 L (1.0-4.8) k/uL ABG pH 7.51 H (7.35-7.45) ABG pCO2 46 H (35-45) mmHg ABG pO2 67 L (83-108) mmHg ABG HCO3 37 H (21-25) mmol/L ABG Total CO2 39 H (19-24) mmol/L ABG O2 Saturation 93.9 L (94-97) % Hemoglobin 12.4 L (13.0-17.5) gm/dL Carbon Dioxide 36 H (22-30) mmol/L Creatinine 0.45 L (0.66-1.25) mg/dL Microbiology - Last 24 Hours (Table) 01/24/24 10:35 Acid Fast Bacilli Smear - Preliminary Cerebral Spinal Fluid Acid Fast Bacilli Culture - Preliminary Assessment and Plan (1) Aspiration pneumonia Current Visit: Yes Status: Acute Code(s): J69.0 - PNEUMONITIS DUE TO INHALATION OF FOOD AND VOMIT SNOMED Code(s): 701339445 (2) Leukocytosis Current Visit: Yes Status: Acute Code(s): D72.829 - ELEVATED WHITE BLOOD CELL COUNT, UNSPECIFIED SNOMED Code(s): 844582723 (3) Allergy to multiple antibiotics Current Visit: No Status: Acute Code(s): Z88.1 - ALLERGY STATUS TO OTHER ANTIBIOTIC AGENTS SNOMED Code(s): 763311213 Plan: 1patient with an episode of sepsis in this patient who did have significant evaded white count patient also have mild hypotension and source is likely aspiration pneumonitis, sputum culture positive for Klebsiella and patient has received adequate by therapy for underlying Klebsiella pneumonia 2- patient CSF culture growing presumptive MRSA however CSF white count was 0 and glucose was normal at 72 more likely representing contamination rather than true infection 3patient subsequently did have issues with elevated white count source likely GI and the patient white count did respond to the cefepime followed by Rocephin and Flagyl, patient will complete his IV Rocephin and Flagyl today. 4noticed to have slight worsening of the white count and will monitor closely if any further worsening of the white count or fever to reculture and will start appropriate antibiotic at that point Dictation was produced using [employer] dictation software. please excuse any grammatical, word or spelling errors.
[2024-02-09] MEDS: POTASSIUM BICARBONATE/CIT AC 20 MEQ TABLET.EFF NG-TUBE SCH (16:49)
[2024-02-09] MEDS: METOCLOPRAMIDE 5 MG/ML 2 ML VIAL IVP SCH (16:49)
[2024-02-09 17:57] LABS: Glucose,Whole Blood 74 mg/dL (70-110)
--- NOTE | 2024-02-09 18:04 | P.PN ---
Subjective Progress Note Date: 02/09/24 This is a pleasant 68 years old male with past medical history of psychosis and multiple admission for suicidal ideation, hypertension, osteoarthritis Patient brought to the emergency room because he was found by his roommate on the floor, hard to wake up. When he came to emergency room he was answering questions but looks like he is continued to be confused Patient currently opens eyes and follows simple commands but not all every command. Also he answers some questions. However he looks confused significantly. He is disoriented to time place and person. He has no insight. But he denies any pain. No headache. No dizziness. Moves arms and legs. No tingling. Patient on admission was tachycardic and tachypneic but afebrile He had mild leukocytosis, high hemoglobin at 25 and sodium 156 and creatinine 1.7. Liver enzymes moderately elevated Lactic acid 4.0 Troponin is elevated 0.09 Urine drug screen is negative Serum alcohol less than 10. CT of the head and neck is negative for acute process for either side Chest x-ray is negative for acute process and I reviewed the chest x-rays and agree EKG showing sinus tachycardia at [address] depression 01/21 Patient remains confused, he open eyes to verbal stimuli, he can tell me his name and then he goes back to sleep No abnormal movement Patient sodium 1 significantly elevated at 155, he was given D5W at 75 mL/h, rep eat sodium this morning is still pending Patient looks dehydrated. Sommelier evaluated the patient for higher troponin which is thought secondary to dehydration however he has some ST depression in the lateral leads, range conservationist recommended heparin drip x 48 hours as well as metoprolol and Lipit or which are ordered. Yesterday I discussed the case with the neurologist on-call, he recommended to hold on consult since the patient has severe metabolic abnormality. This morning patient remains confused with no significant improvement therefore we are going to reconsult neurology service. He has elevated hemoglobin and hematocrit, most likely secondary to dehydration, keep following levels till sodium level corrected and then reassess. Abdomen looks soft, patient denies abdominal pain or chest pain. 01/22 Patient was moved to the ICU yesterday because of concerns about inability to protect airway He was able to breathe okay this morning. He remains severely confused He remains on D5W at 150 mL/h, sodium down to 152 today Creatinine back to reference range Repeat CT of the brain is negative Heparin drip was discontinued and patient placed on subcutaneous heparin 01/23 Patient is becoming more encephalopathic, he is nonverbal, does not follow command does not answer questions. This is despite correction of his hyponatremia and other metabolic abnormalities like acute kidney injury. And there is concerned about ability to protect airway so far he does not need intervention but close monitoring in the ICU Today patient underwent lumbar puncture and results Showing RBC is elevated at 28, nucleated cells are 0. Glucose slightly elevated 72 and protein 106. Cultures pending Also patient has low-grade fever and is Amandeep concentrated sample of CBC improved except for WBC remains elevated about 15.1 K, neurology service recommended to consider ID team, Patient is also history of suicidal ideation however his urine drug screen on admission showed only marijuana Prognosis remains guarded 01/24 Patient barrel finisher desaturated down to 70s associated with brief period of rigidness and shakiness and his eyes were wide open, this episode happened twice and lasted for short time seconds to minutes. He had EEG initially done which was unremarkable another EEG is requested today, patient was started on IV Keppra 1000 mg Also ABG shows evidence of acute hypoxic hypercapnic respiratory failure, patient was unable to protect his airway and he got intubated today. In the meantime there is no abnormal movement currently. He is afebrile this morning. Last fever was on 01/22 and it was 100 degrees which is low-grade. Labs showing leukocytosis worse 21.7, hemoglobin 18, platelet count is 188. pH 7.1, pCO2 is high at 95. Oxygen with pO2 of 86 while on 15 L. Sodium 137, potassium 3.3. Liver enzymes not significantly elevated. CSF culture permanent results are still pending 01/25 Patient yesterday could not protect his airway and he was intubated and placed on mechanical ventilation. Pulmonary/critical care team following closely and help with vent management. No seizure-like activity or abnormal movements noted. EEG done and reviewed. Neurologist on the case. Patient is currently on IV Keppra 1000 twice daily Also patient started on IV vancomycin and cefepime per ID team recommendation for suspected sepsis. Cultures are pending. Patient has no fever for the last 3 days. Leukocyte count today still mildly elevated at 16 but coming down from 21 yesterday. Electrolytes are improving. Patient remains in critical condition. 01/26 Patient remains in the ICU intubated and on mechanical ventilation He is currently covered with IV vancomycin and cefepime, for suspected pneumon ia. Nasal culture growing MRSA and sputum culture growing Klebsiella pneumonia 01/27 Patient remains intubated and on mechanical ventilation without sedation. No abnormal movements noted He is afebrile and blood pressure holding well. WBCs 11. He still somewhat acidotic with pH 7.3 and pCO2 high 61. BMP and liver enzymes were unremarkable. Nasal screen is positive for MRSA sputum Culture is positive for Klebsiella CSF culture from pulmonary suction presumptive MRSA. However suspicion of [employer] infection is very low as CSF sample showing no leukocytes, 0 WBC. Also sugar is high rather than low which goes against infection. And also his neck was supple on examined him on admission. I discussed with the staff the CSF sample waited more than 5 hours before it goes to the lab And chest x-ray showing significant pneumonia in the left lower lobe Currently he is on cefepime also on IV Keppra 02/02 I am assuming the care of the patient today. He remains in the ICU intubated and with no much improvement in his encephalopathy The exact cause of his encephalopathy is unknown. Pulmonary team on the case. Patient may benefit from tracheostomy and PEG tube replacement. Pending legal guardianship determination on Monday He keeps covered with antibiotic currently with ceftriaxone and [facility] team were following the case for recent GI bleed. Currently looks stable 02/03 Patient on mechanical ventilation, is currently intubated. Still severely encephalopathic Afebrile and vital stable No leukocytosis and hemoglobin 10.2. BMP is unremarkable. Patient will be evaluated for tracheostomy and PEG tube placement after legal guardianship determination 02/05/2024 Patient is seen in follow-up continues in the ICU on mechanical ventilation and difficult weaning planning for PEG and trach tentatively 02/06/2024. Patient was awaiting an appointed guardian and social work following going to court today. Discussed also possible comfort measures. Patient continues on mechanical ventilation and continuing to undergo neurological workup. Repeat CT brain is ordered and pending. 02/06/2024 Patient is seen in follow-up today and has received a public guardian and remains full code at this time with plans on receiving PEG tube and tracheostomy today with general surgery. Patient will require 3 attempts at weaning off the vent prior to select specialties accepting the patient. Neurology following as patient remains minimally responsive and follow-up CT was negative and patient is off sedation. 02/07/2024 Patient is seen in follow-up today with multiple consultations following maintained in the ICU status post PEG and trach placement with general surgery. Patient to initiate tube feedings today per dietary recommendations and will monitor for tolerance. Patient's abdomen appeared distended and abdominal x-ray done showing no acute process. Patient is maintained on scheduled bowel movement and has had 3 bowel movements today. Continue as needed bowel regimen. Plan is for possibly select specialties in the next few days and will require trials and failures of weaning from ventilation 02/08/2024 Patient is seen in follow-up today has received a tracheostomy and PEG tube. Tube feedings are to start. Per nursing staff when attempting to wean patient desats quickly becomes extremely tachycardic and hypoxic. General surgery following and will be initiating on tube feedings and will continue with hoffman pportive care. Patient undergoing neurological workup and scheduled to undergo EEG. Patient does have a significant past medical history of extensive right lower extremity wound although appears stable at this time. 02/09/2024 Patient is seen and evaluated in follow-up today continues on mechanical ventilation via tracheostomy and also is continued on tube feeds. Patient has had 3 failed trial attempts at weaning from the vent and working on possible transfer to [facility] special[facility] for further ongoing continued respiratory care. Patient is maintained on antibiotics with infectious disease following and will be finishing antibiotics today and being closely monitored. Follow-up on repeat CBC to monitor the white count. Patient also undergoing neurological workup. Patient remains off sedation as patient is minimally responsive Review of systems: Unable to obtain as patient is on mechanical ventilation and unresponsive Physical exam: GENERAL: The patient is intubated on mechanical ventilation via tracheostomy, ill-appearing, elderly appearing HEENT: Pupils are round and equally reacting to light. EOMI. No scleral icterus. No conjunctival pallor. Normocephalic, atraumatic. No pharyngeal erythema. No thyromegaly. Tracheostomy noted CARDIOVASCULAR: S1 and S2 muffled PULMONARY: Diminished breath sounds bilaterally with some bronchial congestion otherwise chest is clear to auscultation, no wheezing , no crackles. ABDOMEN: Soft, obese, nontender, nondistended, normoactive bowel sounds. No palpable organomegaly. PEG tube noted MUSCULOSKELETAL: No joint swelling or deformity. EXTREMITIES: No cyanosis, clubbing, bilateral upper extremity edema, 2+ pitting NEUROLOGICAL: Gross neurological examination did not reveal any focal deficits. Could not completely assess as patient is on mechanical ventilation and unresponsive SKIN: No rashes. no petechiae. Edematous Assessment: Severe encephalopathy, could be multifactorial. Metabolic/toxic encephalopathy contributing, however no specified cause was found for his encephalopathy Acute hypoxic hypercapnic respiratory failure, patient unable to protect airway secondary to above, s/p intubation and mechanical ventilation with inability to wean, Status post tracheostomy and PEG tube placement 02/06/2024, tube feedings have been initiated Suspected seizure-like activity on 01/24 x 2 Suspected sepsis. Secondary to pneumonia Acute GI bleed, improved Hypernatremia. Resolved Non-STEMI with elevated troponin with some EKG changes but patient denies chest pain. Acute kidney injury, improving History of depression, psychosis and suicidal ideation Severe dehydration and hypovolemia History of chronic left leg wound, currently wound is closed, no evidence of cellulitis but mild deformity in the muscles of the left leg Elevated lactic acid GI prophylaxis DVT prophylaxis Full code Plan: Continue with ICU management. Patient with multiple consultations following including continuing undergoing neurological workup. General surgery following as patient has unable to wean from mechanical ventilation and is status post PEG and trach placement. Tube feedings to be initiated. General surgery reevaluated tracheostomy site and placed 2 sutures. No air leak noted. Patient has undergone 3 failed attempts at weaning from the ventilator and working on transfer to LTAC. Patient requires insurance authorization which is currently pending. Infectious disease following and maintained on antibiotics and will finish course today and be monitored off antibiotics. Follow-up CBC as white count was elevated today. Social work following and has obtained legal guardianship and will await finalized report on that to discuss treatment plan moving forward and/or possible comfort measures Currently remains full code and underwent PEG and trach placement. Patient will require extensive rehab and continuous respiratory care. Due to multiple complex medical issues, overall prognosis is extremely poor and guarded at this time The impression and plan of care has been dictated by Carol Toney, Nurse Practitioner as directed. Dr. Debi MD I have performed a history and examination and MDM of this patient, discussed the same with the dictator, and agree with the dictator's assessment and plan as written ,documented as a scribe. Based on total visit time, I have performed more than 50% of the visit. Objective - Vital Signs Vital signs: Vital Signs Temp 98.1 F 02/09/24 16:00 Pulse 93 02/09/24 17:00 Resp 21 02/09/24 17:00 BP 125/77 02/09/24 17:00 Pulse Ox 96 02/09/24 17:00 FiO2 30 02/09/24 17:00 Intake & Output 02/08/24 02/09/24 02/09/24 18:59 06:59 18:59 Intake Total 240 440 335 Output Total 1590 1880 505 Balance -1350 -1440 -170 Weight 79.6 kg 79.6 kg Intake: IV 240 240 225 0.9 @ 10 240 240 225 Tube Feeding 110 110 Other 90 Output: Urine 1590 1880 505 Other: Voiding Method Indwelling Catheter Indwelling Catheter Indwelling Catheter ABP, PAP, CO, CI - Last Documented Arterial Blood Pressure 121/54 - Labs CBC & Chem 7: 02/09/24 09:00 02/09/24 09:00 Labs: Abnormal Lab Results - Last 24 Hours (Table) 02/09/24 02/09/24 02/09/24 Range/Units 05:20 09:00 09:00 WBC 15.2 H (3.8-10.6) k/uL RBC 3.76 L (4.30-5.90) m/uL Hgb 12.5 L (13.0-17.5) gm/dL MCV 104.6 H (80.0-100.0) fL RDW 15.9 H (11.5-15.5) % Neutrophils # 13.9 H (1.3-7.7) k/uL Lymphocytes # 0.6 L (1.0-4.8) k/uL ABG pH 7.51 H (7.35-7.45) ABG pCO2 46 H (35-45) mmHg ABG pO2 67 L (83-108) mmHg ABG HCO3 37 H (21-25) mmol/L ABG Total CO2 39 H (19-24) mmol/L ABG O2 Saturation 93.9 L (94-97) % Hemoglobin 12.4 L (13.0-17.5) gm/dL Carbon Dioxide 36 H (22-30) mmol/L Creatinine 0.45 L (0.66-1.25) mg/dL Microbiology - Last 24 Hours (Table) 01/24/24 10:35 Acid Fast Bacilli Smear - Preliminary Cerebral Spinal Fluid Acid Fast Bacilli Culture - Preliminary
[2024-02-09] MEDS: THIAMINE 100 MG TAB PO SCH (21:15)
[2024-02-10 00:25] LABS: Glucose,Whole Blood 71 mg/dL (70-110)
[2024-02-10 05:11] LABS: Anisocytosis Slight; Basophils % (A) 0 %; Eosinophils # (A) 0.1 k/uL (0-0.7); Eosinophils % (A) 1 %; HCT 32.8 % (39.0-53.0); HGB 10.5 gm/dL (13.0-17.5); Lymphocytes % (A) 12 %; MCH 33.3 pg (25.0-35.0); MCV 103.9 fL (80.0-100.0); Macrocytosis Moderate; Mean Platelet Volume 9.5; Monocytes # (A) 0.5 k/uL (0-1.0); Monocytes % (A) 6 %; Neutrophils # (A) 7.1 k/uL (1.3-7.7); Neutrophils % (A) 80 %; Platelet Count 242 k/uL (150-450); RBC 3.16 m/uL (4.30-5.90); RDW 16.4 % (11.5-15.5); WBC 8.8 k/uL (3.8-10.6)
[2024-02-10 05:54] LABS: ABG Base Excess 12.5 mmol/L; ABG HCO3 37 mmol/L (21-25); ABG Oxygen Saturation 98.3 % (94-97); ABG PCO2 46 mmHg (35-45); ABG PH 7.51 (7.35-7.45); ABG PO2 95 mmHg (83-108); ABG TCO2 38 mmol/L (19-24); Allen Test Performed? Yes
[2024-02-10 06:06] LABS: ALT 18 U/L (4-49); AST 54 U/L (17-59); African American GFR (CKD) >90 (>60 ml/min/1.73 sqM); Albumin 2.5 g/dL (3.5-5.0); Alkaline Phosphatase 125 U/L (38-126); Anion Gap 3 mmol/L; Blood Urea Nitrogen 15 mg/dL (9-20); Calcium 8.7 mg/dL (8.4-10.2); Carbon Dioxide 36 mmol/L (22-30); Chloride 100 mmol/L (98-107); Glucose 81 mg/dL (74-99); Magnesium 1.5 mg/dL (1.6-2.3); Non-African American GFR(CKD) >90 (>60 ml/min/1.73 sqM); Potassium 3.2 mmol/L (3.5-5.1); Sodium 139 mmol/L (137-145); Total Bilirubin 0.6 mg/dL (0.2-1.3); Total Protein 5.1 g/dL (6.3-8.2)
[2024-02-10 06:34] LABS: Glucose,Whole Blood 77 mg/dL (70-110)
--- NOTE | 2024-02-10 07:09 | XR ---
EXAMINATION TYPE: XR chest 1V portable DATE OF EXAM: 02/10/2024 5:27 AM COMPARISON: Chest radiographs from 02/08/2024 CLINICAL INDICATION: Male, 68 years old with history of pt. on ventilator; [facility] TECHNIQUE: XR chest 1V portable Frontal view of the chest. FINDINGS: Lungs/Pleura: Similar multifocal airspace opacities. No evidence of pneumothorax or pleural effusion. Pulmonary vascularity: Unremarkable. Heart/mediastinum: Cardiomediastinal silhouette is unremarkable. Musculoskeletal: No acute osseous pathology. Other findings: None Lines/Tubes: Tracheostomy cannula tip projecting over the trachea. IMPRESSION: Similar multifocal airspace opacities given differences in technique. [facility], , 02/10/2024 7:06 AM
[2024-02-10] MEDS: MAGNESIUM SULFATE-D5W PMX 1 GM in DEXTROSE/WATER 1 100ML.BAG IVPB SCH (08:21)
[2024-02-10] MEDS: POTASSIUM BICARBONATE/CIT AC 20 MEQ TABLET.EFF NG-TUBE SCH (08:51)
[2024-02-10] MEDS: FUROSEMIDE 10 MG/ML 4 ML VIAL IV SCH (09:46)
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
--- NOTE | 2024-02-10 11:19 | P.PN ---
Progress Note - Text Progress Note Date: 02/10/24 CHIEF COMPLAINT: Aspiration pneumonia HISTORY OF PRESENT ILLNESS: Patient remains in the ICU on mechanical ventilation. Patient is status post tracheostomy and PEG tube placement on 02/06/24. Patient is status post EGD and colonoscopy with GI service on 01/31. No acute events overnight. PHYSICAL EXAM: VITAL SIGNS: Reviewed. GENERAL: no acute distress. HEENT: Tracheostomy site is intact. No drainage. Tracheostomy site with sutures ABDOMEN: Soft. Nondistended. Nontender. Peg tube site clean dry and intact ASSESSMENT: 1. Acute lower GI bleed status post EGD and colonoscopy 2. Fecal impaction resolved 3. Aspiration pneumonia PLAN: -Dietitian to continue to titrate tube feeds -Continue ICU management -Continue supportive care Chiki Rubio DO [facility] [phone]
[2024-02-10 11:43] LABS: Glucose,Whole Blood 109 mg/dL (70-110)
[2024-02-10] MEDS: FOLIC ACID 1 MG TAB PO SCH (12:20)
--- NOTE | 2024-02-10 13:07 | CT ---
EXAMINATION TYPE: CT brain wo/w con, CT sinus wo/w con DATE OF EXAM: 02/10/2024 1:03 PM COMPARISON: None. CLINICAL INDICATION: Male, 68 years old with history of Altered mental status; Severe sinusitis and A MS TECHNIQUE: Axial CT images were obtained with coronal and sagittal reformats created and reviewed. Axial imaging of the paranasal sinuses with sagittal and coronal reformats. Contrast used:100ml mL of Isovue 300 without and with IV Contrast, Oral contrast used: none. CT DLP: 2429 mGycm, Automated exposure control for dose reduction was used. FINDINGS: Extra-axial spaces: No abnormal extra-axial fluid collections. Ventricular system: Dilatation in proportion to cerebral atrophy. Cerebral parenchyma: Cerebral atrophy. No acute intraparenchymal hemorrhage or mass effect. The smart -white junction is well differentiated. No abnormal enhancement is seen after the administration of i ntravenous contrast. Cerebellum: Unremarkable. Mass effect: No evidence of midline shift. Intracranial vasculature: Atherosclerotic calcifications of the intracranial vessels. Soft tissues: Normal. Calvarium/osseous structures: No depressed skull fracture. Paranasal sinuses and mastoid air cells: Mucosal retention cysts and mucosal thickening of the maxill elida sinuses. The ostiomeatal complexes are patent. The frontonasal recesses are patent. Mucosal thick ening throughout the ethmoid air cells. The sphenoid sinuses also demonstrate mucosal thickening. Visualized orbits: Orbital contents are intact. IMPRESSION: 1. No acute intracranial process. 2. Moderate paranasal sinus disease. 3. Ostomy of complexes, frontonasal and sphenoethmoidal recess are all patent. [facility], Workstation: [id number], 02/10/2024 1:05 PM
--- NOTE | 2024-02-10 13:07 | P.PN ---
Subjective Progress Note Date: 02/10/24 Principal diagnosis: Reason for follow-up is sepsis possible aspiration pneumonia Patient is a 68-year-old male with a past medical history significant for COPD hypertension [place] osteoarthritis patient did have a history of necrotizing infection of the left lower extremity with initial admission to hospital mental status changes subsequently have worsening of his respiratory status requiring intubation and concern for possible aspiration pneumonia.Patient did have a EGD with evidence of esophagitis colonoscopy possibility of stercoral ulcer in the rectum On today's evaluation that is 02/10/2024, Patient is afebrile patient is currently on ventilator through the trach FiO2 stable at 30% no significant purulent secretion through the ET or any changes reported by the nursing staff. Patient white count normalized to 8.8 creatinine is 0.51 Objective - Vital Signs Vital signs: Vital Signs Temp 97.4 F L 02/10/24 08:00 Pulse 84 02/10/24 11:16 Resp 14 02/10/24 11:00 BP 127/78 02/10/24 11:00 Pulse Ox 96 02/10/24 11:00 FiO2 30 02/10/24 11:07 Intake & Output 02/09/24 02/10/24 02/10/24 18:59 06:59 18:59 Intake Total 395 540 280 Output Total 565 1070 480 Balance -170 -530 -200 Weight 79.6 kg 77.7 kg Intake: IV 265 220 130 0.9 @ 10 265 220 80 Magnesium Sulfate-D5w Pmx 50 1 gm In Dextrose/Water 1 100ml.bag @ 100 mls/hr IVPB Q1H [facility] Rx#: [id number] Tube Feeding 130 230 120 Other 90 30 Output: Urine 565 1070 480 Other: Voiding Method Indwelling Catheter Indwelling Catheter Indwelling Catheter ABP, PAP, CO, CI - Last Documented Arterial Blood Pressure 121/54 - Exam GENERAL DESCRIPTION: An elderly male intubated through the trach RESPIRATORY SYSTEM: Unlabored breathing , decreased breath sounds at bases HEART: S1 S2 regular rate and rhythm , ABDOMEN: Soft , no tenderness EXTREMITIES: No edema feet - Labs CBC & Chem 7: 02/10/24 04:33 02/10/24 04:33 Labs: Abnormal Lab Results - Last 24 Hours (Table) 02/10/24 02/10/24 02/10/24 Range/Units 04:33 04:33 05:53 RBC 3.16 L (4.30-5.90) m/uL Hgb 10.5 L (13.0-17.5) gm/dL Hct 32.8 L (39.0-53.0) % MCV 103.9 H (80.0-100.0) fL RDW 16.4 H (11.5-15.5) % ABG pH 7.51 H (7.35-7.45) ABG pCO2 46 H (35-45) mmHg ABG HCO3 37 H (21-25) mmol/L ABG Total CO2 38 H (19-24) mmol/L ABG O2 Saturation 98.3 H (94-97) % Hemoglobin 10.5 L (13.0-17.5) gm/dL Potassium 3.2 L (3.5-5.1) mmol/L Carbon Dioxide 36 H (22-30) mmol/L Creatinine 0.51 L (0.66-1.25) mg/dL Magnesium 1.5 L (1.6-2.3) mg/dL Total Protein 5.1 L (6.3-8.2) g/dL Albumin 2.5 L (3.5-5.0) g/dL Assessment and Plan (1) Aspiration pneumonia Current Visit: Yes Status: Acute Code(s): J69.0 - PNEUMONITIS DUE TO INHALATION OF FOOD AND VOMIT SNOMED Code(s): 937460085 (2) Leukocytosis Current Visit: Yes Status: Acute Code(s): D72.829 - ELEVATED WHITE BLOOD CELL COUNT, UNSPECIFIED SNOMED Code(s): 623277297 (3) Allergy to multiple antibiotics Current Visit: No Status: Acute Code(s): Z88.1 - ALLERGY STATUS TO OTHER ANTIBIOTIC AGENTS SNOMED Code(s): 431656533 Plan: 1patient with an episode of sepsis in this patient who did have significant evaded white count patient also have mild hypotension and source is likely aspiration pneumonitis, sputum culture positive for Klebsiella and patient has received adequate by therapy for underlying Klebsiella pneumonia 2- patient CSF culture growing presumptive MRSA however CSF white count was 0 and glucose was normal at 72 more likely representing contamination rather than true infection 3patient subsequently did have issues with elevated white count source likely GI and the patient white count did respond to the cefepime followed by Rocephin and Flagyl, patient will complete his IV Rocephin and Flagyl as of 02/09/2024 4patient has been afebrile patient white count is normalized we will monitor closely off antibiotic therapy Dictation was produced using [employer] dictation software. please excuse any grammatical, word or spelling errors. Time with Patient: Less than 30
[2024-02-10 17:54] LABS: Glucose,Whole Blood 100 mg/dL (70-110)
[2024-02-11 00:27] LABS: Glucose,Whole Blood 96 mg/dL (70-110)
[2024-02-11 05:15] LABS: Glucose,Whole Blood 98 mg/dL (70-110)
[2024-02-11 05:58] LABS: Anisocytosis Slight; Basophils % (A) 0 %; Eosinophils # (A) 0.1 k/uL (0-0.7); Eosinophils % (A) 1 %; HCT 31.8 % (39.0-53.0); HGB 10.4 gm/dL (13.0-17.5); Lymphocytes % (A) 11 %; MCHC 32.8 g/dL (31.0-37.0); MCV 103.8 fL (80.0-100.0); Macrocytosis Moderate; Mean Platelet Volume 8.7; Monocytes # (A) 0.4 k/uL (0-1.0); Monocytes % (A) 5 %; Neutrophils # (A) 7.3 k/uL (1.3-7.7); Neutrophils % (A) 81 %; Platelet Count 228 k/uL (150-450); RBC 3.06 m/uL (4.30-5.90); RDW 16.2 % (11.5-15.5)
[2024-02-11 06:11] LABS: African American GFR (CKD) >90 (>60 ml/min/1.73 sqM); Anion Gap 1 mmol/L; Blood Urea Nitrogen 13 mg/dL (9-20); Calcium 8.7 mg/dL (8.4-10.2); Carbon Dioxide 35 mmol/L (22-30); Chloride 101 mmol/L (98-107); Glucose 96 mg/dL (74-99); Magnesium 1.5 mg/dL (1.6-2.3); Non-African American GFR(CKD) >90 (>60 ml/min/1.73 sqM); Potassium 3.1 mmol/L (3.5-5.1); Sodium 137 mmol/L (137-145)
[2024-02-11 06:20] LABS: ABG Base Excess 13.5 mmol/L; ABG HCO3 38 mmol/L (21-25); ABG Oxygen Saturation 98.9 % (94-97); ABG PCO2 48 mmHg (35-45); ABG PH 7.51 (7.35-7.45); ABG PO2 107 mmHg (83-108); ABG TCO2 40 mmol/L (19-24); Allen Test Performed? Yes
[2024-02-11] MEDS: MAGNESIUM SULFATE-D5W PMX 1 GM in DEXTROSE/WATER 1 100ML.BAG IVPB SCH ×2 (06:53→22:52)
--- NOTE | 2024-02-11 07:10 | XR ---
EXAMINATION TYPE: XR chest 1V portable DATE OF EXAM: 02/11/2024 5:09 AM COMPARISON: Chest radiograph from one day prior. CLINICAL INDICATION: Male, 68 years old with history of Pt. on vent; [facility] TECHNIQUE: XR chest 1V portable Frontal view of the chest. FINDINGS: Lungs/Pleura: Similar airspace opacities most pronounced in the right lung base. No evidence of pneum othorax or right pleural effusion. There is blunting of the left costophrenic angle. Pulmonary vascularity: Unremarkable. Heart/mediastinum: Cardiomediastinal silhouette is unremarkable. Musculoskeletal: No acute osseous pathology. Other findings: None Lines/Tubes: Tracheostomy cannula tip projecting over the trachea. IMPRESSION: 1. Stable exam given differences in technique. 2. Blunting of left costophrenic angle possibly secondary to small pleural effusion. [facility], , 02/11/2024 7:08 AM
[2024-02-11] MEDS: POTASSIUM BICARBONATE/CIT AC 20 MEQ TABLET.EFF NG-TUBE SCH (08:49)
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
--- NOTE | 2024-02-11 11:15 | P.PN ---
Progress Note - Text Progress Note Date: 02/11/24 HISTORY OF PRESENT ILLNESS: Patient remains in the ICU on mechanical ventilation. Patient is status post tracheostomy and PEG tube placement on 02/06/24. Patient is status post EGD and colonoscopy with GI service on 01/31. No acute events overnight. PHYSICAL EXAM: VITAL SIGNS: Reviewed. GENERAL: no acute distress. HEENT: Tracheostomy site is intact. No drainage. Tracheostomy site with sutures ABDOMEN: Soft. Nondistended. Nontender. Peg tube site clean dry and intact ASSESSMENT: 1. Acute lower GI bleed status post EGD and colonoscopy 2. Fecal impaction resolved 3. Aspiration pneumonia PLAN: -Dietitian to continue to titrate tube feeds -Continue ICU management -Continue supportive care Chiki Rubio DO [facility] [phone]
[2024-02-11 11:45] LABS: Glucose,Whole Blood 103 mg/dL (70-110)
--- NOTE | 2024-02-11 15:12 | P.PN ---
Subjective Progress Note Date: 02/11/24 Principal diagnosis: Reason for follow-up is sepsis possible aspiration pneumonia Patient is a 68-year-old male with a past medical history significant for COPD hypertension [place] osteoarthritis patient did have a history of necrotizing infection of the left lower extremity with initial admission to hospital mental status changes subsequently have worsening of his respiratory status requiring intubation and concern for possible aspiration pneumonia.Patient did have a EGD with evidence of esophagitis colonoscopy possibility of stercoral ulcer in the rectum On today's evaluation that is 02/11/2024, patient has been afebrile, patient remains to be intubated on the vent through the trach patient is hemodynamically stable not requiring any pressor support FiO2 stable at 30% no other changes reported by the nursing staff. The patient white count is 9.0, creatinine 0.36 chest x-ray this morning stable exam Objective - Vital Signs Vital signs: Vital Signs Temp 97.8 F 02/11/24 12:00 Pulse 86 02/11/24 12:00 Resp 17 02/11/24 12:00 BP 140/80 02/11/24 12:00 Pulse Ox 98 02/11/24 12:00 FiO2 30 02/11/24 12:00 Intake & Output 02/10/24 02/11/24 02/11/24 19:59 06:59 18:59 Intake Total 827 Output Total 1515 Balance -688 Weight Intake: IV 340 0.9 @ 10 140 Magnesium Sulfate-D5w Pmx 1 gm In Dextrose/Water 1 100ml.bag @ 100 mls/hr IVPB Q1H [facility] Rx#: [id number] Magnesium Sulfate-D5w Pmx 200 1 gm In Dextrose/Water 1 100ml.bag @ 100 mls/hr IVPB Q1H [facility] Rx#: [id number] Tube Feeding 427 Other 60 Output: Urine 1515 Other: Voiding Method Indwelling Catheter ABP, PAP, CO, CI - Last Documented Arterial Blood Pressure 121/54 - Exam GENERAL DESCRIPTION: An elderly male intubated through the trach RESPIRATORY SYSTEM: Unlabored breathing , decreased breath sounds at bases HEART: S1 S2 regular rate and rhythm , ABDOMEN: Soft , no tenderness EXTREMITIES: No edema feet - Labs CBC & Chem 7: 02/11/24 05:40 02/11/24 05:40 Labs: Abnormal Lab Results - Last 24 Hours (Table) 02/11/24 02/11/2424 Range/Units 05:40 05:40 06:18 RBC 3.06 L (4.30-5.90) m/uL Hgb 10.4 L (13.0-17.5) gm/dL Hct 31.8 L (39.0-53.0) % MCV 103.8 H (80.0-100.0) fL RDW 16.2 H (11.5-15.5) % ABG pH 7.51 H (7.35-7.45) ABG pCO2 48 H (35-45) mmHg ABG HCO3 38 H (21-25) mmol/L ABG Total CO2 40 H (19-24) mmol/L ABG O2 Saturation 98.9 H (94-97) % Hemoglobin 10.5 L (13.0-17.5) gm/dL Potassium 3.1 L (3.5-5.1) mmol/L Carbon Dioxide 35 H (22-30) mmol/L Creatinine 0.36 L (0.66-1.25) mg/dL Magnesium 1.5 L (1.6-2.3) mg/dL Assessment and Plan (1) Aspiration pneumonia Current Visit: Yes Status: Acute Code(s): J69.0 - PNEUMONITIS DUE TO INHALATION OF FOOD AND VOMIT SNOMED Code(s): 256772402 (2) Leukocytosis Current Visit: Yes Status: Acute Code(s): D72.829 - ELEVATED WHITE BLOOD CELL COUNT, UNSPECIFIED SNOMED Code(s): 118946003 (3) Allergy to multiple antibiotics Current Visit: No Status: Acute Code(s): Z88.1 - ALLERGY STATUS TO OTHER ANTIBIOTIC AGENTS SNOMED Code(s): 896753178 Plan: 1patient with an episode of sepsis in this patient who did have significant evaded white count patient also have mild hypotension and source is likely aspiration pneumonitis, sputum culture positive for Klebsiella and patient has received adequate by therapy for underlying Klebsiella pneumonia 2- patient CSF culture growing presumptive MRSA however CSF white count was 0 and glucose was normal at 72 more likely representing contamination rather than true infection 3patient subsequently did have issues with elevated white count source likely GI and the patient white count did respond to the cefepime followed by Rocephin and Flagyl, patient will complete his IV Rocephin and Flagyl as of 02/09/2024 4patient has been afebrile patient white count has been normal will be monitored closely off antibiotic therapy at this point Dictation was produced using [employer] dictation software. please excuse any grammatical, word or spelling errors. Time with Patient: Less than 30
[2024-02-11 18:01] LABS: Glucose,Whole Blood 96 mg/dL (70-110)
--- NOTE | 2024-02-11 22:29 | P.PN ---
Subjective Progress Note Date: 02/10/24 This is a pleasant 68 years old male with past medical history of psychosis and multiple admission for suicidal ideation, hypertension, osteoarthritis Patient brought to the emergency room because he was found by his roommate on the floor, hard to wake up. When he came to emergency room he was answering questions but looks like he is continued to be confused Patient currently opens eyes and follows simple commands but not all every command. Also he answers some questions. However he looks confused significantly. He is disoriented to time place and person. He has no insight. But he denies any pain. No headache. No dizziness. Moves arms and legs. No tingling. Patient on admission was tachycardic and tachypneic but afebrile He had mild leukocytosis, high hemoglobin at 25 and sodium 156 and creatinine 1.7. Liver enzymes moderately elevated Lactic acid 4.0 Troponin is elevated 0.09 Urine drug screen is negative Serum alcohol less than 10. CT of the head and neck is negative for acute process for either side Chest x-ray is negative for acute process and I reviewed the chest x-rays and agree EKG showing sinus tachycardia at [address] depression 01/21 Patient remains confused, he open eyes to verbal stimuli, he can tell me his name and then he goes back to sleep No abnormal movement Patient sodium 1 significantly elevated at 155, he was given D5W at 75 mL/h, repeat sodium this morning is still pending Patient looks dehydrated. Construction Cost Estimator evaluated the patient for higher troponin which is thought secondary to dehydration however he has some ST depression in the lateral leads, retail sales professional recommended heparin drip x 48 hours as well as metoprolol and Lipitor which are ordered. Yesterday I discussed the case with the neurologist on-call, he recommended to h oskar on consult since the patient has severe metabolic abnormality. This morning patient remains confused with no significant improvement therefore we are going to reconsult neurology service. He has elevated hemoglobin and hematocrit, most likely secondary to dehydration, keep following levels till sodium level corrected and then reassess. Abdomen looks soft, patient denies abdominal pain or chest pain. 01/22 Patient was moved to the ICU yesterday because of concerns about inability to protect airway He was able to breathe okay this morning. He remains severely confused He remains on D5W at 150 mL/h, sodium down to 152 today Creatinine back to reference range Repeat CT of the brain is negative Heparin drip was discontinued and patient placed on subcutaneous heparin 01/23 Patient is becoming more encephalopathic, he is nonverbal, does not follow command does not answer questions. This is despite correction of his hyponatremia and other metabolic abnormalities like acute kidney injury. And there is concerned about ability to protect airway so far he does not need intervention but close monitoring in the ICU Today patient underwent lumbar puncture and results Showing RBC is elevated at 28, nucleated cells are 0. Glucose slightly elevated 72 and protein 106. 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 He had EEG initially done which was unremarkable another EEG is requested today, patient was started on IV Keppra 1000 mg Also ABG shows evidence of acute hypoxic hypercapnic respiratory failure, patient was unable to protect his airway and he got intubated today. In the meantime there is no abnormal movement currently. He is afebrile this morning. Last fever was on 01/22 and it was 100 degrees which is low-grade. Labs showing leukocytosis worse 21.7, hemoglobin 18, platelet count is 188. pH 7.1, pCO2 is high at 95. Oxygen with pO2 of 86 while on 15 L. Sodium 137, potassium 3.3. Liver enzymes not significantly elevated. CSF culture permanent results are still pending 01/25 Patient yesterday could not protect his airway and he was intubated and placed on mechanical ventilation. Pulmonary/critical care team following closely and help with vent management. No seizure-like activity or abnormal movements noted. EEG done and reviewed. Neurologist on the case. Patient is currently on IV Keppra 1000 twice daily Also patient started on IV vancomycin and cefepime per ID team recommendation for suspected sepsis. Cultures are pending. Patient has no fever for the last 3 days. Leukocyte count today still mildly elevated at 16 but coming down from 21 yesterday. Electrolytes are improving. Patient remains in critical condition. 01/26 Patient remains in the ICU intubated and on mechanical ventilation He is currently covered with IV vancomycin and cefepime, for suspected pneumonia . Nasal culture growing MRSA and sputum culture growing Klebsiella pneumonia 01/27 Patient remains intubated and on mechanical ventilation without sedation. No abnormal movements noted He is afebrile and blood pressure holding well. WBCs 11. He still somewhat acidotic with pH 7.3 and pCO2 high 61. BMP and liver enzymes were unremarkable. Nasal screen is positive for MRSA sputum Culture is positive for Klebsiella CSF culture from pulmonary suction presumptive MRSA. However suspicion of ASSISTANT CREDIT MANAGER infection is very low as CSF sample showing no leukocytes, 0 WBC. Also sugar is high rather than low which goes against infection. And also his neck was supple on examined him on admission. I discussed with the staff the CSF sample waited more than 5 hours before it goes to the lab And chest x-ray showing significant pneumonia in the left lower lobe Currently he is on cefepime also on IV Keppra 01/29/2024 Patient is currently in the MICU. Intubated and on mechanical ventilator. Remains on IV hydration with D5 half-normal saline at 75 cc/h. Chest x-ray showed no acute cardiopulmonary process. Otherwise patient did have episodes of bright red blood per rectum and drop in hemoglobin level. He Protonix changed to twice daily and gastroenterology was consulted. Sputum cultures growing Klebsiella pneumoniae and being continued on cefepime. Nasals screen showed MRSA. CSF culture sh Gram stain and owed Staph aureus methicillin-resistant. Laboratory test showed WBC 14.5 hemoglobin 9.6 and platelets 130 sodium 140 potassium 4.0 chloride 109 bicarb is 28 BUN 18 and creatinine 0.32 and blood sugar 121 and calcium 7.6. Albumin 1.9. 01/30/2024 Patient in the MICU intubated and on mechanical ventilator. Mental status remains the same and patient is still encephalopathic. Patient received PRBC transfusion. No active rectal bleeding. Hemoglobin is fairly stable. GI is planning for colonoscopy tomorrow. Chest x-ray showed ongoing small left pleural effusion along with dense retrocardiac/left basilar opacity. Laboratory data showed WBC 17.1 hemoglobin 11.9 and platelets 126 sodium 145 potassium 3.8 chloride 117 bicarb is 29 BUN 20 and creatinine 0.34 and blood sugar 127 and calcium 8.1 and albumin 2.0. Patient remains on antibiotics in the form of cefepime. Sputum cultures growing Klebsiella pneumonia. ID and critical care team on board. 01/31/2024 Patient in the MICU. Intubated and is being continued on mechanical ventilator. Assist-control. ROS sedation is off and patient remains unresponsive to any stimuli. Chest x-ray today showed ongoing dense retrocardiac/left basilar opacity. Patient is scheduled for EGD and colonoscopy tomorrow due to GI bleed. No active bleeding at this time. Laboratory data showed WBC 12.1 hemoglobin 11.6 and platelets 142 sodium 143 potassium 3.5 chloride 117, BUN 22 and creatinine 0.14 blood sugar 116 and calcium 8.3 magnesium 1.6. Patient is being continued on antibiotics cefepime and metronidazole. IV hydration with D5 half-normal saline at 75 cc/h. 02/01/2024 Patient is a MICU. Intubated and on mechanical ventilator. Blood pressure is stable. Chest x-ray today showed interval development of near complete whiteout with volume loss left hemithorax. Correlate for mucous plugging and collapse. Patient underwent bronchoscopy and BAL suctioning of mucous plug from the left main bronchus. ROS hemoglobin is able. Mentation remains the same and patient is unresponsive to any stimuli. Continued on antibiotics of cefepime and metronidazole. Hemoglobin 10.2 today. Gastroenterology is planning for EGD and colonoscopy today. Laboratory data showed WBC 9.5 hemoglobin 10.2 and platelets 145 sodium 136 potassium 3.3 chloride 113 bicarb is 24 BUN 19 and creatinine 0.42 and blood sugar 97 magnesium 1.7. 02/02/2024 Patient is in MICU. Mental status remains the same and patient is unresponsive. He does have gag reflex. Chest x-ray this morning showed fairly similar appearance with small to moderate bilateral pleural effusions with adjacent atelectasis and/or consolidation, left greater than right. EGD showed mild distal esophagitis but no evidence of active upper GI bleed. Colonoscopy revealed some wall blood in the left colon and large amount of solid stool that was impacted in the rectum and thin mucosa in the rectum could not be adequately visualized. Possibility of stercoral ulcer in the rectum at the site of fecal impaction could not be excluded. The rest of the colon appeared normal with the scattered sigmoid diverticulosis. Laboratory showed WBC 7.1 hemoglobin 10.1 and platelets 118 sodium 139 potassium 3.3 magnesium 1.6 BUN 14 and creatinine 0.38 02/10/2024 Patient to the MICU. On mechanical ventilator via trach. Chest x-ray showed similar multifocal airspace opacities. Patient has been afebrile. Patient has completed antibiotics for pneumonia. Currently on IV Lasix 40 mg daily. Currently on DuoNebs. Tolerating tube feedings. Laboratory data showed WBC 8.8 hemoglobin 10.9 platelets 242 sodium 139 potassium 3.2 chloride 100 bicarbonate 36 BUN 15 and creatinine 0.51 magnesium 1.5 and albumin 2.5. Repeat CT was ordered today. Current medications reviewed. Objective - Vital Signs Vital signs: Vital Signs Temp 97.4 F L 02/10/24 08:00 Pulse 84 02/10/24 10:00 Resp 14 02/10/24 10:00 BP 128/74 02/10/24 10:00 Pulse Ox 95 02/10/24 10:00 FiO2 30 02/10/24 08:00 Intake & Output 02/09/24 02/10/24 02/10/24 18:59 06:59 18:59 Intake Total 395 540 280 Output Total 565 1070 480 Balance -170 -530 -200 Weight 79.6 kg 77.7 kg Intake: IV 265 220 130 0.9 @ 10 265 220 80 Magnesium Sulfate-D5w Pmx 50 1 gm In Dextrose/Water 1 100ml.bag @ 100 mls/hr IVPB Q1H [facility] Rx#: [id number] Tube Feeding 130 230 120 Other 90 30 Output: Urine 565 1070 480 Other: Voiding Method Indwelling Catheter Indwelling Catheter ABP, PAP, CO, CI - Last Documented Arterial Blood Pressure 121/54 - Exam - Exam --GENERAL: The patient is on mechanical ventilation HEENT: Pupils are round and equally reacting to light. No scleral icterus. No conjunctival pallor. atraumatic. No thyromegaly. CARDIOVASCULAR: S1 and S2 present. No murmurs, rubs, or gallops. PULMONARY: Chest is clear to auscultation, no wheezing , no crackles. ABDOMEN: Soft, nontender, nondistended, normoactive bowel sounds. No palpable organomegaly. MUSCULOSKELETAL: No joint swelling or deformity. EXTREMITIES: No cyanosis, clubbing, or pedal edema. NEUROLOGICAL: Patient remains unresponsive. Gross neurological examination did not reveal any focal deficits. SKIN: No rashes. no petechiae. - Labs CBC & Chem 7: 02/11/24 05:40 02/11/24 05:40 Labs: Abnormal Lab Results - Last 24 Hours (Table) 02/09/24 02/10/24 02/10/24 Range/Units 09:00 04:33 04:33 RBC 3.16 L (4.30-5.90) m/uL Hgb 10.5 L (13.0-17.5) gm/dL Hct 32.8 L (39.0-53.0) % MCV 103.9 H (80.0-100.0) fL RDW 16.4 H (11.5-15.5) % ABG pH (7.35-7.45) ABG pCO2 (35-45) mmHg ABG HCO3 (21-25) mmol/L ABG Total CO2 (19-24) mmol/L ABG O2 Saturation (94-97) % Hemoglobin (13.0-17.5) gm/dL Potassium 3.2 L (3.5-5.1) mmol/L Carbon Dioxide 36 H 36 H (22-30) mmol/L Creatinine 0.45 L 0.51 L (0.66-1.25) mg/dL Magnesium 1.5 L (1.6-2.3) mg/dL Total Protein 5.1 L (6.3-8.2) g/dL Albumin 2.5 L (3.5-5.0) g/dL 02/10/24 Range/Units 05:53 RBC (4.30-5.90) m/uL Hgb (13.0-17.5) gm/dL Hct (39.0-53.0) % MCV (80.0-100.0) fL RDW (11.5-15.5) % ABG pH 7.51 H (7.35-7.45) ABG pCO2 46 H (35-45) mmHg ABG HCO3 37 H (21-25) mmol/L ABG Total CO2 38 H (19-24) mmol/L ABG O2 Saturation 98.3 H (94-97) % Hemoglobin 10.5 L (13.0-17.5) gm/dL Potassium (3.5-5.1) mmol/L Carbon Dioxide (22-30) mmol/L Creatinine (0.66-1.25) mg/dL Magnesium (1.6-2.3) mg/dL Total Protein (6.3-8.2) g/dL Albumin (3.5-5.0) g/dL Assessment and Plan Assessment: Severe encephalopathy, could be multifactorial. Metabolic/toxic encephalopathy contributing, however no specified cause was found for his encephalopathy Acute hypoxic hypercapnic respiratory failure, patient unable to protect airway secondary to above, patient was intubated and mechanical ventilation with inability to wean-currently status post trach and PEG tube placement. Status post tracheostomy and PEG tube placement 02/06/2024, tube feedings have been initiated Suspected seizure-like activity on 01/24 x 2 Suspected sepsis. Secondary to pneumonia Acute GI bleed, improved Hypernatremia. Resolved Non-STEMI with elevated troponin with some EKG changes but patient denies chest pain. Acute kidney injury, improving History of depression, psychosis and suicidal ideation Severe dehydration and hypovolemia History of chronic left leg wound, currently wound is closed, no evidence of cellulitis but mild deformity in the muscles of the left leg Elevated lactic acid GI prophylaxis DVT prophylaxis Full code Plan: Continue with ICU management. Patient with multiple consultations following including continuing undergoing neurological workup. General surgery following as patient has unable to wean from mechanical ventilation and is status post PEG and trach placement. Tube feedings to be initiated. General surgery reevaluated tracheostomy site and placed 2 sutures. No air leak noted. Patient has undergone 3 failed attempts at weaning from the ventilator and working on transfer to LTAC. Patient requires insurance authorization which is currently pending. Infectious disease following and maintained on antibiotics and will finish course today and be monitored off antibiotics. Follow-up CBC as white count was elevated today. Social work following and has obtained legal guardianship and will await finalized report on that to discuss treatment plan moving forward and/or possible comfort measures Currently remains full code and underwent PEG and trach placement. Patient will require extensive rehab and continuous respiratory care. Due to multiple complex medical issues, overall prognosis is extremely poor and guarded at this time Time with Patient: Greater than 30
--- NOTE | 2024-02-11 22:38 | P.PN ---
Subjective Progress Note Date: 02/11/24 This is a pleasant 68 years old male with past medical history of psychosis and multiple admission for suicidal ideation, hypertension, osteoarthritis Patient brought to the emergency room because he was found by his roommate on the floor, hard to wake up. When he came to emergency room he was answering questions but looks like he is continued to be confused Patient currently opens eyes and follows simple commands but not all every command. Also he answers some questions. However he looks confused significantly. He is disoriented to time place and person. He has no insight. But he denies any pain. No headache. No dizziness. Moves arms and legs. No tingling. Patient on admission was tachycardic and tachypneic but afebrile He had mild leukocytosis, high hemoglobin at 25 and sodium 156 and creatinine 1.7. Liver enzymes moderately elevated Lactic acid 4.0 Troponin is elevated 0.09 Urine drug screen is negative Serum alcohol less than 10. CT of the head and neck is negative for acute process for either side Chest x-ray is negative for acute process and I reviewed the chest x-rays and agree EKG showing sinus tachycardia at [address] depression 01/21 Patient remains confused, he open eyes to verbal stimuli, he can tell me his name and then he goes back to sleep No abnormal movement Patient sodium 1 significantly elevated at 155, he was given D5W at 75 mL/h, repeat sodium this morning is still pending Patient looks dehydrated. Stablehand evaluated the patient for higher troponin which is thought secondary to dehydration however he has some ST depression in the lateral leads, religion department chair recommended heparin drip x 48 hours as well as metoprolol and Lipitor which are ordered. Yesterday I discussed the case with the neurologist on-call, he recommended to h oskar on consult since the patient has severe metabolic abnormality. This morning patient remains confused with no significant improvement therefore we are going to reconsult neurology service. He has elevated hemoglobin and hematocrit, most likely secondary to dehydration, keep following levels till sodium level corrected and then reassess. Abdomen looks soft, patient denies abdominal pain or chest pain. 01/22 Patient was moved to the ICU yesterday because of concerns about inability to protect airway He was able to breathe okay this morning. He remains severely confused He remains on D5W at 150 mL/h, sodium down to 152 today Creatinine back to reference range Repeat CT of the brain is negative Heparin drip was discontinued and patient placed on subcutaneous heparin 01/23 Patient is becoming more encephalopathic, he is nonverbal, does not follow command does not answer questions. This is despite correction of his hyponatremia and other metabolic abnormalities like acute kidney injury. And there is concerned about ability to protect airway so far he does not need intervention but close monitoring in the ICU Today patient underwent lumbar puncture and results Showing RBC is elevated at 28, nucleated cells are 0. Glucose slightly elevated 72 and protein 106. 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 He had EEG initially done which was unremarkable another EEG is requested today, patient was started on IV Keppra 1000 mg Also ABG shows evidence of acute hypoxic hypercapnic respiratory failure, patient was unable to protect his airway and he got intubated today. In the meantime there is no abnormal movement currently. He is afebrile this morning. Last fever was on 01/22 and it was 100 degrees which is low-grade. Labs showing leukocytosis worse 21.7, hemoglobin 18, platelet count is 188. pH 7.1, pCO2 is high at 95. Oxygen with pO2 of 86 while on 15 L. Sodium 137, potassium 3.3. Liver enzymes not significantly elevated. CSF culture permanent results are still pending 01/25 Patient yesterday could not protect his airway and he was intubated and placed on mechanical ventilation. Pulmonary/critical care team following closely and help with vent management. No seizure-like activity or abnormal movements noted. EEG done and reviewed. Neurologist on the case. Patient is currently on IV Keppra 1000 twice daily Also patient started on IV vancomycin and cefepime per ID team recommendation for suspected sepsis. Cultures are pending. Patient has no fever for the last 3 days. Leukocyte count today still mildly elevated at 16 but coming down from 21 yesterday. Electrolytes are improving. Patient remains in critical condition. 01/26 Patient remains in the ICU intubated and on mechanical ventilation He is currently covered with IV vancomycin and cefepime, for suspected pneumonia . Nasal culture growing MRSA and sputum culture growing Klebsiella pneumonia 01/27 Patient remains intubated and on mechanical ventilation without sedation. No abnormal movements noted He is afebrile and blood pressure holding well. WBCs 11. He still somewhat acidotic with pH 7.3 and pCO2 high 61. BMP and liver enzymes were unremarkable. Nasal screen is positive for MRSA sputum Culture is positive for Klebsiella CSF culture from pulmonary suction presumptive MRSA. However suspicion of CONTENT PUBLISHER infection is very low as CSF sample showing no leukocytes, 0 WBC. Also sugar is high rather than low which goes against infection. And also his neck was supple on examined him on admission. I discussed with the staff the CSF sample waited more than 5 hours before it goes to the lab And chest x-ray showing significant pneumonia in the left lower lobe Currently he is on cefepime also on IV Keppra 01/29/2024 Patient is currently in the MICU. Intubated and on mechanical ventilator. Remains on IV hydration with D5 half-normal saline at 75 cc/h. Chest x-ray showed no acute cardiopulmonary process. Otherwise patient did have episodes of bright red blood per rectum and drop in hemoglobin level. He Protonix changed to twice daily and gastroenterology was consulted. Sputum cultures growing Klebsiella pneumoniae and being continued on cefepime. Nasals screen showed MRSA. CSF culture sh Gram stain and owed Staph aureus methicillin-resistant. Laboratory test showed WBC 14.5 hemoglobin 9.6 and platelets 130 sodium 140 potassium 4.0 chloride 109 bicarb is 28 BUN 18 and creatinine 0.32 and blood sugar 121 and calcium 7.6. Albumin 1.9. 01/30/2024 Patient in the MICU intubated and on mechanical ventilator. Mental status remains the same and patient is still encephalopathic. Patient received PRBC transfusion. No active rectal bleeding. Hemoglobin is fairly stable. GI is planning for colonoscopy tomorrow. Chest x-ray showed ongoing small left pleural effusion along with dense retrocardiac/left basilar opacity. Laboratory data showed WBC 17.1 hemoglobin 11.9 and platelets 126 sodium 145 potassium 3.8 chloride 117 bicarb is 29 BUN 20 and creatinine 0.34 and blood sugar 127 and calcium 8.1 and albumin 2.0. Patient remains on antibiotics in the form of cefepime. Sputum cultures growing Klebsiella pneumonia. ID and critical care team on board. 01/31/2024 Patient in the MICU. Intubated and is being continued on mechanical ventilator. Assist-control. ROS sedation is off and patient remains unresponsive to any stimuli. Chest x-ray today showed ongoing dense retrocardiac/left basilar opacity. Patient is scheduled for EGD and colonoscopy tomorrow due to GI bleed. No active bleeding at this time. Laboratory data showed WBC 12.1 hemoglobin 11.6 and platelets 142 sodium 143 potassium 3.5 chloride 117, BUN 22 and creatinine 0.14 blood sugar 116 and calcium 8.3 magnesium 1.6. Patient is being continued on antibiotics cefepime and metronidazole. IV hydration with D5 half-normal saline at 75 cc/h. 02/01/2024 Patient is a MICU. Intubated and on mechanical ventilator. Blood pressure is stable. Chest x-ray today showed interval development of near complete whiteout with volume loss left hemithorax. Correlate for mucous plugging and collapse. Patient underwent bronchoscopy and BAL suctioning of mucous plug from the left main bronchus. ROS hemoglobin is able. Mentation remains the same and patient is unresponsive to any stimuli. Continued on antibiotics of cefepime and metronidazole. Hemoglobin 10.2 today. Gastroenterology is planning for EGD and colonoscopy today. Laboratory data showed WBC 9.5 hemoglobin 10.2 and platelets 145 sodium 136 potassium 3.3 chloride 113 bicarb is 24 BUN 19 and creatinine 0.42 and blood sugar 97 magnesium 1.7. 02/02/2024 Patient is in MICU. Mental status remains the same and patient is unresponsive. He does have gag reflex. Chest x-ray this morning showed fairly similar appearance with small to moderate bilateral pleural effusions with adjacent atelectasis and/or consolidation, left greater than right. EGD showed mild distal esophagitis but no evidence of active upper GI bleed. Colonoscopy revealed some wall blood in the left colon and large amount of solid stool that was impacted in the rectum and thin mucosa in the rectum could not be adequately visualized. Possibility of stercoral ulcer in the rectum at the site of fecal impaction could not be excluded. The rest of the colon appeared normal with the scattered sigmoid diverticulosis. Laboratory showed WBC 7.1 hemoglobin 10.1 and platelets 118 sodium 139 potassium 3.3 magnesium 1.6 BUN 14 and creatinine 0.38 02/10/2024 Patient to the MICU. On mechanical ventilator via trach. Chest x-ray showed similar multifocal airspace opacities. Patient has been afebrile. Patient has completed antibiotics for pneumonia. Currently on IV Lasix 40 mg daily. Currently on DuoNebs. Tolerating tube feedings. Laboratory data showed WBC 8.8 hemoglobin 10.9 platelets 242 sodium 139 potassium 3.2 chloride 100 bicarbonate 36 BUN 15 and creatinine 0.51 magnesium 1.5 and albumin 2.5. Repeat CT was ordered today. 02/11/2024 Patient is in the MICU. On mechanical ventilator with assist control. Patient still nonresponsive. Repeat CT head showed no acute intracranial process. Moderate paraspinal sinus disease. Ostiomeatal complexes, frontal nasal and sphenoethmoidal recess are all patent. Chest x-ray today showed stable exam given differences in technique. Blood- tinged left costophrenic angle possibly secondary to small pleural effusion. Laboratory data showed WBC 9.0 hemoglobin 10.4 and platelets 228 sodium 137 potassium 3.1 chloride 101 bicarb 35 BUN 13 and creatinine 0.36 and magnesium 1.5. Neurology and critical care team on board. Current medications reviewed. Objective - Vital Signs Vital signs: Vital Signs Temp 98.8 F 02/11/24 20:00 Pulse 89 02/11/24 20:00 Resp 16 02/11/24 20:00 BP 130/77 02/11/24 20:00 Pulse Ox 97 02/11/24 20:00 FiO2 30 02/11/24 20:00 Intake & Output 02/11/24 02/11/24 02/12/24 06:59 18:59 06:59 Intake Total 1262 192 Output Total 1700 45 Balance -438 147 Weight Intake: IV 440 40 0.9 @ 10 240 40 Magnesium Sulfate-D5w Pmx 200 1 gm In Dextrose/Water 1 100ml.bag @ 100 mls/hr IVPB Q1H [facility] Rx#: [id number] Tube Feeding 732 122 Other 90 30 Output: Urine 1700 45 Other: Voiding Method Indwelling Catheter Indwelling Catheter ABP, PAP, CO, CI - Last Documented Arterial Blood Pressure 121/54 - Exam - Exam --GENERAL: The patient is on mechanical ventilation HEENT: Pupils are round and equally reacting to light. No scleral icterus. No conjunctival pallor. atraumatic. No thyromegaly. CARDIOVASCULAR: S1 and S2 present. No murmurs, rubs, or gallops. PULMONARY: Chest is clear to auscultation, no wheezing , no crackles. ABDOMEN: Soft, nontender, nondistended, normoactive bowel sounds. No palpable organomegaly. MUSCULOSKELETAL: No joint swelling or deformity. EXTREMITIES: No cyanosis, clubbing, or pedal edema. NEUROLOGICAL: Patient remains unresponsive. Gross neurological examination did not reveal any focal deficits. SKIN: No rashes. no petechiae. - Labs CBC & Chem 7: 02/11/24 05:40 02/11/24 05:40 Labs: Abnormal Lab Results - Last 24 Hours (Table) 02/11/24 02/11/24 02/11/24 Range/Units 05:40 05:40 06:18 RBC 3.06 L (4.30-5.90) m/uL Hgb 10.4 L (13.0-17.5) gm/dL Hct 31.8 L (39.0-53.0) % MCV 103.8 H (80.0-100.0) fL RDW 16.2 H (11.5-15.5) % ABG pH 7.51 H (7.35-7.45) ABG pCO2 48 H (35-45) mmHg ABG HCO3 38 H (21-25) mmol/L ABG Total CO2 40 H (19-24) mmol/L ABG O2 Saturation 98.9 H (94-97) % Hemoglobin 10.5 L (13.0-17.5) gm/dL Potassium 3.1 L (3.5-5.1) mmol/L Carbon Dioxide 35 H (22-30) mmol/L Creatinine 0.36 L (0.66-1.25) mg/dL Magnesium 1.5 L (1.6-2.3) mg/dL Assessment and Plan Assessment: Severe encephalopathy, could be multifactorial. Metabolic/toxic encephalopathy contributing, however no specified cause was found for his encephalopathy Acute hypoxic hypercapnic respiratory failure, patient unable to protect airway secondary to above, patient was intubated and mechanical ventilation with inability to wean-currently status post trach and PEG tube placement. Status post tracheostomy and PEG tube placement 02/06/2024, tube feedings have been initiated Suspected seizure-like activity on 01/24 x 2 Suspected sepsis. Secondary to pneumonia Acute GI bleed, improved Hypernatremia. Resolved Non-STEMI with elevated troponin with some EKG changes but patient denies chest pain. Acute kidney injury, improving History of depression, psychosis and suicidal ideation Severe dehydration and hypovolemia History of chronic left leg wound, currently wound is closed, no evidence of cellulitis but mild deformity in the muscles of the left leg Elevated lactic acid GI prophylaxis DVT prophylaxis Full code Plan: Continue with ICU management. Patient with multiple consultations following including continuing undergoing neurological workup. Repeat CT showed no acute process. Patient is is status post PEG and trach placement. Tube feedings to be initiate d. General surgery reevaluated tracheostomy site and placed 2 sutures. No air leak noted. Patient has undergone 3 failed attempts at weaning from the ventilator and working on transfer to LTAC. Patient requires insurance authorization which is currently pending. Infectious disease following and maintained on antibiotics and will finish course today and be monitored off antibiotics. Follow-up CBC as white count was elevated today. Social work following and has obtained legal guardianship and will await finalized report on that to discuss treatment plan moving forward and/or possible comfort measures Currently remains full code and underwent PEG and trach placement. Patient will require extensive rehab and continuous respiratory care. Due to multiple complex medical issues, overall prognosis is extremely poor and guarded at this time Time with Patient: Greater than 30
[2024-02-11 22:57] LABS: Glucose,Whole Blood 126 mg/dL (70-110)
[2024-02-12 05:57] LABS: Glucose,Whole Blood 107 mg/dL (70-110)
[2024-02-12 06:12] LABS: HCT 33.8 % (39.0-53.0); HGB 10.7 gm/dL (13.0-17.5); Hypochromasia Moderate; MCH 33.5 pg (25.0-35.0); MCHC 31.8 g/dL (31.0-37.0); MCV 105.4 fL (80.0-100.0); Macrocytosis Moderate; Mean Platelet Volume 9.1; Platelet Count 230 k/uL (150-450); RBC 3.21 m/uL (4.30-5.90); RDW 15.3 % (11.5-15.5); WBC 10.4 k/uL (3.8-10.6)
[2024-02-12 06:20] LABS: ABG Base Excess 13.4 mmol/L; ABG HCO3 38 mmol/L (21-25); ABG Oxygen Saturation 98.8 % (94-97); ABG PCO2 47 mmHg (35-45); ABG PH 7.52 (7.35-7.45); ABG PO2 104 mmHg (83-108); ABG TCO2 39 mmol/L (19-24); Allen Test Performed? Yes
[2024-02-12 06:31] LABS: African American GFR (CKD) >90 (>60 ml/min/1.73 sqM); Anion Gap 3 mmol/L; Blood Urea Nitrogen 11 mg/dL (9-20); Calcium 8.7 mg/dL (8.4-10.2); Carbon Dioxide 36 mmol/L (22-30); Chloride 99 mmol/L (98-107); Glucose 96 mg/dL (74-99); Magnesium 1.8 mg/dL (1.6-2.3); Non-African American GFR(CKD) >90 (>60 ml/min/1.73 sqM); Potassium 3.4 mmol/L (3.5-5.1); Sodium 138 mmol/L (137-145)
[2024-02-12] MEDS: MAGNESIUM SULFATE-D5W PMX 1 GM in DEXTROSE/WATER 1 100ML.BAG IVPB ONE (06:48)
--- NOTE | 2024-02-12 07:28 | XR ---
EXAMINATION TYPE: XR chest 1V portable DATE OF EXAM: 02/12/2024 4:59 AM COMPARISON: 02/11/2024 CLINICAL INDICATION: Male, 68 years old with history of trach to vent, TECHNIQUE: XR chest 1V portable view(s) obtained. FINDINGS: The heart size is normal. The pulmonary vasculature is normal. There is opacification in the retrocardiac region with silhouetting of the left diaphragm. Correlate for pleural effusion. Tracheostomy tube is midline IMPRESSION: 1. Clinical correlation recommended for left lower lung field pleural effusion [facility], , 02/12/2024 7:26 AM
[2024-02-12] MEDS: FUROSEMIDE 40 MG TAB PO SCH (09:53)
[2024-02-12] MEDS: POTASSIUM BICARBONATE/CIT AC 20 MEQ TABLET.EFF NG-TUBE SCH (09:54)
[2024-02-12 11:03] LABS: Glucose,Whole Blood 128 mg/dL (70-110)
[2024-02-12] MEDS: LACTULOSE 20 GM/30 ML CUP PO SCH (11:32)
--- NOTE | 2024-02-12 12:04 | P.PN ---
Subjective Progress Note Date: 02/12/24 CHIEF COMPLAINT: Aspiration pneumonia HISTORY OF PRESENT ILLNESS: Patient remains in the ICU on mechanical ventilation. Patient is status post tracheostomy and PEG tube placement on 02/06/24. Patient is status post EGD and colonoscopy with GI service on 01/31. Results had shown mild distal esophagitis no active bleed and colonoscopy had reported old blood in the left colon and a large amount of solid stool that was impacted in the rectum. Has had multiple bowel movements. Abdominal x-ray completed reported no evidence for fecal impaction. Last bowel movement was yesterday, 02/06. Patient is tolerating tube feeds. Tube feeds at 60 mL/h. Hemoglobin stable at 10.7 PHYSICAL EXAM: VITAL SIGNS: Reviewed. GENERAL: no acute distress. HEENT: Tracheostomy site is intact. No drainage. Tracheostomy site with sutures ABDOMEN: Soft. Nondistended. Nontender. Peg tube site clean dry and intact ASSESSMENT: 1. Acute lower GI bleed status post EGD and colonoscopy 2. Fecal impaction resolved 3. Aspiration pneumonia PLAN: -Continue tube feeds -Lactulose daily added for constipation -Awaiting insurance authorization for possible transfer to LTAC Physician Refractory Tile Helper note has been reviewed by physician. Signing provider agrees with the documented findings, assessment, and plan of care. Objective - Vital Signs Vital signs: Vital Signs Temp 98.1 F 02/12/24 04:00 Pulse 68 02/12/24 11:15 Resp 14 02/12/24 07:00 BP 147/88 02/12/24 07:00 Pulse Ox 95 02/12/24 07:00 FiO2 30 02/12/24 11:00 Intake & Output 02/11/24 02/12/24 02/12/24 18:59 06:59 18:59 Intake Total 1262 918 81 Output Total 1700 400 45 Balance -438 518 36 Weight 75.4 kg Intake: IV 440 400 20 0.9 @ 10 240 200 20 Magnesium Sulfate-D5w Pmx 200 200 1 gm In Dextrose/Water 1 100ml.bag @ 100 mls/hr IVPB Q1H [facility] Rx#: [id number] Tube Feeding 732 488 61 Other 90 30 Output: Urine 1700 400 45 Other: Voiding Method Indwelling Catheter Indwelling Catheter ABP, PAP, CO, CI - Last Documented Arterial Blood Pressure 121/54 - Labs CBC & Chem 7: 02/12/24 05:18 11/04/24 05:18 Labs: Abnormal Lab Results - Last 24 Hours (Table) 02/11/24 02/12/24 02/12/24 Range/Units 22:56 05:18 05:18 RBC 3.21 L (4.30-5.90) m/uL Hgb 10.7 L (13.0-17.5) gm/dL Hct 33.8 L (39.0-53.0) % MCV 105.4 H (80.0-100.0) fL ABG pH (7.35-7.45) ABG pCO2 (35-45) mmHg ABG HCO3 (21-25) mmol/L ABG Total CO2 (19-24) mmol/L ABG O2 Saturation (94-97) % Hemoglobin (13.0-17.5) gm/dL Potassium 3.4 L (3.5-5.1) mmol/L Carbon Dioxide 36 H (22-30) mmol/L Creatinine 0.31 L (0.66-1.25) mg/dL POC Glucose (mg/dL) 126 H (70-110) mg/dL 02/12/24 02/12/24 Range/Units 06:18 11:01 RBC (4.30-5.90) m/uL Hgb (13.0-17.5) gm/dL Hct (39.0-53.0) % MCV (80.0-100.0) fL ABG pH 7.52 H (7.35-7.45) ABG pCO2 47 H (35-45) mmHg ABG HCO3 38 H (21-25) mmol/L ABG Total CO2 39 H (19-24) mmol/L ABG O2 Saturation 98.8 H (94-97) % Hemoglobin 10.6 L (13.0-17.5) gm/dL Potassium (3.5-5.1) mmol/L Carbon Dioxide (22-30) mmol/L Creatinine (0.66-1.25) mg/dL POC Glucose (mg/dL) 128 H (70-110) mg/dL
--- NOTE | 2024-02-12 12:26 | P.PN ---
Subjective Progress Note Date: 02/12/24 Principal diagnosis: Reason for follow-up is sepsis possible aspiration pneumonia Patient is a 68-year-old male with a past medical history significant for COPD hypertension AL osteoarthritis patient did have a history of necrotizing infection of the left lower extremity with initial admission to hospital mental status changes subsequently have worsening of his respiratory status requiring intubation and concern for possible aspiration pneumonia.Patient did have a EGD with evidence of esophagitis colonoscopy possibility of stercoral ulcer in the rectum On today's evaluation that is 02/12/2024, Patient is afebrile this morning patient remains to be elevated on the vent through the trach patient is hemodynamically stable FiO2 is currently stable at 30% no other changes reported by the nursing staff. Patient white count is 10.4, creatinine 0.31 Objective - Vital Signs Vital signs: Vital Signs Temp 98.1 F 02/12/24 04:00 Pulse 67 02/12/24 08:04 Resp 14 02/12/24 07:00 BP 147/88 02/12/24 07:00 Pulse Ox 95 02/12/24 07:00 FiO2 30 02/12/24 08:00 Intake & Output 02/11/24 02/12/24 02/12/24 18:59 06:59 18:59 Intake Total 1262 918 81 Output Total 1700 400 45 Balance -438 518 36 Weight 75.4 kg Intake: IV 440 400 20 0.9 @ 10 240 200 20 Magnesium Sulfate-D5w Pmx 200 200 1 gm In Dextrose/Water 1 100ml.bag @ 100 mls/hr IVPB Q1H [facility] Rx#: [id number] Tube Feeding 732 488 61 Other 90 30 Output: Urine 1700 400 45 Other: Voiding Method Indwelling Catheter Indwelling Catheter ABP, PAP, CO, CI - Last Documented Arterial Blood Pressure 121/54 - Exam GENERAL DESCRIPTION: An elderly male intubated through the trach RESPIRATORY SYSTEM: Unlabored breathing , decreased breath sounds at bases HEART: S1 S2 regular rate and rhythm , ABDOMEN: Soft , no tenderness EXTREMITIES: No edema feet - Labs CBC & Chem 7: 02/12/24 05:18 02/12/24 05:18 Labs: Abnormal Lab Results - Last 24 Hours (Table) 02/11/24 02/12/24 02/12/24 Range/Units 22:56 05:18 05:18 RBC 3.21 L (4.30-5.90) m/uL Hgb 10.7 L (13.0-17.5) gm/dL Hct 33.8 L (39.0-53.0) % MCV 105.4 H (80.0-100.0) fL ABG pH (7.35-7.45) ABG pCO2 (35-45) mmHg ABG HCO3 (21-25) mmol/L ABG Total CO2 (19-24) mmol/L ABG O2 Saturation (94-97) % Hemoglobin (13.0-17.5) gm/dL Potassium 3.4 L (3.5-5.1) mmol/L Carbon Dioxide 36 H (22-30) mmol/L Creatinine 0.31 L (0.66-1.25) mg/dL POC Glucose (mg/dL) 126 H (70-110) mg/dL 02/12/24 Range/Units 06:18 RBC (4.30-5.90) m/uL Hgb (13.0-17.5) gm/dL Hct (39.0-53.0) % MCV (80.0-100.0) fL ABG pH 7.52 H (7.35-7.45) ABG pCO2 47 H (35-45) mmHg ABG HCO3 38 H (21-25) mmol/L ABG Total CO2 39 H (19-24) mmol/L ABG O2 Saturation 98.8 H (94-97) % Hemoglobin 10.6 L (13.0-17.5) gm/dL Potassium (3.5-5.1) mmol/L Carbon Dioxide (22-30) mmol/L Creatinine (0.66-1.25) mg/dL POC Glucose (mg/dL) (70-110) mg/dL Assessment and Plan (1) Aspiration pneumonia Current Visit: Yes Status: Acute Code(s): J69.0 - PNEUMONITIS DUE TO INHA LATION OF FOOD AND VOMIT SNOMED Code(s): 607796175 (2) Leukocytosis Current Visit: Yes Status: Acute Code(s): D72.829 - ELEVATED WHITE BLOOD CELL COUNT, UNSPECIFIED SNOMED Code(s): 929236101 (3) Allergy to multiple antibiotics Current Visit: No Status: Acute Code(s): Z88.1 - ALLERGY STATUS TO OTHER ANTIBIOTIC AGENTS SNOMED Code(s): 055072372 Plan: 1patient with an episode of sepsis in this patient who did have significant evaded white count patient also have mild hypotension and source is likely aspiration pneumonitis, sputum culture positive for Klebsiella and patient has received adequate by therapy for underlying Klebsiella pneumonia 2- patient CSF culture growing presumptive MRSA however CSF white count was 0 and glucose was normal at 72 more likely representing contamination rather than true infection 3patient subsequently did have issues with elevated white count source likely GI and the patient white count did respond to the cefepime followed by Rocephin and Flagyl, patient will complete his IV Rocephin and Flagyl as of 02/09/2024 4patient has been afebrile patient white count has normalized we will monitor closely off antibiotic therapy at this point Dictation was produced using gripNote dictation software. please excuse any grammatical, word or spelling errors. Time with Patient: Less than 30
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
[2024-02-12 17:02] LABS: Glucose,Whole Blood 84 mg/dL (70-110)
[2024-02-12] MEDS: CHLORHEXIDINE GLUCONATE 15 ML CUP MUCOUS MEM SCH (20:13)
[2024-02-12] MEDS: levETIRAcetam ORAL SOLN 500 MG/5 ML CUP PO SCH (20:13)
[2024-02-12 23:47] LABS: Glucose,Whole Blood 120 mg/dL (70-110)
[2024-02-13 05:42] LABS: ABG Base Excess 11.5 mmol/L; ABG HCO3 36 mmol/L (21-25); ABG Oxygen Saturation 97.2 % (94-97); ABG PCO2 45 mmHg (35-45); ABG PH 7.51 (7.35-7.45); ABG PO2 83 mmHg (83-108); ABG TCO2 37 mmol/L (19-24); Allen Test Performed? Yes
[2024-02-13 05:57] LABS: HCT 33.5 % (39.0-53.0); HGB 10.7 gm/dL (13.0-17.5); MCH 33.6 pg (25.0-35.0); MCHC 31.8 g/dL (31.0-37.0); MCV 105.6 fL (80.0-100.0); Macrocytosis Moderate; Mean Platelet Volume 8.9; Platelet Count 200 k/uL (150-450); RBC 3.17 m/uL (4.30-5.90); WBC 9.1 k/uL (3.8-10.6)
[2024-02-13 06:07] LABS: African American GFR (CKD) >90 (>60 ml/min/1.73 sqM); Anion Gap 3 mmol/L; Blood Urea Nitrogen 13 mg/dL (9-20); Calcium 8.9 mg/dL (8.4-10.2); Carbon Dioxide 32 mmol/L (22-30); Chloride 102 mmol/L (98-107); Glucose 108 mg/dL (74-99); Magnesium 1.3 mg/dL (1.6-2.3); Non-African American GFR(CKD) >90 (>60 ml/min/1.73 sqM); Potassium 3.4 mmol/L (3.5-5.1); Sodium 137 mmol/L (137-145)
[2024-02-13] MEDS ORDERED: Potassium Replacement Protocol 1 EACH MISC MISCELLANE PRN (06:20)
[2024-02-13] MEDS ORDERED: Magnesium Replacement Protocol 1 EACH MISC MISCELLANE PRN (06:20)
--- NOTE | 2024-02-13 06:23 | P.PN ---
Subjective Progress Note Date: 02/12/24 This is a pleasant 68 years old male with past medical history of psychosis and multiple admission for suicidal ideation, hypertension, osteoarthritis Patient brought to the emergency room because he was found by his roommate on the floor, hard to wake up. When he came to emergency room he was answering questions but looks like he is continued to be confused Patient currently opens eyes and follows simple commands but not all every command. Also he answers some questions. However he looks confused significantly. He is disoriented to time place and person. He has no insight. But he denies any pain. No headache. No dizziness. Moves arms and legs. No tingling. Patient on admission was tachycardic and tachypneic but afebrile He had mild leukocytosis, high hemoglobin at 25 and sodium 156 and creatinine 1.7. Liver enzymes moderately elevated Lactic acid 4.0 Troponin is elevated 0.09 Urine drug screen is negative Serum alcohol less than 10. CT of the head and neck is negative for acute process for either side Chest x-ray is negative for acute process and I reviewed the chest x-rays and agree EKG showing sinus tachycardia at [address] depression 01/21 Patient remains confused, he open eyes to verbal stimuli, he can tell me his name and then he goes back to sleep No abnormal movement Patient sodium 1 significantly elevated at 155, he was given D5W at 75 mL/h, rep eat sodium this morning is still pending Patient looks dehydrated. Healthcare Applications Analyst evaluated the patient for higher troponin which is thought secondary to dehydration however he has some ST depression in the lateral leads, examiner rating clerk recommended heparin drip x 48 hours as well as metoprolol and Lipit or which are ordered. Yesterday I discussed the case with the neurologist on-call, he recommended to hold on consult since the patient has severe metabolic abnormality. This morning patient remains confused with no significant improvement therefore we are going to reconsult neurology service. He has elevated hemoglobin and hematocrit, most likely secondary to dehydration, keep following levels till sodium level corrected and then reassess. Abdomen looks soft, patient denies abdominal pain or chest pain. 01/22 Patient was moved to the ICU yesterday because of concerns about inability to protect airway He was able to breathe okay this morning. He remains severely confused He remains on D5W at 150 mL/h, sodium down to 152 today Creatinine back to reference range Repeat CT of the brain is negative Heparin drip was discontinued and patient placed on subcutaneous heparin 01/23 Patient is becoming more encephalopathic, he is nonverbal, does not follow command does not answer questions. This is despite correction of his hyponatremia and other metabolic abnormalities like acute kidney injury. And there is concerned about ability to protect airway so far he does not need intervention but close monitoring in the ICU Today patient underwent lumbar puncture and results Showing RBC is elevated at 28, nucleated cells are 0. Glucose slightly elevated 72 and protein 106. 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 He had EEG initially done which was unremarkable another EEG is requested today, patient was started on IV Keppra 1000 mg Also ABG shows evidence of acute hypoxic hypercapnic respiratory failure, patient was unable to protect his airway and he got intubated today. In the meantime there is no abnormal movement currently. He is afebrile this morning. Last fever was on 01/22 and it was 100 degrees which is low-grade. Labs showing leukocytosis worse 21.7, hemoglobin 18, platelet count is 188. pH 7.1, pCO2 is high at 95. Oxygen with pO2 of 86 while on 15 L. Sodium 137, potassium 3.3. Liver enzymes not significantly elevated. CSF culture permanent results are still pending 01/25 Patient yesterday could not protect his airway and he was intubated and placed on mechanical ventilation. Pulmonary/critical care team following closely and help with vent management. No seizure-like activity or abnormal movements noted. EEG done and reviewed. Neurologist on the case. Patient is currently on IV Keppra 1000 twice daily Also patient started on IV vancomycin and cefepime per ID team recommendation for suspected sepsis. Cultures are pending. Patient has no fever for the last 3 days. Leukocyte count today still mildly elevated at 16 but coming down from 21 yesterday. Electrolytes are improving. Patient remains in critical condition. 01/26 Patient remains in the ICU intubated and on mechanical ventilation He is currently covered with IV vancomycin and cefepime, for suspected pneumon ia. Nasal culture growing MRSA and sputum culture growing Klebsiella pneumonia 01/27 Patient remains intubated and on mechanical ventilation without sedation. No abnormal movements noted He is afebrile and blood pressure holding well. WBCs 11. He still somewhat acidotic with pH 7.3 and pCO2 high 61. BMP and liver enzymes were unremarkable. Nasal screen is positive for MRSA sputum Culture is positive for Klebsiella CSF culture from pulmonary suction presumptive MRSA. 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 Also sugar is high rather than low which goes against infection. And also his neck was supple on examined him on admission. I discussed with the staff the CSF sample waited more than 5 hours before it goes to the lab And chest x-ray showing significant pneumonia in the left lower lobe Currently he is on cefepime also on IV Keppra 02/02 I am assuming the care of the patient today. He remains in the ICU intubated and with no much improvement in his encephalopathy The exact cause of his encephalopathy is unknown. Pulmonary team on the case. Patient may benefit from tracheostomy and PEG tube replacement. Pending legal guardianship determination on Monday He keeps covered with antibiotic currently with ceftriaxone and [facility] Surgery team were following the case for recent GI bleed. Currently looks stable 02/03 Patient on mechanical ventilation, is currently intubated. Still severely encephalopathic Afebrile and vital stable No leukocytosis and hemoglobin 10.2. BMP is unremarkable. Patient will be evaluated for tracheostomy and PEG tube placement after legal guardianship determination 02/05/2024 Patient is seen in follow-up continues in the ICU on mechanical ventilation and difficult weaning planning for PEG and trach tentatively 02/06/2024. Patient was awaiting an appointed guardian and social work following going to court today. Discussed also possible comfort measures. Patient continues on mechanical ventilation and continuing to undergo neurological workup. Repeat CT brain is ordered and pending. 02/06/2024 Patient is seen in follow-up today and has received a public guardian and remains full code at this time with plans on receiving PEG tube and tracheostomy today with general surgery. Patient will require 3 attempts at weaning off the vent prior to [facility] accepting the patient. Neurology following as patient remains minimally responsive and follow-up CT was negative and patient is off sedation. 02/07/2024 Patient is seen in follow-up today with multiple consultations following maintained in the ICU status post PEG and trach placement with general surgery. Patient to initiate tube feedings today per dietary recommendations and will monitor for tolerance. Patient's abdomen appeared distended and abdominal x-ray done showing no acute process. Patient is maintained on scheduled bowel movement and has had 3 bowel movements today. Continue as needed bowel regimen. Plan is for possibly [facility] in the next few days and will require trials and failures of weaning from ventilation 02/08/2024 Patient is seen in follow-up today has received a tracheostomy and PEG tube. Tube feedings are to start. Per nursing staff when attempting to wean patient desats quickly becomes extremely tachycardic and hypoxic. General surgery following and will be initiating on tube feedings and will continue with hoffman pportive care. Patient undergoing neurological workup and scheduled to undergo EEG. Patient does have a significant past medical history of extensive right lower extremity wound although appears stable at this time. 02/09/2024 Patient is seen and evaluated in follow-up today continues on mechanical ventilation via tracheostomy and also is continued on tube feeds. Patient has had 3 failed trial attempts at weaning from the vent and working on possible transfer to [facility] for further ongoing continued respiratory care. Patient is maintained on antibiotics with infectious disease following and will be finishing antibiotics today and being closely monitored. Follow-up on repeat CBC to monitor the white count. Patient also undergoing neurological workup. Patient remains off sedation as patient is minimally responsive 02/12/2024 Patient continues in the ICU on mechanical ventilation via tracheostomy awaiting to go to [facility]. Per social work insurance requiring peer to peer for authorization which needs to be performed by 02/13/2024. Patient has had 3 consecutive failed trial attempts at weaning from the vent and will continue. Multiple consultations following. Electrolytes to be replaced per protocol. Review of systems: Unable to obtain as patient is on mechanical ventilation and unresponsive Physical exam: GENERAL: The patient is intubated on mechanical ventilation via tracheostomy, ill-appearing, elderly appearing HEENT: Pupils are round and equally reacting to light. EOMI. No scleral icterus. No conjunctival pallor. Normocephalic, atraumatic. No pharyngeal erythema. No thyromegaly. Tracheostomy noted CARDIOVASCULAR: S1 and S2 muffled PULMONARY: Diminished breath sounds bilaterally with some bronchial congestion otherwise chest is clear to auscultation, no wheezing , no crackles. ABDOMEN: Soft, obese, nontender, nondistended, normoactive bowel sounds. No palpable organomegaly. PEG tube noted MUSCULOSKELETAL: No joint swelling or deformity. EXTREMITIES: No cyanosis, clubbing, bilateral upper extremity edema, 2+ pitting NEUROLOGICAL: Gross neurological examination did not reveal any focal deficits. Could not completely assess as patient is on mechanical ventilation and unresponsive SKIN: No rashes. no petechiae. Edematous Assessment: Severe encephalopathy, could be multifactorial. Metabolic/toxic encephalopathy contributing, however no specified cause was found for his encephalopathy Acute hypoxic hypercapnic respiratory failure, patient unable to protect airway secondary to above, s/p intubation and mechanical ventilation with inability to wean, Status post tracheostomy and PEG tube placement 02/06/2024, tube feedings have been initiated Suspected seizure-like activity on 01/24 x 2 Suspected sepsis. Secondary to pneumonia Acute GI bleed, improved Hypernatremia. Resolved Non-STEMI with elevated troponin with some EKG changes but patient denies chest pain. Acute kidney injury, improving History of depression, psychosis and suicidal ideation Severe dehydration and hypovolemia History of chronic left leg wound, currently wound is closed, no evidence of cellulitis but mild deformity in the muscles of the left leg Elevated lactic acid GI prophylaxis DVT prophylaxis Full code Plan: Continue with ICU management. Patient with multiple consultations following including continuing undergoing neurological workup. General surgery following as patient has unable to wean from mechanical ventilation and is status post PEG and trach placement. Tube feedings to be initiated. General surgery reevaluat ed tracheostomy site and placed 2 sutures. No air leak noted. Patient has undergone 3 failed attempts at weaning from the ventilator and working on transfer to LTAC. Patient requires insurance authorization which is currently pending. And also requiring peer to peer which needs to be done prior to noon on 02/13/2024 Infectious disease following and maintained on antibiotics and will finish cour se today and be monitored off antibiotics. Follow-up CBC as white count was elevated today. Social work following and has obtained legal guardianship and will await finalized report on that to discuss treatment plan moving forward and/or possible comfort measures Currently remains full code and underwent PEG and trach placement. Patient will require extensive rehab and continuous respiratory care. Due to multiple complex medical issues, overall prognosis is extremely poor and guarded at this time The impression and plan of care has been dictated by Carol Toney, Nurse Practitioner as directed. Dr. Debi MD I have performed a history and examination and MDM of this patient, discussed the same with the dictator, and agree with the dictator's assessment and plan as written ,documented as a scribe. Based on total visit time, I have performed more than 50% of the visit. Objective - Vital Signs Vital signs: Vital Signs Temp 98.1 F 02/12/24 04:00 Pulse 67 02/12/24 08:04 Resp 14 02/12/24 07:00 BP 147/88 02/12/24 07:00 Pulse Ox 95 02/12/24 07:00 FiO2 30 02/12/24 08:00 Intake & Output 02/11/24 02/12/24 02/12/24 18:59 06:59 18:59 Intake Total 1262 918 81 Output Total 1700 400 45 Balance -438 518 36 Weight 75.4 kg Intake: IV 440 400 20 0.9 @ 10 240 200 20 Magnesium Sulfate-D5w Pmx 200 200 1 gm In Dextrose/Water 1 100ml.bag @ 100 mls/hr IVPB Q1H [facility] Rx#: [id number] Tube Feeding 732 [id number] 61 Other 90 30 Output: Urine 1700 400 45 Other: Voiding Method Indwelling Catheter Indwelling Catheter ABP, PAP, CO, CI - Last Documented Arterial Blood Pressure 121/54 - Labs CBC & Chem 7: 02/13/24 05:30 02/13/24 05:30 Labs: Abnormal Lab Results - Last 24 Hours (Table) 02/11/24 02/12/24 02/12/24 Range/Units 22:56 05:18 05:18 RBC 3.21 L (4.30-5.90) m/uL Hgb 10.7 L (13.0-17.5) gm/dL Hct 33.8 L (39.0-53.0) % MCV 105.4 H (80.0-100.0) fL ABG pH (7.35-7.45) ABG pCO2 (35-45) mmHg ABG HCO3 (21-25) mmol/L ABG Total CO2 (19-24) mmol/L ABG O2 Saturation (94-97) % Hemoglobin (13.0-17.5) gm/dL Potassium 3.4 L (3.5-5.1) mmol/L Carbon Dioxide 36 H (22-30) mmol/L Creatinine 0.31 L (0.66-1.25) mg/dL POC Glucose (mg/dL) 126 H (70-110) mg/dL 02/12/24 Range/Units 06:18 RBC (4.30-5.90) m/uL Hgb (13.0-17.5) gm/dL Hct (39.0-53.0) % MCV (80.0-100.0) fL ABG pH 7.52 H (7.35-7.45) ABG pCO2 47 H (35-45) mmHg ABG HCO3 38 H (21-25) mmol/L ABG Total CO2 39 H (19-24) mmol/L ABG O2 Saturation 98.8 H (94-97) % Hemoglobin 10.6 L (13.0-17.5) gm/dL Potassium (3.5-5.1) mmol/L Carbon Dioxide (22-30) mmol/L Creatinine (0.66-1.25) mg/dL POC Glucose (mg/dL) (70-110) mg/dL
[2024-02-13] MEDS: MAGNESIUM SULFATE-D5W PMX 1 GM in DEXTROSE/WATER 1 100ML.BAG IVPB SCH (06:56)
--- NOTE | 2024-02-13 07:47 | XR ---
EXAMINATION TYPE: XR chest 1V portable DATE OF EXAM: 02/13/2024 COMPARISON: 02/12/2024 CLINICAL INDICATION: Male, 68 years old with history of trach; , TECHNIQUE: XR chest 1V portable views of the chest. FINDINGS: Left-sided consolidation and pleural effusion stable. Heart size stable. Right lung clear. Tracheosto my tube stable. Atherosclerotic change aorta. Degenerative changes spine. IMPRESSION: 1. Stable left lower lobe infiltrate and small effusion.. [facility], , 02/13/2024 7:44 AM
[2024-02-13] MEDS: POTASSIUM BICARBONATE/CIT AC 20 MEQ TABLET.EFF PO SCH (08:22)
[2024-02-13] MEDS: POTASSIUM BICARBONATE/CIT AC 20 MEQ TABLET.EFF NG-TUBE SCH (10:51)
[2024-02-13 11:04] LABS: Glucose,Whole Blood 109 mg/dL (70-110)
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
--- NOTE | 2024-02-13 14:48 | P.PN ---
Subjective Progress Note Date: 02/13/24 This is a pleasant 68 years old male with past medical history of psychosis and multiple admission for suicidal ideation, hypertension, osteoarthritis Patient brought to the emergency room because he was found by his roommate on the floor, hard to wake up. When he came to emergency room he was answering questions but looks like he is continued to be confused Patient currently opens eyes and follows simple commands but not all every command. Also he answers some questions. However he looks confused significantly. He is disoriented to time place and person. He has no insight. But he denies any pain. No headache. No dizziness. Moves arms and legs. No tingling. Patient on admission was tachycardic and tachypneic but afebrile He had mild leukocytosis, high hemoglobin at 25 and sodium 156 and creatinine 1.7. Liver enzymes moderately elevated Lactic acid 4.0 Troponin is elevated 0.09 Urine drug screen is negative Serum alcohol less than 10. CT of the head and neck is negative for acute process for either side Chest x-ray is negative for acute process and I reviewed the chest x-rays and agree EKG showing sinus tachycardia at [address] depression 01/21 Patient remains confused, he open eyes to verbal stimuli, he can tell me his name and then he goes back to sleep No abnormal movement Patient sodium 1 significantly elevated at 155, he was given D5W at 75 mL/h, rep eat sodium this morning is still pending Patient looks dehydrated. Event Promoter evaluated the patient for higher troponin which is thought secondary to dehydration however he has some ST depression in the lateral leads, card scraper recommended heparin drip x 48 hours as well as metoprolol and Lipit or which are ordered. Yesterday I discussed the case with the neurologist on-call, he recommended to hold on consult since the patient has severe metabolic abnormality. This morning patient remains confused with no significant improvement therefore we are going to reconsult neurology service. He has elevated hemoglobin and hematocrit, most likely secondary to dehydration, keep following levels till sodium level corrected and then reassess. Abdomen looks soft, patient denies abdominal pain or chest pain. 01/22 Patient was moved to the ICU yesterday because of concerns about inability to protect airway He was able to breathe okay this morning. He remains severely confused He remains on D5W at 150 mL/h, sodium down to 152 today Creatinine back to reference range Repeat CT of the brain is negative Heparin drip was discontinued and patient placed on subcutaneous heparin 01/23 Patient is becoming more encephalopathic, he is nonverbal, does not follow command does not answer questions. This is despite correction of his hyponatremia and other metabolic abnormalities like acute kidney injury. And there is concerned about ability to protect airway so far he does not need intervention but close monitoring in the ICU Today patient underwent lumbar puncture and results Showing RBC is elevated at 28, nucleated cells are 0. Glucose slightly elevated 72 and protein 106. Cultures pending Also patient has low-grade fever and is Amandeep concentrated sample of CBC improved except for WBC remains elevated about 15.1 K, neurology service recommended to consider ID team, Patient is also history of suicidal ideation however his urine drug screen on admission showed only marijuana Prognosis remains guarded 01/24 Patient early childhood associate desaturated down to 70s associated with brief period of rigidness and shakiness and his eyes were wide open, this episode happened twice and lasted for short time seconds to minutes. He had EEG initially done which was unremarkable another EEG is requested today, patient was started on IV Keppra 1000 mg Also ABG shows evidence of acute hypoxic hypercapnic respiratory failure, patient was unable to protect his airway and he got intubated today. In the meantime there is no abnormal movement currently. He is afebrile this morning. Last fever was on 01/22 and it was 100 degrees which is low-grade. Labs showing leukocytosis worse 21.7, hemoglobin 18, platelet count is 188. pH 7.1, pCO2 is high at 95. Oxygen with pO2 of 86 while on 15 L. Sodium 137, potassium 3.3. Liver enzymes not significantly elevated. CSF culture permanent results are still pending 01/25 Patient yesterday could not protect his airway and he was intubated and placed on mechanical ventilation. Pulmonary/critical care team following closely and help with vent management. No seizure-like activity or abnormal movements noted. EEG done and reviewed. Neurologist on the case. Patient is currently on IV Keppra 1000 twice daily Also patient started on IV vancomycin and cefepime per ID team recommendation for suspected sepsis. Cultures are pending. Patient has no fever for the last 3 days. Leukocyte count today still mildly elevated at 16 but coming down from 21 yesterday. Electrolytes are improving. Patient remains in critical condition. 01/26 Patient remains in the ICU intubated and on mechanical ventilation He is currently covered with IV vancomycin and cefepime, for suspected pneumon ia. Nasal culture growing MRSA and sputum culture growing Klebsiella pneumonia 01/27 Patient remains intubated and on mechanical ventilation without sedation. No abnormal movements noted He is afebrile and blood pressure holding well. WBCs 11. He still somewhat acidotic with pH 7.3 and pCO2 high 61. BMP and liver enzymes were unremarkable. Nasal screen is positive for MRSA sputum Culture is positive for Klebsiella CSF culture from pulmonary suction presumptive MRSA. However suspicion of A P MECHANIC infection is very low as CSF sample showing no leukocytes, 0 WBC. Also sugar is high rather than low which goes against infection. And also his neck was supple on examined him on admission. I discussed with the staff the CSF sample waited more than 5 hours before it goes to the lab And chest x-ray showing significant pneumonia in the left lower lobe Currently he is on cefepime also on IV Keppra 02/02 I am assuming the care of the patient today. He remains in the ICU intubated and with no much improvement in his encephalopathy The exact cause of his encephalopathy is unknown. Pulmonary team on the case. Patient may benefit from tracheostomy and PEG tube replacement. Pending legal guardianship determination on Monday He keeps covered with antibiotic currently with ceftriaxone and [facility] Surgery team were following the case for recent GI bleed. Currently looks stable 02/03 Patient on mechanical ventilation, is currently intubated. Still severely encephalopathic Afebrile and vital stable No leukocytosis and hemoglobin 10.2. BMP is unremarkable. Patient will be evaluated for tracheostomy and PEG tube placement after legal guardianship determination 02/05/2024 Patient is seen in follow-up continues in the ICU on mechanical ventilation and difficult weaning planning for PEG and trach tentatively 02/06/2024. Patient was awaiting an appointed guardian and social work following going to court today. Discussed also possible comfort measures. Patient continues on mechanical ventilation and continuing to undergo neurological workup. Repeat CT brain is ordered and pending. 02/06/2024 Patient is seen in follow-up today and has received a public guardian and remains full code at this time with plans on receiving PEG tube and tracheostomy today with general surgery. Patient will require 3 attempts at weaning off the vent prior to [facility] accepting the patient. Neurology following as patient remains minimally responsive and follow-up CT was negative and patient is off sedation. 02/07/2024 Patient is seen in follow-up today with multiple consultations following maintained in the ICU status post PEG and trach placement with general surgery. Patient to initiate tube feedings today per dietary recommendations and will monitor for tolerance. Patient's abdomen appeared distended and abdominal x-ray done showing no acute process. Patient is maintained on scheduled bowel movement and has had 3 bowel movements today. Continue as needed bowel regimen. Plan is for possibly [facility] in the next few days and will require trials and failures of weaning from ventilation 02/08/2024 Patient is seen in follow-up today has received a tracheostomy and PEG tube. Tube feedings are to start. Per nursing staff when attempting to wean patient desats quickly becomes extremely tachycardic and hypoxic. General surgery following and will be initiating on tube feedings and will continue with hoffman pportive care. Patient undergoing neurological workup and scheduled to undergo EEG. Patient does have a significant past medical history of extensive right lower extremity wound although appears stable at this time. 02/09/2024 Patient is seen and evaluated in follow-up today continues on mechanical ventilation via tracheostomy and also is continued on tube feeds. Patient has had 3 failed trial attempts at weaning from the vent and working on possible transfer to [facility] for further ongoing continued respiratory care. Patient is maintained on antibiotics with infectious disease following and will be finishing antibiotics today and being closely monitored. Follow-up on repeat CBC to monitor the white count. Patient also undergoing neurological workup. Patient remains off sedation as patient is minimally responsive 02/12/2024 Patient continues in the ICU on mechanical ventilation via tracheostomy awaiting to go to [facility]. Per social work insurance requiring peer to peer for authorization which needs to be performed by 02/13/2024. Patient has had 3 consecutive failed trial attempts at weaning from the vent and will continue. Multiple consultations following. Electrolytes to be replaced per protocol. 02/13/2024 Patient is seen in follow-up today continues in the ICU on mechanical ventilation. Attempted peer to peer review with insurance and was denied reporting they feel he is more appropriate for long-term at a vent assisted facility as his mentation continues to be the same. Patient does show facial grimace to pain although does not follow any commands. Attempting to wean is ongoing from the vent and will await pulmonary further evaluation. Patient is afebrile with no acute overnight events noted. Will discuss further with social work/case management regarding discharge planning. Review of systems: Unable to obtain as patient is on mechanical ventilation and unresponsive Physical exam: GENERAL: The patient is intubated on mechanical ventilation via tracheostomy, ill-appearing, elderly appearing HEENT: Pupils are round and equally reacting to light. EOMI. No scleral icterus. No conjunctival pallor. Normocephalic, atraumatic. No pharyngeal erythema. No thyromegaly. Tracheostomy noted CARDIOVASCULAR: S1 and S2 muffled PULMONARY: Diminished breath sounds bilaterally with some bronchial congestion otherwise chest is clear to auscultation, no wheezing , no crackles. ABDOMEN: Soft, obese, nontender, nondistended, normoactive bowel sounds. No palpable organomegaly. PEG tube noted MUSCULOSKELETAL: No joint swelling or deformity. EXTREMITIES: No cyanosis, clubbing, bilateral upper extremity edema, 2+ pitting NEUROLOGICAL: Gross neurological examination did not reveal any focal deficits. Could not completely assess as patient is on mechanical ventilation and unresponsive SKIN: No rashes. no petechiae. Edematous Assessment: Severe encephalopathy, could be multifactorial. Metabolic/toxic encephalopathy contributing, however no specified cause was found for his encephalopathy Acute hypoxic hypercapnic respiratory failure, patient unable to protect airway secondary to above, s/p intubation and mechanical ventilation with inability to wean, Status post tracheostomy and PEG tube placement 02/06/2024, tube feedings have been initiated Suspected seizure-like activity on 01/24 x 2 Suspected sepsis. Secondary to pneumonia Acute GI bleed, improved Hypernatremia. Resolved Non-STEMI with elevated troponin with some EKG changes but patient denies chest pain. Acute kidney injury, improving History of depression, psychosis and suicidal ideation Severe dehydration and hypovolemia History of chronic left leg wound, currently wound is closed, no evidence of cellulitis but mild deformity in the muscles of the left leg Elevated lactic acid GI prophylaxis DVT prophylaxis Full code Plan: Continue with ICU management. Patient with multiple consultations following including continuing undergoing neurological workup. General surgery following as patient has unable to wean from mechanical ventilation and is status post PEG and trach placement. Tube feedings to be initiated. General surgery reevaluated tracheostomy site and placed 2 sutures. No air leak noted. Patient has undergone 3 failed attempts at weaning from the ventilator and working on transfer to LTAC. Patient requires insurance authorization which is currently pending. Attempted peer to peer with Dr. Robles today and patient was deemed more appropriate for a long-term vent assisted care facility rather than LTAC as his mentation continues to be unresponsive and not following commands. Infectious disease following and has completed antibiotics and is being be monitored off antibiotics. Follow-up CBC as white count was elevated today. Social work following and has obtained legal guardianship and will await finalized report on that to discuss treatment plan moving forward and/or possible comfort measures. Patient was not approved for [facility] and insurance recommending long-term care at a ventilator appropriate facility Currently remains full code and underwent PEG and trach placement. Tolerating tube feeds and working on weaning from mechanical ventilation as tolerated Patient will require extensive rehab and continuous respiratory care. Due to multiple complex medical issues, overall prognosis is extremely poor and guarded at this time The impression and plan of care has been dictated by Carol Toney, Nurse Practitioner as directed. Dr. Azucena MD I have performed a history and examination and MDM of this patient, discussed the same with the dictator, and agree with the dictator's assessment and plan as written ,documented as a scribe. Based on total visit time, I have performed more than 50% of the visit. Objective - Vital Signs Vital signs: Vital Signs Temp 97.5 F L 02/13/24 12:00 Pulse 82 02/13/24 14:00 Resp 14 02/13/24 14:00 BP 149/87 02/13/24 14:00 Pulse Ox 98 02/13/24 14:00 FiO2 30 02/13/24 13:00 Intake & Output 02/12/24 02/13/24 02/13/24 18:59 06:59 18:59 Intake Total 899 695 6478 Output Total 345 315 850 Balance 524 606 378 Weight 77.3 kg 77.3 kg Intake: IV 260 220 160 0.9 @ 10 260 220 160 Oral 520 Tube Feeding 549 671 488 Other 60 30 60 Output: Urine 345 315 850 Other: Voiding Method Indwelling Catheter Indwelling Catheter Indwelling Catheter # Bowel Movements 1 ABP, PAP, CO, CI - Last Documented Arterial Blood Pressure 121/54 - Labs CBC & Chem 7: 02/13/24 05:30 02/13/24 05:30 Labs: Abnormal Lab Results - Last 24 Hours (Table) 02/12/24 02/13/24 02/13/24 Range/Units 23:46 05:30 05:30 RBC 3.17 L (4.30-5.90) m/uL Hgb 10.7 L (13.0-17.5) gm/dL Hct 33.5 L (39.0-53.0) % MCV 105.6 H (80.0-100.0) fL RDW 16.0 H (11.5-15.5) % ABG pH (7.35-7.45) ABG HCO3 (21-25) mmol/L ABG Total CO2 (19-24) mmol/L ABG O2 Saturation (94-97) % Hemoglobin (13.0-17.5) gm/dL Potassium 3.4 L (3.5-5.1) mmol/L Carbon Dioxide 32 H (22-30) mmol/L Creatinine 0.27 L (0.66-1.25) mg/dL Glucose 108 H (74-99) mg/dL POC Glucose (mg/dL) 120 H (70-110) mg/dL Magnesium 1.3 L (1.6-2.3) mg/dL 02/13/24 Range/Units 05:38 RBC (4.30-5.90) m/uL Hgb (13.0-17.5) gm/dL Hct (39.0-53.0) % MCV (80.0-100.0) fL RDW (11.5-15.5) % ABG pH 7.51 H (7.35-7.45) ABG HCO3 36 H (21-25) mmol/L ABG Total CO2 37 H (19-24) mmol/L ABG O2 Saturation 97.2 H (94-97) % Hemoglobin 10.8 L (13.0-17.5) gm/dL Potassium (3.5-5.1) mmol/L Carbon Dioxide (22-30) mmol/L Creatinine (0.66-1.25) mg/dL Glucose (74-99) mg/dL POC Glucose (mg/dL) (70-110) mg/dL Magnesium (1.6-2.3) mg/dL
[2024-02-13 15:13] LABS: Magnesium 1.9 mg/dL (1.6-2.3); Potassium 4.2 mmol/L (3.5-5.1)
--- NOTE | 2024-02-13 15:44 | P.PN ---
Progress Note - Text Progress Note Date: 02/13/24 HISTORY OF PRESENT ILLNESS: No acute events overnight. Tube feeds were held for high residuals likely related to constipation. Patient is status post tracheostomy and PEG tube placement on 02/06/24. Patient is status post EGD and colonoscopy with GI service on 01/31. Results had shown mild distal esophagitis no active bleed and colonoscopy had reported old blood in the left colon and a large amount of solid stool that was impacted in the rectum. PHYSICAL EXAM: VITAL SIGNS: Reviewed. GENERAL: no acute distress. HEENT: Tracheostomy site is intact. No drainage. Tracheostomy site with sutures ABDOMEN: Soft. Nondistended. Nontender. Peg tube site clean dry and intact ASSESSMENT: 1. Acute lower GI bleed status post EGD and colonoscopy 2. Fecal impaction resolved 3. Aspiration pneumonia PLAN: -Continue tube feeds -Lactulose daily added for constipation Chiki Rubio [facility] [phone]
[2024-02-13] MEDS: MAGNESIUM SULFATE-D5W PMX 1 GM in DEXTROSE/WATER 1 100ML.BAG IVPB ONE (15:51)
[2024-02-13 17:36] LABS: Glucose,Whole Blood 125 mg/dL (70-110)
--- NOTE | 2024-02-13 21:21 | P.PN ---
Subjective Progress Note Date: 02/13/24 Principal diagnosis: Reason for follow-up is sepsis possible aspiration pneumonia Patient is a 68-year-old male with a past medical history significant for COPD hypertension SC osteoarthritis patient did have a history of necrotizing infection of the left lower extremity with initial admission to hospital mental status changes subsequently have worsening of his respiratory status requiring intubation and concern for possible aspiration pneumonia.Patient did have a EGD with evidence of esophagitis colonoscopy possibility of stercoral ulcer in the rectum On today's evaluation that is 02/13/2024,the patient continues to be afebrile patient remains to be intubated on the vent through the trach FiO2 is currently stable at 30% no significant purulent secretion through the ET patient is hemodynamic stable not requiring any pressor support and no diarrhea has been reported by the nursing staff. His white count is 9.1 creatinine 0.27 Objective - Vital Signs Vital signs: Vital Signs Temp 97.5 F L 02/13/24 12:00 Pulse 82 02/13/24 12:37 Resp 10 L 02/13/24 12:00 BP 152/85 02/13/24 12:00 Pulse Ox 98 02/13/24 12:00 FiO2 30 02/13/24 12:35 Intake & Output 02/12/24 02/13/24 02/13/24 18:59 06:59 18:59 Intake Total 146 597 7368 Output Total 345 315 550 Balance 524 606 516 Weight 77.3 kg 77.3 kg Intake: IV 260 220 120 0.9 @ 10 260 220 120 Oral 520 Tube Feeding 549 671 366 Other 60 30 60 Output: Urine 345 315 550 Other: Voiding Method Indwelling Catheter Indwelling Catheter Indwelling Catheter # Bowel Movements 1 ABP, PAP, CO, CI - Last Documented Arterial Blood Pressure 121/54 - Exam GENERAL DESCRIPTION: An elderly male intubated through the trach RESPIRATORY SYSTEM: Unlabored breathing , decreased breath sounds at bases HEART: S1 S2 regular rate and rhythm , ABDOMEN: Soft , no tenderness EXTREMITIES: No edema feet - Labs CBC & Chem 7: 02/13/24 05:30 02/13/24 14:42 Labs: Abnormal Lab Results - Last 24 Hours (Table) 02/12/24 02/13/24 02/13/24 Range/Units 23:46 05:30 05:30 RBC 3.17 L (4.30-5.90) m/uL Hgb 10.7 L (13.0-17.5) gm/dL Hct 33.5 L (39.0-53.0) % MCV 105.6 H (80.0-100.0) fL RDW 16.0 H (11.5-15.5) % ABG pH (7.35-7.45) ABG HCO3 (21-25) mmol/L ABG Total CO2 (19-24) mmol/L ABG O2 Saturation (94-97) % Hemoglobin (13.0-17.5) gm/dL Potassium 3.4 L (3.5-5.1) mmol/L Carbon Dioxide 32 H (22-30) mmol/L Creatinine 0.27 L (0.66-1.25) mg/dL Glucose 108 H (74-99) mg/dL POC Glucose (mg/dL) 120 H (70-110) mg/dL Magnesium 1.3 L (1.6-2.3) mg/dL 02/13/24 Range/Units 05:38 RBC (4.30-5.90) m/uL Hgb (13.0-17.5) gm/dL Hct (39.0-53.0) % MCV (80.0-100.0) fL RDW (11.5-15.5) % ABG pH 7.51 H (7.35-7.45) ABG HCO3 36 H (21-25) mmol/L ABG Total CO2 37 H (19-24) mmol/L ABG O2 Saturation 97.2 H (94-97) % Hemoglobin 10.8 L (13.0-17.5) gm/dL Potassium (3.5-5.1) mmol/L Carbon Dioxide (22-30) mmol/L Creatinine (0.66-1.25) mg/dL Glucose (74-99) mg/dL POC Glucose (mg/dL) (70-110) mg/dL Magnesium (1.6-2.3) mg/dL Assessment and Plan (1) Aspiration pneumonia Current Visit: Yes Status: Acute Code(s): J69.0 - PNEUMONITIS DUE TO INHALATION OF FOOD AND VOMIT SNOMED Code(s): 657414199 (2) Leukocytosis Current Visit: Yes Status: Acute Code(s): D72.829 - ELEVATED WHITE BLOOD CELL COUNT, UNSPECIFIED SNOMED Code(s): 403829914 (3) Allergy to multiple antibiotics Current Visit: No Status: Acute Code(s): Z88.1 - ALLERGY STATUS TO OTHER ANTIBIOTIC AGENTS SNOMED Code(s): 509889178 Plan: 1patient with an episode of sepsis in this patient who did have significant evaded white count patient also have mild hypotension and source is likely aspiration pneumonitis, sputum culture positive for Klebsiella and patient has received adequate by therapy for underlying Klebsiella pneumonia 2- patient CSF culture growing presumptive MRSA however CSF white count was 0 and glucose was normal at 72 more likely representing contamination rather than true infection 3patient subsequently did have issues with elevated white count source likely GI and the patient white count did respond to the cefepime followed by Rocephin and Flagyl, patient will complete his IV Rocephin and Flagyl as of 02/09/2024 4patient continues to be afebrile white count has been normal will monitor closely off antibiotic at this point Dictation was produced using [employer] dictation software. please excuse any grammatical, word or spelling errors. Time with Patient: Less than 30
[2024-02-13 23:31] LABS: Glucose,Whole Blood 96 mg/dL (70-110)
[2024-02-14 05:31] LABS: Glucose,Whole Blood 112 mg/dL (70-110)
[2024-02-14 05:47] LABS: Allen Test Performed? Yes
[2024-02-14 05:49] LABS: ABG HCO3 33 mmol/L (21-25); ABG Oxygen Saturation 97.2 % (94-97); ABG PCO2 42 mmHg (35-45); ABG PO2 84 mmHg (83-108); ABG TCO2 34 mmol/L (19-24)
[2024-02-14 06:14] LABS: Basophils % (A) 0 %; Eosinophils # (A) 0.2 k/uL (0-0.7); Eosinophils % (A) 2 %; HCT 33.5 % (39.0-53.0); HGB 10.6 gm/dL (13.0-17.5); Hypochromasia Slight; Lymphocytes # (A) 1.2 k/uL (1.0-4.8); Lymphocytes % (A) 13 %; MCH 33.3 pg (25.0-35.0); MCHC 31.7 g/dL (31.0-37.0); Macrocytosis Moderate; Mean Platelet Volume 8.5; Monocytes # (A) 0.5 k/uL (0-1.0); Monocytes % (A) 5 %; Neutrophils # (A) 7.6 k/uL (1.3-7.7); Neutrophils % (A) 78 %; Platelet Count 236 k/uL (150-450); RBC 3.19 m/uL (4.30-5.90); RDW 15.5 % (11.5-15.5); WBC 9.7 k/uL (3.8-10.6)
[2024-02-14 06:36] LABS: African American GFR (CKD) >90 (>60 ml/min/1.73 sqM); Anion Gap 1 mmol/L; Blood Urea Nitrogen 7 mg/dL (9-20); Calcium 8.6 mg/dL (8.4-10.2); Carbon Dioxide 29 mmol/L (22-30); Chloride 102 mmol/L (98-107); Glucose 99 mg/dL (74-99); Magnesium 1.4 mg/dL (1.6-2.3); Non-African American GFR(CKD) >90 (>60 ml/min/1.73 sqM); Potassium 3.9 mmol/L (3.5-5.1); Sodium 132 mmol/L (137-145)
[2024-02-14] MEDS: MAGNESIUM SULFATE-D5W PMX 1 GM in DEXTROSE/WATER 1 100ML.BAG IVPB SCH (06:51)
--- NOTE | 2024-02-14 07:41 | XR ---
EXAMINATION TYPE: XR chest 1V portable DATE OF EXAM: 02/14/2024 COMPARISON: 02/13/2024 CLINICAL INDICATION: Male, 68 years old with history of pneumonia; , TECHNIQUE: XR chest 1V portable views of the chest. FINDINGS: Exam limited by patient rotation. Left-sided consolidation and pleural effusion stable. Heart size st able. Right lung clear. Tracheostomy tube stable. Atherosclerotic change aorta. Degenerative changes spine. IMPRESSION: 1. Stable left lower lobe consolidation and small pleural effusion. [facility], , 02/14/2024 7:39 AM
[2024-02-14] MEDS: bisacodyL 10 MG SUPP RECTAL SCH (09:27)
[2024-02-14] MEDS: POTASSIUM BICARBONATE/CIT AC 20 MEQ TABLET.EFF NG-TUBE SCH (09:32)
[2024-02-14 10:41] LABS: Amorphous Sediment,Urine Rare /hpf; Appearance,Urine Turbid (Clear); Bilirubin,Urine Negative (Negative); Blood,Urine Small (Negative); Color,Urine Colorless; Glucose,Urine (UA) Negative (Negative); Hyaline Casts,Urine 3 /lpf (0-2); Ketones,Urine Negative (Negative); Leukocyte Esterase,Urine Negative (Negative); Mucus,Urine Rare /hpf; Nitrite,Urine Negative (Negative); Protein,Urine Negative (Negative); RBC,Urine 8 /hpf (0-5); Specific Gravity,Urine 1.004 (1.001-1.035); Urobilinogen,Urine <2.0 mg/dL (<2.0); WBC,Urine 2 /hpf (0-5)
[2024-02-14 11:36] LABS: Glucose,Whole Blood 101 mg/dL (70-110)
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
[2024-02-14 11:51] LABS: Glucose,Whole Blood 100 mg/dL (70-110)
--- NOTE | 2024-02-14 13:09 | P.PN ---
Subjective Progress Note Date: 02/14/24 Patient seen and examined at bedside. Seems to be having high residuals with tube feeding. Started on Reglan. Bowel regimen in place. Objective - Vital Signs Vital signs: Vital Signs Temp 98.0 F 02/14/24 12:00 Pulse 93 02/14/24 12:00 Resp 11 L 02/14/24 12:00 BP 138/80 02/14/24 12:00 Pulse Ox 98 02/14/24 12:00 FiO2 30 02/14/24 12:00 Intake & Output 02/13/24 02/14/24 02/14/24 18:59 06:59 18:59 Intake Total 1963 819 484 Output Total 1115 875 680 Balance 848 -56 -196 Weight 77.3 kg 78.2 kg 78.2 kg Intake: IV 560 240 180 0.9 @ 10 260 240 80 Magnesium Sulfate-D5w Pmx 300 100 1 gm In Dextrose/Water 1 100ml.bag @ 100 mls/hr IVPB ONCE ONE Rx#: [id number] Oral 520 Tube Feeding 793 549 244 Other 90 30 60 Output: Urine 1115 775 680 Stool 100 Other: Voiding Method Indwelling Catheter Indwelling Catheter Indwelling Catheter ABP, PAP, CO, CI - Last Documented Arterial Blood Pressure 121/54 - Constitutional General appearance: Present: no acute distress - Neck Details: Tracheostomy in place - Gastrointestinal Gastrointestinal Comment(s): Soft, nontender - Labs CBC & Chem 7: 02/14/24 05:57 02/14/24 05:57 Labs: Abnormal Lab Results - Last 24 Hours (Table) 02/13/24 02/14/24 02/14/24 Range/Units 17:35 05:29 05:42 RBC (4.30-5.90) m/uL Hgb (13.0-17.5) gm/dL Hct (39.0-53.0) % MCV (80.0-100.0) fL ABG pH 7.50 H (7.35-7.45) ABG HCO3 33 H (21-25) mmol/L ABG Total CO2 34 H (19-24) mmol/L ABG O2 Saturation 97.2 H (94-97) % Hemoglobin 10.5 L (13.0-17.5) gm/dL Sodium (137-145) mmol/L BUN (9-20) mg/dL Creatinine (0.66-1.25) mg/dL POC Glucose (mg/dL) 125 H 112 H (70-110) mg/dL Magnesium (1.6-2.3) mg/dL Urine Blood (Negative) Urine RBC (0-5) /hpf Amorphous Sediment (None) /hpf Hyaline Casts (0-2) /lpf Urine Mucus (None) /hpf 02/14/24 02/14/24 02/14/24 Range/Units 05:57 05:57 10:15 RBC 3.19 L (4.30-5.90) m/uL Hgb 10.6 L (13.0-17.5) gm/dL Hct 33.5 L (39.0-53.0) % MCV 105.0 H (80.0-100.0) fL ABG pH (7.35-7.45) ABG HCO3 (21-25) mmol/L ABG Total CO2 (19-24) mmol/L ABG O2 Saturation (94-97) % Hemoglobin (13.0-17.5) gm/dL Sodium 132 L (137-145) mmol/L BUN 7 L (9-20) mg/dL Creatinine 0.30 L (0.66-1.25) mg/dL POC Glucose (mg/dL) (70-110) mg/dL Magnesium 1.4 L (1.6-2.3) mg/dL Urine Blood Small H (Negative) Urine RBC 8 H (0-5) /hpf Amorphous Sediment Rare H (None) /hpf Hyaline Casts 3 H (0-2) /lpf Urine Mucus Rare H (None) /hpf Assessment and Plan Plan: 68-year-old male with GI bleed that appears to be resolving. Status post tracheostomy and PEG tube placement. PEG tube feedings were held secondary to residuals. Patient to be continued on Reglan and restart tube feeds as patient tolerates. Continue vent per ICU.
--- NOTE | 2024-02-14 16:09 | XR ---
EXAMINATION TYPE: XR abdomen 1V DATE OF EXAM: 02/14/2024 4:01 PM COMPARISON: 02/07/2024 CLINICAL INDICATION: Male, 68 years old with history of abdominal distention; [facility] TECHNIQUE: One radiographic view of the abdomen was obtained. FINDINGS: Left upper quadrant peg tube. Gaseous dilation of large bowel. The bowel gas pattern is non specific without dilated loops of small or large bowel. . Fecal material and gas are demonstrated thr oughout the colon and rectum. There is no evidence for organomegaly or pneumoperitoneum. The osseous structures are intact. No ab normal calcifications are present. IMPRESSION: 1. Gaseous dilation of large bowel, otherwise Nonspecific bowel gas pattern without radiographic rg dence for acute process. 2. PEG tube present. [facility], , 02/14/2024 4:07 PM
[2024-02-14 17:09] LABS: Glucose,Whole Blood 86 mg/dL (70-110)
[2024-02-14] MEDS: levETIRAcetam 500 MG TAB PO ONE (20:47)
[2024-02-14 23:21] LABS: Glucose,Whole Blood 90 mg/dL (70-110)
[2024-02-15 03:11] LABS: Basophils % (A) 0 %; Eosinophils # (A) 0.3 k/uL (0-0.7); Eosinophils % (A) 2 %; HCT 33.2 % (39.0-53.0); HGB 10.6 gm/dL (13.0-17.5); Hypochromasia Slight; Lymphocytes # (A) 1.3 k/uL (1.0-4.8); Lymphocytes % (A) 11 %; MCH 33.8 pg (25.0-35.0); MCV 105.8 fL (80.0-100.0); Macrocytosis Moderate; Mean Platelet Volume 8.4; Monocytes # (A) 0.7 k/uL (0-1.0); Monocytes % (A) 6 %; Neutrophils # (A) 9.2 k/uL (1.3-7.7); Neutrophils % (A) 79 %; Platelet Count 239 k/uL (150-450); RBC 3.14 m/uL (4.30-5.90); RDW 15.3 % (11.5-15.5); WBC 11.7 k/uL (3.8-10.6)
[2024-02-15 03:41] LABS: African American GFR (CKD) >90 (>60 ml/min/1.73 sqM); Anion Gap 4 mmol/L; Blood Urea Nitrogen 6 mg/dL (9-20); Calcium 9.2 mg/dL (8.4-10.2); Carbon Dioxide 28 mmol/L (22-30); Chloride 106 mmol/L (98-107); Glucose 87 mg/dL (74-99); Magnesium 1.4 mg/dL (1.6-2.3); Non-African American GFR(CKD) >90 (>60 ml/min/1.73 sqM); Potassium 4.1 mmol/L (3.5-5.1); Sodium 138 mmol/L (137-145)
--- NOTE | 2024-02-15 04:40 | P.PN ---
Subjective Progress Note Date: 02/14/24 This is a pleasant 68 years old male with past medical history of psychosis and multiple admission for suicidal ideation, hypertension, osteoarthritis Patient brought to the emergency room because he was found by his roommate on the floor, hard to wake up. When he came to emergency room he was answering questions but looks like he is continued to be confused Patient currently opens eyes and follows simple commands but not all every command. Also he answers some questions. However he looks confused significantly. He is disoriented to time place and person. He has no insight. But he denies any pain. No headache. No dizziness. Moves arms and legs. No tingling. Patient on admission was tachycardic and tachypneic but afebrile He had mild leukocytosis, high hemoglobin at 25 and sodium 156 and creatinine 1.7. Liver enzymes moderately elevated Lactic acid 4.0 Troponin is elevated 0.09 Urine drug screen is negative Serum alcohol less than 10. CT of the head and neck is negative for acute process for either side Chest x-ray is negative for acute process and I reviewed the chest x-rays and agree EKG showing sinus tachycardia at [address] depression 01/21 Patient remains confused, he open eyes to verbal stimuli, he can tell me his name and then he goes back to sleep No abnormal movement Patient sodium 1 significantly elevated at 155, he was given D5W at 75 mL/h, rep eat sodium this morning is still pending Patient looks dehydrated. Phosphatic Fertilizer Supervisor evaluated the patient for higher troponin which is thought secondary to dehydration however he has some ST depression in the lateral leads, hemming and tacking machine operator recommended heparin drip x 48 hours as well as metoprolol and Lipit or which are ordered. Yesterday I discussed the case with the neurologist on-call, he recommended to hold on consult since the patient has severe metabolic abnormality. This morning patient remains confused with no significant improvement therefore we are going to reconsult neurology service. He has elevated hemoglobin and hematocrit, most likely secondary to dehydration, keep following levels till sodium level corrected and then reassess. Abdomen looks soft, patient denies abdominal pain or chest pain. 01/22 Patient was moved to the ICU yesterday because of concerns about inability to protect airway He was able to breathe okay this morning. He remains severely confused He remains on D5W at 150 mL/h, sodium down to 152 today Creatinine back to reference range Repeat CT of the brain is negative Heparin drip was discontinued and patient placed on subcutaneous heparin 01/23 Patient is becoming more encephalopathic, he is nonverbal, does not follow command does not answer questions. This is despite correction of his hyponatremia and other metabolic abnormalities like acute kidney injury. And there is concerned about ability to protect airway so far he does not need intervention but close monitoring in the ICU Today patient underwent lumbar puncture and results Showing RBC is elevated at 28, nucleated cells are 0. Glucose slightly elevated 72 and protein 106. Cultures pending Also patient has low-grade fever and is Amandeep concentrated sample of CBC improved except for WBC remains elevated about 15.1 K, neurology service recommended to consider ID team, Patient is also history of suicidal ideation however his urine drug screen on admission showed only marijuana Prognosis remains guarded 01/24 Patient ict analyst desaturated down to 70s associated with brief period of rigidness and shakiness and his eyes were wide open, this episode happened twice and lasted for short time seconds to minutes. He had EEG initially done which was unremarkable another EEG is requested today, patient was started on IV Keppra 1000 mg Also ABG shows evidence of acute hypoxic hypercapnic respiratory failure, patient was unable to protect his airway and he got intubated today. In the meantime there is no abnormal movement currently. He is afebrile this morning. Last fever was on 01/22 and it was 100 degrees which is low-grade. Labs showing leukocytosis worse 21.7, hemoglobin 18, platelet count is 188. pH 7.1, pCO2 is high at 95. Oxygen with pO2 of 86 while on 15 L. Sodium 137, potassium 3.3. Liver enzymes not significantly elevated. CSF culture permanent results are still pending 01/25 Patient yesterday could not protect his airway and he was intubated and placed on mechanical ventilation. Pulmonary/critical care team following closely and help with vent management. No seizure-like activity or abnormal movements noted. EEG done and reviewed. Neurologist on the case. Patient is currently on IV Keppra 1000 twice daily Also patient started on IV vancomycin and cefepime per ID team recommendation for suspected sepsis. Cultures are pending. Patient has no fever for the last 3 days. Leukocyte count today still mildly elevated at 16 but coming down from 21 yesterday. Electrolytes are improving. Patient remains in critical condition. 01/26 Patient remains in the ICU intubated and on mechanical ventilation He is currently covered with IV vancomycin and cefepime, for suspected pneumon ia. Nasal culture growing MRSA and sputum culture growing Klebsiella pneumonia 01/27 Patient remains intubated and on mechanical ventilation without sedation. No abnormal movements noted He is afebrile and blood pressure holding well. WBCs 11. He still somewhat acidotic with pH 7.3 and pCO2 high 61. BMP and liver enzymes were unremarkable. Nasal screen is positive for MRSA sputum Culture is positive for Klebsiella CSF culture from pulmonary suction presumptive MRSA. However suspicion of TELLERS SUPERVISOR infection is very low as CSF sample showing no leukocytes, 0 WBC. Also sugar is high rather than low which goes against infection. And also his neck was supple on examined him on admission. I discussed with the staff the CSF sample waited more than 5 hours before it goes to the lab And chest x-ray showing significant pneumonia in the left lower lobe Currently he is on cefepime also on IV Keppra 02/02 I am assuming the care of the patient today. He remains in the ICU intubated and with no much improvement in his encephalopathy The exact cause of his encephalopathy is unknown. Pulmonary team on the case. Patient may benefit from tracheostomy and PEG tube replacement. Pending legal guardianship determination on Monday He keeps covered with antibiotic currently with ceftriaxone and [facility] Surgery team were following the case for recent GI bleed. Currently looks stable 02/03 Patient on mechanical ventilation, is currently intubated. Still severely encephalopathic Afebrile and vital stable No leukocytosis and hemoglobin 10.2. BMP is unremarkable. Patient will be evaluated for tracheostomy and PEG tube placement after legal guardianship determination 02/05/2024 Patient is seen in follow-up continues in the ICU on mechanical ventilation and difficult weaning planning for PEG and trach tentatively 02/06/2024. Patient was awaiting an appointed guardian and social work following going to court today. Discussed also possible comfort measures. Patient continues on mechanical ventilation and continuing to undergo neurological workup. Repeat CT brain is ordered and pending. 02/06/2024 Patient is seen in follow-up today and has received a public guardian and remains full code at this time with plans on receiving PEG tube and tracheostomy today with general surgery. Patient will require 3 attempts at weaning off the vent prior to [facility] accepting the patient. Neurology following as patient remains minimally responsive and follow-up CT was negative and patient is off sedation. 02/07/2024 Patient is seen in follow-up today with multiple consultations following maintained in the ICU status post PEG and trach placement with general surgery. Patient to initiate tube feedings today per dietary recommendations and will monitor for tolerance. Patient's abdomen appeared distended and abdominal x-ray done showing no acute process. Patient is maintained on scheduled bowel movement and has had 3 bowel movements today. Continue as needed bowel regimen. Plan is for possibly [facility] in the next few days and will require trials and failures of weaning from ventilation 02/08/2024 Patient is seen in follow-up today has received a tracheostomy and PEG tube. Tube feedings are to start. Per nursing staff when attempting to wean patient desats quickly becomes extremely tachycardic and hypoxic. General surgery following and will be initiating on tube feedings and will continue with hoffman pportive care. Patient undergoing neurological workup and scheduled to undergo EEG. Patient does have a significant past medical history of extensive right lower extremity wound although appears stable at this time. 02/09/2024 Patient is seen and evaluated in follow-up today continues on mechanical ventilation via tracheostomy and also is continued on tube feeds. Patient has had 3 failed trial attempts at weaning from the vent and working on possible transfer to [facility] for further ongoing continued respiratory care. Patient is maintained on antibiotics with infectious disease following and will be finishing antibiotics today and being closely monitored. Follow-up on repeat CBC to monitor the white count. Patient also undergoing neurological workup. Patient remains off sedation as patient is minimally responsive 02/12/2024 Patient continues in the ICU on mechanical ventilation via tracheostomy awaiting to go to [facility]. Per social work insurance requiring peer to peer for authorization which needs to be performed by 02/13/2024. Patient has had 3 consecutive failed trial attempts at weaning from the vent and will continue. Multiple consultations following. Electrolytes to be replaced per protocol. 02/13/2024 Patient is seen in follow-up today continues in the ICU on mechanical ventilation. Attempted peer to peer review with insurance and was denied reporting they feel he is more appropriate for long-term at a vent assisted facility as his mentation continues to be the same. Patient does show facial grimace to pain although does not follow any commands. Attempting to wean is ongoing from the vent and will await pulmonary further evaluation. Patient is afebrile with no acute overnight events noted. Will discuss further with social work/case management regarding discharge planning. 02/14/2024 Patient is seen in follow-up today remains in the ICU on mechanical ventilation attempting weaning trials and CPAP. Patient continues to be minimally responsive only responding to painful stimuli. Patient's eyes are opening although not tracking and not following any commands. Patient was noted to have high residuals on tube feeds and being held and abdominal x-ray is ordered and pending. Patient is afebrile. Significant swelling of the upper extremities noted with some minimal improvement. Social work following placing multiple r eferrals to ECF's that accommodate ventilator assisted. Review of systems: Unable to obtain as patient is on mechanical ventilation and unresponsive, opening eyes although not tracking and not following any commands Physical exam: GENERAL: The patient is intubated on mechanical ventilation via tracheostomy, ill-appearing, elderly appearing HEENT: Pupils are round and equally reacting to light. EOMI. No scleral icterus. No conjunctival pallor. Normocephalic, atraumatic. No pharyngeal erythema. No thyromegaly. Tracheostomy noted CARDIOVASCULAR: S1 and S2 muffled PULMONARY: Diminished breath sounds bilaterally with some bronchial congestion otherwise chest is clear to auscultation, no wheezing , no crackles. ABDOMEN: Soft, obese, nontender, nondistended, normoactive bowel sounds. No p alpable organomegaly. PEG tube noted MUSCULOSKELETAL: No joint swelling or deformity. EXTREMITIES: No cyanosis, clubbing, bilateral upper extremity edema, 2+ pitting NEUROLOGICAL: Gross neurological examination did not reveal any focal deficits. Could not completely assess as patient is on mechanical ventilation and unresponsive SKIN: No rashes. no petechiae. Edematous Assessment: Severe encephalopathy, could be multifactorial. Metabolic/toxic encephalopathy contributing, however no specified cause was found for his encephalopathy Acute hypoxic hypercapnic respiratory failure, patient unable to protect airway secondary to above, s/p intubation and mechanical ventilation with inability to wean, Status post tracheostomy and PEG tube placement 02/06/2024 Suspected seizure-like activity on 01/24 x 2 Suspected sepsis. Secondary to pneumonia, aspiration Acute GI bleed, improved Hypernatremia. Resolved Non-STEMI with elevated troponin with some EKG changes but patient denied chest pain. Acute kidney injury, improving History of depression, psychosis and suicidal ideation Severe dehydration and hypovolemia History of chronic left leg wound, currently wound is closed, no evidence of cellulitis but mild deformity in the muscles of the left leg Elevated lactic acid GI prophylaxis DVT prophylaxis Full code Plan: Continue with ICU management. Patient with multiple consultations following including continuing undergoing neurological workup. General surgery following as patient has unable to wean from mechanical ventilation and is status post PEG and trach placement. Tube feedings currently on hold and monitoring residuals as patient was having high residuals. Abdominal x-ray ordered and pending. Patient has undergone 3 failed attempts at weaning from the ventilator and was working on transfer to LTAC. Attempted peer to peer with Dr. Robles and patient was deemed more appropriate for a long-term vent assisted care facility rather than LTAC as his mentation continues to be unresponsive and not following commands. Social work following placing multiple referrals to other ECF's and currently pending for any excepting facilities. Infectious disease following and has completed antibiotics and is being be monitored off antibiotics. Social work following and has obtained legal guardianship Patient was not approved for [facility] and insurance recommending long- term care at a ventilator appropriate facility Currently remains full code Patient will require extensive rehab and continuous respiratory care. Due to multiple complex medical issues, overall prognosis is extremely guarded at this time The impression and plan of care has been dictated by Carol Toney, Nurse Practitioner as directed. Dr. Azucena MD I have performed a history and examination and MDM of this patient, discussed the same with the dictator, and agree with the dictator's assessment and plan as written ,documented as a scribe. Based on total visit time, I have performed more than 50% of the visit. Objective - Vital Signs Vital signs: Vital Signs Temp 97.8 F 02/14/24 08:00 Pulse 92 02/14/24 10:00 Resp 19 02/14/24 10:00 BP 162/96 02/14/24 10:00 Pulse Ox 98 02/14/24 10:00 FiO2 30 02/14/24 09:00 Intake & Output 02/13/24 02/14/24 02/14/24 18:59 06:59 18:59 Intake Total 6716 819 292 Output Total 3683 405 325 Balance 848 -56 -33 Weight 77.3 kg 78.2 kg Intake: IV 560 240 140 0.9 @ 10 260 240 40 Magnesium Sulfate-D5w Pmx 300 100 1 gm In Dextrose/Water 1 100ml.bag @ 100 mls/hr IVPB ONCE ONE Rx#: [id number] Oral 520 Tube Feeding 793 549 122 Other 90 30 30 Output: Urine 1115 775 325 Stool 100 Other: Voiding Method Indwelling Catheter Indwelling Catheter ABP, PAP, CO, CI - Last Documented Arterial Blood Pressure 121/54 - Labs CBC & Chem 7: 02/15/24 02:46 02/15/24 02:46 Labs: Abnormal Lab Results - Last 24 Hours (Table) 02/13/24 02/14/24 02/14/24 Range/Units 17:35 05:29 05:42 RBC (4.30-5.90) m/uL Hgb (13.0-17.5) gm/dL Hct (39.0-53.0) % MCV (80.0-100.0) fL ABG pH 7.50 H (7.35-7.45) ABG HCO3 33 H (21-25) mmol/L ABG Total CO2 34 H (19-24) mmol/L ABG O2 Saturation 97.2 H (94-97) % Hemoglobin 10.5 L (13.0-17.5) gm/dL Sodium (137-145) mmol/L BUN (9-20) mg/dL Creatinine (0.66-1.25) mg/dL POC Glucose (mg/dL) 125 H 112 H (70-110) mg/dL Magnesium (1.6-2.3) mg/dL 02/14/24 02/14/24 Range/Units 05:57 05:57 RBC 3.19 L (4.30-5.90) m/uL Hgb 10.6 L (13.0-17.5) gm/dL Hct 33.5 L (39.0-53.0) % MCV 105.0 H (80.0-100.0) fL ABG pH (7.35-7.45) ABG HCO3 (21-25) mmol/L ABG Total CO2 (19-24) mmol/L ABG O2 Saturation (94-97) % Hemoglobin (13.0-17.5) gm/dL Sodium 132 L (137-145) mmol/L BUN 7 L (9-20) mg/dL Creatinine 0.30 L (0.66-1.25) mg/dL POC Glucose (mg/dL) (70-110) mg/dL Magnesium 1.4 L (1.6-2.3) mg/dL
[2024-02-15 04:48] LABS: ABG Base Excess 5.8 mmol/L; ABG HCO3 30 mmol/L (21-25); ABG Oxygen Saturation 98.8 % (94-97); ABG PCO2 40 mmHg (35-45); ABG PH 7.48 (7.35-7.45); ABG PO2 107 mmHg (83-108); ABG TCO2 31 mmol/L (19-24); Allen Test Performed? Yes
[2024-02-15 05:33] LABS: Glucose,Whole Blood 88 mg/dL (70-110)
[2024-02-15] MEDS: MAGNESIUM SULFATE-D5W PMX 1 GM in DEXTROSE/WATER 1 100ML.BAG IVPB SCH (06:17)
--- NOTE | 2024-02-15 07:28 | XR ---
EXAMINATION TYPE: XR chest 1V DATE OF EXAM: 02/15/2024 COMPARISON: [facility] CLINICAL INDICATION: Male, 68 years old with history of mechanical ventilation; , TECHNIQUE: XR chest 1V views of the chest. FINDINGS: Left-sided consolidation and pleural effusion stable. Heart size stable. Right lung clear. Tracheosto my tube stable. Atherosclerotic change aorta. Degenerative changes spine. IMPRESSION: 1. Stable left lower lobe infiltrate and small pleural effusion. [facility], , 02/15/2024 7:26 AM
[2024-02-15] MEDS: levETIRAcetam ORAL SOLN 500 MG/5 ML CUP PEG/G-TUBE SCH (10:41)
[2024-02-15 10:58] VITALS: BMI 22.7
[2024-02-15 11:50] LABS: Glucose,Whole Blood 85 mg/dL (70-110)
--- NOTE | 2024-02-15 13:12 | P.PN ---
Subjective Progress Note Date: 02/14/24 Principal diagnosis: Reason for follow-up is sepsis possible aspiration pneumonia Patient is a 68-year-old male with a past medical history significant for COPD hypertension [place] osteoarthritis patient did have a history of necrotizing infection of the left lower extremity with initial admission to hospital mental status changes subsequently have worsening of his respiratory status requiring intubation and concern for possible aspiration pneumonia.Patient did have a EGD with evidence of esophagitis colonoscopy possibility of stercoral ulcer in the rectum On today's evaluation that is 02/14/2024,the patient remains to be afebrile, patient is on ventilator through the trach FiO2 is currently stable at 30% patient is hemodynamic stable not requiring any pressor support continues to be on TPN no diarrhea in the change reported by the nursing staff. Patient white count is 9.7, creatinine 0.30 UA did not show any pyuria Objective - Vital Signs Vital signs: Vital Signs Temp 98.0 F 02/14/24 12:00 Pulse 93 02/14/24 12:00 Resp 11 L 02/14/24 12:00 BP 138/80 02/14/24 12:00 Pulse Ox 98 02/14/24 12:00 FiO2 30 02/14/24 12:00 Intake & Output 02/13/24 02/14/24 02/14/24 18:59 06:59 18:59 Intake Total 1963 819 484 Output Total 1115 875 680 Balance 848 -56 -196 Weight 77.3 kg 78.2 kg 78.2 kg Intake: IV 560 240 180 0.9 @ 10 260 240 80 Magnesium Sulfate-D5w Pmx 300 100 1 gm In Dextrose/Water 1 100ml.bag @ 100 mls/hr IVPB ONCE ONE Rx#: [id number] Oral 520 Tube Feeding 793 549 244 Other 90 30 60 Output: Urine 1115 775 680 Stool 100 Other: Voiding Method Indwelling Catheter Indwelling Catheter Indwelling Catheter ABP, PAP, CO, CI - Last Documented Arterial Blood Pressure 121/54 - Exam GENERAL DESCRIPTION: An elderly male intubated through the trach RESPIRATORY SYSTEM: Unlabored breathing , decreased breath sounds at bases HEART: S1 S2 regular rate and rhythm , ABDOMEN: Soft , no tenderness EXTREMITIES: No edema feet - Labs CBC & Chem 7: 02/15/24 02:46 02/15/24 02:46 Labs: Abnormal Lab Results - Last 24 Hours (Table) 02/13/24 02/14/24 02/14/24 Range/Units 17:35 05:29 05:42 RBC (4.30-5.90) m/uL Hgb (13.0-17.5) gm/dL Hct (39.0-53.0) % MCV (80.0-100.0) fL ABG pH 7.50 H (7.35-7.45) ABG HCO3 33 H (21-25) mmol/L ABG Total CO2 34 H (19-24) mmol/L ABG O2 Saturation 97.2 H (94-97) % Hemoglobin 10.5 L (13.0-17.5) gm/dL Sodium (137-145) mmol/L BUN (9-20) mg/dL Creatinine (0.66-1.25) mg/dL POC Glucose (mg/dL) 125 H 112 H (70-110) mg/dL Magnesium (1.6-2.3) mg/dL Urine Blood (Negative) Urine RBC (0-5) /hpf Amorphous Sediment (None) /hpf Hyaline Casts (0-2) /lpf Urine Mucus (None) /hpf 02/14/24 02/14/24 02/14/24 Range/Units 05:57 05:57 10:15 RBC 3.19 L (4.30-5.90) m/uL Hgb 10.6 L (13.0-17.5) gm/dL Hct 33.5 L (39.0-53.0) % MCV 105.0 H (80.0-100.0) fL ABG pH (7.35-7.45) ABG HCO3 (21-25) mmol/L ABG Total CO2 (19-24) mmol/L ABG O2 Saturation (94-97) % Hemoglobin (13.0-17.5) gm/dL Sodium 132 L (137-145) mmol/L BUN 7 L (9-20) mg/dL Creatinine 0.30 L (0.66-1.25) mg/dL POC Glucose (mg/dL) (70-110) mg/dL Magnesium 1.4 L (1.6-2.3) mg/dL Urine Blood Small H (Negative) Urine RBC 8 H (0-5) /hpf Amorphous Sediment Rare H (None) /hpf Hyaline Casts 3 H (0-2) /lpf Urine Mucus Rare H (None) /hpf Assessment and Plan (1) Aspiration pneumonia Current Visit: Yes Status: Acute Code(s): J69.0 - PNEUMONITIS DUE TO INHALATION OF FOOD AND VOMIT SNOMED Code(s): 567926651 (2) Leukocytosis Current Visit: Yes Status: Acute Code(s): D72.829 - ELEVATED WHITE BLOOD CELL COUNT, UNSPECIFIED SNOMED Code(s): 658941321 (3) Allergy to multiple antibiotics Current Visit: No Status: Acute Code(s): Z88.1 - ALLERGY STATUS TO OTHER ANTIBIOTIC AGENTS SNOMED Code(s): 414687411 Plan: 1patient with an episode of sepsis in this patient who did have significant evaded white count patient also have mild hypotension and source is likely aspiration pneumonitis, sputum culture positive for Klebsiella and patient has received adequate by therapy for underlying Klebsiella pneumonia 2- patient CSF culture growing presumptive MRSA however CSF white count was 0 and glucose was normal at 72 more likely representing contamination rather than true infection 3patient subsequently did have issues with elevated white count source likely GI and the patient white count did respond to the cefepime followed by Rocephin and Flagyl, patient will complete his IV Rocephin and Flagyl as of 02/09/2024 4patient continues to be afebrile and did have a normal white count over the last few days and will be monitored closely off antibiotic therapy Dictation was produced using Docstoc dictation software. please excuse any grammatical, word or spelling errors. Time with Patient: Less than 30
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
--- NOTE | 2024-02-15 15:32 | P.PN ---
Subjective Progress Note Date: 02/15/24 Principal diagnosis: Reason for follow-up is sepsis possible aspiration pneumonia Patient is a 68-year-old male with a past medical history significant for COPD hypertension [place] osteoarthritis patient did have a history of necrotizing infection of the left lower extremity with initial admission to hospital mental status changes subsequently have worsening of his respiratory status requiring intubation and concern for possible aspiration pneumonia.Patient did have a EGD with evidence of esophagitis colonoscopy possibility of stercoral ulcer in the rectum On today's evaluation that is 02/15/2024, the patient continues to be afebrile, the patient is on ventilator through the trach FiO2 is currently stable at 30% patient is hemodynamically stable not requiring any pressor support seen to be slightly waking up with open eyes but no other purposeful response. Patient white count slightly up to 11.7 today, creatinine is 0.31 Objective - Vital Signs Vital signs: Vital Signs Temp 98.9 F 02/15/24 12:00 Pulse 88 02/15/24 12:00 Resp 12 02/15/24 12:00 BP 158/92 02/15/24 12:00 Pulse Ox 93 L 02/15/24 12:00 FiO2 30 02/15/24 12:00 Intake & Output 02/14/24 02/15/24 02/15/24 18:59 06:59 18:59 Intake Total 746 220 310 Output Total 1550 1070 790 Balance -804 -850 -480 Weight 78.2 kg 76 kg 76 kg Intake: IV 320 220 120 0.9 @ 10 220 220 120 Magnesium Sulfate-D5w Pmx 100 1 gm In Dextrose/Water 1 100ml.bag @ 100 mls/hr IVPB ONCE ONE Rx#: [id number] Intake, IV Titration 100 Amount Magnesium Sulfate-D5w Pmx 100 1 gm In Dextrose/Water 1 100ml.bag @ 100 mls/hr IVPB Q1H [facility] Rx#: [id number] Tube Feeding 366 60 Other 60 30 Output: Urine 1550 1070 790 Other: Voiding Method Indwelling Catheter Indwelling Catheter # Bowel Movements 1 1 ABP, PAP, CO, CI - Last Documented Arterial Blood Pressure 121/54 - Exam GENERAL DESCRIPTION: An elderly male intubated through the trach RESPIRATORY SYSTEM: Unlabored breathing , decreased breath sounds at bases HEART: S1 S2 regular rate and rhythm , ABDOMEN: Soft , no tenderness EXTREMITIES: No edema feet - Labs CBC & Chem 7: 02/15/24 02:46 02/15/24 02:46 Labs: Abnormal Lab Results - Last 24 Hours (Table) 02/15/24 02/15/24 02/15/24 Range/Units 02:46 02:46 04:43 WBC 11.7 H (3.8-10.6) k/uL RBC 3.14 L (4.30-5.90) m/uL Hgb 10.6 L (13.0-17.5) gm/dL Hct 33.2 L (39.0-53.0) % MCV 105.8 H (80.0-100.0) fL Neutrophils # 9.2 H (1.3-7.7) k/uL ABG pH 7.48 H (7.35-7.45) ABG HCO3 30 H (21-25) mmol/L ABG Total CO2 31 H (19-24) mmol/L ABG O2 Saturation 98.8 H (94-97) % Hemoglobin 10.9 L (13.0-17.5) gm/dL BUN 6 L (9-20) mg/dL Creatinine 0.31 L (0.66-1.25) mg/dL Magnesium 1.4 L (1.6-2.3) mg/dL Assessment and Plan (1) Aspiration pneumonia Current Visit: Yes Status: Acute Code(s): J69.0 - PNEUMONITIS DUE TO INHALATION OF FOOD AND VOMIT SNOMED Code(s): 076985202 (2) Leukocytosis Current Visit: Yes Status: Acute Code(s): D72.829 - ELEVATED WHITE BLOOD CELL COUNT, UNSPECIFIED SNOMED Code(s): 124907194 (3) Allergy to multiple antibiotics Current Visit: No Status: Acute Code(s): Z88.1 - ALLERGY STATUS TO OTHER ANTIBIOTIC AGENTS SNOMED Code(s): 765339410 Plan: 1patient with an episode of sepsis in this patient who did have significant evaded white count patient also have mild hypotension and source is likely aspiration pneumonitis, sputum culture positive for Klebsiella and patient has received adequate by therapy for underlying Klebsiella pneumonia 2- patient CSF culture growing presumptive MRSA however CSF white count was 0 and glucose was normal at 72 more likely representing contamination rather than true infection 3patient subsequently did have issues with elevated white count source likely GI and the patient white count did respond to the cefepime followed by Rocephin and Flagyl, patient will complete his IV Rocephin and Flagyl as of 02/09/2024 4patient continues to be afebrile white count slightly up to 11.7 today will monitor closely, repeat his CBC with a.m. lab and monitor clinical course closely Dictation was produced using [employer] dictation software. please excuse any grammatical, word or spelling errors. Time with Patient: Less than 30
[2024-02-15 17:37] LABS: Glucose,Whole Blood 102 mg/dL (70-110)
[2024-02-15] MEDS: CLINDAMYCIN 600 MG in DEXTROSE 5% IN WATER 50 ML IVPB SCH (18:01)
--- NOTE | 2024-02-15 21:28 | P.PN ---
Subjective Progress Note Date: 02/15/24 Patient seen and examined at bedside. No acute events. Tolerating tracheostomy. Continues to have occasional high residual with tube feeding. Objective - Vital Signs Vital signs: Vital Signs Temp 98 F 02/15/24 20:00 Pulse 87 02/15/24 21:00 Resp 29 H 02/15/24 21:00 BP 143/83 02/15/24 21:00 Pulse Ox 97 02/15/24 21:00 FiO2 30 02/15/24 20:00 Intake & Output 02/15/24 02/15/24 02/16/24 06:59 18:59 06:59 Intake Total 220 540 160 Output Total 1070 1690 320 Balance -850 -1150 -160 Weight 76 kg 76 kg Intake: IV 220 220 40 0.9 @ 10 220 220 40 Intake, IV Titration 100 Amount Magnesium Sulfate-D5w Pmx 100 1 gm In Dextrose/Water 1 100ml.bag @ 100 mls/hr IVPB Q1H [facility] Rx#: [id number] Tube Feeding 190 90 Other 30 30 Output: Urine 1070 1590 220 Stool 100 100 Other: Voiding Method Indwelling Catheter Indwelling Catheter Indwelling Catheter # Bowel Movements 1 1 ABP, PAP, CO, CI - Last Documented Arterial Blood Pressure 121/54 - Constitutional General appearance: Present: no acute distress - Gastrointestinal Gastrointestinal Comment(s): Soft, nontender, nondistended, gastric tube in place - Labs CBC & Chem 7: 02/15/24 02:46 02/15/24 02:46 Labs: Abnormal Lab Results - Last 24 Hours (Table) 02/15/24 02/15/24 02/15/24 Range/Units 02:46 02:46 04:43 WBC 11.7 H (3.8-10.6) k/uL RBC 3.14 L (4.30-5.90) m/uL Hgb 10.6 L (13.0-17.5) gm/dL Hct 33.2 L (39.0-53.0) % MCV 105.8 H (80.0-100.0) fL Neutrophils # 9.2 H (1.3-7.7) k/uL ABG pH 7.48 H (7.35-7.45) ABG HCO3 30 H (21-25) mmol/L ABG Total CO2 31 H (19-24) mmol/L ABG O2 Saturation 98.8 H (94-97) % Hemoglobin 10.9 L (13.0-17.5) gm/dL BUN 6 L (9-20) mg/dL Creatinine 0.31 L (0.66-1.25) mg/dL Magnesium 1.4 L (1.6-2.3) mg/dL Microbiology - Last 24 Hours (Table) 01/24/24 10:35 Acid Fast Bacilli Smear - Preliminary Cerebral Spinal Fluid Acid Fast Bacilli Culture - Preliminary Assessment and Plan Plan: 68-year-old male with GI bleed that appears to be resolving. Status post tracheostomy and PEG tube placement. Continue to advance tube feeding as tolerated. Tracheostomy site examined with some surrounding skin irritation and mild drainage. To be evaluated by ID for possibility of antibiotic treatment.
[2024-02-15 23:40] LABS: Glucose,Whole Blood 100 mg/dL (70-110)
[2024-02-16 03:50] LABS: African American GFR (CKD) >90 (>60 ml/min/1.73 sqM); Anion Gap 3 mmol/L; Blood Urea Nitrogen 8 mg/dL (9-20); Calcium 9.5 mg/dL (8.4-10.2); Carbon Dioxide 26 mmol/L (22-30); Chloride 110 mmol/L (98-107); Glucose 116 mg/dL (74-99); Magnesium 1.5 mg/dL (1.6-2.3); Non-African American GFR(CKD) >90 (>60 ml/min/1.73 sqM); Potassium 3.8 mmol/L (3.5-5.1); Sodium 139 mmol/L (137-145)
[2024-02-16] MEDS: MAGNESIUM SULFATE-D5W PMX 1 GM in DEXTROSE/WATER 1 100ML.BAG IVPB SCH (05:00)
[2024-02-16] MEDS: POTASSIUM BICARBONATE/CIT AC 20 MEQ TABLET.EFF NG-TUBE SCH (05:06)
[2024-02-16 05:10] LABS: HCT 34.6 % (39.0-53.0); HGB 11.1 gm/dL (13.0-17.5); MCH 33.6 pg (25.0-35.0); MCHC 31.9 g/dL (31.0-37.0); MCV 105.2 fL (80.0-100.0); Macrocytosis Moderate; Mean Platelet Volume 10.1; Platelet Count 250 k/uL (150-450); RBC 3.29 m/uL (4.30-5.90); RDW 15.8 % (11.5-15.5); WBC 11.1 k/uL (3.8-10.6)
[2024-02-16 05:15] LABS: Glucose,Whole Blood 124 mg/dL (70-110)
[2024-02-16 05:21] LABS: ABG Base Excess 4.6 mmol/L; ABG HCO3 29 mmol/L (21-25); ABG Oxygen Saturation 95.8 % (94-97); ABG PCO2 40 mmHg (35-45); ABG PH 7.47 (7.35-7.45); ABG PO2 76 mmHg (83-108); ABG TCO2 30 mmol/L (19-24); Allen Test Performed? Yes
--- NOTE | 2024-02-16 05:40 | P.PN ---
Subjective Progress Note Date: 02/15/24 This is a pleasant 68 years old male with past medical history of psychosis and multiple admission for suicidal ideation, hypertension, osteoarthritis Patient brought to the emergency room because he was found by his roommate on the floor, hard to wake up. When he came to emergency room he was answering questions but looks like he is continued to be confused Patient currently opens eyes and follows simple commands but not all every command. Also he answers some questions. However he looks confused significantly. He is disoriented to time place and person. He has no insight. But he denies any pain. No headache. No dizziness. Moves arms and legs. No tingling. Patient on admission was tachycardic and tachypneic but afebrile He had mild leukocytosis, high hemoglobin at 25 and sodium 156 and creatinine 1.7. Liver enzymes moderately elevated Lactic acid 4.0 Troponin is elevated 0.09 Urine drug screen is negative Serum alcohol less than 10. CT of the head and neck is negative for acute process for either side Chest x-ray is negative for acute process and I reviewed the chest x-rays and agree EKG showing sinus tachycardia at [address] depression 01/21 Patient remains confused, he open eyes to verbal stimuli, he can tell me his name and then he goes back to sleep No abnormal movement Patient sodium 1 significantly elevated at 155, he was given D5W at 75 mL/h, rep eat sodium this morning is still pending Patient looks dehydrated. Fertilizer Processing Supervisor evaluated the patient for higher troponin which is thought secondary to dehydration however he has some ST depression in the lateral leads, title i math tutor recommended heparin drip x 48 hours as well as metoprolol and Lipit or which are ordered. Yesterday I discussed the case with the neurologist on-call, he recommended to hold on consult since the patient has severe metabolic abnormality. This morning patient remains confused with no significant improvement therefore we are going to reconsult neurology service. He has elevated hemoglobin and hematocrit, most likely secondary to dehydration, keep following levels till sodium level corrected and then reassess. Abdomen looks soft, patient denies abdominal pain or chest pain. 01/22 Patient was moved to the ICU yesterday because of concerns about inability to protect airway He was able to breathe okay this morning. He remains severely confused He remains on D5W at 150 mL/h, sodium down to 152 today Creatinine back to reference range Repeat CT of the brain is negative Heparin drip was discontinued and patient placed on subcutaneous heparin 01/23 Patient is becoming more encephalopathic, he is nonverbal, does not follow command does not answer questions. This is despite correction of his hyponatremia and other metabolic abnormalities like acute kidney injury. And there is concerned about ability to protect airway so far he does not need intervention but close monitoring in the ICU Today patient underwent lumbar puncture and results Showing RBC is elevated at 28, nucleated cells are 0. Glucose slightly elevated 72 and protein 106. 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 He had EEG initially done which was unremarkable another EEG is requested today, patient was started on IV Keppra 1000 mg Also ABG shows evidence of acute hypoxic hypercapnic respiratory failure, patient was unable to protect his airway and he got intubated today. In the meantime there is no abnormal movement currently. He is afebrile this morning. Last fever was on 01/22 and it was 100 degrees which is low-grade. Labs showing leukocytosis worse 21.7, hemoglobin 18, platelet count is 188. pH 7.1, pCO2 is high at 95. Oxygen with pO2 of 86 while on 15 L. Sodium 137, potassium 3.3. Liver enzymes not significantly elevated. CSF culture permanent results are still pending 01/25 Patient yesterday could not protect his airway and he was intubated and placed on mechanical ventilation. Pulmonary/critical care team following closely and help with vent management. No seizure-like activity or abnormal movements noted. EEG done and reviewed. Neurologist on the case. Patient is currently on IV Keppra 1000 twice daily Also patient started on IV vancomycin and cefepime per ID team recommendation for suspected sepsis. Cultures are pending. Patient has no fever for the last 3 days. Leukocyte count today still mildly elevated at 16 but coming down from 21 yesterday. Electrolytes are improving. Patient remains in critical condition. 01/26 Patient remains in the ICU intubated and on mechanical ventilation He is currently covered with IV vancomycin and cefepime, for suspected pneumon ia. Nasal culture growing MRSA and sputum culture growing Klebsiella pneumonia 01/27 Patient remains intubated and on mechanical ventilation without sedation. No abnormal movements noted He is afebrile and blood pressure holding well. WBCs 11. He still somewhat acidotic with pH 7.3 and pCO2 high 61. BMP and liver enzymes were unremarkable. Nasal screen is positive for MRSA sputum Culture is positive for Klebsiella CSF culture from pulmonary suction presumptive MRSA. However suspicion of CATHODE WASHER infection is very low as CSF sample showing no leukocytes, 0 WBC. Also sugar is high rather than low which goes against infection. And also his neck was supple on examined him on admission. I discussed with the staff the CSF sample waited more than 5 hours before it goes to the lab And chest x-ray showing significant pneumonia in the left lower lobe Currently he is on cefepime also on IV Keppra 02/02 I am assuming the care of the patient today. He remains in the ICU intubated and with no much improvement in his encephalopathy The exact cause of his encephalopathy is unknown. Pulmonary team on the case. Patient may benefit from tracheostomy and PEG tube replacement. Pending legal guardianship determination on Monday He keeps covered with antibiotic currently with ceftriaxone and [facility] Surgery team were following the case for recent GI bleed. Currently looks stable 02/03 Patient on mechanical ventilation, is currently intubated. Still severely encephalopathic Afebrile and vital stable No leukocytosis and hemoglobin 10.2. BMP is unremarkable. Patient will be evaluated for tracheostomy and PEG tube placement after legal guardianship determination 02/05/2024 Patient is seen in follow-up continues in the ICU on mechanical ventilation and difficult weaning planning for PEG and trach tentatively 02/06/2024. Patient was awaiting an appointed guardian and social work following going to court today. Discussed also possible comfort measures. Patient continues on mechanical ventilation and continuing to undergo neurological workup. Repeat CT brain is ordered and pending. 02/06/2024 Patient is seen in follow-up today and has received a public guardian and remains full code at this time with plans on receiving PEG tube and tracheostomy today with general surgery. Patient will require 3 attempts at weaning off the vent prior to [facility] accepting the patient. Neurology following as patient remains minimally responsive and follow-up CT was negative and patient is off sedation. 02/07/2024 Patient is seen in follow-up today with multiple consultations following maintained in the ICU status post PEG and trach placement with general surgery. Patient to initiate tube feedings today per dietary recommendations and will monitor for tolerance. Patient's abdomen appeared distended and abdominal x-ray done showing no acute process. Patient is maintained on scheduled bowel movement and has had 3 bowel movements today. Continue as needed bowel regimen. Plan is for possibly [facility] in the next few days and will require trials and failures of weaning from ventilation 02/08/2024 Patient is seen in follow-up today has received a tracheostomy and PEG tube. Tube feedings are to start. Per nursing staff when attempting to wean patient desats quickly becomes extremely tachycardic and hypoxic. General surgery following and will be initiating on tube feedings and will continue with hoffman pportive care. Patient undergoing neurological workup and scheduled to undergo EEG. Patient does have a significant past medical history of extensive right lower extremity wound although appears stable at this time. 02/09/2024 Patient is seen and evaluated in follow-up today continues on mechanical ventilation via tracheostomy and also is continued on tube feeds. Patient has had 3 failed trial attempts at weaning from the vent and working on possible transfer to [facility] for further ongoing continued respiratory care. Patient is maintained on antibiotics with infectious disease following and will be finishing antibiotics today and being closely monitored. Follow-up on repeat CBC to monitor the white count. Patient also undergoing neurological workup. Patient remains off sedation as patient is minimally responsive 02/12/2024 Patient continues in the ICU on mechanical ventilation via tracheostomy awaiting to go to [facility]. Per social work insurance requiring peer to peer for authorization which needs to be performed by 02/13/2024. Patient has had 3 consecutive failed trial attempts at weaning from the vent and will continue. Multiple consultations following. Electrolytes to be replaced per protocol. 02/13/2024 Patient is seen in follow-up today continues in the ICU on mechanical ventilation. Attempted peer to peer review with insurance and was denied reporting they feel he is more appropriate for long-term at a vent assisted facility as his mentation continues to be the same. Patient does show facial grimace to pain although does not follow any commands. Attempting to wean is ongoing from the vent and will await pulmonary further evaluation. Patient is afebrile with no acute overnight events noted. Will discuss further with social work/case management regarding discharge planning. 02/14/2024 Patient is seen in follow-up today remains in the ICU on mechanical ventilation attempting weaning trials and CPAP. Patient continues to be minimally responsive only responding to painful stimuli. Patient's eyes are opening although not tracking and not following any commands. Patient was noted to have high residuals on tube feeds and being held and abdominal x-ray is ordered and pending. Patient is afebrile. Significant swelling of the upper extremities noted with some minimal improvement. Social work following placing multiple r eferrals to ECF's that accommodate ventilator assisted. 02/15/2024 Patient is seen in follow-up today continues in the ICU tolerating CPAP trials and tolerated 12 hours on CPAP yesterday. Patient with multiple consultations following including general surgery and had some issues with high residuals overnight being started on lactulose and tube feedings were held. Tube feedings resumed and tolerating thus far. Continue with suctioning and oral care along with tracheostomy care. General surgery reevaluated the site with some mild inflammation noted and sutures are intact and not ready for removal at this time. Patient is afebrile and white count trending down and will be given a dose of clindamycin prophylactically. Patient has been accepted at [facility] and has received insurance authorization. Patient will discharge on 02/16/2024 Review of systems: Unable to obtain as patient is on mechanical ventilation and unresponsive, opening eyes although not tracking and starting to try to follow commands is not squeezing the hand lightly Physical exam: GENERAL: The patient is intubated on mechanical ventilation via tracheostomy, ill-appearing, elderly appearing HEENT: Pupils are round and equally reacting to light. EOMI. No scleral icterus. No conjunctival pallor. Normocephalic, atraumatic. No pharyngeal erythema. No thyromegaly. Tracheostomy noted with some mild inflammation noted with no drainage or purulence or redness at this time CARDIOVASCULAR: S1 and S2 muffled PULMONARY: Diminished breath sounds bilaterally with some bronchial congestion otherwise chest is clear to auscultation, no wheezing , no crackles. ABDOMEN: Soft, obese, nontender, nondistended, normoactive bowel sounds. No palpable organomegaly. PEG tube noted MUSCULOSKELETAL: No joint swelling or deformity. EXTREMITIES: No cyanosis, clubbing, bilateral upper extremity edema, 2+ pitting NEUROLOGICAL: Gross neurological examination did not reveal any focal deficits. Could not completely assess as patient is on mechanical ventilation and unresponsive SKIN: No rashes. no petechiae. Edematous Assessment: Severe encephalopathy, could be multifactorial. Metabolic/toxic encephalopathy contributing, however no specified cause was found for his encephalopathy Acute hypoxic hypercapnic respiratory failure, patient unable to protect airway secondary to above, s/p intubation and mechanical ventilation with inability to wean, Status post tracheostomy and PEG tube placement 02/06/2024 Suspected seizure-like activity on 01/24 x 2 Suspected sepsis. Secondary to pneumonia, aspiration Acute GI bleed, improved Hypernatremia. Resolved Non-STEMI with elevated troponin with some EKG changes but patient denied chest pain. Acute kidney injury, improving History of depression, psychosis and suicidal ideation Severe dehydration and hypovolemia History of chronic left leg wound, currently wound is closed, no evidence of cellulitis but mild deformity in the muscles of the left leg Elevated lactic acid GI prophylaxis DVT prophylaxis Full code Plan: Continue with ICU management. Patient with multiple consultations following i General surgery reevaluated the tracheostomy site recommending to continue with sutures for now and was given a dose of clindamycin. There is no drainage or redness, just some inflammation. Patient with ongoing CPAP trials and per nursing staff tolerated 12 hours on CPAP yesterday, continuing to wean from the vent ongoing Social work following and has obtained legal guardianship. Patient has been accepted at [facility] and has received insurance authorization. Plan for discharge on 02/16/2024 Patient was not approved for [facility] due to his ongoing mentation status and insurance recommending long-term care at a ventilator appropriate facility Currently remains full code Patient will require extensive rehab and continuous respiratory care. Due to multiple complex medical issues, overall prognosis is extremely guarded at this time The impression and plan of care has been dictated by Carol Toney, Nurse Practitioner as directed. Dr. Azucena MD I have performed a history and examination and MDM of this patient, discussed the same with the dictator, and agree with the dictator's assessment and plan as written ,documented as a scribe. Based on total visit time, I have performed more than 50% of the visit. Objective - Vital Signs Vital signs: Vital Signs Temp 97.9 F 02/15/24 08:00 Pulse 86 02/15/24 09:00 Resp 34 H 02/15/24 09:00 BP 158/85 02/15/24 09:00 Pulse Ox 98 02/15/24 09:00 FiO2 30 02/15/24 09:00 Intake & Output 02/14/24 02/15/24 02/15/24 18:59 06:59 18:59 Intake Total 746 220 140 Output Total 1550 1070 275 Balance -804 -850 -135 Weight 78.2 kg 76 kg Intake: IV 320 220 40 0.9 @ 10 220 220 40 Magnesium Sulfate-D5w Pmx 100 1 gm In Dextrose/Water 1 100ml.bag @ 100 mls/hr IVPB ONCE ONE Rx#: [id number] Intake, IV Titration 100 Amount Magnesium Sulfate-D5w Pmx 100 1 gm In Dextrose/Water 1 100ml.bag @ 100 mls/hr IVPB Q1H [facility] Rx#: [id number] Tube Feeding 366 Other 60 Output: Urine 1550 1070 275 Other: Voiding Method Indwelling Catheter Indwelling Catheter # Bowel Movements 1 1 ABP, PAP, CO, CI - Last Documented Arterial Blood Pressure 121/54 - Labs CBC & Chem 7: 02/16/24 05:00 02/16/24 03:08 Labs: Abnormal Lab Results - Last 24 Hours (Table) 02/14/24 02/15/24 02/15/24 Range/Units 10:15 02:46 02:46 WBC 11.7 H (3.8-10.6) k/uL RBC 3.14 L (4.30-5.90) m/uL Hgb 10.6 L (13.0-17.5) gm/dL Hct 33.2 L (39.0-53.0) % MCV 105.8 H (80.0-100.0) fL Neutrophils # 9.2 H (1.3-7.7) k/uL ABG pH (7.35-7.45) ABG HCO3 (21-25) mmol/L ABG Total CO2 (19-24) mmol/L ABG O2 Saturation (94-97) % Hemoglobin (13.0-17.5) gm/dL BUN 6 L (9-20) mg/dL Creatinine 0.31 L (0.66-1.25) mg/dL Magnesium 1.4 L (1.6-2.3) mg/dL Urine Blood Small H (Negative) Urine RBC 8 H (0-5) /hpf Amorphous Sediment Rare H (None) /hpf Hyaline Casts 3 H (0-2) /lpf Urine Mucus Rare H (None) /hpf 02/15/24 Range/Units 04:43 WBC (3.8-10.6) k/uL RBC (4.30-5.90) m/uL Hgb (13.0-17.5) gm/dL Hct (39.0-53.0) % MCV (80.0-100.0) fL Neutrophils # (1.3-7.7) k/uL ABG pH 7.48 H (7.35-7.45) ABG HCO3 30 H (21-25) mmol/L ABG Total CO2 31 H (19-24) mmol/L ABG O2 Saturation 98.8 H (94-97) % Hemoglobin 10.9 L (13.0-17.5) gm/dL BUN (9-20) mg/dL Creatinine (0.66-1.25) mg/dL Magnesium (1.6-2.3) mg/dL Urine Blood (Negative) Urine RBC (0-5) /hpf Amorphous Sediment (None) /hpf Hyaline Casts (0-2) /lpf Urine Mucus (None) /hpf
--- NOTE | 2024-02-16 07:41 | XR ---
EXAMINATION TYPE: XR chest 1V portable DATE OF EXAM: 02/16/2024 COMPARISON: 02/14/2023 CLINICAL INDICATION: Male, 68 years old with history of trach to vent; , TECHNIQUE: XR chest 1V portable views of the chest. FINDINGS: Left-sided consolidation and pleural effusion stable. Heart size stable. Right lung clear. Tracheosto my tube stable. Atherosclerotic change aorta. Degenerative changes spine. IMPRESSION: 1. Stable left lower lobe infiltrate and small pleural effusion. [facility], , 02/16/2024 7:39 AM
[2024-02-16 08:15] VITALS: TEMP 97.6
--- NOTE | 2024-02-16 10:42 | P.DS ---
Providers Date of admission: 01/20/24 20:57 Expected date of discharge: 02/16/24 Attending physician: Ezekiel Louie MD Consults: 01/22/24 07:29 Consult Physician Routine Consulting Provider: Chadd Zaragoza Consult Reason/Comments: ams Do you want consulting provider notified?: Yes 01/22/24 11:45 Consult Physician Stat Consulting Provider: Lucy Mclean Consult Reason/Comments: periods of apnea Do you want consulting provider notified?: Already Contacted 01/22/24 13:08 Consult Physician Urgent Consulting Provider: Cristo Rosas Consult Reason/Comments: hypernatremia Do you want consulting provider notified?: Yes 01/24/24 19:20 Consult Physician Urgent Consulting Provider: Neli Larson Consult Reason/Comments: rule out infection Do you want consulting provider notified?: Yes 01/29/24 14:42 Consult Physician Urgent Consulting Provider: Nettie Clement Consult Reason/Comments: Lower GI bleed Do you want consulting provider notified?: Yes Primary care physician: [facility] Course: Final diagnosis Severe encephalopathy, could be multifactorial. Metabolic/toxic encephalopathy contributing, however no specified cause was found for his encephalopathy Acute hypoxic hypercapnic respiratory failure, patient unable to protect airway secondary to above, s/p intubation and mechanical ventilation with inability to wean, Status post tracheostomy and PEG tube placement 02/06/2024 Suspected seizure-like activity on 01/24 x 2 Suspected sepsis. Secondary to pneumonia, aspiration Acute GI bleed, improved Hypernatremia. Resolved Non-STEMI with elevated troponin with some EKG changes but patient denied chest pain. Acute kidney injury, improving History of depression, psychosis and suicidal ideation Severe dehydration and hypovolemia History of chronic left leg wound, currently wound is closed, no evidence of cellulitis but mild deformity in the muscles of the left leg Elevated lactic acid GI prophylaxis DVT prophylaxis Full code Discharge disposition Patient is being discharged in a stable condition with guarded prognosis to [facility]. Patient will follow-up with primary care provider in the outpatient setting upon discharge. Patient is to continue with tracheostomy care and ventilation management. During this hospitalization, patient did receive a public guardian. Total time taken is greater than 35 minutes. Hospital course This is a 68 year-old male who was recently admitted unresponsive and found on the floor by her roommate with altered mental status and metabolic encephalopathy. Patient continued to be confused and minimally responsive and concern for protecting airway, patient was ultimately intubated and brought to the ICU. Continuing ongoing workup although patient's mentation continued to be unresponsive and had been maintained off of any sedation continue to be unresponsive. Patient was difficult to wean and ultimately required tracheostomy and PEG tube placement. Patient is maintained on tube feeds recommended continue with bowel regimen and tube feeding as instructed with close monitoring of residuals. Patient did have some high residuals a few days prior. Patient did receive a public guardian on this admission and remains a full code. No distant relatives noted and no family nearby. Initially attempting to go to LTAC although given his mentation and continued unresponsiveness, they felt necessary to go to ECF that was ventilator appropriate for long-term care. Patient was denied by insurance to go to LTAC. Patient has been accepted at [facility] and insurance authorization was approved. Consultations have cleared the patient for discharge and will be discharged today. Please refer to other consultation notes for further HPI. Currently no reports of chest pain, shortness of breath, or palpitations. Patient is afebrile. No reports of nausea or vomiting and patient is tolerating tube feeds. Patient will be going to [facility] today. Overall guarded prognosis Physical exam: Gen: This is a 68-year-old male who is awake, opening eyes although not tracking and not following much commands. Patient was able to squeeze hand lightly yesterday. Well-developed, elderly appearing HEENT: Head is atraumatic, normocephalic. Pupils equal, round. Sclerae is anicteric. NECK: Supple. No JVD. No lymphadenopathy. No thyromegaly. LUNGS: Diminished breath sounds bilaterally otherwise clear to auscultation. No wheezes, coarse rhonchi. No intercostal retractions. HEART: S1, S2 are muffled ABDOMEN: Soft. PEG tube noted. Bowel sounds are present. No masses. No tenderness. EXTREMITIES: No pedal edema. No calf tenderness. Upper extremity edema 2+ pitting noted bilaterally, chronic left leg wound with MRSA and multiple previou s surgeries on this leg, wounds are closed at this time NEUROLOGICAL: Patient is, alert and oriented x0. Diffusely weak Please refer to medication reconciliation sheet for a list of medications. The impression and plan of care has been dictated by Carol Toney, Nurse Practitioner as directed. Dr. Azucena MD I have performed a history and examination and MDM of this patient, discussed the same with the dictator, and agree with the dictator's assessment and plan as written ,documented as a scribe. Based on total visit time, I have performed more than 50% of the visit. Patient Condition at Discharge: Fair Plan - Discharge Summary New Discharge Prescriptions: New bisacodyL [Dulcolax] 10 mg RECTAL DAILY suppositor Ipratropium-Albuterol Nebulize [Duoneb 0.5 mg-3 mg/3 ml Soln] 3 ml INHALATION RT-Q4H each levETIRAcetam ORAL SOLN [Keppra Oral Soln] 1,000 mg PEG/G-TUBE Q12HR ml Enoxaparin [Lovenox] 40 mg SQ DAILY each INSULIN ASPART (NovoLOG) [NovoLOG (formulary)] 0 unit SQ Q6H each Metoclopramide [Reglan] 10 mg PO ACHS #20 tab Thiamine [Vitamin B-1] 100 mg PO DAILY tab Potassium Chloride [Potassium Chloride ER (K-Dur GEQ)] 10 meq PEG/G-TUBE AC- BID #30 tab Lactulose [Cephulac] 30 gm PO DAILY ml Folic Acid 1 mg PO DAILY tab Atorvastatin [Lipitor] 40 mg PO HS tab Chlorhexidine Gluconate [Peridex] 15 ml MUCOUS MEM BID ml Pantoprazole Sodium [Protonix] 40 mg PEG/G-TUBE DAILY #30 tab Continue Albuterol Inhaler [Ventolin Hfa Inhaler] 5 puff INHALATION Q6H PRN PRN Reason: shortness of breath Discharge Medication List Albuterol Inhaler [Ventolin Hfa Inhaler] 5 puff INHALATION Q6H PRN 01/21/24 [H istory] Atorvastatin [Lipitor] 40 mg PO HS tab 02/16/24 [Rx] Chlorhexidine Gluconate [Peridex] 15 ml MUCOUS MEM BID ml 02/16/24 [Rx] Enoxaparin [Lovenox] 40 mg SQ DAILY each 02/16/24 [Rx] Folic Acid 1 mg PO DAILY tab 02/16/24 [Rx] INSULIN ASPART (NovoLOG) [NovoLOG (formulary)] 0 unit SQ Q6H each 02/16/24 [Rx] Ipratropium-Albuterol Nebulize [Duoneb 0.5 mg-3 mg/3 ml Soln] 3 ml INHALATION RT-Q4H each 02/16/24 [Rx] Lactulose [Cephulac] 30 gm PO DAILY ml 02/16/24 [Rx] Metoclopramide [Reglan] 10 mg PO ACHS #20 tab 02/16/24 [Rx] Pantoprazole Sodium [Protonix] 40 mg PEG/G-TUBE DAILY #30 tab 02/16/24 [Rx] Potassium Chloride [Potassium Chloride ER (K-Dur GEQ)] 10 meq PEG/G-TUBE AC-BID #30 tab 02/16/24 [Rx] Thiamine [Vitamin B-1] 100 mg PO DAILY tab 02/16/24 [Rx] bisacodyL [Dulcolax] 10 mg RECTAL DAILY suppositor 02/16/24 [Rx] levETIRAcetam ORAL SOLN [Keppra Oral Soln] 1,000 mg PEG/G-TUBE Q12HR ml 02/16/24 [Rx] Follow up Appointment(s)/Referral(s): Ana Renteria MD [Primary Care Provider] - 1-2 days Activity/Diet/Wound Care/Special Instructions: [facility] Patient is continued on tube feeds of Pivot 1.5 goal rate of 50 with 1200 total volume daily including 30 cc of free water flushes every 4 hours Continue aspiration precautions with head of the bed elevated 30 to 45 degrees at all times as well as monitoring for residuals Discharge Disposition: TRANSFER TO SNF/ECF
[2024-02-16 11:42] VITALS: BP 139/86; PULSE 96; RESP 42
[2024-02-16 11:46] LABS: Glucose,Whole Blood 130 mg/dL (70-110)
--- NOTE | 2024-02-16 12:50 | P.PN ---
Subjective Progress Note Date: 02/16/24 Principal diagnosis: Reason for follow-up is sepsis possible aspiration pneumonia Patient is a 68-year-old male with a past medical history significant for COPD hypertension SC osteoarthritis patient did have a history of necrotizing infection of the left lower extremity with initial admission to hospital mental status changes subsequently have worsening of his respiratory status requiring intubation and concern for possible aspiration pneumonia.Patient did have a EGD with evidence of esophagitis colonoscopy possibility of stercoral ulcer in the rectum On today's evaluation that is 02/16/2024, Patient is afebrile patient is currently on ventilator through the trach FiO2 is currently stable at 30% no significant purulent secretion through the ET patient did not have any diarrhea as reported by the nursing staff and is tolerating his tube feeds. Patient white count is 11.1, creatinine 0.29 Objective - Vital Signs Vital signs: Vital Signs Temp 97.6 F 02/16/24 08:00 Pulse 93 02/16/24 09:00 Resp 20 02/16/24 09:00 BP 132/89 02/16/24 09:00 Pulse Ox 98 02/16/24 09:00 FiO2 30 02/16/24 08:25 Intake & Output 02/15/24 02/16/24 02/16/24 18:59 06:59 18:59 Intake Total 540 930 300 Output Total 1690 875 275 Balance -1150 55 25 Weight 76 kg 74.3 kg Intake: IV 220 420 140 0.9 @ 10 220 220 40 Magnesium Sulfate-D5w Pmx 100 1 gm In Dextrose/Water 1 100ml.bag @ 100 mls/hr IVPB ONCE ONE Rx#: [id number] Magnesium Sulfate-D5w Pmx 200 1 gm In Dextrose/Water 1 100ml.bag @ 100 mls/hr IVPB Q1H [facility] Rx#: [id number] Intake, IV Titration 100 Amount Magnesium Sulfate-D5w Pmx 100 1 gm In Dextrose/Water 1 100ml.bag @ 100 mls/hr IVPB Q1H [facility] Rx#: [id number] Tube Feeding 190 420 130 Other 30 90 30 Output: Urine 1590 575 275 Stool 100 300 Other: Voiding Method Indwelling Catheter Indwelling Catheter Indwelling Catheter # Bowel Movements 1 ABP, PAP, CO, CI - Last Documented Arterial Blood Pressure 121/54 - Exam GENERAL DESCRIPTION: An elderly male intubated through the trach RESPIRATORY SYSTEM: Unlabored breathing , decreased breath sounds at bases HEART: S1 S2 regular rate and rhythm , ABDOMEN: Soft , no tenderness EXTREMITIES: No edema feet - Labs CBC & Chem 7: 02/16/24 05:00 02/16/24 07:59 Labs: Abnormal Lab Results - Last 24 Hours (Table) 02/16/24 02/16/24 02/16/24 Range/Units 03:08 05:00 05:13 WBC 11.1 H (3.8-10.6) k/uL RBC 3.29 L (4.30-5.90) m/uL Hgb 11.1 L (13.0-17.5) gm/dL Hct 34.6 L (39.0-53.0) % MCV 105.2 H (80.0-100.0) fL RDW 15.8 H (11.5-15.5) % ABG pH (7.35-7.45) ABG pO2 (83-108) mmHg ABG HCO3 (21-25) mmol/L ABG Total CO2 (19-24) mmol/L Hemoglobin (13.0-17.5) gm/dL Chloride 110 H (98-107) mmol/L BUN 8 L (9-20) mg/dL Creatinine 0.29 L (0.66-1.25) mg/dL Glucose 116 H (74-99) mg/dL POC Glucose (mg/dL) 124 H (70-110) mg/dL Magnesium 1.5 L (1.6-2.3) mg/dL 02/16/24 Range/Units 05:18 WBC (3.8-10.6) k/uL RBC (4.30-5.90) m/uL Hgb (13.0-17.5) gm/dL Hct (39.0-53.0) % MCV (80.0-100.0) fL RDW (11.5-15.5) % ABG pH 7.47 H (7.35-7.45) ABG pO2 76 L (83-108) mmHg ABG HCO3 29 H (21-25) mmol/L ABG Total CO2 30 H (19-24) mmol/L Hemoglobin 11.3 L (13.0-17.5) gm/dL Chloride (98-107) mmol/L BUN (9-20) mg/dL Creatinine (0.66-1.25) mg/dL Glucose (74-99) mg/dL POC Glucose (mg/dL) (70-110) mg/dL Magnesium (1.6-2.3) mg/dL Microbiology - Last 24 Hours (Table) 01/24/24 10:35 Acid Fast Bacilli Smear - Preliminary Cerebral Spinal Fluid Acid Fast Bacilli Culture - Preliminary Assessment and Plan (1) Aspiration pneumonia Current Visit: Yes Status: Acute Code(s): J69.0 - PNEUMONITIS DUE TO INHALATION OF FOOD AND VOMIT SNOMED Code(s): 841981636 (2) Leukocytosis Current Visit: Yes Status: Acute Code(s): D72.829 - ELEVATED WHITE BLOOD CELL COUNT, UNSPECIFIED SNOMED Code(s): 573560839 (3) Allergy to multiple antibiotics Current Visit: No Status: Acute Code(s): Z88.1 - ALLERGY STATUS TO OTHER ANTIBIOTIC AGENTS SNOMED Code(s): 877988182 Plan: 1patient with an episode of sepsis in this patient who did have significant evaded white count patient also have mild hypotension and source is likely aspiration pneumonitis, sputum culture positive for Klebsiella and patient has received adequate by therapy for underlying Klebsiella pneumonia 2- patient CSF culture growing presumptive MRSA however CSF white count was 0 and glucose was normal at 72 more likely representing contamination rather than true infection 3patient subsequently did have issues with elevated white count source likely GI and the patient white count did respond to the cefepime followed by Rocephin and Flagyl, patient will complete his IV Rocephin and Flagyl as of 02/09/2024 4patient continues to be afebrile, and has completed his antibiotic course no need for antibiotic on discharge this was discussed with the REAL TIME TRADER for admitting team Dictation was produced using [employer] dictation software. please excuse any grammatical, word or spelling errors.
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
== END 2024-02-16 13:04 | DRG 4 ==
LOC: EC 18:33 → EEVIPCON 20:57 → 3SCARD 20:57 → 2SICU 01-22 12:16
PROVIDERS: ADMIT Internal Medicine; ATTEND Internal Medicine
PROC: 009U3ZX Drainage of Spinal Canal, Percutaneous Approach, Diagnostic (ICD-10-PCS; 2024-01-24)
PROC: 3E0G76Z Introduction of Nutritional Substance into Upper GI, Via Natural or Artificial Opening (ICD-10-PCS; 2024-01-24)
PROC: 5A1955Z Respiratory Ventilation, Greater than 96 Consecutive Hours (ICD-10-PCS; 2024-01-25)
PROC: 02HV33Z Insertion of Infusion Device into Superior Vena Cava, Percutaneous Approach (ICD-10-PCS; 2024-01-25)
PROC: 03HY32Z Insertion of Monitoring Device into Upper Artery, Percutaneous Approach (ICD-10-PCS; 2024-01-25)
PROC: 4A133B1 Monitoring of Arterial Pressure, Peripheral, Percutaneous Approach (ICD-10-PCS; 2024-01-25)
PROC: 4A133J1 Monitoring of Arterial Pulse, Peripheral, Percutaneous Approach (ICD-10-PCS; 2024-01-25)
PROC: 0BH18EZ Insertion of Endotracheal Airway into Trachea, Via Natural or Artificial Opening Endoscopic (ICD-10-PCS; 2024-01-25)
PROC: 30233N1 Transfusion of Nonautologous Red Blood Cells into Peripheral Vein, Percutaneous Approach (ICD-10-PCS; 2024-01-29)
PROC: 0DJ08ZZ Inspection of Upper Intestinal Tract, Via Natural or Artificial Opening Endoscopic (ICD-10-PCS; 2024-02-01)
PROC: 0DJD8ZZ Inspection of Lower Intestinal Tract, Via Natural or Artificial Opening Endoscopic (ICD-10-PCS; 2024-02-01)
PROC: 0B9L8ZX Drainage of Left Lung, Via Natural or Artificial Opening Endoscopic, Diagnostic (ICD-10-PCS; 2024-02-01)
PROC: 0BC78ZZ Extirpation of Matter from Left Main Bronchus, Via Natural or Artificial Opening Endoscopic (ICD-10-PCS; 2024-02-01)
PROC: 0DH63UZ Insertion of Feeding Device into Stomach, Percutaneous Approach (ICD-10-PCS; 2024-02-06)
PROC: 3E0G76Z Introduction of Nutritional Substance into Upper GI, Via Natural or Artificial Opening (ICD-10-PCS; 2024-02-06)
PROC: 0B110F4 Bypass Trachea to Cutaneous with Tracheostomy Device, Open Approach (ICD-10-PCS; principal; 2024-02-06 12:30)
DX: N17.9 Acute kidney failure, unspecified (principal); J15.0 Pneumonia due to Klebsiella pneumoniae; A41.9 Sepsis, unspecified organism; G92.8 Other toxic encephalopathy; K57.31 Diverticulosis of large intestine without perforation or abscess with bleeding; J69.0 Pneumonitis due to inhalation of food and vomit; I21.A1 Myocardial infarction type 2; J96.02 Acute respiratory failure with hypercapnia; J96.01 Acute respiratory failure with hypoxia; M86.68 Other chronic osteomyelitis, other site; J44.0 Chronic obstructive pulmonary disease with (acute) lower respiratory infection; K56.41 Fecal impaction; F10.20 Alcohol dependence, uncomplicated; I77.810 Thoracic aortic ectasia; R56.9 Unspecified convulsions; E87.4 Mixed disorder of acid-base balance; E87.0 Hyperosmolality and hypernatremia; Z59.00 Homelessness unspecified; K62.6 Ulcer of anus and rectum; E87.1 Hypo-osmolality and hyponatremia; K92.1 Melena; J98.19 Other pulmonary collapse; I11.9 Hypertensive heart disease without heart failure; G93.89 Other specified disorders of brain; F32.A Depression, unspecified; F12.10 Cannabis abuse, uncomplicated; F17.210 Nicotine dependence, cigarettes, uncomplicated; E86.0 Dehydration; K21.00 Gastro-esophageal reflux disease with esophagitis, without bleeding; R13.10 Dysphagia, unspecified; J98.4 Other disorders of lung; E86.1 Hypovolemia; M19.90 Unspecified osteoarthritis, unspecified site; I25.10 Atherosclerotic heart disease of native coronary artery without angina pectoris; E87.8 Other disorders of electrolyte and fluid balance, not elsewhere classified; D75.1 Secondary polycythemia; D75.89 Other specified diseases of blood and blood-forming organs; E83.42 Hypomagnesemia; F43.10 Post-traumatic stress disorder, unspecified; H51.8 Other specified disorders of binocular movement; J32.4 Chronic pansinusitis; E87.6 Hypokalemia; F41.9 Anxiety disorder, unspecified; Y90.0 Blood alcohol level of less than 20 mg/100 ml; I25.2 Old myocardial infarction; Z87.820 Personal history of traumatic brain injury; Z86.14 Personal history of Methicillin resistant Staphylococcus aureus infection; Z86.19 Personal history of other infectious and parasitic diseases; Z86.73 Personal history of transient ischemic attack (TIA), and cerebral infarction without residual deficits; Z22.322 Carrier or suspected carrier of Methicillin resistant Staphylococcus aureus; Z88.1 Allergy status to other antibiotic agents; Z88.2 Allergy status to sulfonamides; Z88.0 Allergy status to penicillin; Z88.6 Allergy status to analgesic agent
CPT/HCPCS: 36410; 36415; 36573; 36600; 43235; 43246; 45378; 51702; 70450; 70470; 70488; 70496; 71045; 71046; 72125; 74018; 74174; 76937; 80048; 80053; 80143; 80179; 80202; 80306; 80320; 81001; 81003; 82140; 82550; 82607; 82746; 82805; 82945; 83605; 83735; 83930; 84132; 84145; 84157; 84295; 84425; 84484; 85025; 85027; 85610; 85730; 86592; 86780; 86788; 86789; 86850; 86900; 86901; 86920; 87040; 87070; 87077; 87116; 87186; 87205; 87206; 87324; 87496; 87498; 87529; 87798; 89050; 93005; 93308; 94002; 94003; 94640; 95813; 95816; 95822; 96360; 96361; 99291